=== PATIENT | female | born 1965 | race Caucasian/White ===

== ENCOUNTER 2016-05-16 21:22 | Observation (INO) | payer MEDICARE, MEDICAID ==
[~2016-05-16] VITALS: Ht 167.6 cm; Wt 93.5 kg
[~2016-05-16 21:22] MED LIST: ?ANTIBIOTIC; ABILIFY; ALPR0.25 PO; AMOX400T12 PO; ARIP15TA; ARIP15TA PO; ARIP20TA9 PO; ARMO250T3 PO; ARPZ10T; ARPZ10T PO; ATOR20TA66 PO; BREX2TAB; CEFD300C3 PO; CEFU500T PO; CEPH-507 PO; CEPH500C; CEPH500C PO; CITA40TA19 PO; CLIN300C3 PO; COUMADIN; DARI15TA4 PO; DICL75TA2 PO; DOXY-13 PO; DOXY100T61 PO; ESCI20TA2; ESCI20TA38 PO; ESCT10T; FENO54TA PO; FEXO-45 PO; FURO20TA4; FURO40TA4 PO; FURO80TA PO; GLIP-197; GLIP10TA13 PO; GLIP10TA23 PO; GLIP5TAB13 PO; GLIPIZIDE; GLPZ10TCR; GLPZ5TCR; HYDR-2890 PO; HYDR-34 PO; HYDR-3720 PO; HYDR-3812; HYDR-3812 PO; HYDR118S10 PO; HYDR1CAP2 PO; HYDR1TAB PO; HYDROCODONE BIT/ACET; IBP800T PO; INSULIN; LANTUS; LEVO40CA PO; LEXAPRO; LISI10TA PO; LISI20TA2 PO; MECL-124 PO; MECL25TA56 PO; METF-380 PO; METF500T; METFORMIN; METR500T21 PO; MPR22T TOP; MPR22T TP; MTF500T; MTF500T PO; MULT-608; MULT-963 PO; NITR-65 PO; NITR100C3 PO; PHEN-639 PO; PHEN200T27 PO; PNT40TEC PO; POTA10CA16 PO; POTA10CA43 PO; POTA20TA15 PO; RT-ALBUINH IH; SCR1T1 PO; SMXTMP10ML PO; SOLI10TA4 PO; SULF1TAB35 PO; SULF1TAB38 PO; TOPI50TA2 PO; TRAM-21 PO; TRAM-42 PO; TRAM50TA2 PO; VENL75CA93 PO; WARF10TA PO; WARF10TA4 PO; WARF10TA44 PO; WARF7.5T; WRF10T; WRF10T PO; WRF3T; XANAX; [UNRECOGNIZED DRUG - CODE] PO; [UNRECOGNIZED DRUG - OTHER] PO
--- OUTSIDE RECORDS SUMMARY | 2016-05-16 21:27 | XMS REPORT | Continuity of Care Document ---
Author Author [facility] Organization [facility] Address Unknown Phone Unavailable Care Team Providers Care Brand Advisor Name Role Phone Jorge Rocha PCP [phone] Source Comments Some departments are not documenting in the electronic medical record. If you do not see the information that you expected, contact Release of Information in the Health Information Management department at [phone] for further assistance in locating additional records.[facility] Active Allergies and Adverse Reactions Allergen Noted Date Severity Reactions Comments Bactrim 12/07/2013 HIVES Levaquin 12/07/2013 SYNCOPE Tachycardia Current Medications Prescription Sig. Disp. Refills Start End Date Status Date metformin-ER(+) Take 1,000 mg by mouth Active (FORTAMET) 1,000 mg twice daily. tablet lidocaine (LIDODERM) 5 % Apply to knee daily as 30 Patch 1 12/08/19 Active topical patch needed 14 furosemide (LASIX) 40 mg Take 40 mg by mouth twice Active tablet daily. Iloperidone (FANAPT) 12 Take 24 mg by mouth Active mg tab daily. ARIPiprazole (ABILIFY) 5 Take 5 mg by mouth daily. Active mg tablet ALPRAZolam (XANAX) 0.5 mg Take 0.5 mg by mouth Active tablet three times daily as needed. albuterol (VENTOLIN HFA, Inhale 2 Puffs by mouth Active PROAIR HFA) 90 every 6 hours as needed. mcg/actuation inhaler topiramate (TOPAMAX) 50 Take 100 mg by mouth Active mg tablet twice daily. dextroamphetamine SR Take 10 mg by mouth twice Active (DEXEDRINE SPANSULE) 10 daily mg capsule potassium chloride SR Take 20 mEq by mouth Active (K-DUR) 20 mEq tablet daily. exenatide(+) (RICCI) 10 Inject 10 mcg into Active mcg/dose(250 mcg/mL) 2.4 area(s) as directed twice mL pnij injection pen daily with meals. atorvastatin (LIPITOR) 20 Take 20 mg by mouth Active mg tablet daily. Insulin Una Use as directed. Active (Disposable) (BD INSULIN PEN NEEDLE UF MINI) 31 x 3/16 " ndle WARFARIN SODIUM (WARFARIN Take by mouth. Active PO) glipiZIDE (GLUCOTROL) 5 Take 10 mg by mouth twice Active mg tablet daily with meals. fluticasone (FLONASE) 50 Apply 2 Sprays to each Active mcg/actuation nasal spray nostril as directed daily. armodafinil(+) (NUVIGIL) Take 250 mg by mouth Active 250 mg tab tablet daily. Active Problems Problem Noted Date Knee pain 12/07/2013 DM (diabetes mellitus) (HCC) 12/07/2013 History of DVT (deep vein thrombosis) 12/07/2013 Bilateral lower extremity edema 12/07/2013 Social History Tobacco Use Types Packs/Day Years Used Date Current Some Day Smoker 0.5 20 Alcohol Use Drinks/Week oz/Week Comments No Last Filed Vital Signs Vital Sign Reading Time Taken Blood Pressure 128/89 12/07/2013 10:22 AM CDT Pulse 88 12/07/2013 10:22 AM CDT Temperature 36.8 C (98.2 F) 12/07/2013 10:22 AM CDT Respiratory Rate 20 12/07/2013 10:22 AM CDT Height 1.65 m (5' 4.96") 12/07/2013 10:22 AM CDT Weight 91.082 kg (200 lb 12.8 12/07/2013 10:22 AM CDT oz) Body Mass Index 33.46 12/07/2013 10:22 AM CDT Oxygen Saturation - - Plan of Care Health Maintenance Due Date Last Done Comments Physical (Comprehensive) 09/28/1971 Exam Pertussis Vaccine 09/28/1975 Tetanus Vaccine 1981 Cervical Cancer Screening 1985 Breast Cancer Screening 2004 Colorectal Cancer 2014 Screening Influenza Vaccine 11/10/2015 Results from Last 3 Months Not on file
[2016-05-16 22:03] LABS: BASOPHILS % (AUTO) 0 % (0-10); EOSINOPHILS # (AUTO) 0.3 10^3/uL (0.0-0.3); EOSINOPHILS % (AUTO) 2 % (0-10); LYMPHOCYTES # (AUTO) 4.6 X 10^3 (1.0-4.0); LYMPHOCYTES % (AUTO) 38 % (12-44); MEAN CORPUSCULAR HEMOGLOBIN 31 PG (25-34); MEAN CORPUSCULAR HGB CONC 35 G/DL (32-36); MEAN CORPUSCULAR VOLUME 88 FL (80-99); MEAN PLATELET VOLUME 10.5 FL (7.4-10.4); MONOCYTES % (AUTO) 8 % (0-12); NEUTROPHILS # (AUTO) 6.3 X 10^3 (1.8-7.8); NEUTROPHILS % (AUTO) 52 % (42-75); PLATELET COUNT 231 10^3/uL (130-400); RED BLOOD COUNT 4.83 10^6/uL (4.35-5.85); RED CELL DISTRIBUTION WIDTH 13.1 % (10.0-14.5); WHITE BLOOD COUNT 12.2 10^3/uL (4.3-11.0)
[2016-05-16 22:12] LABS: BILIRUBIN,URINE NEGATIVE (NEGATIVE); KETONES,URINE NEGATIVE (NEGATIVE); LEUKOCYTE ESTERASE ,URINE NEGATIVE (NEGATIVE); NITRITE,URINE NEGATIVE (NEGATIVE); PH,URINE 6 (5-9); PROTEIN,URINE NEGATIVE (NEGATIVE); UROBILINOGEN,URINE NORMAL (NORMAL)
[2016-05-16 22:19] LABS: SQUAMOUS EPITHELIAL CELL,UR 0-2 /HPF; WBC,URINE 0-2 /HPF
[2016-05-16 22:25] LABS: ALANINE AMINOTRANSFERASE 19 U/L (0-55); ALBUMIN 3.9 G/DL (3.2-4.5); ANION GAP 12 MMOL/L (5-14); ASPARTATE AMINO TRANSFERASE 15 U/L (5-34); BILIRUBIN,TOTAL 0.3 MG/DL (0.1-1.0); BLOOD UREA NITROGEN 16 MG/DL (7-18); BUN/CREATININE RATIO 21; CALCIUM 9.2 MG/DL (8.5-10.1); CARBON DIOXIDE 21 MMOL/L (21-32); CHLORIDE 105 MMOL/L (98-107); CREATININE SERUM 0.77 MG/DL (0.60-1.30); GFR ESTIMATED > 60; GLUCOSE 240 MG/DL (70-105); MAGNESIUM 1.8 MG/DL (1.8-2.4); SALICYLATE < 5.0 MG/DL (5.0-20.0); SODIUM 138 MMOL/L (135-145); TOTAL PROTEIN 6.9 G/DL (6.4-8.2)
[2016-05-16 22:26] LABS: ACETAMINOPHEN < 10 UG/ML (10-30); ALCOHOL < 10 MG/DL (<10)
--- NOTE | 2016-05-16 22:51 | ED Psychosocial ---
General Chief Complaint: Overdose Stated Complaint: SUICIDE ATTEMPT Nursing Triage Note: PT TO ED 2 PER EMS FOR C/O SUICIDE ATTEMPT ONSET 2054 AFTER TAKING 18MG OF REXULTE. PT HIGHLY AGITATED, HOSTILE TOWARDS STAFF Source: patient Exam Limitations: no limitations History of Present Illness Time seen by provider: 21:29 Initial Comments This 50-year-old woman presents to the emergency room after over dosing on Rexulti as a suicide attempt. She reports being depressed because of missing her father whose birthday is tomorrow. She took the 9 tablets of Rexulti hoping that she would fall asleep and not wake up. She has a desire to "be with him" referring to her father. She denies any drug or alcohol use. She was initially resistant to care and eloped out the trauma bay doors. She was retrieved by EMS and staff. After discussion with this provider, she agreed to admission and to cooperate with evaluation. She is established with [facility]. She also has a lead case managermanaged care manager tomorrow at 11:00. Allergies and Home Medications Allergies Coded Allergies: levofloxacin (Verified Allergy, Unknown, 06/21/14) sulfamethoxazole (Unverified Allergy, Unknown, 06/21/14) trimethoprim (Unverified Allergy, Unknown, 06/21/14) Home Medications Atorvastatin 20 Mg Tablet 20 MG PO DAILY (Reported) Brexpiprazole 2 Mg Tablet #30 (Reported) Cefdinir 300 Mg Capsule #14 300 MG PO BID Prescribed by: FRANCO MORRISSEY on 10/16/15 1640 Furosemide 20 Mg Tablet #21 (Reported) Glipizide 10 Mg Tab.sr.24h 10 MG PO DAILY (Reported) Hydrocodone/Acetaminophen 1 Each Tablet #42 1 PO Q4H PRN PRN PAIN (Reported) Metformin Hcl 1,000 Mg Tablet 1,000 MG PO BID (Reported) Venlafaxine HCl 75 Mg Cap.er.24h #30 75 MG PO DAILY (Reported) Constitutional: no symptoms reported EENTM: no symptoms reported Respiratory: no symptoms reported Cardiovascular: no symptoms reported Gastrointestinal: no symptoms reported Genitourinary: no symptoms reported : No Musculoskeletal: no symptoms reported Skin: no symptoms reported Psychiatric/Neurological: See HPI Past Grvsrkt-Pkkytw-Ldutmk Hx Patient Social History Alcohol Use: Denies Use Recreational Drug Use: No Smoking Status: Current Everyday Smoker Type Used: Cigarettes 2nd Hand Smoke Exposure: No Recent Foreign Travel: No Contact w/Someone Who Travel: No Recent Infectious Disease Expo: No Recent Hopitalizations: Yes Immunizations Up To Date Tetanus Booster (TDap): Unknown Date of Pneumonia Vaccine: Jun 26, 2007 Date of Influenza Vaccine: Dec 09, 2013 Seasonal Allergies Seasonal Allergies: No Surgeries HX Surgeries: Yes (STENT IN R URETER, BACK SURGERY, SUSANA FILTER) Surgeries: Gallbladder, Hysterectomy, Orthopedic, Tubal Ligation Respiratory Hx Respiratory Disorders: Yes Respiratory Disorders: Asthma, Sleep Apnea, COPD Cardiovascular Hx Cardiac Disorders: Yes Cardiac Disorders: Coronary Artery Disease, Deep Vein Thrombosis Neurological Hx Neurological Disorders: No Neurological Disorders: Neuropathy 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 System Hx 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 Disorders: No Sexually Transmitted Disease: No HIV/AIDS: No 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 Genitourinary Hx Genitourinary Disorders: Yes Genitourinary Disorders: Kidney Stones Gastrointestinal Hx Gastrointestinal Disorders: No Gastrointestinal Disorders: Gastroesophageal Reflux Musculoskeletal Hx Musculoskeletal Disorders: Yes Musculoskeletal Disorders: Arthritis Endocrine Hx Endocrine Disorders: Yes Endocrine Disorders: Diabetes, Non-Insulin dep HEENT HX ENT Disorders: No Loss of Vision: Denies Hearing Impairment: Denies Cancer Hx Cancer: No Psychosocial Hx Psychiatric Problems: Yes Behavioral Health Disorders: Bipolar, Depression Integumentary HX Skin/Integumentary Disorder: No Blood Transfusions Hx Blood Disorders: Yes (HX OF BLOOD CLOTS) Adverse Reaction to a Blood Tr: No Family Medical History Significant Family History: No Pertinent Family Hx Family Medial History: Diabetes mellitus 19 FATHER EMPHYSEMA 19 FATHER EPIEPSY G8 SISTER Hypertension 19 MOTHER STROKE 19 MOTHER No Family History of: Asthma Physical Exam Vital Signs Vital Sign - Last 12Hours 05/16/16 21:23 Temp 98.1 Pulse 69 Resp 16 B/P 126/88 Pulse Ox 99 O2 Delivery Room Air Capillary Refill : Less Than 3 Seconds General Appearance: WD/WN mild distress HEENT: PERRL/EOMI normal ENT inspection Neck: normal inspection Respiratory: lungs clear normal breath sounds no respiratory distress no accessory muscle use Cardiovascular: regular rate, rhythm no edema no murmur Extremities: normal inspection Neurologic/Psychiatric: high pressure operator II-XII nml as tested no motor/sensory deficits alert oriented x 3 other (depressed yet has inappropriate laughter at times) Appearance/Memory: disheveled impaired insight Behavior/Eye Contact: cooperative (after coaxing) good eye contact normal speech Thoughts/Hallucinations: other (suicidal ideation with plan to overdose) Skin: normal color warm/dry Progress/Results/Core Measures Results/Orders Lab Results Laboratory Tests Test 05/16/16 21:56 05/16/16 22:03 Range/Units Acetaminophen Level < 10 L 10-30 UG/ML Alanine Aminotransferase (ALT/SGPT) 19 0-55 U/L Albumin 3.9 3.2-4.5 G/DL Alkaline Phosphatase 76 40-136 U/L Anion Gap 12 5-14 MMOL/L Aspartate Amino Transf (AST/SGOT) 15 5-34 U/L BUN/Creatinine Ratio 21 Basophils # (Auto) 0.0 0.0-0.1 10^3/uL Basophils (%) (Auto) 0 0-10 % Blood Urea Nitrogen 16 7-18 MG/DL Calcium Level 9.2 8.5-10.1 MG/DL Carbon Dioxide Level 21 21-32 MMOL/L Chloride Level 105 98-107 MMOL/L Creatinine 0.77 0.60-1.30 MG/DL Eosinophils # (Auto) 0.3 0.0-0.3 10^3/uL Eosinophils (%) (Auto) 2 0-10 % Estimat Glomerular Filtration Rate > 60 Glucose Level 240 H 70-105 MG/DL Hematocrit 43 35-52 % Hemoglobin 14.9 11.5-16.0 G/DL Lymphocytes # (Auto) 4.6 H 1.0-4.0 X 10^3 Lymphocytes (%) (Auto) 38 12-44 % Magnesium Level 1.8 1.8-2.4 MG/DL Mean Corpuscular Hemoglobin 31 25-34 PG Mean Corpuscular Hemoglobin Concent 35 32-36 G/DL Mean Corpuscular Volume 88 80-99 FL Mean Platelet Volume 10.5 H 7.4-10.4 FL Monocytes # (Auto) 1.0 0.0-1.0 X 10^3 Monocytes (%) (Auto) 8 0-12 % Neutrophils # (Auto) 6.3 1.8-7.8 X 10^3 Neutrophils (%) (Auto) 52 42-75 % Platelet Count 231 130-400 10^3/uL Potassium Level 4.0 3.6-5.0 MMOL/L Red Blood Count 4.83 4.35-5.85 10^6/uL Red Cell Distribution Width 13.1 10.0-14.5 % Salicylates Level < 5.0 L 5.0-20.0 MG/DL Serum Alcohol < 10 <10 MG/DL Sodium Level 138 135-145 MMOL/L TSH [place] Testing 4.32 0.35-4.94 UIU/ML Total Bilirubin 0.3 0.1-1.0 MG/DL Total Protein 6.9 6.4-8.2 G/DL White Blood Count 12.2 H 4.3-11.0 10^3/uL Ur Tricyclic Antidepressants Screen NEGATIVE NEGATIVE Urine Amphetamines Screen NEGATIVE NEGATIVE Urine Bacteria NEGATIVE /HPF Urine Barbiturates Screen NEGATIVE NEGATIVE Urine Benzodiazepines Screen NEGATIVE NEGATIVE Urine Bilirubin NEGATIVE NEGATIVE Urine Cannabinoids Screen NEGATIVE NEGATIVE Urine Casts NONE /LPF Urine Clarity CLEAR Urine Cocaine Screen NEGATIVE NEGATIVE Urine Color YELLOW Urine Crystals NONE /LPF Urine Culture Indicated NO Urine Glucose (UA) 1+ H NEGATIVE Urine Ketones NEGATIVE NEGATIVE Urine Leukocyte Esterase NEGATIVE NEGATIVE Urine Methadone Screen NEGATIVE NEGATIVE Urine Methamphetamines Screen NEGATIVE NEGATIVE Urine Mucus NEGATIVE /LPF Urine Nitrite NEGATIVE NEGATIVE Urine Opiates Screen NEGATIVE NEGATIVE Urine Oxycodone Screen NEGATIVE NEGATIVE Urine Phencyclidine Screen NEGATIVE NEGATIVE Urine Propoxyphene Screen NEGATIVE NEGATIVE Urine Protein NEGATIVE NEGATIVE Urine RBC NONE /HPF Urine RBC (Auto) 2+ H NEGATIVE Urine Specific [place] 1.010 L 1.016-1.022 Urine Squamous Epithelial Cells 0-2 /HPF Urine Urobilinogen NORMAL NORMAL MG/DL Urine WBC 0-2 /HPF Urine pH 6 5-9 My Orders Orders-ROYCE KNUTSON MD Acetaminophen (05/16/16 21:29) Alcohol (05/16/16 21:29) Cbc With Automated Diff (05/16/16 21:29) Comprehensive Metabolic Panel (05/16/16 21:29) Drug Screen Stat (Urine) (05/16/16 21:29) Magnesium (05/16/16 21:29) Salicylate (05/16/16 21:29) Thyroid Analyzer (05/16/16 21:29) Ua Culture If Indicated (05/16/16 21:29) Saline Lock/Iv-Start (05/16/16 21:29) Ekg Tracing (05/16/16 21:29) Monitor-Rhythm Ecg Trace Only (05/16/16 21:29) Vital Signs/I&O Vital Sign - Last 12Hours 3/8/17 21:23 Temp 98.1 Pulse 69 Resp 16 B/P 126/88 Pulse Ox 99 O2 Delivery Room Air Blood Pressure Mean: 101 Progress Note : Progress Note Patient was hemodynamically stable and alert. Because of the rocio suicidal expression, she will be admitted and observed overnight. Nursing staff contacted poison control who advised monitoring for LUMBER PLANER suppression. ECG Initial ECG Impression Date: May 16, 2016 Initial ECG Impression Time: 22:12 Initial ECG Rate: 68 Initial ECG Rhythm: Normal Sinus Initial ECG Impression: Normal Comment normal sinus rhythm with no ST elevation or depression. Left axis deviation. No abnormal intervals. Departure Communication Time/Spoke to Admitting Phy: 22:35 Communication Case was discussed with Dr. Pino who agrees with admission to the ICU. Impression Impression: Primary Impression: Drug overdose Qualified Code: T50.902A - Poisoning by unspecified drugs, medicaments and biological substances, intentional self-harm, initial encounter Additional Impression: SUICIDAL IDEATIONS Disposition: ADMITTED INPATIENT Condition: Stable Decision to Admit Reason: Admit from ER (General) Decision to Admit/Date: May 16, 2016 Time/Decision to Admit Time: 21:45 Departure-Patient Inst. Referrals: MAXI PINO DO (PCP/Family) Primary Care Physician Patient Instructions: ALCOHOL AND SUBSTANCE ABUSE ROYCE KNUTSON MD May 16, 2016 22:51
[2016-05-17 00:20] VITALS: BP 115/79
[2016-05-17 01:00] VITALS: BP 139/92
[2016-05-17 02:00] VITALS: BP 106/59
[2016-05-17 04:00] VITALS: BP 121/85
[2016-05-17] MEDS ORDERED: ONDANSETRON 4 MG (ZOFRAN) ORAL DISSOLVE TAB PO PRN (04:00)
[2016-05-17 04:26] LABS: BASOPHILS % (AUTO) 0 % (0-10); EOSINOPHILS # (AUTO) 0.2 10^3/uL (0.0-0.3); EOSINOPHILS % (AUTO) 2 % (0-10); LYMPHOCYTES # (AUTO) 3.7 X 10^3 (1.0-4.0); LYMPHOCYTES % (AUTO) 42 % (12-44); MEAN CORPUSCULAR HEMOGLOBIN 31 PG (25-34); MEAN CORPUSCULAR HGB CONC 35 G/DL (32-36); MEAN CORPUSCULAR VOLUME 89 FL (80-99); MEAN PLATELET VOLUME 10.5 FL (7.4-10.4); MONOCYTES # (AUTO) 0.8 X 10^3 (0.0-1.0); MONOCYTES % (AUTO) 9 % (0-12); NEUTROPHILS # (AUTO) 4.1 X 10^3 (1.8-7.8); NEUTROPHILS % (AUTO) 47 % (42-75); PLATELET COUNT 225 10^3/uL (130-400); RED BLOOD COUNT 4.78 10^6/uL (4.35-5.85); RED CELL DISTRIBUTION WIDTH 13.3 % (10.0-14.5); WHITE BLOOD COUNT 8.9 10^3/uL (4.3-11.0)
[2016-05-17 04:51] LABS: ALANINE AMINOTRANSFERASE 18 U/L (0-55); ALBUMIN 3.8 G/DL (3.2-4.5); ANION GAP 11 MMOL/L (5-14); ASPARTATE AMINO TRANSFERASE 14 U/L (5-34); BILIRUBIN,TOTAL 0.3 MG/DL (0.1-1.0); BLOOD UREA NITROGEN 13 MG/DL (7-18); BUN/CREATININE RATIO 19; CALCIUM 9.1 MG/DL (8.5-10.1); CARBON DIOXIDE 21 MMOL/L (21-32); CHLORIDE 108 MMOL/L (98-107); GFR ESTIMATED > 60; GLUCOSE 226 MG/DL (70-105); MAGNESIUM 1.7 MG/DL (1.8-2.4); PHOSPHORUS 4.3 MG/DL (2.3-4.7); SODIUM 140 MMOL/L (135-145); TOTAL PROTEIN 6.8 G/DL (6.4-8.2)
[2016-05-17 06:00] VITALS: BP 128/78
[2016-05-17] MEDS ORDERED: inSUlin (REGULAR) HUMAN 1 UNIT/0.01 ML (CHARGE PER UNIT) SC SCH (06:00)
[2016-05-17] MEDS ORDERED: glipiZIDE 5 MG (GLUCOTROL) TAB PO SCH (06:30)
[2016-05-17] MEDS ORDERED: metFORMIN 500 MG (GLUCOPHAGE) TAB PO SCH (07:00)
[2016-05-17] MEDS ORDERED: FLU TRIvalent (5 YOA+) 2016-17 (AFLURIA) 0.5 ML IM ONE (07:15)
[2016-05-17] MEDS ORDERED: MAGNESIUM OXIDE (MAG-OX)400 MG TAB PO NR (07:30)
--- NOTE | 2016-05-17 07:30 | History & Physicial ---
History of Present Illness History of Present Illness Reason for visit/HPI patient made a suicide attempt after taking 18 mg of Rexulti. Patient father birthday today and she wanted to join him Patient's father is . Patient being seen by mental health. Patient states she's depressed.. To have mental health evaluate this morning Date of Admission May 16, 2016 at 10:56 pm I consulted on this patient on 05/17/16 07:26 Attending Physician Som Pino DO Admitting Physician Som Pino DO Consult Allergies and Home Medications Allergies Coded Allergies: levofloxacin (Verified Allergy, Unknown, 06/21/14) sulfamethoxazole (Unverified Allergy, Unknown, 06/21/14) trimethoprim (Unverified Allergy, Unknown, 06/21/14) Home Medications Atorvastatin 20 Mg Tablet 20 MG PO DAILY (Reported) Brexpiprazole 2 Mg Tablet #30 (Reported) Cefdinir 300 Mg Capsule #14 300 MG PO BID Prescribed by: FRANCO MORRISSEY on 10/16/15 1640 Furosemide 20 Mg Tablet #21 (Reported) Glipizide 10 Mg Tab.sr.24h 10 MG PO DAILY (Reported) Hydrocodone/Acetaminophen 1 Each Tablet #42 1 PO Q4H PRN PRN PAIN (Reported) Metformin Hcl 1,000 Mg Tablet 1,000 MG PO BID (Reported) Venlafaxine HCl 75 Mg Cap.er.24h #30 75 MG PO DAILY (Reported) Past Txjuyqo-Knntkr-Sefeit Hx Patient Social History Alcohol Use: Denies Use Recreational Drug Use: No Smoking Status: Current Everyday Smoker Type Used: Cigarettes 2nd Hand Smoke Exposure: No Physical Abuse Screen: No Sexual Abuse: No Recent Foreign Travel: No Contact w/other who traveled: No Recent Hopitalizations: Yes Recent Infectious Disease Expo: No Immunizations Up To Date Tetanus Booster (TDap): Unknown Date of Pneumonia Vaccine: Jun 26, 2007 Date of Influenza Vaccine: Dec 09, 2013 Seasonal Allergies Seasonal Allergies: No Surgeries HX Surgeries: Yes (STENT IN R URETER, BACK SURGERY, SUSANA FILTER) Surgeries: Gallbladder, Hysterectomy, Orthopedic, Tubal Ligation Respiratory Hx Respiratory Disorders: Yes Cardiovascular Hx Cardiovascular Disorders: Yes Cardiac Disorders: Coronary Artery Disease, Deep Vein Thrombosis Neurological Hx Neurological Disorders: No Neurological Disorders: Neuropathy 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 System : No Hx 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 Disorders: No Sexually Transmitted Disease: No HIV/AIDS: No 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 Genitourinary Hx Genitourinary Disorders: Yes Genitourinary Disorders: Kidney Stones Gastrointestinal Hx Gastrointestinal Disorders: No Gastrointestinal Disorders: Gastroesophageal Reflux Musculoskeletal Hx Musculoskeletal Disorders: Yes Musculoskeletal Disorders: Arthritis Endocrine Hx Endocrine Disorders: Yes Endocrine Disorders: Diabetes, Non-Insulin dep HEENT HX ENT Disorders: No Loss of Vision: Denies Hearing Impairment: Denies Cancer Hx Cancer: No Psychosocial Hx Psychiatric Problems: Yes Behavioral Health Disorders: Bipolar, Depression Integumentary HX Skin/Integumentary Disorder: No Blood Transfusions Hx Blood Disorders: Yes (HX OF BLOOD CLOTS) Adverse Reaction to a Blood Tr: No Family Medical History Significant Family History: No Pertinent Family Hx Family Hx: Diabetes mellitus 19 FATHER EMPHYSEMA 19 FATHER EPIEPSY G8 SISTER Hypertension 19 MOTHER STROKE 19 MOTHER No Family History of: Asthma Constitutional: no symptoms reported EENTM: no symptoms reported Respiratory: no symptoms reported Cardiovascular: no symptoms reported Gastrointestinal: no symptoms reported Genitourinary: no symptoms reported Physical Exam Vital Signs Vital Sign - Last 12Hours 05/16/16 21:23 Temp 98.1 Pulse 69 Resp 16 B/P 126/88 Pulse Ox 99 O2 Delivery Room Air Capillary Refill : Less Than 3 Seconds General Appearance: No Apparent Distress WD/WN Eyes: Bilateral Eye Normal Inspection HEENT: Normal ENT Inspection Neck: Full Range of Motion Normal Inspection Respiratory: Chest Non Tender Lungs Clear Normal Breath Sounds No Accessory Muscle Use No Respiratory Distress Cardiovascular: Regular Rate, Rhythm No Murmur Gastrointestinal: Non Tender Soft Assessment/Plan Assessment and Plan intentional drug overdose. Suicidal ideation. Diabetes. Patient to be evaluated by mental health. Clinical Quality Measures DVT/VTE Risk/Contraindication: Risk Factor Score Per Nursin RFS Level Per Nursing on Admit: 4+=Very High SOM PINO DO May 17, 2016 7:30 am
[2016-05-17] MEDS ORDERED: ENOXAPARIN 40 MG/0.4 ML (LOVENOX) SYR SC SCH (08:00)
--- NOTE | 2016-05-17 08:53 | Diagnostic Imaging Report ---
EXAMINATION: Portable erect AP chest obtained at 429h. INDICATION: Respiratory distress This exam is less than optimal as the patient is slightly rotated and the superior mediastinum is obscured by the patient's chin. The heart size is within normal limits and stable when compared to 02/21/15. The lungs are clear. There is no sign of failure, pneumonia or a pleural effusion to suggest an acute abnormality. The mediastinum, where visualized is unremarkable. The osseous structures are intact. IMPRESSION: 1. There is no evidence for an acute cardiopulmonary abnormality on this suboptimal exam. 2. If clinical concern regarding an underlying abnormality persists, then a followup PA and lateral chest would be recommended for further study. Dictated by: Dictated on workstation # [id number]
--- NOTE | 2016-05-31 09:56 | Physician Query-Final Dx ---
Final Diagnosis Give Final Diagnosis Please give Final Diagnosis MIGUEL LAYTON May 31, 2016 09:56
--- OUTSIDE RECORDS SUMMARY | 2016-06-19 11:59 | XMS REPORT ---
Author RAIN Samuels [facility] [employer] Address Unknown Phone Unavailable Care Team Providers Care President And Cmo Name Role Phone RAIN MAY CP Unavailable Allergies, Adverse Reactions, Alerts Substance Reaction Event Type Lisinopril Info Not Available Drug Allergy Levaquin Hypogltcemia (per patient.) Drug Allergy Cozaar Info Not Available Drug Allergy Bactrim DS Info Not Available Drug Allergy Problems Problem Type Condition Code Onset Dates Condition Status Assessment Medication monitoring encounter Z51.81 Active Assessment Diabetes E11.9 Active Assessment History of DVT (deep vein thrombosis) Z86.718 Active Problem Dysfunction of Eustachian tube 381.81 Active Problem Routine general medical examination at health care facility V70.0 Active Problem Hemoptysis, unspecified 786.30 Active Problem Schizoaffective disorder, unspecified 295.70 Active Problem Cellulitis and abscess of leg, except foot 682.6 Active Problem Attention deficit disorder of childhood without mention of hyperactivity 314.00 Active Problem Unspecified local infection of skin and subcutaneous tissue 686.9 Active Problem Bipolar disorder, unspecified 296.80 Active Problem Other atopic dermatitis and related conditions 691.8 Active Problem Urinary tract infection, site not specified 599.0 Active Problem Pediculus capitis (head louse) 132.0 Active Problem Bipolar I disorder, most recent episode (or current) mixed, severe, specified as with psychotic behavior 296.64 Active Problem History of DVT (deep vein thrombosis) Z86.718 Active Problem Medication monitoring encounter Z51.81 Active Problem Unspecified backache 724.5 Active Problem Diabetes mellitus without mention of complication, type I [juvenile type], uncontrolled 250.03 Active Problem Diabetes E11.9 Active Problem Effusion of ankle and foot joint 719.07 Active Problem Intervertebral lumbar disc disorder with myelopathy, 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 Problem Attention deficit disorder of childhood with hyperactivity 314.01 Active Problem Orthostatic hypotension 458.0 Active Problem Acute upper respiratory infections of unspecified site 465.9 Active Problem Unspecified breast screening V76.10 Active Problem Contact or exposure to other viral diseases V01.79 Active Problem Unspecified venous (peripheral) insufficiency 459.81 Active Problem Need for prophylactic vaccination and inoculation, Influenza V04.81 Active Problem Unspecified follow-up examination V67.9 Active Problem Diabetes mellitus without mention of complication, type II or unspecified type, uncontrolled 250.02 Active Problem Problems related to high-risk sexual behavior V69.2 Active Problem 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.1 Active Medications Medication Code System Code Instructions Start Date End Date Status Dosage GlipiZIDE [facility] [address]-96 10 MG May 27, 2014 1 tablet by Oral route 2 times per day Abilify [facility] [address]-62 20 MG Orally Once a day 1 tablet Lasix [facility] [address]-71 20 mg 1 TAB orally once a day Jan 07, 2014 1 tablet Lipitor [facility] [address]-31 20 mg Feb 11, 2014 1 tablet by Oral route 1 time per day metformin [facility] [address]-63 1,000 mg 2 times a day May 27, 2014 take 1 tablet by Oral route with morning and evening meals 2 times per day Effexor XR [facility] [address]-44 75 MG Orally Once a day 1 capsule with food Coumadin [facility] [address]-88 10 MG Orally Once a day 1 tablet Procedures Procedure Coding System Code Date PROTHROMBIN TIME CPT-4 67996 Mar 14, 2015 Office Visit, Est Pt., Level 3 CPT-4 53541 Mar 14, 2015 GLYCATED HEMOGLOBIN TEST CPT-4 13234 Mar 14, 2015 Vital Signs Date/Time: Mar 14, 2015 Temperature 98.0 F Weight 178.1 lbs Height 66 in BMI 28.74 Index Blood Pressure Diastolic 78 mmHg Blood Pressure Systolic 126 mmHg Cardiac Monitoring Heart Rate 80 bpm Results Name Result Date Reference Range Unit Abnormality Flag A1C (IN HOUSE) ----A1C IN HOUSE 5.7% 20150314 4.30 - 5.6 % ----Lot # [id number] ----Exp date [id number] INR (IN HOUSE) ----Lot # [id number] ----Exp date [id number] ----PREVIOUS INR 3.8 [id number] ----CURRENT COUMADIN DOSE 10 mg 1 tablet T. Omar Lopez, and Kristin. 1.5 tablets M, W , F [id number] ----INR 1.4 [id number] 1.10 - 3.30 Summary Purpose eClinicalWorks Submission
--- OUTSIDE RECORDS SUMMARY | 2016-06-19 11:59 | XMS REPORT ---
Author Author RAIN MAY [facility] eClinicalWorks Address Unknown Phone Unavailable Care Team Providers Care Flatwork Tier Name Role Phone RAIN MAY CP Unavailable Allergies No Known Allergies Problems Problem Type Condition Code Onset Dates Condition Status Problem Dysfunction of Eustachian tube 381.81 Active Problem Routine general medical examination at health care facility V70.0 Active Problem 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.1 Active Problem Hemoptysis, unspecified 786.30 Active Problem Unspecified follow-up examination V67.9 Active Problem Schizoaffective disorder, unspecified 295.70 Active Problem Diabetes mellitus without mention of complication, type II or unspecified type, uncontrolled 250.02 Active Problem Bipolar disorder, unspecified 296.80 Active Problem Attention deficit disorder of childhood without mention of hyperactivity 314.00 Active Problem Acute upper respiratory infections of unspecified site 465.9 Active Problem Intervertebral lumbar disc disorder with myelopathy, 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 Problem Other atopic dermatitis and related conditions 691.8 Active Problem Unspecified local infection of skin and subcutaneous tissue 686.9 Active Problem Orthostatic hypotension 458.0 Active Problem Cellulitis and abscess of leg, except foot 682.6 Active Problem Bipolar I disorder, most recent episode (or current) mixed, severe, specified as with psychotic behavior 296.64 Active Problem Urinary tract infection, site not specified 599.0 Active Problem Attention deficit disorder of childhood with hyperactivity 314.01 Active Problem Pediculus capitis (head louse) 132.0 Active Problem Unspecified backache 724.5 Active Problem Unspecified venous (peripheral) insufficiency 459.81 Active Problem Effusion of ankle and foot joint 719.07 Active Problem Diabetes mellitus without mention of complication, type I [juvenile type], uncontrolled 250.03 Active Problem Contact or exposure to other viral diseases V01.79 Active Problem Problems related to high-risk sexual behavior V69.2 Active Problem Need for prophylactic vaccination and inoculation, Influenza V04.81 Active Problem Unspecified breast screening V76.10 Active Medications Medication Code System Code Instructions Start Date End Date Status Dosage metformin [facility] [id number] 1,000 mg 2 times a day May 27, 2014 take 1 tablet by Oral route with morning and evening meals 2 times per day Results No Known Results Summary Purpose eClinicalWorks Submission
--- OUTSIDE RECORDS SUMMARY | 2016-06-19 11:59 | XMS REPORT | Continuity of Care Document ---
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 If you do not see the information that you expected, contact Release of Information in the Health Information Management department at [phone] for further assistance in locating additional records.[facility] Active Allergies and Adverse Reactions Allergen Noted [...] by mouth Active mg tablet daily. Insulin [place] Use as directed. Active (Disposable) (BD INSULIN [...] Health Maintenance Due Date Last Done Comments Hepatitis C Screening 1964 Physical (Comprehensive) 09/28/1971 Exam Pertussis Vaccine 09/28/1975 Tetanus Vaccine 1981 Cervical Cancer Screening 1985 Breast Cancer Screening 2004 Colorectal Cancer 2014 Screening Influenza Vaccine 11/09/2016 Results from Last 3 Months Not on file
--- OUTSIDE RECORDS SUMMARY | 2016-06-19 12:00 | XMS REPORT ---
Author Author SANDIE VICTOR e[employer] Address Unknown Phone Unavailable Care Team Providers Care [employer]man [employer] Name Role Phone SANDIE VICTOR CP Unavailable Allergies No Known Allergies Problems Problem Type Condition ICD-9 Code Onset Dates Condition Status Assessment Dental examination V72.2 Active Problem Dysfunction of Eustachian tube 381.81 [...] Problem Unspecified breast screening V76.10 Active Medications No Known Medications Procedures Procedure Coding System Code Date Billing Notes on claim CPT-4 EC109 Oct 29, 2014 BITEWINGS - FOUR FILMS CPT-4 D0274 Oct 29, 2014 Results No Known Results Summary Purpose eClinicalWorks Submission
--- OUTSIDE RECORDS SUMMARY | 2016-06-19 12:07 | XMS REPORT | Continuity of Care Document ---
Author Author [facility] Address Unknown Phone Unavailable Allergies Active Description Code Type Severity Reaction Onset Reported/Identified Relationship to Patient Clinical Status Yes Bactrim DS 800-160 mg Tablet Drug Allergy N/A N/A 07/06/2011 Yes Bactrim DS 800-160 mg Tablet Drug Allergy 07/06/2011 Yes lisinopril 10 mg tablet Drug Allergy N/A N/A 03/06/2012 Yes lisinopril 10 mg tablet Drug Allergy 03/06/2012 Yes lisinopril 5 mg tablet Drug Allergy N/A N/A 04/18/2012 Yes lisinopril 5 mg tablet Drug Allergy 04/18/2012 Yes Levaquin Drug Allergy N/A N/A 07/07/2012 Yes Levaquin Drug Allergy 07/07/2012 Yes Cozaar 25 mg tablet Drug Allergy N/A N/A 11/27/2012 Yes levofloxacin [id number] Drug Allergy Unknown N/A 06/21/2014 Yes sulfamethoxazole [id number] Drug Allergy Unknown N/A 06/21/2014 Yes trimethoprim [id number] Drug Allergy Unknown N/A 06/21/2014 Medications Problems Date Dx Coded Attending Type Code Diagnosis Diagnosed By 06/28/2009 RAIN MAY MD 250.00 DIABETES MELLITUS 06/28/2009 RAIN MAY MD 459.81 Venous Insufficiency 06/28/2009 RAIN MAY MD 250.00 DIABETES MELLITUS 06/28/2009 RAIN MAY MD 459.81 Venous Insufficiency 06/28/2009 250.00 DIABETES MELLITUS 06/28/2009 459.81 Venous Insufficiency 06/28/2009 RAIN MAY MD 250.00 DIABETES MELLITUS 06/28/2009 RAIN MAY MD 459.81 Venous Insufficiency 06/28/2009 RAIN MAY MD 250.00 DIABETES MELLITUS 06/28/2009 RAIN MAY MD 459.81 Venous Insufficiency 06/28/2009 250.00 DIABETES MELLITUS 06/28/2009 459.81 Venous Insufficiency 06/28/2009 HINTON DOCHANDRA K 250.00 DIABETES MELLITUS 06/28/2009 HINTON DOCHANDRA K 459.81 Venous Insufficiency 06/28/2009 250.00 DIABETES MELLITUS 06/28/2009 459.81 Venous Insufficiency 06/28/2009 JOSE A DDS, SEGUNDO F 250.00 DIABETES MELLITUS 06/28/2009 JOSE A DDS, SEGUNDO F 459.81 Venous Insufficiency 06/28/2009 RAIN MAY MD 250.00 DIABETES MELLITUS 06/28/2009 RAIN MAY MD 459.81 Venous Insufficiency 06/28/2009 250.00 DIABETES MELLITUS 06/28/2009 459.81 Venous Insufficiency 06/28/2009 250.00 DIABETES MELLITUS 06/28/2009 459.81 Venous Insufficiency 06/28/2009 250.00 DIABETES MELLITUS 06/28/2009 459.81 Venous Insufficiency 06/28/2009 250.00 DIABETES MELLITUS 06/28/2009 459.81 Venous Insufficiency 06/28/2009 250.00 DIABETES MELLITUS 06/28/2009 459.81 Venous Insufficiency 06/28/2009 250.00 DIABETES MELLITUS 06/28/2009 459.81 Venous Insufficiency 06/28/2009 250.00 DIABETES MELLITUS 06/28/2009 459.81 Venous Insufficiency 06/28/2009 250.00 DIABETES MELLITUS 06/28/2009 459.81 Venous Insufficiency 06/28/2009 250.00 DIABETES MELLITUS 06/28/2009 459.81 Venous Insufficiency 06/28/2009 250.00 DIABETES MELLITUS 06/28/2009 459.81 Venous Insufficiency 06/28/2009 250.00 DIABETES MELLITUS 06/28/2009 459.81 Venous Insufficiency 06/28/2009 HEAVEN SCHAEFFER APRN N 250.00 DIABETES MELLITUS 06/28/2009 HEAVEN SCHAEFFER APRN N 459.81 Venous Insufficiency 06/28/2009 HEAVEN SCHAEFFER APRN N 250.00 DIABETES MELLITUS 06/28/2009 HEAVEN SCHAEFFER APRN N 459.81 Venous Insufficiency 06/28/2009 RAIN MAY MD 250.00 DIABETES MELLITUS 06/28/2009 RAIN MAY MD 459.81 Venous Insufficiency 06/28/2009 RAIN MAY MD 250.00 DIABETES MELLITUS 06/28/2009 RAIN MAY MD 459.81 Venous Insufficiency 06/28/2009 RAIN MAY MD 250.00 DIABETES MELLITUS 06/28/2009 RAIN MAY MD 459.81 Venous Insufficiency 06/28/2009 RAIN MAY MD 250.00 DIABETES MELLITUS 06/28/2009 RAIN MAY MD 459.81 Venous Insufficiency 06/28/2009 [employer] NATIONAL BUSINESS DIRECTOR, RODNEY S 250.00 DIABETES MELLITUS 06/28/2009 MUSHTAQ CASTANEDAN, RODNEY S 459.81 Venous Insufficiency 06/28/2009 PERICO RAMIRESS, ADELINA Diaz 250.00 DIABETES MELLITUS 06/28/2009 PERIOC BARBOUR, ADELINA Diaz 459.81 Venous Insufficiency 06/28/2009 RAIN MAY MD 250.00 DIABETES MELLITUS 06/28/2009 RAIN MAY MD 459.81 Venous Insufficiency 06/28/2009 RAIN MAY MD 250.00 DIABETES MELLITUS 06/28/2009 RAIN MAY MD 459.81 Venous Insufficiency 06/28/2009 RAIN MAY MD 250.00 DIABETES MELLITUS 06/28/2009 RAIN MAY MD 459.81 Venous Insufficiency 06/28/2009 RIAN MAY MD 250.00 DIABETES MELLITUS 06/28/2009 RAIN MAY MD 459.81 Venous Insufficiency 06/28/2009 MARTIN RAMIRESS, ELDER J 250.00 DIABETES MELLITUS 06/28/2009 MARTIN RAMIRESS, ELDER J 459.81 Venous Insufficiency 06/28/2009 RAIN MAY MD 250.00 DIABETES MELLITUS 06/28/2009 RAIN MAY MD 459.81 Venous Insufficiency 06/28/2009 RAIN MAY MD 250.00 DIABETES MELLITUS 06/28/2009 RAIN MAY MD 459.81 Venous Insufficiency 06/28/2009 RAIN MAY MD 250.00 DIABETES MELLITUS 06/28/2009 RAIN MAY MD 459.81 Venous Insufficiency 06/28/2009 MARTIN DDS, ELDER J 250.00 DIABETES MELLITUS 06/28/2009 MARTIN DDS, ELDER J 459.81 Venous Insufficiency 06/28/2009 RAIN MAY MD 250.00 DIABETES MELLITUS 06/28/2009 RAIN MAY MD 459.81 Venous Insufficiency 06/28/2009 250.00 DIABETES MELLITUS 06/28/2009 459.81 Venous Insufficiency 06/28/2009 YADIRA DAN, RAIN 250.00 DIABETES MELLITUS 06/28/2009 YADIRA DAN, RAIN 459.81 Venous Insufficiency 06/28/2009 PRAKASH DDS, JAHAIRA 250.00 DIABETES MELLITUS 06/28/2009 PRAKASH DDS, JAHAIRA 459.81 Venous Insufficiency 06/28/2009 YADIRA DAN, RAIN 250.00 DIABETES MELLITUS 06/28/2009 YADIRA DAN, RAIN 459.81 Venous Insufficiency 06/28/2009 MOSES NATIONAL BUSINESS DIRECTOR, LUIS WHEELER 250.00 DIABETES MELLITUS 06/28/2009 MOSES NATIONAL BUSINESS DIRECTOR, LUIS WHEELER 459.81 Venous Insufficiency 06/28/2009 WHITE DDS, ELDER J 250.00 DIABETES MELLITUS 06/28/2009 WHITE DDS, ELDER J 459.81 Venous Insufficiency 06/28/2009 YADIRA DAN, RAIN 250.00 DIABETES MELLITUS 06/28/2009 YADIRA DAN, RAIN 459.81 Venous Insufficiency 06/28/2009 YADIRA DAN, RAIN 250.00 DIABETES MELLITUS 06/28/2009 YADIRA DAN, RANI 459.81 Venous Insufficiency 06/28/2009 YADIRA DAN, RAIN 250.00 DIABETES MELLITUS 06/28/2009 YADIRA DAN, RAIN 459.81 Venous Insufficiency 06/28/2009 YADIRA DAN, RAIN 250.00 DIABETES MELLITUS 06/28/2009 YADIRA DAN, RAIN 459.81 Venous Insufficiency 06/28/2009 YADIRA DAN, RAIN 250.00 DIABETES MELLITUS 06/28/2009 RAIN MAY MD 459.81 Venous Insufficiency 06/28/2009 DEMETRA NATIONAL BUSINESS DIRECTOR, GAURAV 250.00 DIABETES MELLITUS 06/28/2009 DEMETRA NATIONAL BUSINESS DIRECTOR, GAURAV 459.81 Venous Insufficiency 06/28/2009 RAIN MAY MD 250.00 DIABETES MELLITUS 06/28/2009 RAIN MAY MD9.81 Venous Insufficiency 06/28/2009 YADIRA DAN, RAIN 250.00 DIABETES MELLITUS 06/28/2009 YADIRA DAN, RAIN 459.81 Venous Insufficiency 06/28/2009 DEMETRA NATIONAL BUSINESS DIRECTOR, GAURAV 250.00 DIABETES MELLITUS 06/28/2009 DEMETRA NATIONAL BUSINESS DIRECTOR, GAURAV 459.81 Venous Insufficiency 06/28/2009 DEMETRA NATIONAL BUSINESS DIRECTOR, GAURAV 250.00 DIABETES MELLITUS 06/28/2009 GAURAV MCCRARY APRN 459.81 Venous Insufficiency 09/21/2009 YADIRA DAN, RAIN V58.69 MEDICATION HIGH RISK 09/21/2009 YADIRA DAN, RAIN V58.69 MEDICATION HIGH RISK 09/21/2009 V58.69 MEDICATION HIGH RISK 09/21/2009 YADIRA DAN, RAIN V58.69 MEDICATION HIGH RISK 09/21/2009 YADIRA ADN, RAIN V58.69 MEDICATION HIGH RISK 09/21/2009 V58.69 MEDICATION HIGH RISK 09/21/2009 JAMAAL OVERTON CHANDRA Barbosa V58.69 MEDICATION HIGH RISK 09/21/2009 V58.69 MEDICATION HIGH RISK 09/21/2009 JOSE A DDS, SEGUNDO Choi V58.69 MEDICATION HIGH RISK 09/21/2009 YADIRA DAN, RAIN V58.69 MEDICATION HIGH RISK 09/21/2009 V58.69 MEDICATION HIGH RISK 09/21/2009 V58.69 MEDICATION HIGH RISK 09/21/2009 V58.69 MEDICATION HIGH RISK 09/21/2009 V58.69 MEDICATION HIGH RISK 09/21/2009 V58.69 MEDICATION HIGH RISK 09/21/2009 V58.69 MEDICATION HIGH RISK 09/21/2009 V58.69 MEDICATION HIGH RISK 09/21/2009 V58.69 MEDICATION HIGH RISK 09/21/2009 V58.69 MEDICATION HIGH RISK 09/21/2009 V58.69 MEDICATION HIGH RISK 09/21/2009 V58.69 MEDICATION HIGH RISK 09/21/2009 HEAVEN SCHAEFFER APRN N V58.69 MEDICATION HIGH RISK 09/21/2009 HEAVEN SCHAEFFER APRN N V58.69 MEDICATION HIGH RISK 09/21/2009 YADIRA DAN, RAIN V58.69 MEDICATION HIGH RISK 09/21/2009 YADIRA DAN, RAIN V58.69 MEDICATION HIGH RISK 09/21/2009 YADIRA DAN, RAIN V58.69 MEDICATION HIGH RISK 09/21/2009 YADIRA DAN, RAIN V58.69 MEDICATION HIGH RISK 09/21/2009 RODNEY LANDIN APRN V58.69 MEDICATION HIGH RISK 09/21/2009 ADELINA RIVER DDS V58.69 MEDICATION HIGH RISK 09/21/2009 YADIRA DAN, RAIN V58.69 MEDICATION HIGH RISK 09/21/2009 YADIRA DAN, RAIN V58.69 MEDICATION HIGH RISK 09/21/2009 YADIRA DAN, RAIN V58.69 MEDICATION HIGH RISK 09/21/2009 YADIRA DAN, RAIN V58.69 MEDICATION HIGH RISK 09/21/2009 WHITE DDS, ELDER Sims V58.69 MEDICATION HIGH RISK 09/21/2009 YADIRA DAN, RAIN V58.69 MEDICATION HIGH RISK 09/21/2009 YADIRA DAN, RAIN V58.69 MEDICATION HIGH RISK 09/21/2009 YADIRA DAN, RAIN V58.69 MEDICATION HIGH RISK 09/21/2009 WHITE DDS, ELDER Sims V58.69 MEDICATION HIGH RISK 09/21/2009 YADIRA DAN, RAIN V58.69 MEDICATION HIGH RISK 09/21/2009 V58.69 MEDICATION HIGH RISK 09/21/2009 YADIRA DAN, RAIN V58.69 MEDICATION HIGH RISK 09/21/2009 DWAIN DDS, JAHAIRA V58.69 MEDICATION HIGH RISK 09/21/2009 YADIRA DAN, RAIN V58.69 MEDICATION HIGH RISK 09/21/2009 JOSUÉ CANELA LUIS WHEELER V58.69 MEDICATION HIGH RISK 09/21/2009 WHITE DDS, ELDER Sims V58.69 MEDICATION HIGH RISK 09/21/2009 YADIRA DAN, RAIN V58.69 MEDICATION HIGH RISK 09/21/2009 YADIRA DAN, RAIN V58.69 MEDICATION HIGH RISK 09/21/2009 YADIRA DAN, RAIN V58.69 MEDICATION HIGH RISK 09/21/2009 YADIRA DAN, RAIN V58.69 MEDICATION HIGH RISK 09/21/2009 YADIRA DAN, RAIN V58.69 MEDICATION HIGH RISK 09/21/2009 GAURAV MCCRARY APRN V58.69 MEDICATION HIGH RISK 09/21/2009 YADIRA DAN, RAIN V58.69 MEDICATION HIGH RISK 09/21/2009 YADIRA DAN, RAIN V58.69 MEDICATION HIGH RISK 09/21/2009 GAURAV MCCRARY APRN V58.69 MEDICATION HIGH RISK 09/21/2009 GAURAV MCCRARY APRN V58.69 MEDICATION HIGH RISK 11/01/2009 Ot 682.6 11/01/2009 Ot 916.1 11/01/2009 Ot E000.8 11/01/2009 Ot E885.9 11/04/2009 RAIN MAY MD 686.9 Unspecified Local Infection Of Skin And Subcutaneous Tissue 11/04/2009 RAIN MAY MD 686.9 Unspecified Local Infection Of Skin And Subcutaneous Tissue 11/04/2009 686.9 Unspecified Local Infection Of Skin And Subcutaneous Tissue 11/04/2009 RAIN MAY MD 686.9 Unspecified Local Infection Of Skin And Subcutaneous Tissue 11/04/2009 RAIN MAY MD 686.9 Unspecified Local Infection Of Skin And Subcutaneous Tissue 11/04/2009 686.9 Unspecified Local Infection Of Skin And Subcutaneous Tissue 11/04/2009 CESILIA HINTON DOA Familia 686.9 Unspecified Local Infection Of Skin And Subcutaneous Tissue 11/04/2009 686.9 Unspecified Local Infection Of Skin And Subcutaneous Tissue 11/04/2009 JOSE A DDSEGUNDO Guo 686.9 Unspecified Local Infection Of Skin And Subcutaneous Tissue 11/04/2009 RAIN MAY MD 686.9 Unspecified Local Infection Of Skin And Subcutaneous Tissue 11/04/2009 686.9 Unspecified Local Infection Of Skin And Subcutaneous Tissue 11/04/2009 686.9 Unspecified Local Infection Of Skin And Subcutaneous Tissue 11/04/2009 686.9 Unspecified Local Infection Of Skin And Subcutaneous Tissue 11/04/2009 686.9 Unspecified Local Infection Of Skin And Subcutaneous Tissue 11/04/2009 686.9 Unspecified Local Infection Of Skin And Subcutaneous Tissue 11/04/2009 686.9 Unspecified Local Infection Of Skin And Subcutaneous Tissue 11/04/2009 686.9 Unspecified Local Infection Of Skin And Subcutaneous Tissue 11/04/2009 686.9 Unspecified Local Infection Of Skin And Subcutaneous Tissue 11/04/2009 686.9 Unspecified Local Infection Of Skin And Subcutaneous Tissue 11/04/2009 686.9 Unspecified Local Infection Of Skin And Subcutaneous Tissue 11/04/2009 686.9 Unspecified Local Infection Of Skin And Subcutaneous Tissue 11/04/2009 HEAVEN SCHAEFFER APRN 686.9 Unspecified Local Infection Of Skin And Subcutaneous Tissue 11/04/2009 HEAVEN SCHAEFFER APRN N 686.9 Unspecified Local Infection Of Skin And Subcutaneous Tissue 11/04/2009 RAIN MAY MD 686.9 Unspecified Local Infection Of Skin And Subcutaneous Tissue 11/04/2009 RAIN MAY MD 686.9 Unspecified Local Infection Of Skin And Subcutaneous Tissue 11/04/2009 RAIN MAY MD 686.9 Unspecified Local Infection Of Skin And Subcutaneous Tissue 11/04/2009 RAIN MAY MD 686.9 Unspecified Local Infection Of Skin And Subcutaneous Tissue 11/04/2009 RODNEY LANDIN APRN 686.9 Unspecified Local Infection Of Skin And Subcutaneous Tissue 11/04/2009 ADELINA RIVER DDS 686.9 Unspecified Local Infection Of Skin And Subcutaneous Tissue 11/04/2009 RAIN MAY MD 686.9 Unspecified Local Infection Of Skin And Subcutaneous Tissue 11/04/2009 RAIN MAY MD6.9 Unspecified Local Infection Of Skin And Subcutaneous Tissue 11/04/2009 RAIN MAY MD 686.9 Unspecified Local Infection Of Skin And Subcutaneous Tissue 11/04/2009 RAIN MAY MD 686.9 Unspecified Local Infection Of Skin And Subcutaneous Tissue 11/04/2009 ELDER SALAZAR DDS 686.9 Unspecified Local Infection Of Skin And Subcutaneous Tissue 11/04/2009 RAIN MAY MD 686.9 Unspecified Local Infection Of Skin And Subcutaneous Tissue 11/04/2009 RAIN MAY MD 686.9 Unspecified Local Infection Of Skin And Subcutaneous Tissue 11/04/2009 RAIN MAY MD 686.9 Unspecified Local Infection Of Skin And Subcutaneous Tissue 11/04/2009 ELDER SALAZAR DDS 686.9 Unspecified Local Infection Of Skin And Subcutaneous Tissue 11/04/2009 RAIN MAY MD 686.9 Unspecified Local Infection Of Skin And Subcutaneous Tissue 11/04/2009 686.9 Unspecified Local Infection Of Skin And Subcutaneous Tissue 11/04/2009 RAIN MAY MD 686.9 Unspecified Local Infection Of Skin And Subcutaneous Tissue 11/04/2009 JAHAIRA PRAKASH DDS 686.9 Unspecified Local Infection Of Skin And Subcutaneous Tissue 11/04/2009 RAIN MAY MD 686.9 Unspecified Local Infection Of Skin And Subcutaneous Tissue 11/04/2009 LUIS MOSES APRN 686.9 Unspecified Local Infection Of Skin And Subcutaneous Tissue 11/04/2009 ELDER SALAZAR DDS 686.9 Unspecified Local Infection Of Skin And Subcutaneous Tissue 11/04/2009 RAIN MAY MD 686.9 Unspecified Local Infection Of Skin And Subcutaneous Tissue 11/04/2009 RAIN MAY MD 686.9 Unspecified Local Infection Of Skin And Subcutaneous Tissue 11/04/2009 RAIN MAY MD 686.9 Unspecified Local Infection Of Skin And Subcutaneous Tissue 11/04/2009 RAIN MAY MD 686.9 Unspecified Local Infection Of Skin And Subcutaneous Tissue 11/04/2009 RAIN MAY MD 686.9 Unspecified Local Infection Of Skin And Subcutaneous Tissue 11/04/2009 DEMETRA NATIONAL BUSINESS DIRECTOR, GAURAV 686.9 Unspecified Local Infection Of Skin And Subcutaneous Tissue 11/04/2009 RAIN MAY MD 686.9 Unspecified Local Infection Of Skin And Subcutaneous Tissue 11/04/2009 RAIN MAY MD 686.9 Unspecified Local Infection Of Skin And Subcutaneous Tissue 11/04/2009 DEMETRA NATIONAL BUSINESS DIRECTOR, GAURAV 686.9 Unspecified Local Infection Of Skin And Subcutaneous Tissue 11/04/2009 DEMETRA NATIONAL BUSINESS DIRECTOR, GAURAV 686.9 Unspecified Local Infection Of Skin And Subcutaneous Tissue 11/14/2009 Ot 682.6 11/25/2009 RAIN MAY MD 707.10 Ulcer Of Lower Limb, Unspecified 11/25/2009 RAIN MAY MD 707.10 Ulcer Of Lower Limb, Unspecified 11/25/2009 707.10 Ulcer Of Lower Limb, Unspecified 11/25/2009 RAIN MAY MD 707.10 Ulcer Of Lower Limb, Unspecified 11/25/2009 RAIN MAY MD 707.10 Ulcer Of Lower Limb, Unspecified 11/25/2009 707.10 Ulcer Of Lower Limb, Unspecified 11/25/2009 JAMAAL OVERTON, CHANDRA Barbosa 707.10 Ulcer Of Lower Limb, Unspecified 11/25/2009 707.10 Ulcer Of Lower Limb, Unspecified 11/25/2009 JOSE A DDS, SEGUNDO Choi 707.10 Ulcer Of Lower Limb, Unspecified 11/25/2009 RAIN MAY MD 707.10 Ulcer Of Lower Limb, Unspecified 11/25/2009 707.10 Ulcer Of Lower Limb, Unspecified 11/25/2009 707.10 Ulcer Of Lower Limb, Unspecified 11/25/2009 707.10 Ulcer Of Lower Limb, Unspecified 11/25/2009 707.10 Ulcer Of Lower Limb, Unspecified 11/25/2009 707.10 Ulcer Of Lower Limb, Unspecified 11/25/2009 707.10 Ulcer Of Lower Limb, Unspecified 11/25/2009 707.10 Ulcer Of Lower Limb, Unspecified 11/25/2009 707.10 Ulcer Of Lower Limb, Unspecified 11/25/2009 707.10 Ulcer Of Lower Limb, Unspecified 11/25/2009 707.10 Ulcer Of Lower Limb, Unspecified 11/25/2009 707.10 Ulcer Of Lower Limb, Unspecified 11/25/2009 KAILEE CARBONE NATIONAL BUSINESS DIRECTOR, HEAVEN N 707.10 Ulcer Of Lower Limb, Unspecified 11/25/2009 KALIEE CARBONE APRN, HEAVEN N 707.10 Ulcer Of Lower Limb, Unspecified 11/25/2009 RAIN MAY MD 707.10 Ulcer Of Lower Limb, Unspecified 11/25/2009 RAIN MAY MD 707.10 Ulcer Of Lower Limb, Unspecified 11/25/2009 RAIN MAY MD 707.10 Ulcer Of Lower Limb, Unspecified 11/25/2009 RAIN MAY MD 707.10 Ulcer Of Lower Limb, Unspecified 11/25/2009 MUSHTAQ CANELA, RODNEY Guo 707.10 Ulcer Of Lower Limb, Unspecified 11/25/2009 ADELINA RIVER DDS 707.10 Ulcer Of Lower Limb, Unspecified 11/25/2009 RAIN MAY MD 707.10 Ulcer Of Lower Limb, Unspecified 11/25/2009 RAIN MAY MD 707.10 Ulcer Of Lower Limb, Unspecified 11/25/2009 RAIN MAY MD 707.10 Ulcer Of Lower Limb, Unspecified 11/25/2009 RAIN MAY MD 707.10 Ulcer Of Lower Limb, Unspecified 11/25/2009 ELDER SALAZAR DDS 707.10 Ulcer Of Lower Limb, Unspecified 11/25/2009 RAIN MAY MD 707.10 Ulcer Of Lower Limb, Unspecified 11/25/2009 RAIN MAY MD 707.10 Ulcer Of Lower Limb, Unspecified 11/25/2009 RAIN MAY MD 707.10 Ulcer Of Lower Limb, Unspecified 11/25/2009 MARTIN BARBOUR, ELDER Sims 707.10 Ulcer Of Lower Limb, Unspecified 11/25/2009 RAIN MAY MD 707.10 Ulcer Of Lower Limb, Unspecified 11/25/2009 707.10 Ulcer Of Lower Limb, Unspecified 11/25/2009 RAIN MAY MD 707.10 Ulcer Of Lower Limb, Unspecified 11/25/2009 DWAIN BARBOUR, JAHAIRA 707.10 Ulcer Of Lower Limb, Unspecified 11/25/2009 RAIN MAY MD 707.10 Ulcer Of Lower Limb, Unspecified 11/25/2009 LUIS MOSES APRN 707.10 Ulcer Of Lower Limb, Unspecified 11/25/2009 MARTIN BARBOUR, ELDER Sims 707.10 Ulcer Of Lower Limb, Unspecified 11/25/2009 RAIN MAY MD 707.10 Ulcer Of Lower Limb, Unspecified 11/25/2009 RAIN MAY MD 707.10 Ulcer Of Lower Limb, Unspecified 11/25/2009 RAIN MAY MD 707.10 Ulcer Of Lower Limb, Unspecified 11/25/2009 RAIN MAY MD 707.10 Ulcer Of Lower Limb, Unspecified 11/25/2009 RAIN MAY MD 707.10 Ulcer Of Lower Limb, Unspecified 11/25/2009 GAURAV MCCRARY APRN 707.10 Ulcer Of Lower Limb, Unspecified 11/25/2009 RAIN MAY MD 707.10 Ulcer Of Lower Limb, Unspecified 11/25/2009 RAIN MAY MD 707.10 Ulcer Of Lower Limb, Unspecified 11/25/2009 DEMETRA NATIONAL BUSINESS DIRECTOR, GAURAV 707.10 Ulcer Of Lower Limb, Unspecified 11/25/2009 DEMETRA NATIONAL BUSINESS DIRECTOR, GAURAV 707.10 Ulcer Of Lower Limb, Unspecified 11/27/2009 Ot 454.2 11/27/2009 Ot 707.13 12/16/2009 Ot 682.6 12/16/2009 Ot 729.81 01/26/2010 RAIN MAY MD 783.1 Abnormal Weight Gain 01/26/2010 RAIN MAY MD 783.1 Abnormal Weight Gain 01/26/2010 783.1 Abnormal Weight Gain 01/26/2010 RAIN MAY MD 783.1 Abnormal Weight Gain 01/26/2010 RAIN MAY MD 783.1 Abnormal Weight Gain 01/26/2010 783.1 Abnormal Weight Gain 01/26/2010 CHANDRA HINTON DO 783.1 Abnormal Weight Gain 01/26/2010 783.1 Abnormal Weight Gain 01/26/2010 JOSE A BARBOUR, SEGUNDO Choi 783.1 Abnormal Weight Gain 01/26/2010 RAIN MAY MD 783.1 Abnormal Weight Gain 01/26/2010 783.1 Abnormal Weight Gain 01/26/2010 783.1 Abnormal Weight Gain 01/26/2010 783.1 Abnormal Weight Gain 01/26/2010 783.1 Abnormal Weight Gain 01/26/2010 783.1 Abnormal Weight Gain 01/26/2010 783.1 Abnormal Weight Gain 01/26/2010 783.1 Abnormal Weight Gain 01/26/2010 783.1 Abnormal Weight Gain 01/26/2010 783.1 Abnormal Weight Gain 01/26/2010 783.1 Abnormal Weight Gain 01/26/2010 783.1 Abnormal Weight Gain 01/26/2010 KAILEE CARBONE APRN, HEAVEN N 783.1 Abnormal Weight Gain 01/26/2010 KAILEE CARBONE APRN, HEAVEN N 783.1 Abnormal Weight Gain 01/26/2010 RAIN MAY MD 783.1 Abnormal Weight Gain 01/26/2010 RAIN MAY MD 783.1 Abnormal Weight Gain 01/26/2010 RAIN MAY MD 783.1 Abnormal Weight Gain 01/26/2010 RAIN MAY MD 783.1 Abnormal Weight Gain 01/26/2010 RODNEY LANDIN APRN S 783.1 Abnormal Weight Gain 01/26/2010 ADELINA RIVER DDS 783.1 Abnormal Weight Gain 01/26/2010 RAIN MAY MD 783.1 Abnormal Weight Gain 01/26/2010 RAIN MAY MD 783.1 Abnormal Weight Gain 01/26/2010 RAIN MAY MD 783.1 Abnormal Weight Gain 01/26/2010 RAIN MAY MD 783.1 Abnormal Weight Gain 01/26/2010 ELDER SALAZAR DDS 783.1 Abnormal Weight Gain 01/26/2010 RAIN MAY MD 783.1 Abnormal Weight Gain 01/26/2010 RAIN MAY MD 783.1 Abnormal Weight Gain 01/26/2010 RAIN MAY MD 783.1 Abnormal Weight Gain 01/26/2010 ELDER SALAAZR DDS 783.1 Abnormal Weight Gain 01/26/2010 RAIN MAY MD 783.1 Abnormal Weight Gain 01/26/2010 783.1 Abnormal Weight Gain 01/26/2010 RAIN MAY MD 783.1 Abnormal Weight Gain 01/26/2010 JAHAIRA PRAKASH DDS 783.1 Abnormal Weight Gain 01/26/2010 RAIN MAY MD 783.1 Abnormal Weight Gain 01/26/2010 LUIS MOSES APRN 783.1 Abnormal Weight Gain 01/26/2010 ELDER SALAZAR DDS 783.1 Abnormal Weight Gain 01/26/2010 RAIN MAY MD 783.1 Abnormal Weight Gain 01/26/2010 RAIN MAY MD 783.1 Abnormal Weight Gain 01/26/2010 RAIN MAY MD 783.1 Abnormal Weight Gain 01/26/2010 RAIN MAY MD 783.1 Abnormal Weight Gain 01/26/2010 RAIN MAY MD3.1 Abnormal Weight Gain 01/26/2010 GAURAV MCCRARY APRN 783.1 Abnormal Weight Gain 01/26/2010 RAIN MAY MD 783.1 Abnormal Weight Gain 01/26/2010 RAIN MAY MD 783.1 Abnormal Weight Gain 01/26/2010 GAURAV MCCRARY APRN 783.1 Abnormal Weight Gain 01/26/2010 GAURAV MCCRARY APRN 783.1 Abnormal Weight Gain 03/16/2010 Ot 599.0 URIN TRACT INFECTION NOS 03/16/2010 Ot 724.2 LUMBAGO 03/16/2010 Ot 788.0 RENAL COLIC 03/16/2010 Ot 789.09 ABDOMINAL PAIN, OTHER SPECIFIED SITE 03/16/2010 Ot V58.61 ANTICOAGULANTS,LT,CURRENT USE 03/16/2010 Ot V58.69 OTH MED,LT,CURRENT USE 04/01/2010 Ot 719.46 JOINT PAIN-L/LEG 04/29/2010 Ot 522.5 PERIAPICAL ABSCESS 04/29/2010 Ot 525.9 DENTAL DISORDER NOS 04/29/2010 Ot 528.3 CELLULITIS/ABSCESS MOUTH 06/02/2010 RAIN MAY MD 465.9 Acute Upper Respiratory Infections Of Unspecified Site 06/02/2010 RAIN MAY MD 466.0 Acute Bronchitis 06/02/2010 RAIN MAY MD 465.9 Acute Upper Respiratory Infections Of Unspecified Site 06/02/2010 RAIN MAY MD 466.0 Acute Bronchitis 06/02/2010 465.9 Acute Upper Respiratory Infections Of Unspecified Site 06/02/2010 466.0 Acute Bronchitis 06/02/2010 RAIN MAY MD 465.9 Acute Upper Respiratory Infections Of Unspecified Site 06/02/2010 RAIN MAY MD 466.0 Acute Bronchitis 06/02/2010 RAIN MAY MD 465.9 Acute Upper Respiratory Infections Of Unspecified Site 06/02/2010 RAIN MAY MD 466.0 Acute Bronchitis 06/02/2010 465.9 Acute Upper Respiratory Infections Of Unspecified Site 06/02/2010 466.0 Acute Bronchitis 06/02/2010 HINTON DO, CHANDRA K 465.9 Acute Upper Respiratory Infections Of Unspecified Site 06/02/2010 HINTON DO, CHANDRA K 466.0 Acute Bronchitis 06/02/2010 465.9 Acute Upper Respiratory Infections Of Unspecified Site 06/02/2010 466.0 Acute Bronchitis 06/02/2010 JOSE A DDS, SEGUNDO F 465.9 Acute Upper Respiratory Infections Of Unspecified Site 06/02/2010 JOSE A DDS, SEGUNDO F 466.0 Acute Bronchitis 06/02/2010 RAIN MAY MD 465.9 Acute Upper Respiratory Infections Of Unspecified Site 06/02/2010 RAIN MAY MD 466.0 Acute Bronchitis 06/02/2010 465.9 Acute Upper Respiratory Infections Of Unspecified Site 06/02/2010 466.0 Acute Bronchitis 06/02/2010 465.9 Acute Upper Respiratory Infections Of Unspecified Site 06/02/2010 466.0 Acute Bronchitis 06/02/2010 465.9 Acute Upper Respiratory Infections Of Unspecified Site 06/02/2010 466.0 Acute Bronchitis 06/02/2010 465.9 Acute Upper Respiratory Infections Of Unspecified Site 06/02/2010 466.0 Acute Bronchitis 06/02/2010 465.9 Acute Upper Respiratory Infections Of Unspecified Site 06/02/2010 466.0 Acute Bronchitis 06/02/2010 465.9 Acute Upper Respiratory Infections Of Unspecified Site 06/02/2010 466.0 Acute Bronchitis 06/02/2010 465.9 Acute Upper Respiratory Infections Of Unspecified Site 06/02/2010 466.0 Acute Bronchitis 06/02/2010 465.9 Acute Upper Respiratory Infections Of Unspecified Site 06/02/2010 466.0 Acute Bronchitis 06/02/2010 465.9 Acute Upper Respiratory Infections Of Unspecified Site 06/02/2010 466.0 Acute Bronchitis 06/02/2010 465.9 Acute Upper Respiratory Infections Of Unspecified Site 06/02/2010 466.0 Acute Bronchitis 06/02/2010 465.9 Acute Upper Respiratory Infections Of Unspecified Site 06/02/2010 466.0 Acute Bronchitis 06/02/2010 DUGAN CASHERO [employer], [employer] N 465.9 Acute Upper Respiratory Infections Of Unspecified Site 06/02/2010 DUGAN CASHERO [employer], [employer] N 466.0 Acute Bronchitis 06/02/2010 DUGAN CASHERO NATIONAL BUSINESS DIRECTOR, HEAVEN N 465.9 Acute Upper Respiratory Infections Of Unspecified Site 06/02/2010 DUGAN CASHERO NATIONAL BUSINESS DIRECTOR, HEAVEN N 466.0 Acute Bronchitis 06/02/2010 RAIN MAY MD 465.9 Acute Upper Respiratory Infections Of Unspecified Site 06/02/2010 RAIN MAY MD 466.0 Acute Bronchitis 06/02/2010 RAIN MAY MD 465.9 Acute Upper Respiratory Infections Of Unspecified Site 06/02/2010 RAIN MAY MD 466.0 Acute Bronchitis 06/02/2010 RAIN MAY MD 465.9 Acute Upper Respiratory Infections Of Unspecified Site 06/02/2010 RAIN MAY MD 466.0 Acute Bronchitis 06/02/2010 RAIN MAY MD 465.9 Acute Upper Respiratory Infections Of Unspecified Site 06/02/2010 RAIN MAY MD 466.0 Acute Bronchitis 06/02/2010 MUSHTAQ NATIONAL BUSINESS DIRECTOR, RODNEY S 465.9 Acute Upper Respiratory Infections Of Unspecified Site 06/02/2010 MUSHTAQ NATIONAL BUSINESS DIRECTOR, RODNEY S 466.0 Acute Bronchitis 06/02/2010 PERICO RAMIRESS, ADELINA Diaz 465.9 Acute Upper Respiratory Infections Of Unspecified Site 06/02/2010 PERICO RAMIRESS, ADELINA M 466.0 Acute Bronchitis 06/02/2010 RAIN MAY MD 465.9 Acute Upper Respiratory Infections Of Unspecified Site 06/02/2010 YADIRA DAN, RAIN 466.0 Acute Bronchitis 06/02/2010 RAIN MAY MD 465.9 Acute Upper Respiratory Infections Of Unspecified Site 06/02/2010 YADIRA DAN, RAIN 466.0 Acute Bronchitis 06/02/2010 YADIRA DAN, RAIN 465.9 Acute Upper Respiratory Infections Of Unspecified Site 06/02/2010 RAIN MAY MD 466.0 Acute Bronchitis 06/02/2010 RAIN MAY MD 465.9 Acute Upper Respiratory Infections Of Unspecified Site 06/02/2010 RAIN MAY MD 466.0 Acute Bronchitis 06/02/2010 WHITE DDS, ELDER J 465.9 Acute Upper Respiratory Infections Of Unspecified Site 06/02/2010 WHITE DDS, ELDER J 466.0 Acute Bronchitis 06/02/2010 RAIN MAY MD 465.9 Acute Upper Respiratory Infections Of Unspecified Site 06/02/2010 RAIN MAY MD 466.0 Acute Bronchitis 06/02/2010 RAIN MAY MD 465.9 Acute Upper Respiratory Infections Of Unspecified Site 06/02/2010 RAIN MAY MD 466.0 Acute Bronchitis 06/02/2010 RAIN MAY MD 465.9 Acute Upper Respiratory Infections Of Unspecified Site 06/02/2010 RAIN MAY MD 466.0 Acute Bronchitis 06/02/2010 WHITE DDS, ELDER J 465.9 Acute Upper Respiratory Infections Of Unspecified Site 06/02/2010 WHITE DDS, ELDER J 466.0 Acute Bronchitis 06/02/2010 RAIN MAY MD 465.9 Acute Upper Respiratory Infections Of Unspecified Site 06/02/2010 RAIN MAY MD 466.0 Acute Bronchitis 06/02/2010 465.9 Acute Upper Respiratory Infections Of Unspecified Site 06/02/2010 466.0 Acute Bronchitis 06/02/2010 RAIN MAY MD 465.9 Acute Upper Respiratory Infections Of Unspecified Site 06/02/2010 RAIN MAY MD 466.0 Acute Bronchitis 06/02/2010 DWAIN RAMIRESSJAHAIRA 465.9 Acute Upper Respiratory Infections Of Unspecified Site 06/02/2010 DWAIN RAMIRESSJAHAIRA 466.0 Acute Bronchitis 06/02/2010 RAIN MAY MD 465.9 Acute Upper Respiratory Infections Of Unspecified Site 06/02/2010 RAIN MAY MD 466.0 Acute Bronchitis 06/02/2010 MOSES NATIONAL BUSINESS DIRECTOR, LUIS WHEELER 465.9 Acute Upper Respiratory Infections Of Unspecified Site 06/02/2010 MOSES NATIONAL BUSINESS DIRECTOR, LUIS WHEELER 466.0 Acute Bronchitis 06/02/2010 WHITE DDS, ELDER J 465.9 Acute Upper Respiratory Infections Of Unspecified Site 06/02/2010 WHITE DDS, ELDER J 466.0 Acute Bronchitis 06/02/2010 RAIN MAY MD 465.9 Acute Upper Respiratory Infections Of Unspecified Site 06/02/2010 RAIN MAY MD 466.0 Acute Bronchitis 06/02/2010 RAIN MAY MD 465.9 Acute Upper Respiratory Infections Of Unspecified Site 06/02/2010 RAIN MAY MD 466.0 Acute Bronchitis 06/02/2010 RAIN MAY MD 465.9 Acute Upper Respiratory Infections Of Unspecified Site 06/02/2010 RAIN MAY MD 466.0 Acute Bronchitis 06/02/2010 RAIN MAY MD 465.9 Acute Upper Respiratory Infections Of Unspecified Site 06/02/2010 RAIN MAY MD 466.0 Acute Bronchitis 06/02/2010 RAIN MAY MD 465.9 Acute Upper Respiratory Infections Of Unspecified Site 06/02/2010 RAIN MAY MD 466.0 Acute Bronchitis 06/02/2010 DEMETRA NATIONAL BUSINESS DIRECTOR, GAURAV 465.9 Acute Upper Respiratory Infections Of Unspecified Site 06/02/2010 DEMETRA NATIONAL BUSINESS DIRECTOR, GAURAV 466.0 Acute Bronchitis 06/02/2010 RAIN MAY MD 465.9 Acute Upper Respiratory Infections Of Unspecified Site 06/02/2010 RAIN MAY MD 466.0 Acute Bronchitis 06/02/2010 RAIN MAY MD 465.9 Acute Upper Respiratory Infections Of Unspecified Site 06/02/2010 RAIN MAY MD 466.0 Acute Bronchitis 06/02/2010 DEMETRA NATIONAL BUSINESS DIRECTOR, GAURAV 465.9 Acute Upper Respiratory Infections Of Unspecified Site 06/02/2010 DEMETRA NATIONAL BUSINESS DIRECTOR, GAURAV 466.0 Acute Bronchitis 06/02/2010 DEMETRA NATIONAL BUSINESS DIRECTOR, GAURAV 465.9 Acute Upper Respiratory Infections Of Unspecified Site 06/02/2010 DEMETRA NATIONAL BUSINESS DIRECTOR, GAURAV 466.0 Acute Bronchitis 07/18/2010 RAIN MAY MD 782.3 Edema 07/18/2010 YADIRA DAN, RAIN 782.3 Edema 07/18/2010 782.3 Edema 07/18/2010 YADIRA DAN, RAIN 782.3 Edema 07/18/2010 YADIRA DAN, RAIN 782.3 Edema 07/18/2010 782.3 Edema 07/18/2010 JAMAAL OVERTONCHANDRA 782.3 Edema 07/18/2010 782.3 Edema 07/18/2010 JOSE A BARBOUR, SEGUNDO Choi 782.3 Edema 07/18/2010 YADIRA DAN, RAIN 782.3 Edema 07/18/2010 782.3 Edema 07/18/2010 782.3 Edema 07/18/2010 782.3 Edema 07/18/2010 782.3 Edema 07/18/2010 782.3 Edema 07/18/2010 782.3 Edema 07/18/2010 782.3 Edema 07/18/2010 782.3 Edema 07/18/2010 782.3 Edema 07/18/2010 782.3 Edema 07/18/2010 782.3 Edema 07/18/2010 KAILEE CARBONE APRN, HEAVEN N 782.3 Edema 07/18/2010 KAILEE CARBONE APRN, HEAVEN N 782.3 Edema 07/18/2010 YADIRA DAN, RAIN 782.3 Edema 07/18/2010 YADIRA DAN, RAIN 782.3 Edema 07/18/2010 YADIRA DAN, RAIN 782.3 Edema 07/18/2010 YADIRA DAN, RAIN 782.3 Edema 07/18/2010 RODNEY LANDIN APRN 782.3 Edema 07/18/2010 PERICO BARBOUR, ADELINA Diaz 782.3 Edema 07/18/2010 YADIRA DAN, RAIN 782.3 Edema 07/18/2010 YADIRA DAN, RAIN 782.3 Edema 07/18/2010 YADIRA DAN, RAIN 782.3 Edema 07/18/2010 YADIRA DAN, RAIN 782.3 Edema 07/18/2010 MARTIN BARBOUR, ELDER Sims 782.3 Edema 07/18/2010 YADIRA DAN, RAIN 782.3 Edema 07/18/2010 YADIRA DAN, RAIN 782.3 Edema 07/18/2010 YADIRA DAN, RAIN 782.3 Edema 07/18/2010 MARTIN RAMIRESS, LEDER J 782.3 Edema 07/18/2010 YADIRA DAN, RAIN 782.3 Edema 07/18/2010 782.3 Edema 07/18/2010 YADIRA DAN, RAIN 782.3 Edema 07/18/2010 DWAIN BARBOUR, JAHAIRA 782.3 Edema 07/18/2010 YADIRA DAN, RAIN 782.3 Edema 07/18/2010 MOSES NATIONAL BUSINESS DIRECTOR, LUIS WHEELER 782.3 Edema 07/18/2010 MARTIN RAMIRESS, ELDER J 782.3 Edema 07/18/2010 YADIRA DAN, RAIN 782.3 Edema 07/18/2010 YADIRA DAN, RAIN 782.3 Edema 07/18/2010 YADIRA DAN, RAIN 782.3 Edema 07/18/2010 YADIRA DAN, RAIN 782.3 Edema 07/18/2010 YADIRA DAN, RAIN 782.3 Edema 07/18/2010 DEMETRA NATIONAL BUSINESS DIRECTOR, GAURAV 782.3 Edema 07/18/2010 YADIRA DAN, RAIN 782.3 Edema 07/18/2010 YADIRA DAN, RAIN 782.3 Edema 07/18/2010 DEMETRA NATIONAL BUSINESS DIRECTOR, GAURAV 782.3 Edema 07/18/2010 DEMETRA NATIONAL BUSINESS DIRECTOR, GAURAV 782.3 Edema 07/27/2010 RAIN MAY MD 724.3 Sciatica 07/27/2010 RAIN MAY MD 724.3 Sciatica 07/27/2010 724.3 Sciatica 07/27/2010 RAIN MAY MD 724.3 Sciatica 07/27/2010 RAIN MAY MD 724.3 Sciatica 07/27/2010 724.3 Sciatica 07/27/2010 CHANDRA HINTON DO 724.3 Sciatica 07/27/2010 724.3 Sciatica 07/27/2010 JOSE A BARBOUR, SEGUNDO Choi 724.3 Sciatica 07/27/2010 RAIN MAY MD 724.3 Sciatica 07/27/2010 724.3 Sciatica 07/27/2010 724.3 Sciatica 07/27/2010 724.3 Sciatica 07/27/2010 724.3 Sciatica 07/27/2010 724.3 Sciatica 07/27/2010 724.3 Sciatica 07/27/2010 724.3 Sciatica 07/27/2010 724.3 Sciatica 07/27/2010 724.3 Sciatica 07/27/2010 724.3 Sciatica 07/27/2010 724.3 Sciatica 07/27/2010 KAILEE CARBONE APRN, HEAVEN N 724.3 Sciatica 07/27/2010 KAILEE CARBONE APRN, HEAVEN N 724.3 Sciatica 07/27/2010 YADIRA DAN, RAIN 724.3 Sciatica 07/27/2010 YADIRA DAN, RAIN 724.3 Sciatica 07/27/2010 YADIRA DAN, RAIN 724.3 Sciatica 07/27/2010 YADIRA DAN, RAIN 724.3 Sciatica 07/27/2010 MUSHTAQ CANELA, RODNEY Guo 724.3 Sciatica 07/27/2010 ADELINA RIVER DDS 724.3 Sciatica 07/27/2010 YADIRA DAN, RAIN 724.3 Sciatica 07/27/2010 YADIRA DAN, RAIN 724.3 Sciatica 07/27/2010 YADIRA DAN, RAIN 724.3 Sciatica 07/27/2010 YADIRA DAN, RAIN 724.3 Sciatica 07/27/2010 ELDER SALAZAR DDS 724.3 Sciatica 07/27/2010 YADIRA DAN, RAIN 724.3 Sciatica 07/27/2010 YADIRA DAN, RAIN 724.3 Sciatica 07/27/2010 YADIRA DAN, RAIN 724.3 Sciatica 07/27/2010 ELDER SALAZAR DDS 724.3 Sciatica 07/27/2010 YADIRA DAN, RAIN 724.3 Sciatica 07/27/2010 724.3 Sciatica 07/27/2010 YADIRA DAN, RAIN 724.3 Sciatica 07/27/2010 JAHAIRA PRAKASH DDS 724.3 Sciatica 07/27/2010 YADIRA DAN, RAIN 724.3 Sciatica 07/27/2010 LUIS MOSES APRN 724.3 Sciatica 07/27/2010 ELDER SALAZAR DDS 724.3 Sciatica 07/27/2010 YADIRA DAN, RAIN 724.3 Sciatica 07/27/2010 YADIRA DAN, RAIN 724.3 Sciatica 07/27/2010 YADIRA DAN, RAIN 724.3 Sciatica 07/27/2010 YADIRA DAN, RAIN 724.3 Sciatica 07/27/2010 YADIRA DAN, RAIN 724.3 Sciatica 07/27/2010 DEMETRA NATIONAL BUSINESS DIRECTOR, GAURAV 724.3 Sciatica 07/27/2010 YADIRA DAN, RAIN 724.3 Sciatica 07/27/2010 YADIRA DAN, RAIN 724.3 Sciatica 07/27/2010 DEMETRA NATIONAL BUSINESS DIRECTOR, GAURAV 724.3 Sciatica 07/27/2010 DEMETRA NATIONAL BUSINESS DIRECTOR, GAURAV 724.3 Sciatica 08/12/2010 Ot 250.00 DIAB BHUMI WO COMPL, TYPE II OR UNSPEC TY 08/12/2010 Ot 682.6 CELLULITIS OF LEG 08/12/2010 Ot 729.5 PAIN IN LIMB 08/12/2010 Ot V12.51 HX-VENOUS THROMBOSIS EMBOLISM 08/12/2010 Ot V58.61 ANTICOAGULANTS,LT,CURRENT USE 08/12/2010 Ot V58.69 OTH MED,LT,CURRENT USE 09/06/2010 Ot 250.00 DIAB BHUMI WO COMPL, TYPE II OR UNSPEC TY 09/06/2010 Ot 296.80 BIPOLAR DISORDER, UNSPECIFIED 09/06/2010 Ot 401.9 HYPERTENSION NOS 09/06/2010 Ot 729.81 SWELLING OF LIMB 09/06/2010 Ot V12.51 HX-VENOUS THROMBOSIS EMBOLISM 12/07/2010 RAIN MAY MD 599.0 Urinary Tract Infection Site Not Specified 12/07/2010 RAIN MAY MD 599.0 Urinary Tract Infection Site Not Specified 12/07/2010 599.0 Urinary Tract Infection Site Not Specified 12/07/2010 RAIN MAY MD 599.0 Urinary Tract Infection Site Not Specified 12/07/2010 RAIN MAY MD 599.0 Urinary Tract Infection Site Not Specified 12/07/2010 599.0 Urinary Tract Infection Site Not Specified 12/07/2010 CHANDRA HINTON DO 599.0 Urinary Tract Infection Site Not Specified 12/07/2010 599.0 Urinary Tract Infection Site Not Specified 12/07/2010 JOSE A DDS, SEGUNDO F 599.0 Urinary Tract Infection Site Not Specified 12/07/2010 RAIN MAY MD 599.0 Urinary Tract Infection Site Not Specified 12/07/2010 599.0 Urinary Tract Infection Site Not Specified 12/07/2010 599.0 Urinary Tract Infection Site Not Specified 12/07/2010 599.0 Urinary Tract Infection Site Not Specified 12/07/2010 599.0 Urinary Tract Infection Site Not Specified 12/07/2010 599.0 Urinary Tract Infection Site Not Specified 12/07/2010 599.0 Urinary Tract Infection Site Not Specified 12/07/2010 599.0 Urinary Tract Infection Site Not Specified 12/07/2010 599.0 Urinary Tract Infection Site Not Specified 12/07/2010 599.0 Urinary Tract Infection Site Not Specified 12/07/2010 599.0 Urinary Tract Infection Site Not Specified 12/07/2010 599.0 Urinary Tract Infection Site Not Specified 12/07/2010 KAILEE CARBONE NATIONAL BUSINESS DIRECTOR, HEAVEN N 599.0 Urinary Tract Infection Site Not Specified 12/07/2010 KAILEE CARBONE NATIONAL BUSINESS DIRECTOR, HEAVEN N 599.0 Urinary Tract Infection Site Not Specified 12/07/2010 RAIN MAY MD 599.0 Urinary Tract Infection Site Not Specified 12/07/2010 RAIN MAY MD 599.0 Urinary Tract Infection Site Not Specified 12/07/2010 RAIN MAY MD 599.0 Urinary Tract Infection Site Not Specified 12/07/2010 RAIN MAY MD 599.0 Urinary Tract Infection Site Not Specified 12/07/2010 RODNEY LANDIN APRN 599.0 Urinary Tract Infection Site Not Specified 12/07/2010 PERICO BARBOUR, ADELINA Diaz 599.0 Urinary Tract Infection Site Not Specified 12/07/2010 RAIN MAY MD 599.0 Urinary Tract Infection Site Not Specified 12/07/2010 RAIN MAY MD 599.0 Urinary Tract Infection Site Not Specified 12/07/2010 RAIN MAY MD 599.0 Urinary Tract Infection Site Not Specified 12/07/2010 RAIN MAY MD 599.0 Urinary Tract Infection Site Not Specified 12/07/2010 MARTIN BARBOUR, ELDER Sims 599.0 Urinary Tract Infection Site Not Specified 12/07/2010 RAIN MAY MD 599.0 Urinary Tract Infection Site Not Specified 12/07/2010 RAIN MAY MD 599.0 Urinary Tract Infection Site Not Specified 12/07/2010 RAIN MAY MD 599.0 Urinary Tract Infection Site Not Specified 12/07/2010 MARTIN BARBOUR, ELDER Sims 599.0 Urinary Tract Infection Site Not Specified 12/07/2010 RAIN MAY MD 599.0 Urinary Tract Infection Site Not Specified 12/07/2010 599.0 Urinary Tract Infection Site Not Specified 12/07/2010 RAIN MAY MD 599.0 Urinary Tract Infection Site Not Specified 12/07/2010 DWAIN BARBOUR, JAHAIRA 599.0 Urinary Tract Infection Site Not Specified 12/07/2010 RAIN MAY MD 599.0 Urinary Tract Infection Site Not Specified 12/07/2010 JOSUÉ CANELA LUIS WHEELER 599.0 Urinary Tract Infection Site Not Specified 12/07/2010 MARTIN BARBOUR, ELDER Sims 599.0 Urinary Tract Infection Site Not Specified 12/07/2010 RAIN MAY MD 599.0 Urinary Tract Infection Site Not Specified 12/07/2010 RAIN MAY MD 599.0 Urinary Tract Infection Site Not Specified 12/07/2010 RAIN MAY MD 599.0 Urinary Tract Infection Site Not Specified 12/07/2010 RAIN MAY MD 599.0 Urinary Tract Infection Site Not Specified 12/07/2010 RAIN MAY MD 599.0 Urinary Tract Infection Site Not Specified 12/07/2010 GAURAV MCCRARY APRN 599.0 Urinary Tract Infection Site Not Specified 12/07/2010 RAIN MAY MD 599.0 Urinary Tract Infection Site Not Specified 12/07/2010 RAIN MAY MD 599.0 Urinary Tract Infection Site Not Specified 12/07/2010 EDMETRA NATIONAL BUSINESS DIRECTORGAURAV Cruz 599.0 Urinary Tract Infection Site Not Specified 12/07/2010 GAURAV MCCRARY APRN 599.0 Urinary Tract Infection Site Not Specified 12/25/2010 RAIN MAY MD 788.30 Incontinence/enuresis Nos 12/25/2010 RAIN MAY MD 788.30 Incontinence/enuresis Nos 12/25/2010 788.30 Incontinence/enuresis Nos 12/25/2010 RAIN MAY MD 788.30 Incontinence/enuresis Nos 12/25/2010 RAIN MAY MD 788.30 Incontinence/enuresis Nos 12/25/2010 788.30 Incontinence/enuresis Nos 12/25/2010 JAMAAL OVERTON CHANDRA Barbosa 788.30 Incontinence/enuresis Nos 12/25/2010 788.30 Incontinence/enuresis Nos 12/25/2010 JOSE A BARBOUR, SEGUNDO Choi 788.30 Incontinence/enuresis Nos 12/25/2010 RAIN MAY MD 788.30 Incontinence/enuresis Nos 12/25/2010 788.30 Incontinence/enuresis Nos 12/25/2010 788.30 Incontinence/enuresis Nos 12/25/2010 788.30 Incontinence/enuresis Nos 12/25/2010 788.30 Incontinence/enuresis Nos 12/25/2010 788.30 Incontinence/enuresis Nos 12/25/2010 788.30 Incontinence/enuresis Nos 12/25/2010 788.30 Incontinence/enuresis Nos 12/25/2010 788.30 Incontinence/enuresis Nos 12/25/2010 788.30 Incontinence/enuresis Nos 12/25/2010 788.30 Incontinence/enuresis Nos 12/25/2010 788.30 Incontinence/enuresis Nos 12/25/2010 HEAVEN SCHAEFFER APRN N 788.30 Incontinence/enuresis Nos 12/25/2010 HEAVEN SCHAEFFER APRN N 788.30 Incontinence/enuresis Nos 12/25/2010 RAIN MAY MD 788.30 Incontinence/enuresis Nos 12/25/2010 RAIN MAY MD 788.30 Incontinence/enuresis Nos 12/25/2010 RAIN MAY MD 788.30 Incontinence/enuresis Nos 12/25/2010 RAIN MAY MD 788.30 Incontinence/enuresis Nos 12/25/2010 RODNEY LANDIN APRN 788.30 Incontinence/enuresis Nos 12/25/2010 PERICO BARBOUR, ADELINA Diaz 788.30 Incontinence/enuresis Nos 12/25/2010 RAIN MAY MD 788.30 Incontinence/enuresis Nos 12/25/2010 RAIN MAY MD 788.30 Incontinence/enuresis Nos 12/25/2010 RAIN MAY MD 788.30 Incontinence/enuresis Nos 12/25/2010 YADIRA DAN, RAIN 788.30 Incontinence/enuresis Nos 12/25/2010 MARTIN DDS, ELDER Sims 788.30 Incontinence/enuresis Nos 12/25/2010 YADIRA DAN, RAIN 788.30 Incontinence/enuresis Nos 12/25/2010 YADIRA DAN, RAIN 788.30 Incontinence/enuresis Nos 12/25/2010 YADIRA DAN, RAIN 788.30 Incontinence/enuresis Nos 12/25/2010 MARTIN DDS, ELDER Sims 788.30 Incontinence/enuresis Nos 12/25/2010 YADIRA DAN, RAIN 788.30 Incontinence/enuresis Nos 12/25/2010 788.30 Incontinence/enuresis Nos 12/25/2010 YADIRA DAN, RAIN 788.30 Incontinence/enuresis Nos 12/25/2010 DWAIN BARBOUR, JAHAIRA 788.30 Incontinence/enuresis Nos 12/25/2010 RAIN MAY MD 788.30 Incontinence/enuresis Nos 12/25/2010 JOSUÉ CANELA, LUIS WHEELER 788.30 Incontinence/enuresis Nos 12/25/2010 MARTIN RAMIRESS, ELDER Sims 788.30 Incontinence/enuresis Nos 12/25/2010 YADIRA DAN, RAIN 788.30 Incontinence/enuresis Nos 12/25/2010 YADIRA DAN, RAIN 788.30 Incontinence/enuresis Nos 12/25/2010 RAIN MAY MD 788.30 Incontinence/enuresis Nos 12/25/2010 RAIN MAY MD 788.30 Incontinence/enuresis Nos 12/25/2010 RAIN MAY MD 788.30 Incontinence/enuresis Nos 12/25/2010 DEMETRA CANELA, GAURAV 788.30 Incontinence/enuresis Nos 12/25/2010 RAIN MAY MD8.30 Incontinence/enuresis Nos 12/25/2010 RAIN MAY MD 788.30 Incontinence/enuresis Nos 12/25/2010 DEMETRA NATIONAL BUSINESS DIRECTOR, GAURAV 788.30 Incontinence/enuresis Nos 12/25/2010 DEMETRA CANELA, GAURAV 788.30 Incontinence/enuresis Nos 02/07/2011 Ot 729.5 PAIN IN LIMB 02/07/2011 Ot 916.0 ABRASION HIP LEG 02/07/2011 Ot E000.8 OTHER EXTERNAL CAUSE STATUS 02/07/2011 Ot E001.0 ACTIVITIES INVOLVING WALKING, MARCHING A 02/07/2011 Ot E928.8 ACCIDENT NEC 04/16/2011 RAIN MAY MD 465.9 Acute Upper Respiratory Infections Of Unspecified Site 04/16/2011 RAIN MAY MD 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 04/16/2011 RAIN MAY MD 465.9 Acute Upper Respiratory Infections Of Unspecified Site 04/16/2011 RAIN MAY MD 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 04/16/2011 465.9 Acute Upper Respiratory Infections Of Unspecified Site 04/16/2011 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 04/16/2011 RAIN MAY MD 465.9 Acute Upper Respiratory Infections Of Unspecified Site 04/16/2011 RAIN MAY MD 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 04/16/2011 RAIN MAY MD 465.9 Acute Upper Respiratory Infections Of Unspecified Site 04/16/2011 RAIN MAY MD 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 04/16/2011 465.9 Acute Upper Respiratory Infections Of Unspecified Site 04/16/2011 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 04/16/2011 CHANDRA HINTON DO 465.9 Acute Upper Respiratory Infections Of Unspecified Site 04/16/2011 CHANDRA HINTON DO 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 04/16/2011 465.9 Acute Upper Respiratory Infections Of Unspecified Site 04/16/2011 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 04/16/2011 SEGUNDO NARANJO DDS 465.9 Acute Upper Respiratory Infections Of Unspecified Site 04/16/2011 SEGUNDO NARANJO DDS 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 04/16/2011 RAIN MAY MD 465.9 Acute Upper Respiratory Infections Of Unspecified Site 04/16/2011 RAIN MAY MD 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 04/16/2011 465.9 Acute Upper Respiratory Infections Of Unspecified Site 04/16/2011 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 04/16/2011 465.9 Acute Upper Respiratory Infections Of Unspecified Site 04/16/2011 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 04/16/2011 465.9 Acute Upper Respiratory Infections Of Unspecified Site 04/16/2011 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 04/16/2011 465.9 Acute Upper Respiratory Infections Of Unspecified Site 04/16/2011 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 04/16/2011 465.9 Acute Upper Respiratory Infections Of Unspecified Site 04/16/2011 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 04/16/2011 465.9 Acute Upper Respiratory Infections Of Unspecified Site 04/16/2011 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 04/16/2011 465.9 Acute Upper Respiratory Infections Of Unspecified Site 04/16/2011 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 04/16/2011 465.9 Acute Upper Respiratory Infections Of Unspecified Site 04/16/2011 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 04/16/2011 465.9 Acute Upper Respiratory Infections Of Unspecified Site 04/16/2011 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 04/16/2011 465.9 Acute Upper Respiratory Infections Of Unspecified Site 04/16/2011 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 04/16/2011 465.9 Acute Upper Respiratory Infections Of Unspecified Site 04/16/2011 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 04/16/2011 KAILEE CARBONE APRN HEAVEN N 465.9 Acute Upper Respiratory Infections Of Unspecified Site 04/16/2011 DUGANSPENSER CARBONE NATIONAL BUSINESS DIRECTOR, HEAVEN N 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 04/16/2011 KAILEE CARBONE APRN, HEAVEN N 465.9 Acute Upper Respiratory Infections Of Unspecified Site 04/16/2011 KAILEE CARBONE APRN, HEAVEN N 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 04/16/2011 RAIN MAY MD 465.9 Acute Upper Respiratory Infections Of Unspecified Site 04/16/2011 RAIN MAY MD 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 04/16/2011 RAIN MAY MD 465.9 Acute Upper Respiratory Infections Of Unspecified Site 04/16/2011 RAIN MAY MD2.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 04/16/2011 RAIN MAY MD 465.9 Acute Upper Respiratory Infections Of Unspecified Site 04/16/2011 RAIN MAY MD2.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 04/16/2011 RAIN MAY MD 465.9 Acute Upper Respiratory Infections Of Unspecified Site 04/16/2011 RAIN MAY MD2.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 04/16/2011 MUSHTAQ NATIONAL BUSINESS DIRECTOR, RODNEY S 465.9 Acute Upper Respiratory Infections Of Unspecified Site 04/16/2011 MUSHTAQ NATIONAL BUSINESS DIRECTOR, RODNEY S 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 04/16/2011 ADELINA RIVER DDS 465.9 Acute Upper Respiratory Infections Of Unspecified Site 04/16/2011 ADELINA RIVER DDS 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 04/16/2011 RAIN MAY MD 465.9 Acute Upper Respiratory Infections Of Unspecified Site 04/16/2011 RAIN MAY MD2.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 04/16/2011 RAIN MAY MD 465.9 Acute Upper Respiratory Infections Of Unspecified Site 04/16/2011 RAIN MAY MD2.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 04/16/2011 RAIN MAY MD 465.9 Acute Upper Respiratory Infections Of Unspecified Site 04/16/2011 RAIN MAY MD2.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 04/16/2011 RAIN MAY MD 465.9 Acute Upper Respiratory Infections Of Unspecified Site 04/16/2011 RAIN MAY MD2.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 04/16/2011 ELDER SALAZAR DDS 465.9 Acute Upper Respiratory Infections Of Unspecified Site 04/16/2011 ELDER SALAZAR DDS 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 04/16/2011 RAIN MAY MD 465.9 Acute Upper Respiratory Infections Of Unspecified Site 04/16/2011 RAIN MAY MD2.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 04/16/2011 RAIN MAY MD 465.9 Acute Upper Respiratory Infections Of Unspecified Site 04/16/2011 RAIN MAY MD 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 04/16/2011 RAIN MAY MD 465.9 Acute Upper Respiratory Infections Of Unspecified Site 04/16/2011 RAIN MAY MD 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 04/16/2011 ELDER SALAZAR DDS 465.9 Acute Upper Respiratory Infections Of Unspecified Site 04/16/2011 ELDER SALAZAR DDS 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 04/16/2011 RAIN MAY MD 465.9 Acute Upper Respiratory Infections Of Unspecified Site 04/16/2011 RAIN MAY MD2.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 04/16/2011 465.9 Acute Upper Respiratory Infections Of Unspecified Site 04/16/2011 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 04/16/2011 RAIN MAY MD 465.9 Acute Upper Respiratory Infections Of Unspecified Site 04/16/2011 RAIN MAY MD2.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 04/16/2011 JAHAIRA PRAKASH DDS 465.9 Acute Upper Respiratory Infections Of Unspecified Site 04/16/2011 JAHAIRA PRAKASH DDS 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 04/16/2011 RAIN MAY MD 465.9 Acute Upper Respiratory Infections Of Unspecified Site 04/16/2011 RAIN MAY MD 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 04/16/2011 LUIS MOSES APRN 465.9 Acute Upper Respiratory Infections Of Unspecified Site 04/16/2011 LUIS MOSES APRN 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 04/16/2011 ELDER SALAZAR DDS 465.9 Acute Upper Respiratory Infections Of Unspecified Site 04/16/2011 ELDER SALAZAR DDS 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 04/16/2011 RAIN MAY MD 465.9 Acute Upper Respiratory Infections Of Unspecified Site 04/16/2011 RAIN MAY MD 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 04/16/2011 RAIN MAY MD 465.9 Acute Upper Respiratory Infections Of Unspecified Site 04/16/2011 RAIN MAY MD 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 04/16/2011 RAIN MAY MD 465.9 Acute Upper Respiratory Infections Of Unspecified Site 04/16/2011 RAIN MAY MD 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 04/16/2011 RAIN MAY MD 465.9 Acute Upper Respiratory Infections Of Unspecified Site 04/16/2011 RAIN MAY MD 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 04/16/2011 RAIN MAY MD 465.9 Acute Upper Respiratory Infections Of Unspecified Site 04/16/2011 RAIN MAY MD 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 04/16/2011 CLARISA MCCRARY APRNETTE 465.9 Acute Upper Respiratory Infections Of Unspecified Site 04/16/2011 DEMETRA CANELA GAURAV 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 04/16/2011 RAIN MAY MD 465.9 Acute Upper Respiratory Infections Of Unspecified Site 04/16/2011 RAIN MAY MD 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 04/16/2011 RAIN MAY MD 465.9 Acute Upper Respiratory Infections Of Unspecified Site 04/16/2011 RAIN MAY MD 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 04/16/2011 DEMETRA NATIONAL BUSINESS DIRECTOR, GAURAV 465.9 Acute Upper Respiratory Infections Of Unspecified Site 04/16/2011 DEMETRA CANELA GAURAV 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 04/16/2011 DEMETRA CANELA GAURAV 465.9 Acute Upper Respiratory Infections Of Unspecified Site 04/16/2011 DEMETRA NATIONAL BUSINESS DIRECTOR, GAURAV 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 05/19/2011 Ot 459.81 VENOUS INSUFFICIENCY NOS 05/19/2011 Ot 729.5 PAIN IN LIMB 06/21/2011 RAIN MAY MD 296.80 MO BIPOLAR NOS 06/21/2011 RAIN MAY MD 314.00 ADHD INATTENTIVE 06/21/2011 RAIN MAY MD 296.80 MO BIPOLAR NOS 06/21/2011 RAIN MAY MD 314.00 ADHD INATTENTIVE 06/21/2011 296.80 MO BIPOLAR NOS 06/21/2011 314.00 ADHD INATTENTIVE 06/21/2011 RAIN MAY MD 296.80 MO BIPOLAR NOS 06/21/2011 RAIN MAY MD 314.00 ADHD INATTENTIVE 06/21/2011 RAIN MAY MD 296.80 MO BIPOLAR NOS 06/21/2011 RAIN MAY MD 314.00 ADHD INATTENTIVE 06/21/2011 296.80 MO BIPOLAR NOS 06/21/2011 314.00 ADHD INATTENTIVE 06/21/2011 HINTON CHANDRA OVERTON K 296.80 MO BIPOLAR NOS 06/21/2011 HINTON DOCHANDRA K 314.00 ADHD INATTENTIVE 06/21/2011 296.80 MO BIPOLAR NOS 06/21/2011 314.00 ADHD INATTENTIVE 06/21/2011 SEGUNDO NARANJO DDS F 296.80 MO BIPOLAR NOS 06/21/2011 SEGUNDO NARANJO DDS F 314.00 ADHD INATTENTIVE 06/21/2011 RAIN MAY MD 296.80 MO BIPOLAR NOS 06/21/2011 RAIN MAY MD 314.00 ADHD INATTENTIVE 06/21/2011 296.80 MO BIPOLAR NOS 06/21/2011 314.00 ADHD INATTENTIVE 06/21/2011 296.80 MO BIPOLAR NOS 06/21/2011 314.00 ADHD INATTENTIVE 06/21/2011 296.80 MO BIPOLAR NOS 06/21/2011 314.00 ADHD INATTENTIVE 06/21/2011 296.80 MO BIPOLAR NOS 06/21/2011 314.00 ADHD INATTENTIVE 06/21/2011 296.80 MO BIPOLAR NOS 06/21/2011 314.00 ADHD INATTENTIVE 06/21/2011 296.80 MO BIPOLAR NOS 06/21/2011 314.00 ADHD INATTENTIVE 06/21/2011 296.80 MO BIPOLAR NOS 06/21/2011 314.00 ADHD INATTENTIVE 06/21/2011 296.80 MO BIPOLAR NOS 06/21/2011 314.00 ADHD INATTENTIVE 06/21/2011 296.80 MO BIPOLAR NOS 06/21/2011 314.00 ADHD INATTENTIVE 06/21/2011 296.80 MO BIPOLAR NOS 06/21/2011 314.00 ADHD INATTENTIVE 06/21/2011 296.80 MO BIPOLAR NOS 06/21/2011 314.00 ADHD INATTENTIVE 06/21/2011 HEAVEN SCHAEFFER APRN 296.80 MO BIPOLAR NOS 06/21/2011 KAILEE CARBONE APRN, HEAVEN N 314.00 ADHD INATTENTIVE 06/21/2011 KAILEE CARBONE APRN, HEAVEN N 296.80 MO BIPOLAR NOS 06/21/2011 KAILEE CARBONE APRN, HEAVEN N 314.00 ADHD INATTENTIVE 06/21/2011 YADIRA DAN, RAIN 296.80 MO BIPOLAR NOS 06/21/2011 YADIRA DAN, RAIN 314.00 ADHD INATTENTIVE 06/21/2011 YADIRA DAN, RAIN 296.80 MO BIPOLAR NOS 06/21/2011 YADIRA DAN, RAIN 314.00 ADHD INATTENTIVE 06/21/2011 YADIRA DAN, RAIN 296.80 MO BIPOLAR NOS 06/21/2011 YADIRA DAN, RAIN 314.00 ADHD INATTENTIVE 06/21/2011 YADIRA DAN, RAIN 296.80 MO BIPOLAR NOS 06/21/2011 YADIRA DAN, RAIN 314.00 ADHD INATTENTIVE 06/21/2011 RODNEY LANDIN APRN S 296.80 MO BIPOLAR NOS 06/21/2011 FÉLIX LANDIN APRNA S 314.00 ADHD INATTENTIVE 06/21/2011 ADELINA RIVER DDS 296.80 MO BIPOLAR NOS 06/21/2011 PERICO BARBOUR, ADELINA M 314.00 ADHD INATTENTIVE 06/21/2011 YADIRA DAN, RAIN 296.80 MO BIPOLAR NOS 06/21/2011 YADIRA DAN, RAIN 314.00 ADHD INATTENTIVE 06/21/2011 YADIRA DAN, RAIN 296.80 MO BIPOLAR NOS 06/21/2011 YADIRA DAN, RAIN 314.00 ADHD INATTENTIVE 06/21/2011 YADIRA DAN, RAIN 296.80 MO BIPOLAR NOS 06/21/2011 YADIRA DAN, RAIN 314.00 ADHD INATTENTIVE 06/21/2011 YADIRA DAN, RAIN 296.80 MO BIPOLAR NOS 06/21/2011 YADIRA DAN, RAIN 314.00 ADHD INATTENTIVE 06/21/2011 ELDER SALAZAR DDS J 296.80 MO BIPOLAR NOS 06/21/2011 ELDER SALAZAR DDS 314.00 ADHD INATTENTIVE 06/21/2011 YADIRA DAN, RAIN 296.80 MO BIPOLAR NOS 06/21/2011 YADIRA DAN, RAIN 314.00 ADHD INATTENTIVE 06/21/2011 YADIRA ADN, RAIN 296.80 MO BIPOLAR NOS 06/21/2011 YADIRA DAN, RAIN 314.00 ADHD INATTENTIVE 06/21/2011 YADIRA DAN, RAIN 296.80 MO BIPOLAR NOS 06/21/2011 YADIRA DAN, RAIN 314.00 ADHD INATTENTIVE 06/21/2011 WHITE DDS, ELDER J 296.80 MO BIPOLAR NOS 06/21/2011 WHITE DDS, ELDER J 314.00 ADHD INATTENTIVE 06/21/2011 YADIRA DAN, RAIN 296.80 MO BIPOLAR NOS 06/21/2011 YADIRA DAN, RAIN 314.00 ADHD INATTENTIVE 06/21/2011 296.80 MO BIPOLAR NOS 06/21/2011 314.00 ADHD INATTENTIVE 06/21/2011 YADIRA DAN, RAIN 296.80 MO BIPOLAR NOS 06/21/2011 YADIRA DAN, RAIN 314.00 ADHD INATTENTIVE 06/21/2011 PRAKASH DDS, JAHAIRA 296.80 MO BIPOLAR NOS 06/21/2011 PRAKASH DDS, JAHAIRA 314.00 ADHD INATTENTIVE 06/21/2011 YADIRA DAN, RAIN 296.80 MO BIPOLAR NOS 06/21/2011 YADIRA DAN, RAIN 314.00 ADHD INATTENTIVE 06/21/2011 JOSUÉ CANELA, LUIS TAYLORH 296.80 MO BIPOLAR NOS 06/21/2011 JOSUÉ CANELA LUIS WHEELER 314.00 ADHD INATTENTIVE 06/21/2011 MARTIN DDS, ELDER J 296.80 MO BIPOLAR NOS 06/21/2011 WHITE DDS, ELDER J 314.00 ADHD INATTENTIVE 06/21/2011 YADIRA DAN, RAIN 296.80 MO BIPOLAR NOS 06/21/2011 YADIRA DAN, RAIN 314.00 ADHD INATTENTIVE 06/21/2011 YADIRA DAN, RAIN 296.80 MO BIPOLAR NOS 06/21/2011 YADIRA DAN, RAIN 314.00 ADHD INATTENTIVE 06/21/2011 YADIRA DAN, RAIN 296.80 MO BIPOLAR NOS 06/21/2011 YADIRA DAN, RAIN 314.00 ADHD INATTENTIVE 06/21/2011 YADIRA DAN, RAIN 296.80 MO BIPOLAR NOS 06/21/2011 YADIRA DAN, RAIN 314.00 ADHD INATTENTIVE 06/21/2011 YADIRA DAN, RAIN 296.80 MO BIPOLAR NOS 06/21/2011 YADIRA DAN, RAIN 314.00 ADHD INATTENTIVE 06/21/2011 DEMETRA NATIONAL BUSINESS DIRECTOR, GAURAV 296.80 MO BIPOLAR NOS 06/21/2011 DEMETRA NATIONAL BUSINESS DIRECTOR, GAURAV 314.00 ADHD INATTENTIVE 06/21/2011 RAIN MAY MD 296.80 MO BIPOLAR NOS 06/21/2011 RAIN MAY MD 314.00 ADHD INATTENTIVE 06/21/2011 RAIN MAY MD 296.80 MO BIPOLAR NOS 06/21/2011 RAIN MAY MD 314.00 ADHD INATTENTIVE 06/21/2011 DEMETRA NATIONAL BUSINESS DIRECTOR, GAURAV 296.80 MO BIPOLAR NOS 06/21/2011 DEMETRA NATIONAL BUSINESS DIRECTOR, GAURAV 314.00 ADHD INATTENTIVE 06/21/2011 DEMETRA NATIONAL BUSINESS DIRECTOR, GAURAV 296.80 MO BIPOLAR NOS 06/21/2011 DEMETRA NATIONAL BUSINESS DIRECTOR, GAURAV 314.00 ADHD INATTENTIVE 07/03/2011 RAIN MAY MD 457.1 Other Lymphedema 07/03/2011 RAIN MAY MD 457.1 Other Lymphedema 07/03/2011 457.1 Other Lymphedema 07/03/2011 RAIN MAY MD 457.1 Other Lymphedema 07/03/2011 RAIN MAY MD 457.1 Other Lymphedema 07/03/2011 457.1 Other Lymphedema 07/03/2011 CHANDRA HINTON DO 457.1 Other Lymphedema 07/03/2011 457.1 Other Lymphedema 07/03/2011 JOSE A BARBOUR, SEGUNDO Choi 457.1 Other Lymphedema 07/03/2011 RAIN MAY MD 457.1 Other Lymphedema 07/03/2011 457.1 Other Lymphedema 07/03/2011 457.1 Other Lymphedema 07/03/2011 457.1 Other Lymphedema 07/03/2011 457.1 Other Lymphedema 07/03/2011 457.1 Other Lymphedema 07/03/2011 457.1 Other Lymphedema 07/03/2011 457.1 Other Lymphedema 07/03/2011 457.1 Other Lymphedema 07/03/2011 457.1 Other Lymphedema 07/03/2011 457.1 Other Lymphedema 07/03/2011 457.1 Other Lymphedema 07/03/2011 HEAVEN SCHAEFFER APRN 457.1 Other Lymphedema 07/03/2011 HEAVEN SCHAEFFER APRN 457.1 Other Lymphedema 07/03/2011 RAIN MAY MD 457.1 Other Lymphedema 07/03/2011 RAIN MAY MD 457.1 Other Lymphedema 07/03/2011 RAIN MAY MD 457.1 Other Lymphedema 07/03/2011 RAIN MAY MD 457.1 Other Lymphedema 07/03/2011 RODNEY LANDIN APRN 457.1 Other Lymphedema 07/03/2011 ADELINA RIVER DDS 457.1 Other Lymphedema 07/03/2011 RAIN MAY MD 457.1 Other Lymphedema 07/03/2011 RAIN MAY MD 457.1 Other Lymphedema 07/03/2011 RAIN MAY MD 457.1 Other Lymphedema 07/03/2011 RAIN MAY MD 457.1 Other Lymphedema 07/03/2011 ELDER SALAZAR DDS 457.1 Other Lymphedema 07/03/2011 RAIN MAY MD 457.1 Other Lymphedema 07/03/2011 RAIN MAY MD 457.1 Other Lymphedema 07/03/2011 RAIN MAY MD 457.1 Other Lymphedema 07/03/2011 ELDER SALAZAR DDS 457.1 Other Lymphedema 07/03/2011 RAIN MAY MD 457.1 Other Lymphedema 07/03/2011 457.1 Other Lymphedema 07/03/2011 RAIN MAY MD 457.1 Other Lymphedema 07/03/2011 JAHAIRA PRAKASH DDS 457.1 Other Lymphedema 07/03/2011 RAIN MAY MD 457.1 Other Lymphedema 07/03/2011 LUIS MOSES APRN 457.1 Other Lymphedema 07/03/2011 ELDER SALAZAR DDS 457.1 Other Lymphedema 07/03/2011 RAIN MAY MD 457.1 Other Lymphedema 07/03/2011 RAIN MAY MD 457.1 Other Lymphedema 07/03/2011 RAIN MAY MD 457.1 Other Lymphedema 07/03/2011 RAIN MAY MD 457.1 Other Lymphedema 07/03/2011 RAIN MAY MD 457.1 Other Lymphedema 07/03/2011 GAURAV MCCRARY APRN 457.1 Other Lymphedema 07/03/2011 RAIN MAY MD 457.1 Other Lymphedema 07/03/2011 RAIN MAY MD 457.1 Other Lymphedema 07/03/2011 GAURAV MCCRARY APRN 457.1 Other Lymphedema 07/03/2011 GAURAV MCCRARY APRN 457.1 Other Lymphedema 07/05/2011 RAIN MAY MD 686.9 Unspecified Local Infection Of Skin And Subcutaneous Tissue 07/05/2011 RAIN MAY MD 686.9 Unspecified Local Infection Of Skin And Subcutaneous Tissue 07/05/2011 686.9 Unspecified Local Infection Of Skin And Subcutaneous Tissue 07/05/2011 RAIN MAY MD 686.9 Unspecified Local Infection Of Skin And Subcutaneous Tissue 07/05/2011 RAIN MAY MD 686.9 Unspecified Local Infection Of Skin And Subcutaneous Tissue 07/05/2011 686.9 Unspecified Local Infection Of Skin And Subcutaneous Tissue 07/05/2011 CHANDRA HINTON DO 686.9 Unspecified Local Infection Of Skin And Subcutaneous Tissue 07/05/2011 686.9 Unspecified Local Infection Of Skin And Subcutaneous Tissue 07/05/2011 SEGUNDO NARANJO DDS 686.9 Unspecified Local Infection Of Skin And Subcutaneous Tissue 07/05/2011 RAIN MAY MD 686.9 Unspecified Local Infection Of Skin And Subcutaneous Tissue 07/05/2011 686.9 Unspecified Local Infection Of Skin And Subcutaneous Tissue 07/05/2011 686.9 Unspecified Local Infection Of Skin And Subcutaneous Tissue 07/05/2011 686.9 Unspecified Local Infection Of Skin And Subcutaneous Tissue 07/05/2011 686.9 Unspecified Local Infection Of Skin And Subcutaneous Tissue 07/05/2011 686.9 Unspecified Local Infection Of Skin And Subcutaneous Tissue 07/05/2011 686.9 Unspecified Local Infection Of Skin And Subcutaneous Tissue 07/05/2011 686.9 Unspecified Local Infection Of Skin And Subcutaneous Tissue 07/05/2011 686.9 Unspecified Local Infection Of Skin And Subcutaneous Tissue 07/05/2011 686.9 Unspecified Local Infection Of Skin And Subcutaneous Tissue 07/05/2011 686.9 Unspecified Local Infection Of Skin And Subcutaneous Tissue 07/05/2011 686.9 Unspecified Local Infection Of Skin And Subcutaneous Tissue 07/05/2011 HEAVEN SCHAEFFER APRN 686.9 Unspecified Local Infection Of Skin And Subcutaneous Tissue 07/05/2011 TOBIAS SCHAEFFER APRNCY Anthony 686.9 Unspecified Local Infection Of Skin And Subcutaneous Tissue 07/05/2011 RAIN MAY MD 686.9 Unspecified Local Infection Of Skin And Subcutaneous Tissue 07/05/2011 RAIN MAY MD 686.9 Unspecified Local Infection Of Skin And Subcutaneous Tissue 07/05/2011 RAIN MAY MD 686.9 Unspecified Local Infection Of Skin And Subcutaneous Tissue 07/05/2011 RAIN MAY MD 686.9 Unspecified Local Infection Of Skin And Subcutaneous Tissue 07/05/2011 RODNEY LANDIN APRN 686.9 Unspecified Local Infection Of Skin And Subcutaneous Tissue 07/05/2011 ADELINA RIVER DDS 686.9 Unspecified Local Infection Of Skin And Subcutaneous Tissue 07/05/2011 RAIN MAY MD 686.9 Unspecified Local Infection Of Skin And Subcutaneous Tissue 07/05/2011 RAIN MAY MD 686.9 Unspecified Local Infection Of Skin And Subcutaneous Tissue 07/05/2011 RAIN MAY MD 686.9 Unspecified Local Infection Of Skin And Subcutaneous Tissue 07/05/2011 RAIN MAY MD 686.9 Unspecified Local Infection Of Skin And Subcutaneous Tissue 07/05/2011 ELDER SALAZAR DDS 686.9 Unspecified Local Infection Of Skin And Subcutaneous Tissue 07/05/2011 RAIN MAY MD 686.9 Unspecified Local Infection Of Skin And Subcutaneous Tissue 07/05/2011 RAIN MAY MD 686.9 Unspecified Local Infection Of Skin And Subcutaneous Tissue 07/05/2011 RAIN MAY MD 686.9 Unspecified Local Infection Of Skin And Subcutaneous Tissue 07/05/2011 ELDER SALAZAR DDS 686.9 Unspecified Local Infection Of Skin And Subcutaneous Tissue 07/05/2011 RAIN MAY MD 686.9 Unspecified Local Infection Of Skin And Subcutaneous Tissue 07/05/2011 686.9 Unspecified Local Infection Of Skin And Subcutaneous Tissue 07/05/2011 RAIN MAY MD 686.9 Unspecified Local Infection Of Skin And Subcutaneous Tissue 07/05/2011 JAHAIRA PRAKASH DDS 686.9 Unspecified Local Infection Of Skin And Subcutaneous Tissue 07/05/2011 RAIN MAY MD 686.9 Unspecified Local Infection Of Skin And Subcutaneous Tissue 07/05/2011 JOSUÉ CANELA LUIS WHEELER 686.9 Unspecified Local Infection Of Skin And Subcutaneous Tissue 07/05/2011 ELDER SALAZAR DDS 686.9 Unspecified Local Infection Of Skin And Subcutaneous Tissue 07/05/2011 RAIN MAY MD 686.9 Unspecified Local Infection Of Skin And Subcutaneous Tissue 07/05/2011 RAIN MAY MD 686.9 Unspecified Local Infection Of Skin And Subcutaneous Tissue 07/05/2011 RAIN MAY MD 686.9 Unspecified Local Infection Of Skin And Subcutaneous Tissue 07/05/2011 RAIN MAY MD 686.9 Unspecified Local Infection Of Skin And Subcutaneous Tissue 07/05/2011 RAIN MAY MD 686.9 Unspecified Local Infection Of Skin And Subcutaneous Tissue 07/05/2011 GAURAV MCCRARY APRN 686.9 Unspecified Local Infection Of Skin And Subcutaneous Tissue 07/05/2011 RAIN MAY MD 686.9 Unspecified Local Infection Of Skin And Subcutaneous Tissue 07/05/2011 RAIN MAY MD 686.9 Unspecified Local Infection Of Skin And Subcutaneous Tissue 07/05/2011 GAURAV MCCRARY APRN 686.9 Unspecified Local Infection Of Skin And Subcutaneous Tissue 07/05/2011 GAURAV MCCRARY APRN 686.9 Unspecified Local Infection Of Skin And Subcutaneous Tissue 07/07/2011 Ot 459.81 VENOUS INSUFFICIENCY NOS 07/07/2011 Ot 682.6 CELLULITIS OF LEG 07/07/2011 Ot 729.5 PAIN IN LIMB 07/08/2011 Ot 459.81 VENOUS INSUFFICIENCY NOS 07/08/2011 Ot 682.6 CELLULITIS OF LEG 07/08/2011 Ot 729.81 SWELLING OF LIMB 07/08/2011 Ot 782.3 EDEMA 10/02/2011 Ot 401.9 HYPERTENSION NOS 10/02/2011 Ot 599.0 URIN TRACT INFECTION NOS 10/02/2011 Ot 682.6 CELLULITIS OF LEG 10/02/2011 Ot 729.5 PAIN IN LIMB 10/02/2011 Ot 729.81 SWELLING OF LIMB 10/02/2011 Ot 786.05 SHORTNESS OF BREATH 10/02/2011 Ot V06.1 [id number], COMBINED [ 10/02/2011 Ot V12.51 HX-VENOUS THROMBOSIS EMBOLISM 10/04/2011 RAIN MAY MD 682.6 CELLULITIS AND ABSCESS OF LEG EXCEPT FOOT 10/04/2011 RAIN MAY MD 682.6 CELLULITIS AND ABSCESS OF LEG EXCEPT FOOT 10/04/2011 682.6 CELLULITIS AND ABSCESS OF LEG EXCEPT FOOT 10/04/2011 RAIN MAY MD 682.6 CELLULITIS AND ABSCESS OF LEG EXCEPT FOOT 10/04/2011 RAIN MAY MD 682.6 CELLULITIS AND ABSCESS OF LEG EXCEPT FOOT 10/04/2011 682.6 Cellulitis And Abscess Of Leg Except Foot 10/04/2011 CHANDRA HINTON DO 682.6 Cellulitis And Abscess Of Leg Except Foot 10/04/2011 682.6 Cellulitis And Abscess Of Leg Except Foot 10/04/2011 JOSE A RAMIRESS, SEGUNDO Choi 682.6 Cellulitis And Abscess Of Leg Except Foot 10/04/2011 RAIN MAY MD 682.6 Cellulitis And Abscess Of Leg Except Foot 10/04/2011 682.6 Cellulitis And Abscess Of Leg Except Foot 10/04/2011 682.6 Cellulitis And Abscess Of Leg Except Foot 10/04/2011 682.6 Cellulitis And Abscess Of Leg Except Foot 10/04/2011 682.6 Cellulitis And Abscess Of Leg Except Foot 10/04/2011 682.6 Cellulitis And Abscess Of Leg Except Foot 10/04/2011 682.6 Cellulitis And Abscess Of Leg Except Foot 10/04/2011 682.6 Cellulitis And Abscess Of Leg Except Foot 10/04/2011 682.6 Cellulitis And Abscess Of Leg Except Foot 10/04/2011 682.6 Cellulitis And Abscess Of Leg Except Foot 10/04/2011 682.6 Cellulitis And Abscess Of Leg Except Foot 10/04/2011 682.6 Cellulitis And Abscess Of Leg Except Foot 10/04/2011 HEAVEN SCHAEFFER APRN 682.6 Cellulitis And Abscess Of Leg Except Foot 10/04/2011 HEAEVN SCHAEFFER APRN N 682.6 Cellulitis And Abscess Of Leg Except Foot 10/04/2011 RAIN MAY MD 682.6 Cellulitis And Abscess Of Leg Except Foot 10/04/2011 RAIN MAY MD 682.6 Cellulitis And Abscess Of Leg Except Foot 10/04/2011 RAIN MAY MD 682.6 Cellulitis And Abscess Of Leg Except Foot 10/04/2011 RAIN MAY MD 682.6 Cellulitis And Abscess Of Leg Except Foot 10/04/2011 RODNEY LANDIN APRN 682.6 Cellulitis And Abscess Of Leg Except Foot 10/04/2011 ADELINA RIVER DDS 682.6 Cellulitis And Abscess Of Leg Except Foot 10/04/2011 RAIN MAY MD 682.6 Cellulitis And Abscess Of Leg Except Foot 10/04/2011 RAIN MAY MD 682.6 Cellulitis And Abscess Of Leg Except Foot 10/04/2011 RAIN MAY MD 682.6 Cellulitis And Abscess Of Leg Except Foot 10/04/2011 RAIN MAY MD 682.6 Cellulitis And Abscess Of Leg Except Foot 10/04/2011 ELDER SALAZAR DDS 682.6 Cellulitis And Abscess Of Leg Except Foot 10/04/2011 RAIN MAY MD 682.6 Cellulitis And Abscess Of Leg Except Foot 10/04/2011 RAIN MAY MD 682.6 Cellulitis And Abscess Of Leg Except Foot 10/04/2011 RAIN MAY MD 682.6 Cellulitis And Abscess Of Leg Except Foot 10/04/2011 ELDER SALAZAR DDS 682.6 Cellulitis And Abscess Of Leg Except Foot 10/04/2011 RAIN MAY MD 682.6 Cellulitis And Abscess Of Leg Except Foot 10/04/2011 682.6 Cellulitis And Abscess Of Leg Except Foot 10/04/2011 RAIN MAY MD 682.6 Cellulitis And Abscess Of Leg Except Foot 10/04/2011 JAHAIRA PRAKASH DDS 682.6 Cellulitis And Abscess Of Leg Except Foot 10/04/2011 RAIN MAY MD 682.6 Cellulitis And Abscess Of Leg Except Foot 10/04/2011 LUIS MOSES APRN 682.6 Cellulitis And Abscess Of Leg Except Foot 10/04/2011 MARTIN BARBOUR, ELDER Sims 682.6 Cellulitis And Abscess Of Leg Except Foot 10/04/2011 RAIN MAY MD 682.6 Cellulitis And Abscess Of Leg Except Foot 10/04/2011 RAIN MAY MD 682.6 Cellulitis And Abscess Of Leg Except Foot 10/04/2011 RAIN MAY MD 682.6 Cellulitis And Abscess Of Leg Except Foot 10/04/2011 RAIN MAY MD 682.6 Cellulitis And Abscess Of Leg Except Foot 10/04/2011 RAIN MAY MD 682.6 Cellulitis And Abscess Of Leg Except Foot 10/04/2011 GAURAV MCCRARY APRN 682.6 Cellulitis And Abscess Of Leg Except Foot 10/04/2011 RAIN MAY MD 682.6 Cellulitis And Abscess Of Leg Except Foot 10/04/2011 RAIN MAY MD 682.6 Cellulitis And Abscess Of Leg Except Foot 10/04/2011 GAURAV MCCRARY APRN 682.6 Cellulitis And Abscess Of Leg Except Foot 10/04/2011 GAURAV MCCRARY APRN 682.6 Cellulitis And Abscess Of Leg Except Foot 12/05/2011 RAIN MAY MD 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 12/05/2011 RAIN MAY MD 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 12/05/2011 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 12/05/2011 RAIN MAY MD 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 12/05/2011 RAIN MAY MD 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 12/05/2011 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 12/05/2011 CHANDRA HINTON DO 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 12/05/2011 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 12/05/2011 JOSE A DDS, SEGUNDO Choi 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 12/05/2011 RAIN MAY MD 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 12/05/2011 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 12/05/2011 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 12/05/2011 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 12/05/2011 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 12/05/2011 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 12/05/2011 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 12/05/2011 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 12/05/2011 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 12/05/2011 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 12/05/2011 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 12/05/2011 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 12/05/2011 KAILEE CARBONE NATIONAL BUSINESS DIRECTOR, HEAVEN N 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 12/05/2011 KAILEE CARBONE APRN, HEAVEN N 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 12/05/2011 YADIRA DAN, RAIN 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 12/05/2011 YADIRA DAN, RAIN 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 12/05/2011 RAIN AMY MD 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 12/05/2011 RAIN MAY MD 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 12/05/2011 MUSHTAQ CANELA, RODNEY Guo 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 12/05/2011 PERICO DDS, ADELINA Diaz 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 12/05/2011 RAIN MAY MD 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 12/05/2011 YADIRA DAN, RAIN 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 12/05/2011 RAIN MAY MD 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 12/05/2011 YADIRA DAN, RAIN 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 12/05/2011 WHITE DDS, ELDER J 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 12/05/2011 YADIRA DAN, RAIN 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 12/05/2011 RAIN MAY MD 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 12/05/2011 RAIN MAY MD 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 12/05/2011 MARTIN RAMIRESS, ELDER J 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 12/05/2011 RAIN MAY MD 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 12/05/2011 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 12/05/2011 RAIN MAY MD 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 12/05/2011 DWAIN RAMIRESSJAHAIRA 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 12/05/2011 RAIN MAY MD 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 12/05/2011 JOSUÉ CANELA LUIS WHEELER 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 12/05/2011 MARTIN DDS, ELDER J 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 12/05/2011 RAIN MAY MD 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 12/05/2011 RAIN MAY MD 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 12/05/2011 RAIN MAY MD 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 12/05/2011 YADIRA DAN, RAIN 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 12/05/2011 RAIN MAY MD 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 12/05/2011 DEMETRA NATIONAL BUSINESS DIRECTOR, GAURAV 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 12/05/2011 RAIN MAY MD 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 12/05/2011 RAIN MAY MD 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 12/05/2011 DEMETRA NATIONAL BUSINESS DIRECTOR, GAURAV 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 12/05/2011 DEMETRA NATIONAL BUSINESS DIRECTOR, GAURAV 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 01/10/2012 RAIN MAY MD 458.0 ORTHOSTATIC HYPOTENSION 01/10/2012 RAIN MAY MD 458.0 ORTHOSTATIC HYPOTENSION 01/10/2012 458.0 ORTHOSTATIC HYPOTENSION 01/10/2012 RAIN MAY MD 458.0 ORTHOSTATIC HYPOTENSION 01/10/2012 RAIN MAY MD 458.0 ORTHOSTATIC HYPOTENSION 01/10/2012 458.0 ORTHOSTATIC HYPOTENSION 01/10/2012 CHANDRA HINTON DO 458.0 ORTHOSTATIC HYPOTENSION 01/10/2012 458.0 ORTHOSTATIC HYPOTENSION 01/10/2012 JOSE A DDS, SEGUNDO F 458.0 ORTHOSTATIC HYPOTENSION 01/10/2012 RAIN MAY MD 458.0 Orthostatic Hypotension 01/10/2012 458.0 Orthostatic Hypotension 01/10/2012 458.0 Orthostatic Hypotension 01/10/2012 458.0 Orthostatic Hypotension 01/10/2012 458.0 Orthostatic Hypotension 01/10/2012 458.0 Orthostatic Hypotension 01/10/2012 458.0 Orthostatic Hypotension 01/10/2012 458.0 Orthostatic Hypotension 01/10/2012 458.0 Orthostatic Hypotension 01/10/2012 458.0 Orthostatic Hypotension 01/10/2012 458.0 Orthostatic Hypotension 01/10/2012 458.0 Orthostatic Hypotension 01/10/2012 HEAVEN SCHAEFFER APRN N 458.0 Orthostatic Hypotension 01/10/2012 HEAVEN SCHAEFFER APRN N 458.0 Orthostatic Hypotension 01/10/2012 RAIN MAY MD 458.0 Orthostatic Hypotension 01/10/2012 RAIN MAY MD 458.0 Orthostatic Hypotension 01/10/2012 RAIN MAY MD 458.0 Orthostatic Hypotension 01/10/2012 YADIRA DAN, RAIN 458.0 Orthostatic Hypotension 01/10/2012 MUSHTAQ CANELA, RODNEY Guo 458.0 Orthostatic Hypotension 01/10/2012 PERICO BARBOUR, ADELINA Diaz 458.0 Orthostatic Hypotension 01/10/2012 YADIRA DAN, RAIN 458.0 Orthostatic Hypotension 01/10/2012 YADIRA DAN, RAIN 458.0 Orthostatic Hypotension 01/10/2012 YADIRA DAN, RAIN 458.0 Orthostatic Hypotension 01/10/2012 YADIRA DAN, RAIN 458.0 Orthostatic Hypotension 01/10/2012 MARTIN BARBOUR, ELDER J 458.0 Orthostatic Hypotension 01/10/2012 YADIRA DAN, RAIN 458.0 Orthostatic Hypotension 01/10/2012 YADIRA DAN, RAIN 458.0 Orthostatic Hypotension 01/10/2012 YADIRA DAN, RAIN 458.0 Orthostatic Hypotension 01/10/2012 MARTIN BARBOUR, ELDER J 458.0 Orthostatic Hypotension 01/10/2012 YADIRA DAN, RAIN 458.0 Orthostatic Hypotension 01/10/2012 458.0 Orthostatic Hypotension 01/10/2012 YADIRA DAN, RAIN 458.0 Orthostatic Hypotension 01/10/2012 DWAIN BARBOUR, JAHAIRA 458.0 Orthostatic Hypotension 01/10/2012 YADIRA DAN, RAIN 458.0 Orthostatic Hypotension 01/10/2012 JOSUÉ CANELA, LUIS WHELEER 458.0 Orthostatic Hypotension 01/10/2012 MARTIN BARBOUR, ELDER J 458.0 Orthostatic Hypotension 01/10/2012 YADIRA DAN, RAIN 458.0 Orthostatic Hypotension 01/10/2012 YADIRA DAN, RAIN 458.0 Orthostatic Hypotension 01/10/2012 YADIRA DAN, RAIN 458.0 Orthostatic Hypotension 01/10/2012 YADIRA DAN, RAIN 458.0 Orthostatic Hypotension 01/10/2012 YADIRA DAN, RAIN 458.0 Orthostatic Hypotension 01/10/2012 DEMETRA NATIONAL BUSINESS DIRECTOR, GAURAV 458.0 Orthostatic Hypotension 01/10/2012 YADIRA DAN, RAIN 458.0 Orthostatic Hypotension 01/10/2012 YADIRA DAN, RAIN 458.0 Orthostatic Hypotension 01/10/2012 DEMETRA NATIONAL BUSINESS DIRECTOR, GAURAV 458.0 Orthostatic Hypotension 01/10/2012 DEMETRA NATIONAL BUSINESS DIRECTOR, GAURAV 458.0 Orthostatic Hypotension 02/19/2012 Ot 250.00 DIAB BHUMI WO COMPL, TYPE II OR UNSPEC TY 02/19/2012 Ot 591 HYDRONEPHROSIS 02/19/2012 Ot 595.2 CHRONIC CYSTITIS NEC 02/19/2012 Ot 598.9 URETHRAL STRICTURE NOS 02/19/2012 Ot 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, MIDLINE 02/19/2012 Ot 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 02/19/2012 Ot V12.51 HX-VENOUS THROMBOSIS EMBOLISM 02/19/2012 Ot V58.61 ANTICOAGULANTS,LT,CURRENT USE 02/21/2012 Ot 451.19 DEEP PHLEBITIS-LEG NEC 02/22/2012 Ot 599.0 URIN TRACT INFECTION NOS 02/22/2012 Ot 789.00 ABDOMINAL PAIN, UNSPECIFIED SITE 02/22/2012 Ot V45.89 POSTSURGICAL STATES NEC 04/01/2012 RAIN MAY MD 250.03 DIABETES 1 UNCONTROLLED 04/01/2012 RAIN MAY MD 719.07 EDEMA FOOT 04/01/2012 RAIN MAY MD 724.5 BACK PAIN, GENERAL 04/01/2012 250.03 Diabetes 1 Uncontrolled 04/01/2012 719.07 EDEMA FOOT 04/01/2012 724.5 BACK PAIN, GENERAL 04/01/2012 CHANDRA HINTON DO 250.03 Diabetes 1 Uncontrolled 04/01/2012 CHANDRA HINTON DO 719.07 EDEMA FOOT 04/01/2012 CHANDRA HINTON DO 724.5 BACK PAIN, GENERAL 04/01/2012 250.03 Diabetes 1 Uncontrolled 04/01/2012 719.07 EDEMA FOOT 04/01/2012 724.5 BACK PAIN, GENERAL 04/01/2012 SEGUNDO NARANJO DDS 250.03 Diabetes 1 Uncontrolled 04/01/2012 SEGUNDO NARANJO DDS 719.07 EDEMA FOOT 04/01/2012 SEGUNDO NARANJO DDS 724.5 BACK PAIN, GENERAL 04/01/2012 RAIN MAY MD 250.03 Diabetes 1 Uncontrolled 04/01/2012 RAIN MAY MD 719.07 Edema Foot 04/01/2012 RAIN MAY MD 724.5 BACK PAIN, GENERAL 04/01/2012 250.03 Diabetes 1 Uncontrolled 04/01/2012 719.07 Edema Foot 04/01/2012 724.5 BACK PAIN, GENERAL 04/01/2012 250.03 Diabetes 1 Uncontrolled 04/01/2012 719.07 Edema Foot 04/01/2012 724.5 BACK PAIN, GENERAL 04/01/2012 250.03 Diabetes 1 Uncontrolled 04/01/2012 719.07 Edema Foot 04/01/2012 724.5 BACK PAIN, GENERAL 04/01/2012 250.03 Diabetes 1 Uncontrolled 04/01/2012 719.07 Edema Foot 04/01/2012 724.5 BACK PAIN, GENERAL 04/01/2012 250.03 Diabetes 1 Uncontrolled 04/01/2012 719.07 Edema Foot 04/01/2012 724.5 BACK PAIN, GENERAL 04/01/2012 250.03 Diabetes 1 Uncontrolled 04/01/2012 719.07 Edema Foot 04/01/2012 724.5 BACK PAIN, GENERAL 04/01/2012 250.03 Diabetes 1 Uncontrolled 04/01/2012 719.07 Edema Foot 04/01/2012 724.5 BACK PAIN, GENERAL 04/01/2012 250.03 Diabetes 1 Uncontrolled 04/01/2012 719.07 Edema Foot 04/01/2012 724.5 BACK PAIN, GENERAL 04/01/2012 250.03 Diabetes 1 Uncontrolled 04/01/2012 719.07 Edema Foot 04/01/2012 724.5 BACK PAIN, GENERAL 04/01/2012 250.03 Diabetes 1 Uncontrolled 04/01/2012 719.07 Edema Foot 04/01/2012 724.5 BACK PAIN, GENERAL 04/01/2012 250.03 Diabetes 1 Uncontrolled 04/01/2012 719.07 Edema Foot 04/01/2012 724.5 BACK PAIN, GENERAL 04/01/2012 HEAVEN SCHAEFFER APRN N 250.03 Diabetes 1 Uncontrolled 04/01/2012 HEAVEN SCHAEFFER APRN N 719.07 Edema Foot 04/01/2012 HEAVEN SCHAEFFER APRN N 724.5 BACK PAIN, GENERAL 04/01/2012 HEAVEN SCHAEFFER APRN N 250.03 Diabetes 1 Uncontrolled 04/01/2012 HEAVEN SCHAEFFER APRN N 719.07 Edema Foot 04/01/2012 HEAVEN SCHAEFFER APRN N 724.5 BACK PAIN, GENERAL 04/01/2012 YADIRA DAN, RAIN 250.03 Diabetes 1 Uncontrolled 04/01/2012 YADIRA DAN, RAIN 719.07 Edema Foot 04/01/2012 YADIRA DAN, RAIN 724.5 BACK PAIN, GENERAL 04/01/2012 YADIRA DAN, RAIN 250.03 Diabetes 1 Uncontrolled 04/01/2012 YADIRA DAN, RAIN 719.07 Edema Foot 04/01/2012 YADIRA DAN, RAIN 724.5 BACK PAIN, GENERAL 04/01/2012 YADIRA DAN, RAIN 250.03 Diabetes 1 Uncontrolled 04/01/2012 YADIRA DAN, RAIN 719.07 Edema Foot 04/01/2012 YADIRA DAN, RAIN 724.5 BACK PAIN, GENERAL 04/01/2012 YADIRA DAN, RAIN 250.03 Diabetes 1 Uncontrolled 04/01/2012 YADIRA DAN, RAIN 719.07 Edema Foot 04/01/2012 YADIRA DAN, RAIN 724.5 BACK PAIN, GENERAL 04/01/2012 RODNEY LANDIN APRN S 250.03 Diabetes 1 Uncontrolled 04/01/2012 RODNEY LANDIN APRN S 719.07 Edema Foot 04/01/2012 RODNEY LANDIN APRN S 724.5 BACK PAIN, GENERAL 04/01/2012 PERICO BARBOUR, ADELINA Diaz 250.03 Diabetes 1 Uncontrolled 04/01/2012 PERICO RAMIRESS, ADELINA Diaz 719.07 Edema Foot 04/01/2012 PERICO BARBOUR, ADELINA Diaz 724.5 BACK PAIN, GENERAL 04/01/2012 RAIN MAY MD 250.03 Diabetes 1 Uncontrolled 04/01/2012 YADIRA DAN, RAIN 719.07 Edema Foot 04/01/2012 YADIRA DAN, RAIN 724.5 BACK PAIN, GENERAL 04/01/2012 YADIRA DAN, RAIN 250.03 Diabetes 1 Uncontrolled 04/01/2012 YADIRA DAN, RAIN 719.07 Edema Foot 04/01/2012 YADIRA DAN, RAIN 724.5 BACK PAIN, GENERAL 04/01/2012 YADIRA DAN, RAIN 250.03 Diabetes 1 Uncontrolled 04/01/2012 YADIRA DAN, RAIN 719.07 Edema Foot 04/01/2012 YADIRA DAN, RAIN 724.5 BACK PAIN, GENERAL 04/01/2012 YADIRA DAN, RAIN 250.03 Diabetes 1 Uncontrolled 04/01/2012 YADIRA DAN, RAIN 719.07 Edema Foot 04/01/2012 RAIN MAY MD 724.5 BACK PAIN, GENERAL 04/01/2012 MARTIN DDS, ELDER J 250.03 Diabetes 1 Uncontrolled 04/01/2012 MARTIN DDS, ELDER J 719.07 Edema Foot 04/01/2012 MARTIN DDS, ELDER J 724.5 BACK PAIN, GENERAL 04/01/2012 RAIN MAY MD 250.03 Diabetes 1 Uncontrolled 04/01/2012 RAIN MAY MD 719.07 Edema Foot 04/01/2012 YADIRA DAN, RAIN 724.5 BACK PAIN, GENERAL 04/01/2012 RAIN MAY MD 250.03 Diabetes 1 Uncontrolled 04/01/2012 RAIN MAY MD 719.07 Edema Foot 04/01/2012 RAIN MAY MD 724.5 BACK PAIN, GENERAL 04/01/2012 RAIN MAY MD 250.03 Diabetes 1 Uncontrolled 04/01/2012 RAIN MAY MD 719.07 Edema Foot 04/01/2012 RAIN MAY MD 724.5 BACK PAIN, GENERAL 04/01/2012 MARTIN DDS, ELDER J 250.03 Diabetes 1 Uncontrolled 04/01/2012 MARTIN DDS, ELDER J 719.07 Edema Foot 04/01/2012 MARTIN RAMIRESS, ELDER J 724.5 BACK PAIN, GENERAL 04/01/2012 RIAN MAY MD 250.03 Diabetes 1 Uncontrolled 04/01/2012 RAIN MAY MD 719.07 Edema Foot 04/01/2012 RAIN MAY MD 72Max.5 BACK PAIN, GENERAL 04/01/2012 250.03 Diabetes 1 Uncontrolled 04/01/2012 719.07 Edema Foot 04/01/2012 724.5 BACK PAIN, GENERAL 04/01/2012 RAIN MAY MD 250.03 Diabetes 1 Uncontrolled 04/01/2012 RAIN MAY MD 719.07 Edema Foot 04/01/2012 RAIN MAY MD 724.5 BACK PAIN, GENERAL 04/01/2012 DWAIN RAMIRESSJAHAIRA 250.03 Diabetes 1 Uncontrolled 04/01/2012 DWAIN RAMIRESSJAHAIRA 719.07 Edema Foot 04/01/2012 LEX PRAKASH DDSW 724.5 BACK PAIN, GENERAL 04/01/2012 RAIN MAY MD 250.03 Diabetes 1 Uncontrolled 04/01/2012 YADIRA DAN, RAIN 719.07 Edema Foot 04/01/2012 YADIRA DAN, RAIN 724.5 BACK PAIN, GENERAL 04/01/2012 JOSUÉ CANELA, LUIS WHEELER 250.03 Diabetes 1 Uncontrolled 04/01/2012 MOSES NATIONAL BUSINESS DIRECTOR, LUIS WHEELER 719.07 Edema Foot 04/01/2012 JOSUÉ CASTANEDAN, LUIS WHEELER 724.5 BACK PAIN, GENERAL 04/01/2012 WHITE DDS, ELDER J 250.03 Diabetes 1 Uncontrolled 04/01/2012 WHITE DDS, ELDER J 719.07 Edema Foot 04/01/2012 WHITE DDS, ELDER J 724.5 BACK PAIN, GENERAL 04/01/2012 RAIN MAY MD 250.03 Diabetes 1 Uncontrolled 04/01/2012 RAIN MAY MD9.07 Edema Foot 04/01/2012 YADIRA DAN, RAIN 72Max.5 BACK PAIN, GENERAL 04/01/2012 RAIN MAY MD 250.03 Diabetes 1 Uncontrolled 04/01/2012 YADIRA DAN, RAIN 719.07 Edema Foot 04/01/2012 YADIRA DAN, RAIN 72Max.5 BACK PAIN, GENERAL 04/01/2012 RAIN MAY MD 250.03 Diabetes 1 Uncontrolled 04/01/2012 RAIN MAY MD 719.07 Edema Foot 04/01/2012 YADIRA DAN, RAIN 72Max.5 BACK PAIN, GENERAL 04/01/2012 RAIN MAY MD 250.03 Diabetes 1 Uncontrolled 04/01/2012 RAIN MAY MD 719.07 Edema Foot 04/01/2012 RAIN MAY MD 72Max.5 BACK PAIN, GENERAL 04/01/2012 RAIN MAY MD 250.03 Diabetes 1 Uncontrolled 04/01/2012 RAIN MAY MD 719.07 Edema Foot 04/01/2012 RAIN MAY MD 72Max.5 BACK PAIN, GENERAL 04/01/2012 DEMETRA NATIONAL BUSINESS DIRECTOR, GAURAV 250.03 Diabetes 1 Uncontrolled 04/01/2012 DEMETRA NATIONAL BUSINESS DIRECTOR, GAURAV 719.07 Edema Foot 04/01/2012 DEMETRA NATIONAL BUSINESS DIRECTOR, GAURAV 724.5 BACK PAIN, GENERAL 04/01/2012 RAIN MAY MD 250.03 Diabetes 1 Uncontrolled 04/01/2012 RAIN MAY MD 719.07 Edema Foot 04/01/2012 RAIN MAY MD 724.5 BACK PAIN, GENERAL 04/01/2012 RAIN MAY MD 250.03 Diabetes 1 Uncontrolled 04/01/2012 RAIN MAY MD 719.07 Edema Foot 04/01/2012 RAIN MAY MD 724.5 BACK PAIN, GENERAL 04/01/2012 DEMETRA NATIONAL BUSINESS DIRECTOR, GAURAV 250.03 Diabetes 1 Uncontrolled 04/01/2012 DEMETRA NATIONAL BUSINESS DIRECTOR, GAURAV 719.07 Edema Foot 04/01/2012 DEMETRA NATIONAL BUSINESS DIRECTOR, GAURAV 724.5 BACK PAIN, GENERAL 04/01/2012 DEMETRA NATIONAL BUSINESS DIRECTOR, GAURAV 250.03 Diabetes 1 Uncontrolled 04/01/2012 DEMETRA NATIONAL BUSINESS DIRECTOR, GAURAV 719.07 Edema Foot 04/01/2012 DEMETRA NATIONAL BUSINESS DIRECTOR, GAURAV 724.5 BACK PAIN, GENERAL 04/18/2012 CHANDRA HINTON DO 132.0 PEDICULUS CAPITIS (HEAD LOUSE) 04/18/2012 132.0 PEDICULUS CAPITIS (HEAD LOUSE) 04/18/2012 JOSE A DDS, SEGUNDO Choi 132.0 PEDICULUS CAPITIS (HEAD LOUSE) 04/18/2012 RAIN MAY MD 132.0 Pediculus Capitis (head Louse) 04/18/2012 132.0 Pediculus Capitis (head Louse) 04/18/2012 132.0 Pediculus Capitis (head Louse) 04/18/2012 132.0 Pediculus Capitis (head Louse) 04/18/2012 132.0 Pediculus Capitis (head Louse) 04/18/2012 132.0 Pediculus Capitis (head Louse) 04/18/2012 132.0 Pediculus Capitis (head Louse) 04/18/2012 132.0 Pediculus Capitis (head Louse) 04/18/2012 132.0 Pediculus Capitis (head Louse) 04/18/2012 132.0 Pediculus Capitis (head Louse) 04/18/2012 132.0 Pediculus Capitis (head Louse) 04/18/2012 132.0 Pediculus Capitis (head Louse) 04/18/2012 HEAVEN SCHAEFFER APRN N 132.0 Pediculus Capitis (head Louse) 04/18/2012 HEAVEN SCHAEFFER APRN N 132.0 Pediculus Capitis (head Louse) 04/18/2012 RAIN MAY MD 132.0 Pediculus Capitis (head Louse) 04/18/2012 YADIRA DAN, RAIN 132.0 Pediculus Capitis (head Louse) 04/18/2012 YADIRA DAN, RAIN 132.0 Pediculus Capitis (head Louse) 04/18/2012 RAIN MAY MD 132.0 Pediculus Capitis (head Louse) 04/18/2012 RODNEY LANDIN APRN 132.0 Pediculus Capitis (head Louse) 04/18/2012 PERICO BARBOUR, ADELINA Diaz 132.0 Pediculus Capitis (head Louse) 04/18/2012 RAIN MAY MD 132.0 Pediculus Capitis (head Louse) 04/18/2012 RANI MAY MD 132.0 Pediculus Capitis (head Louse) 04/18/2012 RAIN MAY MD 132.0 Pediculus Capitis (head Louse) 04/18/2012 RAIN MAY MD 132.0 Pediculus Capitis (head Louse) 04/18/2012 ELDER SALAZAR DDS 132.0 Pediculus Capitis (head Louse) 04/18/2012 RAIN MAY MD 132.0 Pediculus Capitis (head Louse) 04/18/2012 RAIN MAY MD 132.0 Pediculus Capitis (head Louse) 04/18/2012 RAIN MAY MD 132.0 Pediculus Capitis (head Louse) 04/18/2012 ELDER SALAZAR DDS 132.0 Pediculus Capitis (head Louse) 04/18/2012 RAIN MAY MD 132.0 Pediculus Capitis (head Louse) 04/18/2012 132.0 Pediculus Capitis (head Louse) 04/18/2012 RAIN MAY MD 132.0 Pediculus Capitis (head Louse) 04/18/2012 JAHAIRA PRAKASH DDS 132.0 Pediculus Capitis (head Louse) 04/18/2012 RAIN MAY MD 132.0 Pediculus Capitis (head Louse) 04/18/2012 LUIS MOSES APRN 132.0 Pediculus Capitis (head Louse) 04/18/2012 ELDER SALAZAR DDS 132.0 Pediculus Capitis (head Louse) 04/18/2012 RAIN MAY MD 132.0 Pediculus Capitis (head Louse) 04/18/2012 RAIN MAY MD 132.0 Pediculus Capitis (head Louse) 04/18/2012 RAIN MAY MD 132.0 Pediculus Capitis (head Louse) 04/18/2012 RAIN MAY MD 132.0 Pediculus Capitis (head Louse) 04/18/2012 RAIN MAY MD 132.0 Pediculus Capitis (head Louse) 04/18/2012 GAURAV MCCRARY APRN 132.0 Pediculus Capitis (head Louse) 04/18/2012 RAIN MAY MD 132.0 Pediculus Capitis (head Louse) 04/18/2012 RAIN MAY MD 132.0 Pediculus Capitis (head Louse) 04/18/2012 GAURAV MCCRARY APRN 132.0 Pediculus Capitis (head Louse) 04/18/2012 GAURAV MCCRARY APRN 132.0 Pediculus Capitis (head Louse) 05/26/2012 RAIN MAY MD 457.1 OTHER LYMPHEDEMA 05/26/2012 457.1 OTHER LYMPHEDEMA 05/26/2012 457.1 OTHER LYMPHEDEMA 05/26/2012 457.1 OTHER LYMPHEDEMA 05/26/2012 457.1 OTHER LYMPHEDEMA 05/26/2012 457.1 OTHER LYMPHEDEMA 05/26/2012 457.1 OTHER LYMPHEDEMA 05/26/2012 457.1 OTHER LYMPHEDEMA 05/26/2012 457.1 OTHER LYMPHEDEMA 05/26/2012 457.1 OTHER LYMPHEDEMA 05/26/2012 457.1 OTHER LYMPHEDEMA 05/26/2012 457.1 OTHER LYMPHEDEMA 05/26/2012 HEAVEN SCHAEFFER APRN 457.1 OTHER LYMPHEDEMA 05/26/2012 HEAVEN SCHAEFFER APRN 457.1 OTHER LYMPHEDEMA 05/26/2012 RAIN MAY MD 457.1 OTHER LYMPHEDEMA 05/26/2012 RAIN MAY MD 457.1 OTHER LYMPHEDEMA 05/26/2012 RAIN MAY MD 457.1 OTHER LYMPHEDEMA 05/26/2012 RANI MAY MD 457.1 OTHER LYMPHEDEMA 05/26/2012 RODNEY LANDIN APRN 457.1 OTHER LYMPHEDEMA 05/26/2012 PERICO BARBOUR, ADELINA Diaz 457.1 OTHER LYMPHEDEMA 05/26/2012 RAIN MAY MD 457.1 OTHER LYMPHEDEMA 05/26/2012 RAIN MAY MD 457.1 OTHER LYMPHEDEMA 05/26/2012 RAIN MAY MD 457.1 OTHER LYMPHEDEMA 05/26/2012 RAIN MAY MD 457.1 OTHER LYMPHEDEMA 05/26/2012 ELDER SALAZAR DDS 457.1 OTHER LYMPHEDEMA 05/26/2012 RAIN MAY MD 457.1 OTHER LYMPHEDEMA 05/26/2012 RAIN MAY MD 457.1 OTHER LYMPHEDEMA 05/26/2012 RAIN MAY MD 457.1 OTHER LYMPHEDEMA 05/26/2012 ELDER SALAZAR DDS 457.1 OTHER LYMPHEDEMA 05/26/2012 RAIN MAY MD 457.1 OTHER LYMPHEDEMA 05/26/2012 457.1 OTHER LYMPHEDEMA 05/26/2012 RAIN MAY MD 457.1 OTHER LYMPHEDEMA 05/26/2012 DWAIN BARBOUR, JAHAIRA 457.1 OTHER LYMPHEDEMA 05/26/2012 RAIN MAY MD 457.1 OTHER LYMPHEDEMA 05/26/2012 LUIS MOSES APRN 457.1 OTHER LYMPHEDEMA 05/26/2012 ELDER SALAZAR DDS 457.1 OTHER LYMPHEDEMA 05/26/2012 RAIN MAY MD 457.1 OTHER LYMPHEDEMA 05/26/2012 RAIN MAY MD 457.1 OTHER LYMPHEDEMA 05/26/2012 RAIN MAY MD 457.1 OTHER LYMPHEDEMA 05/26/2012 RAIN MAY MD 457.1 OTHER LYMPHEDEMA 05/26/2012 RAIN MAY MD 457.1 OTHER LYMPHEDEMA 05/26/2012 GAURAV MCCRARY APRN 457.1 OTHER LYMPHEDEMA 05/26/2012 RAIN MAY MD 457.1 OTHER LYMPHEDEMA 05/26/2012 RAIN MAY MD 457.1 OTHER LYMPHEDEMA 05/26/2012 GAURAV MCCRARY APRN 457.1 OTHER LYMPHEDEMA 05/26/2012 GAURAV MCCRARY APRN 457.1 OTHER LYMPHEDEMA 06/18/2012 Ot 457.1 OTHER LYMPHEDEMA 06/18/2012 Ot V12.51 HX-VENOUS THROMBOSIS EMBOLISM 06/18/2012 Ot V57.21 ENCOUNTER FOR OCCUPATIONAL THERAPY 07/07/2012 V70.0 ROUTINE GENERAL MEDICAL EXAMINATION AT A HEALTH CARE FACILITY 07/07/2012 V70.0 ROUTINE GENERAL MEDICAL EXAMINATION AT A HEALTH CARE FACILITY 07/07/2012 V70.0 ROUTINE GENERAL MEDICAL EXAMINATION AT A HEALTH CARE FACILITY 07/07/2012 V70.0 ROUTINE GENERAL MEDICAL EXAMINATION AT A HEALTH CARE FACILITY 07/07/2012 V70.0 ROUTINE GENERAL MEDICAL EXAMINATION AT A HEALTH CARE FACILITY 07/07/2012 V70.0 ROUTINE GENERAL MEDICAL EXAMINATION AT A HEALTH CARE FACILITY 07/07/2012 V70.0 ROUTINE GENERAL MEDICAL EXAMINATION AT A HEALTH CARE FACILITY 07/07/2012 V70.0 ROUTINE GENERAL MEDICAL EXAMINATION AT A HEALTH CARE FACILITY 07/07/2012 V70.0 ROUTINE GENERAL MEDICAL EXAMINATION AT A HEALTH CARE FACILITY 07/07/2012 V70.0 ROUTINE GENERAL MEDICAL EXAMINATION AT A HEALTH CARE FACILITY 07/07/2012 V70.0 ROUTINE GENERAL MEDICAL EXAMINATION AT A HEALTH CARE FACILITY 07/07/2012 HEAVEN SCHAEFFER APRN V70.0 ROUTINE GENERAL MEDICAL EXAMINATION AT A HEALTH CARE FACILITY 07/07/2012 HEAVEN SCHAEFFER APRN V70.0 ROUTINE GENERAL MEDICAL EXAMINATION AT A HEALTH CARE FACILITY 07/07/2012 RAIN MAY MD V70.0 ROUTINE GENERAL MEDICAL EXAMINATION AT A HEALTH CARE FACILITY 07/07/2012 RAIN MAY MD V70.0 ROUTINE GENERAL MEDICAL EXAMINATION AT A HEALTH CARE FACILITY 07/07/2012 RAIN MAY MD V70.0 ROUTINE GENERAL MEDICAL EXAMINATION AT A HEALTH CARE FACILITY 07/07/2012 RAIN MAY MD V70.0 ROUTINE GENERAL MEDICAL EXAMINATION AT A HEALTH CARE FACILITY 07/07/2012 RODNEY LANDIN APRN V70.0 ROUTINE GENERAL MEDICAL EXAMINATION AT A HEALTH CARE FACILITY 07/07/2012 ADELINA RIVER DDS V70.0 ROUTINE GENERAL MEDICAL EXAMINATION AT A HEALTH CARE FACILITY 07/07/2012 RAIN MAY MD V70.0 ROUTINE GENERAL MEDICAL EXAMINATION AT A HEALTH CARE FACILITY 07/07/2012 RAIN MAY MD V70.0 ROUTINE GENERAL MEDICAL EXAMINATION AT A HEALTH CARE FACILITY 07/07/2012 RAIN MAY MD V70.0 ROUTINE GENERAL MEDICAL EXAMINATION AT A HEALTH CARE FACILITY 07/07/2012 RAIN MAY MD V70.0 ROUTINE GENERAL MEDICAL EXAMINATION AT A HEALTH CARE FACILITY 07/07/2012 ELDER SALAZAR DDS V70.0 ROUTINE GENERAL MEDICAL EXAMINATION AT A HEALTH CARE FACILITY 07/07/2012 RAIN MAY MD V70.0 ROUTINE GENERAL MEDICAL EXAMINATION AT A HEALTH CARE FACILITY 07/07/2012 RAIN MAY MD V70.0 ROUTINE GENERAL MEDICAL EXAMINATION AT A HEALTH CARE FACILITY 07/07/2012 RAIN MAY MD V70.0 ROUTINE GENERAL MEDICAL EXAMINATION AT A HEALTH CARE FACILITY 07/07/2012 ELDER SALAZAR DDS V70.0 ROUTINE GENERAL MEDICAL EXAMINATION AT A HEALTH CARE FACILITY 07/07/2012 RAIN MAY MD V70.0 ROUTINE GENERAL MEDICAL EXAMINATION AT A HEALTH CARE FACILITY 07/07/2012 V70.0 ROUTINE GENERAL MEDICAL EXAMINATION AT A HEALTH CARE FACILITY 07/07/2012 RAIN MAY MD V70.0 ROUTINE GENERAL MEDICAL EXAMINATION AT A HEALTH CARE FACILITY 07/07/2012 JAHAIRA PRAKASH DDS V70.0 ROUTINE GENERAL MEDICAL EXAMINATION AT A HEALTH CARE FACILITY 07/07/2012 RAIN MAY MD V70.0 ROUTINE GENERAL MEDICAL EXAMINATION AT A HEALTH CARE FACILITY 07/07/2012 LUIS MOSES APRN V70.0 ROUTINE GENERAL MEDICAL EXAMINATION AT A HEALTH CARE FACILITY 07/07/2012 ELDER SALAZAR DDS V70.0 ROUTINE GENERAL MEDICAL EXAMINATION AT A HEALTH CARE FACILITY 07/07/2012 RAIN MAY MD V70.0 ROUTINE GENERAL MEDICAL EXAMINATION AT A HEALTH CARE FACILITY 07/07/2012 RAIN MAY MD V70.0 ROUTINE GENERAL MEDICAL EXAMINATION AT A HEALTH CARE FACILITY 07/07/2012 RAIN MAY MD V70.0 ROUTINE GENERAL MEDICAL EXAMINATION AT A HEALTH CARE FACILITY 07/07/2012 RAIN MAY MD V70.0 ROUTINE GENERAL MEDICAL EXAMINATION AT A HEALTH CARE FACILITY 07/07/2012 RAIN MAY MD V70.0 ROUTINE GENERAL MEDICAL EXAMINATION AT A HEALTH CARE FACILITY 07/07/2012 GAURAV MCCRARY APRN V70.0 ROUTINE GENERAL MEDICAL EXAMINATION AT A HEALTH CARE FACILITY 07/07/2012 YADIRA DAN, RAIN V70.0 ROUTINE GENERAL MEDICAL EXAMINATION AT A HEALTH CARE FACILITY 07/07/2012 YADIRA DAN, RAIN V70.0 ROUTINE GENERAL MEDICAL EXAMINATION AT A HEALTH CARE FACILITY 07/07/2012 GAURAV MCCRARY APRN V70.0 ROUTINE GENERAL MEDICAL EXAMINATION AT A HEALTH CARE FACILITY 07/07/2012 GAURAV MCCRARY APRN V70.0 ROUTINE GENERAL MEDICAL EXAMINATION AT A HEALTH CARE FACILITY 07/13/2012 GIO ROTHMAN DO K Ot 595.9 CYSTITIS NOS 07/13/2012 KELLEE ROTHMAN DOA K Ot 599.70 HEMATURIA, UNSPECIFIED 07/13/2012 GIO ROTHMAN DO Ot V58.61 ANTICOAGULANTS,LT,CURRENT USE 07/13/2012 GIO ROTHMAN DO Ot V58.69 OTH MED,LT,CURRENT USE 07/14/2012 314.01 ADHD COMBINED 07/14/2012 314.01 ADHD COMBINED 07/14/2012 314.01 ADHD COMBINED 07/14/2012 314.01 ADHD COMBINED 07/14/2012 314.01 ADHD COMBINED 07/14/2012 314.01 ADHD COMBINED 07/14/2012 314.01 ADHD COMBINED 07/14/2012 314.01 ADHD COMBINED 07/14/2012 314.01 ADHD COMBINED 07/14/2012 314.01 ADHD COMBINED 07/14/2012 HEAVEN SCHAEFFER APRN N 314.01 ADHD COMBINED 07/14/2012 HEAVEN SCHAEFFER APRN N 314.01 ADHD COMBINED 07/14/2012 YADIRA DAN, RAIN 314.01 ADHD COMBINED 07/14/2012 YADIRA DAN, RAIN 314.01 ADHD COMBINED 07/14/2012 YADIRA DAN, RAIN 314.01 ADHD COMBINED 07/14/2012 YADIRA DAN, RAIN 314.01 ADHD COMBINED 07/14/2012 RODNEY LANDIN APRN 314.01 ADHD COMBINED 07/14/2012 ADELINA RIVER DDS 314.01 ADHD COMBINED 07/14/2012 YADIRA DAN, RAIN 314.01 ADHD COMBINED 07/14/2012 YADIRA DAN, RAIN 314.01 ADHD COMBINED 07/14/2012 YADIRA DAN, RAIN 314.01 ADHD COMBINED 07/14/2012 YADIRA DAN, RAIN 314.01 ADHD COMBINED 07/14/2012 WHITE DDS, ELDER J 314.01 ADHD COMBINED 07/14/2012 YADIRA DAN, RAIN 314.01 ADHD COMBINED 07/14/2012 YADIRA DAN, RAIN 314.01 ADHD COMBINED 07/14/2012 YADIRA DAN, RAIN 314.01 ADHD COMBINED 07/14/2012 WHITE DDS, ELDER J 314.01 ADHD COMBINED 07/14/2012 YADIRA DAN, RAIN 314.01 ADHD COMBINED 07/14/2012 314.01 ADHD COMBINED 07/14/2012 YADIRA DAN, RAIN 314.01 ADHD COMBINED 07/14/2012 DWAIN DDS, JAHAIRA 314.01 ADHD COMBINED 07/14/2012 YADIRA DAN, RAIN 314.01 ADHD COMBINED 07/14/2012 JOSUÉ CANELA, LUIS LIAM 314.01 ADHD COMBINED 07/14/2012 WHITE DDS, ELDER J 314.01 ADHD COMBINED 07/14/2012 YADIRA DAN, RAIN 314.01 ADHD COMBINED 07/14/2012 YADIRA DAN, RAIN 314.01 ADHD COMBINED 07/14/2012 YADIRA DAN, RAIN 314.01 ADHD COMBINED 07/14/2012 YADIRA DAN, RAIN 314.01 ADHD COMBINED 07/14/2012 YADIRA DAN, RAIN 314.01 ADHD COMBINED 07/14/2012 DEMETRA CASTANEDAN, GAURAV 314.01 ADHD COMBINED 07/14/2012 YADIRA DAN, RAIN 314.01 ADHD COMBINED 07/14/2012 YADIRA DAN, RAIN 314.01 ADHD COMBINED 07/14/2012 DEMETRA NATIONAL BUSINESS DIRECTOR, GAURAV 314.01 ADHD COMBINED 07/14/2012 DEMETRA CASTANEDAN, GAURAV 314.01 ADHD COMBINED 08/26/2012 250.02 DIABETES MELLITUS WITHOUT MENTION OF COMPLICATION TYPE II OR UNSPECIFIED TYPE UNCONTROLLED 08/26/2012 V67.9 UNSPECIFIED FOLLOW-UP EXAMINATION 08/26/2012 250.02 DIABETES MELLITUS WITHOUT MENTION OF COMPLICATION TYPE II OR UNSPECIFIED TYPE UNCONTROLLED 08/26/2012 V67.9 UNSPECIFIED FOLLOW-UP EXAMINATION 08/26/2012 250.02 DIABETES MELLITUS WITHOUT MENTION OF COMPLICATION TYPE II OR UNSPECIFIED TYPE UNCONTROLLED 08/26/2012 V67.9 UNSPECIFIED FOLLOW-UP EXAMINATION 08/26/2012 250.02 DIABETES MELLITUS WITHOUT MENTION OF COMPLICATION TYPE II OR UNSPECIFIED TYPE UNCONTROLLED 08/26/2012 V67.9 UNSPECIFIED FOLLOW-UP EXAMINATION 08/26/2012 250.02 DIABETES MELLITUS WITHOUT MENTION OF COMPLICATION TYPE II OR UNSPECIFIED TYPE UNCONTROLLED 08/26/2012 V67.9 UNSPECIFIED FOLLOW-UP EXAMINATION 08/26/2012 250.02 DIABETES MELLITUS WITHOUT MENTION OF COMPLICATION TYPE II OR UNSPECIFIED TYPE UNCONTROLLED 08/26/2012 V67.9 UNSPECIFIED FOLLOW-UP EXAMINATION 08/26/2012 KAILEE MOSELEYERO NATIONAL BUSINESS DIRECTOR, HEAVEN N 250.02 DIABETES MELLITUS WITHOUT MENTION OF COMPLICATION TYPE II OR UNSPECIFIED TYPE UNCONTROLLED 08/26/2012 KAILEE MOSELEYERO NATIONAL BUSINESS DIRECTOR, HEAVEN N V67.9 UNSPECIFIED FOLLOW-UP EXAMINATION 08/26/2012 KAILEE MOSELEYERO NATIONAL BUSINESS DIRECTOR, HEAVEN N 250.02 DIABETES MELLITUS WITHOUT MENTION OF COMPLICATION TYPE II OR UNSPECIFIED TYPE UNCONTROLLED 08/26/2012 KAILEE MOSELEYARTURO NATIONAL BUSINESS DIRECTOR, HEAVEN N V67.9 UNSPECIFIED FOLLOW-UP EXAMINATION 08/26/2012 RAIN MAY MD 250.02 DIABETES MELLITUS WITHOUT MENTION OF COMPLICATION TYPE II OR UNSPECIFIED TYPE UNCONTROLLED 08/26/2012 RAIN MAY MD V67.9 UNSPECIFIED FOLLOW-UP EXAMINATION 08/26/2012 RAIN MAY MD 250.02 DIABETES MELLITUS WITHOUT MENTION OF COMPLICATION TYPE II OR UNSPECIFIED TYPE UNCONTROLLED 08/26/2012 RAIN MAY MD V67.9 UNSPECIFIED FOLLOW-UP EXAMINATION 08/26/2012 RAIN MAY MD 250.02 DIABETES MELLITUS WITHOUT MENTION OF COMPLICATION TYPE II OR UNSPECIFIED TYPE UNCONTROLLED 08/26/2012 RAIN MAY MD V67.9 UNSPECIFIED FOLLOW-UP EXAMINATION 08/26/2012 RAIN MAY MD 250.02 DIABETES MELLITUS WITHOUT MENTION OF COMPLICATION TYPE II OR UNSPECIFIED TYPE UNCONTROLLED 08/26/2012 RAIN MAY MD V67.9 UNSPECIFIED FOLLOW-UP EXAMINATION 08/26/2012 RODNEY LANDIN APRN S 250.02 DIABETES MELLITUS WITHOUT MENTION OF COMPLICATION TYPE II OR UNSPECIFIED TYPE UNCONTROLLED 08/26/2012 FÉLIX LANDIN APRNA S V67.9 UNSPECIFIED FOLLOW-UP EXAMINATION 08/26/2012 A[place] DDS 250.02 DIABETES MELLITUS WITHOUT MENTION OF COMPLICATION TYPE II OR UNSPECIFIED TYPE UNCONTROLLED 08/26/2012 [place] DDS V67.9 UNSPECIFIED FOLLOW-UP EXAMINATION 08/26/2012 RAIN MAY MD 250.02 DIABETES MELLITUS WITHOUT MENTION OF COMPLICATION TYPE II OR UNSPECIFIED TYPE UNCONTROLLED 08/26/2012 RAIN MAY MD V67.9 UNSPECIFIED FOLLOW-UP EXAMINATION 08/26/2012 RAIN MAY MD 250.02 DIABETES MELLITUS WITHOUT MENTION OF COMPLICATION TYPE II OR UNSPECIFIED TYPE UNCONTROLLED 08/26/2012 RAIN MAY MD V67.9 UNSPECIFIED FOLLOW-UP EXAMINATION 08/26/2012 RAIN MAY MD 250.02 DIABETES MELLITUS WITHOUT MENTION OF COMPLICATION TYPE II OR UNSPECIFIED TYPE UNCONTROLLED 08/26/2012 RAIN MAY MD V67.9 UNSPECIFIED FOLLOW-UP EXAMINATION 08/26/2012 RAIN MAY MD 250.02 DIABETES MELLITUS WITHOUT MENTION OF COMPLICATION TYPE II OR UNSPECIFIED TYPE UNCONTROLLED 08/26/2012 RAIN MAY MD V67.9 UNSPECIFIED FOLLOW-UP EXAMINATION 08/26/2012 LUCIO SALAZAR DDSON J 250.02 DIABETES MELLITUS WITHOUT MENTION OF COMPLICATION TYPE II OR UNSPECIFIED TYPE UNCONTROLLED 08/26/2012 ELDER SALAZAR DDS J V67.9 UNSPECIFIED FOLLOW-UP EXAMINATION 08/26/2012 RAIN MAY MD 250.02 DIABETES MELLITUS WITHOUT MENTION OF COMPLICATION TYPE II OR UNSPECIFIED TYPE UNCONTROLLED 08/26/2012 RAIN MAY MD V67.9 UNSPECIFIED FOLLOW-UP EXAMINATION 08/26/2012 RAIN MAY MD 250.02 DIABETES MELLITUS WITHOUT MENTION OF COMPLICATION TYPE II OR UNSPECIFIED TYPE UNCONTROLLED 08/26/2012 RAIN MAY MD V67.9 UNSPECIFIED FOLLOW-UP EXAMINATION 08/26/2012 RAIN MAY MD 250.02 DIABETES MELLITUS WITHOUT MENTION OF COMPLICATION TYPE II OR UNSPECIFIED TYPE UNCONTROLLED 08/26/2012 RAIN MAY MD V67.9 UNSPECIFIED FOLLOW-UP EXAMINATION 08/26/2012 LUCIO SALAZAR DDSON J 250.02 DIABETES MELLITUS WITHOUT MENTION OF COMPLICATION TYPE II OR UNSPECIFIED TYPE UNCONTROLLED 08/26/2012 ELDER SALAZAR DDS J V67.9 UNSPECIFIED FOLLOW-UP EXAMINATION 08/26/2012 RAIN MAY MD 250.02 DIABETES MELLITUS WITHOUT MENTION OF COMPLICATION TYPE II OR UNSPECIFIED TYPE UNCONTROLLED 08/26/2012 RAIN MAY MD V67.9 UNSPECIFIED FOLLOW-UP EXAMINATION 08/26/2012 250.02 DIABETES MELLITUS WITHOUT MENTION OF COMPLICATION TYPE II OR UNSPECIFIED TYPE UNCONTROLLED 08/26/2012 V67.9 UNSPECIFIED FOLLOW-UP EXAMINATION 08/26/2012 RAIN MAY MD 250.02 DIABETES MELLITUS WITHOUT MENTION OF COMPLICATION TYPE II OR UNSPECIFIED TYPE UNCONTROLLED 08/26/2012 RAIN MAY MD V67.9 UNSPECIFIED FOLLOW-UP EXAMINATION 08/26/2012 DWAIN BARBOUR, JAHAIRA 250.02 DIABETES MELLITUS WITHOUT MENTION OF COMPLICATION TYPE II OR UNSPECIFIED TYPE UNCONTROLLED 08/26/2012 DWAIN RAMIRESS, JAHAIRA V67.9 UNSPECIFIED FOLLOW-UP EXAMINATION 08/26/2012 RAIN MAY MD 250.02 DIABETES MELLITUS WITHOUT MENTION OF COMPLICATION TYPE II OR UNSPECIFIED TYPE UNCONTROLLED 08/26/2012 RAIN MAY MD V67.9 UNSPECIFIED FOLLOW-UP EXAMINATION 08/26/2012 JOSUÉ CANELA, LUIS WHEELER 250.02 DIABETES MELLITUS WITHOUT MENTION OF COMPLICATION TYPE II OR UNSPECIFIED TYPE UNCONTROLLED 08/26/2012 JOSUÉ CANELA, LUIS WHEELER V67.9 UNSPECIFIED FOLLOW-UP EXAMINATION 08/26/2012 ELDER SALAZAR DDS 250.02 DIABETES MELLITUS WITHOUT MENTION OF COMPLICATION TYPE II OR UNSPECIFIED TYPE UNCONTROLLED 08/26/2012 MARTIN BARBOUR, ELDER Sims V67.9 UNSPECIFIED FOLLOW-UP EXAMINATION 08/26/2012 RAIN MAY MD 250.02 DIABETES MELLITUS WITHOUT MENTION OF COMPLICATION TYPE II OR UNSPECIFIED TYPE UNCONTROLLED 08/26/2012 RAIN MAY MD V67.9 UNSPECIFIED FOLLOW-UP EXAMINATION 08/26/2012 RAIN MAY MD 250.02 DIABETES MELLITUS WITHOUT MENTION OF COMPLICATION TYPE II OR UNSPECIFIED TYPE UNCONTROLLED 08/26/2012 RAIN MAY MD V67.9 UNSPECIFIED FOLLOW-UP EXAMINATION 08/26/2012 RAIN MAY MD 250.02 DIABETES MELLITUS WITHOUT MENTION OF COMPLICATION TYPE II OR UNSPECIFIED TYPE UNCONTROLLED 08/26/2012 RAIN MAY MD V67.9 UNSPECIFIED FOLLOW-UP EXAMINATION 08/26/2012 RAIN MAY MD 250.02 DIABETES MELLITUS WITHOUT MENTION OF COMPLICATION TYPE II OR UNSPECIFIED TYPE UNCONTROLLED 08/26/2012 RAIN MAY MD V67.9 UNSPECIFIED FOLLOW-UP EXAMINATION 08/26/2012 RAIN MAY MD 250.02 DIABETES MELLITUS WITHOUT MENTION OF COMPLICATION TYPE II OR UNSPECIFIED TYPE UNCONTROLLED 08/26/2012 RAIN MAY MD V67.9 UNSPECIFIED FOLLOW-UP EXAMINATION 08/26/2012 DEMETRA CANELA, GAURAV 250.02 DIABETES MELLITUS WITHOUT MENTION OF COMPLICATION TYPE II OR UNSPECIFIED TYPE UNCONTROLLED 08/26/2012 DEMETRA CANELA, GAURAV V67.9 UNSPECIFIED FOLLOW-UP EXAMINATION 08/26/2012 YADIRA DAN, RAIN 250.02 DIABETES MELLITUS WITHOUT MENTION OF COMPLICATION TYPE II OR UNSPECIFIED TYPE UNCONTROLLED 08/26/2012 YADIRA DAN, RAIN V67.9 UNSPECIFIED FOLLOW-UP EXAMINATION 08/26/2012 YADIRA DAN, RAIN 250.02 DIABETES MELLITUS WITHOUT MENTION OF COMPLICATION TYPE II OR UNSPECIFIED TYPE UNCONTROLLED 08/26/2012 YADIRA DAN, RAIN V67.9 UNSPECIFIED FOLLOW-UP EXAMINATION 08/26/2012 DEMETRA CANELA, GAURAV 250.02 DIABETES MELLITUS WITHOUT MENTION OF COMPLICATION TYPE II OR UNSPECIFIED TYPE UNCONTROLLED 08/26/2012 DEMETRA CANELA, GAURAV V67.9 UNSPECIFIED FOLLOW-UP EXAMINATION 08/26/2012 DEMETRA CANELA, GAURAV 250.02 DIABETES MELLITUS WITHOUT MENTION OF COMPLICATION TYPE II OR UNSPECIFIED TYPE UNCONTROLLED 08/26/2012 DEMETRA CANELA, GAURAV V67.9 UNSPECIFIED FOLLOW-UP EXAMINATION 09/05/2012 786.30 HEMOPTYSIS UNSPECIFIED 09/05/2012 786.30 HEMOPTYSIS UNSPECIFIED 09/05/2012 786.30 HEMOPTYSIS UNSPECIFIED 09/05/2012 786.30 HEMOPTYSIS UNSPECIFIED 09/05/2012 HEAVEN SCHAEFFER APRN N 786.30 HEMOPTYSIS UNSPECIFIED 09/05/2012 HEAVEN SCHAEFFER APRN N 786.30 HEMOPTYSIS UNSPECIFIED 09/05/2012 RAIN MAY MD 786.30 HEMOPTYSIS UNSPECIFIED 09/05/2012 RAIN MAY MD 786.30 HEMOPTYSIS UNSPECIFIED 09/05/2012 RAIN MAY MD 786.30 HEMOPTYSIS UNSPECIFIED 09/05/2012 RAIN MAY MD 786.30 HEMOPTYSIS UNSPECIFIED 09/05/2012 RODNEY LANDIN APRN 786.30 HEMOPTYSIS UNSPECIFIED 09/05/2012 PERICO BARBOUR, ADELINA Diaz 786.30 HEMOPTYSIS UNSPECIFIED 09/05/2012 RAIN MAY MD 786.30 HEMOPTYSIS UNSPECIFIED 09/05/2012 RAIN MAY MD 786.30 HEMOPTYSIS UNSPECIFIED 09/05/2012 YADIRA DAN, RAIN 786.30 HEMOPTYSIS UNSPECIFIED 09/05/2012 YADIRA DAN, RAIN 786.30 HEMOPTYSIS UNSPECIFIED 09/05/2012 MARTIN BARBOUR, ELDER Sims 786.30 HEMOPTYSIS UNSPECIFIED 09/05/2012 YADIRA DAN, ARIN 786.30 HEMOPTYSIS UNSPECIFIED 09/05/2012 YADIRA DAN, RAIN 786.30 HEMOPTYSIS UNSPECIFIED 09/05/2012 YADIRA DAN, RAIN 786.30 HEMOPTYSIS UNSPECIFIED 09/05/2012 MARTIN BARBOUR, ELDER Smis 786.30 HEMOPTYSIS UNSPECIFIED 09/05/2012 YADIRA DAN, RAIN 786.30 HEMOPTYSIS UNSPECIFIED 09/05/2012 786.30 HEMOPTYSIS UNSPECIFIED 09/05/2012 YADIRA DAN, RAIN 786.30 HEMOPTYSIS UNSPECIFIED 09/05/2012 DWAIN BARBOUR, JAHAIRA 786.30 HEMOPTYSIS UNSPECIFIED 09/05/2012 YADIRA DAN, RAIN 786.30 HEMOPTYSIS UNSPECIFIED 09/05/2012 JOSUÉ CANELA, LUIS WHEELER 786.30 HEMOPTYSIS UNSPECIFIED 09/05/2012 MATRIN BARBOUR, ELDER Sims 786.30 HEMOPTYSIS UNSPECIFIED 09/05/2012 YADIRA DAN, RAIN 786.30 HEMOPTYSIS UNSPECIFIED 09/05/2012 YADIRA DAN, RAIN 786.30 HEMOPTYSIS UNSPECIFIED 09/05/2012 YADIRA DAN, RAIN 786.30 HEMOPTYSIS UNSPECIFIED 09/05/2012 RAIN MAY MD 786.30 HEMOPTYSIS UNSPECIFIED 09/05/2012 RAIN MAY MD 786.30 HEMOPTYSIS UNSPECIFIED 09/05/2012 DEMETRA NATIONAL BUSINESS DIRECTOR, GAURAV 786.30 HEMOPTYSIS UNSPECIFIED 09/05/2012 RAIN MAY MD 786.30 HEMOPTYSIS UNSPECIFIED 09/05/2012 RAIN MAY MD 786.30 HEMOPTYSIS UNSPECIFIED 09/05/2012 DEMETRA NATIONAL BUSINESS DIRECTOR, GAURAV 786.30 HEMOPTYSIS UNSPECIFIED 09/05/2012 DEMETRA CANELA, GAURAV 786.30 HEMOPTYSIS UNSPECIFIED 11/17/2012 HEAVEN SCHAEFFER APRN N 296.64 MO BIPOLAR I MIXED W PSYCHOTIC BEHAVIOR 11/17/2012 HEAVEN SCHAEFFER APRN N 296.64 MO BIPOLAR I MIXED W PSYCHOTIC BEHAVIOR 11/17/2012 RAIN MAY MD 296.64 MO BIPOLAR I MIXED W PSYCHOTIC BEHAVIOR 11/17/2012 RAIN MAY MD 296.64 MO BIPOLAR I MIXED W PSYCHOTIC BEHAVIOR 11/17/2012 RAIN MAY MD 296.64 MO BIPOLAR I MIXED W PSYCHOTIC BEHAVIOR 11/17/2012 RAIN MAY MD 296.64 MO BIPOLAR I MIXED W PSYCHOTIC BEHAVIOR 11/17/2012 RODNEY LANDIN APRN S 296.64 MO BIPOLAR I MIXED W PSYCHOTIC BEHAVIOR 11/17/2012 ADELINA RIVER DDS 296.64 MO BIPOLAR I MIXED W PSYCHOTIC BEHAVIOR 11/17/2012 RAIN MAY MD 296.64 MO BIPOLAR I MIXED W PSYCHOTIC BEHAVIOR 11/17/2012 RAIN MAY MD 296.64 MO BIPOLAR I MIXED W PSYCHOTIC BEHAVIOR 11/17/2012 RAIN MAY MD 296.64 MO BIPOLAR I MIXED W PSYCHOTIC BEHAVIOR 11/17/2012 RAIN MAY MD 296.64 MO BIPOLAR I MIXED W PSYCHOTIC BEHAVIOR 11/17/2012 ELDER SALAZAR DDS 296.64 MO BIPOLAR I MIXED W PSYCHOTIC BEHAVIOR 11/17/2012 RAIN MAY MD 296.64 MO BIPOLAR I MIXED W PSYCHOTIC BEHAVIOR 11/17/2012 RAIN MAY MD 296.64 MO BIPOLAR I MIXED W PSYCHOTIC BEHAVIOR 11/17/2012 RAIN MAY MD 296.64 MO BIPOLAR I MIXED W PSYCHOTIC BEHAVIOR 11/17/2012 MARTIN RAMIRESSELDER J 296.64 MO BIPOLAR I MIXED W PSYCHOTIC BEHAVIOR 11/17/2012 RAIN MAY MD 296.64 MO BIPOLAR I MIXED W PSYCHOTIC BEHAVIOR 11/17/2012 296.64 MO BIPOLAR I MIXED W PSYCHOTIC BEHAVIOR 11/17/2012 RAIN MAY MD 296.64 MO BIPOLAR I MIXED W PSYCHOTIC BEHAVIOR 11/17/2012 JAHAIRA PRAKASH DDS 296.64 MO BIPOLAR I MIXED W PSYCHOTIC BEHAVIOR 11/17/2012 RAIN MAY MD 296.64 MO BIPOLAR I MIXED W PSYCHOTIC BEHAVIOR 11/17/2012 JOSUÉ CANELA LUIS WHEELER 296.64 MO BIPOLAR I MIXED W PSYCHOTIC BEHAVIOR 11/17/2012 MARTIN RAMIRESSELDER J 296.64 MO BIPOLAR I MIXED W PSYCHOTIC BEHAVIOR 11/17/2012 RAIN MAY MD 296.64 MO BIPOLAR I MIXED W PSYCHOTIC BEHAVIOR 11/17/2012 RAIN MAY MD 296.64 MO BIPOLAR I MIXED W PSYCHOTIC BEHAVIOR 11/17/2012 RAIN MAY MD 296.64 MO BIPOLAR I MIXED W PSYCHOTIC BEHAVIOR 11/17/2012 RAIN MAY MD 296.64 MO BIPOLAR I MIXED W PSYCHOTIC BEHAVIOR 11/17/2012 RAIN MAY MD 296.64 MO BIPOLAR I MIXED W PSYCHOTIC BEHAVIOR 11/17/2012 DEMETRA NATIONAL BUSINESS DIRECTOR, GAURAV 296.64 MO BIPOLAR I MIXED W PSYCHOTIC BEHAVIOR 11/17/2012 RAIN MAY MD 296.64 MO BIPOLAR I MIXED W PSYCHOTIC BEHAVIOR 11/17/2012 RAIN MAY MD 296.64 MO BIPOLAR I MIXED W PSYCHOTIC BEHAVIOR 11/17/2012 DEMETRA NATIONAL BUSINESS DIRECTOR, GAURAV 296.64 MO BIPOLAR I MIXED W PSYCHOTIC BEHAVIOR 11/17/2012 DEMETRA NATIONAL BUSINESS DIRECTOR, GAURAV 296.64 MO BIPOLAR I MIXED W PSYCHOTIC BEHAVIOR 11/27/2012 KAILEE CARBONE APRN, HEAVEN N 296.64 MO BIPOLAR I MIXED W PSYCHOTIC BEHAVIOR 11/27/2012 KAILEE CARBONE APRN HEAVEN N V01.79 CONTACT WITH OR EXPOSURE TO OTHER VIRAL DISEASES 11/27/2012 KAILEE CARBONE APRN, HEAVEN N V69.2 HIGH-RISK SEXUAL BEHAVIOR 11/27/2012 TOBIAS SCHAEFFER APRNCY N 296.64 MO BIPOLAR I MIXED W PSYCHOTIC BEHAVIOR 11/27/2012 KAILEE CARBONE APRN HEAVEN N V01.79 CONTACT WITH OR EXPOSURE TO OTHER VIRAL DISEASES 11/27/2012 TOBIAS SCHAEFFER APRNCY N V69.2 HIGH-RISK SEXUAL BEHAVIOR 11/27/2012 RAIN MAY MD 296.64 MO BIPOLAR I MIXED W PSYCHOTIC BEHAVIOR 11/27/2012 RAIN MAY MD V01.79 CONTACT WITH OR EXPOSURE TO OTHER VIRAL DISEASES 11/27/2012 RAIN MAY MD V69.2 HIGH-RISK SEXUAL BEHAVIOR 11/27/2012 RAIN MAY MD 296.64 MO BIPOLAR I MIXED W PSYCHOTIC BEHAVIOR 11/27/2012 RAIN MAY MD V01.79 CONTACT WITH OR EXPOSURE TO OTHER VIRAL DISEASES 11/27/2012 RAIN MAY MD V69.2 HIGH-RISK SEXUAL BEHAVIOR 11/27/2012 RAIN MAY MD 296.64 MO BIPOLAR I MIXED W PSYCHOTIC BEHAVIOR 11/27/2012 RAIN MAY MD V01.79 CONTACT WITH OR EXPOSURE TO OTHER VIRAL DISEASES 11/27/2012 RAIN MAY MD V69.2 HIGH-RISK SEXUAL BEHAVIOR 11/27/2012 RAIN MAY MD 296.64 MO BIPOLAR I MIXED W PSYCHOTIC BEHAVIOR 11/27/2012 RAIN MAY MD V01.79 CONTACT WITH OR EXPOSURE TO OTHER VIRAL DISEASES 11/27/2012 RAIN MAY MD V69.2 HIGH-RISK SEXUAL BEHAVIOR 11/27/2012 RODNEY LANDIN APRN S 296.64 MO BIPOLAR I MIXED W PSYCHOTIC BEHAVIOR 11/27/2012 [employer] NATIONAL BUSINESS DIRECTOR, RODNEY S V01.79 CONTACT WITH OR EXPOSURE TO OTHER VIRAL DISEASES 11/27/2012 MUSHT[employer] CANELA, RODNEY S V69.2 HIGH-RISK SEXUAL BEHAVIOR 11/27/2012 PERICO BARBOUR, ADELINA Diaz 296.64 MO BIPOLAR I MIXED W PSYCHOTIC BEHAVIOR 11/27/2012 ADELINA RIVER DDS V01.79 CONTACT WITH OR EXPOSURE TO OTHER VIRAL DISEASES 11/27/2012 ADELINA RIVER DDS V69.2 HIGH-RISK SEXUAL BEHAVIOR 11/27/2012 RAIN MAY MD 296.64 MO BIPOLAR I MIXED W PSYCHOTIC BEHAVIOR 11/27/2012 RAIN MAY MD V01.79 CONTACT WITH OR EXPOSURE TO OTHER VIRAL DISEASES 11/27/2012 RAIN MAY MD V69.2 HIGH-RISK SEXUAL BEHAVIOR 11/27/2012 RAIN MAY MD 296.64 MO BIPOLAR I MIXED W PSYCHOTIC BEHAVIOR 11/27/2012 RAIN MAY MD V01.79 CONTACT WITH OR EXPOSURE TO OTHER VIRAL DISEASES 11/27/2012 RAIN MAY MD V69.2 HIGH-RISK SEXUAL BEHAVIOR 11/27/2012 RAIN MAY MD 296.64 MO BIPOLAR I MIXED W PSYCHOTIC BEHAVIOR 11/27/2012 RAIN MAY MD V01.79 CONTACT WITH OR EXPOSURE TO OTHER VIRAL DISEASES 11/27/2012 RAIN MAY MD V69.2 HIGH-RISK SEXUAL BEHAVIOR 11/27/2012 RAIN MAY MD 296.64 MO BIPOLAR I MIXED W PSYCHOTIC BEHAVIOR 11/27/2012 RAIN MAY MD V01.79 CONTACT WITH OR EXPOSURE TO OTHER VIRAL DISEASES 11/27/2012 RAIN MAY MD V69.2 HIGH-RISK SEXUAL BEHAVIOR 11/27/2012 MARTIN DDS, ELDER J 296.64 MO BIPOLAR I MIXED W PSYCHOTIC BEHAVIOR 11/27/2012 WHITE DDS, ELDER J V01.79 CONTACT WITH OR EXPOSURE TO OTHER VIRAL DISEASES 11/27/2012 WHITE DDS, ELDER J V69.2 HIGH-RISK SEXUAL BEHAVIOR 11/27/2012 RAIN MAY MD 296.64 MO BIPOLAR I MIXED W PSYCHOTIC BEHAVIOR 11/27/2012 RAIN MAY MD V01.79 CONTACT WITH OR EXPOSURE TO OTHER VIRAL DISEASES 11/27/2012 RAIN MAY MD V69.2 HIGH-RISK SEXUAL BEHAVIOR 11/27/2012 RAIN MAY MD 296.64 MO BIPOLAR I MIXED W PSYCHOTIC BEHAVIOR 11/27/2012 RAIN MAY MD V01.79 CONTACT WITH OR EXPOSURE TO OTHER VIRAL DISEASES 11/27/2012 RAIN MAY MD V69.2 HIGH-RISK SEXUAL BEHAVIOR 11/27/2012 RAIN MAY MD 296.64 MO BIPOLAR I MIXED W PSYCHOTIC BEHAVIOR 11/27/2012 RAIN MAY MD V01.79 CONTACT WITH OR EXPOSURE TO OTHER VIRAL DISEASES 11/27/2012 RAIN MAY MD V69.2 HIGH-RISK SEXUAL BEHAVIOR 11/27/2012 MARTIN DDSELDER 296.64 MO BIPOLAR I MIXED W PSYCHOTIC BEHAVIOR 11/27/2012 MARTIN DDSELDER V01.79 CONTACT WITH OR EXPOSURE TO OTHER VIRAL DISEASES 11/27/2012 MARTIN RAMIRESSELDER V69.2 HIGH-RISK SEXUAL BEHAVIOR 11/27/2012 RAIN MAY MD 296.64 MO BIPOLAR I MIXED W PSYCHOTIC BEHAVIOR 11/27/2012 RAIN MAY MD V01.79 CONTACT WITH OR EXPOSURE TO OTHER VIRAL DISEASES 11/27/2012 RAIN MAY MD V69.2 HIGH-RISK SEXUAL BEHAVIOR 11/27/2012 296.64 MO BIPOLAR I MIXED W PSYCHOTIC BEHAVIOR 11/27/2012 V01.79 CONTACT WITH OR EXPOSURE TO OTHER VIRAL DISEASES 11/27/2012 V69.2 HIGH-RISK SEXUAL BEHAVIOR 11/27/2012 RAIN MAY MD 296.64 MO BIPOLAR I MIXED W PSYCHOTIC BEHAVIOR 11/27/2012 RAIN MAY MD V01.79 CONTACT WITH OR EXPOSURE TO OTHER VIRAL DISEASES 11/27/2012 RAIN MAY MD V69.2 HIGH-RISK SEXUAL BEHAVIOR 11/27/2012 DWAIN DDS, JAHAIRA 296.64 MO BIPOLAR I MIXED W PSYCHOTIC BEHAVIOR 11/27/2012 DWAIN RAMIRESSJAHAIRA V01.79 CONTACT WITH OR EXPOSURE TO OTHER VIRAL DISEASES 11/27/2012 DWAIN RAMIRESS, JAHAIRA V69.2 HIGH-RISK SEXUAL BEHAVIOR 11/27/2012 RAIN MAY MD 296.64 MO BIPOLAR I MIXED W PSYCHOTIC BEHAVIOR 11/27/2012 RAIN MAY MD V01.79 CONTACT WITH OR EXPOSURE TO OTHER VIRAL DISEASES 11/27/2012 RAIN MAY MD V69.2 HIGH-RISK SEXUAL BEHAVIOR 11/27/2012 JOSUÉ CANELA LUIS LIAM 296.64 MO BIPOLAR I MIXED W PSYCHOTIC BEHAVIOR 11/27/2012 JOSUÉ CANELA LUIS LIAM V01.79 CONTACT WITH OR EXPOSURE TO OTHER VIRAL DISEASES 11/27/2012 JOSUÉ CANELA LUIS LIAM V69.2 HIGH-RISK SEXUAL BEHAVIOR 11/27/2012 MARTIN RAMIRESSELDER 296.64 MO BIPOLAR I MIXED W PSYCHOTIC BEHAVIOR 11/27/2012 WHITE DDSELDER V01.79 CONTACT WITH OR EXPOSURE TO OTHER VIRAL DISEASES 11/27/2012 WHITE DDS, ELDER Bethany V69.2 HIGH-RISK SEXUAL BEHAVIOR 11/27/2012 RAIN MAY MD 296.64 MO BIPOLAR I MIXED W PSYCHOTIC BEHAVIOR 11/27/2012 RAIN MAY MD V01.79 CONTACT WITH OR EXPOSURE TO OTHER VIRAL DISEASES 11/27/2012 RAIN MAY MD V69.2 HIGH-RISK SEXUAL BEHAVIOR 11/27/2012 RAIN MAY MD 296.64 MO BIPOLAR I MIXED W PSYCHOTIC BEHAVIOR 11/27/2012 RAIN MAY MD V01.79 CONTACT WITH OR EXPOSURE TO OTHER VIRAL DISEASES 11/27/2012 RAIN MAY MD V69.2 HIGH-RISK SEXUAL BEHAVIOR 11/27/2012 RAIN MAY MD 296.64 MO BIPOLAR I MIXED W PSYCHOTIC BEHAVIOR 11/27/2012 RAIN MAY MD V01.79 CONTACT WITH OR EXPOSURE TO OTHER VIRAL DISEASES 11/27/2012 RAIN MAY MD V69.2 HIGH-RISK SEXUAL BEHAVIOR 11/27/2012 RAIN MAY MD 296.64 MO BIPOLAR I MIXED W PSYCHOTIC BEHAVIOR 11/27/2012 RAIN MAY MD V01.79 CONTACT WITH OR EXPOSURE TO OTHER VIRAL DISEASES 11/27/2012 RAIN MAY MD V69.2 HIGH-RISK SEXUAL BEHAVIOR 11/27/2012 RAIN MAY MD 296.64 MO BIPOLAR I MIXED W PSYCHOTIC BEHAVIOR 11/27/2012 RAIN MAY MD V01.79 CONTACT WITH OR EXPOSURE TO OTHER VIRAL DISEASES 11/27/2012 RAIN MAY MD V69.2 HIGH-RISK SEXUAL BEHAVIOR 11/27/2012 DEMETRA NATIONAL BUSINESS DIRECTOR, GAURAV 296.64 MO BIPOLAR I MIXED W PSYCHOTIC BEHAVIOR 11/27/2012 DEMETRA NATIONAL BUSINESS DIRECTOR, GAURAV V01.79 CONTACT WITH OR EXPOSURE TO OTHER VIRAL DISEASES 11/27/2012 DEMETRA CANELA GAURAV V69.2 HIGH-RISK SEXUAL BEHAVIOR 11/27/2012 RAIN MAY MD 296.64 MO BIPOLAR I MIXED W PSYCHOTIC BEHAVIOR 11/27/2012 RAIN MAY MD V01.79 CONTACT WITH OR EXPOSURE TO OTHER VIRAL DISEASES 11/27/2012 RAIN MAY MD V69.2 HIGH-RISK SEXUAL BEHAVIOR 11/27/2012 RAIN MAY MD 296.64 MO BIPOLAR I MIXED W PSYCHOTIC BEHAVIOR 11/27/2012 RAIN MAY MD V01.79 CONTACT WITH OR EXPOSURE TO OTHER VIRAL DISEASES 11/27/2012 RAIN MAY MD V69.2 HIGH-RISK SEXUAL BEHAVIOR 11/27/2012 DEMETRA NATIONAL BUSINESS DIRECTOR, GAURAV 296.64 MO BIPOLAR I MIXED W PSYCHOTIC BEHAVIOR 11/27/2012 DEMETRA NATIONAL BUSINESS DIRECTOR, GAURAV V01.79 CONTACT WITH OR EXPOSURE TO OTHER VIRAL DISEASES 11/27/2012 DEMETRA CANELA GAURAV V69.2 HIGH-RISK SEXUAL BEHAVIOR 11/27/2012 DEMETRA NATIONAL BUSINESS DIRECTOR, GAURAV 296.64 MO BIPOLAR I MIXED W PSYCHOTIC BEHAVIOR 11/27/2012 DEMETRA NATIONAL BUSINESS DIRECTOR, GAURAV V01.79 CONTACT WITH OR EXPOSURE TO OTHER VIRAL DISEASES 11/27/2012 DEMETRA NATIONAL BUSINESS DIRECTOR, GAURAV V69.2 HIGH-RISK SEXUAL BEHAVIOR 03/09/2013 RODNEY LANDIN APRN 381.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 03/09/2013 ADELINA RIVER DDS 381.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 03/09/2013 RAIN MAY MD 381.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 03/09/2013 RAIN MAY MD 381.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 03/09/2013 RAIN MAY MD 381.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 03/09/2013 RAIN MAY MD 381.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 03/09/2013 ELDER SALAZAR DDS 381.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 03/09/2013 RAIN MAY MD 381.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 03/09/2013 RAIN MAY MD 381.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 03/09/2013 RAIN MAY MD 381.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 03/09/2013 MARTIN BARBOUR, ELDER J 381.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 03/09/2013 RAIN MAY MD 381.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 03/09/2013 381.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 03/09/2013 RAIN MAY MD 381.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 03/09/2013 JAHAIRA PRAKASH DDS 381.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 03/09/2013 RAIN MAY MD 381.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 03/09/2013 JOSUÉ CANELA LUIS WHEELER 381.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 03/09/2013 ELDER SALAZAR DDS 381.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 03/09/2013 RAIN MAY MD 381.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 03/09/2013 RAIN MAY MD 381.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 03/09/2013 RAIN MAY MD 381.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 03/09/2013 RAIN MAY MD 381.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 03/09/2013 RAIN MAY MD 381.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 03/09/2013 GAURAV MCCRARY APRN 381.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 03/09/2013 RAIN MAY MD 381.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 03/09/2013 RAIN MAY MD 381.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 03/09/2013 DEMETRA CANELA GAURAV 381.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 03/09/2013 DEMETRA CANELA GAURAV 381.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 03/28/2013 YUNI DAN, FRANCO Barbosa Ot 250.02 DIAB BHUMI WO COMPL, TYPE II OR UNSPEC TY 03/28/2013 YUNI DAN, FRANCO Barbosa Ot 780.4 DIZZINESS AND GIDDINESS 03/28/2013 LANDON DAN, OLGA Escoto Ot 250.02 DIAB BHUMI WO COMPL, TYPE II OR UNSPEC TY 03/28/2013 LANDON DAN, OLGA Escoto Ot 780.4 DIZZINESS AND GIDDINESS 03/30/2013 RAIN MAY MD 250.02 DIABETES MELLITUS WITHOUT MENTION OF COMPLICATION TYPE II OR UNSPECIFIED TYPE UNCONTROLLED 03/30/2013 RAIN MAY MD V04.81 FLU SHOT 03/30/2013 RAIN MAY MD V76.10 BREAST CANCER SCREENING 03/30/2013 RAIN MAY MD 250.02 DIABETES MELLITUS WITHOUT MENTION OF COMPLICATION TYPE II OR UNSPECIFIED TYPE UNCONTROLLED 03/30/2013 RAIN MAY MD V04.81 FLU SHOT 03/30/2013 RAIN MAY MD V76.10 BREAST CANCER SCREENING 03/30/2013 RAIN MAY MD 250.02 DIABETES MELLITUS WITHOUT MENTION OF COMPLICATION TYPE II OR UNSPECIFIED TYPE UNCONTROLLED 03/30/2013 RAIN MAY MD V04.81 FLU SHOT 03/30/2013 RAIN MAY MD V76.10 BREAST CANCER SCREENING 03/30/2013 RAIN MAY MD 250.02 DIABETES MELLITUS WITHOUT MENTION OF COMPLICATION TYPE II OR UNSPECIFIED TYPE UNCONTROLLED 03/30/2013 RAIN MAY MD V04.81 FLU SHOT 03/30/2013 RAIN MAY MD V76.10 BREAST CANCER SCREENING 03/30/2013 ELDER SALAZAR DDS 250.02 DIABETES MELLITUS WITHOUT MENTION OF COMPLICATION TYPE II OR UNSPECIFIED TYPE UNCONTROLLED 03/30/2013 ELDER SALAZAR DDS V04.81 FLU SHOT 03/30/2013 ELDER SALAZAR DDS V76.10 BREAST CANCER SCREENING 03/30/2013 RAIN MAY MD 250.02 DIABETES MELLITUS WITHOUT MENTION OF COMPLICATION TYPE II OR UNSPECIFIED TYPE UNCONTROLLED 03/30/2013 RAIN MAY MD V04.81 FLU SHOT 03/30/2013 RAIN MAY MD V76.10 BREAST CANCER SCREENING 03/30/2013 RAIN MAY MD 250.02 DIABETES MELLITUS WITHOUT MENTION OF COMPLICATION TYPE II OR UNSPECIFIED TYPE UNCONTROLLED 03/30/2013 RAIN MAY MD V04.81 FLU SHOT 03/30/2013 RAIN MAY MD V76.10 BREAST CANCER SCREENING 03/30/2013 RAIN MAY MD 250.02 DIABETES MELLITUS WITHOUT MENTION OF COMPLICATION TYPE II OR UNSPECIFIED TYPE UNCONTROLLED 03/30/2013 RAIN MAY MD V04.81 FLU SHOT 03/30/2013 RAIN MAY MD V76.10 BREAST CANCER SCREENING 03/30/2013 WHITE DDS, ELDER J 250.02 DIABETES MELLITUS WITHOUT MENTION OF COMPLICATION TYPE II OR UNSPECIFIED TYPE UNCONTROLLED 03/30/2013 WHITE DDS, ELDER J V04.81 FLU SHOT 03/30/2013 WHITE DDS, ELDER Sims V76.10 BREAST CANCER SCREENING 03/30/2013 RAIN MAY MD 250.02 DIABETES MELLITUS WITHOUT MENTION OF COMPLICATION TYPE II OR UNSPECIFIED TYPE UNCONTROLLED 03/30/2013 RAIN MAY MD V04.81 FLU SHOT 03/30/2013 RAIN MAY MD V76.10 BREAST CANCER SCREENING 03/30/2013 250.02 DIABETES MELLITUS WITHOUT MENTION OF COMPLICATION TYPE II OR UNSPECIFIED TYPE UNCONTROLLED 03/30/2013 V04.81 FLU SHOT 03/30/2013 V76.10 BREAST CANCER SCREENING 03/30/2013 RAIN MAY MD 250.02 DIABETES MELLITUS WITHOUT MENTION OF COMPLICATION TYPE II OR UNSPECIFIED TYPE UNCONTROLLED 03/30/2013 RAIN MAY MD V04.81 FLU SHOT 03/30/2013 RAIN MAY MD V76.10 BREAST CANCER SCREENING 03/30/2013 JAHAIRA PRAKASH DDS 250.02 DIABETES MELLITUS WITHOUT MENTION OF COMPLICATION TYPE II OR UNSPECIFIED TYPE UNCONTROLLED 03/30/2013 JAHAIRA PRAKASH DDS V04.81 FLU SHOT 03/30/2013 JAHAIRA PRAKASH DDS V76.10 BREAST CANCER SCREENING 03/30/2013 RAIN MAY MD 250.02 DIABETES MELLITUS WITHOUT MENTION OF COMPLICATION TYPE II OR UNSPECIFIED TYPE UNCONTROLLED 03/30/2013 RAIN MAY MD V04.81 FLU SHOT 03/30/2013 RAIN MAY MD V76.10 BREAST CANCER SCREENING 03/30/2013 LUIS MOSES APRN 250.02 DIABETES MELLITUS WITHOUT MENTION OF COMPLICATION TYPE II OR UNSPECIFIED TYPE UNCONTROLLED 03/30/2013 LUIS MOSES APRN V04.81 FLU SHOT 03/30/2013 JOSUÉ CASTANEDAN, LUIS WHEELER V76.10 BREAST CANCER SCREENING 03/30/2013 WHITE DDS, ELDER Sims 250.02 DIABETES MELLITUS WITHOUT MENTION OF COMPLICATION TYPE II OR UNSPECIFIED TYPE UNCONTROLLED 03/30/2013 WHITE DDS, ELDER J V04.81 FLU SHOT 03/30/2013 WHITE DDSELDER V76.10 BREAST CANCER SCREENING 03/30/2013 YADIRA DAN, RAIN 250.02 DIABETES MELLITUS WITHOUT MENTION OF COMPLICATION TYPE II OR UNSPECIFIED TYPE UNCONTROLLED 03/30/2013 YADIRA DAN, RAIN V04.81 FLU SHOT 03/30/2013 YADIRA DAN, RAIN V76.10 BREAST CANCER SCREENING 03/30/2013 RAIN MAY MD 250.02 DIABETES MELLITUS WITHOUT MENTION OF COMPLICATION TYPE II OR UNSPECIFIED TYPE UNCONTROLLED 03/30/2013 YADIRA DAN, RAIN V04.81 FLU SHOT 03/30/2013 YADIRA DAN, RAIN V76.10 BREAST CANCER SCREENING 03/30/2013 RAIN MAY MD 250.02 DIABETES MELLITUS WITHOUT MENTION OF COMPLICATION TYPE II OR UNSPECIFIED TYPE UNCONTROLLED 03/30/2013 YADIRA DAN, RAIN V04.81 FLU SHOT 03/30/2013 RAIN MAY MD V76.10 BREAST CANCER SCREENING 03/30/2013 RAIN MAY MD 250.02 DIABETES MELLITUS WITHOUT MENTION OF COMPLICATION TYPE II OR UNSPECIFIED TYPE UNCONTROLLED 03/30/2013 YADIRA DAN, RAIN V04.81 FLU SHOT 03/30/2013 YADIRA DAN, RAIN V76.10 BREAST CANCER SCREENING 03/30/2013 RAIN MAY MD 250.02 DIABETES MELLITUS WITHOUT MENTION OF COMPLICATION TYPE II OR UNSPECIFIED TYPE UNCONTROLLED 03/30/2013 RAIN MAY MD V04.81 FLU SHOT 03/30/2013 YADIRA DAN, RAIN V76.10 BREAST CANCER SCREENING 03/30/2013 GAURAV MCCRARY APRN 250.02 DIABETES MELLITUS WITHOUT MENTION OF COMPLICATION TYPE II OR UNSPECIFIED TYPE UNCONTROLLED 03/30/2013 DEMETRA NATIONAL BUSINESS DIRECTORGAURAV Cruz V04.81 FLU SHOT 03/30/2013 DEMETRA NATIONAL BUSINESS DIRECTORGAURAV Cruz V76.10 BREAST CANCER SCREENING 03/30/2013 RAIN MAY MD 250.02 DIABETES MELLITUS WITHOUT MENTION OF COMPLICATION TYPE II OR UNSPECIFIED TYPE UNCONTROLLED 03/30/2013 RAIN MAY MD V04.81 FLU SHOT 03/30/2013 RAIN MAY MD V76.10 BREAST CANCER SCREENING 03/30/2013 RAIN MAY MD 250.02 DIABETES MELLITUS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 blood basophils/100 leukocytes 0 % 0-10 Blood neutrophils automated count (number/volume) 6.1 10*3 1.8-7.8 Blood lymphocytes automated count (number/volume) 3.4 10*3 1.0-4.0 Blood monocytes automated count (number/volume) 0.9 10*3 0.0-1.0 Automated eosinophil count 0.3 10*3/uL 0.0-0.3 Automated blood basophil count (count/volume) 0.0 10*3/uL 0.0-0.1 Complete urinalysis with reflex to culture - 01/25/16 11:00 Urine color determination YELLOW NRG Urine clarity determination SLIGHTLY CLOUDY NRG Urine pH measurement by test strip 5 5- 9 Specific gravity of urine by test strip 1.010 1.016-1.022 Urine protein assay by test strip, semi-quantitative NEGATIVE NEGATIVE Urine glucose detection by automated test strip NEGATIVE NEGATIVE Erythrocytes detection in urine sediment by light microscopy 2+ NEGATIVE Urine ketones detection by automated test strip NEGATIVE NEGATIVE Urine nitrite detection by test strip NEGATIVE NEGATIVE Urine total bilirubin detection by test strip NEGATIVE NEGATIVE Urine urobilinogen measurement by automated test strip (mass/volume) NORMAL NORMAL Urine leukocyte esterase detection by dipstick 1+ NEGATIVE Automated urine sediment erythrocyte count by microscopy (number/high power field) NONE NRG Automated urine sediment leukocyte count by microscopy (number/high power field ) [HPF] NRG Bacteria detection in urine sediment by light microscopy TRACE NRG Squamous epithelial cells detection in urine sediment by light microscopy 5-10 NRG Crystals detection in urine sediment by light microscopy NONE NRG Casts detection in urine sediment by light microscopy NONE NRG Mucus detection in urine sediment by light microscopy NEGATIVE NRG Complete urinalysis with reflex to culture NO NRG Complete blood count (CBC) with automated white blood cell (WBC) differential - 05/16/16 21:56 Blood leukocytes automated count (number/volume) 12.2 10*3/ uL 4.3-11.0 Blood erythrocytes automated count (number/volume) 4.83 10*6 /uL 4.35-5.85 Venous blood hemoglobin measurement (mass/volume) 14.9 g/dL 11.5-16.0 Blood hematocrit (volume fraction) 43 % 35-52 Automated erythrocyte mean corpuscular volume 88 [foz_us] 80-99 Automated erythrocyte mean corpuscular hemoglobin (mass per erythrocyte) 31 pg 25-34 Automated erythrocyte mean corpuscular hemoglobin concentration measurement ( mass/volume) 35 g/dL 32-36 Automated erythrocyte distribution width ratio 13.1 % 10.0-14.5 Automated blood platelet count (count/volume) 231 10*3/uL 130-400 Automated blood platelet mean volume measurement 10.5 [foz_ us] 7.4-10.4 Automated blood neutrophils/100 leukocytes 52 % 42-75 Automated blood lymphocytes/100 leukocytes 38 % 12-44 Blood monocytes/100 leukocytes 8 % 0-12 Automated blood eosinophils/100 leukocytes 2 % 0-10 Automated blood basophils/100 leukocytes 0 % 0-10 Blood neutrophils automated count (number/volume) 6.3 10*3 1.8-7.8 Blood lymphocytes automated count (number/volume) 4.6 10*3 1.0-4.0 Blood monocytes automated count (number/volume) 1.0 10*3 0.0-1.0 Automated eosinophil count 0.3 10*3/uL 0.0-0.3 Automated blood basophil count (count/volume) 0.0 10*3/uL 0.0-0.1 Comprehensive metabolic panel - 05/16/16 21:56 Serum or plasma sodium measurement (moles/volume) 138 mmol/ L 135-145 Serum or plasma potassium measurement (moles/volume) 4.0 mmol/L 3.6-5.0 Serum or plasma chloride measurement (moles/volume) 105 mmol /L 98-107 Carbon dioxide 21 mmol/L 21-32 Serum or plasma anion gap determination (moles/volume) 12 mmol/L 5-14 Serum or plasma urea nitrogen measurement (mass/volume) 16 mg/dL 7-18 Serum or plasma creatinine measurement (mass/volume) 0.77 mg /dL 0.60-1.30 Serum or plasma urea nitrogen/creatinine mass ratio 21 NRG Serum or plasma creatinine measurement with calculation of estimated glomerular filtration rate > NRG Serum or plasma glucose measurement (mass/volume) 240 mg/dL 70-105 Serum or plasma calcium measurement (mass/volume) 9.2 mg/dL 8.5-10.1 Serum or plasma total bilirubin measurement (mass/volume) 0.3 mg/dL 0.1-1.0 Serum or plasma alkaline phosphatase measurement (enzymatic activity/volume) 76 U/L 40-136 Serum or plasma aspartate aminotransferase measurement (enzymatic activity/ volume) 15 U/L 5-34 Serum or plasma alanine aminotransferase measurement (enzymatic activity/volume ) 19 U/L 0-55 Serum or plasma protein measurement (mass/volume) 6.9 g/dL 6.4-8.2 Serum or plasma albumin measurement (mass/volume) 3.9 g/dL 3.2-4.5 Magnesium - 05/16/16 21:56 Magnesium 1.8 mg/dL 1.8-2.4 Serum or plasma thyrotropin measurement by detection limit <=0.05 miu/l (units/ volume) - 05/16/16 21:56 Serum or plasma thyrotropin measurement by detection limit <=0.05 miu/l (units/ volume) 4.32 u[iU]/mL 0.35-4.94 Serum or plasma salicylates measurement (mass/volume) - 05/16/16 21:56 Serum or plasma salicylates measurement (mass/volume) < mg/ dL 5.0-20.0 Serum or plasma acetaminophen measurement (mass/volume) - 05/16/16 21:56 Serum or plasma acetaminophen measurement (mass/volume) < ug /mL 10-30 Serum or plasma ethanol measurement (mass/volume) - 05/16/16 21:56 Serum or plasma ethanol measurement (mass/volume) < mg/dL <10 Complete urinalysis with reflex to culture - 05/16/16 22:03 Urine color determination YELLOW NRG Urine clarity determination CLEAR NRG Urine pH measurement by test strip 6 5- 9 Specific gravity of urine by test strip 1.010 1.016-1.022 Urine protein assay by test strip, semi-quantitative NEGATIVE NEGATIVE Urine glucose detection by automated test strip 1+ NEGATIVE Erythrocytes detection in urine sediment by light microscopy 2+ NEGATIVE Urine ketones detection by automated test strip NEGATIVE NEGATIVE Urine nitrite detection by test strip NEGATIVE NEGATIVE Urine total bilirubin detection by test strip NEGATIVE NEGATIVE Urine urobilinogen measurement by automated test strip (mass/volume) NORMAL NORMAL Urine leukocyte esterase detection by dipstick NEGATIVE NEGATIVE Automated urine sediment erythrocyte count by microscopy (number/high power field) NONE NRG Automated urine sediment leukocyte count by microscopy (number/high power field ) [HPF] NRG Bacteria detection in urine sediment by light microscopy NEGATIVE NRG Squamous epithelial cells detection in urine sediment by light microscopy 0-2 NRG Crystals detection in urine sediment by light microscopy NONE NRG Casts detection in urine sediment by light microscopy NONE NRG Mucus detection in urine sediment by light microscopy NEGATIVE NRG Complete urinalysis with reflex to culture NO NRG Urine drug screening test - 05/16/16 22:03 Urine phencyclidine detection by screening method NEGATIVE NEGATIVE Urine benzodiazepines detection by screening method NEGATIVE NEGATIVE Urine cocaine detection NEGATIVE NEGATIVE Urine amphetamines detection by screening method NEGATIVE NEGATIVE Urine methamphetamine detection by screening method NEGATIVE NEGATIVE Urine cannabinoids detection by screening method NEGATIVE NEGATIVE Urine opiates detection by screening method NEGATIVE NEGATIVE Urine barbiturates detection NEGATIVE NEGATIVE Screening urine tricyclic antidepressants detection NEGATIVE NEGATIVE Urine methadone detection by screening method NEGATIVE NEGATIVE Urine oxycodone detection NEGATIVE NEGATIVE Urine propoxyphene detection NEGATIVE NEGATIVE Complete blood count (CBC) with automated white blood cell (WBC) differential - 05/17/16 04:16 Blood leukocytes automated count (number/volume) 8.9 10*3/ uL 4.3-11.0 Blood erythrocytes automated count (number/volume) 4.78 10*6 /uL 4.35-5.85 Venous blood hemoglobin measurement (mass/volume) 14.6 g/dL 11.5-16.0 Blood hematocrit (volume fraction) 42 % 35-52 Automated erythrocyte mean corpuscular volume 89 [foz_us] 80-99 Automated erythrocyte mean corpuscular hemoglobin (mass per erythrocyte) 31 pg 25-34 Automated erythrocyte mean corpuscular hemoglobin concentration measurement ( mass/volume) 35 g/dL 32-36 Automated erythrocyte distribution width ratio 13.3 % 10.0-14.5 Automated blood platelet count (count/volume) 225 10*3/uL 130-400 Automated blood platelet mean volume measurement 10.5 [foz_ us] 7.4-10.4 Automated blood neutrophils/100 leukocytes 47 % 42-75 Automated blood lymphocytes/100 leukocytes 42 % 12-44 Blood monocytes/100 leukocytes 9 % 0-12 Automated blood eosinophils/100 leukocytes 2 % 0-10 Automated blood basophils/100 leukocytes 0 % 0-10 Blood neutrophils automated count (number/volume) 4.1 10*3 1.8-7.8 Blood lymphocytes automated count (number/volume) 3.7 10*3 1.0-4.0 Blood monocytes automated count (number/volume) 0.8 10*3 0.0-1.0 Automated eosinophil count 0.2 10*3/uL 0.0-0.3 Automated blood basophil count (count/volume) 0.0 10*3/uL 0.0-0.1 Comprehensive metabolic panel - 05/17/16 04:16 Serum or plasma sodium measurement (moles/volume) 140 mmol/ L 135-145 Serum or plasma potassium measurement (moles/volume) 4.0 mmol/L 3.6-5.0 Serum or plasma chloride measurement (moles/volume) 108 mmol /L 98-107 Carbon dioxide 21 mmol/L 21-32 Serum or plasma anion gap determination (moles/volume) 11 mmol/L 5-14 Serum or plasma urea nitrogen measurement (mass/volume) 13 mg/dL 7-18 Serum or plasma creatinine measurement (mass/volume) 0.70 mg /dL 0.60-1.30 Serum or plasma urea nitrogen/creatinine mass ratio 19 NRG Serum or plasma creatinine measurement with calculation of estimated glomerular filtration rate > NRG Serum or plasma glucose measurement (mass/volume) 226 mg/dL 70-105 Serum or plasma calcium measurement (mass/volume) 9.1 mg/dL 8.5-10.1 Serum or plasma total bilirubin measurement (mass/volume) 0.3 mg/dL 0.1-1.0 Serum or plasma alkaline phosphatase measurement (enzymatic activity/volume) 71 U/L 40-136 Serum or plasma aspartate aminotransferase measurement (enzymatic activity/ volume) 14 U/L 5-34 Serum or plasma alanine aminotransferase measurement (enzymatic activity/volume ) 18 U/L 0-55 Serum or plasma protein measurement (mass/volume) 6.8 g/dL 6.4-8.2 Serum or plasma albumin measurement (mass/volume) 3.8 g/dL 3.2-4.5 Serum or plasma phosphate measurement (mass/volume) - 05/17/16 04:16 Serum or plasma phosphate measurement (mass/volume) 4.3 mg/ dL 2.3-4.7 Magnesium - 05/17/16 04:16 Magnesium 1.7 mg/dL 1.8-2.4 Encounters ACCT No. Visit Date/Time Discharge Status Pt. Type Provider Facility Loc./Unit Complaint [id number] 06/18/2014 13:36:00 06/18/2014 23: 59:59 CLS Outpatient GAURAV MCCRARY APRN [id number] 06/18/2014 13:36:00 06/18/2014 23: 59:59 CLS Outpatient GAURAV MCCRARY APRN [id number] 05/18/2014 14:13:00 05/18/2014 23: 59:59 CLS Outpatient RAIN MAY MD [id number] 03/08/2014 10:30:00 03/08/2014 23: 59:59 CLS Outpatient RAIN MAY MD [id number] 02/23/2014 13:20:00 02/23/2014 23: 59:59 CLS Outpatient GAURAV MCCRARY APRN [id number] 02/19/2014 10:11:00 02/19/2014 23: 59:59 CLS Outpatient RAIN MAY MD [id number] 01/25/2014 10:57:00 01/25/2014 23: 59:59 CLS Outpatient RAIN MAY MD [id number] 01/25/2014 10:57:00 01/25/2014 23: 59:59 CLS Outpatient RAIN MAY MD [id number] 01/11/2014 11:32:00 01/11/2014 23: 59:59 CLS Outpatient RAIN MAY MD [id number] 12/28/2013 09:38:00 12/28/2013 23: 59:59 CLS Outpatient RAIN MAY MD [id number] 12/08/2013 09:19:00 12/08/2013 23: 59:59 CLS Outpatient ELDER SALAZAR DDS [id number] 11/05/2013 13:03:00 11/05/2013 23: 59:59 CLS Outpatient J[employer] DIRECT[employer]IS Cruz [id number] 10/26/2013 09:53:00 10/26/2013 23: 59:59 CLS Outpatient DWAIN BARBOURJAHAIRA [id number] 10/22/2013 09:13:00 10/22/2013 23: 59:59 CLS Outpatient RAIN MAY MD [id number] 10/22/2013 09:13:00 10/22/2013 23: 59:59 CLS Outpatient RAIN MAY MD [id number] 09/22/2013 11:39:00 09/22/2013 23: 59:59 CLS Outpatient [id number] 08/31/2013 09:47:00 08/31/2013 23: 59:59 CLS Outpatient RAIN MAY MD [id number] 07/29/2013 11:27:00 07/29/2013 23: 59:59 CLS Outpatient ELDER SALAZAR DDS [id number] 07/08/2013 08:35:00 07/08/2013 23: 59:59 CLS Outpatient RAIN MAY MD [id number] 07/07/2013 10:19:00 07/07/2013 23: 59:59 CLS Outpatient RAIN MAY MD [id number] 07/07/2013 10:19:00 07/07/2013 23: 59:59 CLS Outpatient RAIN MAY MD [id number] 06/30/2013 13:42:00 06/30/2013 23: 59:59 CLS Outpatient MARTIN BARBOURELDER Bethany [id number] 06/11/2013 09:08:00 06/11/2013 23: 59:59 CLS Outpatient RAIN MAY MD [id number] 05/12/2013 10:42:00 05/12/2013 23: 59:59 CLS Outpatient RAIN MAY MD [id number] 05/12/2013 10:42:00 05/12/2013 23: 59:59 CLS Outpatient RAIN MAY MD [id number] 03/30/2013 13:53:00 03/30/2013 23: 59:59 CLS Outpatient RAIN MAY MD [id number] 03/17/2013 09:54:00 03/17/2013 23: 59:59 CLS Outpatient ADELINA RIVER DDS [id number] 03/09/2013 12:04:00 03/09/2013 23: 59:59 CLS Outpatient RODNEY LANDIN APRN [id number] 01/29/2013 10:58:00 01/29/2013 23: 59:59 CLS Outpatient RAIN MAY MD [id number] 01/29/2013 10:58:00 01/29/2013 23: 59:59 CLS Outpatient RAIN MAY MD [id number] 01/05/2013 13:57:00 01/05/2013 23: 59:59 CLS Outpatient RAIN MAY MD [id number] 01/05/2013 13:57:00 01/05/2013 23: 59:59 CLS Outpatient RAIN MAY MD [id number] 11/27/2012 09:03:00 11/27/2012 23: 59:59 CLS Outpatient HEAVEN SCHAEFFER APRN [id number] 11/27/2012 09:03:00 11/27/2012 23: 59:59 CLS Outpatient HEAVEN SCHAEFFER APRN [id number] 05/26/2012 14:39:00 05/26/2012 23: 59:59 CLS Outpatient RAIN MAY MD [id number] 05/09/2012 08:05:00 05/09/2012 23: 59:59 CLS Outpatient SEGUNDO NARANJO DDS [id number] 04/18/2012 10:07:00 04/18/2012 23: 59:59 CLS Outpatient CHANDRA HINTON DO [id number] 04/15/2012 13:26:00 04/15/2012 23: 59:59 CLS Outpatient [id number] 04/15/2012 13:26:00 04/15/2012 23: 59:59 CLS Outpatient [id number] 04/01/2012 08:41:00 04/01/2012 23: 59:59 CLS Outpatient RAIN MAY MD [id number] 03/06/2012 13:40:00 03/06/2012 23: 59:59 CLS Outpatient RAIN MAY MD [id number] 03/03/2012 10:53:00 03/03/2012 23: 59:59 CLS Outpatient [id number] 01/10/2012 10:19:00 01/10/2012 23: 59:59 CLS Outpatient RAIN MAY MD [id number] 01/10/2012 10:19:00 01/10/2012 23: 59:59 CLS Outpatient RAIN MAY MD [id number] 11/17/2012 11:30:00 Document Registration [id number] 09/09/2012 16:19:00 Document Registration [id number] 09/05/2012 11:44:00 Document Registration [id number] 09/05/2012 11:44:00 Document Registration [id number] 09/03/2012 09:31:00 Document Registration [id number] 08/26/2012 10:08:00 Document Registration [id number] 08/21/2012 10:15:00 Document Registration [id number] 08/05/2012 11:16:00 Document Registration [id number] 07/14/2012 15:02:00 Document Registration [id number] 07/14/2012 15:02:00 Document Registration [id number] 07/07/2012 09:52:00 Document Registration
--- OUTSIDE RECORDS SUMMARY | 2016-06-19 12:08 | XMS REPORT ---
Author Author RAIN MAY Organization [employer] Address Unknown Phone Unavailable Care Team Providers Care Hasher Operator Name Role Phone RAIN MAY CP Unavailable [...] screening V76.10 Active Medications No Known Medications Results No Known Results Summary Purpose [employer] Submission
--- OUTSIDE RECORDS SUMMARY | 2016-06-19 12:09 | XMS REPORT ---
Author Author RAIN MAY Organization [employer] Address Unknown Phone Unavailable Care Team Providers Care Radio Journalist Name Role Phone RAIN MAY CP Unavailable [...]
== END 2016-05-17 07:43 | disposition left against medical advice (07) ==
LOC: EDUNIT# 21:22 → ER 21:23 → ICU 21:24 → UNDOADMOB 22:56 → ICU 23:22 → UNDOADMOB 05-17 00:15 → UNDODISOB 05-17 07:43
PROVIDERS: ADMIT Family Medicine; ATTEND Family Medicine
DX: T43.202A Poisoning by unspecified antidepressants, intentional self-harm, initial encounter (principal); F32.9 Major depressive disorder, single episode, unspecified; E11.9 Type 2 diabetes mellitus without complications; J44.9 Chronic obstructive pulmonary disease, unspecified; I25.10 Atherosclerotic heart disease of native coronary artery without angina pectoris; Z79.84 Long term (current) use of oral hypoglycemic drugs; Z79.899 Other long term (current) drug therapy; Z86.718 Personal history of other venous thrombosis and embolism; Y92.009 Unspecified place in unspecified non-institutional (private) residence as the place of occurrence of the external cause
CPT/HCPCS: 36415; 71010; 80053; 80306; 80320; 80329; 81000; 83735; 84100; 84443; 85025; 93005; G0378

== ENCOUNTER 2016-06-21 00:31 | Emergency (ER) | payer MEDICARE, MEDICAID ==
[~2016-06-21] VITALS: Ht 167.6 cm; Wt 102.1 kg
[2016-06-21 00:58] LABS: BASOPHILS % (AUTO) 0 % (0-10); EOSINOPHILS # (AUTO) 0.1 10^3/uL (0.0-0.3); EOSINOPHILS % (AUTO) 2 % (0-10); LYMPHOCYTES # (AUTO) 1.9 X 10^3 (1.0-4.0); LYMPHOCYTES % (AUTO) 27 % (12-44); MEAN CORPUSCULAR HEMOGLOBIN 30 PG (25-34); MEAN CORPUSCULAR HGB CONC 34 G/DL (32-36); MEAN CORPUSCULAR VOLUME 87 FL (80-99); MEAN PLATELET VOLUME 10.5 FL (7.4-10.4); MONOCYTES # (AUTO) 1.1 X 10^3 (0.0-1.0); MONOCYTES % (AUTO) 15 % (0-12); NEUTROPHILS # (AUTO) 3.9 X 10^3 (1.8-7.8); NEUTROPHILS % (AUTO) 56 % (42-75); PLATELET COUNT 218 10^3/uL (130-400); RED BLOOD COUNT 5.07 10^6/uL (4.35-5.85); RED CELL DISTRIBUTION WIDTH 12.7 % (10.0-14.5)
[2016-06-21 01:07] LABS: INR 1.5 (0.8-1.4); PROTHROMBIN TIME PATIENT 17.5 SEC (12.2-14.7)
[2016-06-21 01:17] LABS: ALANINE AMINOTRANSFERASE 27 U/L (0-55); ANION GAP 12 MMOL/L (5-14); ASPARTATE AMINO TRANSFERASE 22 U/L (5-34); BILIRUBIN,TOTAL 0.4 MG/DL (0.1-1.0); BLOOD UREA NITROGEN 12 MG/DL (7-18); BUN/CREATININE RATIO 16; CALCIUM 8.8 MG/DL (8.5-10.1); CARBON DIOXIDE 20 MMOL/L (21-32); CHLORIDE 105 MMOL/L (98-107); CREATININE SERUM 0.77 MG/DL (0.60-1.30); GFR ESTIMATED > 60; GLUCOSE 218 MG/DL (70-105); POTASSIUM 3.9 MMOL/L (3.6-5.0); SODIUM 137 MMOL/L (135-145); TOTAL PROTEIN 7.1 G/DL (6.4-8.2)
[2016-06-21] MEDS ORDERED: AMOXICILLIN 500 MG (POLYMOX) CAP PO ONE (02:00)
[2016-06-21] MEDS ORDERED: TRAM-42 PO (02:02)
[2016-06-21] MEDS ORDERED: AMOX500C2 PO (02:02)
--- NOTE | 2016-06-21 02:03 | ED General ---
General Chief Complaint: Cough/Cold/Flu Symptoms Stated Complaint: SOB,POSS SINUS INFECTION Nursing Triage Note: PT TO ED 9 W/ S.O. FOR C/O COUGH, CONGESTION, "LUNG PAIN", GENERALIZED BODY ACHES ONSET "A FEW DAYS". Nursing Sepsis Screen: No Definite Risk Source of Information: Patient Exam Limitations: No Limitations History of Present Illness Time Seen by Provider: 00:37 Initial Comments This 50-year-old woman presents to the emergency room with illness for about one week. Symptoms include chest congestion, discomfort with inspiration, sinus drainage, myalgia, stuffy aching ears, fever, chills, and dizziness. She is anticoagulated for DVT prophylaxis. She is a smoker. Allergies and Home Medications Allergies Coded Allergies: levofloxacin (Verified Allergy, Unknown, 06/21/14) sulfamethoxazole (Unverified Allergy, Unknown, 06/21/14) trimethoprim (Unverified Allergy, Unknown, 06/21/14) Home Medications Amoxicillin 500 Mg Capsule, 1,000 MG PO BID, #40 Prescribed by: ROYCE ARGUELLO on 06/21/16 0202 Atorvastatin 20 Mg Tablet, 20 MG PO DAILY, (Reported) Brexpiprazole 2 Mg Tablet, #30 (Reported) Cefdinir 300 Mg Capsule, 300 MG PO BID, #14 Prescribed by: FRANCO MORRISSEY on 10/16/15 1640 Furosemide 20 Mg Tablet, #21 (Reported) Glipizide 10 Mg Tab.sr.24h, 10 MG PO DAILY, (Reported) Hydrocodone/Acetaminophen 1 Each Tablet, 1 PO Q4H PRN for PAIN, #42 (Reported) Metformin Hcl 1,000 Mg Tablet, 1,000 MG PO BID, (Reported) Tramadol HCl 50 Mg Tablet, 50 MG PO Q6H PRN for PAIN, #10 Prescribed by: ROYCE ARGUELLO on 06/21/16 0202 Venlafaxine HCl 75 Mg Cap.er.24h, 75 MG PO DAILY, #30 (Reported) Constitutional: see HPI EENTM: see HPI Respiratory: see HPI Cardiovascular: no symptoms reported Gastrointestinal: no symptoms reported Genitourinary: no symptoms reported Musculoskeletal: no symptoms reported Skin: no symptoms reported Psychiatric/Neurological: See HPI Hematologic/Lymphatic: No Symptoms Reported Immunological/Allergic: no symptoms reported Past Jgeouhd-Evfkwp-Tkcjtn Hx Patient Social History Alcohol Use: Denies Use Recreational Drug Use: No Smoking Status: Current Everyday Smoker Type Used: Cigarettes 2nd Hand Smoke Exposure: No Recent Foreign Travel: No Contact w/Someone Who Travel: No Recent Infectious Disease Expo: No Recent Hopitalizations: Yes Immunizations Up To Date Tetanus Booster (TDap): Unknown Date of Pneumonia Vaccine: Jun 26, 2007 Date of Influenza Vaccine: Dec 09, 2013 Seasonal Allergies Seasonal Allergies: No Surgeries HX Surgeries: Yes (STENT IN R URETER, BACK SURGERY, SUSANA FILTER) Surgeries: Gallbladder, Hysterectomy, Orthopedic, Tubal Ligation Respiratory Hx Respiratory Disorders: Yes Respiratory Disorders: Asthma, Sleep Apnea, COPD Cardiovascular Hx Cardiac Disorders: Yes Cardiac Disorders: Coronary Artery Disease, Deep Vein Thrombosis Neurological Hx Neurological Disorders: No Neurological Disorders: Neuropathy 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 System Hx 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 Disorders: No Sexually Transmitted Disease: No HIV/AIDS: No 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 Genitourinary Hx Genitourinary Disorders: Yes Genitourinary Disorders: Kidney Stones Gastrointestinal Hx Gastrointestinal Disorders: No Gastrointestinal Disorders: Gastroesophageal Reflux Musculoskeletal Hx Musculoskeletal Disorders: Yes Musculoskeletal Disorders: Arthritis Endocrine Hx Endocrine Disorders: Yes Endocrine Disorders: Diabetes, Non-Insulin dep HEENT HX ENT Disorders: No Loss of Vision: Denies Hearing Impairment: Denies Cancer Hx Cancer: No Psychosocial Hx Psychiatric Problems: Yes Behavioral Health Disorders: Bipolar, Depression Integumentary HX Skin/Integumentary Disorder: No Blood Transfusions Hx Blood Disorders: Yes (HX OF BLOOD CLOTS) Adverse Reaction to a Blood Tr: No Family Medical History Significant Family History: No Pertinent Family Hx Family Medial History: Diabetes mellitus 19 FATHER EMPHYSEMA 19 FATHER EPIEPSY G8 SISTER Hypertension 19 MOTHER STROKE 19 MOTHER No Family History of: Asthma Physical Exam Vital Signs Vital Sign - Last 12Hours 06/21/16 00:35 Temp 97.3 Pulse 91 Resp 20 B/P (MAP) 126/67 Pulse Ox 96 O2 Delivery Room Air Capillary Refill : Less Than 3 Seconds General Appearance: No Apparent Distress, WD/WN HEENT: PERRL/EOMI, Normal ENT Inspection, TM Abnormal (R) (purulent effusion), Other (small nodular mass at the base of the uvula) Neck: Normal Inspection Respiratory: Chest Non Tender, Lungs Clear, Normal Breath Sounds, No Accessory Muscle Use, No Respiratory Distress Cardiovascular: Regular Rate, Rhythm, No Edema, No Murmur Gastrointestinal: Normal Bowel Sounds, Non Tender, Soft Extremity: Normal Inspection, No Pedal Edema Neurologic/Psychiatric: Alert, Oriented x3, No Motor/Sensory Deficits, Normal 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/Affect, 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 Norm as Tested Skin: Normal Color, Warm/Dry Progress/Results/Core Measures Results/Orders Lab Results Laboratory Tests Test 06/21/16 00:50 Range/Units White Blood Count 7.0 4.3-11.0 10^3/uL Red Blood Count 5.07 4.35-5.85 10^6/uL Hemoglobin 15.0 11.5-16.0 G/DL Hematocrit 44 35-52 % Mean Corpuscular Volume 87 80-99 FL Mean Corpuscular Hemoglobin 30 25-34 PG Mean Corpuscular Hemoglobin Concent 34 32-36 G/DL Red Cell Distribution Width 12.7 10.0-14.5 % Platelet Count 218 130-400 10^3/uL Mean Platelet Volume 10.5 H 7.4-10.4 FL Neutrophils (%) (Auto) 56 42-75 % Lymphocytes (%) (Auto) 27 12-44 % Monocytes (%) (Auto) 15 H 0-12 % Eosinophils (%) (Auto) 2 0-10 % Basophils (%) (Auto) 0 0-10 % Neutrophils # (Auto) 3.9 1.8-7.8 X 10^3 Lymphocytes # (Auto) 1.9 1.0-4.0 X 10^3 Monocytes # (Auto) 1.1 H 0.0-1.0 X 10^3 Eosinophils # (Auto) 0.1 0.0-0.3 10^3/uL Basophils # (Auto) 0.0 0.0-0.1 10^3/uL Prothrombin Time 17.5 H 12.2-14.7 SEC INR Comment 1.5 H 0.8-1.4 Activated Partial Thromboplast Time 32 24-35 SEC Sodium Level 137 135-145 MMOL/L Potassium Level 3.9 3.6-5.0 MMOL/L Chloride Level 105 98-107 MMOL/L Carbon Dioxide Level 20 L 21-32 MMOL/L Anion Gap 12 5-14 MMOL/L Blood Urea Nitrogen 12 7-18 MG/DL Creatinine 0.77 0.60-1.30 MG/DL Estimat Glomerular Filtration Rate > 60 BUN/Creatinine Ratio 16 Glucose Level 218 H 70-105 MG/DL Calcium Level 8.8 8.5-10.1 MG/DL Total Bilirubin 0.4 0.1-1.0 MG/DL Aspartate Amino Transf (AST/SGOT) 22 5-34 U/L Alanine Aminotransferase (ALT/SGPT) 27 0-55 U/L Alkaline Phosphatase 70 40-136 U/L Total Protein 7.1 6.4-8.2 G/DL Albumin 4.0 3.2-4.5 G/DL Micro Results Microbiology 06/21/16 Influenza Types A,B Antigen (EM) - Final, Complete My Orders Orders - ROYCE KNUTSON MD Cbc With Automated Diff (06/21/16 00:48) Comprehensive Metabolic Panel (06/21/16 00:48) Protime With Inr (06/21/16 00:48) Partial Thromboplastin Time (06/21/16 00:48) Influenza A And B Antigens (06/21/16 00:48) Chest Pa/Lat (2 View) (06/21/16 00:48) Tramadol Tablet (Ultram Tablet) (06/21/16 02:00) Amoxicillin Capsule (Polymox Capsule) (06/21/16 02:00) Rx-Albuterol Inhaler (Rx-Ventolin Hfa) (06/21/16 01:55) Rx-Albuterol Inhaler (Rx-Proair) (06/21/16 02:08) Medications Given in ED Current Medications Medications Dose Ordered Sig/Phuc Route Start Time Stop Time Status Last Admin Dose Admin Albuterol Sulfate 8 gm STK-MED ONCE IH 06/21/16 02:08 06/21/16 02:11 DC 06/21/16 02:13 8 GM Amoxicillin 1,000 mg ONCE ONCE PO 06/21/16 02:00 06/21/16 02:01 DC 06/21/16 02:13 1,000 MG Tramadol HCl 50 mg ONCE ONCE PO 06/21/16 02:00 06/21/16 02:01 DC 06/21/16 02:13 50 MG Vital Signs/I&O Vital Sign - Last 12Hours 06/21/16 06/21/16 00:35 02:14 Temp 97.3 Pulse 91 0 Resp 20 0 B/P (MAP) 126/67 Pulse Ox 96 0 O2 Delivery Room Air Blood Pressure Mean: 86 Progress Note : Progress Note Workup was unremarkable. Patient was treated with tramadol. Amoxicillin was given for otitis media. A take-home inhaler was also dispensed. Diagnostic Imaging Diagonstic Imaging: Xray Plain Films/CT/US/NM/MRI: chest Comments Two-view chest x-ray viewed by me. Report not yet available. No acute abnormalities appreciated. Departure Impression Impression: Primary Impression: Right otitis media Qualified Codes: H66.001 - Acute suppurative otitis media without spontaneous rupture of ear drum, right ear Additional Impressions: Bronchitis Oropharyngeal mass Disposition: HOME, SELF-CARE Condition: Improved Departure-Patient Inst. Decision time for Depature: 01:59 Referrals: MAXI PINO DO (PCP/Family) Primary Care Physician Patient Instructions: Acute Bronchitis, Adult (DC), Ear Infections (Otitis Media) Add. Discharge Instructions: You may use your inhaler up to 4 puffs every 4 hours as needed for shortness of breath or wheezing. Complete your antibiotics as prescribed. You may take Tylenol and tramadol for body aches. Follow-up with your primary care provider regarding the mass by your uvula. I recommend he seek referral to a specialist such as Dr. Sanchez for further evaluation. Stop smoking as soon as possible and reduce smoking as much as you can while trying to quit. All discharge instructions reviewed with patient and/or family. Voiced understanding. Scripts Amoxicillin (Amoxicillin) 500 Mg Capsule 1000 MG PO BID, #40 CAP Prov: ROYCE KNUTSON MD 06/21/16 Tramadol HCl (Ultram) 50 Mg Tablet 50 MG PO Q6H Y for PAIN, #10 TAB Prov: ROYCE KNUTSON MD 06/21/16 Copy Copies To 1: MAXI PINO JOSHUA T MD Jun 21, 2016 02:03
[2016-06-21] MEDS ORDERED: RX-ALBUTEROL INHALER (PROAIR) 8 GM IH ONE (02:08)
[2016-06-21 02:14] VITALS: BP 0/0
[2016-06-21] MEDS: RX-ALBUTEROL INHALER (VENTOLIN HFA) 18 GM IH STA ×2 (02:15→03:47)
--- NOTE | 2016-06-21 07:38 | Diagnostic Imaging Report ---
EXAM: CHEST PA/LAT (2 VIEW) INDICATION: Chest pain. Cough. Shortness of breath. COMPARISON: Chest radiograph 05/17/2016. FINDINGS: Normal heart size and pulmonary vascularity. No focal pulmonary opacity, pleural effusion or pneumothorax. Calcified aorta. No acute osseous findings. IMPRESSION: No acute cardiopulmonary findings. Dictated by: Dictated on workstation # [id number]
== END 2016-06-21 02:14 | disposition home or self-care (01) ==
LOC: EDUNIT# 00:31 → ER 00:33
DX: J40 Bronchitis, not specified as acute or chronic (principal); H66.91 Otitis media, unspecified, right ear; J39.2 Other diseases of pharynx; I25.10 Atherosclerotic heart disease of native coronary artery without angina pectoris; E11.9 Type 2 diabetes mellitus without complications; J44.9 Chronic obstructive pulmonary disease, unspecified; F17.210 Nicotine dependence, cigarettes, uncomplicated; Z79.84 Long term (current) use of oral hypoglycemic drugs; Z79.899 Other long term (current) drug therapy
CPT/HCPCS: 36415; 71020; 80053; 85025; 85610; 85730; 87804

== ENCOUNTER 2016-06-22 21:03 | Emergency (ER) | payer MEDICARE, MEDICAID ==
[~2016-06-22 21:03] MED LIST changes: +AMOX500C2 PO
--- NOTE | 2016-06-22 21:12 | ED General ---
General Chief Complaint: Cough/Cold/Flu Symptoms Stated Complaint: BRONCHITIS Source of Information: Patient Exam Limitations: No Limitations History of Present Illness Time Seen by Provider: 21:09 Initial Comments To ER with complaints of rhonchi this. She was seen here yesterday for the same. Patient is currently homeless. She has been sitting in the waiting room for about an hour prior to checking in. She states that she needs rechecked because she feels as though she is getting worse with chills, diarrhea, nausea. She was given antibiotics be amoxicillin yesterday and she picked him up today and started taking them but denies improvement. I advised the patient we would check some labs and evaluate her and if everything was normal we would discharge her. She states "can't you just admit me, I've got the flu?!". I advised the patient we would check labs and admit based on the necessity. She states "well I ain't wasting my fuckin' time then!" And Leaves stating "if I pass out a half a block from here I'm suing!". Physical exam not able to be performed. Allergies and Home Medications Allergies Coded Allergies: levofloxacin (Verified Allergy, Unknown, 06/21/14) sulfamethoxazole (Unverified Allergy, Unknown, 06/21/14) trimethoprim (Unverified Allergy, Unknown, 06/21/14) Home Medications Amoxicillin 500 Mg Capsule, 1,000 MG PO BID, #40 Prescribed by: ROYCE ARGUELLO on 06/21/162 Atorvastatin 20 Mg Tablet, 20 MG PO DAILY, (Reported) Brexpiprazole 2 Mg Tablet, #30 (Reported) Cefdinir 300 Mg Capsule, 300 MG PO BID, #14 Prescribed by: FRANCO MORRISSEY on 10/16/15 1640 Furosemide 20 Mg Tablet, #21 (Reported) Glipizide 10 Mg Tab.sr.24h, 10 MG PO DAILY, (Reported) Hydrocodone/Acetaminophen 1 Each Tablet, 1 PO Q4H PRN for PAIN, #42 (Reported) Metformin Hcl 1,000 Mg Tablet, 1,000 MG PO BID, (Reported) Tramadol HCl 50 Mg Tablet, 50 MG PO Q6H PRN for PAIN, #10 Prescribed by: ROYCE ARGUELLO on 06/21/16 0202 Venlafaxine HCl 75 Mg Cap.er.24h, 75 MG PO DAILY, #30 (Reported) Past Opacyjk-Svhapj-Eymrov Hx Patient Social History Type Used: Cigarettes 2nd Hand Smoke Exposure: No Recent Hopitalizations: Yes Immunizations Up To Date Tetanus Booster (TDap): Unknown Date of Pneumonia Vaccine: Jun 26, 2007 Date of Influenza Vaccine: Dec 09, 2013 Seasonal Allergies Seasonal Allergies: No Surgeries HX Surgeries: Yes (STENT IN R URETER, BACK SURGERY, SUSANA FILTER) Surgeries: Gallbladder, Hysterectomy, Orthopedic, Tubal Ligation Respiratory Hx Respiratory Disorders: Yes Respiratory Disorders: Asthma, Sleep Apnea, COPD Cardiovascular Hx Cardiac Disorders: Yes Cardiac Disorders: Coronary Artery Disease, Deep Vein Thrombosis Neurological Hx Neurological Disorders: No Neurological Disorders: Neuropathy 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 System Hx 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 Disorders: No Sexually Transmitted Disease: No HIV/AIDS: 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 Genitourinary Hx Genitourinary Disorders: Yes Genitourinary Disorders: Kidney Stones Gastrointestinal Hx Gastrointestinal Disorders: No Gastrointestinal Disorders: Gastroesophageal Reflux Musculoskeletal Hx Musculoskeletal Disorders: Yes Musculoskeletal Disorders: Arthritis Endocrine Hx Endocrine Disorders: Yes Endocrine Disorders: Diabetes, Non-Insulin dep HEENT HX ENT Disorders: No Loss of Vision: Denies Hearing Impairment: Denies Cancer Hx Cancer: No Psychosocial Hx Psychiatric Problems: Yes Behavioral Health Disorders: Bipolar, Depression Integumentary HX Skin/Integumentary Disorder: No Blood Transfusions Hx Blood Disorders: Yes (HX OF BLOOD CLOTS) Adverse Reaction to a Blood Tr: No Family Medical History Significant Family History: No Pertinent Family Hx Family Medial History: Diabetes mellitus 19 FATHER EMPHYSEMA 19 FATHER EPIEPSY G8 SISTER Hypertension 19 MOTHER STROKE 19 MOTHER No Family History of: Asthma Physical Exam Vital Signs Capillary Refill : Departure Impression Impression: Primary Impression: Left against medical advice Disposition: 07 AGAINST MEDICAL ADVICE Condition: Against Medical Advice Departure-Patient Inst. Referrals: MAXI PINO DO (PCP/Family) Primary Care Physician ROLAND GONZALEZ APRN Jun 22, 2016 21:12
== END 2016-06-22 21:13 | disposition left against medical advice (07) ==
LOC: EDUNIT# 21:03 → ER 21:05
DX: J40 Bronchitis, not specified as acute or chronic (principal); J44.9 Chronic obstructive pulmonary disease, unspecified; E11.9 Type 2 diabetes mellitus without complications; Z79.84 Long term (current) use of oral hypoglycemic drugs; Z59.0 Homelessness; Z86.718 Personal history of other venous thrombosis and embolism; Z53.29 Procedure and treatment not carried out because of patient's decision for other reasons

== ENCOUNTER 2016-08-02 15:33 | Emergency (ER) | payer MEDICARE, MEDICAID ==
[~2016-08-02] VITALS: Ht 167.6 cm; Wt 102.1 kg
--- NOTE | 2016-08-02 16:09 | ED Psychosocial ---
General Chief Complaint: Psych/Social Disorder Stated Complaint: PSYCH EVAL Source: patient Exam Limitations: no limitations History of Present Illness Time seen by provider: 16:08 Initial Comments To ER requesting evaluation and placement inpatient psych. She requests this because she states "I'm crazy". She refuses to elaborate and provide any further details. She denies any suicidality or homicidality. She states "if I don't get admitted though, something bad is going to happen someday". She is homeless. She was seen here a few weeks ago for bronchitis and despite normal labs and chest x-ray she insisted on being admitted. She became very upset when she did not get admitted Timing/Duration: yesterday Severity: moderate Associated Symptoms: anxiety Allergies and Home Medications Allergies Coded Allergies: levofloxacin (Verified Allergy, Unknown, 06/21/14) sulfamethoxazole (Unverified Allergy, Unknown, 06/21/14) trimethoprim (Unverified Allergy, Unknown, 06/21/14) Home Medications Amoxicillin 500 Mg Capsule, 1,000 MG PO BID, #40 Prescribed by: ROYCE ARGUELLO on 06/21/16 0202 Atorvastatin 20 Mg Tablet, 20 MG PO DAILY, (Reported) Brexpiprazole 2 Mg Tablet, #30 (Reported) Cefdinir 300 Mg Capsule, 300 MG PO BID, #14 Prescribed by: FRANCO MORRISSEY on 10/16/15 1640 Furosemide 20 Mg Tablet, #21 (Reported) Glipizide 10 Mg Tab.sr.24h, 10 MG PO DAILY, (Reported) Hydrocodone/Acetaminophen 1 Each Tablet, 1 PO Q4H PRN for PAIN, #42 (Reported) Metformin Hcl 1,000 Mg Tablet, 1,000 MG PO BID, (Reported) Tramadol HCl 50 Mg Tablet, 50 MG PO Q6H PRN for PAIN, #10 Prescribed by: ROYCE ARGUELLO on 06/21/16 0202 Venlafaxine HCl 75 Mg Cap.er.24h, 75 MG PO DAILY, #30 (Reported) Constitutional: see HPI EENTM: see HPI Respiratory: no symptoms reported Cardiovascular: see HPI, other (lightheadedness) Musculoskeletal: no symptoms reported, see HPI Skin: no symptoms reported Psychiatric/Neurological: See HPI, Anxiety Past Rormpbr-Fxqilk-Aajqjx Hx Patient Social History Type Used: Cigarettes 2nd Hand Smoke Exposure: No Recent Foreign Travel: No Contact w/Someone Who Travel: No Recent Hopitalizations: Yes Immunizations Up To Date Tetanus Booster (TDap): Unknown Date of Pneumonia Vaccine: Jun 26, 2007 Date of Influenza Vaccine: Dec 09, 2013 Seasonal Allergies Seasonal Allergies: No Surgeries HX Surgeries: Yes (STENT IN R URETER, BACK SURGERY, SUSANA FILTER) Surgeries: Gallbladder, Hysterectomy, Orthopedic, Tubal Ligation Respiratory Hx Respiratory Disorders: Yes Respiratory Disorders: Asthma, Sleep Apnea, COPD Cardiovascular Hx Cardiac Disorders: Yes Cardiac Disorders: Coronary Artery Disease, Deep Vein Thrombosis Neurological Hx Neurological Disorders: No Neurological Disorders: Neuropathy 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 System Hx 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 Disorders: No Sexually Transmitted Disease: No 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/AIDS: 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 Genitourinary Hx Genitourinary Disorders: Yes Genitourinary Disorders: Kidney Stones Gastrointestinal Hx Gastrointestinal Disorders: No Gastrointestinal Disorders: Gastroesophageal Reflux Musculoskeletal Hx Musculoskeletal Disorders: Yes Musculoskeletal Disorders: Arthritis Endocrine Hx Endocrine Disorders: Yes Endocrine Disorders: Diabetes, Non-Insulin dep HEENT HX ENT Disorders: No Loss of Vision: Denies Hearing Impairment: Denies Cancer Hx Cancer: No Psychosocial Hx Psychiatric Problems: Yes Behavioral Health Disorders: Bipolar, Depression Integumentary HX Skin/Integumentary Disorder: No Blood Transfusions Hx Blood Disorders: Yes (HX OF BLOOD CLOTS) Adverse Reaction to a Blood Tr: No Family Medical History Significant Family History: No Pertinent Family Hx Family Medial History: Diabetes mellitus 19 FATHER EMPHYSEMA 19 FATHER EPIEPSY G8 SISTER Hypertension 19 MOTHER STROKE 19 MOTHER No Family History of: Asthma Physical Exam Vital Signs Vital Sign - Last 12Hours 08/02/16 16:04 Temp 97.0 Pulse 78 Resp 18 B/P (MAP) 150/100 Pulse Ox 98 O2 Delivery Room Air Capillary Refill : General Appearance: WD/WN, no apparent distress HEENT: PERRL/EOMI, normal ENT inspection Neck: non-tender, full range of motion Respiratory: normal breath sounds, no respiratory distress, no accessory muscle use Cardiovascular: regular rate, rhythm, no murmur Gastrointestinal: normal bowel sounds, non tender, soft Extremities: normal range of motion, non-tender Neurologic/Psychiatric: alert, normal mood/affect, oriented x 3 Appearance/Memory: appropriate appearance, appropriate insight, neat Behavior/Eye Contact: cooperative, good eye contact Thoughts/Hallucinations: normal thought pattern, no apparent hallucination, other (hostile, angry) Skin: normal color, warm/dry Progress/Results/Core Measures Results/Orders Lab Results Laboratory Tests Test 08/02/16 16:19 08/02/16 17:46 Range/Units White Blood Count 10.6 4.3-11.0 10^3/uL Red Blood Count 5.02 4.35-5.85 10^6/uL Hemoglobin 15.1 11.5-16.0 G/DL Hematocrit 44 35-52 % Mean Corpuscular Volume 87 80-99 FL Mean Corpuscular Hemoglobin 30 25-34 PG Mean Corpuscular Hemoglobin Concent 35 32-36 G/DL Red Cell Distribution Width 13.4 10.0-14.5 % Platelet Count 260 130-400 10^3/uL Mean Platelet Volume 11.0 H 7.4-10.4 FL Neutrophils (%) (Auto) 57 42-75 % Lymphocytes (%) (Auto) 35 12-44 % Monocytes (%) (Auto) 7 0-12 % Eosinophils (%) (Auto) 2 0-10 % Basophils (%) (Auto) 0 0-10 % Neutrophils # (Auto) 6.0 1.8-7.8 X 10^3 Lymphocytes # (Auto) 3.7 1.0-4.0 X 10^3 Monocytes # (Auto) 0.7 0.0-1.0 X 10^3 Eosinophils # (Auto) 0.2 0.0-0.3 10^3/uL Basophils # (Auto) 0.0 0.0-0.1 10^3/uL Sodium Level 134 L 135-145 MMOL/L Potassium Level 4.2 3.6-5.0 MMOL/L Chloride Level 99 98-107 MMOL/L Carbon Dioxide Level 24 21-32 MMOL/L Anion Gap 11 5-14 MMOL/L Blood Urea Nitrogen 14 7-18 MG/DL Creatinine 0.94 0.60-1.30 MG/DL Estimat Glomerular Filtration Rate > 60 BUN/Creatinine Ratio 15 Glucose Level 483 *H 70-105 MG/DL Calcium Level 9.3 8.5-10.1 MG/DL Total Bilirubin 0.4 0.1-1.0 MG/DL Aspartate Amino Transf (AST/SGOT) 24 5-34 U/L Alanine Aminotransferase (ALT/SGPT) 28 0-55 U/L Alkaline Phosphatase 77 40-136 U/L Total Protein 7.6 6.4-8.2 G/DL Albumin 4.1 3.2-4.5 G/DL Salicylates Level < 5.0 L 5.0-20.0 MG/DL Acetaminophen Level < 10 L 10-30 UG/ML Serum Alcohol < 10 <10 MG/DL Urine Color YELLOW Urine Clarity CLEAR Urine pH 6 5-9 Urine Specific Morning Sun 1.010 L 1.016-1.022 Urine Protein NEGATIVE NEGATIVE Urine Glucose (UA) 4+ H NEGATIVE Urine Ketones NEGATIVE NEGATIVE Urine Nitrite NEGATIVE NEGATIVE Urine Bilirubin NEGATIVE NEGATIVE Urine Urobilinogen NORMAL NORMAL MG/DL Urine Leukocyte Esterase 1+ H NEGATIVE Urine RBC (Auto) 1+ H NEGATIVE Urine RBC 0-2 /HPF Urine WBC 0-2 /HPF Urine Squamous Epithelial Cells 2-5 /HPF Urine Crystals NONE /LPF Urine Bacteria FEW H /HPF Urine Casts NONE /LPF Urine Mucus NEGATIVE /LPF Urine Culture Indicated NO Urine Opiates Screen NEGATIVE NEGATIVE Urine Oxycodone Screen NEGATIVE NEGATIVE Urine Methadone Screen NEGATIVE NEGATIVE Urine Propoxyphene Screen NEGATIVE NEGATIVE Urine Barbiturates Screen NEGATIVE NEGATIVE Ur Tricyclic Antidepressants Screen NEGATIVE NEGATIVE Urine Phencyclidine Screen NEGATIVE NEGATIVE Urine Amphetamines Screen NEGATIVE NEGATIVE Urine Methamphetamines Screen NEGATIVE NEGATIVE Urine Benzodiazepines Screen NEGATIVE NEGATIVE Urine Cocaine Screen NEGATIVE NEGATIVE Urine Cannabinoids Screen NEGATIVE NEGATIVE My Orders Orders - ROLAND GONZALEZ APRN Ua Culture If Indicated (08/02/16 16:07) Drug Screen Stat (Urine) (08/02/16 16:07) Cbc With Automated Diff (08/02/16 16:07) Salicylate (08/02/16 16:07) Acetaminophen (08/02/16 16:07) Comprehensive Metabolic Panel (08/02/16 16:07) Alcohol (08/02/16 16:07) Ekg Tracing (08/02/16 16:07) Albuterol/Ipratropium Inhaler (Combivent (08/02/16 19:00) Rt Request For Service (08/02/16 16:21) Chest 1 View, Ap/Pa Only (08/02/16 16:27) Albuterol Common Canister (Ventolin Hfa (08/02/16 18:00) Rx-Albuterol Inhaler (Rx-Proair) (08/02/16 16:47) General/Regular (08/03/16 Dinner) General/Regular (08/02/16 Dinner) Insulin (Regular) Human (Humulin R (Per (08/02/16 17:15) Accucheck Stat ONCE (08/02/16 18:06) Insulin (Regular) Human (Humulin R (Per (08/02/16 18:15) Insulin (Regular) Human (Humulin R (Per (08/02/16 18:15) Medications Given in ED Current Medications Medications Dose Ordered Sig/Phuc Route Start Time Stop Time Status Last Admin Dose Admin Albuterol Sulfate 8 gm STK-MED ONCE IH 08/02/16 16:47 08/02/16 16:51 DC 08/02/16 16:55 8 GM Insulin Human Regular 10 unit ONCE ONCE SC 08/02/16 17:15 08/02/16 17:16 DC 08/02/16 17:12 10 UNIT Vital Signs/I&O Vital Sign - Last 12Hours 08/02/16 08/02/16 16:04 16:57 Temp 97.0 Pulse 78 Resp 18 B/P (MAP) 150/100 Pulse Ox 98 98 O2 Delivery Room Air Departure Communication Progress Notes Patient has no inpatient criteria for psychiatric treatment and she is not homicidal or suicidal. Advised her of this and she states "why not, I'm crazy" Impression Impression: Primary Impression: Homelessness Additional Impression: Bipolar disorder Disposition: 01 HOME, SELF-CARE Condition: Stable Departure-Patient Inst. Decision time for Depature: 17:20 Referrals: MAXI PINO DO (PCP/Family) Primary Care Physician Patient Instructions: NO INSTRUCTIONS GIVEN Add. Discharge Instructions: 1. Follow up with your regular doctor this week 2. Call [phone] ([facility]) any time day or night for any mental health needs. All discharge instructions reviewed with patient and/or family. Voiced understanding. ROLAND GONZALEZ APRN August 02, 2016 16:09
[2016-08-02 16:28] LABS: BASOPHILS % (AUTO) 0 % (0-10); EOSINOPHILS # (AUTO) 0.2 10^3/uL (0.0-0.3); EOSINOPHILS % (AUTO) 2 % (0-10); LYMPHOCYTES # (AUTO) 3.7 X 10^3 (1.0-4.0); LYMPHOCYTES % (AUTO) 35 % (12-44); MEAN CORPUSCULAR HEMOGLOBIN 30 PG (25-34); MEAN CORPUSCULAR HGB CONC 35 G/DL (32-36); MEAN CORPUSCULAR VOLUME 87 FL (80-99); MONOCYTES # (AUTO) 0.7 X 10^3 (0.0-1.0); MONOCYTES % (AUTO) 7 % (0-12); NEUTROPHILS % (AUTO) 57 % (42-75); PLATELET COUNT 260 10^3/uL (130-400); RED BLOOD COUNT 5.02 10^6/uL (4.35-5.85); RED CELL DISTRIBUTION WIDTH 13.4 % (10.0-14.5); WHITE BLOOD COUNT 10.6 10^3/uL (4.3-11.0)
[2016-08-02] MEDS ORDERED: RX-ALBUTEROL INHALER (PROAIR) 8 GM IH ONE (16:47)
[2016-08-02 17:00] LABS: ALANINE AMINOTRANSFERASE 28 U/L (0-55); ALBUMIN 4.1 G/DL (3.2-4.5); ANION GAP 11 MMOL/L (5-14); ASPARTATE AMINO TRANSFERASE 24 U/L (5-34); BILIRUBIN,TOTAL 0.4 MG/DL (0.1-1.0); BLOOD UREA NITROGEN 14 MG/DL (7-18); BUN/CREATININE RATIO 15; CALCIUM 9.3 MG/DL (8.5-10.1); CARBON DIOXIDE 24 MMOL/L (21-32); CHLORIDE 99 MMOL/L (98-107); CREATININE SERUM 0.94 MG/DL (0.60-1.30); GFR ESTIMATED > 60; POTASSIUM 4.2 MMOL/L (3.6-5.0); SALICYLATE < 5.0 MG/DL (5.0-20.0); SODIUM 134 MMOL/L (135-145); TOTAL PROTEIN 7.6 G/DL (6.4-8.2)
--- NOTE | 2016-08-02 17:03 | Diagnostic Imaging Report ---
INDICATION: Dyspnea, psychiatric screening. DISCUSSION: Single portable upright view of the chest was obtained, comparison 06/21/2016. No focal consolidation, pleural fluid, or pneumothorax. Stable normal heart size. No acute osseous abnormality. IMPRESSION: 1. Negative portable chest. Dictated by: Dictated on workstation # [id number]
[2016-08-02 17:04] LABS: ACETAMINOPHEN < 10 UG/ML (10-30); ALCOHOL < 10 MG/DL (<10); GLUCOSE 483 MG/DL (70-105)
[2016-08-02] MEDS ORDERED: inSUlin (REGULAR) HUMAN 1 UNIT/0.01 ML (CHARGE PER UNIT) SC ONE ×3 (17:15→18:15)
[2016-08-02 17:56] LABS: BILIRUBIN,URINE NEGATIVE (NEGATIVE); KETONES,URINE NEGATIVE (NEGATIVE); LEUKOCYTE ESTERASE ,URINE 1+ (NEGATIVE); NITRITE,URINE NEGATIVE (NEGATIVE); PH,URINE 6 (5-9); PROTEIN,URINE NEGATIVE (NEGATIVE); UROBILINOGEN,URINE NORMAL (NORMAL)
[2016-08-02] MEDS ORDERED: RT-ALBUTEROL HFA (VENTOLIN) PER PUFF IH SCH (18:00)
[2016-08-02 18:06] LABS: WBC,URINE 0-2 /HPF
[2016-08-02 18:22] VITALS: BP 150/100
[2016-08-02] MEDS ORDERED: ALBUTEROL/IPRATROP (COMBIVENT RESPIMAT) 4 GM INHALER INH SCH (19:00)
== END 2016-08-02 18:22 | disposition home or self-care (01) ==
LOC: EDUNIT# 15:33 → ER 15:36
DX: F31.9 Bipolar disorder, unspecified (principal); E11.9 Type 2 diabetes mellitus without complications; J44.9 Chronic obstructive pulmonary disease, unspecified; I25.10 Atherosclerotic heart disease of native coronary artery without angina pectoris; Z79.84 Long term (current) use of oral hypoglycemic drugs; Z59.0 Homelessness
CPT/HCPCS: 36415; 71010; 80053; 80306; 80320; 80329; 81000; 82962; 85025; 93005; 94640; 94664

== ENCOUNTER 2016-08-18 12:00 | Emergency (ER) | payer MEDICARE, MEDICAID ==
[~2016-08-18] VITALS: Ht 165.1 cm; Wt 90.7 kg
[~2016-08-18 12:00] MED LIST changes: -GLIP-173 PO; -METF1000 PO
[2016-08-18 12:18] VITALS: BP 111/84
--- NOTE | 2016-08-18 12:20 | ED General ---
ED General Template History Present Illness patient presented via EMS for vaginal bleeding. She reports lower pelvic pain. Upon further questioning the patient she became uncooperative and stated "I'm just here to get my medications refilled" Patient refuses to answer further questions about current health problems. She became hateful to staff and yelled about her needs "I just need some food and my prescriptions." Tried to communicate with patient the importance of obtaining her current health problems so that she could be adequately treated. Initial Time/Exam Patient 1200 Allergy/Medications Allergies: Coded Allergies: levofloxacin (Verified Allergy, Unknown, 06/21/14) sulfamethoxazole (Unverified Allergy, Unknown, 06/21/14) trimethoprim (Unverified Allergy, Unknown, 06/21/14) Amoxicillin (Amoxicillin) 500 Mg Capsule, 1,000 MG PO BID, #40 Prescribed by: ROYCE ARGUELLO on 06/21/16 0202 Atorvastatin (Lipitor Tablet) 20 Mg Tablet, 20 MG PO DAILY, (Reported) Brexpiprazole (Rexulti) 2 Mg Tablet, #30 (Reported) Cefdinir (Cefdinir) 300 Mg Capsule, 300 MG PO BID, #14 Prescribed by: FRANCO MORRISSEY on 10/16/15 1640 Furosemide (Furosemide) 20 Mg Tablet, #21 (Reported) Glipizide (Glipizide Xl) 10 Mg Tab.sr.24h, 10 MG PO DAILY, (Reported) Hydrocodone/Acetaminophen (Hydrocodon -Acetaminophen 5-325) 1 Each Tablet, 1 PO Q4H PRN for PAIN, #42 (Reported) Metformin Hcl (Metformin 1000 Mg) 1,000 Mg Tablet, 1,000 MG PO BID, (Reported) Tramadol HCl (Ultram) 50 Mg Tablet, 50 MG PO Q6H PRN for PAIN, #10 Prescribed by: ROYCE ARGUELLO on 06/21/16 0202 Venlafaxine HCl (Venlafaxine HCl ER) 75 Mg Cap.er.24h, 75 MG PO DAILY, #30 ( Reported) Review Of Systems patient refused to provide this information PMH Past Medical Hx patient refuses to answer any questions. Stating "it's all on the computer" Progress/Results/Core Measures Results/Orders My Orders Orders - MIKAYLA SCHULTZ Alcohol (08/18/16 12:08) Cbc With Automated Diff (08/18/16 12:08) Comprehensive Metabolic Panel (08/18/16 12:08) Drug Screen Stat (Urine) (08/18/16 12:08) Ua Culture If Indicated (08/18/16 12:08) Vital Signs/I&O Vital Sign - Last 12Hours 08/18/16 08/18/16 12:02 12:18 Temp 98.2 98.2 Pulse 78 78 Resp 18 18 B/P (MAP) 111/84 Pulse Ox 96 96 Blood Pressure Mean: 93 Progress Note : Time: 12:18 Progress Note Jane Vaughan RN went in to obtain labs on patient and give her crackers, she became hostile and got out of bed. Stated she "won't eat that crap, get me food and prescriptions." She then ambulated out of the ED door to the waiting room. She stayed in the waiting room approximately 5 min, then left the hospital. Departure Impression Impression: Primary Impression: Left against medical advice Disposition: Condition: Against Medical Advice Departure-Patient Inst. Decision time for Depature: 12:18 Referrals: SUNI CABEZAS MD (PCP/Family) Primary Care Physician Copy Copies To 1: SUNI CABEZAS MD Physical Exam Vital Signs VS - Last 72 Hours, by Label 08/18/16 08/18/16 12:02 12:18 Temp 98.2 98.2 Pulse 78 78 Resp 18 18 B/P (MAP) 111/84 Pulse Ox 96 96 Capillary Refill : Less Than 3 Seconds General Appearance: WD/WN, no apparent distress HEENT: PERRL/EOMI, normal ENT inspection, TMs normal, pharynx normal Neck: non-tender, full range of motion, supple, normal inspection Respiratory: chest non-tender, lungs clear, normal breath sounds Cardiovascular: normal peripheral pulses, regular rate, rhythm Gastrointestinal: normal bowel sounds, non tender, soft, no organomegaly, no pulsatile mass Extremities: normal range of motion, non-tender, normal inspection, no calf tenderness, normal capillary refill, other (1+ edema bilateral lower extremities. Superficial abrasion to right knee, no warmth or erythema noted.) Neurologic/Psychiatric: no motor/sensory deficits, alert, other (patient uncooperative, refusing to make eye contact, answer questions or follow simple.) Skin: normal color, warm/dry ANTOINE,MIKAYLA NIB ADJUSTER Aug 18, 2016 12:19
[2016-08-19] MEDS ORDERED: METF1000 PO (01:23)
[2016-08-19] MEDS ORDERED: GLIP-173 PO (01:23)
== END 2016-08-18 12:18 | disposition left against medical advice (07) ==
LOC: EDUNIT# 12:00 → ER 12:01
DX: Z53.21 Procedure and treatment not carried out due to patient leaving prior to being seen by health care provider (principal)
CPT/HCPCS: 99283

== ENCOUNTER → 2016-08-18 | Emergency (ER) | payer MEDICARE, MEDICAID ==
[~2016-08-18] MED LIST changes: +GLIP-173 PO; +METF1000 PO
== END | disposition home or self-care (01) ==
LOC: EDUNIT# 18:57 → ER 18:58
DX: E11.65 Type 2 diabetes mellitus with hyperglycemia (principal); J44.9 Chronic obstructive pulmonary disease, unspecified; J45.909 Unspecified asthma, uncomplicated; I25.10 Atherosclerotic heart disease of native coronary artery without angina pectoris; F31.9 Bipolar disorder, unspecified; F17.210 Nicotine dependence, cigarettes, uncomplicated; Z79.84 Long term (current) use of oral hypoglycemic drugs; Z87.442 Personal history of urinary calculi; Z86.718 Personal history of other venous thrombosis and embolism; Z83.3 Family history of diabetes mellitus

== ENCOUNTER 2016-08-19 00:26 | Emergency (ER) | payer MEDICARE, MEDICAID ==
[~2016-08-19] VITALS: Ht 170.2 cm; Wt 95.3 kg
[2016-08-19] MEDS ORDERED: NS IV 1000 ML 1,000 ML IV ONE (00:34)
[2016-08-19] MEDS ORDERED: inSUlin (REGULAR) HUMAN 1 UNIT/0.01 ML (CHARGE PER UNIT) IV STA (00:34)
[2016-08-19] MEDS ORDERED: metFORMIN 500 MG (GLUCOPHAGE) TAB PO SCH (01:00)
[2016-08-19] MEDS ORDERED: glipiZIDE XL 10 MG (GLUCOTROL XL) TAB PO ONE (01:00)
--- NOTE | 2016-08-19 01:09 | ED General ---
General Chief Complaint: Glucose Problems Stated Complaint: INCREASED BLOOD SUGAR Nursing Triage Note: pt arrived by ems. pt states she is having "all kinds of problems". pt glucose was 365 per ems. Nursing Sepsis Screen: No Definite Risk Source of Information: Patient, EMS Exam Limitations: No Limitations History of Present Illness Time Seen by Provider: 00:30 Initial Comments Here by EMS with report of high blood sugar. This is her third visit to the ER in the last 44 hours. Apparently she was knocking on the windows of a local [facility] who then called the police. Police summoned EMS. EMS arrived and patient states that she is out of her meds and her blood sugar is high and she is hungry and she wants to go to the hospital. She stated that she would stay this time. On arrival, the patient reports high blood sugar and states that she just doesn't feel well and she would like to eat and she would like to be admitted. She reports that she is out of her home currently due to family problems and she would like assistance with housing. Timing/Duration: 24 Hours Severity: Mild Associated Systoms: No Chest Pain, No Cough, No Fever/Chills, No Nausea/ Vomiting, No Shortness of Air, No Weakness Allergies and Home Medications Allergies Coded Allergies: levofloxacin (Verified Allergy, Unknown, 06/21/14) sulfamethoxazole (Unverified Allergy, Unknown, 06/21/14) trimethoprim (Unverified Allergy, Unknown, 06/21/14) Home Medications Amoxicillin 500 Mg Capsule, 1,000 MG PO BID, #40 Prescribed by: ROYCE ARGUELLO on 06/21/16 0202 Atorvastatin 20 Mg Tablet, 20 MG PO DAILY, (Reported) Brexpiprazole 2 Mg Tablet, #30 (Reported) Cefdinir 300 Mg Capsule, 300 MG PO BID, #14 Prescribed by: FRANCO MORRISSEY on 10/16/15 1640 Furosemide 20 Mg Tablet, #21 (Reported) Glipizide 10 Mg Tab.sr.24h, 10 MG PO DAILY, (Reported) Hydrocodone/Acetaminophen 1 Each Tablet, 1 PO Q4H PRN for PAIN, #42 (Reported) Metformin Hcl 1,000 Mg Tablet, 1,000 MG PO BID, (Reported) Tramadol HCl 50 Mg Tablet, 50 MG PO Q6H PRN for PAIN, #10 Prescribed by: ROYCE ARGUELLO on 06/21/16 0202 Venlafaxine HCl 75 Mg Cap.er.24h, 75 MG PO DAILY, #30 (Reported) Constitutional: see HPI EENTM: no symptoms reported Respiratory: no symptoms reported Cardiovascular: no symptoms reported Gastrointestinal: no symptoms reported Genitourinary: no symptoms reported Musculoskeletal: muscle pain Skin: no symptoms reported Psychiatric/Neurological: See HPI, Emotional Problems All Other Systems Reviewed Negative Unless Noted: Yes Past Bzaibmm-Ypjdee-Vevonw Hx Patient Social History Alcohol Use: Denies Use Recreational Drug Use: No Smoking Status: Current Everyday Smoker Type Used: Cigarettes 2nd Hand Smoke Exposure: No Recent Foreign Travel: No Contact w/Someone Who Travel: No Recent Infectious Disease Expo: No Recent Hopitalizations: No Immunizations Up To Date Tetanus Booster (TDap): Unknown Date of Pneumonia Vaccine: Jun 26, 2007 Date of Influenza Vaccine: Dec 09, 2013 Seasonal Allergies Seasonal Allergies: No Surgeries HX Surgeries: Yes (STENT IN R URETER, BACK SURGERY, SUSANA FILTER) Surgeries: Gallbladder, Hysterectomy, Orthopedic, Tubal Ligation Respiratory Hx Respiratory Disorders: Yes Respiratory Disorders: Asthma, Sleep Apnea, COPD Cardiovascular Hx Cardiac Disorders: Yes Cardiac Disorders: Coronary Artery Disease, Deep Vein Thrombosis Neurological Hx Neurological Disorders: No Neurological Disorders: Neuropathy 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 System Hx 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 Disorders: No Sexually Transmitted Disease: No HIV/AIDS: No [employer]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 Genitourinary Hx Genitourinary Disorders: Yes Genitourinary Disorders: Kidney Stones Gastrointestinal Hx Gastrointestinal Disorders: No Gastrointestinal Disorders: Gastroesophageal Reflux Musculoskeletal Hx Musculoskeletal Disorders: Yes Musculoskeletal Disorders: Arthritis Endocrine Hx Endocrine Disorders: Yes Endocrine Disorders: Diabetes, Non-Insulin dep HEENT HX ENT Disorders: No Loss of Vision: Denies Hearing Impairment: Denies Cancer Hx Cancer: No Psychosocial Hx Psychiatric Problems: Yes Behavioral Health Disorders: Bipolar, Depression Integumentary HX Skin/Integumentary Disorder: No Blood Transfusions Hx Blood Disorders: Yes (HX OF BLOOD CLOTS) Adverse Reaction to a Blood Tr: No Reviewed Nursing Assessment Reviewed/Agree w Nursing PMH: Yes Family Medical History Family Medial History: Diabetes mellitus 19 FATHER EMPHYSEMA 19 FATHER EPIEPSY G8 SISTER Hypertension 19 MOTHER STROKE 19 MOTHER Physical Exam Vital Signs Vital Sign - Last 12Hours 08/19/16 00:30 Temp 96.7 Pulse 80 Resp 20 B/P (MAP) 121/78 Pulse Ox 99 O2 Delivery Room Air Capillary Refill : Less Than 3 Seconds General Appearance: No Apparent Distress, WD/WN HEENT: PERRL/EOMI, Pharynx Normal Neck: Non Tender, Supple Respiratory: Lungs Clear, Normal Breath Sounds Cardiovascular: Regular Rate, Rhythm, No Murmur Gastrointestinal: Non Tender, Soft Back: Normal Inspection, No CVA Tenderness, No Vertebral Tenderness Extremity: Normal Range of Motion, Non Tender, Other (gait steady) Neurologic/Psychiatric: Alert, Oriented x3 Skin: Normal Color, Warm/Dry Progress/Results/Core Measures Results/Orders My Orders Orders - KYREE PLUNKETT MD Cbc With Automated Diff (08/19/16 00:34) Comprehensive Metabolic Panel (08/19/16 00:34) Drug Screen Stat (Urine) (08/19/16 00:34) Ua Culture If Indicated (08/19/16 00:34) Saline Lock/Iv-Start (08/19/16 00:34) Ns Iv 1000 Ml (Sodium Chloride 0.9%) (08/19/16 00:34) Insulin (Regular) Human (Humulin R (Per (08/19/16 00:34) Metformin Tablet (Glucophage Tablet) (08/19/16 01:00) Glipizide Xl Tablet (Glucotrol Xl Tablet (08/19/16 01:00) Vital Signs/I&O Vital Sign - Last 12Hours 08/19/16 00:30 Temp 96.7 Pulse 80 Resp 20 B/P (MAP) 121/78 Pulse Ox 99 O2 Delivery Room Air Blood Pressure Mean: 92 Point of Care Testing Finger Stick Blood Glucose: 374 Blood Glucose Action Taken: notified Progress Note : Progress Note Seen and evaluated. IV, labs, UA, UDS, normal saline 1 L bolus, insulin 10 units IV ordered. Patient refused all further evaluation. She did allow for a fingerstick blood sugar which noted elevated glucose. She will except oral medication. This was ordered. Due to patient's desire for no further evaluation she will be discharged home with return precautions. I will write one-month prescription for glipizide and metformin. She will follow-up with her doctor for other prescriptions. Discharged home with return precautions. Patient verbalize understanding instructions and agreement with plan. Departure Impression Impression: Primary Impression: Hyperglycemia Disposition: HOME, SELF-CARE Condition: Stable Departure-Patient Inst. Decision time for Depature: 01:21 Referrals: SUNI CABEZAS MD (PCP/Family) Primary Care Physician Patient Instructions: Diabetes Type 2 (DC) Add. Discharge Instructions: All discharge instructions reviewed with patient and/or family. Voiced understanding. Take medications as directed. Follow-up with your doctor on Saturday for recheck and further evaluation and for further prescription refills. Return for worse pain, fever, vomiting, weakness, breathing problems or other concerns as needed. Scripts Glipizide (Glipizide Xl) 10 Mg Tab.er.24 10 MG PO DAILY, #30 TAB Prov: KYREE PLUNKETT MD 08/19/16 Metformin HCl (Metformin HCl) 1,000 Mg Tablet 1000 MG PO BID, #60 TAB Prov: KYREE PLUNKETT MD 08/19/16 KYREE PLUNKETT MD Aug 19, 2016 01:09
[2016-08-19] MEDS ORDERED: glipiZIDE XL 5 MG (GLUCOTROL XL) TAB PO ONE ×2 (01:14→01:45)
[2016-08-19] MEDS ORDERED: METF1000 PO (01:23)
[2016-08-19] MEDS ORDERED: GLIP-173 PO (01:23)
[2016-08-19 01:47] VITALS: BP 121/78
== END 2016-08-19 01:47 | disposition home or self-care (01) ==
LOC: EDUNIT# 00:26 → ER 00:27
DX: E11.65 Type 2 diabetes mellitus with hyperglycemia (principal); J44.9 Chronic obstructive pulmonary disease, unspecified; J45.909 Unspecified asthma, uncomplicated; I25.10 Atherosclerotic heart disease of native coronary artery without angina pectoris; F17.210 Nicotine dependence, cigarettes, uncomplicated; Z86.718 Personal history of other venous thrombosis and embolism; Z79.84 Long term (current) use of oral hypoglycemic drugs
CPT/HCPCS: 82962; 99283

== ENCOUNTER 2016-08-27 21:50 | Emergency (ER) | payer MEDICARE, MEDICAID ==
[~2016-08-27] VITALS: Ht 167.6 cm; Wt 90.7 kg
[~2016-08-27 21:50] MED LIST changes: +GLIP-173 PO; +METF1000 PO
[2016-08-27 23:47] LABS: BASOPHILS % (AUTO) 0 % (0-10); EOSINOPHILS # (AUTO) 0.2 10^3/uL (0.0-0.3); EOSINOPHILS % (AUTO) 3 % (0-10); LYMPHOCYTES % (AUTO) 43 % (12-44); MEAN CORPUSCULAR HEMOGLOBIN 30 PG (25-34); MEAN CORPUSCULAR HGB CONC 34 G/DL (32-36); MEAN CORPUSCULAR VOLUME 87 FL (80-99); MEAN PLATELET VOLUME 11.1 FL (7.4-10.4); MONOCYTES # (AUTO) 0.8 X 10^3 (0.0-1.0); MONOCYTES % (AUTO) 8 % (0-12); NEUTROPHILS # (AUTO) 4.2 X 10^3 (1.8-7.8); NEUTROPHILS % (AUTO) 46 % (42-75); PLATELET COUNT 212 10^3/uL (130-400); RED BLOOD COUNT 4.87 10^6/uL (4.35-5.85); RED CELL DISTRIBUTION WIDTH 13.4 % (10.0-14.5); WHITE BLOOD COUNT 9.2 10^3/uL (4.3-11.0)
[2016-08-28 00:05] LABS: ALANINE AMINOTRANSFERASE 20 U/L (0-55); ALBUMIN 3.7 GM/DL (3.2-4.5); AMYLASE 20 U/L (25-125); ANION GAP 12 MMOL/L (5-14); ASPARTATE AMINO TRANSFERASE 18 U/L (5-34); BILIRUBIN,TOTAL 0.7 MG/DL (0.1-1.0); BLOOD UREA NITROGEN 15 MG/DL (7-18); BUN/CREATININE RATIO 17 (0-20); CALCIUM 9.6 MG/DL (8.5-10.1); CARBON DIOXIDE 25 MMOL/L (21-32); CHLORIDE 103 MMOL/L (98-107); CREATININE SERUM 0.87 MG/DL (0.60-1.30); GFR ESTIMATED > 60; GLUCOSE 283 MG/DL (70-105); HEMOLYSIS 13 (-100-29); ICTERUS 0.4 (-100-1.9); LIPEMIA 6 (-100-49); POTASSIUM 3.1 MMOL/L (3.6-5.0); SALICYLATE < 5.0 MG/DL (5.0-20.0); SODIUM 140 MMOL/L (135-145); TOTAL PROTEIN 6.9 GM/DL (6.4-8.2)
[2016-08-28 00:08] LABS: ACETAMINOPHEN < 10 UG/ML (10-30); ALCOHOL < 10 MG/DL (<10)
[2016-08-28 00:54] LABS: BILIRUBIN,URINE NEGATIVE (NEGATIVE); KETONES,URINE NEGATIVE (NEGATIVE); LEUKOCYTE ESTERASE ,URINE 1+ (NEGATIVE); NITRITE,URINE NEGATIVE (NEGATIVE); PH,URINE 5 (5-9); PROTEIN,URINE 1+ (NEGATIVE); UROBILINOGEN,URINE NORMAL (NORMAL)
[2016-08-28 01:01] LABS: HYALINE CASTS, URINE RARE /LPF
--- NOTE | 2016-08-28 01:32 | ED General ---
General Chief Complaint: Psych/Social Disorder Stated Complaint: SUICIDAL/L LEG REDNESS/SWELLING Nursing Triage Note: PT TO ED REPORTING SUICIDAL IDEATION/HEARING VOICES, PT WANTS LEGS LOOKED AT AND ALSO REQUESTING A BED AND SHOWER Nursing Sepsis Screen: No Definite Risk Allergies and Home Medications Allergies Coded Allergies: levofloxacin (Verified Allergy, Unknown, 06/21/14) sulfamethoxazole (Unverified Allergy, Unknown, 06/21/14) trimethoprim (Unverified Allergy, Unknown, 06/21/14) Home Medications Amoxicillin 500 Mg Capsule, 1,000 MG PO BID, #40 Prescribed by: ROYCE ARGUELLO on 06/21/16 0202 Atorvastatin 20 Mg Tablet, 20 MG PO DAILY, (Reported) Brexpiprazole 2 Mg Tablet, #30 (Reported) Cefdinir 300 Mg Capsule, 300 MG PO BID, #14 Prescribed by: FRANCO MORRISSEY on 10/16/15 1640 Furosemide 20 Mg Tablet, #21 (Reported) Glipizide 10 Mg Tab.sr.24h, 10 MG PO DAILY, (Reported) Glipizide 10 Mg Tab.er.24, 10 MG PO DAILY, #30 Prescribed by: KYREE PLUNKETT on 08/19/16 0123 Hydrocodone/Acetaminophen 1 Each Tablet, 1 PO Q4H PRN for PAIN, #42 (Reported) Metformin HCl 1,000 Mg Tablet, 1,000 MG PO BID, #60 Prescribed by: KYREE PLUNKETT on 08/19/16 0123 Metformin Hcl 1,000 Mg Tablet, 1,000 MG PO BID, (Reported) Tramadol HCl 50 Mg Tablet, 50 MG PO Q6H PRN for PAIN, #10 Prescribed by: ROYCE ARGULELO on 06/21/16 0202 Venlafaxine HCl 75 Mg Cap.er.24h, 75 MG PO DAILY, #30 (Reported) Past Kbutqhw-Mwfvaa-Vhkzxa Hx Patient Social History Alcohol Use: Denies Use Recreational Drug Use: No Smoking Status: Current Everyday Smoker Type Used: Cigarettes 2nd Hand Smoke Exposure: No Recent Foreign Travel: No Contact w/Someone Who Travel: No Recent Infectious Disease Expo: No Recent Hopitalizations: No Immunizations Up To Date Tetanus Booster (TDap): Unknown Date of Pneumonia Vaccine: Jun 26, 2007 Date of Influenza Vaccine: Dec 09, 2013 Seasonal Allergies Seasonal Allergies: No Surgeries HX Surgeries: Yes (STENT IN R URETER, BACK SURGERY, SUSANA FILTER) Surgeries: Gallbladder, Hysterectomy, Orthopedic, Tubal Ligation Respiratory Hx Respiratory Disorders: Yes Respiratory Disorders: Asthma, Sleep Apnea, COPD Cardiovascular Hx Cardiac Disorders: Yes Cardiac Disorders: Coronary Artery Disease, Deep Vein Thrombosis Neurological Hx Neurological Disorders: No Neurological Disorders: Neuropathy 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 System Hx 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 Disorders: No Sexually Transmitted Disease: No HIV/AIDS: No 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 Genitourinary Hx Genitourinary Disorders: Yes Genitourinary Disorders: Kidney Stones Gastrointestinal Hx Gastrointestinal Disorders: No Gastrointestinal Disorders: Gastroesophageal Reflux Musculoskeletal Hx Musculoskeletal Disorders: Yes Musculoskeletal Disorders: Arthritis Endocrine Hx Endocrine Disorders: Yes Endocrine Disorders: Diabetes, Non-Insulin dep HEENT HX ENT Disorders: No Loss of Vision: Denies Hearing Impairment: Denies Cancer Hx Cancer: No Psychosocial Hx Psychiatric Problems: Yes Behavioral Health Disorders: Bipolar, Depression Integumentary HX Skin/Integumentary Disorder: No Blood Transfusions Hx Blood Disorders: Yes (HX OF BLOOD CLOTS) Adverse Reaction to a Blood Tr: No Family Medical History Family Medial History: Diabetes mellitus 19 FATHER EMPHYSEMA 19 FATHER EPIEPSY G8 SISTER Hypertension 19 MOTHER STROKE 19 MOTHER No Family History of: Asthma Physical Exam Vital Signs Vital Sign - Last 12Hours 08/27/16 22:54 Temp 97.5 Pulse 88 Resp 20 B/P (MAP) 145/75 Pulse Ox 95 O2 Delivery Room Air Capillary Refill : Less Than 3 Seconds Progress/Results/Core Measures Results/Orders Lab Results Laboratory Tests Test 08/27/16 23:37 08/28/16 00:45 Range/Units White Blood Count 9.2 4.3-11.0 10^3/uL Red Blood Count 4.87 4.35-5.85 10^6/uL Hemoglobin 14.5 11.5-16.0 G/DL Hematocrit 42 35-52 % Mean Corpuscular Volume 87 80-99 FL Mean Corpuscular Hemoglobin 30 25-34 PG Mean Corpuscular Hemoglobin Concent 34 32-36 G/DL Red Cell Distribution Width 13.4 10.0-14.5 % Platelet Count 212 130-400 10^3/uL Mean Platelet Volume 11.1 H 7.4-10.4 FL Neutrophils (%) (Auto) 46 42-75 % Lymphocytes (%) (Auto) 43 12-44 % Monocytes (%) (Auto) 8 0-12 % Eosinophils (%) (Auto) 3 0-10 % Basophils (%) (Auto) 0 0-10 % Neutrophils # (Auto) 4.2 1.8-7.8 X 10^3 Lymphocytes # (Auto) 4.0 1.0-4.0 X 10^3 Monocytes # (Auto) 0.8 0.0-1.0 X 10^3 Eosinophils # (Auto) 0.2 0.0-0.3 10^3/uL Basophils # (Auto) 0.0 0.0-0.1 10^3/uL Sodium Level 140 135-145 MMOL/L Potassium Level 3.1 L 3.6-5.0 MMOL/L Chloride Level 103 98-107 MMOL/L Carbon Dioxide Level 25 21-32 MMOL/L Anion Gap 12 5-14 MMOL/L Blood Urea Nitrogen 15 7-18 MG/DL Creatinine 0.87 0.60-1.30 MG/DL Estimat Glomerular Filtration Rate > 60 BUN/Creatinine Ratio 17 0-20 Glucose Level 283 H 70-105 MG/DL Calcium Level 9.6 8.5-10.1 MG/DL Total Bilirubin 0.7 0.1-1.0 MG/DL Aspartate Amino Transf (AST/SGOT) 18 5-34 U/L Alanine Aminotransferase (ALT/SGPT) 20 0-55 U/L Alkaline Phosphatase 72 40-136 U/L Total Protein 6.9 6.4-8.2 GM/DL Albumin 3.7 3.2-4.5 GM/DL Amylase Level 20 L 25-125 U/L TSH Cataño Testing 1.02 0.35-4.94 UIU/ML Salicylates Level < 5.0 L 5.0-20.0 MG/DL Acetaminophen Level < 10 L 10-30 UG/ML Serum Alcohol < 10 <10 MG/DL Urine Color YELLOW Urine Clarity CLEAR Urine pH 5 5-9 Urine Specific [place] 1.020 1.016-1.022 Urine Protein 1+ H NEGATIVE Urine Glucose (UA) 3+ H NEGATIVE Urine Ketones NEGATIVE NEGATIVE Urine Nitrite NEGATIVE NEGATIVE Urine Bilirubin NEGATIVE NEGATIVE Urine Urobilinogen NORMAL NORMAL MG/DL Urine Leukocyte Esterase 1+ H NEGATIVE Urine RBC (Auto) 1+ H NEGATIVE Urine RBC NONE /HPF Urine WBC NONE /HPF Urine Squamous Epithelial Cells 5-10 /HPF Urine Crystals NONE /LPF Urine Bacteria TRACE /HPF Urine Casts PRESENT /LPF Urine Hyaline Casts RARE /LPF Urine Mucus SMALL H /LPF Urine Culture Indicated NO Urine Opiates Screen NEGATIVE NEGATIVE Urine Oxycodone Screen NEGATIVE NEGATIVE Urine Methadone Screen NEGATIVE NEGATIVE Urine Propoxyphene Screen NEGATIVE NEGATIVE Urine Barbiturates Screen NEGATIVE NEGATIVE Ur Tricyclic Antidepressants Screen NEGATIVE NEGATIVE Urine Phencyclidine Screen NEGATIVE NEGATIVE Urine Amphetamines Screen NEGATIVE NEGATIVE Urine Methamphetamines Screen NEGATIVE NEGATIVE Urine Benzodiazepines Screen NEGATIVE NEGATIVE Urine Cocaine Screen NEGATIVE NEGATIVE Urine Cannabinoids Screen NEGATIVE NEGATIVE My Orders Orders - GIO ROTHMAN DO Ua Culture If Indicated (08/27/16 23:04) Thyroid Analyzer (08/27/16 23:04) Drug Screen Stat (Urine) (08/27/16 23:04) Cbc With Automated Diff (08/27/16 23:04) Comprehensive Metabolic Panel (08/27/16 23:04) Amylase (08/27/16 23:04) Alcohol (08/27/16 23:04) Acetaminophen (08/27/16 23:04) Salicylate (08/27/16 23:04) Ekg Tracing (08/27/16 23:04) Vital Signs/I&O Vital Sign - Last 12Hours 08/27/16 22:54 Temp 97.5 Pulse 88 Resp 20 B/P (MAP) 145/75 Pulse Ox 95 O2 Delivery Room Air Blood Pressure Mean: 98 Departure Impression Impression: Primary Impression: Homelessness Disposition: 01 HOME, SELF-CARE Condition: Stable Departure-Patient Inst. Referrals: SUNI CABEZAS MD (PCP/Family) Primary Care Physician Patient Instructions: NO INSTRUCTIONS GIVEN Add. Discharge Instructions: FOLLOW UP WITH [facility] TOMORROW FOR FURTHER CARE All discharge instructions reviewed with patient and/or family. Voiced understanding. GIO ROTHMAN DO Aug 28, 2016 01:32
[2016-08-28 02:00] VITALS: BP 145/75
--- OUTSIDE RECORDS SUMMARY | 2016-08-30 13:32 | XMS REPORT | Continuity of Care Document ---
Author Author [facility] Organization [facility] Address Unknown Phone Unavailable Care Team Providers Care Disability Specialist Name Role Phone Jorge Rocha PCP [phone] Source Comments Some departments are not documenting in the electronic medical record. If you do not see the information that you expected, contact Release of Information in the Health Information Management department at [phone] for further assistance in locating additional records.[facility] Active Allergies and Adverse Reactions Allergen [...] Active (K-DUR) 20 mEq tablet daily. exenatide(+) (BYMELVA) 10 Inject 10 mcg into Active mcg/dose(250 mcg/mL) 2.4 area(s) as directed twice mL pnij injection pen daily with meals. atorvastatin (LIPITOR) 20 Take 20 mg by mouth Active mg tablet daily. Insulin Parlier Use as directed. Active (Disposable) (BD INSULIN [...]
--- OUTSIDE RECORDS SUMMARY | 2016-08-30 13:43 | XMS REPORT | Continuity of Care Document ---
Author Author [facility] Address Unknown Phone Unavailable Allergies [...] Drug Allergy N/A N/A 11/27/2012 Yes levofloxacin [id number] Drug Allergy Unknown N/A 06/21/2014 Yes sulfamethoxazole [id number] Drug Allergy Unknown N/A 06/21/2014 Yes trimethoprim [id number] Drug Allergy Unknown N/A 06/21/2014 Medications Problems [...] MAY MD 459.81 Venous Insufficiency 06/28/2009 MUSHTAQ DIVISION ORDER TECHNICIAN, RODNEY S 250.00 DIABETES MELLITUS 06/28/2009 MUSHTAQ CASTANEDAN, RODNEY S 459.81 Venous Insufficiency 06/28/2009 PERICO RAMIRESS, ADELINA Diaz 250.00 DIABETES MELLITUS 06/28/2009 PERICO BARBOUR, ADELINA Diaz 459.81 Venous Insufficiency 06/28/2009 [...] DAN, RAIN 459.81 Venous Insufficiency 06/28/2009 MOSES DIVISION ORDER TECHNICIAN, LUIS WHEELER 250.00 DIABETES MELLITUS 06/28/2009 MOSES DIVISION ORDER TECHNICIAN, LUIS WHEELER 459.81 Venous Insufficiency 06/28/2009 WHITE [...] MAY MD 459.81 Venous Insufficiency 06/28/2009 DEMETRA DIVISION ORDER TECHNICIAN, GAURAV 250.00 DIABETES MELLITUS 06/28/2009 DEMETRA DIVISION ORDER TECHNICIAN, GAURAV 459.81 Venous Insufficiency 06/28/2009 RAIN MAY MD 250.00 DIABETES MELLITUS 06/28/2009 RAIN MAY MD9.81 Venous Insufficiency 06/28/2009 YADIRA DAN, RAIN 250.00 DIABETES MELLITUS 06/28/2009 YADIRA DAN, RAIN 459.81 Venous Insufficiency 06/28/2009 DEMETRA DIVISION ORDER TECHNICIAN, GAURAV 250.00 DIABETES MELLITUS 06/28/2009 DEMETRA DIVISION ORDER TECHNICIAN, GAURAV 459.81 Venous Insufficiency 06/28/2009 DEMETRA DIVISION ORDER TECHNICIAN, GAURAV 250.00 DIABETES MELLITUS 06/28/2009 GAURAV MCCRARY [...] V58.69 MEDICATION HIGH RISK 09/21/2009 YADIRA DAN, ARIN V58.69 MEDICATION HIGH RISK 09/21/2009 RODNEY LANDIN [...] RAIN V58.69 MEDICATION HIGH RISK 09/21/2009 YADIRA DNA, RAIN V58.69 MEDICATION HIGH RISK 09/21/2009 GAURAV [...] Of Skin And Subcutaneous Tissue 11/04/2009 DEMETRA DIVISION ORDER TECHNICIAN, GAURAV 686.9 Unspecified Local Infection Of Skin And Subcutaneous Tissue 11/04/2009 RAIN MAY MD 686.9 Unspecified Local Infection Of Skin And Subcutaneous Tissue 11/04/2009 RAIN MAY MD 686.9 Unspecified Local Infection Of Skin And Subcutaneous Tissue 11/04/2009 DEMETRA DIVISION ORDER TECHNICIAN, GAURAV 686.9 Unspecified Local Infection Of Skin And Subcutaneous Tissue 11/04/2009 DEMETRA DIVISION ORDER TECHNICIAN, GAURAV 686.9 Unspecified Local Infection Of Skin [...] Of Lower Limb, Unspecified 11/25/2009 KAILEE CARBONE DIVISION ORDER TECHNICIAN, HEAVEN N 707.10 Ulcer Of Lower Limb, Unspecified 11/25/2009 KAILEE CARBONE APRN, HEAVEN N 707.10 Ulcer Of [...] Ulcer Of Lower Limb, Unspecified 11/25/2009 DEMETRA DIVISION ORDER TECHNICIAN, GAURAV 707.10 Ulcer Of Lower Limb, Unspecified 11/25/2009 DEMETRA DIVISION ORDER TECHNICIAN, GAURAV 707.10 Ulcer Of Lower Limb, Unspecified [...] MD 783.1 Abnormal Weight Gain 01/26/2010 JAHAIRA RPAKASH DDS 783.1 Abnormal Weight Gain 01/26/2010 RAIN [...] APRN 783.1 Abnormal Weight Gain 01/26/2010 RAIN MYA MD 783.1 Abnormal Weight Gain 01/26/2010 RAIN [...] 06/02/2010 466.0 Acute Bronchitis 06/02/2010 DUGAN CASHERO DIVISION ORDER TECHNICIAN, HEAVEN N 465.9 Acute Upper Respiratory Infections Of Unspecified Site 06/02/2010 DUGAN CASHERO DIVISION ORDER TECHNICIAN, HEAVEN N 466.0 Acute Bronchitis 06/02/2010 DUGAN CASHERO DIVISION ORDER TECHNICIAN, HEAVEN N 465.9 Acute Upper Respiratory Infections Of Unspecified Site 06/02/2010 DUGAN CASHERO DIVISION ORDER TECHNICIAN, HEAVEN N 466.0 Acute Bronchitis 06/02/2010 RAIN [...] MAY MD 466.0 Acute Bronchitis 06/02/2010 MUSHTAQ DIVISION ORDER TECHNICIAN, RODNEY S 465.9 Acute Upper Respiratory Infections Of Unspecified Site 06/02/2010 MUSHTAQ DIVISION ORDER TECHNICIAN, RODNEY S 466.0 Acute Bronchitis 06/02/2010 PERICO [...] MAY MD 466.0 Acute Bronchitis 06/02/2010 MOSES DIVISION ORDER TECHNICIAN, LUIS WHEELER 465.9 Acute Upper Respiratory Infections Of Unspecified Site 06/02/2010 MOSES DIVISION ORDER TECHNICIAN, LUIS WHEELER 466.0 Acute Bronchitis 06/02/2010 WHITE [...] RAIN MAY MD 466.0 Acute Bronchitis 06/02/2010 ARIN MAY MD 465.9 Acute Upper Respiratory Infections Of Unspecified Site 06/02/2010 RAIN MAY MD 466.0 Acute Bronchitis 06/02/2010 RAIN MAY MD 465.9 Acute Upper Respiratory Infections Of Unspecified Site 06/02/2010 RAIN MAY MD 466.0 Acute Bronchitis 06/02/2010 DEMETRA DIVISION ORDER TECHNICIAN, GAURAV 465.9 Acute Upper Respiratory Infections Of Unspecified Site 06/02/2010 DEMETRA DIVISION ORDER TECHNICIAN, GAURAV 466.0 Acute Bronchitis 06/02/2010 RAIN MAY MD 465.9 Acute Upper Respiratory Infections Of Unspecified Site 06/02/2010 RAIN MAY MD 466.0 Acute Bronchitis 06/02/2010 RAIN MAY MD 465.9 Acute Upper Respiratory Infections Of Unspecified Site 06/02/2010 RAIN MAY MD 466.0 Acute Bronchitis 06/02/2010 DEMETRA DIVISION ORDER TECHNICIAN, GAURAV 465.9 Acute Upper Respiratory Infections Of Unspecified Site 06/02/2010 DEMETRA DIVISION ORDER TECHNICIAN, GAURAV 466.0 Acute Bronchitis 06/02/2010 DEMETRA DIVISION ORDER TECHNICIAN, GAURAV 465.9 Acute Upper Respiratory Infections Of Unspecified Site 06/02/2010 DEMETRA DIVISION ORDER TECHNICIAN, GAURAV 466.0 Acute Bronchitis 07/18/2010 RAIN MAY [...] DAN, RAIN 782.3 Edema 07/18/2010 MARTIN RAMIRESS, ELDER J 782.3 Edema 07/18/2010 YADIRA DAN, RAIN 782.3 Edema 07/18/2010 782.3 Edema 07/18/2010 YADIRA DAN, RAIN 782.3 Edema 07/18/2010 DWAIN BARBOUR, JAHAIRA 782.3 Edema 07/18/2010 YADIRA DAN, RIAN 782.3 Edema 07/18/2010 MOSES DIVISION ORDER TECHNICIAN, LUIS WHEELER 782.3 Edema 07/18/2010 MARTIN RAMIRESS, ELDER J 782.3 Edema 07/18/2010 YADIRA DAN, RAIN 782.3 Edema 07/18/2010 YADIRA DAN, RAIN 782.3 Edema 07/18/2010 YADIRA DAN, RAIN 782.3 Edema 07/18/2010 YADIRA DAN, RAIN 782.3 Edema 07/18/2010 YADIRA DAN, RAIN 782.3 Edema 07/18/2010 DEMETRA DIVISION ORDER TECHNICIAN, GAURAV 782.3 Edema 07/18/2010 YADIRA DAN, RAIN 782.3 Edema 07/18/2010 YADIRA DAN, RAIN 782.3 Edema 07/18/2010 DEMETRA DIVISION ORDER TECHNICIAN, GAURAV 782.3 Edema 07/18/2010 DEMETRA DIVISION ORDER TECHNICIAN, GAURAV 782.3 Edema 07/27/2010 RAIN MAY MD [...] 07/27/2010 YADIRA DAN, RAIN 724.3 Sciatica 07/27/2010 DEEMTRA DIVISION ORDER TECHNICIAN, GAURAV 724.3 Sciatica 07/27/2010 YADIRA DAN, RAIN 724.3 Sciatica 07/27/2010 YADIRA DAN, RAIN 724.3 Sciatica 07/27/2010 DEMETRA DIVISION ORDER TECHNICIAN, GAURAV 724.3 Sciatica 07/27/2010 DEMETRA DIVISION ORDER TECHNICIAN, GAURAV 724.3 Sciatica 08/12/2010 Ot 250.00 DIAB [...] Infection Site Not Specified 12/07/2010 KAILEE CARBONE DIVISION ORDER TECHNICIAN, HEAVEN N 599.0 Urinary Tract Infection Site Not Specified 12/07/2010 KAILEE CARBONE DIVISION ORDER TECHNICIAN, HEAVEN N 599.0 Urinary Tract Infection Site [...] Urinary Tract Infection Site Not Specified 12/07/2010 DEMETRA DIVISION ORDER TECHNICIANGAURAV Cruz 599.0 Urinary Tract Infection Site Not [...] MAY MD 788.30 Incontinence/enuresis Nos 12/25/2010 DEMETRA DIVISION ORDER TECHNICIAN, GAURAV 788.30 Incontinence/enuresis Nos 12/25/2010 DEMETRA CANELA, [...] Infections Of Unspecified Site 04/16/2011 DUGANSPENSER CARBONE DIVISION ORDER TECHNICIAN, HEAVEN N 722.73 INTERVERTEBRAL DISC DISORDER WITH [...] DISORDER WITH MYELOPATHY LUMBAR REGION 04/16/2011 MUSHTAQ DIVISION ORDER TECHNICIAN, RODNEY S 465.9 Acute Upper Respiratory Infections Of Unspecified Site 04/16/2011 MUSHT[employer] DIVISION ORDER TECHNICIAN, RODNEY S 722.73 INTERVERTEBRAL DISC DISORDER WITH [...] Upper Respiratory Infections Of Unspecified Site 04/16/2011 RIAN MAY MD 722.73 INTERVERTEBRAL DISC DISORDER WITH [...] DISORDER WITH MYELOPATHY LUMBAR REGION 04/16/2011 DEMETRA DIVISION ORDER TECHNICIAN, GAURAV 465.9 Acute Upper Respiratory Infections Of Unspecified Site 04/16/2011 DEMETRA CANELA GAURAV 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 04/16/2011 DEMETRA CANELA GAURAV 465.9 Acute Upper Respiratory Infections Of Unspecified Site 04/16/2011 DEMETRA DIVISION ORDER TECHNICIAN, GAURAV 722.73 INTERVERTEBRAL DISC DISORDER WITH MYELOPATHY [...] DAN, RAIN 296.80 MO BIPOLAR NOS 06/21/2011 YDAIRA DAN, RAIN 314.00 ADHD INATTENTIVE 06/21/2011 PRAKASH [...] DAN, RAIN 314.00 ADHD INATTENTIVE 06/21/2011 DEMETRA DIVISION ORDER TECHNICIAN, GAURAV 296.80 MO BIPOLAR NOS 06/21/2011 DEMETRA DIVISION ORDER TECHNICIAN, GAURAV 314.00 ADHD INATTENTIVE 06/21/2011 RAIN MAY MD 296.80 MO BIPOLAR NOS 06/21/2011 RAIN MAY MD 314.00 ADHD INATTENTIVE 06/21/2011 RAIN MAY MD 296.80 MO BIPOLAR NOS 06/21/2011 RAIN MAY MD 314.00 ADHD INATTENTIVE 06/21/2011 DEMETRA DIVISION ORDER TECHNICIAN, GAURAV 296.80 MO BIPOLAR NOS 06/21/2011 DEMETRA DIVISION ORDER TECHNICIAN, GAURAV 314.00 ADHD INATTENTIVE 06/21/2011 DEMETRA DIVISION ORDER TECHNICIAN, GAURAV 296.80 MO BIPOLAR NOS 06/21/2011 DEMETRA DIVISION ORDER TECHNICIAN, GAURAV 314.00 ADHD INATTENTIVE 07/03/2011 RAIN MAY [...] 786.05 SHORTNESS OF BREATH 10/02/2011 Ot V06.1 [id number], COMBINED [ 10/02/2011 Ot V12.51 HX-VENOUS THROMBOSIS [...] Leg Except Foot 10/04/2011 JOSE A RAMIRESS, SEGNUDO Choi 682.6 Cellulitis And Abscess Of Leg [...] Leg Except Foot 10/04/2011 HEAVEN SCHAEFFER APRN N 682.6 Cellulitis And Abscess [...] 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 12/05/2011 KAILEE CARBONE DIVISION ORDER TECHNICIAN, HEAVEN N 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 12/05/2011 [...] MD 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 12/05/2011 DEMETRA DIVISION ORDER TECHNICIAN, GAURAV 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 12/05/2011 RAIN MAY MD 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 12/05/2011 RAIN MAY MD 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 12/05/2011 DEMETRA DIVISION ORDER TECHNICIAN, GAURAV 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 12/05/2011 DEMETRA DIVISION ORDER TECHNICIAN, GAURAV 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 01/10/2012 RAIN [...] ELDER J 458.0 Orthostatic Hypotension 01/10/2012 YADIRA DNA, RAIN 458.0 Orthostatic Hypotension 01/10/2012 YADIRA DAN, RAIN 458.0 Orthostatic Hypotension 01/10/2012 YADIRA DAN, RAIN 458.0 Orthostatic Hypotension 01/10/2012 MARTIN BARBOUR, ELDER J 458.0 Orthostatic Hypotension 01/10/2012 YADIRA DAN, RAIN 458.0 Orthostatic Hypotension 01/10/2012 458.0 Orthostatic Hypotension 01/10/2012 YADIRA DAN, RAIN 458.0 Orthostatic Hypotension 01/10/2012 DWAIN BARBOUR, JAHAIRA 458.0 Orthostatic Hypotension 01/10/2012 YADIRA DAN, RAIN 458.0 Orthostatic Hypotension 01/10/2012 JOSUÉ CANELA, LUIS WHEELER 458.0 Orthostatic Hypotension 01/10/2012 MARTIN BARBOUR, ELDER J 458.0 Orthostatic Hypotension 01/10/2012 YADIRA DAN, RAIN 458.0 Orthostatic Hypotension 01/10/2012 YADIRA DAN, RAIN 458.0 Orthostatic Hypotension 01/10/2012 YADIRA DAN, RAIN 458.0 Orthostatic Hypotension 01/10/2012 YADIRA DAN, RAIN 458.0 Orthostatic Hypotension 01/10/2012 YADIRA DAN, RAIN 458.0 Orthostatic Hypotension 01/10/2012 DEMETRA DIVISION ORDER TECHNICIAN, GAURAV 458.0 Orthostatic Hypotension 01/10/2012 YADIRA DAN, RAIN 458.0 Orthostatic Hypotension 01/10/2012 YADIRA DAN, RAIN 458.0 Orthostatic Hypotension 01/10/2012 DEMETRA DIVISION ORDER TECHNICIAN, GAURAV 458.0 Orthostatic Hypotension 01/10/2012 DEMETRA DIVISION ORDER TECHNICIAN, GAURAV 458.0 Orthostatic Hypotension 02/19/2012 Ot 250.00 [...] WHEELER 250.03 Diabetes 1 Uncontrolled 04/01/2012 MOSES DIVISION ORDER TECHNICIAN, LUIS WHEELER 719.07 Edema Foot 04/01/2012 JOSUÉ [...] MD 72Max.5 BACK PAIN, GENERAL 04/01/2012 DEMETRA DIVISION ORDER TECHNICIAN, GAURAV 250.03 Diabetes 1 Uncontrolled 04/01/2012 DEMETRA DIVISION ORDER TECHNICIAN, GAURAV 719.07 Edema Foot 04/01/2012 DEMETRA DIVISION ORDER TECHNICIAN, GAURAV 724.5 BACK PAIN, GENERAL 04/01/2012 RAIN MAY MD 250.03 Diabetes 1 Uncontrolled 04/01/2012 RAIN MAY MD 719.07 Edema Foot 04/01/2012 RAIN MAY MD 724.5 BACK PAIN, GENERAL 04/01/2012 RAIN MAY MD 250.03 Diabetes 1 Uncontrolled 04/01/2012 RAIN MAY MD 719.07 Edema Foot 04/01/2012 RAIN MAY MD 724.5 BACK PAIN, GENERAL 04/01/2012 DEMETRA DIVISION ORDER TECHNICIAN, GAURAV 250.03 Diabetes 1 Uncontrolled 04/01/2012 DEMETRA DIVISION ORDER TECHNICIAN, GAURAV 719.07 Edema Foot 04/01/2012 DEMTERA DIVISION ORDER TECHNICIAN, GAURAV 724.5 BACK PAIN, GENERAL 04/01/2012 DEMETRA DIVISION ORDER TECHNICIAN, GAURAV 250.03 Diabetes 1 Uncontrolled 04/01/2012 DEMETRA DIVISION ORDER TECHNICIAN, GAURAV 719.07 Edema Foot 04/01/2012 DEMETRA DIVISION ORDER TECHNICIAN, GAURAV 724.5 BACK PAIN, GENERAL 04/18/2012 CHANDRA [...] MD 132.0 Pediculus Capitis (head Louse) 04/18/2012 JAHARIA PRAKASH DDS 132.0 Pediculus Capitis (head Louse) [...] RAIN MAY MD 457.1 OTHER LYMPHEDEMA 05/26/2012 RODNEY [...] DAN, RAIN 314.01 ADHD COMBINED 07/14/2012 DEMETRA DIVISION ORDER TECHNICIAN, GAURAV 314.01 ADHD COMBINED 07/14/2012 DEMETRA CASTANEDAN, [...] V67.9 UNSPECIFIED FOLLOW-UP EXAMINATION 08/26/2012 KAILEE MOSELEYERO DIVISION ORDER TECHNICIAN, HEAVEN N 250.02 DIABETES MELLITUS WITHOUT MENTION OF COMPLICATION TYPE II OR UNSPECIFIED TYPE UNCONTROLLED 08/26/2012 KAILEE MOSELEYERO DIVISION ORDER TECHNICIAN, HEAVEN N V67.9 UNSPECIFIED FOLLOW-UP EXAMINATION 08/26/2012 KAILEE MOSELEYERO DIVISION ORDER TECHNICIAN, HEAVEN N 250.02 DIABETES MELLITUS WITHOUT MENTION OF COMPLICATION TYPE II OR UNSPECIFIED TYPE UNCONTROLLED 08/26/2012 KAILEE MOSELEYARTURO DIVISION ORDER TECHNICIAN, HEAVEN N V67.9 UNSPECIFIED FOLLOW-UP EXAMINATION 08/26/2012 [...] SCHAEFFER APRN N 786.30 HEMOPTYSIS UNSPECIFIED 09/05/2012 ARIN MAY MD 786.30 HEMOPTYSIS UNSPECIFIED 09/05/2012 RAIN [...] CANELA, LUIS WHEELER 786.30 HEMOPTYSIS UNSPECIFIED 09/05/2012 MARTIN BARBOUR, ELDER Sims 786.30 HEMOPTYSIS UNSPECIFIED 09/05/2012 YADIRA DAN, RAIN 786.30 HEMOPTYSIS UNSPECIFIED 09/05/2012 YADIRA DAN, RAIN 786.30 HEMOPTYSIS UNSPECIFIED 09/05/2012 YADIRA DAN, RAIN 786.30 HEMOPTYSIS UNSPECIFIED 09/05/2012 RAIN MAY MD 786.30 HEMOPTYSIS UNSPECIFIED 09/05/2012 RAIN MAY MD 786.30 HEMOPTYSIS UNSPECIFIED 09/05/2012 DEMETRA DIVISION ORDER TECHNICIAN, GAURAV 786.30 HEMOPTYSIS UNSPECIFIED 09/05/2012 RAIN MAY MD 786.30 HEMOPTYSIS UNSPECIFIED 09/05/2012 RAIN MAY MD 786.30 HEMOPTYSIS UNSPECIFIED 09/05/2012 DEMETRA DIVISION ORDER TECHNICIAN, GAURAV 786.30 HEMOPTYSIS UNSPECIFIED 09/05/2012 DEMETRA CANELA, [...] I MIXED W PSYCHOTIC BEHAVIOR 11/17/2012 DEMETRA DIVISION ORDER TECHNICIAN, GAURAV 296.64 MO BIPOLAR I MIXED W PSYCHOTIC BEHAVIOR 11/17/2012 RAIN MAY MD 296.64 MO BIPOLAR I MIXED W PSYCHOTIC BEHAVIOR 11/17/2012 RAIN MAY MD 296.64 MO BIPOLAR I MIXED W PSYCHOTIC BEHAVIOR 11/17/2012 DEMETRA DIVISION ORDER TECHNICIAN, GAURAV 296.64 MO BIPOLAR I MIXED W PSYCHOTIC BEHAVIOR 11/17/2012 DEMETRA DIVISION ORDER TECHNICIAN, GAURAV 296.64 MO BIPOLAR I MIXED W [...] EXPOSURE TO OTHER VIRAL DISEASES 11/27/2012 TOBIAS SCHAEFEFR APRNCY N V69.2 HIGH-RISK SEXUAL BEHAVIOR 11/27/2012 [...] I MIXED W PSYCHOTIC BEHAVIOR 11/27/2012 MUSHTAQ DIVISION ORDER TECHNICIAN, RODNEY S V01.79 CONTACT WITH OR EXPOSURE [...] MD V69.2 HIGH-RISK SEXUAL BEHAVIOR 11/27/2012 DEMETRA DIVISION ORDER TECHNICIAN, GAURAV 296.64 MO BIPOLAR I MIXED W PSYCHOTIC BEHAVIOR 11/27/2012 DEMETRA DIVISION ORDER TECHNICIAN, GAURAV V01.79 CONTACT WITH OR EXPOSURE TO [...] MD V69.2 HIGH-RISK SEXUAL BEHAVIOR 11/27/2012 DEMETRA DIVISION ORDER TECHNICIAN, GAURAV 296.64 MO BIPOLAR I MIXED W PSYCHOTIC BEHAVIOR 11/27/2012 DEMETRA DIVISION ORDER TECHNICIAN, GAURAV V01.79 CONTACT WITH OR EXPOSURE TO OTHER VIRAL DISEASES 11/27/2012 DEMETRA CANELA GAURAV V69.2 HIGH-RISK SEXUAL BEHAVIOR 11/27/2012 DEMETRA DIVISION ORDER TECHNICIAN, GAURAV 296.64 MO BIPOLAR I MIXED W PSYCHOTIC BEHAVIOR 11/27/2012 DEMETRA DIVISION ORDER TECHNICIAN, GAURAV V01.79 CONTACT WITH OR EXPOSURE TO OTHER VIRAL DISEASES 11/27/2012 DEMETRA DIVISION ORDER TECHNICIAN, GAURAV V69.2 HIGH-RISK SEXUAL BEHAVIOR 03/09/2013 RODNEY [...] II OR UNSPECIFIED TYPE UNCONTROLLED 03/30/2013 DEMETRA DIVISION ORDER TECHNICIANGAURAV Cruz V04.81 FLU SHOT 03/30/2013 DEMETRA DIVISION ORDER TECHNICIANGAURAV Cruz V76.10 BREAST CANCER SCREENING 03/30/2013 RAIN [...] MD V76.10 BREAST CANCER SCREENING 03/30/2013 DEMETRA DIVISION ORDER TECHNICIAN, GAURAV 250.02 DIABETES MELLITUS WITHOUT MENTION OF COMPLICATION TYPE II OR UNSPECIFIED TYPE UNCONTROLLED 03/30/2013 DEMETRA DIVISION ORDER TECHNICIAN, GAURAV V04.81 FLU SHOT 03/30/2013 DEMETRA DIVISION ORDER TECHNICIAN, GAURAV V76.10 BREAST CANCER SCREENING 03/30/2013 DEMETRA CANELA, GAURAV 250.02 DIABETES MELLITUS WITHOUT MENTION OF COMPLICATION TYPE II OR UNSPECIFIED TYPE UNCONTROLLED 03/30/2013 DEMETRA DIVISION ORDER TECHNICIAN, GAURAV V04.81 FLU SHOT 03/30/2013 DEMETRA DIVISION ORDER TECHNICIAN, GAURAV V76.10 BREAST CANCER SCREENING 04/24/2013 GIO [...] INFECTION SITE NOT SPECIFIED 06/06/2014 ROLAND GONZALEZ DIVISION ORDER TECHNICIAN Ot 250.00 DIAB BHUMI WO COMPL, TYPE [...] 01/09/2015 STEPHAN OVERTON GIO Barbosa Ot Z79.01 ELECTROMECHANICAL TECHNICIAN (CURRENT) USE OF ANTICOAGULANT 01/09/2015 GIO ROTHMAN DO Ot Z86.718 PERSONAL HISTORY OF OTHER VENOUS THROMBO 01/31/2015 TONO FRENCH DO, Ot E11.9 TYPE 2 DIABETES MELLITUS WITHOUT COMPLIC 01/31/2015 TONO FRENCH DO, Ot E16.2 HYPOGLYCEMIA, UNSPECIFIED 01/31/2015 TONO FRENCH DO, Ot Z53.21 PROC/TRTMT NOT CRD OUT D/T PT LV BEF SEE 01/31/2015 TONO FRENCH DO, Ot Z79.899 OTHER ELECTROMECHANICAL TECHNICIAN (CURRENT) DRUG THERAPY 02/21/2015 TONO FRENCH DO, Ot E11.9 TYPE 2 DIABETES MELLITUS WITHOUT COMPLIC 02/21/2015 TONO FRENCH DO, Ot M79.662 PAIN IN LEFT LOWER LEG 02/21/2015 TONO FRENCH DO Ot R07.89 OTHER CHEST PAIN 02/21/2015 TONO FRENCH DO, Ot Z79.01 ALF (CURRENT) USE OF ANTICOAGULANT 02/21/2015 TONO FRENCH DO, Ot Z79.899 OTHER ELECTROMECHANICAL TECHNICIAN (CURRENT) DRUG THERAPY 02/21/2015 TONO FRENCH DO, Ot Z86.718 PERSONAL HISTORY OF OTHER VENOUS THROMBO 06/04/2015 EAMON DAN, ROYCE Payton Ot E11.9 TYPE 2 DIABETES MELLITUS WITHOUT COMPLIC 06/04/2015 EAMON DAN, ROYCE Paytno Ot F17.210 NICOTINE DEPENDENCE, CIGARETTES, UNCOMPL 06/04/2015 [...] Ot R60.0 LOCALIZED EDEMA 07/27/2015 ROLAND GONZALEZ DIVISION ORDER TECHNICIAN Ot F17.210 NICOTINE DEPENDENCE, CIGARETTES, UNCOMPL 07/27/2015 [...] F17.210 NICOTINE DEPENDENCE, CIGARETTES, UNCOMPL 07/28/2015 ROLAND OGNZALEZ APRN Ot M47.816 SPONDYLOSIS W/O MYELOPATHY OR [...] Payton Ot Z59.0 HOMELESSNESS 07/29/2015 ROLAND GONZALEZ DIVISION ORDER TECHNICIAN Ot F17.210 NICOTINE DEPENDENCE, CIGARETTES, UNCOMPL 07/29/2015 ROLAND GONZALEZ DIVISION ORDER TECHNICIAN Ot M47.816 SPONDYLOSIS W/O MYELOPATHY OR RADICULOPA 07/29/2015 ROLAND GONZALEZ DIVISION ORDER TECHNICIAN Ot N12 TUBULO-INTERSTITIAL NEPHRITIS, NOT SPCF 08/03/2015 [...] TYPE 2 DIABETES MELLITUS WITHOUT COMPLIC 10/04/2015 APOLA SWANSON MD, Ot J44.9 CHRONIC OBSTRUCTIVE PULMONARY [...] QUADRANT PAIN 01/25/2016 BRENNAN CHATMAN Ot Z79.84 ALF (CURRENT) USE OF ORAL HYPOGLYC 01/25/2016 BRENNAN CHATMAN Ot Z79.899 OTHER ELECTROMECHANICAL TECHNICIAN (CURRENT) DRUG THERAPY 01/25/2016 Ot 722.10 LUMBAR [...] QUADRANT PAIN 01/26/2016 BRENNAN CHATMAN Ot 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 01/26/2016 BRENNAN CHATMAN Ot Z79.899 OTHER ELECTROMECHANICAL TECHNICIAN (CURRENT) DRUG THERAPY 01/31/2016 BRENNAN CHATMAN Ot E11.9 TYPE 2 DIABETES MELLITUS WITHOUT COMPLIC 01/31/2016 BRENNAN CHATMAN Ot F17.210 NICOTINE DEPENDENCE, CIGARETTES, UNCOMPL 01/31/2016 BRENNAN CHATMAN Ot J06.9 ACUTE UPPER RESPIRATORY INFECTION, UNSPE 01/31/2016 BRENNAN CHATMAN Ot J44.9 CHRONIC OBSTRUCTIVE PULMONARY DISEASE, U 01/31/2016 BRENNAN CHATMAN Ot R10.32 LEFT LOWER QUADRANT PAIN 01/31/2016 BRENNAN CHATMAN Ot 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 01/31/2016 BRENNAN CHATMAN Ot Z79.899 OTHER ELECTROMECHANICAL TECHNICIAN (CURRENT) DRUG THERAPY 05/16/2016 Ot 611.71 MASTODYNIA [...] DO Ot I25.10 ATHSCL HEART DISEASE OF [place] CORONARY 05/17/2016 MAXI PINO DO Ot J44.9 CHRONIC OBSTRUCTIVE PULMONARY DISEASE , U 05/17/2016 MAXI PINO DO Ot T43.202A POISONING BY [facility] ANTIDEPRESSANTS, SELF- 05/17/2016 MAXI PINO DO Ot Y92.[address] [facility] [address] IN [facility] NON-INSTITUT ( PRIVATE 05/17/2016 MAXI PINO DO Ot 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 05/17/2016 MAXI PINO DO Ot Z79.899 OTHER ALF (CURRENT) DRUG THERAPY 05/17/2016 MAXI PINO DO Ot Z86.718 PERSONAL HISTORY OF OTHER VENOUS THROMBO 06/09/2016 OLGA NAVARRETE MD Ot 250.02 DIAB BHUMI WO COMPL, TYPE II OR UNSPEC TY 06/09/2016 OLGA NAVARRETE MD A Ot 780.4 DIZZINESS AND GIDDINESS 06/21/2016 ROYCE KNUTSON MD Ot E11.9 TYPE 2 DIABETES MELLITUS WITHOUT COMPLIC 06/21/2016 ROYCE KNUTSON MD Ot F17.210 NICOTINE DEPENDENCE, CIGARETTES, UNCOMPL 06/21/2016 ROYCE KNUTSON MD Ot H66.91 OTITIS MEDIA, UNSPECIFIED, RIGHT EAR 06/21/2016 ROYCE KNUTSON MD Ot I25.10 ATHSCL HEART DISEASE OF [place] CORONARY 06/21/2016 ROYCE KNUTSON MD Ot J39.2 OTHER DISEASES OF [place] 06/21/2016 ROYCE KNUTSON MD, Ot J40 BRONCHITIS, NOT SPECIFIED ACUTE OR CH 06/21/2016 ROYCE KNUTSON MD, Ot J44.9 CHRONIC OBSTRUCTIVE PULMONARY DISEASE , U 06/21/2016 ROYCE KNUTSON MD Ot R05 COUGH 06/21/2016 ROYCE KNUTSON MD Ot Z79.84 ALF (CURRENT) USE OF ORAL HYPOGLYC 06/21/2016 ROYCE KNUTSON MD Ot Z79.899 OTHER ALF (CURRENT) DRUG THERAPY 06/22/2016 ROLAND GONZALEZ APRN Ot E11.9 TYPE 2 DIABETES MELLITUS WITHOUT COMPLIC 06/22/2016 ROLAND GONZALEZ APRN Ot J40 BRONCHITIS, NOT SPECIFIED ACUTE OR CH 06/22/2016 ROLAND GONZALEZ APRN Ot J44.9 CHRONIC OBSTRUCTIVE PULMONARY DISEASE, U 06/22/2016 ROLAND GONZALEZ APRN Ot Z53.29 PROC/TRTMT NOT CRD OUT BEC PT DECISION F 06/22/2016 ROLAND GONZALEZ APRN Ot Z59.0 HOMELESSNESS 06/22/2016 ROLAND GONZALEZ APRN Ot 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718 PERSONAL HISTORY OF OTHER VENOUS THROMBO 08/02/2016 Ot 611.71 MASTODYNIA 08/02/2016 Ot 592.0 CALCULUS OF KIDNEY 08/02/2016 Ot 788.30 UNSPECIFIED URINARY INCONTINENCE 08/02/2016 Ot V72.83 EXAM PRE-OPERATIVE NEC 08/02/2016 Ot V74.8 SCREEN-BACTERIAL DIS NEC 08/02/2016 Ot V72.84 EXAM PRE-OPERATIVE NOS 08/02/2016 Ot 455.0 INT HEMORRHOID W/O COMPL 08/02/2016 Ot 530.11 REFLUX ESOPHAGITIS 08/02/2016 Ot 535.50 UNSP GASTRITIS GASTRODUODENITIS W/O ME 08/02/2016 Ot V16.0 FAMILY HX-GI MALIGNANCY 08/02/2016 Ot V76.51 SCREEN MAL NEOP-COLON 08/02/2016 Ot V72.84 EXAM PRE-OPERATIVE NOS 08/02/2016 RAIN MAY MD Ot V76.12 OTH SCREEN MAMMO-MALIGN NEOPLASM OF [place] 08/02/2016 Ot Z12.31 ENCNTR SCREEN MAMMOGRAM FOR MALIGNANT NE 08/02/2016 MAXI PINO DO Ot I73.9 PERIPHERAL VASCULAR DISEASE, UNSPECIFIED 08/02/2016 MAXI PINO DO Ot R60.0 LOCALIZED EDEMA 08/02/2016 PAOLA SWANSON MD Ot N13.5 CROSSING VESSEL AND STRICTURE OF URETER 08/02/2016 PAOLA SWANSON MD Ot N31.9 NEUROMUSCULAR DYSFUNCTION OF [place], UN 08/02/2016 MAXI PINO DO Ot 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] 08/02/2016 MAXI PINO DO Ot M79.89 OTHER SPECIFIED SOFT TISSUE DISORDERS 08/02/2016 ROLAND GONZALEZ APRN Ot E11.9 TYPE 2 DIABETES MELLITUS WITHOUT COMPLIC 08/02/2016 ROLAND GONZALEZ APRN Ot F31.9 BIPOLAR DISORDER, UNSPECIFIED 08/02/2016 ROLAND GONZALEZ APRN Ot I25.10 ATHSCL HEART DISEASE OF [place] CORONARY 08/02/2016 ROLAND GONZALEZ DIVISION ORDER TECHNICIAN Ot J44.9 CHRONIC OBSTRUCTIVE PULMONARY DISEASE, U 08/02/2016 ROLAND GONZALEZ APRN Ot Z59.0 HOMELESSNESS 08/02/2016 ROLAND GONZALEZ APRN Ot 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 08/03/2016 ROLAND GONZALEZ DIVISION ORDER TECHNICIAN Ot E11.9 TYPE 2 DIABETES MELLITUS WITHOUT COMPLIC 08/03/2016 ROLAND GONZALEZ APRN Ot F31.9 BIPOLAR DISORDER, UNSPECIFIED 08/03/2016 ROLAND GONZALEZ APRN Ot I25.10 ATHSCL HEART DISEASE OF [place] CORONARY 08/03/2016 ROLAND GONZALEZ APRN Ot J44.9 CHRONIC OBSTRUCTIVE PULMONARY DISEASE, U 08/03/2016 ROLAND GONZALEZ APRN Ot Z59.0 HOMELESSNESS 08/03/2016 ROLAND GONZALEZ APRN Ot Z79.84 ALF (CURRENT) USE OF ORAL HYPOGLYC 08/19/2016 KYREE PLUNKETT MD Ot E11.65 TYPE 2 DIABETES MELLITUS WITH HYPERGLYCE 08/19/2016 KYREE PLUNKETT MD Ot E11.9 TYPE 2 DIABETES MELLITUS WITHOUT COMPLIC 08/19/2016 KYREE PLUNKETT MD Ot F17.210 NICOTINE DEPENDENCE, CIGARETTES, UNCOMPL 08/19/2016 KYREE PLUNKETT MD Ot I25.10 ATHSCL HEART DISEASE OF [place] CORONARY 08/19/2016 KYREE PLUNKETT MD Ot I82.90 ACUTE EMBOLISM AND THROMBOSIS OF [place] 08/19/2016 KYREE PLUNKETT MD Ot J44.9 CHRONIC OBSTRUCTIVE PULMONARY DISEASE, U 08/19/2016 KYREE PLUNKETT MD Ot J45.909 UNSPECIFIED ASTHMA, UNCOMPLICATED 08/19/2016 KYREE PLUNKETT MD Ot R73.9 HYPERGLYCEMIA, UNSPECIFIED 08/19/2016 KYREE PLUNKETT MD Ot 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 08/19/2016 KYREE PLUNKETT MD Ot Z86.2 PRSNL HISTORY OF DIS OF THE BLD/BLD- FORM 08/19/2016 KYREE PLUNKETT MD, Ot Z86.718 PERSONAL HISTORY OF OTHER VENOUS THROMBO 08/19/2016 KYREE PLUNKETT MD Ot Z95.5 PRESENCE OF CORONARY ANGIOPLASTY IMPLANT 08/20/2016 KYREE PLUNKETT MD, Ot E11.65 TYPE 2 DIABETES MELLITUS WITH HYPERGLYCE 08/20/2016 KYREE PLUNKETT MD Ot F17.210 NICOTINE DEPENDENCE, CIGARETTES, UNCOMPL 08/20/2016 KYREE PLUNKETT MD Ot F31.9 BIPOLAR DISORDER, UNSPECIFIED 08/20/2016 KYREE PLUNKETT MD, Ot I25.10 ATHSCL HEART DISEASE OF [place] CORONARY 08/20/2016 KYREE PLUNKETT MD, Ot J44.9 CHRONIC OBSTRUCTIVE PULMONARY DISEASE, U 08/20/2016 KYREE PLUNKETT MD, Ot J45.909 UNSPECIFIED ASTHMA, UNCOMPLICATED 08/20/2016 KYREE PLUNKETT MD, Ot R73.9 HYPERGLYCEMIA, UNSPECIFIED 08/20/2016 KYREE PLUNKETT MD Ot 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 08/20/2016 KYREE PLUNKETT MD, Ot Z83.3 FAMILY HISTORY OF DIABETES MELLITUS 08/20/2016 KYREE PLUNKETT MD, Ot Z86.718 PERSONAL HISTORY OF OTHER VENOUS THROMBO 08/20/2016 KYREE PLUNKETT MD, Ot Z87.442 PERSONAL HISTORY OF URINARY CALCULI 08/20/2016 MIKAYLA SCHULTZ Ot N93.9 ABNORMAL UTERINE AND VAGINAL BLEEDING, U 08/20/2016 MIKAYLA SCHULTZ Ot Z53.21 PROC/TRTMT NOT CRD OUT D/T PT LV BEF SEE 08/20/2016 MIKAYLA SCHULTZ Ot N93.9 ABNORMAL UTERINE AND VAGINAL BLEEDING, U 08/20/2016 MIKAYLA SCHULTZ Ot Z53.21 PROC/TRTMT NOT CRD OUT D/T PT LV BEF SEE 08/20/2016 KYREE PLUNKETT MD, Ot E11.65 TYPE 2 DIABETES MELLITUS WITH HYPERGLYCE 08/20/2016 KYREE PLUNKETT MD Ot F17.210 NICOTINE DEPENDENCE, CIGARETTES, UNCOMPL 08/20/2016 KYREE PLUNKETT MD Ot F31.9 BIPOLAR DISORDER, UNSPECIFIED 08/20/2016 KYREE PLUNKETT MD Ot I25.10 ATHSCL HEART DISEASE OF [place] CORONARY 08/20/2016 KYREE PLUNKETT MD Ot J44.9 CHRONIC OBSTRUCTIVE PULMONARY DISEASE, U 08/20/2016 KYREE PLUNKETT MD Ot J45.909 UNSPECIFIED ASTHMA, UNCOMPLICATED 08/20/2016 KYREE PLUNKETT MD Ot R73.9 HYPERGLYCEMIA, UNSPECIFIED 08/20/2016 KYREE PLUNKETT MD Ot Z79.84 ALF (CURRENT) USE OF ORAL HYPOGLYC 08/20/2016 KYREE PLUNKETT MD Ot Z83.3 FAMILY HISTORY OF DIABETES MELLITUS 08/20/2016 KYREE PLUNKETT MD Ot Z86.718 PERSONAL HISTORY OF OTHER VENOUS THROMBO 08/20/2016 KYREE PLUNKETT MD Ot Z87.442 PERSONAL HISTORY OF URINARY CALCULI 08/21/2016 KYREE PLUNKETT MD Ot E11.65 TYPE 2 DIABETES MELLITUS WITH HYPERGLYCE 08/21/2016 KYREE PLUNKETT MD Ot F17.210 NICOTINE DEPENDENCE, CIGARETTES, UNCOMPL 08/21/2016 KYREE PLUNKETT MD Ot I25.10 ATHSCL HEART DISEASE OF [place] CORONARY 08/21/2016 KYREE PLUNKETT MD Ot J44.9 CHRONIC OBSTRUCTIVE PULMONARY DISEASE, U 08/21/2016 KYREE PLUNKETT MD Ot J45.909 UNSPECIFIED ASTHMA, UNCOMPLICATED 08/21/2016 KYREE PLUNKETT MD Ot R73.9 HYPERGLYCEMIA, UNSPECIFIED 08/21/2016 KYREE PLUNKETT MD Ot Z79.84 ALF (CURRENT) USE OF ORAL HYPOGLYC 08/21/2016 KYREE PLUNKETT MD Ot Z86.718 PERSONAL HISTORY OF OTHER VENOUS THROMBO 08/22/2016 KYREE PLUNKETT MD Ot E11.65 TYPE 2 DIABETES MELLITUS WITH HYPERGLYCE 08/22/2016 KYREE PLUNKETT MD Ot F17.210 NICOTINE DEPENDENCE, CIGARETTES, UNCOMPL 08/22/2016 KYREE PLUNKETT MD Ot I25.10 ATHSCL HEART DISEASE OF [place] CORONARY 08/22/2016 KYREE PLUNKETT MD, Ot J44.9 CHRONIC OBSTRUCTIVE PULMONARY DISEASE, U 08/22/2016 KYREE PLUNKETT MD Ot J45.909 UNSPECIFIED ASTHMA, UNCOMPLICATED 08/22/2016 KYREE PLUNKETT MD, Ot R73.9 HYPERGLYCEMIA, UNSPECIFIED 08/22/2016 KYREE PLUNKETT MD Ot 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 08/22/2016 KYREE PLUNKETT MD Ot Z86.718 PERSONAL HISTORY OF OTHER VENOUS THROMBO 08/22/2016 KYREE PLUNKETT MD, Ot E11.65 TYPE 2 DIABETES MELLITUS WITH HYPERGLYCE 08/22/2016 KYREE PLUNKETT MD Ot F17.210 NICOTINE DEPENDENCE, CIGARETTES, UNCOMPL 08/22/2016 KYREE PLUNKETT MD, Ot F31.9 BIPOLAR DISORDER, UNSPECIFIED 08/22/2016 KYREE PLUNKETT MD, Ot I25.10 ATHSCL HEART DISEASE OF [place] CORONARY 08/22/2016 KYREE PLUNKETT MD, Ot J44.9 CHRONIC OBSTRUCTIVE PULMONARY DISEASE, U 08/22/2016 KYREE PLUNKETT MD, Ot J45.909 UNSPECIFIED ASTHMA, UNCOMPLICATED 08/22/2016 KYREE PLUNKETT MD Ot R73.9 HYPERGLYCEMIA, UNSPECIFIED 08/22/2016 KYREE PLUNKETT MD Ot 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 08/22/2016 KYREE PLUNKETT MD Ot Z83.3 FAMILY HISTORY OF DIABETES MELLITUS 08/22/2016 KYREE PLUNKETT MD, Ot Z86.718 PERSONAL HISTORY OF OTHER VENOUS THROMBO 08/22/2016 KYREE PLUNKETT MD, Ot Z87.442 PERSONAL HISTORY OF URINARY CALCULI 08/24/2016 MIKAYLA SCHULTZ Ot N93.9 ABNORMAL UTERINE AND VAGINAL BLEEDING, U 08/24/2016 MIKAYLA SCHULTZ Ot Z53.21 PROC/TRTMT NOT CRD OUT D/T PT LV BEF SEE 08/24/2016 KYREE PLUNKETT MD, Ot E11.65 TYPE 2 DIABETES MELLITUS WITH HYPERGLYCE 08/24/2016 KYREE PLUNKETT MD Ot F17.210 NICOTINE DEPENDENCE, CIGARETTES, UNCOMPL 08/24/2016 KYREE PLUNKETT MD, Ot F31.9 BIPOLAR DISORDER, UNSPECIFIED 08/24/2016 KYREE PLUNKETT MD Ot I25.10 ATHSCL HEART DISEASE OF [place] CORONARY 08/24/2016 KYREE PLUNKETT MD Ot J44.9 CHRONIC OBSTRUCTIVE PULMONARY DISEASE, U 08/24/2016 KYREE PLUNKETT MD, Ot J45.909 UNSPECIFIED ASTHMA, UNCOMPLICATED 08/24/2016 KYREE PLUNKETT MD Ot R73.9 HYPERGLYCEMIA, UNSPECIFIED 08/24/2016 KYREE PLUNKETT MD Ot 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 08/24/2016 KYREE PLUNKETT MD Ot Z83.3 FAMILY HISTORY OF DIABETES MELLITUS 08/24/2016 KYREE PLUNKETT MD, Ot Z86.718 PERSONAL HISTORY OF OTHER VENOUS THROMBO 08/24/2016 KYREE PLUNKETT MD Ot Z87.442 PERSONAL HISTORY OF URINARY CALCULI 08/28/2016 KYREE PLUNKETT MD Ot E11.65 TYPE 2 DIABETES MELLITUS WITH HYPERGLYCE 08/28/2016 KYREE PLUNKETT MD Ot F17.210 NICOTINE DEPENDENCE, CIGARETTES, UNCOMPL 08/28/2016 KYREE PLUNKETT MD Ot F31.9 BIPOLAR DISORDER, UNSPECIFIED 08/28/2016 KYREE PLUNKETT MD Ot I25.10 ATHSCL HEART DISEASE OF [place] CORONARY 08/28/2016 KYREE PLUNKETT MD Ot J44.9 CHRONIC OBSTRUCTIVE PULMONARY DISEASE, U 08/28/2016 KYREE PLUNKETT MD Ot J45.909 UNSPECIFIED ASTHMA, UNCOMPLICATED 08/28/2016 KYREE PLUNKETT MD Ot R73.9 HYPERGLYCEMIA, UNSPECIFIED 08/28/2016 KYREE PLUNKETT MD Ot 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 08/28/2016 KYREE PLUNKETT MD Ot Z83.3 FAMILY HISTORY OF DIABETES MELLITUS 08/28/2016 KYREE PLUNKETT MD Ot Z86.718 PERSONAL HISTORY OF OTHER VENOUS THROMBO 08/28/2016 KYREE PLUNKETT MD Ot Z87.442 PERSONAL HISTORY OF URINARY CALCULI Procedures Code Description [place] [address] ROUTINE VENIPUNCTURE 01/10/2012 75362 INR (IN HOUSE) 16635 URINE DRUG SCREEN (IN-HOUSE) 01/10/2012 84996 A1C (IN-HOUSE) 71822 CBC 01/10/2012 83331 CMP 01/10/2012 [id number] GFR CALC (RESULT ONLY) 01/10/2012 82745 PSYCH IND W/MED CK 20 04/03/2012 43502 MICRO ALBUMIN-IN HOUSE 04/15/2012 59767 A1C (IN-HOUSE) 29746 MICROALBUMIN 07/2012 30203 INR (IN HOUSE) Physical Physical Therapy, [facility] 05/27/2012 09996 UA LONG DIP 07/14 31941 INR (IN HOUSE) 95225 A1C (IN-HOUSE) 94515 INR (IN HOUSE) 15621 ROUTINE VENIPUNCTURE 08/21/2012 46108 CBC 08/21/2012 14745 INR (IN HOUSE) 97580 A1C (IN-HOUSE) 24117 INR (IN HOUSE) 32040 ROUTINE VENIPUNCTURE 11/27/2012 37121 HIV ANTIBODIES (RML) 11/28/2012 76372 PSYCH DIAGNOSTIC EVALUATION 11/28/2012 44894 INR (IN HOUSE) 93384 INR (IN HOUSE) 47117 INR (IN HOUSE) 09272 A1C (IN-HOUSE) G0008 FLU ADMINISTRATION (MEDICARE ONLY) 03/30/2013 68532 MAMMOGRAM, SCREENING 04/02/2013 02732 INR (IN HOUSE) 72220 INR (IN HOUSE) 43015 A1C (IN-HOUSE) 99068 ROUTINE VENIPUNCTURE 07/08/2013 23297 CMP 07/08/2013 11191 LIPID PANEL 07/08 [id number] GFR CALC (RESULT ONLY) 07/08/2013 83009 INR (IN HOUSE) 34873 GLUCOSE FINGER STICK 12/28/2013 73704 INR (IN HOUSE) 19778 INR (IN HOUSE) 62887 A1C (IN-HOUSE) 72229 INR (IN HOUSE) 50718 INR (IN HOUSE) 03376 [employer] 2013 93096 INR (IN HOUSE) Results Test Result Range [...] culture - 10/16/15 16:20 Bacterial urine culture [id number] NRG COLONY COUNT 10,000/ML - 100,000/ML NRG [...] - 05/17/16 04:16 Magnesium 1.7 mg/dL 1.8-2.4 Influenza virus A and B antigen detection - 06/21/16 00:42 FLU RESULT NEGATIVE FOR INFLUENZA A AND B ANTIGENS BY [facility] Complete blood count (CBC) with automated white blood cell (WBC) differential - 06/21/16 00:50 Blood leukocytes automated count (number/volume) 7.0 10*3/ uL 4.3-11.0 Blood erythrocytes automated count (number/volume) 5.07 10*6 /uL 4.35-5.85 Venous blood hemoglobin measurement (mass/volume) 15.0 g/dL 11.5-16.0 Blood hematocrit (volume fraction) 44 % 35-52 Automated erythrocyte mean corpuscular volume 87 [foz_us] 80-99 Automated erythrocyte mean corpuscular hemoglobin (mass per erythrocyte) 30 pg 25-34 Automated erythrocyte mean corpuscular hemoglobin concentration measurement ( mass/volume) 34 g/dL 32-36 Automated erythrocyte distribution width ratio 12.7 % 10.0-14.5 Automated blood platelet count (count/volume) 218 10*3/uL 130-400 Automated blood platelet mean volume measurement 10.5 [foz_ us] 7.4-10.4 Automated blood neutrophils/100 leukocytes 56 % 42-75 Automated blood lymphocytes/100 leukocytes 27 % 12-44 Blood monocytes/100 leukocytes 15 % 0-12 Automated blood eosinophils/100 leukocytes 2 % 0-10 Automated blood basophils/100 leukocytes 0 % 0-10 Blood neutrophils automated count (number/volume) 3.9 10*3 1.8-7.8 Blood lymphocytes automated count (number/volume) 1.9 10*3 1.0-4.0 Blood monocytes automated count (number/volume) 1.1 10*3 0.0-1.0 Automated eosinophil count 0.1 10*3/uL 0.0-0.3 Automated blood basophil count (count/volume) 0.0 10*3/uL 0.0-0.1 PT panel in platelet poor plasma by coagulation assay - 06/21/16 00:50 Prothrombin time (PT) in platelet poor plasma by coagulation assay 17.5 s 12.2-14.7 INR in platelet poor plasma or blood by coagulation assay 1.5 0.8-1.4 Activated partial thromboplastin time (aPTT) in platelet poor plasma bycoagulation assay - 06/21/16 00:50 Activated partial thromboplastin time (aPTT) in platelet poor plasma bycoagulation assay 32 s 24-35 Comprehensive metabolic panel - 06/21/16 00:50 Serum or plasma sodium measurement (moles/volume) 137 mmol/ L 135-145 Serum or plasma potassium measurement (moles/volume) 3.9 mmol/L 3.6-5.0 Serum or plasma chloride measurement (moles/volume) 105 mmol /L 98-107 Carbon dioxide 20 mmol/L 21-32 Serum or plasma anion gap determination (moles/volume) 12 mmol/L 5-14 Serum or plasma urea nitrogen measurement (mass/volume) 12 mg/dL 7-18 Serum or plasma creatinine measurement (mass/volume) 0.77 mg /dL 0.60-1.30 Serum or plasma urea nitrogen/creatinine mass ratio 16 NRG Serum or plasma creatinine measurement with calculation of estimated glomerular filtration rate > NRG Serum or plasma glucose measurement (mass/volume) 218 mg/dL 70-105 Serum or plasma calcium measurement (mass/volume) 8.8 mg/dL 8.5-10.1 Serum or plasma total bilirubin measurement (mass/volume) 0.4 mg/dL 0.1-1.0 Serum or plasma alkaline phosphatase measurement (enzymatic activity/volume) 70 U/L 40-136 Serum or plasma aspartate aminotransferase measurement (enzymatic activity/ volume) 22 U/L 5-34 Serum or plasma alanine aminotransferase measurement (enzymatic activity/volume ) 27 U/L 0-55 Serum or plasma protein measurement (mass/volume) 7.1 g/dL 6.4-8.2 Serum or plasma albumin measurement (mass/volume) 4.0 g/dL 3.2-4.5 Complete blood count (CBC) with automated white blood cell (WBC) differential - 08/02/16 16:19 Blood leukocytes automated count (number/volume) 10.6 10*3/ uL 4.3-11.0 Blood erythrocytes automated count (number/volume) 5.02 10*6 /uL 4.35-5.85 Venous blood hemoglobin measurement (mass/volume) 15.1 g/dL 11.5-16.0 Blood hematocrit (volume fraction) 44 % 35-52 Automated erythrocyte mean corpuscular volume 87 [foz_us] 80-99 Automated erythrocyte mean corpuscular hemoglobin (mass per erythrocyte) 30 pg 25-34 Automated erythrocyte mean corpuscular hemoglobin concentration measurement ( mass/volume) 35 g/dL 32-36 Automated erythrocyte distribution width ratio 13.4 % 10.0-14.5 Automated blood platelet count (count/volume) 260 10*3/uL 130-400 Automated blood platelet mean volume measurement 11.0 [foz_ us] 7.4-10.4 Automated blood neutrophils/100 leukocytes 57 % 42-75 Automated blood lymphocytes/100 leukocytes 35 % 12-44 Blood monocytes/100 leukocytes 7 % 0-12 Automated blood eosinophils/100 leukocytes 2 % 0-10 Automated blood basophils/100 leukocytes 0 % 0-10 Blood neutrophils automated count (number/volume) 6.0 10*3 1.8-7.8 Blood lymphocytes automated count (number/volume) 3.7 10*3 1.0-4.0 Blood monocytes automated count (number/volume) 0.7 10*3 0.0-1.0 Automated eosinophil count 0.2 10*3/uL 0.0-0.3 Automated blood basophil count (count/volume) 0.0 10*3/uL 0.0-0.1 Comprehensive metabolic panel - 08/02/16 16:19 Serum or plasma sodium measurement (moles/volume) 134 mmol/ L 135-145 Serum or plasma potassium measurement (moles/volume) 4.2 mmol/L 3.6-5.0 Serum or plasma chloride measurement (moles/volume) 99 mmol/ L 98-107 Carbon dioxide 24 mmol/L 21-32 Serum or plasma anion gap determination (moles/volume) 11 mmol/L 5-14 Serum or plasma urea nitrogen measurement (mass/volume) 14 mg/dL 7-18 Serum or plasma creatinine measurement (mass/volume) 0.94 mg /dL 0.60-1.30 Serum or plasma urea nitrogen/creatinine mass ratio 15 NRG Serum or plasma creatinine measurement with calculation of estimated glomerular filtration rate > NRG Serum or plasma glucose measurement (mass/volume) 483 mg/dL 70-105 Serum or plasma calcium measurement (mass/volume) 9.3 mg/dL 8.5-10.1 Serum or plasma total bilirubin measurement (mass/volume) 0.4 mg/dL 0.1-1.0 Serum or plasma alkaline phosphatase measurement (enzymatic activity/volume) 77 U/L 40-136 Serum or plasma aspartate aminotransferase measurement (enzymatic activity/ volume) 24 U/L 5-34 Serum or plasma alanine aminotransferase measurement (enzymatic activity/volume ) 28 U/L 0-55 Serum or plasma protein measurement (mass/volume) 7.6 g/dL 6.4-8.2 Serum or plasma albumin measurement (mass/volume) 4.1 g/dL 3.2-4.5 Serum or plasma salicylates measurement (mass/volume) - 08/02/16 16:19 Serum or plasma salicylates measurement (mass/volume) < mg/ dL 5.0-20.0 Serum or plasma acetaminophen measurement (mass/volume) - 08/02/16 16:19 Serum or plasma acetaminophen measurement (mass/volume) < ug /mL 10-30 Serum or plasma ethanol measurement (mass/volume) - 08/02/16 16:19 Serum or plasma ethanol measurement (mass/volume) < mg/dL <10 Urine drug screening test - 08/02/16 17:46 Urine phencyclidine detection by screening method NEGATIVE [...] NEGATIVE Urine propoxyphene detection NEGATIVE NEGATIVE Complete urinalysis with reflex to culture - 08/02/16 17:46 Urine color determination YELLOW NRG Urine clarity determination CLEAR NRG Urine pH measurement by test strip 6 5- 9 Specific gravity of urine by test strip 1.010 1.016-1.022 Urine protein assay by test strip, semi-quantitative NEGATIVE NEGATIVE Urine glucose detection by automated test strip 4+ NEGATIVE Erythrocytes detection in urine sediment by light microscopy 1+ NEGATIVE Urine ketones detection by automated test [...] detection in urine sediment by light microscopy FEW NRG Squamous epithelial cells detection in urine sediment by light microscopy 2-5 NRG Crystals detection in urine sediment by light microscopy NONE NRG Casts detection in urine sediment by light microscopy NONE NRG Mucus detection in urine sediment by light microscopy NEGATIVE NRG Complete urinalysis with reflex to culture NO NRG Capillary blood glucose measurement by glucometer (mass/volume) - 08/02/16 18: 12 Capillary blood glucose measurement by glucometer (mass/volume) 446 mg/dL 70-110 Capillary blood glucose measurement by glucometer (mass/volume) - 08/19/16 00: 50 Capillary blood glucose measurement by glucometer (mass/volume) 374 mg/dL 70-110 Complete blood count (CBC) with automated white blood cell (WBC) differential - 08/27/16 23:37 Blood leukocytes automated count (number/volume) 9.2 10*3/ uL 4.3-11.0 Blood erythrocytes automated count (number/volume) 4.87 10*6 /uL 4.35-5.85 Venous blood hemoglobin measurement (mass/volume) 14.5 g/dL 11.5-16.0 Blood hematocrit (volume fraction) 42 % 35-52 Automated erythrocyte mean corpuscular volume 87 [foz_us] 80-99 Automated erythrocyte mean corpuscular hemoglobin (mass per erythrocyte) 30 pg 25-34 Automated erythrocyte mean corpuscular hemoglobin concentration measurement ( mass/volume) 34 g/dL 32-36 Automated erythrocyte distribution width ratio 13.4 % 10.0-14.5 Automated blood platelet count (count/volume) 212 10*3/uL 130-400 Automated blood platelet mean volume measurement 11.1 [foz_ us] 7.4-10.4 Automated blood neutrophils/100 leukocytes 46 % 42-75 Automated blood lymphocytes/100 leukocytes 43 % 12-44 Blood monocytes/100 leukocytes 8 % 0-12 Automated blood eosinophils/100 leukocytes 3 % 0-10 Automated blood basophils/100 leukocytes 0 % 0-10 Blood neutrophils automated count (number/volume) 4.2 10*3 1.8-7.8 Blood lymphocytes automated count (number/volume) 4.0 10*3 1.0-4.0 Blood monocytes automated count (number/volume) 0.8 10*3 0.0-1.0 Automated eosinophil count 0.2 10*3/uL 0.0-0.3 Automated blood basophil count (count/volume) 0.0 10*3/uL 0.0-0.1 Comprehensive metabolic panel - 08/27/16 23:37 Serum or plasma sodium measurement (moles/volume) 140 mmol/ L 135-145 Serum or plasma potassium measurement (moles/volume) 3.1 mmol/L 3.6-5.0 Serum or plasma chloride measurement (moles/volume) 103 mmol /L 98-107 Carbon dioxide 25 mmol/L 21-32 Serum or plasma anion gap determination (moles/volume) 12 mmol/L 5-14 Serum or plasma urea nitrogen measurement (mass/volume) 15 mg/dL 7-18 Serum or plasma creatinine measurement (mass/volume) 0.87 mg /dL 0.60-1.30 Serum or plasma urea nitrogen/creatinine mass ratio 17 0-20 Serum or plasma creatinine measurement with calculation of estimated glomerular filtration rate > NRG Serum or plasma glucose measurement (mass/volume) 283 mg/dL 70-105 Serum or plasma calcium measurement (mass/volume) 9.6 mg/dL 8.5-10.1 Serum or plasma total bilirubin measurement (mass/volume) 0.7 mg/dL 0.1-1.0 Serum or plasma alkaline phosphatase measurement (enzymatic activity/volume) 72 U/L 40-136 Serum or plasma aspartate aminotransferase measurement (enzymatic activity/ volume) 18 U/L 5-34 Serum or plasma alanine aminotransferase measurement (enzymatic activity/volume ) 20 U/L 0-55 Serum or plasma protein measurement (mass/volume) 6.9 g/dL 6.4-8.2 Serum or plasma albumin measurement (mass/volume) 3.7 g/dL 3.2-4.5 Serum or plasma amylase measurement (enzymatic activity/volume) - 08/27/16 23: 37 Serum or plasma amylase measurement (enzymatic activity/volume) 20 U/L 25-125 Serum or plasma thyrotropin measurement by detection limit <=0.05 miu/l (units/ volume) - 08/27/16 23:37 Serum or plasma thyrotropin measurement by detection limit <=0.05 miu/l (units/ volume) 1.02 u[iU]/mL 0.35-4.94 Serum or plasma salicylates measurement (mass/volume) - 08/27/16 23:37 Serum or plasma salicylates measurement (mass/volume) < mg/ dL 5.0-20.0 Serum or plasma acetaminophen measurement (mass/volume) - 08/27/16 23:37 Serum or plasma acetaminophen measurement (mass/volume) < ug /mL 10-30 Serum or plasma ethanol measurement (mass/volume) - 08/27/16 23:37 Serum or plasma ethanol measurement (mass/volume) < mg/dL <10 Complete urinalysis with reflex to culture - 08/28/16 00:45 Urine color determination YELLOW NRG Urine clarity determination CLEAR NRG Urine pH measurement by test strip 5 5- 9 Specific gravity of urine by test strip 1.020 1.016-1.022 Urine protein assay by test strip, semi-quantitative 1+ NEGATIVE Urine glucose detection by automated test strip 3+ NEGATIVE Erythrocytes detection in urine sediment by light microscopy 1+ NEGATIVE Urine ketones detection by automated test [...] count by microscopy (number/high power field ) NONE NRG Bacteria detection in urine sediment by light microscopy TRACE NRG Squamous epithelial cells detection in urine sediment by light microscopy 5-10 NRG Crystals detection in urine sediment by light microscopy NONE NRG Casts detection in urine sediment by light microscopy PRESENT NRG Mucus detection in urine sediment by light microscopy SMALL NRG Complete urinalysis with reflex to culture NO NRG Hyaline casts detection in urine sediment by light microscopy RARE NRG Urine drug screening test - 08/28/16 00:45 Urine phencyclidine detection by screening method NEGATIVE [...] NEGATIVE NEGATIVE Urine propoxyphene detection NEGATIVE NEGATIVE Encounters ACCT No. Visit Date/Time Discharge Status Pt. Type Provider Facility Loc./Unit Complaint [id number] 06/18/2014 13:36:00 06/18/2014 23: 59:59 CLS Outpatient GAURAV MCCRARY APRN [id number] 06/18/2014 13:36:00 06/18/2014 23: 59:59 CLS Outpatient GAURAV MCCRARY APRN [id number] 05/18/2014 14:13:00 05/18/2014 23: 59:59 CLS Outpatient RAIN MAY MD [id number] 03/08/2014 10:30:00 03/08/2014 23: 59:59 CLS Outpatient RAIN MAY MD [id number] 02/23/2014 13:20:00 02/23/2014 23: 59:59 CLS Outpatient GAURAV MCCRARY APRN [id number] 02/19/2014 10:11:00 02/19/2014 23: 59:59 CLS Outpatient RAIN MAY MD [id number] 01/25/2014 10:57:00 01/25/2014 23: 59:59 CLS Outpatient RAIN MAY MD [id number] 01/25/2014 10:57:00 01/25/2014 23: 59:59 CLS Outpatient RAIN MAY MD [id number] 01/11/2014 11:32:00 01/11/2014 23: 59:59 CLS Outpatient RAIN MAY MD [id number] 12/28/2013 09:38:00 12/28/2013 23: 59:59 CLS Outpatient RAIN MAY MD [id number] 12/08/2013 09:19:00 12/08/2013 23: 59:59 CLS Outpatient ELDER SALAZAR DDS [id number] 11/05/2013 13:03:00 11/05/2013 23: 59:59 CLS Outpatient JOSUÉ [employer] TECHNICIANLUIS [id number] 10/26/2013 09:53:00 10/26/2013 23: 59:59 CLS Outpatient PRAKASHELICEO BARBOUR, JAHAIRA [id number] 10/22/2013 09:13:00 10/22/2013 23: 59:59 CLS Outpatient RAIN MAY MD [id number] 10/22/2013 09:13:00 10/22/2013 23: 59:59 CLS Outpatient RAIN MAY MD [id number] 09/22/2013 11:39:00 09/22/2013 23: 59:59 CLS Outpatient [id number] 08/31/2013 09:47:00 08/31/2013 23: 59:59 CLS Outpatient RAIN MAY MD [id number] 07/29/2013 11:27:00 07/29/2013 23: 59:59 CLS Outpatient ELDER SALAZAR DDS [id number] 07/08/2013 08:35:00 07/08/2013 23: 59:59 CLS Outpatient RAIN MAY MD [id number] 07/07/2013 10:19:00 07/07/2013 23: 59:59 CLS Outpatient RAIN MAY MD [id number] 07/07/2013 10:19:00 07/07/2013 23: 59:59 CLS Outpatient RAIN MAY MD [id number] 06/30/2013 13:42:00 06/30/2013 23: 59:59 CLS Outpatient ELDER SALAZAR DDS [id number] 06/11/2013 09:08:00 06/11/2013 23: 59:59 CLS Outpatient RAIN MAY MD [id number] 05/12/2013 10:42:00 05/12/2013 23: 59:59 CLS Outpatient RAIN MAY MD [id number] 05/12/2013 10:42:00 05/12/2013 23: 59:59 CLS Outpatient RAIN MAY MD [id number] 03/30/2013 13:53:00 03/30/2013 23: 59:59 CLS Outpatient RAIN MAY MD [id number] 03/17/2013 09:54:00 03/17/2013 23: 59:59 CLS Outpatient ADELINA RIVER DDS [id number] 03/09/2013 12:04:00 03/09/2013 23: 59:59 CLS Outpatient RODNEY LANDIN APRN [id number] 01/29/2013 10:58:00 01/29/2013 23: 59:59 CLS Outpatient RAIN MAY MD [id number] 01/29/2013 10:58:00 01/29/2013 23: 59:59 CLS Outpatient RAIN MAY MD [id number] 01/05/2013 13:57:00 01/05/2013 23: 59:59 CLS Outpatient RAIN MAY MD [id number] 01/05/2013 13:57:00 01/05/2013 23: 59:59 CLS Outpatient RAIN MAY MD [id number] 11/27/2012 09:03:00 11/27/2012 23: 59:59 CLS Outpatient HEAVEN SCHAEFFER APRN [id number] 11/27/2012 09:03:00 11/27/2012 23: 59:59 CLS Outpatient HEAVEN SCHAEFFER APRN N [id number] 05/26/2012 14:39:00 05/26/2012 23: 59:59 CLS Outpatient RAIN MAY MD [id number] 05/09/2012 08:05:00 05/09/2012 23: 59:59 CLS Outpatient SEGUNDO NARANJO DDS [id number] 04/18/2012 10:07:00 04/18/2012 23: 59:59 CLS Outpatient CHANDRA HINTON DO [id number] 04/15/2012 13:26:00 04/15/2012 23: 59:59 CLS Outpatient [id number] 04/15/2012 13:26:00 04/15/2012 23: 59:59 CLS Outpatient [id number] 04/01/2012 08:41:00 04/01/2012 23: 59:59 CLS Outpatient RAIN MAY MD [id number] 03/06/2012 13:40:00 03/06/2012 23: 59:59 CLS Outpatient RAIN MAY MD [id number] 03/03/2012 10:53:00 03/03/2012 23: 59:59 CLS Outpatient [id number] 01/10/2012 10:19:00 01/10/2012 23: 59:59 CLS Outpatient RAIN MAY MD [id number] 01/10/2012 10:19:00 01/10/2012 23: 59:59 CLS Outpatient RAIN MAY MD [id number] 11/17/2012 11:30:00 Document Registration [id number] 09/09/2012 16:19:00 Document Registration [id number] 09/05/2012 11:44:00 Document Registration [id number] 09/05/2012 11:44:00 Document Registration [id number] 09/03/2012 09:31:00 Document Registration [id number] 08/26/2012 10:08:00 Document Registration [id number] 08/21/2012 10:15:00 Document Registration [id number] 08/05/2012 11:16:00 Document Registration [id number] 07/14/2012 15:02:00 Document Registration [id number] 07/14/2012 15:02:00 Document Registration [id number] 07/07/2012 09:52:00 Document Registration
== END 2016-08-28 02:00 | disposition home or self-care (01) ==
LOC: EDUNIT# 21:50 → ER 21:51
DX: R45.851 Suicidal ideations (principal)
CPT/HCPCS: 36415; 51701; 80053; 80306; 80320; 80329; 81000; 82150; 84443; 85025; 93005

== ENCOUNTER 2016-09-09 14:28 | Emergency (ER) | payer MEDICARE, MEDICAID ==
[~2016-09-09] VITALS: Ht 167.6 cm; Wt 85.8 kg
--- NOTE | 2016-09-09 15:01 | ED Lower Extremity ---
General Chief Complaint: Lower Extremity Stated Complaint: L LEG PAIN Nursing Triage Note: pt reports l leg pain/swelling. reports swelling is worse when she is walking. Nursing Sepsis Screen: No Definite Risk Source: patient Exam Limitations: no limitations History of Present Illness Time seen by provider: 14:59 Initial Comments To ER per EMS with left leg pain and swelling when she walks. Swelling goes down when she elevates it. 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 She denies shortness of breath. She is also homeless and would like to be admitted. When asked where she lives she states "[place]". Onset: just prior to arrival Severity: moderate Pain/Injury Location: left leg Method of Injury: unknown Modifying Factors: Worse With Movement Allergies and Home Medications Allergies Coded Allergies: levofloxacin (Verified Allergy, Unknown, 06/21/14) sulfamethoxazole (Unverified Allergy, Unknown, 06/21/14) trimethoprim (Unverified Allergy, Unknown, 06/21/14) Home Medications Amoxicillin 500 Mg Capsule, 1,000 MG PO BID, #40 Prescribed by: ROYCE ARGUELLO on 06/21/16 020 Atorvastatin 20 Mg Tablet, 20 MG PO DAILY, (Reported) Brexpiprazole 2 Mg Tablet, #30 (Reported) Cefdinir 300 Mg Capsule, 300 MG PO BID, #14 Prescribed by: FRANCO MORRISSEY on 10/16/15 1640 Furosemide 20 Mg Tablet, #21 (Reported) Glipizide 10 Mg Tab.sr.24h, 10 MG PO DAILY, (Reported) Glipizide 10 Mg Tab.er.24, 10 MG PO DAILY, #30 Prescribed by: KYREE PLUNKETT on 08/19/16 012 Hydrocodone/Acetaminophen 1 Each Tablet, 1 PO Q4H PRN for PAIN, #42 (Reported) Metformin HCl 1,000 Mg Tablet, 1,000 MG PO BID, #60 Prescribed by: KYREE PLUNKETT on 08/19/16122 Metformin Hcl 1,000 Mg Tablet, 1,000 MG PO BID, (Reported) Tramadol HCl 50 Mg Tablet, 50 MG PO Q6H PRN for PAIN, #10 Prescribed by: ROYCE ARGUELLO on 06/21/16 0202 Venlafaxine HCl 75 Mg Cap.er.24h, 75 MG PO DAILY, #30 (Reported) Constitutional: see HPI EENTM: see HPI Respiratory: no symptoms reported Cardiovascular: no symptoms reported Genitourinary: no symptoms reported Musculoskeletal: see HPI Skin: no symptoms reported Past Wxczgrs-Nrssoo-Ubkzyj Hx Patient Social History Alcohol Use: Rarely Uses Recreational Drug Use: No Smoking Status: Current Everyday Smoker Type Used: Cigarettes 2nd Hand Smoke Exposure: No Recent Foreign Travel: No Contact w/Someone Who Travel: No Recent Infectious Disease Expo: No Recent Hopitalizations: No Immunizations Up To Date Tetanus Booster (TDap): Unknown Date of Pneumonia Vaccine: Jun 26, 2007 Date of Influenza Vaccine: Dec 09, 2013 Seasonal Allergies Seasonal Allergies: No Surgeries HX Surgeries: Yes Surgeries: Gallbladder, Hysterectomy, Orthopedic, Renal, Tubal Ligation Respiratory Hx Respiratory Disorders: Yes (NO CPAP) Respiratory Disorders: Asthma, Sleep Apnea, COPD Cardiovascular Hx Cardiac Disorders: Yes (DVT LEFT LEG; CHRONIC VENOUS INSUFFICIENCY) Cardiac Disorders: Coronary Artery Disease, Deep Vein Thrombosis Neurological Hx Neurological Disorders: Yes Neurological Disorders: Neuropathy 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 System Hx 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 Disorders: No Sexually Transmitted Disease: No HIV/AIDS: 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 Genitourinary Hx Genitourinary Disorders: Yes Genitourinary Disorders: Kidney Stones Gastrointestinal Hx Gastrointestinal Disorders: Yes Gastrointestinal Disorders: Gastroesophageal Reflux Musculoskeletal Hx Musculoskeletal Disorders: Yes (CHRONIC LEG PAIN--L>R) Musculoskeletal Disorders: Arthritis, Chronic Back Pain Endocrine Hx Endocrine Disorders: Yes Endocrine Disorders: Diabetes, Non-Insulin dep HEENT HX ENT Disorders: No Loss of Vision: Denies Hearing Impairment: Denies Cancer Hx Cancer: No Psychosocial Hx Psychiatric Problems: Yes Behavioral Health Disorders: Anxiety, Suicide Attempts, Bipolar, Depression Integumentary HX Skin/Integumentary Disorder: Yes (VENOUS STASIS CHANGES TO LEGS-LEFT > RIGHT ) Blood Transfusions Hx Blood Disorders: Yes (HX OF BLOOD CLOTS) Adverse Reaction to a Blood Tr: No Family Medical History Family Medial History: Diabetes mellitus 19 FATHER EMPHYSEMA 19 FATHER EPIEPSY G8 SISTER Hypertension 19 MOTHER STROKE 19 MOTHER No Family History of: Asthma Physical Exam Vital Signs Vital Sign - Last 12Hours 09/09/16 14:34 Temp 97.5 Pulse 76 Resp 18 B/P (MAP) 121/94 Pulse Ox 95 Capillary Refill : Less Than 3 Seconds General Appearance: WD/WN, no apparent distress HEENT: PERRL/EOMI, normal ENT inspection Neck: non-tender, full range of motion Respiratory: no respiratory distress, no accessory muscle use Gastrointestinal: normal bowel sounds, non tender, soft Hips: bilateral hip non-tender, bilateral hip normal inspection, bilateral hip normal range of motion Legs: left leg pain, left leg soft tissue tenderness, bilateral leg other ( there is brownish discoloration with thickened skin circumferentially around the left lower leg consistent with a venous stasis dermatitis. Both legs are swollen.) Knees: bilateral knee non-tender, bilateral knee normal inspection, bilateral knee normal range of motion Ankles: bilateral ankle non-tender, bilateral ankle normal inspection, bilateral ankle normal range of motion Feet: bilateral foot non-tender, bilateral foot normal inspection, bilateral foot normal range of motion Neurologic/Psychiatric: alert, normal mood/affect, oriented x 3 Skin: normal color, warm/dry Progress/Results/Core Measures Results/Orders Vital Signs/I&O Vital Sign - Last 12Hours 09/09/16 14:34 Temp 97.5 Pulse 76 Resp 18 B/P (MAP) 121/94 Pulse Ox 95 Blood Pressure Mean: 103 Departure Communication Progress Notes Since the patient has a vena cava filter without symptoms of dyspnea there would be no value in ultrasound her legs. Impression Impression: Primary Impression: Post-thrombotic syndrome of left lower extremity Additional Impression: Homelessness Disposition: 01 HOME, SELF-CARE Condition: Stable Departure-Patient Inst. Decision time for Depature: 15:00 Referrals: MAXI PINO DO (PCP) Primary Care Physician Patient Instructions: NO INSTRUCTIONS GIVEN Add. Discharge Instructions: 1. Follow-up with her regular doctor All discharge instructions reviewed with patient and/or family. Voiced understanding. ROLAND GONZALEZ APRN Sep 09, 2016 15:01
[2016-09-09 15:08] VITALS: BP 120/92
--- OUTSIDE RECORDS SUMMARY | 2016-09-12 13:30 | XMS REPORT | Continuity of Care Document ---
Author Author [facility] Organization [facility] Address Unknown Phone Unavailable Care Team Providers Care Risk Consulting Treasury Director Name Role Phone Jorge Rocha PCP [phone] Source Comments Some departments are not documenting in the electronic medical record. If you do not see the information that you expected, contact Release of Information in the Health Information Management department at [phone] for further assistance in locating additional records.[facility] Active Allergies and Adverse Reactions Allergen Noted [...] by mouth Active mg tablet daily. Insulin [place] Use as directed. Active (Disposable) (BD INSULIN [...]
== END 2016-09-09 15:08 | disposition home or self-care (01) ==
LOC: EDUNIT# 14:28 → ER 14:29
DX: M79.605 Pain in left leg (principal); J44.9 Chronic obstructive pulmonary disease, unspecified; I25.10 Atherosclerotic heart disease of native coronary artery without angina pectoris; K21.9 Gastro-esophageal reflux disease without esophagitis; M19.90 Unspecified osteoarthritis, unspecified site; M54.9 Dorsalgia, unspecified; G89.29 Other chronic pain; E11.40 Type 2 diabetes mellitus with diabetic neuropathy, unspecified; F41.9 Anxiety disorder, unspecified; F31.9 Bipolar disorder, unspecified; F17.210 Nicotine dependence, cigarettes, uncomplicated; Z86.718 Personal history of other venous thrombosis and embolism; Z79.84 Long term (current) use of oral hypoglycemic drugs; Z95.828 Presence of other vascular implants and grafts
CPT/HCPCS: 82962; 99283

== ENCOUNTER 2016-09-25 11:54 | Emergency (ER) | payer MEDICARE, MEDICAID | END 2016-09-25 11:57 | disposition left against medical advice (07) | LOC: EDUNIT# 11:54 → ER 11:55 | DX: M79.89 Other specified soft tissue disorders (principal) ==

== ENCOUNTER 2016-10-07 20:09 | Emergency (ER) | payer MEDICARE, MEDICAID ==
[~2016-10-07] VITALS: Ht 167.6 cm; Wt 85.8 kg
[2016-10-07] MEDS ORDERED: HALO5TAB (20:18)
[2016-10-07 20:45] LABS: BASOPHILS % (AUTO) 0 % (0-10); EOSINOPHILS # (AUTO) 0.3 10^3/uL (0.0-0.3); EOSINOPHILS % (AUTO) 3 % (0-10); LYMPHOCYTES # (AUTO) 3.8 X 10^3 (1.0-4.0); LYMPHOCYTES % (AUTO) 42 % (12-44); MEAN CORPUSCULAR HEMOGLOBIN 30 PG (25-34); MEAN CORPUSCULAR HGB CONC 34 G/DL (32-36); MEAN CORPUSCULAR VOLUME 89 FL (80-99); MEAN PLATELET VOLUME 11.5 FL (7.4-10.4); MONOCYTES # (AUTO) 0.8 X 10^3 (0.0-1.0); MONOCYTES % (AUTO) 9 % (0-12); NEUTROPHILS # (AUTO) 4.3 X 10^3 (1.8-7.8); NEUTROPHILS % (AUTO) 47 % (42-75); PLATELET COUNT 210 10^3/uL (130-400); RED BLOOD COUNT 4.45 10^6/uL (4.35-5.85); RED CELL DISTRIBUTION WIDTH 12.8 % (10.0-14.5); WHITE BLOOD COUNT 9.2 10^3/uL (4.3-11.0)
[2016-10-07 21:07] LABS: ALANINE AMINOTRANSFERASE 21 U/L (0-55); ALBUMIN 3.6 GM/DL (3.2-4.5); ALCOHOL < 10 MG/DL (<10); ANION GAP 12 MMOL/L (5-14); ASPARTATE AMINO TRANSFERASE 16 U/L (5-34); BILIRUBIN,TOTAL 0.3 MG/DL (0.1-1.0); BLOOD UREA NITROGEN 11 MG/DL (7-18); BUN/CREATININE RATIO 16; CALCIUM 8.8 MG/DL (8.5-10.1); CARBON DIOXIDE 21 MMOL/L (21-32); CHLORIDE 106 MMOL/L (98-107); CREATININE SERUM 0.68 MG/DL (0.60-1.30); GFR ESTIMATED > 60; GLUCOSE 210 MG/DL (70-105); POTASSIUM 3.6 MMOL/L (3.6-5.0); SODIUM 139 MMOL/L (135-145); TOTAL PROTEIN 6.4 GM/DL (6.4-8.2); hs C REACTIVE PROTEIN 0.27 MG/DL (0.00-0.50)
[2016-10-07 21:08] LABS: MAGNESIUM 1.7 MG/DL (1.8-2.4)
--- NOTE | 2016-10-07 22:25 | ED General ---
General Chief Complaint: Lower Extremity Stated Complaint: LEG SWELLING Nursing Triage Note: c/o L foot swelling Nursing Sepsis Screen: No Definite Risk Source of Information: Patient, EMS, Old Records Exam Limitations: No Limitations History of Present Illness Time Seen by Provider: 20:11 Initial Comments This 51-year-old woman presents to the emergency room via EMS with complaints of pain in her left leg and syncope. She called from a local [place] where she was picked up. She states she believes her left foot is infected because it is swollen and painful. She also reports having syncopal episodes when her lower extremity swells. She was dismissed last week [facility] in [place]. She has recently restarted her medications. EMS reports fingerstick blood sugar was 226. Her edema is worse on the left where she has had prior injury and surgery. Allergies and Home Medications Allergies Coded Allergies: levofloxacin (Verified Allergy, Unknown, 06/21/14) sulfamethoxazole (Unverified Allergy, Unknown, 06/21/14) trimethoprim (Unverified Allergy, Unknown, 06/21/14) Home Medications Atorvastatin 20 Mg Tablet, 20 MG PO DAILY, (Reported) Brexpiprazole 2 Mg Tablet, #30 (Reported) Glipizide 10 Mg Tab.sr.24h, 10 MG PO DAILY, (Reported) Haloperidol 5 Mg Tablet, #30 (Reported) Metformin Hcl 1,000 Mg Tablet, 1,000 MG PO BID, (Reported) Tramadol HCl 50 Mg Tablet, 50 MG PO Q6H PRN for PAIN, #10 Prescribed by: ROYCE ARGUELLO on 06/21/16 0202 Venlafaxine HCl 75 Mg Cap.er.24h, 75 MG PO DAILY, #30 (Reported) Constitutional: no symptoms reported EENTM: no symptoms reported Respiratory: no symptoms reported Cardiovascular: see HPI Gastrointestinal: no symptoms reported Genitourinary: no symptoms reported Musculoskeletal: no symptoms reported Skin: see HPI Psychiatric/Neurological: No Symptoms Reported Hematologic/Lymphatic: No Symptoms Reported Immunological/Allergic: no symptoms reported Past Kydyaix-Zsybge-Haeilq Hx Patient Social History Alcohol Use: Denies Use Recreational Drug Use: No Smoking Status: Current Everyday Smoker Type Used: Cigarettes 2nd Hand Smoke Exposure: No Recent Foreign Travel: No Contact w/Someone Who Travel: No Recent Infectious Disease Expo: No Recent Hopitalizations: No Immunizations Up To Date Tetanus Booster (TDap): Unknown Date of Pneumonia Vaccine: Jun 26, 2007 Date of Influenza Vaccine: Dec 09, 2013 Seasonal Allergies Seasonal Allergies: No Surgeries HX Surgeries: Yes Surgeries: Gallbladder, Hysterectomy, Orthopedic, Renal, Tubal Ligation Respiratory Hx Respiratory Disorders: Yes (NO CPAP) Respiratory Disorders: Asthma, Sleep Apnea, COPD Cardiovascular Hx Cardiac Disorders: Yes (DVT LEFT LEG; CHRONIC VENOUS INSUFFICIENCY) Cardiac Disorders: Chronic Edema/Swelling, Coronary Artery Disease, Deep Vein Thrombosis Neurological Hx Neurological Disorders: Yes Neurological Disorders: Neuropathy 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 System Hx 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 Disorders: No Sexually Transmitted Disease: No 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/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 Genitourinary Hx Genitourinary Disorders: Yes Genitourinary Disorders: Kidney Stones Gastrointestinal Hx Gastrointestinal Disorders: Yes Gastrointestinal Disorders: Gastroesophageal Reflux Musculoskeletal Hx Musculoskeletal Disorders: Yes (CHRONIC LEG PAIN--L>R) Musculoskeletal Disorders: Arthritis, Chronic Back Pain Endocrine Hx Endocrine Disorders: Yes Endocrine Disorders: Diabetes, Non-Insulin dep HEENT HX ENT Disorders: No Loss of Vision: Denies Hearing Impairment: Denies Cancer Hx Cancer: No Psychosocial Hx Psychiatric Problems: Yes Behavioral Health Disorders: Anxiety, Suicide Attempts, Bipolar, Depression Integumentary HX Skin/Integumentary Disorder: Yes (VENOUS STASIS CHANGES TO LEGS-LEFT > RIGHT ) Blood Transfusions Hx Blood Disorders: Yes (HX OF BLOOD CLOTS) Adverse Reaction to a Blood Tr: No Family Medical History Family Medial History: Diabetes mellitus 19 FATHER EMPHYSEMA 19 FATHER EPIEPSY G8 SISTER Hypertension 19 MOTHER STROKE 19 MOTHER No Family History of: Asthma Physical Exam Vital Signs Vital Sign - Last 12Hours 10/07/16 20:12 Temp 98.2 Pulse 76 Resp 18 B/P (MAP) 112/75 Pulse Ox 96 Capillary Refill : Less Than 3 Seconds General Appearance: No Apparent Distress, WD/WN HEENT: PERRL/EOMI, Normal ENT Inspection Neck: Normal Inspection Respiratory: Lungs Clear, Normal Breath Sounds, No Accessory Muscle Use, No Respiratory Distress Cardiovascular: Regular Rate, Rhythm, No Murmur, Other (bilateral lower extremity edema, slightly worse on the left) Gastrointestinal: Non Tender, Soft Extremity: Pedal Edema, Swelling, Other (bilateral lower extremity edema, slightly worse on the left. Mild erythema of the feet and toes, equal bilaterally. 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 There is no evidence of infection or DVT in her labs. This seems to be an exacerbation of a chronic problem. I suggested the patient visit with her primary care provider about obtaining a prescription for compression stockings. During discussion, patient reveals that she does not have a place to stay tonight and asks to sleep in the emergency room. ER staff has had problems with this patient loitering in the past. Patient is also very inconsistent in her reports of syncope. At sometimes she states the syncope started today. Other times she states it's been going on for weeks. Sometimes she states she "passed out". At other times she states "I nod off". EKG was normal and there were no adverse events on telemetry. ECG Initial ECG Impression Date: Oct 07, 2016 Initial ECG Impression Time: 20:36 Initial ECG Rate: 63 Initial ECG Rhythm: Normal Sinus Comment Normal sinus rhythm with no ST elevation or depression. No abnormal intervals or axis deviation. Departure Impression Impression: Primary Impression: Lower extremity edema Additional Impression: History of syncope Disposition: 01 HOME, SELF-CARE Condition: Improved Departure-Patient Inst. Decision time for Depature: 22:22 Referrals: MAXI PINO DO (PCP/Family) Primary Care Physician Patient Instructions: Dependent Edema (DC), Syncope (Fainting) Add. Discharge Instructions: Follow-up with your primary care provider soon as possible. Elevate your feet as much as possible. Discussed obtaining compression stockings with your primary care provider. Return to care if symptoms worsen. All discharge instructions reviewed with patient and/or family. Voiced understanding. ROYCE KNUTSON MD Oct 07, 2016 22:25
[2016-10-07 22:28] VITALS: BP 112/75
== END 2016-10-07 22:37 | disposition home or self-care (01) ==
LOC: EDUNIT# 20:09 → ER 20:11
DX: R60.0 Localized edema (principal); R55 Syncope and collapse; F41.9 Anxiety disorder, unspecified; F31.9 Bipolar disorder, unspecified; E11.40 Type 2 diabetes mellitus with diabetic neuropathy, unspecified; M19.90 Unspecified osteoarthritis, unspecified site; K21.9 Gastro-esophageal reflux disease without esophagitis; I25.10 Atherosclerotic heart disease of native coronary artery without angina pectoris; J44.9 Chronic obstructive pulmonary disease, unspecified; F17.210 Nicotine dependence, cigarettes, uncomplicated; Z79.84 Long term (current) use of oral hypoglycemic drugs; Z98.51 Tubal ligation status; Z90.49 Acquired absence of other specified parts of digestive tract; Z86.718 Personal history of other venous thrombosis and embolism; Z90.710 Acquired absence of both cervix and uterus; Z87.442 Personal history of urinary calculi; Z91.5 Personal history of self-harm; Z86.2 Personal history of diseases of the blood and blood-forming organs and certain disorders involving the immune mechanism
CPT/HCPCS: 36415; 80053; 80306; 80320; 83735; 85025; 85379; 86141; 93005

== ENCOUNTER 2016-11-11 15:12 | Emergency (ER) | payer MEDICARE, MEDICAID ==
[~2016-11-11] VITALS: Ht 167.6 cm; Wt 85.8 kg
[~2016-11-11 15:12] MED LIST changes: +HALO5TAB
--- NOTE | 2016-11-11 15:29 | ED Psychosocial ---
General Stated Complaint: AMS/OFF MEDS Source: patient Exam Limitations: no limitations History of Present Illness Time seen by provider: 15:27 Initial Comments Ambulatory to ER with reports of anxiety, depression, nausea, diarrhea, constipation, fever, dysuria. Patient states that she ran out of her Effexor, metformin and glipizide last week. She states that she was living in an apartment in [facility] but she got off of her medications and left the apartment. She is now homeless. She reports smoking methamphetamine recently. Timing/Duration: week Severity: moderate Associated Symptoms: anxiety, impaired concentration Allergies and Home Medications Allergies Coded Allergies: levofloxacin (Verified Allergy, Unknown, 06/21/14) sulfamethoxazole (Unverified Allergy, Unknown, 06/21/14) trimethoprim (Unverified Allergy, Unknown, 06/21/14) Home Medications Atorvastatin 20 Mg Tablet, 20 MG PO DAILY, (Reported) Brexpiprazole 2 Mg Tablet, #30 (Reported) Glipizide 10 Mg Tab.sr.24h, 10 MG PO DAILY, (Reported) Haloperidol 5 Mg Tablet, #30 (Reported) Metformin HCl 500 Mg Tablet, 1,000 MG PO BID, #14 Prescribed by: ROLAND GONZALEZ on 11/11/16 1553 Metformin Hcl 1,000 Mg Tablet, 1,000 MG PO BID, (Reported) Tramadol HCl 50 Mg Tablet, 50 MG PO Q6H PRN for PAIN, #10 Prescribed by: ROYCE ARGUELLO on 06/21/16 0202 Venlafaxine HCl 75 Mg Cap.er.24h, 75 MG PO DAILY, #30 (Reported) Venlafaxine HCl 150 Mg Cap.er.24h, 150 MG PO DAILY, #14 Prescribed by: ROLAND GONZALEZ on 11/11/16 1553 Constitutional: see HPI EENTM: see HPI Respiratory: no symptoms reported Cardiovascular: no symptoms reported Genitourinary: no symptoms reported Musculoskeletal: see HPI Skin: no symptoms reported Psychiatric/Neurological: See HPI, Anxiety, Depressed Past Wuopuyq-Fmgdib-Dqzswd Hx Patient Social History Alcohol Beverage of Choice: Beer Type Used: Cigarettes 2nd Hand Smoke Exposure: No Recent Foreign Travel: No Contact w/Someone Who Travel: No Recent Hopitalizations: No Immunizations Up To Date Tetanus Booster (TDap): Unknown Date of Pneumonia Vaccine: Jun 26, 2007 Date of Influenza Vaccine: Dec 09, 2013 Seasonal Allergies Seasonal Allergies: No Surgeries History of Surgeries: Yes (STENT IN R URETER, BACK SURGERY, SUSANA FILTER) Surgeries: Gallbladder, Hysterectomy, Orthopedic, Renal, Tubal Ligation Respiratory History of Respiratory Disorde: Yes (NO CPAP) Respiratory Disorders: Asthma, Sleep Apnea, COPD Currently Using CPAP: No Currently Using BIPAP: No Cardiovascular History of Cardiac Disorders: Yes (DVT LEFT LEG; CHRONIC VENOUS INSUFFICIENCY) Cardiac Disorders: Chronic Edema/Swelling, Coronary Artery Disease, Deep Vein Thrombosis Neurological History of Neurological Disord: Yes Neurological Disorders: Neuropathy 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 System Hx 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 Disorders: No Sexually Transmitted Disease: No HIV/AIDS: 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 Genitourinary History of Genitourinary Disor: Yes Genitourinary Disorders: Kidney Stones Gastrointestinal History of Gastrointestinal Di: Yes Gastrointestinal Disorders: Gastroesophageal Reflux Musculoskeletal History of Musculoskeletal Dis: Yes (CHRONIC LEG PAIN--L>R) Musculoskeletal Disorders: Arthritis, Chronic Back Pain Endocrine History of Endocrine Disorders: Yes Endocrine Disorders: Diabetes, Non-Insulin dep HEENT History of HEENT Disorders: No Loss of Vision: Denies Hearing Impairment: Denies Cancer History of Cancer: No Psychosocial History of Psychiatric Problem: Yes Behavioral Health Disorders: Anxiety, Suicide Attempts, Bipolar, Depression Integumentary History of Skin or Integumenta: Yes (VENOUS STASIS CHANGES TO LEGS-LEFT > RIGHT ) Blood Transfusions History of Blood Disorders: Yes (HX OF BLOOD CLOTS) Adverse Reaction to a Blood Tr: No Family Medical History Family Medial History: Diabetes mellitus 19 FATHER EMPHYSEMA 19 FATHER EPIEPSY G8 SISTER Hypertension 19 MOTHER STROKE 19 MOTHER No Family History of: Asthma Physical Exam Vital Signs Vital Sign - Last 12Hours 11/11/16 15:25 Temp 98.0 Pulse 89 Resp 17 B/P (MAP) 142/78 Pulse Ox 98 O2 Delivery Room Air Capillary Refill : General Appearance: WD/WN, no apparent distress HEENT: PERRL/EOMI, normal ENT inspection Neck: non-tender, full range of motion Respiratory: no respiratory distress, no accessory muscle use Cardiovascular: regular rate, rhythm, no murmur Gastrointestinal: normal bowel sounds, non tender, soft Extremities: normal range of motion, non-tender Neurologic/Psychiatric: alert, normal mood/affect Appearance/Memory: disheveled, impaired insight Behavior/Eye Contact: cooperative, avoids eye contact, other (cheerful) Thoughts/Hallucinations: no apparent hallucination Skin: normal color, warm/dry Progress/Results/Core Measures Results/Orders Lab Results Laboratory Tests Test 11/11/16 15:29 11/11/16 15:48 Range/Units Urine Color YELLOW Urine Clarity CLEAR Urine pH 5 5-9 Urine Specific [place] 1.020 1.016-1.022 Urine Protein 2+ H NEGATIVE Urine Glucose (UA) 4+ H NEGATIVE Urine Ketones NEGATIVE NEGATIVE Urine Nitrite NEGATIVE NEGATIVE Urine Bilirubin NEGATIVE NEGATIVE Urine Urobilinogen NORMAL NORMAL MG/DL Urine Leukocyte Esterase 1+ H NEGATIVE Urine RBC (Auto) 2+ H NEGATIVE Urine RBC 0-2 /HPF Urine WBC 0-2 /HPF Urine Squamous Epithelial Cells 5-10 /HPF Urine Crystals NONE /LPF Urine Bacteria FEW H /HPF Urine Casts NONE /LPF Urine Mucus NEGATIVE /LPF Urine Culture Indicated NO Urine Opiates Screen NEGATIVE NEGATIVE Urine Oxycodone Screen NEGATIVE NEGATIVE Urine Methadone Screen NEGATIVE NEGATIVE Urine Propoxyphene Screen NEGATIVE NEGATIVE Urine Barbiturates Screen NEGATIVE NEGATIVE Ur Tricyclic Antidepressants Screen NEGATIVE NEGATIVE Urine Phencyclidine Screen NEGATIVE NEGATIVE Urine Amphetamines Screen POSITIVE H NEGATIVE Urine Methamphetamines Screen POSITIVE H NEGATIVE Urine Benzodiazepines Screen NEGATIVE NEGATIVE Urine Cocaine Screen NEGATIVE NEGATIVE Urine Cannabinoids Screen NEGATIVE NEGATIVE White Blood Count 9.3 4.3-11.0 10^3/uL Red Blood Count 4.93 4.35-5.85 10^6/uL Hemoglobin 14.8 11.5-16.0 G/DL Hematocrit 43 35-52 % Mean Corpuscular Volume 87 80-99 FL Mean Corpuscular Hemoglobin 30 25-34 PG Mean Corpuscular Hemoglobin Concent 35 32-36 G/DL Red Cell Distribution Width 12.7 10.0-14.5 % Platelet Count 256 130-400 10^3/uL Mean Platelet Volume 10.9 H 7.4-10.4 FL Neutrophils (%) (Auto) 58 42-75 % Lymphocytes (%) (Auto) 32 12-44 % Monocytes (%) (Auto) 8 0-12 % Eosinophils (%) (Auto) 2 0-10 % Basophils (%) (Auto) 0 0-10 % Neutrophils # (Auto) 5.4 1.8-7.8 X 10^3 Lymphocytes # (Auto) 3.0 1.0-4.0 X 10^3 Monocytes # (Auto) 0.8 0.0-1.0 X 10^3 Eosinophils # (Auto) 0.2 0.0-0.3 10^3/uL Basophils # (Auto) 0.0 0.0-0.1 10^3/uL Prothrombin Time 12.4 12.2-14.7 SEC INR Comment 0.9 0.8-1.4 Sodium Level 139 135-145 MMOL/L Potassium Level 3.6 3.6-5.0 MMOL/L Chloride Level 103 98-107 MMOL/L Carbon Dioxide Level 23 21-32 MMOL/L Anion Gap 13 5-14 MMOL/L Blood Urea Nitrogen 13 7-18 MG/DL Creatinine 0.88 0.60-1.30 MG/DL Estimat Glomerular Filtration Rate > 60 BUN/Creatinine Ratio 15 Glucose Level 364 H 70-105 MG/DL Calcium Level 10.2 H 8.5-10.1 MG/DL Total Bilirubin 0.8 0.1-1.0 MG/DL Aspartate Amino Transf (AST/SGOT) 21 5-34 U/L Alanine Aminotransferase (ALT/SGPT) 25 0-55 U/L Alkaline Phosphatase 88 40-136 U/L Total Protein 8.2 6.4-8.2 GM/DL Albumin 4.4 3.2-4.5 GM/DL Serum Alcohol < 10 <10 MG/DL My Orders Orders - ROLAND GONZALEZ APRN Cbc With Automated Diff (11/11/16 15:15) Comprehensive Metabolic Panel (11/11/16 15:15) Ua Culture If Indicated (11/11/16 15:15) Drug Screen Stat (Urine) (11/11/16 15:15) Alcohol (11/11/16 15:15) Protime With Inr (11/11/16 15:15) Olanzapine Orally Dissolve Tab (Zyprexa (11/11/16 15:30) Insulin (Regular) Human (Humulin R (Per (11/11/16 16:30) Medications Given in ED Current Medications Medications Dose Ordered Sig/Phuc Route Start Time Stop Time Status Last Admin Dose Admin Insulin Human Regular 6 unit ONCE ONCE SC 11/11/16 16:30 11/11/16 16:31 11/11/16 16:27 6 UNIT Vital Signs/I&O Vital Sign - Last 12Hours 11/11/16 11/11/16 15:25 16:27 Temp 98.0 98.0 Pulse 89 Resp 17 B/P (MAP) 142/78 Pulse Ox 98 O2 Delivery Room Air Departure Communication (Admissions) Progress Notes I spoke with Maureen from [facility]. She states that they did set her up with with an apartment in [place] and to her knowledge Janet has not lost the apartment Impression Impression: Primary Impression: Methamphetamine use Additional Impression: Agitation Disposition: HOME, SELF-CARE Condition: Stable Departure-Patient Inst. Decision time for Depature: 15:50 Referrals: NO,LOCAL PHYSICIAN (PCP/Family) Primary Care Physician Patient Instructions: ALCOHOL AND SUBSTANCE ABUSE Add. Discharge Instructions: 1. If you wish to speak with the [employer] line there phone number is [phone] 2. If you wish to talk to the police their phone number is [phone] Scripts Glipizide (Glipizide ER) 10 Mg Tab.er.24 10 MG PO DAILY, #10 TAB Prov: ROLAND GONZALEZ APRN 11/11/16 Venlafaxine HCl (Effexor Xr) 150 Mg Cap.er.24h 150 MG PO DAILY, #14 CAP Prov: ROLAND GONZALEZ APRN 11/11/16 Metformin HCl (Metformin HCl) 500 Mg Tablet 1000 MG PO BID, #14 TAB Prov: ROLAND GONZALEZ APRN 11/11/16 ROLAND GONZALEZ APRN Nov 11, 2016 15:29
[2016-11-11] MEDS ORDERED: OLANZapine 5 MG ODT (ZyPREXA ZYDIS) PO ONE (15:30)
[2016-11-11 15:35] LABS: BILIRUBIN,URINE NEGATIVE (NEGATIVE); KETONES,URINE NEGATIVE (NEGATIVE); LEUKOCYTE ESTERASE ,URINE 1+ (NEGATIVE); NITRITE,URINE NEGATIVE (NEGATIVE); PH,URINE 5 (5-9); PROTEIN,URINE 2+ (NEGATIVE); UROBILINOGEN,URINE NORMAL (NORMAL)
[2016-11-11 15:42] LABS: WBC,URINE 0-2 /HPF
[2016-11-11] MEDS ORDERED: VENL150C PO (15:53)
[2016-11-11] MEDS ORDERED: METF500T4 PO (15:53)
[2016-11-11 15:57] LABS: BASOPHILS % (AUTO) 0 % (0-10); EOSINOPHILS # (AUTO) 0.2 10^3/uL (0.0-0.3); EOSINOPHILS % (AUTO) 2 % (0-10); LYMPHOCYTES % (AUTO) 32 % (12-44); MEAN CORPUSCULAR HEMOGLOBIN 30 PG (25-34); MEAN CORPUSCULAR HGB CONC 35 G/DL (32-36); MEAN CORPUSCULAR VOLUME 87 FL (80-99); MEAN PLATELET VOLUME 10.9 FL (7.4-10.4); MONOCYTES # (AUTO) 0.8 X 10^3 (0.0-1.0); MONOCYTES % (AUTO) 8 % (0-12); NEUTROPHILS # (AUTO) 5.4 X 10^3 (1.8-7.8); NEUTROPHILS % (AUTO) 58 % (42-75); PLATELET COUNT 256 10^3/uL (130-400); RED BLOOD COUNT 4.93 10^6/uL (4.35-5.85); RED CELL DISTRIBUTION WIDTH 12.7 % (10.0-14.5); WHITE BLOOD COUNT 9.3 10^3/uL (4.3-11.0)
[2016-11-11 16:05] LABS: INR 0.9 (0.8-1.4); PROTHROMBIN TIME PATIENT 12.4 SEC (12.2-14.7)
[2016-11-11 16:14] LABS: ALANINE AMINOTRANSFERASE 25 U/L (0-55); ALBUMIN 4.4 GM/DL (3.2-4.5); ALCOHOL < 10 MG/DL (<10); ANION GAP 13 MMOL/L (5-14); ASPARTATE AMINO TRANSFERASE 21 U/L (5-34); BILIRUBIN,TOTAL 0.8 MG/DL (0.1-1.0); BLOOD UREA NITROGEN 13 MG/DL (7-18); BUN/CREATININE RATIO 15; CALCIUM 10.2 MG/DL (8.5-10.1); CARBON DIOXIDE 23 MMOL/L (21-32); CHLORIDE 103 MMOL/L (98-107); CREATININE SERUM 0.88 MG/DL (0.60-1.30); GFR ESTIMATED > 60; GLUCOSE 364 MG/DL (70-105); POTASSIUM 3.6 MMOL/L (3.6-5.0); SODIUM 139 MMOL/L (135-145); TOTAL PROTEIN 8.2 GM/DL (6.4-8.2)
[2016-11-11] MEDS ORDERED: inSUlin (REGULAR) HUMAN 1 UNIT/0.01 ML (CHARGE PER UNIT) SC ONE (16:30)
[2016-11-11] MEDS ORDERED: GLIP-197 PO (16:31)
[2016-11-11 16:42] VITALS: BP 142/78
== END 2016-11-11 16:42 | disposition home or self-care (01) ==
LOC: EDUNIT# 15:12 → ER 15:13
DX: R45.1 Restlessness and agitation (principal); F15.90 Other stimulant use, unspecified, uncomplicated; F31.9 Bipolar disorder, unspecified; F41.9 Anxiety disorder, unspecified; J44.9 Chronic obstructive pulmonary disease, unspecified; I25.10 Atherosclerotic heart disease of native coronary artery without angina pectoris; K21.9 Gastro-esophageal reflux disease without esophagitis; E11.40 Type 2 diabetes mellitus with diabetic neuropathy, unspecified; Z86.718 Personal history of other venous thrombosis and embolism; Z98.51 Tubal ligation status; Z90.710 Acquired absence of both cervix and uterus; Z87.442 Personal history of urinary calculi; Z91.5 Personal history of self-harm; Z79.84 Long term (current) use of oral hypoglycemic drugs
CPT/HCPCS: 36415; 80053; 80306; 80320; 81000; 85025; 85610; 96372; 99284

== ENCOUNTER 2016-11-15 16:09 | Emergency (ER) | payer MEDICARE, MEDICAID ==
[~2016-11-15] VITALS: Ht 167.6 cm; Wt 85.8 kg
[~2016-11-15 16:09] MED LIST changes: +GLIP-197 PO; +METF500T4 PO; +VENL150C PO
--- NOTE | 2016-11-15 16:36 | ED GI ---
General Chief Complaint: General Problems/Pain Stated Complaint: NOT FEELING WELL Source of Information: Patient Exam Limitations: No Limitations History of Present Illness Time Seen By Provider: 16:29 Initial Comments Patient has ER by private conveyance with a chief complaint of diarrhea for one to 2 days and diffuse mild abdominal pain and general body aches and a headache. She says she's had some chills but no objective fever. She has not been on any antibiotics for at least a couple months for an ear infection. She has been on antibiotics and had a colitis secondary to that over a year ago. She said she saw her personal doctor Dr. Burgos within the past week or 2 and he had offered her a stay in [facility] for help inpatient rehabilitation and physical therapy but she had declined at that time. She is having mild nausea but no vomiting.. Allergies and Home Medications Allergies Coded Allergies: levofloxacin (Verified Allergy, Unknown, 06/21/14) sulfamethoxazole (Unverified Allergy, Unknown, 06/21/14) trimethoprim (Unverified Allergy, Unknown, 06/21/14) Home Medications Atorvastatin 20 Mg Tablet, 20 MG PO DAILY, (Reported) Brexpiprazole 2 Mg Tablet, #30 (Reported) Glipizide 10 Mg Tab.sr.24h, 10 MG PO DAILY, (Reported) Glipizide 10 Mg Tab.er.24, 10 MG PO DAILY, #10 Prescribed by: ROLAND GONZALEZ on 11/11/16 1631 Haloperidol 5 Mg Tablet, #30 (Reported) Metformin HCl 500 Mg Tablet, 1,000 MG PO BID, #14 Prescribed by: ROLAND GONZALEZ on 11/11/16 1553 Metformin Hcl 1,000 Mg Tablet, 1,000 MG PO BID, (Reported) Tramadol HCl 50 Mg Tablet, 50 MG PO Q6H PRN for PAIN, #10 Prescribed by: ROYCE ARGUELLO on 06/21/16 0202 Venlafaxine HCl 75 Mg Cap.er.24h, 75 MG PO DAILY, #30 (Reported) Venlafaxine HCl 150 Mg Cap.er.24h, 150 MG PO DAILY, #14 Prescribed by: ROLAND GONZALEZ on 11/11/16 1553 Review of Systems Constitutional: No chills, No diaphoresis, No fever, malaise EENTM: No Eye Pain, No Ear Pain Respiratory: Denies Cough, Denies Shortness of Air Cardiovascular: Denies Chest Pain, Denies Edema Gastrointestinal: Abdominal Pain, Denies Constipated, Diarrhea, Nausea, Denies Vomiting Genitourinary: Denies Burning, Denies Discharge, Denies Frequency Musculoskeletal: No back pain, No joint pain Skin: No pruritus, No rash Psychiatric/Neurological: Headache, Denies Numbness, Denies Paresthesia Past Bdwjxmd-Jbtryf-Mfvmlj Hx Patient Social History Alcohol Beverage of Choice: Beer Type Used: Cigarettes 2nd Hand Smoke Exposure: No Recent Foreign Travel: No Contact w/Someone Who Travel: No Recent Hopitalizations: No Immunizations Up To Date Tetanus Booster (TDap): Unknown Date of Pneumonia Vaccine: Jun 26, 2007 Date of Influenza Vaccine: Dec 09, 2013 Seasonal Allergies Seasonal Allergies: No Surgeries History of Surgeries: Yes (STENT IN R URETER, BACK SURGERY, SUSANA FILTER) Surgeries: Gallbladder, Hysterectomy, Orthopedic, Renal, Tubal Ligation Respiratory History of Respiratory Disorde: Yes (NO CPAP) Respiratory Disorders: Asthma, Sleep Apnea, COPD Currently Using CPAP: No Currently Using BIPAP: No Cardiovascular History of Cardiac Disorders: Yes (DVT LEFT LEG; CHRONIC VENOUS INSUFFICIENCY) Cardiac Disorders: Chronic Edema/Swelling, Coronary Artery Disease, Deep Vein Thrombosis Neurological History of Neurological Disord: Yes Neurological Disorders: Neuropathy 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 System Hx 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 Disorders: No Sexually Transmitted Disease: No HIV/AIDS: No 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 Genitourinary History of Genitourinary Disor: Yes Genitourinary Disorders: Kidney Stones Gastrointestinal History of Gastrointestinal Di: Yes Gastrointestinal Disorders: Gastroesophageal Reflux Musculoskeletal History of Musculoskeletal Dis: Yes (CHRONIC LEG PAIN--L>R) Musculoskeletal Disorders: Arthritis, Chronic Back Pain Endocrine History of Endocrine Disorders: Yes Endocrine Disorders: Diabetes, Non-Insulin dep HEENT History of HEENT Disorders: No Loss of Vision: Denies Hearing Impairment: Denies Cancer History of Cancer: No Psychosocial History of Psychiatric Problem: Yes Behavioral Health Disorders: Anxiety, Suicide Attempts, Bipolar, Depression Integumentary History of Skin or Integumenta: Yes (VENOUS STASIS CHANGES TO LEGS-LEFT > RIGHT ) Blood Transfusions History of Blood Disorders: Yes (HX OF BLOOD CLOTS) Adverse Reaction to a Blood Tr: No Family Medical History Family Medial History: Diabetes mellitus 19 FATHER EMPHYSEMA 19 FATHER EPIEPSY G8 SISTER Hypertension 19 MOTHER STROKE 19 MOTHER No Family History of: Asthma Physical Exam Vital Signs VS - Last 72 Hours, by Label 11/15/16 16:10 Temp 98.3 Pulse 85 Resp 16 B/P (MAP) 135/76 Pulse Ox 97 O2 Delivery Room Air Capillary Refill : General Appearance: WD/WN, no apparent distress (somnolent) HEENT: PERRL/EOMI, TMs normal, pharynx normal Neck: non-tender, supple, normal inspection Respiratory: chest non-tender, lungs clear, normal breath sounds Cardiovascular: normal peripheral pulses, regular rate, rhythm, other ( bilateral lower extremity edema) Peripheral Pulses: 2+ Radial Pulses (R), 2+ Radial Pulses (L) Gastrointestinal: normal bowel sounds, non tender, soft Extremities: normal range of motion, non-tender, normal inspection, normal capillary refill Back: normal inspection, no vertebral tenderness Pelvic: normal external exam, no masses Neurologic/Psychiatric: alert, oriented x 3 Skin: normal color, warm/dry Progress/Results/Core Measures Results/Orders Lab Results Laboratory Tests Test 11/15/16 16:45 11/15/16 18:00 Range/Units White Blood Count 9.0 4.3-11.0 10^3/uL Red Blood Count 4.44 4.35-5.85 10^6/uL Hemoglobin 13.2 11.5-16.0 G/DL Hematocrit 39 35-52 % Mean Corpuscular Volume 87 80-99 FL Mean Corpuscular Hemoglobin 30 25-34 PG Mean Corpuscular Hemoglobin Concent 34 32-36 G/DL Red Cell Distribution Width 12.8 10.0-14.5 % Platelet Count 223 130-400 10^3/uL Mean Platelet Volume 10.8 H 7.4-10.4 FL Neutrophils (%) (Auto) 60 42-75 % Lymphocytes (%) (Auto) 30 12-44 % Monocytes (%) (Auto) 8 0-12 % Eosinophils (%) (Auto) 2 0-10 % Basophils (%) (Auto) 0 0-10 % Neutrophils # (Auto) 5.4 1.8-7.8 X 10^3 Lymphocytes # (Auto) 2.7 1.0-4.0 X 10^3 Monocytes # (Auto) 0.7 0.0-1.0 X 10^3 Eosinophils # (Auto) 0.2 0.0-0.3 10^3/uL Basophils # (Auto) 0.0 0.0-0.1 10^3/uL Sodium Level 142 135-145 MMOL/L Potassium Level 3.4 L 3.6-5.0 MMOL/L Chloride Level 109 H 98-107 MMOL/L Carbon Dioxide Level 25 21-32 MMOL/L Anion Gap 8 5-14 MMOL/L Blood Urea Nitrogen 9 7-18 MG/DL Creatinine 0.70 0.60-1.30 MG/DL Estimat Glomerular Filtration Rate > 60 BUN/Creatinine Ratio 13 Glucose Level 300 H 70-105 MG/DL Calcium Level 8.8 8.5-10.1 MG/DL Total Bilirubin 0.5 0.1-1.0 MG/DL Aspartate Amino Transf (AST/SGOT) 18 5-34 U/L Alanine Aminotransferase (ALT/SGPT) 21 0-55 U/L Alkaline Phosphatase 70 40-136 U/L Total Protein 6.3 L 6.4-8.2 GM/DL Albumin 3.5 3.2-4.5 GM/DL Urine Color YELLOW Urine Clarity CLEAR Urine pH 5 5-9 Urine Specific [place] 1.020 1.016-1.022 Urine Protein 1+ H NEGATIVE Urine Glucose (UA) 4+ H NEGATIVE Urine Ketones NEGATIVE NEGATIVE Urine Nitrite NEGATIVE NEGATIVE Urine Bilirubin NEGATIVE NEGATIVE Urine Urobilinogen NORMAL NORMAL MG/DL Urine Leukocyte Esterase NEGATIVE NEGATIVE Urine RBC (Auto) 1+ H NEGATIVE Urine RBC 0-2 /HPF Urine WBC NONE /HPF Urine Squamous Epithelial Cells 0-2 /HPF Urine Crystals NONE /LPF Urine Bacteria NONE /HPF Urine Casts NONE /LPF Urine Mucus SMALL H /LPF Urine Culture Indicated NO Urine Opiates Screen NEGATIVE NEGATIVE Urine Oxycodone Screen NEGATIVE NEGATIVE Urine Methadone Screen NEGATIVE NEGATIVE Urine Propoxyphene Screen NEGATIVE NEGATIVE Urine Barbiturates Screen NEGATIVE NEGATIVE Ur Tricyclic Antidepressants Screen NEGATIVE NEGATIVE Urine Phencyclidine Screen NEGATIVE NEGATIVE Urine Amphetamines Screen NEGATIVE NEGATIVE Urine Methamphetamines Screen POSITIVE H NEGATIVE Urine Benzodiazepines Screen NEGATIVE NEGATIVE Urine Cocaine Screen NEGATIVE NEGATIVE Urine Cannabinoids Screen NEGATIVE NEGATIVE My Orders Orders - JUAN RAMON DOLAN Cbc With Automated Diff (11/15/16 16:33) Comprehensive Metabolic Panel (11/15/16 16:33) Ua Culture If Indicated (11/15/16 16:33) Ondansetron Injection (Zofran Injectio (11/15/16 16:45) Drug Screen Stat (Urine) (11/15/16 16:36) Medications Given in ED Current Medications Medications Dose Ordered Sig/Phuc Route Start Time Stop Time Status Last Admin Dose Admin Ondansetron HCl 4 mg ONCE ONCE IVP 11/15/16 16:45 11/15/16 16:46 DC 11/15/16 16:47 4 MG Vital Signs/I&O Vital Sign - Last 12Hours 11/15/16 16:10 Temp 98.3 Pulse 85 Resp 16 B/P (MAP) 135/76 Pulse Ox 97 O2 Delivery Room Air Departure Impression Impression: Primary Impression: Viral gastroenteritis Disposition: HOME, SELF-CARE Condition: Stable Departure-Patient Inst. Decision time for Depature: 19:24 Referrals: NO,LOCAL PHYSICIAN (PCP/Family) Primary Care Physician Add. Discharge Instructions: Drink plenty of fluids and avoid having nausea take Zofran 1 tablet every 6 hours as needed to control your nausea. This should pass in 3-5 days if not follow up with her primary care physician. All discharge instructions reviewed with patient and/or family. Voiced understanding. JUAN RAMON DOLAN Nov 15, 2016 16:36
[2016-11-15] MEDS ORDERED: ONDANSETRON 4 MG/2 ML (SDV) Z0FRAN IVP ONE (16:45)
[2016-11-15 16:58] LABS: BASOPHILS % (AUTO) 0 % (0-10); EOSINOPHILS # (AUTO) 0.2 10^3/uL (0.0-0.3); EOSINOPHILS % (AUTO) 2 % (0-10); LYMPHOCYTES # (AUTO) 2.7 X 10^3 (1.0-4.0); LYMPHOCYTES % (AUTO) 30 % (12-44); MEAN CORPUSCULAR HEMOGLOBIN 30 PG (25-34); MEAN CORPUSCULAR HGB CONC 34 G/DL (32-36); MEAN CORPUSCULAR VOLUME 87 FL (80-99); MEAN PLATELET VOLUME 10.8 FL (7.4-10.4); MONOCYTES # (AUTO) 0.7 X 10^3 (0.0-1.0); MONOCYTES % (AUTO) 8 % (0-12); NEUTROPHILS # (AUTO) 5.4 X 10^3 (1.8-7.8); NEUTROPHILS % (AUTO) 60 % (42-75); PLATELET COUNT 223 10^3/uL (130-400); RED BLOOD COUNT 4.44 10^6/uL (4.35-5.85); RED CELL DISTRIBUTION WIDTH 12.8 % (10.0-14.5)
[2016-11-15 17:15] LABS: ALANINE AMINOTRANSFERASE 21 U/L (0-55); ALBUMIN 3.5 GM/DL (3.2-4.5); ANION GAP 8 MMOL/L (5-14); ASPARTATE AMINO TRANSFERASE 18 U/L (5-34); BILIRUBIN,TOTAL 0.5 MG/DL (0.1-1.0); BLOOD UREA NITROGEN 9 MG/DL (7-18); BUN/CREATININE RATIO 13; CALCIUM 8.8 MG/DL (8.5-10.1); CARBON DIOXIDE 25 MMOL/L (21-32); CHLORIDE 109 MMOL/L (98-107); GFR ESTIMATED > 60; GLUCOSE 300 MG/DL (70-105); POTASSIUM 3.4 MMOL/L (3.6-5.0); SODIUM 142 MMOL/L (135-145); TOTAL PROTEIN 6.3 GM/DL (6.4-8.2)
[2016-11-15 18:13] LABS: BILIRUBIN,URINE NEGATIVE (NEGATIVE); KETONES,URINE NEGATIVE (NEGATIVE); LEUKOCYTE ESTERASE ,URINE NEGATIVE (NEGATIVE); NITRITE,URINE NEGATIVE (NEGATIVE); PH,URINE 5 (5-9); PROTEIN,URINE 1+ (NEGATIVE); UROBILINOGEN,URINE NORMAL (NORMAL)
[2016-11-15 18:42] LABS: SQUAMOUS EPITHELIAL CELL,UR 0-2 /HPF
[2016-11-15] MEDS ORDERED: RX-ONDANSETRON 4 MG ODT (ZOFRAN) PPK #4 PO STA (19:25)
[2016-11-15 19:34] VITALS: BP 135/76
== END 2016-11-15 19:34 | disposition home or self-care (01) ==
LOC: EDUNIT# 16:09 → ER 16:10
DX: A08.4 Viral intestinal infection, unspecified (principal); F32.9 Major depressive disorder, single episode, unspecified; F41.9 Anxiety disorder, unspecified; E11.40 Type 2 diabetes mellitus with diabetic neuropathy, unspecified; K21.9 Gastro-esophageal reflux disease without esophagitis; I25.10 Atherosclerotic heart disease of native coronary artery without angina pectoris; R60.9 Edema, unspecified; J44.9 Chronic obstructive pulmonary disease, unspecified; Z91.5 Personal history of self-harm; Z86.718 Personal history of other venous thrombosis and embolism; Z87.442 Personal history of urinary calculi; Z90.710 Acquired absence of both cervix and uterus; Z98.51 Tubal ligation status; Z96.0 Presence of urogenital implants; Z79.84 Long term (current) use of oral hypoglycemic drugs
CPT/HCPCS: 36415; 80053; 80306; 81000; 85025; 96374

== ENCOUNTER 2016-12-19 17:37 | Emergency (ER) | payer MEDICARE, MEDICAID ==
[~2016-12-19] VITALS: Ht 167.6 cm; Wt 81.6 kg
--- NOTE | 2016-12-19 17:55 | ED Lower Extremity ---
General Chief Complaint: Lower Extremity Stated Complaint: L FOOT SWELLING Source: patient Exam Limitations: no limitations History of Present Illness Time seen by provider: 17:53 Initial Comments To ER with left lower extremity swelling. When asked how long she screams "I don't know!". She has soiled herself in route to the hospital in the ambulance. . Patient has recently been prescribed antibiotics at the [facility] on Saturday the 60s she states. However, she forgets to take them and hasn't taken them. Onset: other Severity: moderate Pain/Injury Location: left leg Allergies and Home Medications Allergies Coded Allergies: levofloxacin (Verified Allergy, Unknown, 06/21/14) sulfamethoxazole (Unverified Allergy, Unknown, 06/21/14) trimethoprim (Unverified Allergy, Unknown, 06/21/14) Home Medications Atorvastatin 20 Mg Tablet, 20 MG PO DAILY, (Reported) Brexpiprazole 2 Mg Tablet, #30 (Reported) Glipizide 10 Mg Tab.sr.24h, 10 MG PO DAILY, (Reported) Glipizide 10 Mg Tab.er.24, 10 MG PO DAILY, #10 Prescribed by: ROLAND GONZALEZ on 11/11/16 1631 Haloperidol 5 Mg Tablet, #30 (Reported) Metformin HCl 500 Mg Tablet, 1,000 MG PO BID, #14 Prescribed by: ROLAND GONZALEZ on 11/11/16 1553 Metformin Hcl 1,000 Mg Tablet, 1,000 MG PO BID, (Reported) Tramadol HCl 50 Mg Tablet, 50 MG PO Q6H PRN for PAIN, #10 Prescribed by: RYOCE ARGUELLO on 06/21/16 0202 Venlafaxine HCl 75 Mg Cap.er.24h, 75 MG PO DAILY, #30 (Reported) Venlafaxine HCl 150 Mg Cap.er.24h, 150 MG PO DAILY, #14 Prescribed by: ROLAND GONZALEZ on 11/11/16 1553 Constitutional: see HPI EENTM: see HPI Respiratory: no symptoms reported Cardiovascular: no symptoms reported Genitourinary: no symptoms reported Musculoskeletal: see HPI Skin: no symptoms reported Psychiatric/Neurological: No Symptoms Reported Past Fdpawjq-Qnupeu-Dqwxln Hx Patient Social History Alcohol Beverage of Choice: Beer Type Used: Cigarettes 2nd Hand Smoke Exposure: No Recent Hopitalizations: No Immunizations Up To Date Tetanus Booster (TDap): Unknown Date of Pneumonia Vaccine: Jun 26, 2007 Date of Influenza Vaccine: Dec 09, 2013 Seasonal Allergies Seasonal Allergies: No Surgeries History of Surgeries: Yes (STENT IN R URETER, BACK SURGERY, SUSANA FILTER) Surgeries: Gallbladder, Hysterectomy, Orthopedic, Renal, Tubal Ligation Respiratory History of Respiratory Disorde: Yes (NO CPAP) Respiratory Disorders: Asthma, Sleep Apnea, COPD Currently Using CPAP: No Currently Using BIPAP: No Cardiovascular History of Cardiac Disorders: Yes (DVT LEFT LEG; CHRONIC VENOUS INSUFFICIENCY) Cardiac Disorders: Chronic Edema/Swelling, Coronary Artery Disease, Deep Vein Thrombosis Neurological History of Neurological Disord: Yes Neurological Disorders: Neuropathy 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 System Hx 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 Disorders: No Sexually Transmitted Disease: No 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 Genitourinary History of Genitourinary Disor: Yes Genitourinary Disorders: Kidney Stones Gastrointestinal History of Gastrointestinal Di: Yes Gastrointestinal Disorders: Gastroesophageal Reflux Musculoskeletal History of Musculoskeletal Dis: Yes (CHRONIC LEG PAIN--L>R) Musculoskeletal Disorders: Arthritis, Chronic Back Pain Endocrine History of Endocrine Disorders: Yes Endocrine Disorders: Diabetes, Non-Insulin dep HEENT History of HEENT Disorders: No Loss of Vision: Denies Hearing Impairment: Denies Cancer History of Cancer: No Psychosocial History of Psychiatric Problem: Yes Behavioral Health Disorders: Anxiety, Suicide Attempts, Bipolar, Depression Integumentary History of Skin or Integumenta: Yes (VENOUS STASIS CHANGES TO LEGS-LEFT > RIGHT ) Blood Transfusions History of Blood Disorders: Yes (HX OF BLOOD CLOTS) Adverse Reaction to a Blood Tr: No Family Medical History Family Medial History: Diabetes mellitus 19 FATHER EMPHYSEMA 19 FATHER EPIEPSY G8 SISTER Hypertension 19 MOTHER STROKE 19 MOTHER No Family History of: Asthma Physical Exam Vital Signs Capillary Refill : General Appearance: WD/WN, no apparent distress HEENT: PERRL/EOMI, normal ENT inspection Neck: non-tender, full range of motion Respiratory: no respiratory distress, no accessory muscle use Gastrointestinal: non tender, soft Hips: bilateral hip non-tender, bilateral hip normal inspection, bilateral hip normal range of motion Legs: bilateral leg non-tender, bilateral leg normal inspection, bilateral leg normal range of motion, bilateral leg other (chronic swelling bilateral lower extremities. No wounds.) Knees: bilateral knee non-tender, bilateral knee normal inspection, bilateral knee normal range of motion Ankles: bilateral ankle non-tender, bilateral ankle normal inspection, bilateral ankle normal range of motion Neurologic/Psychiatric: alert, normal mood/affect, oriented x 3 Skin: normal color, warm/dry Progress/Results/Core Measures Results/Orders My Orders Orders - ROLAND GONZALEZ APRN Cbc With Automated Diff (12/19/16 17:51) Basic Metabolic Panel (12/19/16 17:51) Us Venous Lower Ext Lt (12/19/16 17:51) Departure Impression Impression: Primary Impression: Venous stasis dermatitis of both lower extremities Disposition: 01 HOME, SELF-CARE Condition: Stable Departure-Patient Inst. Referrals: NO,LOCAL PHYSICIAN (PCP/Family) Primary Care Physician ROLAND GONZALEZ APRN Dec 19, 2016 17:55
[2016-12-19 17:56] LABS: BASOPHILS % (AUTO) 0 % (0-10); EOSINOPHILS # (AUTO) 0.3 10^3/uL (0.0-0.3); EOSINOPHILS % (AUTO) 3 % (0-10); LYMPHOCYTES # (AUTO) 3.6 X 10^3 (1.0-4.0); LYMPHOCYTES % (AUTO) 35 % (12-44); MEAN CORPUSCULAR HEMOGLOBIN 30 PG (25-34); MEAN CORPUSCULAR HGB CONC 34 G/DL (32-36); MEAN CORPUSCULAR VOLUME 89 FL (80-99); MEAN PLATELET VOLUME 10.7 FL (7.4-10.4); MONOCYTES # (AUTO) 0.8 X 10^3 (0.0-1.0); MONOCYTES % (AUTO) 8 % (0-12); NEUTROPHILS # (AUTO) 5.5 X 10^3 (1.8-7.8); NEUTROPHILS % (AUTO) 54 % (42-75); PLATELET COUNT 240 10^3/uL (130-400); RED BLOOD COUNT 4.49 10^6/uL (4.35-5.85); RED CELL DISTRIBUTION WIDTH 13.2 % (10.0-14.5); WHITE BLOOD COUNT 10.3 10^3/uL (4.3-11.0)
[2016-12-19 18:11] LABS: ANION GAP 8 MMOL/L (5-14); BLOOD UREA NITROGEN 10 MG/DL (7-18); BUN/CREATININE RATIO 14; CALCIUM 9.3 MG/DL (8.5-10.1); CARBON DIOXIDE 25 MMOL/L (21-32); CHLORIDE 106 MMOL/L (98-107); CREATININE SERUM 0.72 MG/DL (0.60-1.30); GFR ESTIMATED > 60; GLUCOSE 266 MG/DL (70-105); POTASSIUM 3.7 MMOL/L (3.6-5.0); SODIUM 139 MMOL/L (135-145)
--- NOTE | 2016-12-19 18:52 | Diagnostic Imaging Report ---
INDICATION: Left lower extremity pain. COMPARISON STUDY: Left lower extremity Doppler from 09/21/15. FINDINGS: Left lower extremity Doppler demonstrates no evidence of a DVT. Previous popliteal cyst is no longer identified. IMPRESSION: Negative left lower extremity venous Doppler. Dictated by: Dictated on workstation # [id number]
[2016-12-19 18:57] VITALS: BP 131/78
== END 2016-12-19 18:57 | disposition home or self-care (01) ==
LOC: EDUNIT# 17:37 → ER 17:38
DX: I87.8 Other specified disorders of veins (principal); E11.40 Type 2 diabetes mellitus with diabetic neuropathy, unspecified; F41.9 Anxiety disorder, unspecified; F31.9 Bipolar disorder, unspecified; K21.9 Gastro-esophageal reflux disease without esophagitis; I25.10 Atherosclerotic heart disease of native coronary artery without angina pectoris; J44.9 Chronic obstructive pulmonary disease, unspecified; Z87.442 Personal history of urinary calculi; Z90.710 Acquired absence of both cervix and uterus; Z91.5 Personal history of self-harm; Z86.718 Personal history of other venous thrombosis and embolism; Z98.51 Tubal ligation status; Z79.84 Long term (current) use of oral hypoglycemic drugs
CPT/HCPCS: 36415; 80048; 85025; 99283

== ENCOUNTER 2017-01-08 07:53 | Emergency (ER) | payer MEDICARE, MEDICAID ==
[~2017-01-08] VITALS: Ht 157.5 cm; Wt 81.6 kg
--- NOTE | 2017-01-08 08:48 | ED General ---
General Chief Complaint: General Problems/Pain Stated Complaint: LEGS SWELLING Nursing Triage Note: Pt claims she has been homeless for quite some time and been off her medications. Reports a recent psychitric admit in [place]. 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 Nursing Sepsis Screen: No Definite Risk Source of Information: Patient Exam Limitations: No Limitations History of Present Illness Time Seen by Provider: 08:06 Initial Comments This 51-year-old woman well known to the emergency room presents with complaints that she is homeless and has been off of her medications for up to 2 weeks. She reports that she had a psychiatric hospitalization in [place] about 2 weeks ago I did not get her medications filled after that. She is seeking assistance with these problems. She states that she has an appointment to discuss housing later today. She also has been assigned a payee recently to help her make arrangements. She complains of some minor neck pain and also complains of leg swelling which is known to this provider to be a chronic problem. She does not seem to have any emergent medical issues but needs assistance with arranging her primary care. Allergies and Home Medications Allergies Coded Allergies: levofloxacin (Verified Allergy, Unknown, 06/21/14) sulfamethoxazole (Unverified Allergy, Unknown, 06/21/14) trimethoprim (Unverified Allergy, Unknown, 06/21/14) Home Medications Atorvastatin 20 Mg Tablet, 20 MG PO DAILY, (Reported) Brexpiprazole 2 Mg Tablet, #30 (Reported) Glipizide 10 Mg Tab.sr.24h, 10 MG PO DAILY, (Reported) Glipizide 10 Mg Tab.er.24, 10 MG PO DAILY, #10 Prescribed by: ROLAND GONZALEZ on 11/11/16 1631 Haloperidol 5 Mg Tablet, #30 (Reported) Metformin HCl 500 Mg Tablet, 1,000 MG PO BID, #14 Prescribed by: ROLAND GONZALEZ on 11/11/16 1553 Metformin Hcl 1,000 Mg Tablet, 1,000 MG PO BID, (Reported) Tramadol HCl 50 Mg Tablet, 50 MG PO Q6H PRN for PAIN, #10 Prescribed by: ROYCE ARGUELLO on 06/21/16 0202 Venlafaxine HCl 75 Mg Cap.er.24h, 75 MG PO DAILY, #30 (Reported) Venlafaxine HCl 150 Mg Cap.er.24h, 150 MG PO DAILY, #14 Prescribed by: ROLAND GONZALEZ on 11/11/16 1553 Constitutional: no symptoms reported EENTM: no symptoms reported Respiratory: no symptoms reported Cardiovascular: no symptoms reported Gastrointestinal: no symptoms reported Genitourinary: no symptoms reported Musculoskeletal: see HPI Skin: no symptoms reported Psychiatric/Neurological: See HPI Hematologic/Lymphatic: No Symptoms Reported Immunological/Allergic: no symptoms reported Past Isnvigd-Indloz-Mwusvy Hx Patient Social History Alcohol Use: Occasionally Uses Number of Drinks Today: AA Alcohol Beverage of Choice: Beer Recreational Drug Use: No Smoking Status: Current Everyday Smoker Type Used: Cigarettes 2nd Hand Smoke Exposure: No Recent Foreign Travel: No Contact w/Someone Who Travel: No Recent Infectious Disease Expo: No Recent Hopitalizations: No Immunizations Up To Date Tetanus Booster (TDap): Unknown Date of Pneumonia Vaccine: Jun 26, 2007 Date of Influenza Vaccine: Dec 09, 2013 Seasonal Allergies Seasonal Allergies: No Surgeries History of Surgeries: Yes (STENT IN R URETER, BACK SURGERY, SUSANA FILTER) Surgeries: Gallbladder, Hysterectomy, Orthopedic, Renal, Tubal Ligation Respiratory History of Respiratory Disorde: Yes (NO CPAP) Respiratory Disorders: Asthma, Sleep Apnea, COPD Currently Using CPAP: No Currently Using BIPAP: No Cardiovascular History of Cardiac Disorders: Yes (DVT LEFT LEG; CHRONIC VENOUS INSUFFICIENCY) Cardiac Disorders: Chronic Edema/Swelling, Coronary Artery Disease, Deep Vein Thrombosis Neurological History of Neurological Disord: Yes Neurological Disorders: Neuropathy 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 System Hx 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 Disorders: No Sexually Transmitted Disease: No 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 Genitourinary History of Genitourinary Disor: Yes Genitourinary Disorders: Kidney Stones Gastrointestinal History of Gastrointestinal Di: Yes Gastrointestinal Disorders: Gastroesophageal Reflux Musculoskeletal History of Musculoskeletal Dis: Yes (CHRONIC LEG PAIN--L>R) Musculoskeletal Disorders: Arthritis, Chronic Back Pain Endocrine History of Endocrine Disorders: Yes Endocrine Disorders: Diabetes, Non-Insulin dep HEENT History of HEENT Disorders: No Loss of Vision: Denies Hearing Impairment: Denies Cancer History of Cancer: No Psychosocial History of Psychiatric Problem: Yes Behavioral Health Disorders: Anxiety, Suicide Attempts, Bipolar, Depression Integumentary History of Skin or Integumenta: Yes (VENOUS STASIS CHANGES TO LEGS-LEFT > RIGHT ) Blood Transfusions History of Blood Disorders: Yes (HX OF BLOOD CLOTS) Adverse Reaction to a Blood Tr: No Family Medical History Family Medial History: Diabetes mellitus 19 FATHER EMPHYSEMA 19 FATHER EPIEPSY G8 SISTER Hypertension 19 MOTHER STROKE 19 MOTHER No Family History of: Asthma Physical Exam Vital Signs Vital Sign - Last 12Hours 01/08/17 08:20 Temp 97.2 Resp 18 B/P (MAP) 112/68 Pulse Ox 98 O2 Delivery Room Air Capillary Refill : Less Than 3 Seconds General Appearance: No Apparent Distress, WD/WN HEENT: PERRL/EOMI, Normal ENT Inspection Neck: Normal Inspection Respiratory: Lungs Clear, Normal Breath Sounds, No Accessory Muscle Use, No Respiratory Distress Cardiovascular: Regular Rate, Rhythm, No Edema, No Murmur Extremity: Swelling (chronic and stable) Neurologic/Psychiatric: Alert, Oriented x3, No Motor/Sensory Deficits, 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 Intermittently agitated) Skin: Normal Color, Warm/Dry Progress/Results/Core Measures Results/Orders Vital Signs/I&O Vital Sign - Last 12Hours 01/08/17 08:20 Temp 97.2 Resp 18 B/P (MAP) 112/68 Pulse Ox 98 O2 Delivery Room Air Blood Pressure Mean: 83 Progress Note : Progress Note Patient did not have any significant physical complaints that needed addressed. She describes some minor neck pain and persistent chronic lower extremity edema. I made multiple phone calls in attempt to help her get back on her prescribed medication regimen. I contacted her case planner, Sofia Meehan at [facility], who was already aware of her circumstances. She did confirm patient has an appointment with the [facility] this afternoon to work on housing. She confirmed the patient had seen [facility] and Dr. Pino in the past, and review of patient's medication filling record seemed to confirm this. I contacted [facility] and confirmed that she had an establish care appointment with Dr. Cabezas in January. They stated she could be seen sooner to work on her medications if she was willing to see Dr. Mckeon. I also contacted Dr. Pino's office who offered to see her this morning to help her with medications. I discussed the options with the patient, but none of these options were satisfactory to her. She became belligerent at discharge and refused to sign her discharge papers. I also offered to check her blood sugar since she had been off her medications. Patient declined. Departure Impression Impression: Primary Impression: Noncompliance with medication regimen Additional Impressions: Homeless Neck pain Chronic edema Disposition: 01 HOME, SELF-CARE Condition: Stable Departure-Patient Inst. Decision time for Depature: 08:16 Referrals: NO,LOCAL PHYSICIAN (PCP/Family) Primary Care Physician Patient Instructions: NO INSTRUCTIONS GIVEN Add. Discharge Instructions: Follow-up with a primary care provider either at the [facility] or with Dr. Pino as soon as possible. Dr. Pino can see this morning if needed. You have an appointment with Dr. Cabezas in January to establish care. You may possibly be able to see Dr. Mckeon sooner if you desire. Keep your appointment with the [facility] to discuss housing this afternoon at 1:00 p.m. You may contact Sofia Meehan if you need assistance with further arrangements at [phone]. You may take ibuprofen up to 600 mg every 6 hours as needed for neck pain and/or Tylenol (acetaminophen) up to 1000 mg every 6 hours as needed. Elevate your legs when at rest to help with swelling. Return to the ER if you have worsening health issues. All discharge instructions reviewed with patient and/or family. Voiced understanding. Copy Copies To 1: MAXI PINO DO Copies To 2: SUNI CABEZAS MD, JOSHUA T MD Jan 08, 2017 08:48
[2017-01-08 08:50] VITALS: BP 112/68
== END 2017-01-08 08:50 | disposition home or self-care (01) ==
LOC: EDUNIT# 07:53 → ER 07:56
DX: M54.2 Cervicalgia (principal); R60.0 Localized edema; F41.9 Anxiety disorder, unspecified; F31.9 Bipolar disorder, unspecified; E11.40 Type 2 diabetes mellitus with diabetic neuropathy, unspecified; J44.9 Chronic obstructive pulmonary disease, unspecified; G47.30 Sleep apnea, unspecified; K21.9 Gastro-esophageal reflux disease without esophagitis; F17.210 Nicotine dependence, cigarettes, uncomplicated; Z87.442 Personal history of urinary calculi; Z91.14 Patient's other noncompliance with medication regimen; Z59.0 Homelessness; Z91.5 Personal history of self-harm; Z98.51 Tubal ligation status; Z90.710 Acquired absence of both cervix and uterus; Z79.84 Long term (current) use of oral hypoglycemic drugs
CPT/HCPCS: 99281

== ENCOUNTER 2017-12-16 12:04 | Emergency (ER) | payer MEDICARE, MEDICAID ==
[~2017-12-16] VITALS: Ht 170.2 cm; Wt 86.2 kg
[~2017-12-16 12:04] MED LIST changes: +ACHD5005; +ACHD5005 PO; -HYDR-3812; -HYDR-3812 PO; +METF-397 PO; +METF-399 PO; -METF1000 PO; -METF500T4 PO
[2017-12-16] MEDS ORDERED: NS IV 1000 ML 1,000 ML IV SCH (12:13)
--- NOTE | 2017-12-16 12:21 | ED Syncope ---
General Chief Complaint: General Problems/Pain Stated Complaint: WEAK/CONFUSED/SWEATY Source of Information: Patient, EMS Exam Limitations: Other (patient does not like to answer a lot of questions at baseline secondary to personality) History of Present Illness Date Seen by Provider: Dec 16, 2017 Time Seen by Provider: 12:09 Initial Comments The patient reports the ER by EMS that she was found wandering around behind [place] acting oddly by a passerby so they called EMS. EMS states that her initial blood sugar was 240. She complained of feeling very dizzy like she was given a pass out so she sat down. She's been walking around all morning and has an appointment with a doctor somewhere but she does not do or where it is or what it is for. She's not having a cough, wheezing, shortness of breath, however she does have some painful urination and pain that is new this morning and pointing to her suprapubic region. She denies any nausea vomiting diarrhea. She says she's had some chills yesterday but no documented fever. She denies any trauma. The patient emphatically states she has been taking her medications when asked. Allergies and Home Medications Allergies Coded Allergies: levofloxacin (Verified Allergy, Unknown, 06/21/14) sulfamethoxazole (Unverified Allergy, Unknown, 06/21/14) trimethoprim (Unverified Allergy, Unknown, 06/21/14) Home Medications Atorvastatin 20 Mg Tablet, 20 MG PO DAILY, (Reported) Glipizide 10 Mg Tab.sr.24h, 10 MG PO DAILY, (Reported) Glipizide 10 Mg Tab.er.24, 10 MG PO DAILY Prescribed by: ROLAND GONZALEZ on 11/11/16 1631 Metformin HCl 500 Mg Tablet, 1,000 MG PO BID Prescribed by: ROLAND GONZALEZ on 11/11/16 155 Metformin Hcl 1,000 Mg Tablet, 1,000 MG PO BID, (Reported) Tramadol HCl 50 Mg Tablet, 50 MG PO Q6H PRN for PAIN Prescribed by: ROYCE ARGUELLO on 06/21/16 0202 Venlafaxine HCl 75 Mg Cap.er.24h, 75 MG PO DAILY, (Reported) Venlafaxine HCl 150 Mg Cap.er.24h, 150 MG PO DAILY Prescribed by: ROLAND GONZALEZ on 11/11/16 155 Patient Home Medication List Home Medication List Reviewed: Yes Review of Systems Constitutional: chills; No diaphoresis; dizziness (Near Syncope); No fever; malaise EENTM: No ear discharge, No hearing loss, No ear pain Respiratory: No cough, No short of breath Cardiovascular: No chest pain, No edema Gastrointestinal: abdominal pain (suprapubic); No constipation, No diarrhea, No nausea, No vomiting Genitourinary: No discharge; dysuria Musculoskeletal: No back pain, No joint pain Skin: No pruritus, No rash Past Kzcqevf-Gxuioq-Ndyivr Hx Patient Social History Alcohol Use: Occasionally Uses Alcohol Beverage of Choice: Beer Recreational Drug Use: No Smoking Status: Current Everyday Smoker Type Used: Cigarettes 2nd Hand Smoke Exposure: No Recent Hopitalizations: No Immunizations Up To Date Tetanus Booster (TDap): Unknown Date of Pneumonia Vaccine: Jun 26, 2007 Date of Influenza Vaccine: Dec 09, 2013 Seasonal Allergies Seasonal Allergies: No Past Medical History Surgeries: Yes (STENT IN R URETER, BACK SURGERY, SUSANA FILTER) Gallbladder, Hysterectomy, Orthopedic, Renal, Tubal Ligation Respiratory: Yes (NO CPAP) Asthma, Sleep Apnea, COPD Currently Using CPAP: No Currently Using BIPAP: No Cardiac: Yes (DVT LEFT LEG; CHRONIC VENOUS INSUFFICIENCY) Chronic Edema/Swelling, Coronary Artery Disease, Deep Vein Thrombosis Neurological: Yes Neuropathy 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 Sexually Transmitted Disease: No HIV/AIDS: No Genitourinary: Yes Kidney Stones Gastrointestinal: Yes Gastroesophageal Reflux Musculoskeletal: Yes (CHRONIC LEG PAIN--L>R) Arthritis, Chronic Back Pain Endocrine: Yes Diabetes, Non-Insulin dep HEENT: No Loss of Vision: Denies Hearing Impairment: Denies Cancer: No Psychosocial: Yes Anxiety, Suicide Attempts, Bipolar, Depression Integumentary: Yes (VENOUS STASIS CHANGES TO LEGS-LEFT > RIGHT) Blood Disorders: Yes (HX OF BLOOD CLOTS) Adverse Reaction/Blood Tranf: No Family Medical History Diabetes mellitus 19 FATHER EMPHYSEMA 19 FATHER EPIEPSY G8 SISTER Hypertension 19 MOTHER STROKE 19 MOTHER No Family History of: Asthma Physical Exam Vital Signs Vital Signs - First Documented 12/16/17 12:05 Temp 98.1 Pulse 67 Resp 20 B/P (MAP) 116/87 (97) Pulse Ox 95 O2 Delivery Room Air Capillary Refill : Height, Weight, BMI Height: 5'2.00" Weight: 180lbs. 3.2oz. 81.483017fu; 33.1 BMI Method:Estimated General Appearance: No Apparent Distress, WD/WN HEENT: PERRL/EOMI, TMs Normal, Pharynx Normal; No Moist Mucous Membranes ( appears dry) Neck: Full Range of Motion, Normal Inspection, Non Tender, Supple Cardiovascular: Regular Rate, Rhythm, No Edema, Normal Peripheral Pulses Respiratory: Chest Non Tender, Lungs Clear, Normal Breath Sounds, No Accessory Muscle Use, No Respiratory Distress Gastrointestinal: Normal Bowel Sounds, No Organomegaly, No Pulsatile Mass, Non Tender, Soft Extremities: Normal Capillary Refill, Non Tender, No Calf Tenderness, Pedal Edema (chronic bilateral mild) Neurologic/Psychiatric: Alert, Oriented x3, Depressed Affect, Other (refuses to make eye contact. Answers with sparing answers only which is baseline for her.) Cranial Nerves: Normal Hearing, Normal Speech, PERRL Motor/Sensory: No Motor Deficit, No Sensory Deficit Skin: Normal Color, Warm/Dry Progress/Results/Core Measures Results/Orders Lab Results Laboratory Tests Test 12/16/17 12:13 Range/Units White Blood Count 8.5 4.3-11.0 10^3/uL Red Blood Count 4.80 4.35-5.85 10^6/uL Hemoglobin 14.7 11.5-16.0 G/DL Hematocrit 41 35-52 % Mean Corpuscular Volume 85 80-99 FL Mean Corpuscular Hemoglobin 31 25-34 PG Mean Corpuscular Hemoglobin Concent 36 32-36 G/DL Red Cell Distribution Width 12.7 10.0-14.5 % Platelet Count 237 130-400 10^3/uL Mean Platelet Volume 10.7 H 7.4-10.4 FL Neutrophils (%) (Auto) 54 42-75 % Lymphocytes (%) (Auto) 37 12-44 % Monocytes (%) (Auto) 8 0-12 % Eosinophils (%) (Auto) 2 0-10 % Basophils (%) (Auto) 0 0-10 % Neutrophils # (Auto) 4.6 1.8-7.8 X 10^3 Lymphocytes # (Auto) 3.1 1.0-4.0 X 10^3 Monocytes # (Auto) 0.6 0.0-1.0 X 10^3 Eosinophils # (Auto) 0.2 0.0-0.3 10^3/uL Basophils # (Auto) 0.0 0.0-0.1 10^3/uL Sodium Level 139 135-145 MMOL/L Potassium Level 3.7 3.6-5.0 MMOL/L Chloride Level 106 98-107 MMOL/L Carbon Dioxide Level 21 21-32 MMOL/L Anion Gap 12 5-14 MMOL/L Blood Urea Nitrogen 11 7-18 MG/DL Creatinine 0.72 0.60-1.30 MG/DL Estimat Glomerular Filtration Rate > 60 BUN/Creatinine Ratio 15 Glucose Level 219 H 70-105 MG/DL Calcium Level 9.3 8.5-10.1 MG/DL Corrected Calcium 9.2 8.5-10.1 MG/DL Total Bilirubin 0.5 0.1-1.0 MG/DL Aspartate Amino Transf (AST/SGOT) 19 5-34 U/L Alanine Aminotransferase (ALT/SGPT) 24 0-55 U/L Alkaline Phosphatase 71 40-136 U/L Total Protein 7.3 6.4-8.2 GM/DL Albumin 4.1 3.2-4.5 GM/DL Serum Alcohol < 10 <10 MG/DL My Orders Orders - JUAN RAMON DOLAN Alcohol (12/16/17 12:13) Cbc With Automated Diff (12/16/17 12:13) Comprehensive Metabolic Panel (12/16/17 12:13) Drug Screen Stat (Urine) (12/16/17 12:13) Ua Culture If Indicated (12/16/17 12:13) Saline Lock/Iv-Start (12/16/17 12:13) Ns Iv 1000 Ml (Sodium Chloride 0.9%) (12/16/17 12:13) Orthostatic Vital Signs (Adult (12/16/17 12:13) Ekg Tracing (12/16/17 12:21) Continuous Ekg Monitoring (12/16/17 12:21) Vital Signs/I&O 12/16/17 12:05 Temp 98.1 Pulse 67 Resp 20 B/P (MAP) 116/87 (97) Pulse Ox 95 O2 Delivery Room Air Progress Progress Note #1: Time: 12:20 Progress Note We'll do a syncopal workup including EKG, orthostatics, labs and chest x-ray. We 'll also give her a liter fluids and encourage her to drink so we'll get a urine specimen since she's having suprapubic abdominal pain. No diarrhea to suggest colitis. UTIs high on the list of likelihood. The patient has refused her chest x-ray. Progress Note #2: Time: 13:11 Progress Note The patient received her IV fluids decided she felt better and wanted to go AMA. She has been explained that we did not find anything significant and the blood work so far and she has not produced a urine sample. Nor has she consented to do a chest x-ray or orthostatic vital signs. We have encouraged her to follow up with primary care. She walked out under her own willpower with no staggering or confusion documented. Initial ECG Impression Date: Dec 16, 2017 Initial ECG Impression Time: 12:33 Initial ECG Rate: 63 Initial ECG Rhythm: Normal Sinus Initial ECG Intervals: Normal Initial ECG Impression: Normal Initial ECG Comparisson: Unchanged Comment No ST elevation or depression. Departure Impression Primary Impression: Dehydration Additional Impression: Dizziness Disposition: 07 AGAINST MEDICAL ADVICE Condition: Against Medical Advice Departure-Patient Inst. Decision time for Depature: 13:12 Referrals: [facility] ([place]P/Family) Primary Care Physician Patient Instructions: Dizziness, Nonvertigo, (DC) Add. Discharge Instructions: Please follow-up with your primary care doctor. Drink lots of fluids. All discharge instructions reviewed with patient and/or family. Voiced understanding. JUAN RAMON DOLAN Dec 16, 2017 12:21
[2017-12-16 12:22] LABS: BASOPHILS % (AUTO) 0 % (0-10); EOSINOPHILS # (AUTO) 0.2 10^3/uL (0.0-0.3); EOSINOPHILS % (AUTO) 2 % (0-10); HEMATOCRIT 41 % (35-52); HEMOGLOBIN 14.7 G/DL (11.5-16.0); LYMPHOCYTES # (AUTO) 3.1 X 10^3 (1.0-4.0); LYMPHOCYTES % (AUTO) 37 % (12-44); MEAN CORPUSCULAR HEMOGLOBIN 31 PG (25-34); MEAN CORPUSCULAR HGB CONC 36 G/DL (32-36); MEAN CORPUSCULAR VOLUME 85 FL (80-99); MEAN PLATELET VOLUME 10.7 FL (7.4-10.4); MONOCYTES # (AUTO) 0.6 X 10^3 (0.0-1.0); MONOCYTES % (AUTO) 8 % (0-12); NEUTROPHILS # (AUTO) 4.6 X 10^3 (1.8-7.8); NEUTROPHILS % (AUTO) 54 % (42-75); PLATELET COUNT 237 10^3/uL (130-400); RED CELL DISTRIBUTION WIDTH 12.7 % (10.0-14.5); WHITE BLOOD COUNT 8.5 10^3/uL (4.3-11.0)
[2017-12-16 12:46] LABS: ALANINE AMINOTRANSFERASE 24 U/L (0-55); ALBUMIN 4.1 GM/DL (3.2-4.5); ALKALINE PHOSPHATASE 71 U/L (40-136); BILIRUBIN,TOTAL 0.5 MG/DL (0.1-1.0); BUN/CREATININE RATIO 15; CALCIUM 9.3 MG/DL (8.5-10.1); CARBON DIOXIDE 21 MMOL/L (21-32); CHLORIDE 106 MMOL/L (98-107); CREATININE SERUM 0.72 MG/DL (0.60-1.30); GFR ESTIMATED > 60; GLUCOSE 219 MG/DL (70-105); POTASSIUM 3.7 MMOL/L (3.6-5.0); SODIUM 139 MMOL/L (135-145); TOTAL PROTEIN 7.3 GM/DL (6.4-8.2)
[2017-12-16 13:12] VITALS: BP 116/87
== END 2017-12-16 13:12 | disposition left against medical advice (07) ==
LOC: EDUNIT# 12:04 → ER 12:05
DX: E86.0 Dehydration (principal); R42 Dizziness and giddiness; J44.9 Chronic obstructive pulmonary disease, unspecified; I25.10 Atherosclerotic heart disease of native coronary artery without angina pectoris; G47.30 Sleep apnea, unspecified; K21.9 Gastro-esophageal reflux disease without esophagitis; E11.42 Type 2 diabetes mellitus with diabetic polyneuropathy; F41.9 Anxiety disorder, unspecified; F31.9 Bipolar disorder, unspecified; F17.210 Nicotine dependence, cigarettes, uncomplicated; Z88.2 Allergy status to sulfonamides; Z91.5 Personal history of self-harm; Z86.718 Personal history of other venous thrombosis and embolism; Z87.442 Personal history of urinary calculi; Z90.710 Acquired absence of both cervix and uterus; Z98.51 Tubal ligation status; Z96.0 Presence of urogenital implants; Z88.8 Allergy status to other drugs, medicaments and biological substances; Z79.84 Long term (current) use of oral hypoglycemic drugs
CPT/HCPCS: 36415; 80053; 80320; 85025; 93005

== ENCOUNTER 2018-08-03 10:28 | Emergency (ER) | payer MEDICARE, MEDICAID ==
[~2018-08-03] VITALS: Ht 170.2 cm; Wt 86.2 kg
[~2018-08-03 10:28] MED LIST changes: -GLIP-197; -GLIP-197 PO; +GLIP10TA24; +GLIP10TA24 PO; +METR-145 PO; -METR500T21 PO
[2018-08-03] MEDS ORDERED: NS IV 1000 ML 1,000 ML IV ONE (10:31)
[2018-08-03 11:01] LABS: BILIRUBIN,URINE NEGATIVE (NEGATIVE); CLARITY,URINE CLEAR; COLOR,URINE YELLOW; GLUCOSE, URINE (UA) 4+ (NEGATIVE); KETONES,URINE NEGATIVE (NEGATIVE); LEUKOCYTE ESTERASE ,URINE NEGATIVE (NEGATIVE); NITRITE,URINE NEGATIVE (NEGATIVE); PH,URINE 6.5 (5-9); PROTEIN,URINE 1+ (NEGATIVE); UROBILINOGEN,URINE NORMAL (NORMAL)
[2018-08-03 11:02] LABS: BASOPHILS % (AUTO) 0 % (0-10); EOSINOPHILS # (AUTO) 0.2 10^3/uL (0.0-0.3); EOSINOPHILS % (AUTO) 2 % (0-10); HEMATOCRIT 43 % (35-52); HEMOGLOBIN 15.1 G/DL (11.5-16.0); LYMPHOCYTES # (AUTO) 2.7 X 10^3 (1.0-4.0); LYMPHOCYTES % (AUTO) 32 % (12-44); MEAN CORPUSCULAR HEMOGLOBIN 30 PG (25-34); MEAN CORPUSCULAR HGB CONC 35 G/DL (32-36); MEAN CORPUSCULAR VOLUME 84 FL (80-99); MEAN PLATELET VOLUME 10.2 FL (7.4-10.4); MONOCYTES # (AUTO) 0.6 X 10^3 (0.0-1.0); MONOCYTES % (AUTO) 7 % (0-12); NEUTROPHILS % (AUTO) 59 % (42-75); PLATELET COUNT 274 10^3/uL (130-400); RED CELL DISTRIBUTION WIDTH 13.1 % (10.0-14.5); WHITE BLOOD COUNT 8.4 10^3/uL (4.3-11.0)
[2018-08-03 11:10] LABS: RBC,URINE 50-100 /HPF
[2018-08-03 11:11] LABS: BACTERIA,URINE TRACE /HPF
[2018-08-03 11:17] LABS: AMPHETAMINE SCREEN, URINE POSITIVE (NEGATIVE); BARBITURATE SCREEN URINE NEGATIVE (NEGATIVE); BENZODIAZEPINES SCREEN URINE NEGATIVE (NEGATIVE); CANNABINOID SCREEN, URINE NEGATIVE (NEGATIVE); COCAINE SCREEN URINE NEGATIVE (NEGATIVE); METHADONE STAT NEGATIVE (NEGATIVE); METHAMPHETAMINE SCREEN URINE S POSITIVE (NEGATIVE); OPIATE SCREEN URINE NEGATIVE (NEGATIVE); OXYCODONE STAT NEGATIVE (NEGATIVE); PROPOXYPHENE STAT NEGATIVE (NEGATIVE); TRICYCLIC ANTIDEPRESSANTS SCRE NEGATIVE (NEGATIVE)
[2018-08-03 11:23] LABS: ALANINE AMINOTRANSFERASE 19 U/L (0-55); ALKALINE PHOSPHATASE 90 U/L (40-136); BILIRUBIN,TOTAL 0.3 MG/DL (0.1-1.0); BUN/CREATININE RATIO 22; CALCIUM 9.6 MG/DL (8.5-10.1); CARBON DIOXIDE 23 MMOL/L (21-32); CHLORIDE 102 MMOL/L (98-107); CREATININE SERUM 0.89 MG/DL (0.60-1.30); GFR ESTIMATED > 60; GLUCOSE 380 MG/DL (70-105); POTASSIUM 4.6 MMOL/L (3.6-5.0); SODIUM 135 MMOL/L (135-145); TOTAL PROTEIN 7.4 GM/DL (6.4-8.2)
--- NOTE | 2018-08-03 11:32 | ED GU-Female ---
General Chief Complaint: TRANSFERRER Stated Complaint: VAG BLEEDING Nursing Triage Note: Pt to ED with multiple complaints. Pt c/o abdominal cramping, vaginal bleeding, and painful urination. Pt "wants to be checked for tumor." Pt denies any new sexual partners or activity. Nursing Sepsis Screen: No Definite Risk Source: patient Exam Limitations: no limitations History of Present Illness Date Seen by Provider: August 03, 2018 Time Seen by Provider: 11:00 Initial Comments 52-year-old female who presents to the emergency room with complaints of left upper and lower quadrant abdominal pain and cramping, painful urination, and a small amount of blood on the toilet paper after urinating this morning. She is concerned she has an abdominal tumor. She denies any recent sexual activity or partners. Denies any vaginal discharge. Timing/Duration: this morning Severity/Quality: aching, cramping Location: LLQ Radiation: left flank Sexual Christiana History: not active, greater than 2 months ago Associated Symptoms: abdominal pain, dysuria, nausea/vomiting Allergies and Home Medications Allergies Coded Allergies: levofloxacin (Verified Allergy, Unknown, 06/21/14) sulfamethoxazole (Unverified Allergy, Unknown, 06/21/14) trimethoprim (Unverified Allergy, Unknown, 06/21/14) Home Medications Atorvastatin 20 Mg Tablet, 20 MG PO DAILY, (Reported) Glipizide 10 Mg Tab.sr.24h, 10 MG PO DAILY, (Reported) Glipizide 10 Mg Tab.er.24, 10 MG PO DAILY Prescribed by: ROLAND GONZALEZ on 11/11/16 1631 Metformin HCl 500 Mg Tablet, 1,000 MG PO BID Prescribed by: ROLAND GONZALEZ on 11/11/16 1553 Metformin Hcl 1,000 Mg Tablet, 1,000 MG PO BID, (Reported) Tramadol HCl 50 Mg Tablet, 50 MG PO Q6H PRN for PAIN Prescribed by: ROYCE ARGUELLO on 06/21/16 0202 Venlafaxine HCl 75 Mg Cap.er.24h, 75 MG PO DAILY, (Reported) Venlafaxine HCl 150 Mg Cap.er.24h, 150 MG PO DAILY Prescribed by: ROLAND GONZALEZ on 11/11/16 1553 Patient Home Medication List Home Medication List Reviewed: Yes Review of Systems Review of Systems Constitutional: see HPI; No chills, No fever Gastrointestinal: LUQ, LLQ, see HPI, abdominal pain Genitourinary: see HPI, burning All Other Systemes Reviewed Negative Unless Noted: Yes Past Btvcaka-Apeejw-Fnkokg Hx Past Med/Social Hx: Reviewed Nursing Past Med/Soc Hx Patient Social History Alcohol Use: Denies Use Number of Drinks Today: AA Alcohol Beverage of Choice: Beer Recreational Drug Use: Yes (meth) Smoking Status: Current Everyday Smoker Type Used: Cigarettes 2nd Hand Smoke Exposure: No Recent Foreign Travel: No Contact w/Someone Who Travel: No Recent Infectious Disease Expo: No Recent Hopitalizations: No Immunizations Up To Date Tetanus Booster (TDap): Unknown Date of Pneumonia Vaccine: Jun 26, 2007 Date of Influenza Vaccine: Dec 09, 2013 Seasonal Allergies Seasonal Allergies: No Past Medical History Surgeries: Yes (STENT IN R URETER, BACK SURGERY, SUSANA FILTER) Gallbladder, Hysterectomy, Orthopedic, Renal, Tubal Ligation Respiratory: Yes (NO CPAP) Asthma, Sleep Apnea, COPD Currently Using CPAP: No Currently Using BIPAP: No Cardiac: Yes (DVT LEFT LEG; CHRONIC VENOUS INSUFFICIENCY) Chronic Edema/Swelling, Coronary Artery Disease, Deep Vein Thrombosis Neurological: Yes Neuropathy 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 Disorders: No [employer] History: Hysterectomy Sexually Transmitted Disease: No HIV/AIDS: No Genitourinary: Yes Kidney Stones Gastrointestinal: Yes Gastroesophageal Reflux Musculoskeletal: Yes (CHRONIC LEG PAIN--L>R) Arthritis, Chronic Back Pain Endocrine: Yes Diabetes, Non-Insulin dep HEENT: No Loss of Vision: Denies Hearing Impairment: Denies Cancer: No Psychosocial: Yes Anxiety, Suicide Attempts, Bipolar, Depression Integumentary: Yes (VENOUS STASIS CHANGES TO LEGS-LEFT > RIGHT) Blood Disorders: Yes (HX OF BLOOD CLOTS) Adverse Reaction/Blood Tranf: No Family Medical History Reviewed Nursing Family Hx Diabetes mellitus 19 FATHER EMPHYSEMA 19 FATHER EPIEPSY G8 SISTER Hypertension 19 MOTHER STROKE 19 MOTHER No Family History of: Asthma Physical Exam Vital Signs Vital Signs - First Documented 08/03/18 11:05 Temp 96.9 Pulse 74 Resp 16 B/P (MAP) 129/84 (99) Pulse Ox 95 O2 Delivery Room Air Capillary Refill : Less Than 3 Seconds Height, Weight, BMI Height: 5'7.00" Weight: 190lbs. 3.2oz. [id number]; 33.1 BMI Method:Stated General Appearance: WD/WN, no apparent distress Cardiovascular: normal peripheral pulses, regular rate, rhythm, no edema, no gallop, no JVD, no murmur Respiratory: chest non-tender, lungs clear, normal breath sounds, no respiratory distress, no accessory muscle use, respiratory distress Gastrointestinal: normal bowel sounds, soft, no organomegaly, no pulsatile mass, tenderness (left lower quadrant tenderness) Extremities: normal range of motion, normal capillary refill Neurologic/Psychiatric: alert, normal mood/affect, oriented x 3 Skin: normal color, warm/dry Progress/Results/Core Measures Suspected Sepsis Recent Fever Within 48 Hours: No Infection Criteria Present: None New/Unexplained Altered Menta: No Sepsis Screen: No Definite Risk SIRS Temperature:96.9 Pulse: 74 Respiratory Rate: 16 Laboratory Tests 08/03/18 10:56: White Blood Count 8.4 Blood Pressure 129 /84 Mean: 99 Laboratory Tests 08/03/18 10:56: Creatinine 0.89, Platelet Count 274, Total Bilirubin 0.3 Results/Orders Lab Results Laboratory Tests Test 08/03/18 10:54 08/03/18 10:56 Range/Units Urine Color YELLOW Urine Clarity CLEAR Urine pH 6.5 5-9 Urine Specific [place] 1.015 L 1.016-1.022 Urine Protein 1+ H NEGATIVE Urine Glucose (UA) 4+ H NEGATIVE Urine Ketones NEGATIVE NEGATIVE Urine Nitrite NEGATIVE NEGATIVE Urine Bilirubin NEGATIVE NEGATIVE Urine Urobilinogen NORMAL NORMAL MG/DL Urine Leukocyte Esterase NEGATIVE NEGATIVE Urine RBC (Auto) 5+ H NEGATIVE Urine RBC 50-100 H /HPF Urine WBC NONE /HPF Urine Squamous Epithelial Cells 2-5 /HPF Urine Crystals NONE /LPF Urine Bacteria TRACE /HPF Urine Casts NONE /LPF Urine Mucus NEGATIVE /LPF Urine Culture Indicated NO Urine Opiates Screen NEGATIVE NEGATIVE Urine Oxycodone Screen NEGATIVE NEGATIVE Urine Methadone Screen NEGATIVE NEGATIVE Urine Propoxyphene Screen NEGATIVE NEGATIVE Urine Barbiturates Screen NEGATIVE NEGATIVE Ur Tricyclic Antidepressants Screen NEGATIVE NEGATIVE Urine Phencyclidine Screen NEGATIVE NEGATIVE Urine Amphetamines Screen POSITIVE H NEGATIVE Urine Methamphetamines Screen POSITIVE H NEGATIVE Urine Benzodiazepines Screen NEGATIVE NEGATIVE Urine Cocaine Screen NEGATIVE NEGATIVE Urine Cannabinoids Screen NEGATIVE NEGATIVE White Blood Count 8.4 4.3-11.0 10^3/uL Red Blood Count 5.08 4.35-5.85 10^6/uL Hemoglobin 15.1 11.5-16.0 G/DL Hematocrit 43 35-52 % Mean Corpuscular Volume 84 80-99 FL Mean Corpuscular Hemoglobin 30 25-34 PG Mean Corpuscular Hemoglobin Concent 35 32-36 G/DL Red Cell Distribution Width 13.1 10.0-14.5 % Platelet Count 274 130-400 10^3/uL Mean Platelet Volume 10.2 7.4-10.4 FL Neutrophils (%) (Auto) 59 42-75 % Lymphocytes (%) (Auto) 32 12-44 % Monocytes (%) (Auto) 7 0-12 % Eosinophils (%) (Auto) 2 0-10 % Basophils (%) (Auto) 0 0-10 % Neutrophils # (Auto) 5.0 1.8-7.8 X 10^3 Lymphocytes # (Auto) 2.7 1.0-4.0 X 10^3 Monocytes # (Auto) 0.6 0.0-1.0 X 10^3 Eosinophils # (Auto) 0.2 0.0-0.3 10^3/uL Basophils # (Auto) 0.0 0.0-0.1 10^3/uL Sodium Level 135 135-145 MMOL/L Potassium Level 4.6 3.6-5.0 MMOL/L Chloride Level 102 98-107 MMOL/L Carbon Dioxide Level 23 21-32 MMOL/L Anion Gap 10 5-14 MMOL/L Blood Urea Nitrogen 20 H 7-18 MG/DL Creatinine 0.89 0.60-1.30 MG/DL Estimat Glomerular Filtration Rate > 60 BUN/Creatinine Ratio 22 Glucose Level 380 H 70-105 MG/DL Calcium Level 9.6 8.5-10.1 MG/DL Corrected Calcium 9.6 8.5-10.1 MG/DL Total Bilirubin 0.3 0.1-1.0 MG/DL Aspartate Amino Transf (AST/SGOT) 16 5-34 U/L Alanine Aminotransferase (ALT/SGPT) 19 0-55 U/L Alkaline Phosphatase 90 40-136 U/L C-Reactive Protein High Sensitivity 0.68 H 0.00-0.50 MG/DL Total Protein 7.4 6.4-8.2 GM/DL Albumin 4.0 3.2-4.5 GM/DL My Orders Orders - RIDGE THORPE Ct Abdomen/Pelvis Wo (08/03/18 11:13) Medications Given in ED Current Medications Medications Dose Ordered Sig/Phuc Route Start Time Stop Time Status Last Admin Dose Admin Sodium Chloride 1,000 ml @ 0 mls/hr Q0M ONCE IV 08/03/18 10:31 08/03/18 10:32 DC 08/03/18 10:58 1,000 MLS/HR Vital Signs/I&O 08/03/18 11:05 Temp 96.9 Pulse 74 Resp 16 B/P (MAP) 129/84 (99) Pulse Ox 95 O2 Delivery Room Air Capillary Refill : Less Than 3 Seconds Blood Pressure Mean: 99 Progress Note : Time: 12:07 Progress Note I have seen and evaluated the patient. I've informed her of her laboratory studies and imaging findings. She has an appointment with Dr. Cabezas next week and she was instructed to keep this appointment for further follow-up and evaluation. She agrees with plan of care, plans for discharge, return precautions were given. Diagnostic Imaging Diagonstic Imaging: CT Plain Films/CT/US/NM/MRI: abdomen, pelvis Comments NAME: KATARZYNA WEAVER [facility] REC#: [id number] PT STATUS: REG ER : 1965 PHYSICIAN: RIDGE THORPE ADMIT DATE: 08/03/18/ER Signed Date of Exam: 08/03/18 CT ABDOMEN/PELVIS WO PROCEDURE: CT abdomen and pelvis without contrast. TECHNIQUE: Multiple contiguous axial images were obtained through the abdomen and pelvis without the use of intravenous contrast. Auto Exposure Controls were utilized during the CT exam to meet ALARA standards for radiation dose reduction. INDICATION: Vaginal bleeding COMPARISON: 07/27/2015 FINDINGS: The visualized lung bases are clear. Tiny hiatal hernia. Cholecystectomy. The unenhanced liver is unremarkable. The spleen is unremarkable. The adrenal glands are unremarkable. The pancreas is unremarkable. The kidneys and bilateral ureters are unremarkable. Inferior vena cava filter is present. Mild scattered vascular calcifications within the abdominal aorta and its branch vessels without aneurysmal dilatation of the abdominal aorta. The urinary bladder is unremarkable. The uterus is not visualized, likely surgically absent. No abnormal adnexal mass lesion. Minimal colonic diverticulosis without CT evidence of diverticulitis. The appendix is unremarkable. No significant adenopathy, free air, or free fluid within the abdomen or pelvis. Scattered osseous degenerative changes without acute osseous abnormality. Central canal and neuroforaminal stenosis is present, particularly at L3/L4 and L4/L5. Additional central canal stenosis at T8/T9 secondary to peripherally calcified disc bulge. IMPRESSION: Hysterectomy without abnormal mass lesion within the lower pelvis. Cholecystectomy. Scattered degenerative changes with multilevel central canal and neuroforaminal stenosis. Additional findings as described above. Dictated by: Dictated on workstation # [id number] Dict: 08/03/18 1142 Trans: 08/03/18 1155 Interpreted by: OLYA HERNÁNDEZ MD Electronically signed by: OLYA HERNÁNDEZ MD 08/03/18 1155 Reviewed: Reviewed by Me Departure Impression Primary Impression: Left sided abdominal pain Additional Impression: Hematuria Disposition: 01 HOME, SELF-CARE Condition: Stable/Unchanged Departure-Patient Inst. Decision time for Depature: 12:06 Referrals: [facility] [place] Primary Care Physician SUNI CABEZAS MD Patient Instructions: Acute Abdomen (Belly Pain) Add. Discharge Instructions: Keep your appointment as scheduled with Dr. Cabezas. Return back to the emergency room for worsening symptoms or concerns as needed. You may use ibuprofen and Tylenol as directed by the bottle for pain relief. All discharge instructions reviewed with patient and/or family. Voiced understanding. RIDGE THORPE August 03, 2018 11:32
--- NOTE | 2018-08-03 11:54 | Diagnostic Imaging Report ---
PROCEDURE: CT abdomen and pelvis without contrast. TECHNIQUE: Multiple contiguous axial images were obtained through the abdomen and pelvis without the use of intravenous contrast. Auto Exposure Controls were utilized during the CT exam to meet ALARA standards for radiation dose reduction. INDICATION: Vaginal bleeding COMPARISON: 07/27/2015 FINDINGS: The visualized lung bases are clear. Tiny hiatal hernia. Cholecystectomy. The unenhanced liver is unremarkable. The spleen is unremarkable. The adrenal glands are unremarkable. The pancreas is unremarkable. The kidneys and bilateral ureters are unremarkable. Inferior vena cava filter is present. Mild scattered vascular calcifications within the abdominal aorta and its branch vessels without aneurysmal dilatation of the abdominal aorta. The urinary bladder is unremarkable. The uterus is not visualized, likely surgically absent. No abnormal adnexal mass lesion. Minimal colonic diverticulosis without CT evidence of diverticulitis. The appendix is unremarkable. No significant adenopathy, free air, or free fluid within the abdomen or pelvis. Scattered osseous degenerative changes without acute osseous abnormality. Central canal and neuroforaminal stenosis is present, particularly at L3/L4 and L4/L5. Additional central canal stenosis at T8/T9 secondary to peripherally calcified disc bulge. IMPRESSION: Hysterectomy without abnormal mass lesion within the lower pelvis. Cholecystectomy. Scattered degenerative changes with multilevel central canal and neuroforaminal stenosis. Additional findings as described above. Dictated by: Dictated on workstation # [id number]
[2018-08-03 12:20] VITALS: BP 130/86
== END 2018-08-03 12:20 | disposition home or self-care (01) ==
LOC: EDUNIT# 10:28 → ER 10:30
DX: R10.32 Left lower quadrant pain (principal); R31.9 Hematuria, unspecified; J44.9 Chronic obstructive pulmonary disease, unspecified; G47.30 Sleep apnea, unspecified; F15.10 Other stimulant abuse, uncomplicated; K21.9 Gastro-esophageal reflux disease without esophagitis; F41.9 Anxiety disorder, unspecified; F31.9 Bipolar disorder, unspecified; I25.10 Atherosclerotic heart disease of native coronary artery without angina pectoris; E11.40 Type 2 diabetes mellitus with diabetic neuropathy, unspecified; F17.210 Nicotine dependence, cigarettes, uncomplicated; Z88.2 Allergy status to sulfonamides; Z91.5 Personal history of self-harm; Z82.49 Family history of ischemic heart disease and other diseases of the circulatory system; Z88.8 Allergy status to other drugs, medicaments and biological substances; Z87.442 Personal history of urinary calculi; Z86.718 Personal history of other venous thrombosis and embolism; Z79.4 Long term (current) use of insulin; Z96.0 Presence of urogenital implants; Z98.890 Other specified postprocedural states; Z90.710 Acquired absence of both cervix and uterus; Z98.51 Tubal ligation status
CPT/HCPCS: 36415; 74176; 80053; 80306; 81000; 85025; 86141; 96360

== ENCOUNTER 2021-11-01 18:49 | Observation (INO) | payer MEDICARE, MEDICAID ==
[~2021-11-01] VITALS: Ht 170 cm; Wt 65.4 kg
[~2021-11-01 18:49] MED LIST changes: +ARIP20TA20 PO; -ARIP20TA9 PO; -TRAM50TA2 PO; +TRM50T PO; -VENL150C PO; +VENL150C3 PO; -WARF10TA44 PO
--- NOTE | 2021-11-01 19:00 | ED Fall/Injury ---
General Stated Complaint: FALL,NECK HIP PAIN Source: patient, EMS (HOLLY MAE SENIOR CLINICAL RESEARCH SCIENTIST) History of Present Illness Date Seen by Provider: Nov 01, 2021 Time Seen by Provider: 18:56 Initial Comments This is a 56-year-old female who presented to the ER via [facility] after same level fall just prior to arrival. Patient states that she was walking around [facility] and tripped over her sandals and fell on concrete ground. She attempted to get up but was unable to bear any weight on her left lower extremity. She is complaining of pain in her left hip, head, and neck . She denies LOC. She is homeless, has history of diabetes, but denies any medical management. States she was previously treated by [facility] but has not seen primary care provider in over 4 years. Refuses to answer social questions about drug or alcohol abuse stating "its none of your business". (HOLLY MAE SENIOR CLINICAL RESEARCH SCIENTIST) Allergies and Home Medications Allergies Coded Allergies: levofloxacin (Verified Allergy, Unknown, 06/21/14) sulfamethoxazole (Unverified Allergy, Unknown, 06/21/14) trimethoprim (Unverified Allergy, Unknown, 06/21/14) Patient Home Medication List Home Medication List Reviewed: Yes (HOLLY MAE SENIOR CLINICAL RESEARCH SCIENTIST) Atorvastatin (Lipitor Tablet) 20 Mg Tablet, 20 MG PO DAILY, (Reported) Entered as Reported by: ANGEL SHERIDAN on 06/21/14 1246 Brexpiprazole (Rexulti) 2 Mg Tablet, (Reported) Entered as Reported by: KITTY VARMA on 01/25/16 1123 Glipizide (Glipizide Xl) 10 Mg Tab.sr.24h, 10 MG PO DAILY, (Reported) Entered as Reported by: RAJAN WRIGHT on 06/22/14 1049 Glipizide (Glipizide ER) 10 Mg Tab.er.24, 10 MG PO DAILY Prescribed by: ROLAND GONZALEZ on 11/11/16 1631 Haloperidol (Haloperidol) 5 Mg Tablet, (Reported) Entered as Reported by: ALEJO GLEASON on 10/07/16 2018 Metformin HCl (Metformin HCl) 500 Mg Tablet, 1,000 MG PO BID Prescribed by: ROLAND GONZALEZ on 11/11/16 1553 Metformin Hcl (Metformin 1000 Mg) 1,000 Mg Tablet, 1,000 MG PO BID, (Reported) Entered as Reported by: DORA KC on 05/19/11 1224 Tramadol HCl (Ultram) 50 Mg Tablet, 50 MG PO Q6H PRN for PAIN Prescribed by: ROYCE ARGUELLO on 06/21/16 0202 Venlafaxine HCl (Venlafaxine HCl ER) 75 Mg Cap.er.24h, 75 MG PO DAILY, (Reported) Entered as Reported by: MIKAYLA OCHOA on 06/04/15 1654 Venlafaxine HCl (Effexor Xr) 150 Mg Cap.er.24h, 150 MG PO DAILY Prescribed by: ROLAND GONZALEZ on 11/11/16 1553 Review of Systems Review of Systems Constitutional: no symptoms reported Eyes: No Symptoms Reported Ears, Nose, Mouth, Throat: no symptoms reported Respiratory: no symptoms reported Cardiovascular: no symptoms reported Gastrointestinal: no symptoms reported Genitourinary: no symptoms reported Musculoskeletal: neck pain, other Skin: no symptoms reported Psychiatric/Neurological: Anxiety (HOLLY MAE APRN) Past Pfqlazx-Rqaepm-Adjhzs Hx Immunizations Up To Date Tetanus Booster (TDap): Unknown (HOLLY MAE APRN) Seasonal Allergies Seasonal Allergies: No (HOLLY MAE APRN) Past Medical History Surgeries: Yes (STENT IN R URETER, BACK SURGERY, SUSANA FILTER) Gallbladder, Hysterectomy, Orthopedic, Renal, Tubal Ligation Respiratory: Yes (NO CPAP) Asthma, Sleep Apnea, COPD Currently Using CPAP: No Currently Using BIPAP: No Cardiac: Yes (DVT LEFT LEG; CHRONIC VENOUS INSUFFICIENCY) Chronic Edema/Swelling, Coronary Artery Disease, Deep Vein Thrombosis Neurological: Yes Neuropathy 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 Disorders: No 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 Sexually Transmitted Disease: No HIV/AIDS: No Genitourinary: Yes Kidney Stones Gastrointestinal: Yes Gastroesophageal Reflux Musculoskeletal: Yes (CHRONIC LEG PAIN--L>R) Arthritis, Chronic Back Pain Endocrine: Yes Diabetes, Non-Insulin dep HEENT: No Loss of Vision: Denies Hearing Impairment: Denies Cancer: No Psychosocial: Yes Anxiety, Suicide Attempts, Bipolar, Depression Integumentary: Yes (VENOUS STASIS CHANGES TO LEGS-LEFT > RIGHT) Blood Disorders: Yes (HX OF BLOOD CLOTS) Adverse Reaction/Blood Tranf: No (HOLLY MAE APRN) Family Medical History Diabetes mellitus 19 FATHER EMPHYSEMA 19 FATHER EPIEPSY G8 SISTER Hypertension 19 MOTHER STROKE 19 MOTHER No Family History of: Asthma Physical Exam Vital Signs Vital Signs - First Documented 11/01/21 18:55 Temp 36.5 Pulse 95 Resp 18 B/P (MAP) 107/89 (95) Pulse Ox 96 O2 Delivery Room Air (GIO ROTHMAN DO) Vital Signs Capillary Refill : (HOLLY MAE APRN) Height, Weight, BMI Height: 5'7.00" Weight: 190lbs. 3.2oz. 86.294639yh; 33.1 BMI Method:Stated General Appearance: WD/WN, no apparent distress, other HEENT: PERRL/EOMI, normal ENT inspection, TMs normal, pharynx normal Neck: supple, normal inspection, other Cardiovascular: normal peripheral pulses, regular rate, rhythm, no murmur Respiratory: lungs clear, normal breath sounds, no respiratory distress, no accessory muscle use Gastrointestinal: normal bowel sounds, non tender, soft Back: no vertebral tenderness Extremities: pelvis stable, calf tenderness, other Neurologic/Psychiatric: no motor/sensory deficits, alert, normal mood/affect, oriented x 3 Skin: normal color, warm/dry (HOLLY MAE APRN) Progress/Results/Core Measures Results/Orders Lab Results Laboratory Tests Test 11/01/21 19:35 11/01/21 21:01 Range/Units White Blood Count 8.5 4.3-11.0 10^3/uL Red Blood Count 5.02 3.80-5.11 10^6/uL Hemoglobin 14.3 11.5-16.0 g/dL Hematocrit 42 35-52 % Mean Corpuscular Volume 83 80-99 fL Mean Corpuscular Hemoglobin 29 25-34 pg Mean Corpuscular Hemoglobin Concent 34 32-36 g/dL Red Cell Distribution Width 12.6 10.0-14.5 % Platelet Count 240 130-400 10^3/uL Mean Platelet Volume 10.3 9.0-12.2 fL Immature Granulocyte % (Auto) 1 % Neutrophils (%) (Auto) 60 42-75 % Lymphocytes (%) (Auto) 29 12-44 % Monocytes (%) (Auto) 8 0-12 % Eosinophils (%) (Auto) 1 0-10 % Basophils (%) (Auto) 0 0-10 % Neutrophils # (Auto) 5.1 1.8-7.8 10^3/uL Lymphocytes # (Auto) 2.5 1.0-4.0 10^3/uL Monocytes # (Auto) 0.7 0.0-1.0 10^3/uL Eosinophils # (Auto) 0.1 0.0-0.3 10^3/uL Basophils # (Auto) 0.0 0.0-0.1 10^3/uL Immature Granulocyte # (Auto) 0.0 0.0-0.1 10^3/uL Urine Color YELLOW Urine Clarity CLEAR Urine pH 5.5 5-9 Urine Specific [place] 1.010 L 1.016-1.022 Urine Protein NEGATIVE NEGATIVE Urine Glucose (UA) 3+ H NEGATIVE Urine Ketones NEGATIVE NEGATIVE Urine Nitrite NEGATIVE NEGATIVE Urine Bilirubin NEGATIVE NEGATIVE Urine Urobilinogen 0.2 < = 1.0 MG/DL Urine Leukocyte Esterase NEGATIVE NEGATIVE Urine RBC (Auto) NEGATIVE NEGATIVE Urine RBC NONE /HPF Urine WBC RARE /HPF Urine Squamous Epithelial Cells 2-5 /HPF Urine Crystals NONE /LPF Urine Bacteria TRACE /HPF Urine Casts NONE /LPF Urine Mucus NEGATIVE /LPF Urine Culture Indicated NO Sodium Level 134 L 135-145 MMOL/L Potassium Level 4.3 3.6-5.0 MMOL/L Chloride Level 97 L 98-107 MMOL/L Carbon Dioxide Level 20 L 21-32 MMOL/L Anion Gap 17 H 5-14 MMOL/L Blood Urea Nitrogen 30 H 7-18 MG/DL Creatinine 1.51 H 0.60-1.30 MG/DL Estimat Glomerular Filtration Rate 40 BUN/Creatinine Ratio 20 Glucose Level 734 *H 70-105 MG/DL Calcium Level 9.9 8.5-10.1 MG/DL Corrected Calcium 10.1 8.5-10.1 MG/DL Total Bilirubin 0.5 0.1-1.0 MG/DL Aspartate Amino Transf (AST/SGOT) 12 5-34 U/L Alanine Aminotransferase (ALT/SGPT) 13 0-55 U/L Alkaline Phosphatase 103 40-136 U/L Total Protein 7.2 6.4-8.2 GM/DL Albumin 3.8 3.2-4.5 GM/DL Beta-Hydroxybutyrate (Chem panel) 0.10 0.00-0.27 MMOL/L Serum Alcohol < 10 <10 MG/DL Glucometer 540 *H 70-110 MG/DL (GIO ROTHMAN DO) Medications Given in ED Current Medications Medications Dose Ordered Sig/Phuc Route Start Time Stop Time Status Last Admin Dose Admin Fentanyl Citrate 50 mcg ONCE ONCE IVP 11/01/21 20:45 11/01/21 20:46 DC 11/01/21 20:50 50 MCG Insulin Human Regular 5 unit ONCE ONCE IV 11/01/21 20:30 11/01/21 21:32 DC 11/01/21 20:41 5 UNIT Sodium Chloride 1,000 ml @ 999 mls/hr Q1H ONCE IV 11/01/21 20:30 11/01/21 21:32 DC 11/01/21 20:41 999 MLS/HR (STEPHAN,GIO K DO) Vital Signs/I&O 11/01/21 11/01/21 11/01/21 11/01/21 18:55 19:30 20:00 20:30 Temp 36.5 Pulse 95 92 88 Resp 18 18 18 18 B/P (MAP) 107/89 (95) 141/74 131/77 135/88 Pulse Ox 96 98 99 99 O2 Delivery Room Air Room Air Room Air Room Air 11/01/21 21:00 Resp 18 B/P (MAP) 138/79 Pulse Ox 98 O2 Delivery Room Air (STEPHAN,GIO K DO) Progress Progress Note : Progress Note Upon arrival she is awake, alert. Arguing with staff over social history questions and IV placement. Finally consented to IV placement. Orders placed for basic labs, UA, images of left hip/pelvis, and CT head/cervical spine w/o. Labs reviewed, glucose >700, orders placed for NS 1 liter with Regular insulin 5 units, images of left hip show lightly comminuted, relatively nondisplaced fracture involving the greater trochanter proximal left femur. Images reviewed with orthopedic surgeon Dr. Molina, conservative management with WBAT with walker, follow up in 2-[address] head/c-spine negative for acute pathology. Discussed case with Dr. Power, will admit inpatient for hyperglycemia, dehydration, and fracture of left greater trochanter patient is currently h omeless, non complaint, with positive meth drug screen. Concerns for outpatient orthopedic management discussed. (HOLLY MAE APRN) Initial ECG Impression Date: Nov 01, 2021 Initial ECG Impression Time: 19:38 Initial ECG Rate: 88 Initial ECG Rhythm: Normal Sinus Initial ECG Intervals: Normal Initial ECG Impression: Normal (HOLLY MAE APRN) Diagnostic Imaging Diagonstic Imaging: Xray Comments [facility] [place] [place] NAME: KATARZYNA WEAVER [facility] REC#: [id number] PT STATUS: REG ER : 1965 PHYSICIAN: HOLLY MAE APRN ADMIT DATE: 11/01/21/ER Signed Date of Exam:11/01/21 PELVIS WITH LEFT HIP 2-3 VIEWS INDICATION: Hip pain post fall TECHNIQUE: AP pelvis along with 2 views left hip, 8:18 PM CORRELATION STUDY: None FINDINGS: Comminuted fracture at the superior aspect of the left greater trochanter. Definitive extension through the intertrochanteric aspect does not appear to be suggested. The femoral head acetabular relationship is maintained. The remainder of the pelvis as well as a right hip are maintained. SI joints and pubic sepsis are preserved. There is a transitional anatomy at the lumbosacral junction with partial lumbarization at S1. IMPRESSION: Slightly comminuted, relatively nondisplaced fracture involving the greater trochanter proximal left femur. . Dictated by: Dictated on workstation # [id number] Dict: 11/01/212021 Trans: 11/01/212129 [facility] [id number] Interpreted by: MONTRELL BHAKTA DO Electronically signed by: MONTRELL BHAKTA DO 11/01/212129 Reviewed: Reviewed by Az Diagonstic Imaging: CT Plain Films/CT/US/NM/MRI: head, other Comments [facility] [place], [place] NAME: KATARZYNA WEAVER [facility] REC#: [id number] PT STATUS: REG ER : 1965 PHYSICIAN: HOLLY MAE APRN ADMIT DATE: 11/01/21/ER Signed Date of Exam:11/01/21 CT HEAD/CERVICAL SPINE WO PROCEDURE: CT head and CT cervical spine without contrast. TECHNIQUE: Multiple contiguous axial images were obtained through the brain and cervical spine without the use of intravenous contrast. Sagittal and coronal reformations through the cervical spine were then performed. Auto Exposure Controls were utilized during the CT exam to meet ALARA standards for radiation dose reduction. INDICATION: 56-year-old female, post fall with hip and neck pain. CORRELATION STUDY: CT head 03/28/2013 FINDINGS: CT HEAD: Ventricles and sulci are age-appropriate. Generally normal montejo-white differentiation. No regional areas of decreased attenuation suggest edema. No intracranial hemorrhage. No hyperdense intracranial vascular sign. Hyperostosis frontalis. Bony calvarium intact. Absence of maxillary teeth. Paranasal sinuses mastoid air cells are generally clear. CT CERVICAL SPINE: Cervical spine alignment is anatomic. Vertebral body heights maintained. Disc spaces have very minimal areas of narrowing. Mild asymmetric areas of hypertrophic facet arthropathy. No high degree osseous encroachment or narrowing in the canal and/or foramina. Odontoid intact. Paraspinal soft tissues unremarkable. Lung apices unremarkable. Mild vascular calcification of carotid bulbs. IMPRESSION: CT HEAD: 1. Negative for acute intracranial abnormality. CT CERVICAL SPINE: 1. Negative for acute fracture or traumatic subluxation. Mild multilevel cervical spondylosis. Dictated by: Dictated on workstation # [id number] Dict: 11/01/212015 Trans: 11/01/212129 [facility] [id number] Interpreted by: MONTRELL BHAKTA DO Electronically signed by: MONTRELL BHAKTA DO 11/01/212129 Reviewed: Reviewed by Me (HOLLY MAE APRN) Departure Communication (Admissions) Time/Spoke to Admitting Phy: 20:56 Dr. Power Time/Spoke to Consulting Phy: 20:51 Dr. Molina (HOLLY MAE APRN) Impression Primary Impression: Hyperglycemia Additional Impressions: Non-compliant behavior Fracture of greater trochanter of left femur Fall on same level Disposition: ADMITTED INPATIENT Condition: Stable Admissions Decision to Admit Reason: Admit from ER (General) Decision to Admit/Date: Nov 01, 2021 Time/Decision to Admit Time: 20:40 (HOLLY MAE APRN) Departure-Patient Inst. Referrals: [facility] (PCP/Family) Primary Care Physician ATTENDING PHYSICIAN NOTE: I WAS PHYSICALLY PRESENT ER PHYSICIAN, BUT I WAS NOT INVOLVED IN ANY DECISION MAKING OR ANY CARE OF THIS PATIENT, AND I AM NOT COLLABORATING PHYSICIAN. (STEPHAN,GIO K DO) Copy Copies To 1: [facility]/HOLLY STRICKLAND APRN Nov 01, 2021 19:00 GIO ROTHMAN DO Nov 02, 2021 05:36
[2021-11-01 19:40] LABS: BASOPHILS % (AUTO) 0 % (0-10); EOSINOPHILS # (AUTO) 0.1 10^3/uL (0.0-0.3); EOSINOPHILS % (AUTO) 1 % (0-10); HEMATOCRIT 42 % (35-52); HEMOGLOBIN 14.3 g/dL (11.5-16.0); LYMPHOCYTES # (AUTO) 2.5 10^3/uL (1.0-4.0); LYMPHOCYTES % (AUTO) 29 % (12-44); MEAN CORPUSCULAR HEMOGLOBIN 29 pg (25-34); MEAN CORPUSCULAR HGB CONC 34 g/dL (32-36); MEAN CORPUSCULAR VOLUME 83 fL (80-99); MEAN PLATELET VOLUME 10.3 fL (9.0-12.2); MONOCYTES # (AUTO) 0.7 10^3/uL (0.0-1.0); MONOCYTES % (AUTO) 8 % (0-12); NEUTROPHILS # (AUTO) 5.1 10^3/uL (1.8-7.8); NEUTROPHILS % (AUTO) 60 % (42-75); PLATELET COUNT 240 10^3/uL (130-400); WHITE BLOOD COUNT 8.5 10^3/uL (4.3-11.0)
[2021-11-01 19:53] LABS: ALBUMIN 3.8 GM/DL (3.2-4.5); CHLORIDE 97 MMOL/L (98-107); POTASSIUM 4.3 MMOL/L (3.6-5.0); SODIUM 134 MMOL/L (135-145)
[2021-11-01 19:54] LABS: CALCIUM 9.9 MG/DL (8.5-10.1)
[2021-11-01 19:55] LABS: TOTAL PROTEIN 7.2 GM/DL (6.4-8.2)
[2021-11-01 19:56] LABS: CARBON DIOXIDE 20 MMOL/L (21-32)
[2021-11-01 19:57] LABS: BILIRUBIN,TOTAL 0.5 MG/DL (0.1-1.0)
[2021-11-01 19:59] LABS: ALKALINE PHOSPHATASE 103 U/L (40-136); CREATININE SERUM 1.51 MG/DL (0.60-1.30); GFR ESTIMATED 40
[2021-11-01 20:00] LABS: BUN/CREATININE RATIO 20
[2021-11-01 20:02] LABS: ALANINE AMINOTRANSFERASE 13 U/L (0-55)
[2021-11-01 20:03] LABS: GLUCOSE 734 MG/DL (70-105)
--- NOTE | 2021-11-01 20:23 | Diagnostic Imaging Report ---
PROCEDURE: CT head and CT cervical spine without contrast. TECHNIQUE: Multiple contiguous axial images were obtained through the brain and cervical spine without the use of intravenous contrast. Sagittal and coronal reformations through the cervical spine were then performed. Auto Exposure Controls were utilized during the CT exam to meet ALARA standards for radiation dose reduction. INDICATION: 56-year-old female, post fall with hip and neck pain. CORRELATION STUDY: CT head 03/28/2013 FINDINGS: CT HEAD: Ventricles and sulci are age-appropriate. Generally normal montejo-white differentiation. No regional areas of decreased attenuation suggest edema. No intracranial hemorrhage. No hyperdense intracranial vascular sign. Hyperostosis frontalis. Bony calvarium intact. Absence of maxillary teeth. Paranasal sinuses mastoid air cells are generally clear. CT CERVICAL SPINE: Cervical spine alignment is anatomic. Vertebral body heights maintained. Disc spaces have very minimal areas of narrowing. Mild asymmetric areas of hypertrophic facet arthropathy. No high degree osseous encroachment or narrowing in the canal and/or foramina. Odontoid intact. Paraspinal soft tissues unremarkable. Lung apices unremarkable. Mild vascular calcification of carotid bulbs. IMPRESSION: CT HEAD: 1. Negative for acute intracranial abnormality. CT CERVICAL SPINE: 1. Negative for acute fracture or traumatic subluxation. Mild multilevel cervical spondylosis. Dictated by: Dictated on workstation # [id number]
--- NOTE | 2021-11-01 20:25 | Diagnostic Imaging Report ---
INDICATION: Hip pain post fall TECHNIQUE: AP pelvis along with 2 views left hip, 8:18 PM CORRELATION STUDY: None FINDINGS: Comminuted fracture at the superior aspect of the left greater trochanter. Definitive extension through the intertrochanteric aspect does not appear to be suggested. The femoral head acetabular relationship is maintained. The remainder of the pelvis as well as a right hip are maintained. SI joints and pubic sepsis are preserved. There is a transitional anatomy at the lumbosacral junction with partial lumbarization at S1. IMPRESSION: Slightly comminuted, relatively nondisplaced fracture involving the greater trochanter proximal left femur. . Dictated by: Dictated on workstation # [id number]
[2021-11-01] MEDS ORDERED: NS IV 1000 ML 1,000 ML IV ONE (20:30)
[2021-11-01] MEDS ORDERED: inSUlin (REGULAR) HUMAN 1 UNIT/0.01 ML (CHARGE PER UNIT) IV ONE (20:30)
[2021-11-01] MEDS ORDERED: inSUlin ASPART (NovoLOG) 1 UNIT/0.01 ML (CHARGE PER UNIT) ONE (20:36)
[2021-11-01] MEDS ORDERED: NS IV 1000 ML 1,000 ML ONE (20:36)
[2021-11-01] MEDS ORDERED: inSUlin (REGULAR) HUMAN 1 UNIT/0.01 ML (CHARGE PER UNIT) ONE (20:40)
[2021-11-01] MEDS ORDERED: fentaNYL INJ 100 MCG/2 ML AMP IVP ONE (20:45)
[2021-11-01 21:25] LABS: AMPHETAMINE SCREEN, URINE POSITIVE (NEGATIVE); BARBITURATE SCREEN URINE NEGATIVE (NEGATIVE); BENZODIAZEPINES SCREEN URINE NEGATIVE (NEGATIVE); CANNABINOID SCREEN, URINE NEGATIVE (NEGATIVE); COCAINE SCREEN URINE NEGATIVE (NEGATIVE); METHADONE STAT NEGATIVE (NEGATIVE); OPIATE SCREEN URINE NEGATIVE (NEGATIVE); OXYCODONE STAT NEGATIVE (NEGATIVE); PROPOXYPHENE STAT NEGATIVE (NEGATIVE); TRICYCLIC ANTIDEPRESSANTS SCRE NEGATIVE (NEGATIVE)
[2021-11-01] MEDS ORDERED: HYDROmorphone 2 MG/ML VIAL (DILAUDID) IV PRN (22:30)
[2021-11-01] MEDS ORDERED: MILK OF MAGNESIA 400 MG/5 ML 30 ML UDC PO PRN (22:30)
[2021-11-01] MEDS ORDERED: BISACODYL 10 MG SUPP (DULCOLAX) PR PRN (22:30)
[2021-11-01] MEDS ORDERED: NS IV 500 ML 500 ML IV PRN (22:30)
[2021-11-01] MEDS ORDERED: ENOXAPARIN 40 MG/0.4 ML (LOVENOX) SYR SC SCH (22:30)
[2021-11-01] MEDS: NS IV 1000 ML 1,000 ML IV SCH (22:30)
[2021-11-01] MEDS ORDERED: ZIPRASIDONE 20 MG INJ (GEODON) VIAL IM PRN (22:30)
[2021-11-01] MEDS ORDERED: CALCIUM CARBONATE 500 MG (TUMS) TAB.CHEW PO PRN (22:30)
[2021-11-01] MEDS ORDERED: ANTACID SUSP 30 ML UDC (MYLANTA) PO PRN (22:30)
[2021-11-01] MEDS ORDERED: ACETAMINOPHEN 325 MG TABLET PO PRN (22:30)
[2021-11-01] MEDS ORDERED: morphine IMMEDIATE RELEASE 15 MG TABLET PO PRN (22:30)
[2021-11-01] MEDS ORDERED: NS IV 1000 ML 1,000 ML IV SCH (22:30)
[2021-11-01] MEDS ORDERED: diphenhydrAMINE 50 MG/ML INJ (BENADRYL) IVP PRN (22:30)
[2021-11-01] MEDS ORDERED: polyethylene glycoL POWDER 17 GM (MIRALAX) PACK PO PRN (22:30)
[2021-11-01] MEDS ORDERED: LACTULOSE SYRUP 10GM/15ML (ENULOSE) 30ML UDC PO PRN (22:30)
[2021-11-01] MEDS ORDERED: ONDANSETRON 4 MG/2 ML (SDV) Z0FRAN IV PRN (22:30)
[2021-11-01] MEDS ORDERED: ONDANSETRON 4 MG (ZOFRAN) ORAL DISSOLVE TAB PO PRN (22:30)
[2021-11-01] MEDS ORDERED: POTASSIUM CL 10MEQ/50ML IVPB 50 ML IV SCH (22:30)
[2021-11-01] MEDS ORDERED: LORazepam 0.5 MG (ATIVAN) TABLET PO PRN (22:30)
[2021-11-01] MEDS ORDERED: MELATONIN 3 MG TABLET PO PRN (22:30)
[2021-11-01] MEDS ORDERED: WATER (STERILE) FOR INJ 10 ML BTL INJ SCH (22:30)
[2021-11-01] MEDS ORDERED: diphenhydrAMINE 25 MG TAB (BENADRYL) PO PRN (22:30)
[2021-11-01 22:36] LABS: BILIRUBIN,URINE NEGATIVE (NEGATIVE); CLARITY,URINE CLEAR; COLOR,URINE YELLOW; GLUCOSE, URINE (UA) 3+ (NEGATIVE); KETONES,URINE NEGATIVE (NEGATIVE); LEUKOCYTE ESTERASE ,URINE NEGATIVE (NEGATIVE); NITRITE,URINE NEGATIVE (NEGATIVE); PH,URINE 5.5 (5-9); PROTEIN,URINE NEGATIVE (NEGATIVE)
[2021-11-01 22:45] LABS: BACTERIA,URINE TRACE /HPF; WBC,URINE RARE /HPF
[2021-11-01 23:24] VITALS: BP 107/89
[2021-11-01] MEDS ORDERED: RT-ALBUTEROL SULF 2.5 MG/3 ML PRE-MIX VIAL INH PRN (23:45)
--- NOTE | 2021-11-02 00:08 | Tele-ICU Progress Note ---
Progress Note 56F admitted after trip and fall, unable to bear weight. Found to have left intratrochanteric fracture, but declined surgery. She is homeless and concerned about social issues. Primary team plans to readdress in AM. Incidentally found to have glucose of 700 and anion gap 15. DKA protocol intiated. - DKA: glucose already in half prior to initiation of gtt. BMP not yet repeated. Will likely wean off soon. Protocol in place. - hip fracture: pain control, bed rest. Will need further discussion with patient. While her concerns are valid, her situation would certainly be worse without surgical intervention. - substance abuse: supportive care, monitor for signs of withdrwal. Focused Exam Height, Weight, BMI Height: 5'7.00" Weight: 190lbs. 3.2oz. 86.843705cm; 21.17 BMI Method:Stated CAROLINA TOBIAS MD Nov 02, 2021 00:08
[2021-11-02] MEDS: 1/2 NS IV SOLUTION 1,000 ML IV SCH ×3 (01:10→06:30)
[2021-11-02] MEDS: POTASSIUM CL 10MEQ/50ML IVPB 50 ML IV SCH ×4 (01:10→07:43)
[2021-11-02] MEDS: D5 1/2 NS 1000 ML IV SOLUTION 1,000 ML IV SCH ×2 (04:15→07:43)
[2021-11-02 04:58] LABS: BASOPHILS % (AUTO) 0 % (0-10); EOSINOPHILS # (AUTO) 0.2 10^3/uL (0.0-0.3); EOSINOPHILS % (AUTO) 2 % (0-10); HEMATOCRIT 38 % (35-52); HEMOGLOBIN 12.9 g/dL (11.5-16.0); LYMPHOCYTES # (AUTO) 3.9 10^3/uL (1.0-4.0); LYMPHOCYTES % (AUTO) 41 % (12-44); MEAN CORPUSCULAR HEMOGLOBIN 28 pg (25-34); MEAN CORPUSCULAR HGB CONC 34 g/dL (32-36); MEAN CORPUSCULAR VOLUME 83 fL (80-99); MEAN PLATELET VOLUME 10.4 fL (9.0-12.2); MONOCYTES # (AUTO) 0.8 10^3/uL (0.0-1.0); MONOCYTES % (AUTO) 8 % (0-12); NEUTROPHILS # (AUTO) 4.6 10^3/uL (1.8-7.8); NEUTROPHILS % (AUTO) 48 % (42-75); PLATELET COUNT 206 10^3/uL (130-400); WHITE BLOOD COUNT 9.6 10^3/uL (4.3-11.0)
[2021-11-02 05:49] LABS: ALBUMIN 3.1 GM/DL (3.2-4.5); POTASSIUM 3.8 MMOL/L (3.6-5.0)
[2021-11-02 05:50] LABS: CALCIUM 8.5 MG/DL (8.5-10.1)
[2021-11-02 05:53] LABS: BILIRUBIN,TOTAL 0.6 MG/DL (0.1-1.0)
[2021-11-02 05:55] LABS: CREATININE SERUM 0.7 MG/DL (0.60-1.30); PHOSPHORUS 3.2 MG/DL (2.3-4.7)
[2021-11-02 05:58] LABS: MAGNESIUM 1.6 MG/DL (1.6-2.4)
[2021-11-02] MEDS ORDERED: KCL 20 MEQ TAB (K-DUR) PO SCH (06:00)
[2021-11-02] MEDS ORDERED: MAGNESIUM 1 GM/100 ML IVPB 100 ML IV SCH (06:00)
[2021-11-02] MEDS ORDERED: POTASSIUM CL 10MEQ/50ML IVPB 50 ML IV SCH (06:00)
[2021-11-02] MEDS: NS IV 1000 ML 1,000 ML IV SCH (06:30)
[2021-11-02] MEDS: MAGNESIUM 1 GM/100 ML IVPB 100 ML IV SCH ×2 (06:35→07:40)
[2021-11-02] MEDS ORDERED: DOCUSATE SODIUM 100 MG (COLACE) CAP PO SCH (09:00)
[2021-11-02] MEDS ORDERED: SENNOSIDES 8.6 MG (SENOKOT) TAB PO SCH (09:00)
--- NOTE | 2021-11-02 10:04 | Physical Therapy Evaluation ---
PT Evaluation-General Medical Diagnosis Admission Date Nov 01, 2021 at 21:05 Medical Diagnosis: left greater trochanter fracture Onset Date: Nov 01, 2021 Therapy Diagnosis Therapy Diagnosis: debility/weakness Height/Weight Height (Feet): 5 Height (Inches): 7.00 Weight (Pounds): 190 Weight (Ounces): 3.2 Precautions Precautions/Isolations: Fall Prevention, Standard Precautions Referral Physician: Jannet Reason for Referral: Evaluation/Treatment Medical History Pertinent Medical History: Alcoholism, CAD, COPD, DM, Neuropathy, Smoking Current History EMS secondary to patient tripped and fell landing on left hip resulting in greater trochanter fracture Reviewed History: Yes Social History Current Living Status: Homeless Prior Prior Level of Function SCALE: Activities may be completed with or without assistive devices. 9-Sgrdngtwey-xeqldoa completes the activity by him/herself with no assistance from a helper. 5-Set-up or Clean-up Assistance-helper sets up or cleans up; patient completes activity. Ben Bolt assists only prior to or following the activity. 4-Supervision or Touching Assistance-helper provides verbal cues and/or touching/steadying and/or contact guard assistance as patient completes activity. Assistance may be provided throughout the activity or intermittently. 3-Partial/Moderate Assistance-helper does LESS THAN HALF the effort. Ben Bolt lifts, holds or supports trunk or limbs, but provides less than half the effort. 2-Substantial/Maximal Assistance-helper does MORE THAN HALF the effort. Ben Bolt lifts or holds trunk or limbs and provides more than half the effort. 3-Qljaknnpt-fdrnpq does ALL the effort. Patient does none of the effort to complete the activity. Or, the assistance of 2 or more helpers is required for the patient to complete the activity. If activity was not attempted, code reason: 7-Patient Refused. 9-Not Applicable-not attempted and the patient did not perform the activity before the current illness, exacerbation or injury. 10-Not Attempted due to Environmental Limitations-(lack of equipment, weather restraints, etc.). 88-Not Attempted due to Medical Conditions or Safety Concerns. Bed Mobility: 6 Transfers (B,C,W/C): 6 Gait: 6 Stairs: 6 Indoor Mobility (Ambulation): Independent Stairs: Independent Prior Devices Use: None PT Evaluation-Current Subjective Patient agrees to PT. Objective Patient Orientation: Person, Time Attachments: Richardson Catheter, IV ROM/Strength ROM Lower Extremities bilateral LE WFL (patient guard left LE due to pain) Strength Lower Extremities left LE 3/5 grossly/right LE 4/5 grossly Integumentary/Posture Integumentary refer to nursing notes Bladder Incontinence: Richardson Cath Posture WFL Neuromuscular (Tone, Coordination, Reflexes) grossly intact Sensory Vision: Functional Hearing: Functional Transfers Lying to Sitting/Side of Bed(Q: 3 Sit to Stand (QC): 4 Chair/Cdf-co-Omzqz Xfer(QC): 4 Gait Does the Patient Walk?: Yes Mode of Locomotion: Walk Anticipated Mode of Locomotion: Walk Walk 10 feet (QC): 4 Distance: 10' Gait Assistive Device: FWW Comments/Gait Description slow, steady gait sequence Balance Sitting Static: Normal Sitting Dynamic: Normal Standing Static: Fair Standing Dynamic: Fair Assessment/Needs 56 y.o. female, will benefit from skilled PT to address functional strength and mobility to improve current LOF. Per report, patient is homeless. Rehab Potential: Fair PT Buyers' Agent Goals Intermediate Goals PT Intermediate Goals Time Frame: Nov 11, 2021 Roll Left & Right (QC): 6 Sit to Lying (QC): 6 Lying-Sitting on Side/Bed(QC): 6 Sit to Stand (QC): 6 Chair/Whg-td-Hbafu Xfer(QC): 6 Toilet Transfer (QC): 6 Walk 10 feet (QC): 6 Walk 50ft with 2 Turns (QC): 6 Walk 150 ft (QC): 6 PT Plan Problem List Problem List: Activity Tolerance, Functional Strength, Safety, Balance, Gait, Transfer, Bed Mobility Treatment/Plan Treatment Plan: Continue Plan of Care Treatment Plan: Bed Mobility, Education, Functional Activity Maggy, Functional Strength, Gait, Safety, Therapeutic Exercise, Transfers Treatment Duration: Nov 11, 2021 Frequency: 11 times per week Estimated Hrs Per Day: .5 hour per day Patient and/or Family Agrees t: Yes Time/GCodes Time In: 745 Time Out: 800 Total Billed Treatment Time: 15 Total Billed Treatment 1 visit EVModC 15 min KATARZYNA MCDONALD PT Nov 02, 2021 10:04
--- NOTE | 2021-11-02 10:27 | Tele-ICU Progress Note ---
Subjective Date Seen by a Provider: Nov 02, 2021 Time Seen by a Provider: 08:33 Subjective/Events-last exam (Tele-ICU Physician , Progress Note ) Available chart/ vitals / labs / Images reviewed Video assessment done using teleICU camera, rest of exam as per RN Discussed with RN Events overnight : Afebrile hemodynamically stable Respiratory - I/O = Drips: Pressors- no Consultants: Hospital course: (11/01) Admitted a 56y/o s/p fall with a left femur fracture and hyperglycemia. Utox positive for methamphetamines and amphetamines. (11/02) Insulin gtt A/P left intratrochanteric fracture, post fall - pain control - as per sx DKA - insulin gtt to stop, cont ISS substance abuse ( Utox positive for methamphetamines and amphetamines. ) - supportive care, monitor for signs of withdrwal. s/p fall - -CT head/cerv - negative Lines : , (Central Line Necessity Reviewed) Richardson: OG: Nutrition: Analgesia: Anxiety/ delirium VTE Prophylaxis: Stress Ulcer Prophylaxis: Plans in collaboration with bedside consultants and IM MDs. Discussed with RN to reach out if any questions or concerns A total of 15 minutes of critical care time was devoted to this patient today, required to treat and/or prevent further deterioration of critical care condition ( as above ) . Sepsis Event Evaluation Height, Weight, BMI Height: 5'7.00" Weight: 190lbs. 3.2oz. 86.161536pb; 21.17 BMI Method:Stated Exam Exam Patient acknowledged, consented, and participated in this virtual visit which was conducted using real time audio/video Vital Signs Date Time Temp Pulse Resp B/P (MAP) Pulse Ox O2 Delivery O2 Flow Rate FiO2 11/02/21 09:00 72 15 105/64 100 Room Air 11/02/21 08:18 98 Room Air 11/02/21 08:00 82 62 103/76 89 Room Air 11/02/21 07:46 36.3 11/02/21 07:00 76 11/02/21 07:00 74 15 137/71 92 Room Air 11/02/21 06:00 71 15 138/77 97 Room Air 11/02/21 05:00 71 13 152/83 100 Room Air 11/02/21 04:00 74 11 159/80 97 Room Air 11/02/21 04:00 97 Room Air 11/02/21 03:00 81 14 147/101 97 Room Air 11/02/21 02:00 87 11 163/90 98 Room Air 11/02/21 01:00 90 10 158/87 98 Room Air 11/02/21 01:00 89 11/02/21 00:00 86 48 166/82 96 Room Air 11/01/21 23:59 98 Room Air 11/01/21 23:24 36.5 95 96 21 11/01/21 23:00 85 20 135/71 92 Room Air 11/01/21 22:25 95 Room Air 11/01/21 22:15 78 22 139/77 92 Room Air 11/01/21 22:00 36.9 80 20 111/68 95 Room Air 11/01/21 21:30 125/85 11/01/21 21:00 18 138/79 98 Room Air 11/01/21 20:30 18 135/88 99 Room Air 11/01/21 20:00 88 18 131/77 99 Room Air 11/01/21 19:30 92 18 141/74 98 Room Air 11/01/21 18:55 36.5 95 18 107/89 (95) 96 Room Air I & O 11/02/21 06:59 Intake Total 3450 ml Output Total 1900 ml Balance 1550 ml Height & Weight Height: 5'7.00" Weight: 190lbs. 3.2oz. 86.754196fq; 21.17 BMI Method:Stated General Appearance: No Apparent Distress Capillary Refill: Less Than 3 Seconds Gastrointestinal: normal bowel sounds, non tender, soft Results Lab Laboratory Tests 11/01/21 19:35 11/02/21 04:35 11/02/21 04:50 Assessment/Plan Assessment/Plan 1 LETITIA CAPONE MD Nov 02, 2021 10:27
--- NOTE | 2021-11-02 13:16 | Short Stay Summary-Hospitalist ---
ALBA BURCIAGA 11/02/21 1316: History of Present Illness HPI/Chief Complaint CC: Hip Fracture, DKA HPI: 56yo Female patient presented to the ED on 11/01 after experiencing a same level fall onto the concrete. After which she was unable to bear weight on her lower extremity and complained of pain in the left hip, her head, and neck. She had a CT head and neck done which showed no acute pathology. She also had a X- ray of the pelvis which showed that she had a fracture of the proximal left femur. Upon further workup she was found to have a blood glucose of 734 and suspected DKA. She was also positive for methamphetamines in her urine tox screen. She was admitted to the ICU for management of DKA. The patient left AMA the morning of 11/02/2021 before being able to be seen by a provider. She walked out under her own power after refusing to leave in a wheelchair. Source: RN notes reviewed, EMS notes reviewed Exam Limitations: other (Pt. left AMA) Date Seen 11/02/21 Time Seen by a Provider: 09:45 Attending Physician [facility] PCP Admitting Physician: Billie Power DO Attending Physician: Billie Power DO Referring Physician Date of Admission Nov 01, 2021 at 21:05 Home Medications & Allergies Home Medications Reviewed patient Home Medication Reconciliation performed by pharmacy medication reconciliations tower technician and/or nursing. Patients Allergies have been reviewed. Allergies Allergies Coded Allergies levofloxacin (Verified Allergy, Unknown, 06/21/14) sulfamethoxazole (Unverified Allergy, Unknown, 06/21/14) trimethoprim (Unverified Allergy, Unknown, 06/21/14) Past Medical/Social/Family Hx Patient Social History Tobacco Use?: Yes Tobacco type used: Cigarettes Smoking Status: Current Someday Smoker Use of E-Cig and/or Vaping dev: No Substance use?: Yes Substance type: Methamphetamine Substance frequency: Once in a while Alcohol Use?: No Pt stated abuse/neglect: No Immunizations Up To Date Influenza Vaccine Up-to-Date: No; Not Current Tetanus Booster (TDap): Unknown Hepatitis A: No Hepatitis B: No TB Skin Test: None Date of Pneumonia Vaccine: Jun 26, 2007 Current Status status: No status: No Advance Directives: No Communicates: Verbally Primary Language: Zambian Preferred Spoken Language: Zambian Is interpretation needed?: No Implanted or Applied Medical D: Stents Past Medical History Past medical history 1. Diabetes mellitus type II 2. Schizoaffective disorder 3. ADHD 4. Tobaccoism 5. Chronic venous insufficiency 6. History of recurring deep venous thrombosis Past surgical history 1. Cholecystectomy 2. Tubal ligation 3. Hysterectomy Review of Systems ROS-Unable to Obtain: Patient left AMA Physical Exam Physical Exam Vital Signs Vital Signs - First Documented 11/01/21 11/01/21 18:55 23:24 Temp 36.5 Pulse 95 Resp 18 B/P (MAP) 107/89 (95) Pulse Ox 96 O2 Delivery Room Air FiO2 21 Capillary Refill : Less Than 3 Seconds Height, Weight, BMI Height: 5'7.00" Weight: 190lbs. 3.2oz. 86.986617zr; 21.17 BMI Method:Stated Comments Unable to do physical exam-Patient left AMA Results Results/Procedures Labs Laboratory Tests 11/01/21 19:35 11/02/21 04:35 11/02/21 04:50 Patient resulted labs reviewed. Short Stay Diagnosis Conclusion Plan Assessment: DKA Hip Fracture Plan:: Patient left AMA BILLIE POWER DO 11/03/21 0540: Review of Systems Constitutional: see HPI Physical Exam Physical Exam General Appearance: Chronically ill Short Stay Diagnosis Discharge Diagnosis-Short Stay Admission Diagnosis Left AMA Final Discharge Diagnosis Left AMA Conclusion Plan Left AMA Supervisory-Addendum Brief Verification & Attestation Participated in pt care: history, MDM, physical Personally performed: exam, history, MDM, supervision of care Care discussed with: Medical Student Procedures: n/a Results interpretation: Verified all documentation Verification and Attestation of Medical Student E/M Service A medical student performed and documented this service in my presence. I reviewed and verified all information documented by the medical student and made modifications to such information, when appropriate. I personally performed the physical exam and medical decision making. Billie Power Nov 03, 2021,05:39 ALBA BURCIAGA Nov 02, 2021 13:16 BILLIE POWER DO Nov 03, 2021 05:40
== END 2021-11-02 09:42 | disposition left against medical advice (07) ==
LOC: EDUNIT# 18:49 → ER 18:52 → UNDOADMIN 21:05 → ICU 21:05 → UNDODISIN 11-02 09:42
PROVIDERS: ADMIT Internal Medicine; ATTEND Internal Medicine
DX: E11.65 Type 2 diabetes mellitus with hyperglycemia (principal); E11.10 Type 2 diabetes mellitus with ketoacidosis without coma; S72.002A Fracture of unspecified part of neck of left femur, initial encounter for closed fracture; Z53.29 Procedure and treatment not carried out because of patient's decision for other reasons
CPT/HCPCS: 51702; 70450; 72125; 73502; 80053 ×2; 80306; 81000; 82010 ×2; 82805; 82947 ×2; 83036; 83735; 84100; 85025 ×2; 87081; 87636; 93005; 96361 ×2; 96366; 96372; 96374; 96375 ×2; 96376; 97162; 99285; G0378; G0480; 36415; 80320

== ENCOUNTER 2022-04-25 15:25 | Observation (INO) | payer MEDICARE, MEDICAID ==
[~2022-04-25] VITALS: Ht 175 cm; Wt 64.0 kg
[2022-04-25] MEDS ORDERED: NS IV 1000 ML 1,000 ML IV STA ×2 (15:37→17:44)
[2022-04-25] MEDS ORDERED: ACETAMINOPHEN 650 MG SUPP (TYLENOL) PR ONE (15:45)
--- NOTE | 2022-04-25 15:55 | Diagnostic Imaging Report ---
EXAMINATION: Chest, one view. HISTORY: Fever, AMS. COMPARISON: 08/02/2016. FINDINGS: Heart size and pulmonary vasculature are normal. There are mild interstitial opacities within both lungs. No pleural effusion or pneumothorax. Degenerative changes of the thoracic spine. Osseous structures are otherwise intact. IMPRESSION: 1. Mild interstitial opacities within the lungs, which could be seen with pulmonary edema, atypical infection, or atelectasis. Dictated by: Dictated on workstation # [id number]
[2022-04-25 15:58] LABS: BASOPHILS % (AUTO) 0 % (0-10); EOSINOPHILS % (AUTO) 0 % (0-10); HEMATOCRIT 36 % (35-52); HEMOGLOBIN 12.3 g/dL (11.5-16.0); LYMPHOCYTES # (AUTO) 1.8 X 10^3 (1.0-4.0); LYMPHOCYTES % (AUTO) 11 % (12-44); MEAN CORPUSCULAR HEMOGLOBIN 28 pg (25-34); MEAN CORPUSCULAR HGB CONC 34 g/dL (32-36); MEAN CORPUSCULAR VOLUME 82 fL (80-99); MEAN PLATELET VOLUME 11.2 fL (9.0-12.2); MONOCYTES # (AUTO) 0.9 X 10^3 (0.0-1.0); MONOCYTES % (AUTO) 5 % (0-12); NEUTROPHILS # (AUTO) 13.9 X 10^3 (1.8-7.8); NEUTROPHILS % (AUTO) 83 % (42-75); PLATELET COUNT 357 10^3/uL (130-400); WHITE BLOOD COUNT 16.8 10^3/uL (4.3-11.0)
[2022-04-25 16:02] LABS: BILIRUBIN,URINE NEGATIVE (NEGATIVE); CLARITY,URINE CLEAR; COLOR,URINE YELLOW; GLUCOSE, URINE (UA) 3+ (NEGATIVE); KETONES,URINE NEGATIVE (NEGATIVE); LEUKOCYTE ESTERASE ,URINE NEGATIVE (NEGATIVE); NITRITE,URINE NEGATIVE (NEGATIVE); PROTEIN,URINE 2+ (NEGATIVE)
[2022-04-25 16:05] LABS: CALCIUM 8.6 MG/DL (8.5-10.1)
[2022-04-25 16:07] LABS: TOTAL PROTEIN 7.7 GM/DL (6.4-8.2)
[2022-04-25 16:09] LABS: BILIRUBIN,TOTAL 0.6 MG/DL (0.1-1.0)
[2022-04-25 16:10] LABS: CREATININE SERUM 0.82 MG/DL (0.60-1.30)
[2022-04-25 16:19] LABS: INR 1.2 (0.8-1.4); PROTHROMBIN TIME PATIENT 15.6 SEC (12.2-14.7)
[2022-04-25 16:20] LABS: BACTERIA,URINE MODERATE /HPF; SQUAMOUS EPITHELIAL CELL,UR RARE /HPF; WBC,URINE 0-2 /HPF
[2022-04-25 16:21] LABS: AMORPHOUS SEDIMENT,UR FEW AMOR URATES /LPF
[2022-04-25 16:22] LABS: GRANULAR CASTS,URINE 0-2 /LPF
[2022-04-25 16:41] LABS: BAND NEUTROPHILS 11 %; LYMPHOCYTES % (MANUAL) 16 %; MONOCYTES % (MANUAL) 4 %; NEUTROPHILS % (MANUAL) 69 %
[2022-04-25 16:42] LABS: PLATELET ESTIMATE NORMAL; RBC MORPH NORMAL
--- NOTE | 2022-04-25 16:46 | ED General ---
General Chief Complaint: Fever-Adult/Adol Stated Complaint: AMS Nursing Triage Note: PT ARRIVED PER EMS, PT HAS ALTERED MENTAL STATUS AND FEVER. PT WAS LAYING ON FLOOR WHEN EMS ARRIVED. PT HAS OPEN WOUNDS NOTED ON L FOOT, OPEN SORES ON FACE. PT HAS VERY SWOLLEN REDDEND L LOWER EXT. PT HAS SL IN L AC BY EMS. Source of Information: EMS Exam Limitations: Physical Impairments History of Present Illness Date Seen by Provider: Apr 25, 2022 Time Seen by Provider: 15:25 Initial Comments 56-year-old female brought to the emergency department by EMS after family member found her poorly responsive, laying on the floor in her home. Patient has a history per review of the medical record of medical noncompliance, methamphetamine abuse. Patient is responsive to sternal rub. Slightly tachycardic with heart rate of 105. Blood pressure systolic 110. Satting 96% on room air no evidence of respiratory distress or difficulty. EMS reported temp of 101, ours. axillary is 100. She has evidence of cellulitis with a reddened swollen left lower extremity. No obvious outward signs of trauma although she does have a couple of abrasions on her face. Timing/Duration: Other (unknown) Severity: Severe Allergies and Home Medications Allergies Coded Allergies: levofloxacin (Verified Allergy, Unknown, 06/21/14) sulfamethoxazole (Unverified Allergy, Unknown, 06/21/14) trimethoprim (Unverified Allergy, Unknown, 06/21/14) Patient Home Medication List Home Medication List Reviewed: Yes Atorvastatin (Lipitor Tablet) 20 Mg Tablet, 20 MG PO DAILY, (Reported) Entered as Reported by: ANGEL SHERIDAN on 06/21/14 1246 Brexpiprazole (Rexulti) 2 Mg Tablet, (Reported) Entered as Reported by: KITTY VARMA on 01/25/16 1123 Glipizide (Glipizide Xl) 10 Mg Tab.sr.24h, 10 MG PO DAILY, (Reported) Entered as Reported by: RAJAN WRIGHT on 06/22/14 1049 Glipizide (Glipizide ER) 10 Mg Tab.er.24, 10 MG PO DAILY Prescribed by: ROLAND GONZALEZ on 11/11/16 1631 Haloperidol (Haloperidol) 5 Mg Tablet, (Reported) Entered as Reported by: ALEJO GLEASON on 10/07/162017 Metformin HCl (Metformin HCl) 500 Mg Tablet, 1,000 MG PO BID Prescribed by: ROLAND GONZALEZ on 11/11/16 1553 Metformin Hcl (Metformin 1000 Mg) 1,000 Mg Tablet, 1,000 MG PO BID, (Reported) Entered as Reported by: DORA KC on 05/19/11 1224 Tramadol HCl (Ultram) 50 Mg Tablet, 50 MG PO Q6H PRN for PAIN Prescribed by: ROYCE ARGUELLO on 06/21/16 0202 Venlafaxine HCl (Venlafaxine HCl ER) 75 Mg Cap.er.24h, 75 MG PO DAILY, (Reported) Entered as Reported by: MIKAYLA OCHOA on 06/04/15 1654 Venlafaxine HCl (Effexor Xr) 150 Mg Cap.er.24h, 150 MG PO DAILY Prescribed by: ROLAND GONZALEZ on 11/11/16 155 Review of Systems Review of Systems Constitutional: see HPI unable to obtain due to patient mental status Past Lingfsl-Xodjcl-Xaqrfz Hx Patient Social History Smoking Status: Unknown if Ever Smoked Substance use?: Unable to obtain Alcohol Use?: Unable to obtain Pt feels they are or have been: No Immunizations Up To Date Tetanus Booster (TDap): Unknown Seasonal Allergies Seasonal Allergies: No Past Medical History Surgery/Hospitalization HX: Partial Hysterectomy/Spine Surgery/Cholecystectomy Surgeries: Yes (STENT IN R URETER, BACK SURGERY, SUSANA FILTER) Gallbladder, Hysterectomy, Orthopedic, Renal, Tubal Ligation Respiratory: Yes (NO CPAP) Asthma, Sleep Apnea, COPD Currently Using CPAP: No Currently Using BIPAP: No Cardiac: Yes (DVT LEFT LEG; CHRONIC VENOUS INSUFFICIENCY) Chronic Edema/Swelling, Coronary Artery Disease, Deep Vein Thrombosis Neurological: Yes Neuropathy 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 Disorders: 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 Sexually Transmitted Disease: No HIV/AIDS: No Genitourinary: Yes Kidney Stones Gastrointestinal: Yes Gastroesophageal Reflux Musculoskeletal: Yes (CHRONIC LEG PAIN--L>R) Arthritis, Chronic Back Pain Endocrine: Yes Diabetes, Non-Insulin dep HEENT: No Loss of Vision: Denies Hearing Impairment: Denies Cancer: No Psychosocial: Yes Anxiety, Suicide Attempts, Bipolar, Depression Integumentary: Yes (VENOUS STASIS CHANGES TO LEGS-LEFT > RIGHT) Blood Disorders: Yes (HX OF BLOOD CLOTS) Adverse Reaction/Blood Tranf: No Family Medical History Diabetes mellitus 19 FATHER EMPHYSEMA 19 FATHER EPIEPSY G8 SISTER Hypertension 19 MOTHER STROKE 19 MOTHER No Family History of: Asthma Physical Exam Vital Signs Vital Signs - First Documented 04/25/22 15:25 Temp 37.8 Pulse 103 Resp 22 B/P (MAP) 104/69 (81) Pulse Ox 98 Capillary Refill : Less Than 3 Seconds Height, Weight, BMI Height: 5'7.00" Weight: 190lbs. 3.2oz. 86.758909nu; 22.00 BMI Method:Stated General Appearance: Chronically ill Eyes: Bilateral Eye Normal Inspection, Bilateral Eye PERRL, Bilateral Eye EOMI HEENT: Other (pupils 1-2mm equal bilaterally; very dry oral mucosa) Neck: Normal Inspection Respiratory: Lungs Clear, Normal Breath Sounds, No Accessory Muscle Use, No Respiratory Distress, Other (resp even and unlabored) Cardiovascular: Regular Rate, Rhythm, Tachycardia (103) Gastrointestinal: Soft, Other (non distended. She does grimace a little with deep palpation of mid lower abdomen however BS are present) Extremity: Normal Capillary Refill (cap refill 2-3 seconds), Other (LLE cellulitic anterior lower leg. no open wounds; left leg slightly more edematous than right) Neurologic/Psychiatric: Other (responds to sternal rub, says "ow"; unable otherwise to assess neuro status) Skin: Warm/Dry, Other (cellulitis LLE limited to anterior lower leg; ulcer plantar surface of left foot, base of 5th toe; superficial abrasions to face) Focused Exam Sepsis Stage: Sepsis Possible Source: Skin/Soft Tissue Lactate Level 04/25/22 15:30: Lactic Acid Level 1.08 Time of Focused Exam: 17:10 Respiratory: Lungs Clear, Normal Breath Sounds, No Accessory Muscle Use, No Respiratory Distress Cardiovascular: Regular Rate, Rhythm, Tachycardia (103) Capillary Refill: Less Than 3 Seconds Peripheral Pulses: 2+ Radial Pulses (R), 2+ Radial Pulses (L) Skin: normal color, warm/dry, rash (LLE) Lactic Acid Level Laboratory Tests Test 04/25/22 15:30 Lactic Acid Level 1.08 MMOL/L (0.50-2.00) Within 3hrs of presentation: Admin fluids, Admin ABX, Blood cultures prior to ABX's, D/C Instructions given to patient, Lactate level Progress/Results/Core Measures Suspected Sepsis SIRS Temperature: Pulse: 103 Respiratory Rate: 22 Laboratory Tests 04/25/22 15:30: White Blood Count 16.8H Blood Pressure 104 /69 Mean: 81 04/25/22 15:30: Lactic Acid Level 1.08 Laboratory Tests 04/25/22 15:30: Creatinine 0.82, INR Comment 1.2, Platelet Count 357, Total Bilirubin 0.6 Results/Orders Lab Results Laboratory Tests Test 04/25/22 15:30 04/25/22 15:50 Range/Units White Blood Count 16.8 H 4.3-11.0 10^3/uL Red Blood Count 4.37 3.80-5.11 10^6/uL Hemoglobin 12.3 11.5-16.0 g/dL Hematocrit 36 35-52 % Mean Corpuscular Volume 82 80-99 fL Mean Corpuscular Hemoglobin 28 25-34 pg Mean Corpuscular Hemoglobin Concent 34 32-36 g/dL Red Cell Distribution Width 15.7 H 10.0-14.5 % Platelet Count 357 130-400 10^3/uL Mean Platelet Volume 11.2 9.0-12.2 fL Immature Granulocyte % (Auto) 1 % Neutrophils (%) (Auto) 83 H 42-75 % Lymphocytes (%) (Auto) 11 L 12-44 % Monocytes (%) (Auto) 5 0-12 % Eosinophils (%) (Auto) 0 0-10 % Basophils (%) (Auto) 0 0-10 % Neutrophils # (Auto) 13.9 H 1.8-7.8 X 10^3 Lymphocytes # (Auto) 1.8 1.0-4.0 X 10^3 Monocytes # (Auto) 0.9 0.0-1.0 X 10^3 Eosinophils # (Auto) 0.0 0.0-0.3 10^3/uL Basophils # (Auto) 0.0 0.0-0.1 10^3/uL Immature Granulocyte # (Auto) 0.1 0.0-0.1 10^3/uL Neutrophils % (Manual) 69 % Lymphocytes % (Manual) 16 % Monocytes % (Manual) 4 % Band Neutrophils 11 % Platelet Estimate NORMAL Blood Morphology Comment NORMAL Prothrombin Time 15.6 H 12.2-14.7 SEC INR Comment 1.2 0.8-1.4 Activated Partial Thromboplast Time 36 H 24-35 SEC Sodium Level 131 L 135-145 MMOL/L Potassium Level 4.0 3.6-5.0 MMOL/L Chloride Level 98 98-107 MMOL/L Carbon Dioxide Level 23 21-32 MMOL/L Anion Gap 10 5-14 MMOL/L Blood Urea Nitrogen 16 7-18 MG/DL Creatinine 0.82 0.60-1.30 MG/DL Estimat Glomerular Filtration Rate 83 BUN/Creatinine Ratio 20 Glucose Level 282 H 70-105 MG/DL Lactic Acid Level 1.08 0.50-2.00 MMOL/L Calcium Level 8.6 8.5-10.1 MG/DL Corrected Calcium 9.4 8.5-10.1 MG/DL Total Bilirubin 0.6 0.1-1.0 MG/DL Aspartate Amino Transf (AST/SGOT) 15 5-34 U/L Alanine Aminotransferase (ALT/SGPT) 13 0-55 U/L Alkaline Phosphatase 99 40-136 U/L Total Protein 7.7 6.4-8.2 GM/DL Albumin 3.0 L 3.2-4.5 GM/DL Influenza Type A (RT-PCR) Not Detected Not Detecte Influenza Type B (RT-PCR) Not Detected Not Detecte SARS-CoV-2 RNA (RT-PCR) Not Detected Not Detecte Urine Color YELLOW Urine Clarity CLEAR Urine pH 6.0 5-9 Urine Specific [place] 1.025 H 1.016-1.022 Urine Protein 2+ H NEGATIVE Urine Glucose (UA) 3+ H NEGATIVE Urine Ketones NEGATIVE NEGATIVE Urine Nitrite NEGATIVE NEGATIVE Urine Bilirubin NEGATIVE NEGATIVE Urine Urobilinogen 0.2 < = 1.0 MG/DL Urine Leukocyte Esterase NEGATIVE NEGATIVE Urine RBC (Auto) TRACE-I H NEGATIVE Urine RBC 2-5 H /HPF Urine WBC 0-2 /HPF Urine Squamous Epithelial Cells RARE /HPF Urine Crystals PRESENT H /LPF Urine Amorphous Sediment FEW JENNIFER URATES H /LPF Urine Bacteria MODERATE H /HPF Urine Casts PRESENT /LPF Urine Hyaline Casts 2-5 H /LPF Urine Granular Casts 0-2 H /LPF Urine Mucus SMALL H /LPF Urine Culture Indicated CULTURE PENDING Urine Opiates Screen NEGATIVE NEGATIVE Urine Oxycodone Screen NEGATIVE NEGATIVE Urine Methadone Screen NEGATIVE NEGATIVE Urine Propoxyphene Screen NEGATIVE NEGATIVE Urine Barbiturates Screen NEGATIVE NEGATIVE Ur Tricyclic Antidepressants Screen NEGATIVE NEGATIVE Urine Phencyclidine Screen NEGATIVE NEGATIVE Urine Amphetamines Screen POSITIVE H NEGATIVE Urine Methamphetamines Screen POSITIVE H NEGATIVE Urine Benzodiazepines Screen NEGATIVE NEGATIVE Urine Cocaine Screen NEGATIVE NEGATIVE Urine Cannabinoids Screen NEGATIVE NEGATIVE My Orders Orders - REYES CRISOSTOMO MD Cbc With Automated Diff (04/25/22 15:37) Comprehensive Metabolic Panel (04/25/22 15:37) Blood Culture (04/25/22 15:37) Sputum Culture (04/25/22 15:37) Urinalysis (04/25/22 15:37) Urine Culture (04/25/22 15:37) Protime With Inr (04/25/22 15:37) Partial Thromboplastin Time (04/25/22 15:37) Chest 1 View, Ap/Pa Only (04/25/22 15:37) Ed Iv/Invasive Line Start (04/25/22 15:37) Ed Iv/Invasive Line Start (04/25/22 15:37) Vital Signs Adult Sepsis Patie Q15M (04/25/22 15:37) O2 (04/25/22 15:37) Remove Rings In Anticipation O (04/25/22 15:37) Lactic Acid Analyzer (04/25/22 15:37) Ns Iv 1000 Ml (Sodium Chloride 0.9%) (04/25/22 15:37) Catheter(Urinary) Insert & Ass 03,15 (04/25/22 15:37) Acetaminophen Suppository (Tylenol Suppo (04/25/22 15:45) Covid 19 Inhouse Test (04/25/22 15:41) Influenza A And B By Pcr (04/25/22 15:41) Isolation Central Supply Req (04/25/22 15:41) Manual Differential (04/25/22 15:30) Drug Screen Stat (Urine) (04/25/22 16:42) Piperacillin Sodium/Tazobactam (Zosyn Vi (04/25/22 17:00) Medications Given in ED Current Medications Medications Dose Ordered Sig/Phuc Route Start Time Stop Time Status Last Admin Dose Admin Acetaminophen 650 mg ONCE ONCE SC 04/25/22 15:45 04/25/22 15:46 DC 04/25/22 16:04 650 MG Piperacillin Sod/ Tazobactam Sod 4.5 gm/Sodium Chloride 100 ml @ 200 mls/hr ONCE ONCE IV 04/25/22 17:00 2/15/23 17:29 04/25/22 17:09 200 MLS/HR Vital Signs/I&O 04/25/22 04/25/22 15:25 16:04 Temp 37.8 37.8 Pulse 103 Resp 22 B/P (MAP) 104/69 (81) Pulse Ox 98 Capillary Refill : Less Than 3 Seconds Blood Pressure Mean: 81 Progress Note : Time: 17:31 Progress Note Patient seen and evaluated by me, 56-year-old altered mental status, fever. Evaluation today includes physical exam, CBC, Chem-12, lactic acid, coags, urinalysis chest x-ray, CT head without contrast. Differential based on history and physical exam, cellulitis/sepsis, stroke, intoxication. CBC shows a leukocytosis at 16,000, chemistry shows hyperglycemia consistent with known history of diabetes. Lactic acid less than 2. Coags are little high. Home meds reviewed it does not appear that she is on any blood thinning agents. Urinalysis shows microscopic hematuria with moderate bacteriuria. Chest x-ray mild interstitial opacities consistent with atypical pneumonitis versus atelectasis. Technically patient meets criteria for sepsis with leukocytosis, source of infection, tachycardia and fever. She was given 2 L of IV fluids. Started on Zosyn. I discussed need for hospitalization with her son who is at the bedside. He states she has a known history of "doing bad things". He suggested that a urine drug screen might not be a bad idea. This had been done, patient is positive for methamphetamine. I did not communicate this to the son. Discussed the case with Dr. Navarro. She did recommend a CT head without contrast which the patient will be sent over for now. She was moving all 4 extremities, is quite somnolent but responds to a sternal rub. Seems to be protecting her airway well. No vomiting, no coughing. Room air sats acceptable at 95 to 97%. We will put her on medical with telemetry. Diagnostic Imaging Diagonstic Imaging: Xray Plain Films/CT/US/NM/MRI: chest Comments [facility] [place], [place] NAME: KATARZYNA WEAVER [facility] REC#: [id number] PT STATUS: REG ER : 1965 PHYSICIAN: REYES CRISOSTOMO MD ADMIT DATE: 04/25/22/ER Signed Date of Exam:04/25/22 CHEST 1 VIEW, AP/PA ONLY EXAMINATION: Chest, one view. HISTORY: Fever, AMS. COMPARISON: 08/02/2016. FINDINGS: Heart size and pulmonary vasculature are normal. There are mild interstitial opacities within both lungs. No pleural effusion or pneumothorax. Degenerative changes of the thoracic spine. Osseous structures are otherwise intact. IMPRESSION: 1. Mild interstitial opacities within the lungs, which could be seen with pulmonary edema, atypical infection, or atelectasis. Dictated by: Dictated on workstation # [id number] Dict: 04/25/22 1551 Trans: 04/25/22 1558 [id number] Interpreted by: CHARLEY ESTRADA DO Electronically signed by: CHARLEY ESTRADA DO 04/25/22 1558 Departure Communication (Admissions) Time/Spoke to Admitting Phy: 17:[address] Navarro (FP for [facility]) Impression Primary Impression: Cellulitis Qualified Codes: L03.116 - Cellulitis of left lower limb Additional Impressions: Methamphetamine abuse Diabetes Qualified Codes: E11.628 - Type 2 diabetes mellitus with other skin complications Altered mental status Qualified Codes: R41.82 - Altered mental status, unspecified Sepsis Qualified Codes: A41.9 - Sepsis, unspecified organism Disposition: ADMITTED INPATIENT Condition: Stable Admissions Decision to Admit Reason: Admit from ER (General) Decision to Admit/Date: Apr 25, 2022 Time/Decision to Admit Time: 17:20 Departure-Patient Inst. Referrals: [facility] (PCP/Family) Primary Care Physician REYES CRISOSTOMO MD Apr 25, 2022 16:46
[2022-04-25 17:00] LABS: AMPHETAMINE SCREEN, URINE POSITIVE (NEGATIVE); BARBITURATE SCREEN URINE NEGATIVE (NEGATIVE); BENZODIAZEPINES SCREEN URINE NEGATIVE (NEGATIVE); CANNABINOID SCREEN, URINE NEGATIVE (NEGATIVE); COCAINE SCREEN URINE NEGATIVE (NEGATIVE); METHADONE STAT NEGATIVE (NEGATIVE); OPIATE SCREEN URINE NEGATIVE (NEGATIVE); OXYCODONE STAT NEGATIVE (NEGATIVE); PROPOXYPHENE STAT NEGATIVE (NEGATIVE); TRICYCLIC ANTIDEPRESSANTS SCRE NEGATIVE (NEGATIVE)
[2022-04-25] MEDS ORDERED: PIPERACILLIN SODIUM/TAZOBACTAM 4.5 GM in NS (IVPB) 100 ML IV ONE (17:00)
--- NOTE | 2022-04-25 18:18 | Diagnostic Imaging Report ---
PROCEDURE: CT head without contrast. TECHNIQUE: Multiple contiguous axial images were obtained through the brain without the use of intravenous contrast. Auto Exposure Controls were utilized during the CT exam to meet ALARA standards for radiation dose reduction. INDICATION: 56-year-old female, altered mental status, fever. CORRELATION: 11/01/2021. FINDINGS: There is no midline shift or mass effect. The ventricles and sulci are unremarkable. No evidence for acute intracranial hemorrhage, abnormal extra-axial fluid collection or cerebral edema is present. The basilar cisterns are unremarkable. The bony calvarium is with hyperostosis frontalis. Marked mucosal thickening of the right maxillary sinus and extensive opacification of the right ethmoid, and to a lesser degree left ethmoid, air cells. Mild mucosal thickening of left maxillary sinus. Mild mucosal thickening of the right and to a greater extent left sphenoid sinus. IMPRESSION: 1. Negative for acute intracranial abnormality. 2. Extensive sinusitis. Dictated by: Dictated on workstation # [id number]
[2022-04-25] MEDS ORDERED: ACETAMINOPHEN 650 MG SUPP (TYLENOL) PR PRN (19:00)
[2022-04-25] MEDS ORDERED: ACETAMINOPHEN 325 MG TABLET PO PRN (19:00)
[2022-04-25] MEDS ORDERED: VANCOMYCIN 1250 MG/NS 250 ML IVPB IV NR ×2 (19:00)
[2022-04-25 19:26] VITALS: BP 104/69
[2022-04-25 19:45] VITALS: BP 90/59
[2022-04-25] MEDS ORDERED: RT-ALBUTEROL SULF 2.5 MG/3 ML PRE-MIX VIAL INH PRN (19:45)
[2022-04-25] MEDS: NS IV 1000 ML 1,000 ML IV SCH (19:51)
[2022-04-25] MEDS: inSUlin ASPART (NovoLOG) 1 UNIT/0.01 ML (CHARGE PER UNIT) SC SCH (21:07)
[2022-04-25] MEDS: RT-ALBUTEROL SULF 2.5 MG/3 ML PRE-MIX VIAL INH SCH (21:24)
[2022-04-26] VITALS: BP 98/83
[2022-04-26] MEDS: PIPERACILLIN SODIUM/TAZOBACTAM 4.5 GM in NS (IVPB) 100 ML IV SCH ×3 (00:04→14:00)
[2022-04-26 04:00] VITALS: BP 120/73
[2022-04-26 06:26] LABS: BASOPHILS % (AUTO) 0 % (0-10); EOSINOPHILS # (AUTO) 0.1 10^3/uL (0.0-0.3); EOSINOPHILS % (AUTO) 0 % (0-10); HEMATOCRIT 32 % (35-52); HEMOGLOBIN 10.5 g/dL (11.5-16.0); LYMPHOCYTES # (AUTO) 1.8 10^3/uL (1.0-4.0); LYMPHOCYTES % (AUTO) 14 % (12-44); MEAN CORPUSCULAR HEMOGLOBIN 27 pg (25-34); MEAN CORPUSCULAR HGB CONC 33 g/dL (32-36); MEAN CORPUSCULAR VOLUME 84 fL (80-99); MEAN PLATELET VOLUME 9.7 fL (9.0-12.2); MONOCYTES # (AUTO) 0.8 10^3/uL (0.0-1.0); MONOCYTES % (AUTO) 6 % (0-12); NEUTROPHILS # (AUTO) 9.9 10^3/uL (1.8-7.8); NEUTROPHILS % (AUTO) 79 % (42-75); PLATELET COUNT 333 10^3/uL (130-400); WHITE BLOOD COUNT 12.6 10^3/uL (4.3-11.0)
[2022-04-26] MEDS: inSUlin ASPART (NovoLOG) 1 UNIT/0.01 ML (CHARGE PER UNIT) SC SCH ×3 (06:28→16:17)
[2022-04-26 06:48] LABS: CREATININE SERUM 0.7 MG/DL (0.60-1.30); POTASSIUM 3.8 MMOL/L (3.6-5.0)
[2022-04-26] MEDS ORDERED: VANCOMYCIN 1 GM/NS 250 ML IVPB IV SCH ×2 (07:00)
[2022-04-26] MEDS: RT-ALBUTEROL SULF 2.5 MG/3 ML PRE-MIX VIAL INH SCH (07:21)
[2022-04-26] MEDS: NS IV 1000 ML 1,000 ML IV SCH ×3 (07:26→13:59)
[2022-04-26 07:56] VITALS: BP 116/69
--- NOTE | 2022-04-26 11:17 | History & Physical ---
History of Present Illness History of Present Illness Reason for visit/HPI Patient is a 56yo F with PMH of Hx DVT of the left leg, COPD, KRISTEN not using CPAP, type 2 DM, and methamphetamine use. Yesterday she was found in her home by her nephew laying on the floor and unresponsive. She was brought via EMS to the ER where she was tachycardic, had a fever, and was responsive to pain. Patient was diagnosed with a UTI, had elevated WBC, and was positive for methamphetam ine. The ER physician also noticed erythema and swelling of the left lower extremity. Patient was admitted for sepsis from cellulitis of LLE. Patient was sitting up in bed eating pudding at the start of the interview. Patient was irritable throughout the interview and kept asking when her breakfast was coming. When asked what the patient remembered about yesterday she replied that she couldn't remember anything. Patient was asked if she remembered waking up in the hospital and she said she didn't remember. When asked if she was taking her home medications she said she had not been because she doesn't like taking them. Patient reports that both of her legs hurt and she feels congested. Patient is unsure how long her legs have been hurting, when asked to clarify if they have been hurting for months, weeks, or years she said she did not know. She also is not aware of when they began to swell. Patient denies headaches, chest pain, shortness of breath, nausea, vomiting, diarrhea, abdominal pain, and dysuria. Date of Admission Apr 25, 2022 at 18:20 Date Seen by a Provider: Apr 26, 2022 Time Seen by a Provider: 10:30 I consulted on this patient on 04/26/22 11:11 Attending Physician [place] Admitting Physician Admitting Physician: Eugenia Navarro MD Attending Physician: Eugenia Navarro MD Consult Allergies and Home Medications Allergies Coded Allergies: levofloxacin (Verified Allergy, Unknown, 06/21/14) sulfamethoxazole (Unverified Allergy, Unknown, 06/21/14) trimethoprim (Unverified Allergy, Unknown, 06/21/14) Patient Home Medication List Home Medication List Reviewed: Yes Atorvastatin (Lipitor Tablet) 20 Mg Tablet, 20 MG PO DAILY, (Reported) Entered as Reported by: ANGEL SHERIDAN on 06/21/14 1246 Brexpiprazole (Rexulti) 2 Mg Tablet, (Reported) Entered as Reported by: KITTY VARMA on 01/25/16 1123 Glipizide (Glipizide Xl) 10 Mg Tab.sr.24h, 10 MG PO DAILY, (Reported) Entered as Reported by: RAJAN WRIGHT on 06/22/14 1049 Glipizide (Glipizide ER) 10 Mg Tab.er.24, 10 MG PO DAILY Prescribed by: ROLAND GONZALEZ on 11/11/16 1631 Haloperidol (Haloperidol) 5 Mg Tablet, (Reported) Entered as Reported by: ALEJO GLEASON on 10/07/16 2018 Metformin HCl (Metformin HCl) 500 Mg Tablet, 1,000 MG PO BID Prescribed by: ROLAND GONZALEZ on 11/11/16 1553 Metformin Hcl (Metformin 1000 Mg) 1,000 Mg Tablet, 1,000 MG PO BID, (Reported) Entered as Reported by: DORA KC on 05/19/11 1224 Tramadol HCl (Ultram) 50 Mg Tablet, 50 MG PO Q6H PRN for PAIN Prescribed by: ROYCE ARGUELLO on 06/21/16 0202 Venlafaxine HCl (Venlafaxine HCl ER) 75 Mg Cap.er.24h, 75 MG PO DAILY, (Reported) Entered as Reported by: MIKAYLA OCHOA on 06/04/15 1654 Venlafaxine HCl (Effexor Xr) 150 Mg Cap.er.24h, 150 MG PO DAILY Prescribed by: ROLAND GONZALEZ on 11/11/16 1553 Past Tlmpstg-Xxdfur-Zrtiju Hx Patient Social History Marrital Status: single Living Status: Lives in own home Employed/Student: unemployed Tobacco Use?: Yes Tobacco type used: Cigarettes Smoking Status: Current Everyday Smoker Use of E-Cig and/or Vaping dev: No Substance use?: Yes Substance type: Amphetamines, Methamphetamine Additional substance use comme: PT DENIES SUBSTANCE USE Alcohol Use?: No Immunizations Up To Date Date of Influenza Vaccine: Dec 09, 2013 Tetanus Booster (TDap): Unknown Hepatitis A: No Hepatitis B: No Date of Pneumonia Vaccine: Jun 26, 2007 Seasonal Allergies Seasonal Allergies: No Current Status Advance Directives: No Communicates: Verbally Primary Language: Barbadian Preferred Spoken Language: Barbadian Is interpretation needed?: No Implanted or Applied Medical D: None Past Medical History Surgeries: Gallbladder, Hysterectomy, Orthopedic, Renal, Tubal Ligation Asthma, Sleep Apnea, COPD Currently Using CPAP: No Currently Using BIPAP: No Chronic Edema/Swelling, Coronary Artery Disease, Deep Vein Thrombosis Neuropathy 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 Diabetes mellitus type II 2. Schizoaffective disorder 3. ADHD 4. Tobaccoism 5. Chronic venous insufficiency 6. History of recurring deep venous thrombosis Past surgical history 1. Cholecystectomy 2. Tubal ligation 3. Hysterectomy Family Medical History Diabetes mellitus 19 FATHER EMPHYSEMA 19 FATHER EPIEPSY G8 SISTER Hypertension 19 MOTHER STROKE 19 MOTHER No Family History of: Asthma Review of Systems Constitutional: No fever; weakness EENTM: nose congestion; No vision loss, No throat pain Respiratory: No cough, No short of breath Cardiovascular: No chest pain; edema (bilateral lower extremities) Gastrointestinal: No abdominal pain, No constipation, No diarrhea, No loss of appetite, No nausea, No vomiting Genitourinary: No decreased output, No dysuria Musculoskeletal: other (bilateral leg pain from the knee down) Skin: other (her left leg is red and swollen) Psychiatric/Neurological: Denies Headache; Weakness Physical Exam Vital Signs Vital Signs - First Documented 04/25/22 04/25/22 04/25/22 15:25 18:21 19:26 Temp 37.8 Pulse 103 Resp 22 B/P (MAP) 104/69 (81) Pulse Ox 98 O2 Delivery Room Air FiO2 21 Capillary Refill : Less Than 3 Seconds Height, Weight, BMI Height: 5'7.00" Weight: 190lbs. 3.2oz. [id number]; 20.89 BMI Method:Stated General Appearance: No Apparent Distress Eyes: Bilateral Eye Normal Inspection HEENT: Moist Mucous Membranes Neck: Full Range of Motion Respiratory: Chest Non Tender, Lungs Clear, Normal Breath Sounds, No Accessory Muscle Use, No Respiratory Distress Cardiovascular: Regular Rate, Rhythm, No Murmur Gastrointestinal: Non Tender, Soft Extremity: Swelling (2+ pitting edema in left leg below the knee with erythema and dry skin, skin is warm to touch, 1+ pitting edema in right leg with dry skin and without erythema) Neurologic/Psychiatric: Alert, Oriented x3 Skin: Warm/Dry Assessment/Plan Assessment and Plan Lower extremity edema - cellulitis vs DVT vs chronic PVD - most likely PVD that has not been cared for at home and has led to cellulitis - due to the patient having a history of DVT in the left leg, venous US w/ doppler has been ordered - zosyn and vancomycin have been started AMS - head CT did not show any acute changes besides sinusitis - most likely caused by a combination of cellulitis with sepsis and current methamphetamine use Non-insulin dependent diabetes mellitus type 2 - not well controlled and has not been taking metformin - sliding scale aspart ordered - AccuCheck ordered - patient placed on diabetic diet Elevated PT and APTT - patient had denies being on blood thinners - patient has had elevated coags several times previously since 2012 UTI - patient is on zosyn and vancomycin - urine culture pending COPD - albuterol sulfate 2.5mg Q4hrs ordered Methamphetamine use Admission Diagnosis Admission Status: Inpatient Order (span 2 midnights) Reason for Inpatient Admission: IV Abx for cellulitis SAIGE AVILA Apr 26, 2022 11:17
[2022-04-26 11:31] VITALS: BP 111/66
[2022-04-26] MEDS ORDERED: HYDROcodone/APAP 5 MG/325 MG (LORTAB) TAB PO PRN (12:30)
[2022-04-26] MEDS ORDERED: PALI234D IM (12:32)
[2022-04-26 15:59] VITALS: BP 111/76
== END 2022-04-26 18:18 | disposition left against medical advice (07) ==
LOC: EDUNIT# 15:25 → ER 15:26 → UNDOADMOB 18:20 → 4TH 18:20 → UNDOADMOB 18:25 → 4TH 18:25 → UNDODISOB 04-26 18:18
PROVIDERS: ADMIT Family Medicine; ATTEND Family Medicine
DX: R41.82 Altered mental status, unspecified (principal); L03.032 Cellulitis of left toe; E11.628 Type 2 diabetes mellitus with other skin complications; J44.9 Chronic obstructive pulmonary disease, unspecified; A41.9 Sepsis, unspecified organism; F17.210 Nicotine dependence, cigarettes, uncomplicated; R60.0 Localized edema; N39.0 Urinary tract infection, site not specified; R79.1 Abnormal coagulation profile; F15.90 Other stimulant use, unspecified, uncomplicated; Z79.84 Long term (current) use of oral hypoglycemic drugs; Z79.899 Other long term (current) drug therapy; Z28.310 Unvaccinated for COVID-19
CPT/HCPCS: 36415; 51702; 70450; 71045; 80048; 80053; 80306; 80320; 81000; 82947; 83605; 85007; 85025; 85027; 85610; 85730; 87040; 87088; 87636; 94640; 94760; 96375; 96376; G0378

== ENCOUNTER 2022-05-10 15:30 | Inpatient (IN) | payer MEDICARE, MEDICAID ==
[~2022-05-10] VITALS: Ht 167 cm; Wt 68.3 kg
[2022-05-10] VITALS (10 sets, daily range): BP systolic 101–127; BP diastolic 64–77
[~2022-05-10 15:30] MED LIST changes: +PALI234D IM
[2022-05-10 16:00] LABS: BASOPHILS # (AUTO) 0.1 10^3/uL (0.0-0.1); BASOPHILS % (AUTO) 1 % (0-10); EOSINOPHILS # (AUTO) 0.1 10^3/uL (0.0-0.3); EOSINOPHILS % (AUTO) 1 % (0-10); HEMATOCRIT 39 % (35-52); HEMOGLOBIN 12.8 g/dL (11.5-16.0); LYMPHOCYTES # (AUTO) 2.4 10^3/uL (1.0-4.0); LYMPHOCYTES % (AUTO) 21 % (12-44); MEAN CORPUSCULAR HEMOGLOBIN 27 pg (25-34); MEAN CORPUSCULAR HGB CONC 33 g/dL (32-36); MEAN CORPUSCULAR VOLUME 82 fL (80-99); MEAN PLATELET VOLUME 9.8 fL (9.0-12.2); MONOCYTES # (AUTO) 0.6 10^3/uL (0.0-1.0); MONOCYTES % (AUTO) 5 % (0-12); NEUTROPHILS # (AUTO) 8.5 10^3/uL (1.8-7.8); NEUTROPHILS % (AUTO) 73 % (42-75); PLATELET COUNT 392 10^3/uL (130-400); WHITE BLOOD COUNT 11.7 10^3/uL (4.3-11.0)
[2022-05-10 16:07] LABS: ALBUMIN 3.4 GM/DL (3.2-4.5)
[2022-05-10 16:08] LABS: POTASSIUM 4.6 MMOL/L (3.6-5.0)
[2022-05-10 16:09] LABS: CALCIUM 9.5 MG/DL (8.5-10.1)
--- NOTE | 2022-05-10 16:11 | Diagnostic Imaging Report ---
HISTORY: Left foot ulcer. COMPARISON: None. TECHNIQUE: 2 views of the left foot. FINDINGS: There is an old posttraumatic deformity of the proximal 5th metatarsal shaft. No acute fracture is seen in the left foot. There is a type 1 accessory navicular. There are mild degenerative changes in the midfoot. There are small plantar and posterior calcaneal enthesophytes. There does appear to be a small amount of soft tissue gas plantar to the metatarsal heads. There is subtle osteopenia with questionable cortical indistinction at the medial aspect of the 4th metatarsal head. There is moderate soft tissue swelling about the left foot. IMPRESSION: 1. Soft tissue ulceration at the plantar left foot. Findings questionable for osteomyelitis of the 4th metatarsal head. MRI could be considered to further evaluate. 2. Old healed/healing fracture of the left 5th metatarsal. 3. Soft tissue swelling in the left foot. Dictated by: Dictated on workstation # [id number]
[2022-05-10 16:12] LABS: BILIRUBIN,TOTAL 0.2 MG/DL (0.1-1.0)
[2022-05-10 16:14] LABS: CREATININE SERUM 1.02 MG/DL (0.60-1.30)
[2022-05-10] MEDS ORDERED: NS IV 1000 ML 1,000 ML IV SCH ×2 (16:15→19:00)
[2022-05-10 16:23] LABS: BILIRUBIN,URINE NEGATIVE (NEGATIVE); CLARITY,URINE CLEAR; COLOR,URINE YELLOW; GLUCOSE, URINE (UA) 3+ (NEGATIVE); KETONES,URINE NEGATIVE (NEGATIVE); LEUKOCYTE ESTERASE ,URINE NEGATIVE (NEGATIVE); NITRITE,URINE NEGATIVE (NEGATIVE); PH,URINE 6.5 (5-9); PROTEIN,URINE NEGATIVE (NEGATIVE)
[2022-05-10 16:35] LABS: BACTERIA,URINE TRACE /HPF; RBC,URINE RARE /HPF; SQUAMOUS EPITHELIAL CELL,UR 0-2 /HPF
--- NOTE | 2022-05-10 16:40 | ED General ---
General Chief Complaint: Lower Extremity Stated Complaint: WOUND Nursing Triage Note: PT ARRIVED PER EMS, PT CO OF L LOWER LEG PAIN AND SWELLING. PT HAS OPEN AREA ON BOTTOM OF L FOOT. PT STATES FELL THRU BATHROOM FLOOR. PT IS VERY CANTACAROUS TO STAFF. PT IS VERY UNKEMPT. PT HAS SORE ON FACE. Source of Information: Patient, EMS, Old Records Exam Limitations: No Limitations History of Present Illness Date Seen by Provider: May 10, 2022 Time Seen by Provider: 15:40 Initial Comments This 56-year-old woman presents to the emergency room via EMS with complaints of left lower extremity swelling, pain, erythema, and plantar ulcer. She has diabetes and has a caregiver at home who activated EMS because of these symptoms. Patient denies fever but does report pain. She seems rather somnolent with decreased alertness. She is agitated when asked questions. She is very unkept with soiled feet and clothing and matted hair. She was recently admitted to the hospital for cellulitis, altered mental status, and lower extremity edema but left AGAINST MEDICAL ADVICE. She tested positive for methamphetamine during that admission. Fingerstick blood sugars 593. She has an insulin treated diabetic. Allergies and Home Medications Allergies Coded Allergies: levofloxacin (Verified Allergy, Unknown, 06/21/14) sulfamethoxazole (Unverified Allergy, Unknown, 06/21/14) trimethoprim (Unverified Allergy, Unknown, 06/21/14) Patient Home Medication List Home Medication List Reviewed: Yes Paliperidone Palmitate (Invega Sustenna) 234 Mg/1.5 Ml Syringe, 234 MG IM MONTHLY, (Reported) Entered as Reported by: HEATHER GOTTI on 04/26/22 1232 Review of Systems Review of Systems Constitutional: see HPI, weakness EENTM: no symptoms reported Respiratory: no symptoms reported Cardiovascular: no symptoms reported Gastrointestinal: no symptoms reported Genitourinary: no symptoms reported : No Musculoskeletal: see HPI Skin: see HPI Psychiatric/Neurological: See HPI Hematologic/Lymphatic: No Symptoms Reported Immunological/Allergic: no symptoms reported Past Chgmrpe-Kybjzf-Ihjkti Hx Patient Social History Tobacco Use?: No Substance use?: No Alcohol Use?: Yes Pt feels they are or have been: No Immunizations Up To Date Tetanus Booster (TDap): Unknown Seasonal Allergies Seasonal Allergies: No Past Medical History Surgery/Hospitalization HX: Partial Hysterectomy/Spine Surgery/Cholecystectomy Surgeries: Yes (STENT IN R URETER, BACK SURGERY, SUSANA FILTER) Gallbladder, Hysterectomy, Orthopedic, Renal, Tubal Ligation Respiratory: Yes (NO CPAP) Asthma, Sleep Apnea, COPD Currently Using CPAP: No Currently Using BIPAP: No Cardiac: Yes (DVT LEFT LEG; CHRONIC VENOUS INSUFFICIENCY) Chronic Edema/Swelling, Coronary Artery Disease, Deep Vein Thrombosis Neurological: Yes Neuropathy 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 Disorders: No 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 Sexually Transmitted Disease: No HIV/AIDS: No Genitourinary: Yes Kidney Stones Gastrointestinal: Yes Gastroesophageal Reflux Musculoskeletal: Yes (CHRONIC LEG PAIN--L>R) Arthritis, Chronic Back Pain Endocrine: Yes Diabetes, Insulin dep HEENT: No Loss of Vision: Denies Hearing Impairment: Denies Cancer: No Psychosocial: Yes Anxiety, Suicide Attempts, Bipolar, Depression Integumentary: Yes (VENOUS STASIS CHANGES TO LEGS-LEFT > RIGHT) Blood Disorders: Yes (HX OF BLOOD CLOTS) Adverse Reaction/Blood Tranf: No Family Medical History Diabetes mellitus 19 FATHER EMPHYSEMA 19 FATHER EPIEPSY G8 SISTER Hypertension 19 MOTHER STROKE 19 MOTHER No Family History of: Asthma Physical Exam Vital Signs Vital Signs - First Documented 05/10/22 05/10/22 08:30 15:30 Temp 36.4 Pulse 85 Resp 15 B/P (MAP) 105/64 (78) Pulse Ox 99 O2 Delivery Room Air Capillary Refill : Height, Weight, BMI Height: 5'7.00" Weight: 190lbs. 3.2oz. 86.047826ng; 22.00 BMI Method:Stated General Appearance: No Apparent Distress, WD/WN, Thin, Other (Disheveled and unkept with soiled skin and clothing) HEENT: PERRL/EOMI, Normal ENT Inspection Neck: Normal Inspection; No JVD Respiratory: Lungs Clear, Normal Breath Sounds, No Accessory Muscle Use Cardiovascular: Regular Rate, Rhythm, No Murmur, Other (Edema of left lower extremity) Gastrointestinal: Non Tender, Soft; No Distended Extremity: Other (Left lower extremity is markedly edematous from the foot up to the knee with warm erythema. Patient was wearing sweatpants under jeans with the elastic embedded deeply into the edema at mid calf. Distal pulses and capillary refill are normal. There is a dime sized ulceration) Neurologic/Psychiatric: Alert, No Motor/Sensory Deficits Skin: Normal Color, Warm/Dry, Erythema (Left lower leg, plantar foot ulcer) Focused Exam Lactate Level 05/10/22 15:40: Lactic Acid Level 3.29*H 05/10/22 17:35: Lactic Acid Level 1.39 Lactic Acid Level Laboratory Tests Test 05/10/22 15:40 05/10/22 17:35 Lactic Acid Level 3.29 MMOL/L (0.50-2.00) *H 1.39 MMOL/L (0.50-2.00) Progress/Results/Core Measures Suspected Sepsis SIRS Temperature: Pulse: 96 Respiratory Rate: 18 Laboratory Tests 05/10/22 15:40: White Blood Count 11.7H Blood Pressure 112 /77 Mean: 89 05/10/22 15:40: Lactic Acid Level 3.29*H 05/10/22 17:35: Lactic Acid Level 1.39 Laboratory Tests 05/10/22 15:40: Creatinine 1.02, INR Comment 1.0, Platelet Count 392, Total Bilirubin 0.2 Results/Orders Lab Results Laboratory Tests Test 05/10/22 15:40 05/10/22 16:06 05/10/22 16:12 05/10/22 17:35 Range/Units White Blood Count 11.7 H 4.3-11.0 10^3/uL Red Blood Count 4.74 3.80-5.11 10^6/uL Hemoglobin 12.8 11.5-16.0 g/dL Hematocrit 39 35-52 % Mean Corpuscular Volume 82 80-99 fL Mean Corpuscular Hemoglobin 27 25-34 pg Mean Corpuscular Hemoglobin Concent 33 32-36 g/dL Red Cell Distribution Width 14.8 H 10.0-14.5 % Platelet Count 392 130-400 10^3/uL Mean Platelet Volume 9.8 9.0-12.2 fL Immature Granulocyte % (Auto) 1 % Neutrophils (%) (Auto) 73 42-75 % Lymphocytes (%) (Auto) 21 12-44 % Monocytes (%) (Auto) 5 0-12 % Eosinophils (%) (Auto) 1 0-10 % Basophils (%) (Auto) 1 0-10 % Neutrophils # (Auto) 8.5 H 1.8-7.8 10^3/uL Lymphocytes # (Auto) 2.4 1.0-4.0 10^3/uL Monocytes # (Auto) 0.6 0.0-1.0 10^3/uL Eosinophils # (Auto) 0.1 0.0-0.3 10^3/uL Basophils # (Auto) 0.1 0.0-0.1 10^3/uL Immature Granulocyte # (Auto) 0.1 0.0-0.1 10^3/uL Prothrombin Time 13.4 12.2-14.7 SEC INR Comment 1.0 0.8-1.4 Activated Partial Thromboplast Time 32 24-35 SEC D-Dimer 1.39 H 0.00-0.49 UG/ML Sodium Level 126 L 135-145 MMOL/L Potassium Level 4.6 3.6-5.0 MMOL/L Chloride Level 90 L 98-107 MMOL/L Carbon Dioxide Level 25 21-32 MMOL/L Anion Gap 11 5-14 MMOL/L Blood Urea Nitrogen 19 H 7-18 MG/DL Creatinine 1.02 0.60-1.30 MG/DL Estimat Glomerular Filtration Rate 64 BUN/Creatinine Ratio 19 Glucose Level 750 *H 70-105 MG/DL Lactic Acid Level 3.29 *H 1.39 0.50-2.00 MMOL/L Calcium Level 9.5 8.5-10.1 MG/DL Corrected Calcium 10.0 8.5-10.1 MG/DL Total Bilirubin 0.2 0.1-1.0 MG/DL Aspartate Amino Transf (AST/SGOT) 9 5-34 U/L Alanine Aminotransferase (ALT/SGPT) 15 0-55 U/L Alkaline Phosphatase 127 40-136 U/L C-Reactive Protein High Sensitivity 3.99 H 0.00-0.50 MG/DL Total Protein 9.0 H 6.4-8.2 GM/DL Albumin 3.4 3.2-4.5 GM/DL Serum Alcohol < 10 <10 MG/DL Glucometer 593 *H 70-110 MG/DL Urine Color YELLOW Urine Clarity CLEAR Urine pH 6.5 5-9 Urine Specific [place] <=1.005 1.016-1.022 Urine Protein NEGATIVE NEGATIVE Urine Glucose (UA) 3+ H NEGATIVE Urine Ketones NEGATIVE NEGATIVE Urine Nitrite NEGATIVE NEGATIVE Urine Bilirubin NEGATIVE NEGATIVE Urine Urobilinogen 0.2 < = 1.0 MG/DL Urine Leukocyte Esterase NEGATIVE NEGATIVE Urine RBC (Auto) NEGATIVE NEGATIVE Urine RBC RARE /HPF Urine WBC NONE /HPF Urine Squamous Epithelial Cells 0-2 /HPF Urine Crystals NONE /LPF Urine Bacteria TRACE /HPF Urine Casts NONE /LPF Urine Mucus NEGATIVE /LPF Urine Culture Indicated NO Urine Opiates Screen NEGATIVE NEGATIVE Urine Oxycodone Screen NEGATIVE NEGATIVE Urine Methadone Screen NEGATIVE NEGATIVE Urine Propoxyphene Screen NEGATIVE NEGATIVE Urine Barbiturates Screen NEGATIVE NEGATIVE Ur Tricyclic Antidepressants Screen NEGATIVE NEGATIVE Urine Phencyclidine Screen NEGATIVE NEGATIVE Urine Amphetamines Screen POSITIVE H NEGATIVE Urine Methamphetamines Screen POSITIVE H NEGATIVE Urine Benzodiazepines Screen NEGATIVE NEGATIVE Urine Cocaine Screen NEGATIVE NEGATIVE Urine Cannabinoids Screen NEGATIVE NEGATIVE Test 05/10/22 17:49 Range/Units Glucometer 469 *H 70-110 MG/DL My Orders Orders - ROYCE KNUTSON MD Cbc With Automated Diff (05/10/22 15:51) Comprehensive Metabolic Panel (05/10/22 15:51) Hs C Reactive Protein (05/10/22 15:51) Ua Culture If Indicated (05/10/22 15:51) Foot, Left, 2 View (05/10/22 15:51) Fibrin Degradation Products (05/10/22 15:51) Accucheck Stat ONCE (05/10/22 15:51) Ed Iv/Invasive Line Start (05/10/22 15:51) Ns Iv 1000 Ml (Sodium Chloride 0.9%) (05/10/22 16:15) Accucheck Stat ONCE (05/10/22 16:30) Alcohol (05/10/22 16:32) Drug Screen Stat (Urine) (05/10/22 16:32) Us Venous Lower Ext Lt (05/10/22 16:40) Insulin (Regular) Human (Novolin R (Per (05/10/22 16:41) Blood Culture (05/10/22 16:50) Protime With Inr (05/10/22 16:50) Partial Thromboplastin Time (05/10/22 16:50) Chest 1 View, Ap/Pa Only (05/10/22 16:50) Vital Signs Adult Sepsis Patie Q15M (05/10/22 16:50) O2 (05/10/22 16:50) Remove Rings In Anticipation O (05/10/22 16:50) Lactic Acid Analyzer (05/10/22 16:50) Piperacillin Sodium/Tazobactam (Zosyn Vi (05/10/22 17:00) Vancomycin Injection (Vancomycin Injecti (05/10/22 19:00) Ed Admission (Communication) (05/10/22 18:05) Medications Given in ED Current Medications Medications Dose Ordered Sig/Phuc Route Start Time Stop Time Status Last Admin Dose Admin Piperacillin Sod/ Tazobactam Sod 4.5 gm/Sodium Chloride 100 ml @ 200 mls/hr ONCE ONCE IV 05/10/22 17:00 05/10/22 17:29 DC 05/10/22 17:42 200 MLS/HR Vital Signs/I&O 05/10/22 05/10/22 08:30 15:30 Temp 36.4 Pulse 85 96 Resp 15 18 B/P (MAP) 105/64 (78) 112/77 (89) Pulse Ox 99 98 O2 Delivery Room Air Capillary Refill : Blood Pressure Mean: 89 Point of Care Testing Finger Stick Blood Glucose: 593 Blood Glucose Action Taken: REPORTED TO DR KNUTSON Progress Note : Progress Note Patient was interviewed and examined shortly after arrival. Report have been received from EMS and nursing staff. Chart from prior visit was reviewed. B asic labs were obtained and she was found to be severely hyperglycemic with a blood sugar of 750. A liter of IV normal saline was infused and regular insulin 5 units subcutaneously was administered. This resulted in satisfactory trend of blood sugar downward. Ultrasound of the left lower extremity revealed no DVT. Symptoms are presumed to be related to cellulitis and possibly osteomyelitis. X-ray of the left foot was reviewed by me and osteomyelitis of the fourth metatarsal was suspected. Radiologist's report also suggested osteomyelitis and MRI was recommended. This was discussed with Dr. Shirley who agreed. Blood cultures and lactic acid were obtained, and antibiotic therapy was started with Zosyn and vancomycin. Patient was admitted for treatment of cellulitis, hyperglycemia, and possible osteomyelitis. All labs were reviewed in their entirety. Positive methamphetamine drug screen was noted. Case was discussed with Dr. Power, admitting hospitalist. She plans to admit the patient to ICU on a non-DKA insulin drip to manage blood sugars through the night. Diagnostic Imaging Diagonstic Imaging: Xray Plain Films/CT/US/NM/MRI: other (Left foot) Comments Left foot x-ray viewed by me. There was a lucency over the distal head of the fourth metatarsal suspicious for osteomyelitis associated with plantar ulcer near the same location. No fractures were appreciated. Radiologist's report was also reviewed as below: NAME: KATARZYNA WEAVER [facility] REC#: [id number] PT STATUS: REG ER : 1965 PHYSICIAN: ROYCE KNUTSON MD ADMIT DATE: 05/10/22/ER Signed Date of Exam:05/10/22 FOOT, LEFT, 2 VIEW HISTORY: Left foot ulcer. COMPARISON: None. TECHNIQUE: 2 views of the left foot. FINDINGS: There is an old posttraumatic deformity of the proximal 5th metatarsal shaft. No acute fracture is seen in the left foot. There is a type 1 accessory navicular. There are mild degenerative changes in the midfoot. There are small plantar and posterior calcaneal enthesophytes. There does appear to be a small amount of soft tissue gas plantar to the metatarsal heads. There is subtle osteopenia with questionable cortical indistinction at the medial aspect of the 4th metatarsal head. There is moderate soft tissue swelling about the left foot. IMPRESSION: 1. Soft tissue ulceration at the plantar left foot. Findings questionable for osteomyelitis of the 4th metatarsal head. MRI could be considered to further evaluate. 2. Old healed/healing fracture of the left 5th metatarsal. 3. Soft tissue swelling in the left foot. Dictated by: Dictated on workstation # [id number] Dict: 05/10/22 1606 Trans: 05/10/22 1642 [facility] [id number] Interpreted by: ADELINA DAVISON MD Electronically signed by: ADELINA DAVISON MD 05/10/22 1642 Diagonstic Imaging: Ultrasound Plain Films/CT/US/NM/MRI: leg Comments Venous Doppler of the left lower extremity was discussed with the sterile technician. No DVT was reported. Diagonstic Imaging: Xray Plain Films/CT/US/NM/MRI: chest Comments NAME: KATARZYNA WEAVER [facility] REC#: [id number] PT STATUS: REG ER : 1965 PHYSICIAN: ROYCE KNUTSON MD ADMIT DATE: 05/10/22/ER Draft Date of Exam:05/10/22 CHEST 1 VIEW, AP/PA ONLY EXAM: Chest 1 view, AP/PA only INDICATION: Sepsis. COMPARISON: 04/25/2022. FINDINGS: Normal heart size and central pulmonary vascularity. Prominence of the interstitium has modestly improved compared to the prior. No new focal pulmonary opacity. No pleural effusion or pneumothorax. No acute osseous finding. IMPRESSION: Prominence of the interstitium has modestly improved compared to 04/25/2022. No new focal pulmonary opacity. Dictated on workstation # [id number] Dict: 05/10/22 1733 Trans: 05/10/22 1738 E [id number] Interpreted by: MAYRA MARTINO MD Departure Communication (Admissions) Time/Spoke to Admitting Phy: 17:55 Dr. Power Time/Spoke to Consulting Phy: 05:[address] Shirley who will see the patient tomorrow in consultation. He agrees with pursuing MRI as recommended by radiologist. Impression Primary Impression: Cellulitis of left lower extremity Additional Impressions: Osteomyelitis of left foot Qualified Codes: M86.9 - Osteomyelitis, unspecified Hyperglycemia Altered mental status Qualified Codes: R41.82 - Altered mental status, unspecified Methamphetamine abuse Diabetic foot ulcer Qualified Codes: E13.621 - Other specified diabetes mellitus with foot ulcer; L97.522 - Non-pressure chronic ulcer of other part of left foot with fat layer exposed Disposition: ADMITTED INPATIENT Condition: Improved Admissions Decision to Admit Reason: Admit from ER (General) Decision to Admit/Date: May 10, 2022 Time/Decision to Admit Time: 17:55 Departure-Patient Inst. Referrals: [facility] (PCP/Family) Primary Care Physician ROYCE KNUTSON MD May 10, 2022 16:40
[2022-05-10] MEDS ORDERED: inSUlin (REGULAR) HUMAN 1 UNIT/0.01 ML (CHARGE PER UNIT) SC STA (16:41)
[2022-05-10 16:53] LABS: AMPHETAMINE SCREEN, URINE POSITIVE (NEGATIVE); BARBITURATE SCREEN URINE NEGATIVE (NEGATIVE); BENZODIAZEPINES SCREEN URINE NEGATIVE (NEGATIVE); CANNABINOID SCREEN, URINE NEGATIVE (NEGATIVE); COCAINE SCREEN URINE NEGATIVE (NEGATIVE); METHADONE STAT NEGATIVE (NEGATIVE); OPIATE SCREEN URINE NEGATIVE (NEGATIVE); OXYCODONE STAT NEGATIVE (NEGATIVE); PROPOXYPHENE STAT NEGATIVE (NEGATIVE); TRICYCLIC ANTIDEPRESSANTS SCRE NEGATIVE (NEGATIVE)
[2022-05-10] MEDS ORDERED: PIPERACILLIN SODIUM/TAZOBACTAM 4.5 GM in NS (IVPB) 100 ML IV ONE (17:00)
[2022-05-10 17:06] LABS: PROTHROMBIN TIME PATIENT 13.4 SEC (12.2-14.7)
--- NOTE | 2022-05-10 17:38 | Diagnostic Imaging Report ---
EXAM: Chest 1 view, AP/PA only INDICATION: Sepsis. COMPARISON: 04/25/2022. FINDINGS: Normal heart size and central pulmonary vascularity. Prominence of the interstitium has modestly improved compared to the prior. No new focal pulmonary opacity. No pleural effusion or pneumothorax. No acute osseous finding. IMPRESSION: Prominence of the interstitium has modestly improved compared to 04/25/2022. No new focal pulmonary opacity. Dictated by: Dictated on workstation # [id number]
--- NOTE | 2022-05-10 17:41 | Diagnostic Imaging Report ---
EXAM: US venous lower ext lt INDICATION: Edema and erythema in the left lower extremity. COMPARISON: None. TECHNIQUE: Duplex, grayscale and color-flow imaging of the left lower extremity venous system was performed. FINDINGS: The left common femoral vein, superficial femoral vein, profunda femoris and popliteal veins are normal. These vessels show normal compressibility, color flow and Doppler augmentation. The deep calf veins demonstrate no distinct intraluminal thrombus, where seen. IMPRESSION: No evidence of deep venous thrombosis in the left lower extremity. Dictated by: Dictated on workstation # [id number]
[2022-05-10] MEDS ORDERED: VANCOMYCIN INJECTION 750 MG in NS (IVPB) 100 ML IV ONE (18:00)
[2022-05-10] MEDS ORDERED: NS IV 500 ML 500 ML IV PRN ×2 (18:45→19:00)
[2022-05-10] MEDS ORDERED: ZIPRASIDONE 20 MG INJ (GEODON) VIAL IM PRN (19:00)
[2022-05-10] MEDS ORDERED: MILK OF MAGNESIA 400 MG/5 ML 30 ML UDC PO PRN (19:00)
[2022-05-10] MEDS ORDERED: ANTACID SUSP 30 ML UDC (MYLANTA) PO PRN (19:00)
[2022-05-10] MEDS ORDERED: 1/2 NS IV SOLUTION 1,000 ML IV SCH (19:00)
[2022-05-10] MEDS ORDERED: diphenhydrAMINE 50 MG/ML INJ (BENADRYL) IVP PRN (19:00)
[2022-05-10] MEDS ORDERED: ONDANSETRON 4 MG (ZOFRAN) ORAL DISSOLVE TAB PO PRN (19:00)
[2022-05-10] MEDS ORDERED: VANCOMYCIN INJECTION 0.1 MG in NS (IVPB) 250 ML IV SCH (19:00)
[2022-05-10] MEDS ORDERED: VANCOMYCIN INJECTION 500 MG in NS (IVPB) 100 ML IV ONE (19:00)
[2022-05-10] MEDS ORDERED: POTASSIUM CL 10MEQ/50ML IVPB 50 ML IV SCH (19:00)
[2022-05-10] MEDS ORDERED: polyethylene glycoL POWDER 17 GM (MIRALAX) PACK PO PRN (19:00)
[2022-05-10] MEDS ORDERED: HYDROmorphone 2 MG/ML VIAL (DILAUDID) IV PRN (19:00)
[2022-05-10] MEDS ORDERED: WATER (STERILE) FOR INJ 10 ML BTL INJ SCH (19:00)
[2022-05-10] MEDS ORDERED: BISACODYL 10 MG SUPP (DULCOLAX) PR PRN (19:00)
[2022-05-10] MEDS ORDERED: ONDANSETRON 4 MG/2 ML (SDV) Z0FRAN IV PRN (19:00)
[2022-05-10] MEDS ORDERED: LACTULOSE SYRUP 10GM/15ML (ENULOSE) 30ML UDC PO PRN (19:00)
[2022-05-10] MEDS ORDERED: ACETAMINOPHEN 325 MG TABLET PO PRN (19:00)
[2022-05-10] MEDS ORDERED: diphenhydrAMINE 25 MG TAB (BENADRYL) PO PRN (19:00)
[2022-05-10] MEDS ORDERED: CALCIUM CARBONATE 500 MG (TUMS) TAB.CHEW PO PRN (19:00)
[2022-05-10] MEDS ORDERED: MELATONIN 3 MG TABLET PO PRN (19:00)
[2022-05-10] MEDS ORDERED: D5 1/2 NS 1000 ML IV SOLUTION 1,000 ML IV SCH (19:00)
[2022-05-10] MEDS ORDERED: VANCOMYCIN 1250 MG/NS 250 ML PREMIX IV NR (19:15)
[2022-05-10] MEDS ORDERED: RT-ALBUTEROL SULF 2.5 MG/3 ML PRE-MIX VIAL INH PRN (19:45)
[2022-05-10] MEDS: POTASSIUM CL 10MEQ/50ML IVPB 50 ML IV SCH ×2 (20:16→21:43)
[2022-05-10] MEDS: ENOXAPARIN 40 MG/0.4 ML (LOVENOX) SYR SC SCH (20:22)
[2022-05-10 21:07] LABS: CALCIUM 7.5 MG/DL (8.5-10.1); CREATININE SERUM 0.65 MG/DL (0.60-1.30); POTASSIUM 3.2 MMOL/L (3.6-5.0)
[2022-05-10] MEDS: DOCUSATE SODIUM 100 MG (COLACE) CAP PO SCH (21:35)
[2022-05-10] MEDS: SENNOSIDES 8.6 MG (SENOKOT) TAB PO SCH (21:37)
[2022-05-10] MEDS: RT-ALBUTEROL SULF 2.5 MG/3 ML PRE-MIX VIAL INH SCH (21:50)
[2022-05-10] MEDS: D5 LR IV SOLUTION 1,000 ML IV SCH (23:03)
[2022-05-10 23:15] LABS: CALCIUM 8.2 MG/DL (8.5-10.1); CREATININE SERUM 0.6 MG/DL (0.60-1.30); POTASSIUM 3.6 MMOL/L (3.6-5.0)
[2022-05-10] MEDS: PIPERACILLIN SODIUM/TAZOBACTAM 4.5 GM in NS (IVPB) 100 ML IV SCH (23:25)
[2022-05-11] MEDS: POTASSIUM CL 10MEQ/50ML IVPB 50 ML IV SCH (00:02)
[2022-05-11 05:22] LABS: BASOPHILS # (AUTO) 0.1 10^3/uL (0.0-0.1); BASOPHILS % (AUTO) 1 % (0-10); EOSINOPHILS # (AUTO) 0.1 10^3/uL (0.0-0.3); EOSINOPHILS % (AUTO) 1 % (0-10); HEMATOCRIT 33 % (35-52); HEMOGLOBIN 11.2 g/dL (11.5-16.0); LYMPHOCYTES # (AUTO) 2.2 10^3/uL (1.0-4.0); LYMPHOCYTES % (AUTO) 23 % (12-44); MEAN CORPUSCULAR HEMOGLOBIN 28 pg (25-34); MEAN CORPUSCULAR HGB CONC 34 g/dL (32-36); MEAN CORPUSCULAR VOLUME 81 fL (80-99); MEAN PLATELET VOLUME 9.4 fL (9.0-12.2); MONOCYTES # (AUTO) 0.5 10^3/uL (0.0-1.0); MONOCYTES % (AUTO) 5 % (0-12); NEUTROPHILS # (AUTO) 6.6 10^3/uL (1.8-7.8); NEUTROPHILS % (AUTO) 70 % (42-75); PLATELET COUNT 319 10^3/uL (130-400); WHITE BLOOD COUNT 9.5 10^3/uL (4.3-11.0)
[2022-05-11 05:35] LABS: ALBUMIN 2.5 GM/DL (3.2-4.5); POTASSIUM 4.5 MMOL/L (3.6-5.0)
[2022-05-11 05:36] LABS: CALCIUM 7.9 MG/DL (8.5-10.1)
[2022-05-11 05:37] LABS: TOTAL PROTEIN 6.7 GM/DL (6.4-8.2)
[2022-05-11 05:39] LABS: BILIRUBIN,TOTAL 0.3 MG/DL (0.1-1.0)
[2022-05-11 05:41] LABS: CREATININE SERUM 0.6 MG/DL (0.60-1.30)
[2022-05-11 05:45] LABS: MAGNESIUM 1.6 MG/DL (1.6-2.4)
[2022-05-11] MEDS ORDERED: KCL 20 MEQ TAB (K-DUR) PO SCH ×2 (06:00)
[2022-05-11] MEDS ORDERED: MAGNESIUM 1 GM/100 ML IVPB 100 ML IV SCH (06:00)
[2022-05-11] MEDS ORDERED: POTASSIUM CL 10MEQ/50ML IVPB 50 ML IV SCH ×2 (06:00)
[2022-05-11] MEDS ORDERED: POTASSIUM BICARB 20 MEQ (EFFER-K) TABLET PO SCH (06:00)
[2022-05-11] MEDS: MAGNESIUM 1 GM/100 ML IVPB 100 ML IV SCH ×3 (06:13→08:13)
--- NOTE | 2022-05-11 06:15 | Diagnostic Imaging Report ---
INDICATION: Diabetic ketoacidosis. Comparison is made with prior examination of 05/10/2022. FINDINGS: The heart size, mediastinal configuration, and pulmonary vascularity are within normal limits. There is no pleural effusion, pneumothorax, or pneumonia. The osseous structures are unremarkable. IMPRESSION: No acute cardiopulmonary abnormality. Dictated by: Dictated on workstation # [id number]
[2022-05-11] MEDS: VANCOMYCIN 750 MG/NS 250 ML IVPB IV SCH ×4 (06:35→19:07)
[2022-05-11] MEDS: D5 LR IV SOLUTION 1,000 ML IV SCH (06:37)
[2022-05-11] MEDS: inSUlin ASPART (NovoLOG) 1 UNIT/0.01 ML (CHARGE PER UNIT) SC SCH ×4 (06:38→19:07)
[2022-05-11] MEDS: RT-ALBUTEROL SULF 2.5 MG/3 ML PRE-MIX VIAL INH SCH (07:37)
[2022-05-11] MEDS: PIPERACILLIN SODIUM/TAZOBACTAM 4.5 GM in NS (IVPB) 100 ML IV SCH ×3 (08:10→23:19)
[2022-05-11] MEDS: DOCUSATE SODIUM 100 MG (COLACE) CAP PO SCH ×2 (08:15→20:56)
[2022-05-11] MEDS: SENNOSIDES 8.6 MG (SENOKOT) TAB PO SCH ×2 (08:15→20:56)
--- NOTE | 2022-05-11 09:48 | Diagnostic Imaging Report ---
INDICATION: Lump right medial side. Ultrasound of the soft tissues of the right upper medial thigh does not demonstrate any pathologic mass or fluid collection. IMPRESSION: Unremarkable ultrasound of the right upper medial thigh. Dictated by: Dictated on workstation # [id number]
[2022-05-11] MEDS ORDERED: LORazepam 1 MG (ATIVAN) TAB PO PRN (10:00)
--- NOTE | 2022-05-11 10:02 | Tele-ICU Consult ---
History of Present Illness History of Present Illness Date Seen by Provider: May 11, 2022 Time Seen by Provider: 10:01 Date of Admission (Tele-ICU Physician , consultation as per request of PCP Service provided via interactive audio and video telecommunications E-CARE system to a patient admitted to ICU bed in [facility]. Available chart/ vitals / labs / Images reviewed H&P is from ER notes Patient's information available about PMH, Shx, Fhx allergy reviewed inEMR. ROS as per chart and RN report Now in ICU, hemodynamically stable Video assessment done using teleICU camera, rest of exam as per RN Discussed with RN. Hospital course: (05/10) 56y F with Osteomyelitis L foot, Cellulitis LLE, Hyperglycemia, AMS, ++ for amphetamines and meth. A/P Cellulitis - abx initiated - sx consulted - follow recom Hyperglycemia, DM - insulin gtt off, started on long acting AMS change - dure to all above - back to normal Polysubst abuse - ++ for amphetamines and meth. - benzo prn for withdrawal Hx of recurring DVT of the left leg - not on AC COPD - prn br dilators h/o KRISTEN not using CPAP Schizoaffective disorder Lines : , (Central Line Necessity Reviewed) Richardson: OG: Nutrition: Analgesia: Anxiety/ delirium VTE Prophylaxis: ant Stress Ulcer Prophylaxis: Plans in collaboration with bedside consultants and IM MDs. Discussed with RN to reach out if any questions or concerns A total of 31 minutes of critical care time was devoted to this patient today, required to treat and/or prevent further deterioration of critical care condition ( as above ) . I am remotely monitoring this patient from another state. I am unable to do the bedside exam, and history/physical and pertinent information is taken from other notes in the computer and bedside staff. . Allergies and Home Medications Allergies Coded Allergies: levofloxacin (Verified Allergy, Unknown, 06/21/14) sulfamethoxazole (Unverified Allergy, Unknown, 06/21/14) trimethoprim (Unverified Allergy, Unknown, 06/21/14) Home Medications Paliperidone Palmitate 234 Mg/1.5 Ml Syringe, 234 MG IM MONTHLY, (Reported) Past Medical/Social/Family Hx Patient Social History Tobacco Use?: No Substance use?: No Alcohol Use?: Yes Pt stated abuse/neglect: No Immunizations Up To Date Influenza Vaccine Up-to-Date: Yes; Up-to-Date Tetanus Booster (TDap): Unknown Hepatitis A: No Hepatitis B: No TB Skin Test: None Date of Pneumonia Vaccine: Jun 26, 2007 Current Status Advance Directives: Unable to obtain Communicates: Verbally Primary Language: Finnish Preferred Spoken Language: Finnish Is interpretation needed?: No Past Medical History Past medical history 1. Diabetes mellitus type II 2. Schizoaffective disorder 3. ADHD 4. Tobaccoism 5. Chronic venous insufficiency 6. History of recurring deep venous thrombosis Past surgical history 1. Cholecystectomy 2. Tubal ligation 3. Hysterectomy Review of Systems Constitutional: see HPI Focused Exam Lactate Level 05/10/22 15:40: Lactic Acid Level 3.29*H 05/10/22 17:35: Lactic Acid Level 1.39 Height, Weight, BMI Height: 5'7.00" Weight: 190lbs. 3.2oz. 86.384852zo; 21.87 BMI Method:Stated Exam Exam Patient acknowledged, consented, and participated in this virtual visit which was conducted using real time audio/video Vital Signs Date Time Temp Pulse Resp B/P (MAP) Pulse Ox O2 Delivery O2 Flow Rate FiO2 05/11/22 09:00 92 15 90/78 (85) 95 Room Air 05/11/22 08:00 36.4 05/11/22 08:00 101 130/77 (92) 96 Room Air 05/11/22 07:40 Room Air 05/11/22 07:00 95 14 118/67 (88) 100 Room Air 05/11/22 07:00 101 05/11/22 06:00 100 18 104/57 (73) 97 Room Air 05/11/22 05:00 95 20 106/76 (84) 97 05/11/22 04:13 Room Air 05/11/22 04:00 93 16 118/71 (87) 99 05/11/22 03:37 36.1 05/11/22 03:00 101 20 94/66 (79) 94 05/11/22 02:00 93 18 90/60 (69) 98 05/11/22 01:00 100 05/11/22 01:00 92 20 101/65 (75) 99 05/11/22 00:30 93 20 101/60 (73) 94 Room Air 05/11/22 00:10 Room Air 05/11/22 00:00 92 18 104/68 (79) 99 05/10/22 23:59 35.7 05/10/22 23:30 90 20 88/63 (73) 97 Room Air 05/10/22 23:00 90 16 94/68 (86) 97 Room Air 05/10/22 22:30 90 16 117/75 (95) 96 05/10/22 22:00 81 18 107/64 (85) 100 Room Air 05/10/22 22:00 81 14 107/64 (78) 99 Room Air 05/10/22 21:50 98 Room Air 05/10/22 21:30 93 15 101/66 (84) 94 05/10/22 21:05 84 19 96 05/10/22 21:00 84 18 127/67 (87) 96 Room Air 05/10/22 21:00 84 18 127/67 (87) 96 Room Air 05/10/22 20:30 79 15 114/66 (90) 98 05/10/22 20:15 80 15 97 05/10/22 20:00 78 15 105/65 (78) 97 Room Air 05/10/22 20:00 Room Air 05/10/22 20:00 36.0 76 13 105/65 (79) 97 Room Air 05/10/22 20:00 78 15 114/66 (82) 97 Room Air 05/10/22 19:45 79 16 95 05/10/22 19:30 80 14 111/73 (88) 97 05/10/22 19:15 76 16 96 05/10/22 19:11 36.4 96 98 21 05/10/22 19:00 80 05/10/22 19:00 80 15 112/66 (81) 97 Room Air 05/10/22 19:00 78 14 112/66 (84) 97 05/10/22 19:00 80 15 112/66 (81) 97 Room Air 05/10/22 18:34 90 05/10/22 18:15 90 16 123/69 99 Room Air 05/10/22 15:30 36.4 96 18 112/77 (89) 98 I & O 05/11/22 07:00 Intake Total 4413 ml Output Total 2450 ml Balance 1963 ml Height & Weight Height: 5'7.00" Weight: 190lbs. 3.2oz. 86.440086ze; 21.87 BMI Method:Stated General Appearance: No Apparent Distress, WD/WN, Thin, Other (Disheveled and unkept with soiled skin and clothing) HEENT: PERRL/EOMI, Normal ENT Inspection Neck: Normal Inspection; No JVD Respiratory: Lungs Clear, Normal Breath Sounds, No Accessory Muscle Use Cardiovascular: Regular Rate, Rhythm, No Murmur, Other (Edema of left lower extremity) Extremity: Other (Left lower extremity is markedly edematous from the foot up to the knee with warm erythema. Patient was wearing sweatpants under jeans with the elastic embedded deeply into the edema at mid calf. Distal pulses and capillary refill are normal. There is a dime sized ulceration) Neurologic/Psychiatric: Alert, No Motor/Sensory Deficits Skin: Normal Color, Warm/Dry, Erythema (Left lower leg, plantar foot ulcer) Results Lab Laboratory Tests 05/10/22 15:40 05/10/22 20:37 05/10/22 22:52 05/11/22 05:03 Assessment/Plan Assessment/Plan 1 LETITIA CAPONE MD May 11, 2022 10:02
--- NOTE | 2022-05-11 12:45 | Consultation - Surgery ---
History of Present Illness History of Present Illness Patient Consulted On(daniel/time) 05/11/22 12:40 Time Seen by Provider: 08:44 History of Present Illness Surgery consulted regarding Left foot abscess HPI Per ED: This 56-year-old woman presents to the emergency room via EMS with complaints of left lower extremity swelling, pain, erythema, and plantar ulcer. She has diabetes and has a caregiver at home who activated EMS because of these symptoms. Patient denies fever but does report pain. She seems rather somnolent with decreased alertness. She is agitated when asked questions. She is very unkept with soiled feet and clothing and matted hair. She was recently admitted to the hospital for cellulitis, altered mental status, and lower extremity edema but left AGAINST MEDICAL ADVICE. She tested positive for methamphetamine during that admission. Fingerstick blood sugars 593. She has an insulin treated diabetic. When I saw pt in the ICU she was sleeping and when I touched her shoulder to wake her she screamed "ow!!" and then refused to answer any questions. Allergies and Home Medications Allergies Coded Allergies: levofloxacin (Verified Allergy, Unknown, 06/21/14) sulfamethoxazole (Unverified Allergy, Unknown, 06/21/14) trimethoprim (Unverified Allergy, Unknown, 06/21/14) Patient Home Medication List Home Medication List Reviewed: Yes Paliperidone Palmitate (Invega Sustenna) 234 Mg/1.5 Ml Syringe, 234 MG IM MONTHLY, (Reported) Entered as Reported by: HEATHER GOTTI on 04/26/22 1232 Past Jsxwnhd-Vkzecf-Wjsssf Hx Patient Social History Type Used: Cigarettes 2nd Hand Smoke Exposure: No Recent Hopitalizations: No Alcohol Use?: Yes Have you traveled recently?: Unable to obtain Immunizations Up To Date Tetanus Booster (TDap): Unknown Date of Pneumonia Vaccine: Jun 26, 2007 Date of Influenza Vaccine: Dec 09, 2013 Seasonal Allergies Seasonal Allergies: No Surgeries History of Surgeries: Yes (STENT IN R URETER, BACK SURGERY, SUSANA FILTER) Surgeries: Gallbladder, Hysterectomy, Orthopedic, Renal, Tubal Ligation Respiratory History of Respiratory Disorde: Yes (NO CPAP) Respiratory Disorders: Asthma, Sleep Apnea, COPD Cardiovascular History of Cardiac Disorders: Yes (DVT LEFT LEG; CHRONIC VENOUS INSUFFICIENCY) Cardiac Disorders: Chronic Edema/Swelling, Coronary Artery Disease, Deep Vein Thrombosis Neurological History of Neurological Disord: Yes Neurological Disorders: Neuropathy 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 System Hx 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 Disorders: No Sexually Transmitted Disease: No HIV/AIDS: No 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 History: Hysterectomy Genitourinary History of Genitourinary Disor: Yes Genitourinary Disorders: Kidney Stones Gastrointestinal History of Gastrointestinal Di: Yes Gastrointestinal Disorders: Gastroesophageal Reflux Musculoskeletal History of Musculoskeletal Dis: Yes (CHRONIC LEG PAIN--L>R) Musculoskeletal Disorders: Arthritis, Chronic Back Pain Endocrine History of Endocrine Disorders: Yes Endocrine Disorders: Diabetes, Insulin dep HEENT History of HEENT Disorders: No Loss of Vision: Denies Hearing Impairment: Denies Cancer History of Cancer: No Psychosocial History of Psychiatric Problem: Yes Behavioral Health Disorders: Anxiety, Suicide Attempts, Bipolar, Depression Integumentary History of Skin or Integumenta: Yes (VENOUS STASIS CHANGES TO LEGS-LEFT > RIGHT) Blood Transfusions History of Blood Disorders: Yes (HX OF BLOOD CLOTS) Adverse Reaction to a Blood Tr: No Family Medical History Significant Family History: Diabetes, Hypertension Family Medial History: Diabetes mellitus 19 FATHER EMPHYSEMA 19 FATHER EPIEPSY G8 SISTER Hypertension 19 MOTHER STROKE 19 MOTHER No Family History of: Asthma Review of Systems-General ROS-Unable to Obtain: pt refusing to answer questions Physical Exam-General Problems Physical Exam Vital Signs Vital Signs - First Documented 05/10/22 05/10/22 05/10/22 08:30 15:30 19:11 Temp 36.4 Pulse 85 Resp 15 B/P (MAP) 105/64 (78) Pulse Ox 99 O2 Delivery Room Air FiO2 21 Capillary Refill : General Appearance: no apparent distress, thin, other (thinning hair) Eyes: Bilateral Eye PERRL, Bilateral Eye EOMI HEENT: No scleral icterus (R), No scleral icterus (L); other (edentulous) Respiratory: lungs clear, normal breath sounds, no respiratory distress, no accessory muscle use Cardiovascular: regular rate, rhythm, no murmur Gastrointestinal: non tender, soft, no organomegaly Extremities: no pedal edema, no calf tenderness, other (right upper inner th igh, there is erythema and fullness with questionable developing head. Left foot on ball of feet under 4th digit there is an ucler but no surrounding erythema) Lymphatic: no adenopathy (neck, axilla or groin) Data Review Labs Laboratory Tests 05/10/22 15:40: White Blood Count 11.7H, Red Blood Count 4.74, Hemoglobin 12.8, Hematocrit 39, Mean Corpuscular Volume 82, Mean Corpuscular Hemoglobin 27, Mean Corpuscular Hemoglobin Concent 33, Red Cell Distribution Width 14.8H, Platelet Count 392, Mean Platelet Volume 9.8, Immature Granulocyte % (Auto) 1, Neutrophils (%) (Auto) 73, Lymphocytes (%) (Auto) 21, Monocytes (%) (Auto) 5, Eosinophils (%) (Auto) 1, Basophils (%) (Auto) 1, Neutrophils # (Auto) 8.5H, Lymphocytes # (Auto) 2.4, Monocytes # (Auto) 0.6, Eosinophils # (Auto) 0.1, Basophils # (Auto) 0.1, Immature Granulocyte # (Auto) 0.1, Prothrombin Time 13.4, INR Comment 1.0, Activated Partial Thromboplast Time 32, D-Dimer 1.39H, Sodium Level 126L, Potassium Level 4.6, Chloride Level 90L, Carbon Dioxide Level 25, Anion Gap 11, Blood Urea Nitrogen 19H, Creatinine 1.02, Estimat Glomerular Filtration Rate 64, BUN/Creatinine Ratio 19, Glucose Level 750*H, Lactic Acid Level 3.29*H, Calcium Level 9.5, Corrected Calcium 10.0, Total Bilirubin 0.2, Aspartate Amino Transf (AST/SGOT) 9, Alanine Aminotransferase (ALT/SGPT) 15, Alkaline Phosphatase 127, C-Reactive Protein High Sensitivity 3.99H, Total Protein 9.0H, Albumin 3.4, Serum Alcohol < 10 05/10/22 16:06: Glucometer 593*H 05/10/22 16:12: Urine Color YELLOW, Urine Clarity CLEAR, Urine pH 6.5, Urine Specific [place] <=1.005, Urine Protein NEGATIVE, Urine Glucose (UA) 3+H, Urine Ketones NEGATIVE, Urine Nitrite NEGATIVE, Urine Bilirubin NEGATIVE, Urine Urobilinogen 0.2, Urine Leukocyte Esterase NEGATIVE, Urine RBC (Auto) NEGATIVE, Urine RBC RARE, Urine WBC NONE, Urine Squamous Epithelial Cells 0-2, Urine Crystals NONE, Urine Bacteria TRACE, Urine Casts NONE, Urine Mucus NEGATIVE, Urine Culture Indicated NO, Urine Opiates Screen NEGATIVE, Urine Oxycodone Screen NEGATIVE, Urine Methadone Screen NEGATIVE, Urine Propoxyphene Screen NEGATIVE, Urine Ba rbiturates Screen NEGATIVE, Ur Tricyclic Antidepressants Screen NEGATIVE, Urine Phencyclidine Screen NEGATIVE, Urine Amphetamines Screen POSITIVEH, Urine Methamphetamines Screen POSITIVEH, Urine Benzodiazepines Screen NEGATIVE, Urine Cocaine Screen NEGATIVE, Urine Cannabinoids Screen NEGATIVE 05/10/22 17:35: Lactic Acid Level 1.39 05/10/22 17:49: Glucometer 469*H 05/10/22 18:58: Glucometer 407*H 05/10/22 20:05: Glucometer 364H 05/10/22 20:37: Sodium Level 135, Potassium Level 3.2L, Chloride Level 106, Carbon Dioxide Level 23, Anion Gap 6, Blood Urea Nitrogen 14, Creatinine 0.65, Estimat Glomerular Filtration Rate 103, BUN/Creatinine Ratio 22, Glucose Level 355H, Calcium Level 7.5L, Beta-Hydroxybutyrate (Chem panel) 0.03 05/10/22 21:00: Glucometer 311H 05/10/22 21:59: Glucometer 239H 05/10/22 22:52: Sodium Level 136, Potassium Level 3.6, Chloride Level 105, Carbon Dioxide Level 22, Anion Gap 9, Blood Urea Nitrogen 13, Creatinine 0.60, Estimat Glomerular Filtration Rate 105, BUN/Creatinine Ratio 22, Glucose Level 155H, Calcium Level 8.2L 05/10/22 23:00: Glucometer 156H 05/10/22 23:57: Glucometer 126H 05/11/22 05:03: White Blood Count 9.5, Red Blood Count 4.06, Hemoglobin 11.2L, Hematocrit 33L, Mean Corpuscular Volume 81, Mean Corpuscular Hemoglobin 28, Mean Corpuscular Hemoglobin Concent 34, Red Cell Distribution Width 15.0H, Platelet Count 319, Mean Platelet Volume 9.4, Immature Granulocyte % (Auto) 1, Neutrophils (%) (Auto) 70, Lymphocytes (%) (Auto) 23, Monocytes (%) (Auto) 5, Eosinophils (%) (Auto) 1, Basophils (%) (Auto) 1, Neutrophils # (Auto) 6.6, Lymphocytes # (Auto) 2.2, Monocytes # (Auto) 0.5, Eosinophils # (Auto) 0.1, Basophils # (Auto) 0.1, Immature Granulocyte # (Auto) 0.1, Sodium Level 134L, Potassium Level 4.5, Chloride Level 104, Carbon Dioxide Level 21, Anion Gap 9, Blood Urea Nitrogen 12, Creatinine 0.60, Estimat Glomerular Filtration Rate 105, BUN/Creatinine Ratio 20, Glucose Level 165H, Calcium Level 7.9L, Corrected Calcium 9.1, Phosph orus Level 3.0, Magnesium Level 1.6, Total Bilirubin 0.3, Aspartate Amino Transf (AST/SGOT) 13, Alanine Aminotransferase (ALT/SGPT) 8, Alkaline Phosphatase 93, Total Protein 6.7, Albumin 2.5L 05/11/22 06:37: Glucometer 269H 05/11/22 10:11: Glucometer 293H Microbiology Radiology Date of Exam:05/11/22 US RIGHT LOW EXT NONVASC [id number] INDICATION: Lump right medial side. Ultrasound of the soft tissues of the right upper medial thigh does not demonstrate any pathologic mass or fluid collection. IMPRESSION: Unremarkable ultrasound of the right upper medial thigh. Dictated by: Dictated on workstation # [id number] Dict: 05/11/22 0941 Trans: 05/11/22 1128 CVB [id number] Interpreted by: KYREE ESTRADA MD Electronically signed by: KYREE ESTRADA MD 05/11/22 1128 Date of Exam:05/10/22 FOOT, LEFT, 2 VIEW HISTORY: Left foot ulcer. COMPARISON: None. TECHNIQUE: 2 views of the left foot. FINDINGS: There is an old posttraumatic deformity of the proximal 5th metatarsal shaft. No acute fracture is seen in the left foot. There is a type 1 accessory navicular. There are mild degenerative changes in the midfoot. There are small plantar and posterior calcaneal enthesophytes. There does appear to be a small amount of soft tissue gas plantar to the metatarsal heads. There is subtle osteopenia with questionable cortical indistinction at the medial aspect of the 4th metatarsal head. There is moderate soft tissue swelling about the left foot. IMPRESSION: 1. Soft tissue ulceration at the plantar left foot. Findings questionable for osteomyelitis of the 4th metatarsal head. MRI could be considered to further evaluate. 2. Old healed/healing fracture of the left 5th metatarsal. 3. Soft tissue swelling in the left foot. Dictated by: Dictated on workstation # [id number] Dict: 05/10/22 1606 Trans: 05/10/22 1642 PJE [id number] Interpreted by: ADELINA DAVISON MD Electronically signed by: ADELINA DAVISON MD 05/10/22 2897 Assessment/Plan Assessment/Plan Assessment/Plan Left Foot 4th Digit - Probable Osteomyelitis Right upper thigh - cellulitis, no abscess Methamphetamine abuse Pt needs MRI and will probably end up with a Left BKA, unfortunately she is very non-compliant and may not allow us to do this or even talk about it. IV ABX, pain control in the meantime. Clinical Quality Measures DVT/VTE Risk/Contraindication: Contraindications-Mechi: Other *list below* Other: cellulitis MACK HERNÁNDEZ DO May 11, 2022 12:45
--- NOTE | 2022-05-11 13:51 | Progress Note - Hospitalist ---
ANTHONY ANGUIANO 05/11/22 1351: Subjective HPI/CC On Admission Date Seen by Provider: May 11, 2022 Time Seen by Provider: 09:30 Janet is very somnolent this AM and asks to be left alone on exam. She has a hx of T2DM and methamphetamine use. She was seen 2 weeks prior for her foot wound but left AMA. She denies n/v and pain. Review of Systems General: Malaise Gastrointestinal: No: Nausea, Vomiting Focused Exam Lactate Level 05/10/22 15:40: Lactic Acid Level 3.29*H 05/10/22 17:35: Lactic Acid Level 1.39 Objective Exam Vital Signs Vital Signs Date Time Temp Pulse Resp B/P (MAP) Pulse Ox O2 Delivery O2 Flow Rate FiO2 05/11/22 13:41 36.5 82 18 91/53 (66) 95 Room Air 05/10/22 19:11 21 Capillary Refill : General Appearance: No Apparent Distress HEENT: Moist Mucous Membranes Neck: Normal Inspection, Supple; No JVD Respiratory: Lungs Clear, Normal Breath Sounds, No Accessory Muscle Use, No Respiratory Distress Cardiovascular: No JVD, No Murmur, Normal Peripheral Pulses Gastrointestinal: Non Tender, Soft; No Distended Extremity: Calf Tenderness, Pedal Edema, Other (LLE swelling. Plantar foot wound on left w/ purulent drainage and surrounding erythema. Plantar foot wound on right, closed, without erythema.) Neurologic/Psychiatric: No Motor/Sensory Deficits (Somnolent. A&ox2.) Skin: Normal Color, Warm/Dry; No Cyanosis Results/Procedures Lab Laboratory Tests 05/10/22 15:40 05/10/22 20:37 05/10/22 22:52 05/11/22 05:03 Patient resulted labs reviewed. Assessment/Plan Assessment and Plan Assess & Plan/Chief Complaint Left Plantar Foot wound LLE swelling Poss. Osteomyelitis 4th metatarsal head R upper thigh cellulitis -wound culture of purulent drainage from foot sent -Left leg U/s negative for dvt -surgery to consider MRI for osteo w/u -on Vanc, zosyn for now pending wound cx results T2DM -sugars in 500s on admit, now 269 -off insulin drip -high SSI to support wound healing Methamphetamine abuse -will discuss cessation when patient more awake. Dispo: transfer to floor. Wound results pending. Clinical Quality Measures DVT/VTE Risk/Contraindication: Contraindications-Mechi: Other *list below* Other: cellulitis BILLIE NEWSOME DO 05/12/22 0540: Supervisory-Addendum Brief Verification & Attestation Participated in pt care: history, MDM, physical Personally performed: exam, history, MDM, supervision of care Care discussed with: Medical Student Procedures: n/a Results interpretation: Verified all documentation Verification and Attestation of Medical Student E/M Service A medical student performed and documented this service in my presence. I reviewed and verified all information documented by the medical student and made modifications to such information, when appropriate. I personally performed the physical exam and medical decision making. Billie Newsome May 12, 2022,05:40 ANTHONY ANGUIANO May 11, 2022 13:51 BILLIE NEWSOME DO May 12, 2022 05:40
--- NOTE | 2022-05-11 15:10 | Physical Therapy Evaluation ---
PT Evaluation-General Medical Diagnosis Admission Date May 10, 2022 at 18:15 Medical Diagnosis: CELLULITS AND OPEN WOUND ON BOTTOM L FOOT Onset Date: May 10, 2022 Therapy Diagnosis Therapy Diagnosis: Gait deficit, strength deficit Height/Weight Height (Feet): 5 Height (Inches): 7.00 Weight (Pounds): 190 Weight (Ounces): 3.2 Precautions Precautions/Isolations: Fall Prevention, Standard Precautions Weight Bear Status Right Lower Extremity: Right Full Weight Bearing Left Lower Extremity: Left Full Weight Bearing No weight bearing restrictions per Dr. Sequeira orders. Referral Physician: Dr. Power Reason for Referral: Evaluation/Treatment Medical History Pertinent Medical History: Alcoholism, CAD, COPD, DM, Neuropathy, Smoking Reviewed History: Yes Social History Home: Single Level Current Living Status: Alone Entry Into Home: Stairs Without Railing PT Steps Into Home: 1 Prior Prior Level of Function SCALE: Activities may be completed with or without assistive devices. 4-Ukfivmpawj-mevnmic completes the activity by him/herself with no assistance from a helper. 5-Set-up or Clean-up Assistance-helper sets up or cleans up; patient completes activity. [place] assists only prior to or following the activity. 4-Supervision or Touching Assistance-helper provides verbal cues and/or touching/steadying and/or contact guard assistance as patient completes activity. Assistance may be provided throughout the activity or intermittently. 3-Partial/Moderate Assistance-helper does LESS THAN HALF the effort. [place] lifts, holds or supports trunk or limbs, but provides less than half the effort. 2-Substantial/Maximal Assistance-helper does MORE THAN HALF the effort. [place] lifts or holds trunk or limbs and provides more than half the effort. 7-Nmesmlscg-vqxoab does ALL the effort. Patient does none of the effort to complete the activity. Or, the assistance of 2 or more helpers is required for the patient to complete the activity. If activity was not attempted, code reason: 7-Patient Refused. 9-Not Applicable-not attempted and the patient did not perform the activity before the current illness, exacerbation or injury. 10-Not Attempted due to Environmental Limitations-(lack of equipment, weather restraints, etc.). 88-Not Attempted due to Medical Conditions or Safety Concerns. Bed Mobility: 6 Transfers (B,C,W/C): 6 Gait: 6 Stairs: 6 Indoor Mobility (Ambulation): Independent Stairs: Independent Prior Devices Use: Walker Initially patient reports she was independent with all ADLs, however when questioned further admitted that she has a caregiver that is present 24 hours a day. PT Evaluation-Current Subjective Patient lying supine in bed upon PT arrival, agreeable to PT treatment however requests warm blanket due to being cold. Objective Patient Orientation: Person, Place ROM/Strength ROM Lower Extremities WFLs bilaterally all planes via visual observation as patient becomes frustrated with instructions to perform ROM and MMT testing. Strength Lower Extremities 3+/5 bilaterally all planes via visual observation as patient becomes frustrated with instructions to perform ROM and MMT testing. Sensory Vision: Functional Hearing: Functional Transfers Roll Left to Right (QC): 3 Sit to Lying (QC): 3 Lying to Sitting/Side of Bed(Q: 3 Sit to Stand (QC): 3 Chair/Gmq-lu-Cwrjf Xfer(QC): 3 Gait Does the Patient Walk?: Yes Mode of Locomotion: Walk Anticipated Mode of Locomotion: Walk Walk 10 feet (QC): 88 Distance: 5 feet Gait Assistive Device: Cane Single Point Balance Sitting Static: Fair Sitting Dynamic: Fair Standing Static: Poor Standing Dynamic: Poor Assessment/Needs Patient tolerates treatment poorly. Requires mod/max coaxing to participate. Requires mod A for all observed bed mobility and transfers. Patient ambulates 5 feet with cane, with mod A and verbal cues for safety, progression, posture and proper use of cane. Patient ambulates with antalgic gait pattern with decreased stance time on left LE, poor balance and decreased SVETLANA. Patient in chair post treatment with all needs met, nursing notified, call light in hand. Rehab Potential: Poor Equipment Needs Patient may benefit from FWW PT Butter Production Supervisor Goals Halfway Goals PT Butter Production Supervisor Goals Time Frame: May 26, 2022 Roll Left & Right (QC): 5 Sit to Lying (QC): 5 Lying-Sitting on Side/Bed(QC): 5 Sit to Stand (QC): 5 Chair/Vwb-hj-Nxzsg Xfer(QC): 5 Toilet Transfer (QC): 5 Does the Patient Walk: Yes Walk 10 feet (QC): 5 Walk 50ft with 2 Turns (QC): 5 Walk 150 ft (QC): 4 1 Step (curb) (QC): 4 PT Plan Problem List Problem List: Activity Tolerance, Functional Strength, Safety, Balance, Gait, Transfer, Bed Mobility, ROM Treatment/Plan Treatment Plan: Continue Plan of Care Treatment Plan: Bed Mobility, Education, Functional Activity Maggy, Functional Strength, Group Therapy, Gait, Safety, Therapeutic Exercise, Transfers Treatment Duration: Jun 08, 2022 Frequency: 6 times per week Estimated Hrs Per Day: .25 hour per day Patient and/or Family Agrees t: Yes Safety Risks/Education Patient Education: Gait Training, Transfer Techniques Teaching Recipient: Patient Teaching Methods: Demonstration, Discussion Response to Teaching: Reinforcement Needed Time Time In: 1424 Time Out: 1436 DATE: May 11, 2022 Total Billed Treatment Time: 12 Total Billed Treatment Visit, IVORY VALDEZ PT May 11, 2022 15:09
[2022-05-11 16:30] VITALS: BP 116/59
--- NOTE | 2022-05-11 16:49 | Occupational Therapy Eval ---
OT Evaluation-General/PLF Medical Diagnosis Admission Date May 10, 2022 at 18:15 Medical Diagnosis: CELLULITS AND OPEN WOUND ON BOTTOM L FOOT Onset Date: May 10, 2022 Therapy Diagnosis Therapy Diagnosis: weakness Height/Weight Height (Feet): 5 Height (Inches): 7.00 Weight (Pounds): 190 Weight (Ounces): 3.2 Precautions Precautions/Isolations: Fall Prevention, Standard Precautions Weight Bear Status Weight Bearing Restriction: Non Weight Bearing Referral Physician: Dr. Power Referral Reason: Evaluation/Treatment Medical History Pertinent Medical History: Alcoholism, CAD, COPD, DM, Neuropathy, Smoking Reviewed History: Yes Social History Home: Single Level Current Living Status: Alone Entry Into Home: Stairs Without Railing Steps Into Home: 1 ADL-Prior Level of Function SCALE: Activities may be completed with or without assistive devices. 6-Hyyifvdfnx-jgkuder completes the activity by him/herself with no assistance from a helper. 5-Set-up or Clean-up Assistance-helper sets up or cleans up; patient completes activity. [place] assists only prior to or following the activity. 4-Supervision or Touching Assistance-helper provides verbal cues and/or touching/steadying and/or contact guard assistance as patient completes activity. Assistance may be provided throughout the activity or intermittently. 3-Partial/Moderate Assistance-helper does LESS THAN HALF the effort. [place] lifts, holds or supports trunk or limbs, but provides less than half the effort. 2-Substantial/Maximal Assistance-helper does MORE THAN HALF the effort. [place] lifts or holds trunk or limbs and provides more than half the effort. 8-Iisbgccwy-pbnxmf does ALL the effort. Patient does none of the effort to complete the activity. Or, the assistance of 2 or more helpers is required for the patient to complete the activity. If activity was not attempted, code reason: 7-Patient Refused. 9-Not Applicable-not attempted and the patient did not perform the activity before the current illness, exacerbation or injury. 10-Not Attempted due to Environmental Limitations-(lack of equipment, weather restraints, etc.). 88-Not Attempted due to Medical Conditions or Safety Concerns. Self Care: Needed Some Help Functional Cognition: Needed Some Help DME/Equipment Comments cane Drive Self: No OT Current Status Subjective REquest warm blanket, low motivation to participate Mental Status/Objective Patient Orientation: Person, Confused Attachments: Richardson Catheter Current Upper Extremity ROM WFL Upper Extremity Strength +3/5 ADL-Treatment Eating (QC): 6 Oral Hygiene (QC): 4 Shower/Bathe Self (QC): 7 Upper Body Dressing (QC): 4 Lower Body Dressing (QC): 3 On/Off Footwear (QC): 1 Toileting Hygiene (QC): 7 Education OT Patient Education: Correct positioning, Modified ADL techniques, Progress toward Goal/Update tx plan, Purpose of tx/functional activities, Reviewed precautions, Rehab process, Safety issues, Transfer techniques, Use of adapted equipment Teaching Recipient: Patient Teaching Methods: Demonstration, Discussion Response to Teaching: Reinforcement Needed OT Head Loft Worker Goals Longterm Goals Oral Hygiene (QC): 5 Toileting Hygiene (QC): 4 Shower/Bathe Self (QC): 4 Upper Body Dressing (QC): 4 Lower Body Dressing (QC): 4 On/Off Footwear (QC): 4 1=Demonstrate adherence to instructed precautions during ADL tasks. 2=Patient will verbalize/demonstrate understanding of assistive devices/modifications for ADL. 3=Patient will improve strength/tolerance for activity to enable patient to perform ADL's. OT Education/Plan Problem List/Assessment Assessment: Decreased Activ Tolerance, Decreased Safety Aware, Impaired Coord ination, Impaired Funct Balance, Impaired Self-Care Skills Discharge Recommendations Plan/Recommendations: Continue POC Treatment Plan/Plan of Care Treatment,Training & Education: Yes Patient would benefit from OT for education, treatment and training to promote independence in ADL's, mobility, safety and/or upper extremity function for ADL's. Plan of Care: ADL Retraining, Functional Mobility, UE Funct Exercise/Act Treatment Duration: May 19, 2022 Frequency: 3 times per week (3-5 times per week) Estimated Hrs Per Day: .25 hour per day Rehab Potential: Guarded Time Start Time: 14:25 Stop Time: 14:37 DATE: May 11, 2022 Total Time Billed (hr/min): 12 Billed Treatment Time 1 EVM 12min CARINE FRAZIER OT May 11, 2022 16:49
[2022-05-11] MEDS ORDERED: TROUGH ORDER-PHARMACY XX ONE (18:00)
[2022-05-11] MEDS: ENOXAPARIN 40 MG/0.4 ML (LOVENOX) SYR SC SCH (18:06)
[2022-05-11 19:56] VITALS: BP 101/59
[2022-05-12] VITALS (7 sets, daily range): BP systolic 97–112; BP diastolic 51–64
[2022-05-12 06:26] LABS: ALBUMIN 2.5 GM/DL (3.2-4.5); BILIRUBIN,TOTAL 0.2 MG/DL (0.1-1.0); CALCIUM 8.5 MG/DL (8.5-10.1); CREATININE SERUM 0.72 MG/DL (0.60-1.30); MAGNESIUM 1.9 MG/DL (1.6-2.4); POTASSIUM 4.3 MMOL/L (3.6-5.0); TOTAL PROTEIN 7.1 GM/DL (6.4-8.2)
[2022-05-12] MEDS: inSUlin ASPART (NovoLOG) 1 UNIT/0.01 ML (CHARGE PER UNIT) SC SCH ×3 (06:55→17:43)
[2022-05-12] MEDS: VANCOMYCIN 750 MG/NS 250 ML IVPB IV SCH ×4 (06:55→18:59)
--- NOTE | 2022-05-12 07:32 | Progress Note - Hospitalist ---
Subjective HPI/CC On Admission Date Seen by Provider: May 12, 2022 Time Seen by Provider: 11:00 Janet is very somnolent this AM and asks to be left alone on exam. She has a hx of T2DM and methamphetamine use. She was seen 2 weeks prior for her foot wound but left AMA. She denies n/v and pain. Subjective/Events-last exam Improved overall High sugars Insulin will be increased No pain reported IV abx maintained Review of Systems General: Fatigue, Malaise Focused Exam Lactate Level 05/10/22 15:40: Lactic Acid Level 3.29*H 05/10/22 17:35: Lactic Acid Level 1.39 Objective Exam Vital Signs Vital Signs Date Time Temp Pulse Resp B/P (MAP) Pulse Ox O2 Delivery O2 Flow Rate FiO2 05/12/22 19:21 36.7 102 18 99/52 (68) 95 Room Air 05/11/22 18:22 21 Capillary Refill : General Appearance: No Apparent Distress, WD/WN, Chronically ill Respiratory: No Accessory Muscle Use, No Respiratory Distress, Decreased Breath Sounds Cardiovascular: Regular Rate, Rhythm Neurologic/Psychiatric: Alert Results/Procedures Lab Laboratory Tests 05/12/22 05:20 Patient resulted labs reviewed. Assessment/Plan Assessment and Plan Assess & Plan/Chief Complaint Assessment: Left Plantar Foot wound LLE swelling Poss. Osteomyelitis 4th metatarsal head R upper thigh cellulitis -wound culture of purulent drainage from foot sent -Left leg U/s negative for dvt -surgery to consider MRI for osteo w/u -on Vanc, zosyn for now pending wound cx results T2DM -sugars in 500s on admit, now 269 -off insulin drip -high SSI to support wound healing Methamphetamine abuse -will discuss cessation when patient more awake. Clinical Quality Measures DVT/VTE Risk/Contraindication: Contraindications-Mechi: Other *list below* Other: cellulitis KAPIL NEWSOME DO May 12, 2022 07:32
[2022-05-12] MEDS: DOCUSATE SODIUM 100 MG (COLACE) CAP PO SCH ×2 (08:50→21:00)
[2022-05-12] MEDS: SENNOSIDES 8.6 MG (SENOKOT) TAB PO SCH ×2 (08:50→21:00)
[2022-05-12] MEDS: PIPERACILLIN SODIUM/TAZOBACTAM 4.5 GM in NS (IVPB) 100 ML IV SCH ×3 (08:58→23:46)
--- NOTE | 2022-05-12 10:36 | Progress Note - Surgery ---
JUAN MIGUELLANDON 05/12/22 1036: Subjective Date Seen by a Provider: May 12, 2022 Time Seen by a Provider: 07:25 Subjective/Events-last exam Pt is resting in chair sleeping comfortably. Pt c/o pain that starts in back and extends into legs. Pt states this is chronic. Pt denies any pain in the L foot today. Pt has been tolerating diet well and per nurse, pt has been requested to eat multiple times overnight. Pt had a BM yesterday. Foot XRAY on 05/10 of the L foot was remarkable for soft tissue ulceration at the plantar of L foot with findings questionable for osteomyelitis of the 4th metatarsal head. Old healing fracture of left 5th metatarsal also visualized. Preliminary result from wound culture from L foot ulcer on 05/11 showed group B strep, B hemolytic group C strep, and gram negative rods. Pt expresses desire to proceed with medical management of foot wound and would not like surgery at this time. Pt denies chills, nausea, vomiting, and abd pain. Review of Systems General: No Chills, No Appetite HEENT: No Eye Pain, No Dysphasia Pulmonary: No Cough, No Pleuritic Chest Pain Cardiovascular: No: Chest Pain, Palpitations Gastrointestinal: No: Nausea, Vomiting, Abdominal Pain Genitourinary: No Dysuria, No Hematuria Musculoskeletal: back pain (chronic), leg pain (b/l radiation from back; chronic ) Neurological: No: Weakness, Numbness Focused Exam Lactate Level 05/10/22 15:40: Lactic Acid Level 3.29*H 05/10/22 17:35: Lactic Acid Level 1.39 Objective Exam Vital Signs Date Time Temp Pulse Resp B/P (MAP) Pulse Ox O2 Delivery O2 Flow Rate FiO2 05/12/22 08:00 97 Room Air 05/12/22 07:28 36.6 87 18 102/64 (77) 94 Room Air 05/12/22 07:00 85 05/12/22 03:55 36.5 93 18 112/63 (79) 98 Room Air 05/12/22 03:41 36.5 05/12/22 01:00 88 05/12/22 00:14 36.5 87 18 100/52 (68) 94 Room Air 05/11/22 20:00 Room Air 05/11/22 19:56 93 Room Air 05/11/22 19:56 37.0 83 18 101/59 (73) 94 Room Air 05/11/22 19:00 86 05/11/22 18:22 88 98 21 05/11/22 17:06 88 05/11/22 16:30 36.5 87 18 116/59 (78) 98 Room Air 05/11/22 13:41 36.5 82 18 91/53 (66) 95 Room Air 05/11/22 12:00 98 Room Air 05/11/22 12:00 86 16 102/76 (92) 96 Room Air 05/11/22 11:59 36.3 05/11/22 11:00 85 16 127/78 (97) 98 Room Air I & O 05/12/22 07:00 Intake Total 2822 ml Output Total 4800 ml Balance -1978 ml Capillary Refill : General Appearance: No Apparent Distress, Thin HEENT: PERRL/EOMI, Moist Mucous Membranes Neck: Non Tender, Supple; No JVD Respiratory: Lungs Clear, Normal Breath Sounds, No Accessory Muscle Use, No Respiratory Distress Cardiovascular: Regular Rate, Rhythm (L calf along cellulitis ), No Murmur Gastrointestinal: non tender, soft, no organomegaly Extremity: Calf Tenderness, Pedal Edema, Other (Plantar foot wound on left, no drainage or surrounding erythema noted) Neurologic/Psychiatric: Alert, Oriented x3 Skin: Normal Color, Warm/Dry, Other (cellulitis of L anterior long extending from just above the ankle to a few inches below the knee, erythematous and warm to touch; L plantar aspect of foot inferior to 4th digit, small ulcer present. No drainage or erythema noted;R upper medial thigh, small patch of cellulitis with some induration and scant fluctuance noted in center) Lymphatic: No Adenopathy Results Lab Laboratory Tests 05/11/22 18:22: Glucometer 259H 05/11/22 18:30: Vancomycin Level Trough 9.2L 05/11/22 21:22: Glucometer 123H 05/12/22 05:20: Sodium Level 130L, Potassium Level 4.3, Chloride Level 99, Carbon Dioxide Level 24, Anion Gap 7, Blood Urea Nitrogen 11, Creatinine 0.72, Estimat Glomerular Filtration Rate 97, BUN/Creatinine Ratio 15, Glucose Level 302H, Calcium Level 8.5, Corrected Calcium 9.7, Magnesium Level 1.9, Total Bilirubin 0.2, Aspartate Amino Transf (AST/SGOT) 14, Alanine Aminotransferase (ALT/SGPT) 10, Alkaline Phosphatase 89, Total Protein 7.1, Albumin 2.5L Microbiology 05/11/22 Gram Stain, Resulted Pending 05/11/22 Wound Culture - Preliminary, Resulted Group B Streptococci Strep, Beta Hemolytic Group C Gram Negative [place] 05/10/22 MRSA Screen - Final, Complete MRSA not isolated 05/10/22 Blood Culture - Preliminary, Resulted No growth Assessment/Plan Assessment/Plan Assessment/Plan Left Foot 4th Digit - Probable Osteomyelitis L foot ulcer Right upper thigh - cellulitis, no abscess Methamphetamine abuse Pt does not wish to proceed with any surgical interventions at this time, will proceed medical management with IV abx and pain control and reassess as needed. continue IV abx pain control prn continue glycemic control Continue to monitor R upper thigh cellulitis for abscess formation Clinical Quality Measures DVT/VTE Risk/Contraindication: Contraindications-Mechi: Other *list below* Other: cellulitis ANNAMARIA ENGLISH DO 05/13/22 1222: Subjective Subjective/Events-last exam Patient not with any pain in the left foot. Has area on right thigh. Slightly uncomfortable. Staying about the same. Wants to try and avoid surgery. No new complaints. Denies n/v fever sweats chills shortness of breath or chest pain. Objective Exam General Appearance: No Apparent Distress, WD/WN, Thin HEENT: PERRL/EOMI, Normal ENT Inspection Neck: Non Tender, Supple Respiratory: Chest Non Tender, No Accessory Muscle Use, No Respiratory Distress Cardiovascular: Regular Rate, Rhythm (L calf along cellulitis ), No JVD Gastrointestinal: non tender, soft Extremity: Calf Tenderness (left erythema), Pedal Edema, Other (Plantar foot wound on left, no drainage or surrounding erythema noted, right medial thigh with indurated erythematous area no fluctuance) Neurologic/Psychiatric: Alert, Oriented x3 Skin: Normal Color, Warm/Dry, Other (cellulitis of L anterior long extending from just above the ankle to a few inches below the knee, erythematous and warm to touch; L plantar aspect of foot inferior to 4th digit, small ulcer present. No drainage or erythema noted;R upper medial thigh, small patch of cellulitis with some induration and no fluctuance) Lymphatic: No Adenopathy Assessment/Plan Assessment/Plan Assessment/Plan Left Foot 4th Digit - Probable Osteomyelitis L foot ulcer Right upper thigh - cellulitis, no abscess Methamphetamine abuse Pt does not wish to proceed with any surgical interventions at this time, will proceed medical management with IV abx and pain control and reassess as needed. continue IV abx pain control prn continue glycemic control Continue to monitor R upper thigh cellulitis for abscess formation Supervisory-Addendum Brief Verification & Attestation Participated in pt care: history, MDM, physical Personally performed: exam, history, MDM, supervision of care Care discussed with: Medical Student Procedures: n/a Results interpretation: Verified all documentation Verification and Attestation of Medical Student E/M Service A medical student performed and documented this service in my presence. I reviewed and verified all information documented by the medical student and made modifications to such information, when appropriate. I personally performed the physical exam and medical decision making. Annamaria English May 12, 2022,15:22 LANDON BULLARD May 12, 2022 10:36 ANNAMARIA ENGLISH DO May 13, 2022 12:22
--- NOTE | 2022-05-12 11:19 | Physical Therapy Daily Note ---
PT Daily Note-Current Subjective Pt is agreeable to treatment. No issues voiced on arrival. Pain Section J - Health Conditions 1. Rarely or not at all 2. Occasionally 3. Frequently 4. Almost constantly 8. Unable to answer Pain Effect on Sleep: 2 Pain Interference with Therapy: 2 Pain Interference w/Day-to-Day: 2 Mental Status Patient Orientation: Person, Place, Time, Situation Attachments: Oxygen, Richardson Catheter, IV Transfers SCALE: Activities may be completed with or without assistive devices. 9-Brgjgpvaal-jnlhldx completes the activity by him/herself with no assistance from a helper. 5-Set-up or Clean-up Assistance-helper sets up or cleans up; patient completes activity. [place] assists only prior to or following the activity. 4-Supervision or Touching Assistance-helper provides verbal cues and/or touching/steadying and/or contact guard assistance as patient completes activity. Assistance may be provided throughout the activity or intermittently. 3-Partial/Moderate Assistance-helper does LESS THAN HALF the effort. [place] lifts, holds or supports trunk or limbs, but provides less than half the effort. 2-Substantial/Maximal Assistance-helper does MORE THAN HALF the effort. [place] lifts or holds trunk or limbs and provides more than half the effort. 4-Hhhnvyvfg-ilpauw does ALL the effort. Patient does none of the effort to complete the activity. Or, the assistance of 2 or more helpers is required for the patient to complete the activity. If activity was not attempted, code reason: 7-Patient Refused. 9-Not Applicable-not attempted and the patient did not perform the activity before the current illness, exacerbation or injury. 10-Not Attempted due to Environmental Limitations-(lack of equipment, weather restraints, etc.). 88-Not Attempted due to Medical Conditions or Safety Concerns. Roll Left & Right (QC): 4 Sit to Lying (QC): 4 Lying to Sitting/Side of Bed(Q: 4 Sit to Stand (QC): 4 Chair/Cde-nb-Qfykx Xfer(QC): 4 Weight Bearing Right Lower Extremity: Right Full Weight Bearing Left Lower Extremity: Left Full Weight Bearing No weight bearing restrictions per Dr. Sequeira orders. Gait Training Does the Patient Walk?: Yes Distance: 210ft Walk 10 feet (QC): 5 Walk 50 ft with 2 Turns(QC): 5 Walk 150 ft (QC): 5 Gait Persons Needed: 1 Gait Assistive Device: FWW Wheelchair Training Does the Pt Use a Wheelchair?: No Exercises Supine Ex: LE Protocol Supine Reps: 15 Assessment Current Status: Good Progress Pt was eager to walk more today than she did yesterday. Good stability with g ait, no issues observed. No assist needed with supine leg exercises. PT Residential Goals Water Sponger Goals PT Residential Goals Time Frame: May 26, 2022 Roll Left & Right (QC): 5 Sit to Lying (QC): 5 Lying-Sitting on Side/Bed(QC): 5 Sit to Stand (QC): 5 Chair/Zkx-gl-Boaoo Xfer(QC): 5 Toilet Transfer (QC): 5 Does the Patient Walk: Yes Walk 10 feet (QC): 5 Walk 50ft with 2 Turns (QC): 5 Walk 150 ft (QC): 4 1 Step (curb) (QC): 4 PT Plan Treatment/Plan Treatment Plan: Continue Plan of Care Treatment Plan: Bed Mobility, Education, Functional Activity Maggy, Functional Strength, Group Therapy, Gait, Safety, Therapeutic Exercise, Transfers Treatment Duration: Jun 08, 2022 Frequency: 6 times per week Estimated Hrs Per Day: .25 hour per day Patient and/or Family Agrees t: Yes Time Time In: 1000 Time Out: 1015 DATE: May 12, 2022 Total Billed Treatment Time: 15 Total Billed Treatment 1, gt 15 TERRY MCKEON PT May 12, 2022 11:19
[2022-05-12] MEDS: ENOXAPARIN 40 MG/0.4 ML (LOVENOX) SYR SC SCH (17:43)
[2022-05-13] MEDS: VANCOMYCIN 750 MG/NS 250 ML IVPB IV SCH ×2 (06:07)
[2022-05-13] MEDS: inSUlin ASPART (NovoLOG) 1 UNIT/0.01 ML (CHARGE PER UNIT) SC SCH ×3 (06:07→17:07)
[2022-05-13 06:15] LABS: ALBUMIN 2.9 GM/DL (3.2-4.5); POTASSIUM 4.2 MMOL/L (3.6-5.0)
[2022-05-13 06:17] LABS: CALCIUM 8.7 MG/DL (8.5-10.1)
[2022-05-13 06:18] LABS: TOTAL PROTEIN 7.9 GM/DL (6.4-8.2)
[2022-05-13 06:19] LABS: BILIRUBIN,TOTAL 0.2 MG/DL (0.1-1.0)
[2022-05-13 06:21] LABS: CREATININE SERUM 0.8 MG/DL (0.60-1.30)
[2022-05-13 06:24] LABS: MAGNESIUM 1.8 MG/DL (1.6-2.4)
--- NOTE | 2022-05-13 07:06 | Progress Note - Hospitalist ---
Subjective HPI/CC On Admission Date Seen by Provider: May 13, 2022 Time Seen by Provider: 11:00 Janet is very somnolent this AM and asks to be left alone on exam. She has a hx of T2DM and methamphetamine use. She was seen 2 weeks prior for her foot wound but left AMA. She denies n/v and pain. Subjective/Events-last exam Improved overall Doesn't like to be "bothered" No pain reported currently Eating well Brittle DM noted Review of Systems Musculoskeletal: leg pain Focused Exam Lactate Level 05/10/22 15:40: Lactic Acid Level 3.29*H 05/10/22 17:35: Lactic Acid Level 1.39 Objective Exam Vital Signs Vital Signs Date Time Temp Pulse Resp B/P (MAP) Pulse Ox O2 Delivery O2 Flow Rate FiO2 05/13/22 09:11 93 Room Air 0.00 05/13/22 07:25 36.8 90 18 101/67 (78) 05/11/22 18:22 21 Capillary Refill : General Appearance: No Apparent Distress, WD/WN, Chronically ill Respiratory: Lungs Clear Cardiovascular: Regular Rate, Rhythm Extremity: Other (left foot without erythema) Neurologic/Psychiatric: Alert Results/Procedures Lab Laboratory Tests 05/13/22 05:48 Patient resulted labs reviewed. Assessment/Plan Assessment and Plan Assess & Plan/Chief Complaint Assessment: Left Plantar Foot wound LLE swelling Poss. Osteomyelitis 4th metatarsal head R upper thigh cellulitis -wound culture of purulent drainage from foot sent -Left leg U/s negative for dvt -surgery to consider MRI for osteo w/u -on Vanc, zosyn for now pending wound cx results T2DM -sugars in 500s on admit, now 269 -off insulin drip -high SSI to support wound healing Methamphetamine abuse -will discuss cessation when patient more awake. Clinical Quality Measures DVT/VTE Risk/Contraindication: Contraindications-Mechi: Other *list below* Other: cellulitis KAPIL NEWSOME DO May 13, 2022 07:06
[2022-05-13 07:25] VITALS: BP 101/67
[2022-05-13] MEDS: DOCUSATE SODIUM 100 MG (COLACE) CAP PO SCH ×2 (08:22→22:07)
[2022-05-13] MEDS: SENNOSIDES 8.6 MG (SENOKOT) TAB PO SCH ×2 (08:22→22:07)
[2022-05-13] MEDS: PIPERACILLIN SODIUM/TAZOBACTAM 4.5 GM in NS (IVPB) 100 ML IV SCH ×3 (08:22→23:48)
--- NOTE | 2022-05-13 08:54 | Progress Note - Surgery ---
ELIUJEANNALANDON Escoto 05/13/22 0854: Subjective Date Seen by a Provider: May 13, 2022 Time Seen by a Provider: 08:15 Subjective/Events-last exam Pt is sleeping sitting up in bed. Pt states that she feels tired today but not weak. States that she is sleeping okay but continues to be tired. Pt has been t olerating diet well and has had no decrease in appetite. Pt continues to void without issue and last BM was yesterday. Pt has been ambulating to the chair from the bed and back without issue. Pt notes some "tingling" in her L leg but notes that she has experienced this since before admit. Urine output appropriate at 2.2 cc/ml/hr. Pt denies leg pain, abd pain, chills, nausea, vomiting, SOB, or CP. Review of Systems General: No Chills, No Night Sweats, No Appetite HEENT: No Ear Pain, No Dysphasia Pulmonary: No Dyspnea; Cough (intermittent, chronic ) Cardiovascular: No: Chest Pain, Palpitations Gastrointestinal: No: Nausea, Vomiting, Abdominal Pain Genitourinary: No Dysuria, No Hematuria Musculoskeletal: No: leg pain, foot pain Neurological: Numbness ("tingling" L leg, unchanged since admit); No: Weakness Focused Exam Lactate Level 05/10/22 15:40: Lactic Acid Level 3.29*H 05/10/22 17:35: Lactic Acid Level 1.39 Objective Exam Vital Signs Date Time Temp Pulse Resp B/P (MAP) Pulse Ox O2 Delivery O2 Flow Rate FiO2 05/13/22 07:25 36.8 90 18 101/67 (78) 96 Room Air 05/13/22 05:03 36.6 05/12/22 23:55 36.6 90 18 97/51 (66) 92 Room Air 05/12/22 20:00 Room Air 05/12/22 19:21 36.7 102 18 99/52 (68) 95 Room Air 05/12/22 15:45 36.6 90 16 97/55 (69) 94 Room Air 05/12/22 11:16 36.2 75 18 111/61 (78) 97 Room Air 05/12/22 09:58 Room Air I & O 05/13/22 07:00 Intake Total 2315 ml Output Total 2400 ml Balance -85 ml Capillary Refill : General Appearance: No Apparent Distress, WD/WN, Chronically ill, Thin, Other (somnulent ) HEENT: PERRL/EOMI, Moist Mucous Membranes Neck: Non Tender, Supple Respiratory: Lungs Clear, Normal Breath Sounds, No Accessory Muscle Use, No Respiratory Distress Cardiovascular: No Gallop, No Murmur, Tachycardia Gastrointestinal: non tender, soft, no organomegaly Extremity: Calf Tenderness (overlying cellulitis of L long and calf), Other (Plantar foot wound on left, scant serous and dried blood appreciated on bandage) Neurologic/Psychiatric: Alert, Oriented x3 Skin: Normal Color, Warm/Dry, Other (cellulitis of L anterior long extending from just above the ankle to a few inches below the knee, erythematous and warm to touch; L plantar aspect of foot inferior to 4th digit, small ulcer present. scant serous and dried blood noted on bandage, slough located in ulcer, no erythema or purulent drainage noted;R upper medial thigh, small patch of celluli tis with some induration and scant fluctuance noted in center, tenderness to palpation) Lymphatic: No Adenopathy Results Lab Laboratory Tests 05/12/22 11:07: Glucometer 350H 05/12/22 15:42: Glucometer 89 05/12/22 17:46: Glucometer 254H 05/12/22 20:45: Glucometer 186H 05/13/22 05:46: Glucometer 313H 05/13/22 05:48: Sodium Level 129L, Potassium Level 4.2, Chloride Level 97L, Carbon Dioxide Level 23, Anion Gap 9, Blood Urea Nitrogen 12, Creatinine 0.80, Estimat Glomerular Filtration Rate 86, BUN/Creatinine Ratio 15, Glucose Level 321H, Calcium Level 8.7, Corrected Calcium 9.6, Magnesium Level 1.8, Total Bilirubin 0.2, Aspartate Amino Transf (AST/SGOT) 11, Alanine Aminotransferase (ALT/SGPT) 9, Alkaline Phosphatase 92, Total Protein 7.9, Albumin 2.9L Microbiology 05/11/22 Gram Stain - Final, Resulted 05/11/22 Wound Culture - Preliminary, Resulted Mixed Bacterial Bridgett Group B Streptococci Strep, Beta Hemolytic Group C Gram Negative Preston 05/10/22 MRSA Screen - Final, Complete MRSA not isolated 05/10/22 Blood Culture - Preliminary, Resulted No growth Assessment/Plan Assessment/Plan Assessment/Plan Left Foot 4th Digit - Probable Osteomyelitis L foot ulcer Right upper thigh - cellulitis, no abscess Methamphetamine abuse Pt does not wish to proceed with any surgical interventions at this time, will proceed medical management with IV abx and pain control and reassess as needed. continue IV abx pain control prn continue glycemic control Continue to monitor R upper thigh cellulitis for abscess formation, consider imaging if worsens Clinical Quality Measures DVT/VTE Risk/Contraindication: Contraindications-Mechi: Other *list below* Other: cellulitis ANNAMARIA ESTRADA DO 05/13/22 1225: Subjective Subjective/Events-last exam Laying in bed. Wanting to go home soon. Right thigh about the same. Left lower extremity about the same. No Drainage. Denies new complaints. Denies n/v fever sweats chills shortness of breath or chest pain. Objective Exam General Appearance: No Apparent Distress, Chronically ill, Thin HEENT: PERRL/EOMI, Moist Mucous Membranes Neck: Non Tender, Supple Respiratory: Chest Non Tender, No Accessory Muscle Use, No Respiratory Distress Cardiovascular: No JVD, Tachycardia Gastrointestinal: non tender, soft Extremity: Calf Tenderness (overlying cellulitis of L long and calf), Other (Plantar foot wound on left, scant serous and dried blood appreciated on bandag e) Neurologic/Psychiatric: Alert, Oriented x3 Skin: Normal Color, Warm/Dry, Other (cellulitis of L anterior long extending from just above the ankle to a few inches below the knee, erythematous and warm to touch; L plantar aspect of foot inferior to 4th digit, small ulcer present. scant serous and dried blood noted on bandage, slough located in ulcer, no erythema or purulent drainage noted;R upper medial thigh, small patch of cellulitis with some induration and no fluctuance, tenderness to palpation) Lymphatic: No Adenopathy Assessment/Plan Assessment/Plan Assessment/Plan Left Foot 4th Digit - Probable Osteomyelitis L foot ulcer Right upper thigh - cellulitis, no abscess Methamphetamine abuse Pt does not wish to proceed with any surgical interventions at this time, will proceed medical management with IV abx and pain control and reassess as needed. continue IV abx pain control prn continue glycemic control Continue to monitor R upper thigh cellulitis for abscess formation, consider imaging if worsens warm compresses to the area Supervisory-Addendum Brief Verification & Attestation Participated in pt care: history, MDM, physical Personally performed: exam, history, MDM, supervision of care Care discussed with: Medical Student Procedures: n/a Results interpretation: Verified all documentation Verification and Attestation of Medical Student E/M Service A medical student performed and documented this service in my presence. I reviewed and verified all information documented by the medical student and made modifications to such information, when appropriate. I personally performed the physical exam and medical decision making. Annamaria Estrada May 13, 2022,12:25 LANDON BULLARD May 13, 2022 08:54 ANNAMARIA ESTRADA DO May 13, 2022 12:25
[2022-05-13 15:04] VITALS: BP 107/57
[2022-05-13] MEDS: ENOXAPARIN 40 MG/0.4 ML (LOVENOX) SYR SC SCH (18:51)
[2022-05-13 23:32] VITALS: BP 91/52
[2022-05-14 06:07] LABS: ALBUMIN 2.7 GM/DL (3.2-4.5); BILIRUBIN,TOTAL 0.2 MG/DL (0.1-1.0); CREATININE SERUM 0.83 MG/DL (0.60-1.30); MAGNESIUM 1.8 MG/DL (1.6-2.4); POTASSIUM 4.2 MMOL/L (3.6-5.0); TOTAL PROTEIN 7.6 GM/DL (6.4-8.2)
[2022-05-14] MEDS: inSUlin ASPART (NovoLOG) 1 UNIT/0.01 ML (CHARGE PER UNIT) SC SCH (06:15)
--- NOTE | 2022-05-14 07:20 | Progress Note - Surgery ---
CHRISTINE PERALTA 05/14/22 0720: Subjective Date Seen by a Provider: May 14, 2022 Time Seen by a Provider: 06:30 Subjective/Events-last exam 56F on day 4 of admission for BL LE cellulitis is resting comfortably in bed during examination w/ wounds covered with dressings. Pt denies any pain today, but says her BL LE feel "tingly, like pins and needles." States she is tolerating her diet w/o complaints. Pt is voiding and passing BMs w/o complaint. Denies any fever, chills, n/v, SOB, or chest pain. Review of Systems General: No Chills, No Night Sweats HEENT: No Head Aches, No Dysphasia Pulmonary: No Dyspnea, No Cough Cardiovascular: No: Chest Pain, Palpitations Gastrointestinal: No: Nausea, Vomiting, Abdominal Pain Genitourinary: No Dysuria, No Frequency Musculoskeletal: No: back pain, leg pain, foot pain Neurological: Other (BL LE neuropathy ); No: Weakness Objective Exam Vital Signs Date Time Temp Pulse Resp B/P (MAP) Pulse Ox O2 Delivery O2 Flow Rate FiO2 05/14/22 03:25 36.9 05/13/22 23:32 36.9 93 20 91/52 (65) 95 Room Air 05/13/22 20:00 Room Air 05/13/22 18:57 97 Room Air 05/13/22 15:04 36.5 86 18 107/57 (74) 97 Room Air 05/13/22 09:11 93 Room Air 0.00 05/13/22 08:00 96 Room Air 05/13/22 07:25 36.8 90 18 101/67 (78) 96 Room Air I & O 05/14/22 07:00 Intake Total 2280 ml Output Total 900 ml Balance 1380 ml Capillary Refill : General Appearance: No Apparent Distress, WD/WN, Chronically ill HEENT: PERRL/EOMI, Moist Mucous Membranes Neck: Non Tender, Supple Respiratory: Chest Non Tender, Lungs Clear, Normal Breath Sounds, No Accessory Muscle Use, No Respiratory Distress Cardiovascular: Regular Rate, Rhythm, No Murmur Peripheral Pulses: 2+ Dorsalis Pedis (R), 2+ Left Dors-Pedis (L); 3+ Radial Pulses (R), 3+ Radial Pulses (L) Gastrointestinal: non tender, soft, no organomegaly, no pulsatile mass Extremity: Non Tender, Inflammation (Lt LE), Other (Rt LE covered with dressing, no surrounding errythema or drainage) Neurologic/Psychiatric: Alert, Oriented x3 Skin: Normal Color, Warm/Dry, Other (cellulitis of L anterior long extending from just above the ankle to a few inches below the knee, erythematous and warm to touch; L plantar aspect of foot inferior to 4th digit, small ulcer present. scant serous and dried blood noted on bandage, slough located in ulcer, no erythema or purulent drainage noted;R upper medial thigh, small patch of cellulitis with some induration and no fluctuance, tenderness to palpation) Lymphatic: No Adenopathy Results Lab Laboratory Tests 05/13/22 11:11: Glucometer 129H 05/13/22 15:07: Glucometer 102 05/13/22 20:44: Glucometer 271H 05/14/22 05:13: Glucometer 377H 05/14/22 05:25: Sodium Level 130L, Potassium Level 4.2, Chloride Level 98, Carbon Dioxide Level 24, Anion Gap 8, Blood Urea Nitrogen 16, Creatinine 0.83, Estimat Glomerular Filtration Rate 82, BUN/Creatinine Ratio 19, Glucose Level 388H, Calcium Level 9.0, Corrected Calcium 10.0, Magnesium Level 1.8, Total Bilirubin 0.2, Aspartate Amino Transf (AST/SGOT) 13, Alanine Aminotransferase (ALT/SGPT) 10, Alkaline Phosphatase 87, Total Protein 7.6, Albumin 2.7L Microbiology 05/11/22 Gram Stain - Final, Resulted 05/11/22 Wound Culture - Preliminary, Resulted Mixed Bacterial Bridgett Group B Streptococci Streptococcus dysgalactiae Gram Negative Preston 05/10/22 MRSA Screen - Final, Complete MRSA not isolated 05/10/22 Blood Culture - Preliminary, Resulted No growth Assessment/Plan Assessment/Plan Assessment/Plan Left Foot 4th Digit - Probable Osteomyelitis L foot ulcer Right upper thigh - cellulitis uncontrolled DMII Methamphetamine abuse Pt does not wish to proceed with any surgical interventions at this time, will proceed medical management with IV abx and pain control and reassess as needed. continue IV abx continue pain control prn increase insulin to gain better glucose control Continue to monitor R upper thigh cellulitis, area covered with warm compress, possible MRI today to access for abscess if cellulitis shows signs of worsening Clinical Quality Measures DVT/VTE Risk/Contraindication: Contraindications-Mechi: Other *list below* Other: cellulitis MACK HERNÁNDEZ DO 05/14/22 1130: Supervisory-Addendum Brief Verification & Attestation Participated in pt care: other (Pt left AMA before I saw her) Personally performed: other (Pt left AMA before I saw her) Care discussed with: Medical Student Procedures: n/a Pt left AMA before I saw her CHRISTINE PERALTA May 14, 2022 07:20 MACK HERNÁNDEZ DO May 14, 2022 11:30
[2022-05-14 07:35] VITALS: BP 109/59
[2022-05-14 07:39] LABS: BASOPHILS # (AUTO) 0.1 10^3/uL (0.0-0.1); BASOPHILS % (AUTO) 1 % (0-10); EOSINOPHILS # (AUTO) 0.1 10^3/uL (0.0-0.3); EOSINOPHILS % (AUTO) 1 % (0-10); HEMATOCRIT 37 % (35-52); HEMOGLOBIN 11.9 g/dL (11.5-16.0); LYMPHOCYTES # (AUTO) 2.9 10^3/uL (1.0-4.0); LYMPHOCYTES % (AUTO) 37 % (12-44); MEAN CORPUSCULAR HEMOGLOBIN 27 pg (25-34); MEAN CORPUSCULAR HGB CONC 32 g/dL (32-36); MEAN CORPUSCULAR VOLUME 83 fL (80-99); MEAN PLATELET VOLUME 9.4 fL (9.0-12.2); MONOCYTES # (AUTO) 0.8 10^3/uL (0.0-1.0); MONOCYTES % (AUTO) 10 % (0-12); NEUTROPHILS % (AUTO) 50 % (42-75); PLATELET COUNT 313 10^3/uL (130-400); WHITE BLOOD COUNT 7.9 10^3/uL (4.3-11.0)
[2022-05-14] MEDS: PIPERACILLIN SODIUM/TAZOBACTAM 4.5 GM in NS (IVPB) 100 ML IV SCH (07:42)
[2022-05-14] MEDS: DOCUSATE SODIUM 100 MG (COLACE) CAP PO SCH ×2 (08:11→08:14)
[2022-05-14] MEDS: SENNOSIDES 8.6 MG (SENOKOT) TAB PO SCH ×2 (08:11→08:14)
--- NOTE | 2022-05-14 09:03 | Discharge Summary ---
Discharge Summary Hospital Course Was the Problem List Reviewed?: Yes Problems/Dx: (1) Osteomyelitis of left foot Status: Acute Qualifiers: Qualified Codes: M86.9 - Osteomyelitis, unspecified (2) Hyperglycemia (3) Left against medical advice Status: Acute Hospital Course Date of Admission: May 10, 2022 at 18:15 Admission Diagnosis : [facility] [place] Date of Discharge: 05/14/22 Discharge Diagnosis: [ ] Hospital Course: Hospital Course: Janet Trinh is a 56 yo F w/ a hx of T2DM, methamphetamine use, and a hx of leaving AMA during multiple stays. Janet presented on 05/11/22 with a purulent plantar foot wound and LLE cellulitis and was admitted to the icu for managment. She was placed on broad spectrum abx and her wound was cultured. She was switched to zosyn only and she received insulin for sugar control during her stay. Work up of her LLE was negative for DVT, and xray revealed possible osteomyelitis but recommended f/u MRI to r/o. Janet was transferred out of the [facility] on saturday05/11/22. Per the nurse, this AM she woke Janet up and Janet yelled at her and said, "Can't you see I'm trying to fkin' sleep?" and then asked for AMA paperwork so she could leave, despite knowing the risks in doing so. ANTHONY ANGUIANO Labs and Pending Lab Test: Laboratory Tests 05/13/22 11:11: Glucometer 129H 05/13/22 15:07: Glucometer 102 05/13/22 20:44: Glucometer 271H 05/14/22 05:13: Glucometer 377H 05/14/22 05:25: White Blood Count 7.9, Red Blood Count 4.44, Hemoglobin 11.9, Hematocrit 37, Mean Corpuscular Volume 83, Mean Corpuscular Hemoglobin 27, Mean Corpuscular Hemoglobin Concent 32, Red Cell Distribution Width 15.8H, Platelet Count 313, Mean Platelet Volume 9.4, Immature Granulocyte % (Auto) 1, Neutrophils (%) (Auto) 50, Lymphocytes (%) (Auto) 37, Monocytes (%) (Auto) 10, Eosinophils (%) (Auto) 1, Basophils (%) (Auto) 1, Neutrophils # (Auto) 4.0, Lymphocytes # (Auto) 2.9, Monocytes # (Auto) 0.8, Eosinophils # (Auto) 0.1, Basophils # (Auto) 0.1, Immature Granulocyte # (Auto) 0.1, Sodium Level 130L, Potassium Level 4.2, Chloride Level 98, Carbon Dioxide Level 24, Anion Gap 8, Blood Urea Nitrogen 16, Creatinine 0.83, Estimat Glomerular Filtration Rate 82, BUN/Creatinine Ratio 19, Glucose Level 388H, Calcium Level 9.0, Corrected Calcium 10.0, Magnesium Level 1.8, Total Bilirubin 0.2, Aspartate Amino Transf (AST/SGOT) 13, Alanine Aminotransferase (ALT/SGPT) 10, Alkaline Phosphatase 87, Total Protein 7.6, Albumin 2.7L Microbiology 05/11/22 Gram Stain - Final, Resulted 05/11/22 Wound Culture - Preliminary, Resulted Mixed Bacterial Bridgett Group B Streptococci Streptococcus dysgalactiae Gram Negative Preston 05/10/22 MRSA Screen - Final, Complete MRSA not isolated 05/10/22 Blood Culture - Preliminary, Resulted No growth Home Meds Active Reported Invega Sustenna (Paliperidone Palmitate) 234 Mg/1.5 Ml Syringe 234 Mg IM MONTHLY Assessment/Pt Instructions left ama Discharge Planning: <30 minutes discharge planning Discharge Physical Examination Vital Signs Vital Signs Date Time Temp Pulse Resp B/P (MAP) Pulse Ox O2 Delivery O2 Flow Rate FiO2 05/14/22 08:00 100 Room Air 0.00 05/14/22 07:35 36.2 96 18 109/59 (76) 05/11/22 18:22 21 Allergies: Coded Allergies: levofloxacin (Verified Allergy, Unknown, 06/21/14) sulfamethoxazole (Unverified Allergy, Unknown, 06/21/14) trimethoprim (Unverified Allergy, Unknown, 06/21/14) Discharge Summary Date of Admission May 10, 2022 at 18:15 Date of Discharge Discharge Diagnosis Assessment: Left Plantar Foot wound LLE swelling Poss. Osteomyelitis 4th metatarsal head R upper thigh cellulitis -wound culture of purulent drainage from foot sent -Left leg U/s negative for dvt -surgery to consider MRI for osteo w/u -on Vanc, zosyn for now pending wound cx results T2DM -sugars in 500s on admit, now 269 -off insulin drip -high SSI to support wound healing Methamphetamine abuse -will discuss cessation when patient more awake. Clinical Quality Measures DVT/VTE Risk/Contraindication: Contraindications-Mechi: Other *list below* Other: cellulitis KAPIL NEWSOME DO May 14, 2022 09:03
--- NOTE | 2022-05-14 12:37 | Progress Note ---
ANTHONY ANGUIANO 05/14/22 1236: Progress Note Hospital Course: Janet Trinh is a 56 yo F w/ a hx of T2DM, methamphetamine use, and a hx of leaving AMA during multiple stays. Janet presented on 05/11/22 with a purulent plantar foot wound and LLE cellulitis and was admitted to the icu for managment. She was placed on broad spectrum abx and her wound was cultured. She was switched to zosyn only and she received insulin for sugar control during her stay. Work up of her LLE was negative for DVT, and xray revealed possible osteomyelitis but recommended f/u MRI to r/o. Janet was transferred out of the [facility] on saturday05/11/22. Per the nurse, this AM she woke Janet up and Janet yelled at her and said, "Can't you see I'm trying to fkin' sleep?" and then asked for AMA paperwork so she could leave, despite knowing the risks in doing so. BILLIE NEWSOME DO 05/15/22 0445: Supervisory-Addendum Brief Verification & Attestation Participated in pt care: history, MDM, physical Personally performed: exam, history, MDM, supervision of care Care discussed with: Medical Student Procedures: n/a Results interpretation: Verified all documentation Verification and Attestation of Medical Student E/M Service A medical student performed and documented this service in my presence. I reviewed and verified all information documented by the medical student and made modifications to such information, when appropriate. I personally performed the physical exam and medical decision making. Billie Newsome May 15, 2022,04:45 ANTHONY ANGUIANO May 14, 2022 12:36 BILLIE NEWSOME DO May 15, 2022 04:45
== END 2022-05-14 08:25 | disposition left against medical advice (07) | DRG 638 ==
LOC: EDUNIT# 15:30 → ER 15:31 → ICU 18:15 → 4TH 05-11 13:00
PROVIDERS: ADMIT Internal Medicine; ATTEND Internal Medicine
DX: E11.69 Type 2 diabetes mellitus with other specified complication (principal); L03.115 Cellulitis of right lower limb; M86.172 Other acute osteomyelitis, left ankle and foot; E11.65 Type 2 diabetes mellitus with hyperglycemia; F15.10 Other stimulant abuse, uncomplicated; G47.33 Obstructive sleep apnea (adult) (pediatric); F25.9 Schizoaffective disorder, unspecified; F90.9 Attention-deficit hyperactivity disorder, unspecified type; Z87.891 Personal history of nicotine dependence; I87.2 Venous insufficiency (chronic) (peripheral); Z86.718 Personal history of other venous thrombosis and embolism; I25.10 Atherosclerotic heart disease of native coronary artery without angina pectoris; E11.40 Type 2 diabetes mellitus with diabetic neuropathy, unspecified; K21.9 Gastro-esophageal reflux disease without esophagitis; M19.90 Unspecified osteoarthritis, unspecified site; G89.29 Other chronic pain; M54.9 Dorsalgia, unspecified; F41.9 Anxiety disorder, unspecified; F31.9 Bipolar disorder, unspecified; E11.621 Type 2 diabetes mellitus with foot ulcer; L97.522 Non-pressure chronic ulcer of other part of left foot with fat layer exposed
CPT/HCPCS: 36415; 71045; 73620; 76881; 80048; 80053; 80202; 80306; 80320; 81000; 82010; 82947; 83605; 83735; 84100; 85025; 85379; 85610; 85730; 86141; 87040; 87070; 87077; 87081; 87205; 94640; 94760

== ENCOUNTER 2022-07-27 15:28 | Emergency (ER) | payer MEDICARE, MEDICAID | END 2022-07-27 15:34 | disposition left against medical advice (07) | LOC: EDUNIT# 15:28 → ER 15:31 | DX: R73.9 Hyperglycemia, unspecified (principal) | CPT/HCPCS: 99281 ==

== ENCOUNTER 2022-08-07 08:23 | Emergency (ER) | payer MEDICARE, MEDICAID ==
[~2022-08-07] VITALS: Ht 160 cm; Wt 58.9 kg
[2022-08-07 08:26] VITALS: BP 130/85
--- NOTE | 2022-08-07 08:41 | ED Lower Extremity ---
General Chief Complaint: Lower Extremity Stated Complaint: SWOLLEN LT LEG Source: patient, EMS Exam Limitations: no limitations History of Present Illness Date Seen by Provider: August 07, 2022 Time Seen by Provider: 08:24 Initial Comments 46-year-old female presents via EMS for left lower extremity swelling. She does not know how long its been there. She was able to walk with a cane states she has significant pain. She has severe diabetes and various other medical comorbidities and states she is not taking any of her medications. She has not done so for months per her report. She cannot tell me exactly for how long. She denies any fevers or chills. Approximately 10 minutes into her stay she screams that "I am fucking hungry." She then becomes angry, aggressive towards myself and the staff. I went in and spoke with her and advised her that her medical safety was her priority at this time and as soon as we get everything settled we can get her some food. She states "I am not going to fucking repeat myself." I advised her that we would not tolerate progression or vulgarity towards the staff. She states "then I will just fucking leave." I advised that she was welcome to leave if she wanted to we were happy to take care of her as long as she was not verbally or physically abusive to the staff. He states understanding and wishes to leave. She has been medically screened and has no obvious emergent condition at this time. She declines any further testing. I did advise her that she was welcome to come back for further evaluation should she change her mind. She states understanding. I did warn her that leaving AGAINST MEDICAL ADVICE risks include significant worsening of her leg swelling, ischemia or . I did do a Doppler prior to her leaving and she has good DP and PT pulses. All other systems reviewed and negative except documented per HPI. Voice recognition software was used to help create this chart Allergies and Home Medications Allergies Coded Allergies: levofloxacin (Verified Allergy, Unknown, 06/21/14) sulfamethoxazole (Unverified Allergy, Unknown, 06/21/14) trimethoprim (Unverified Allergy, Unknown, 06/21/14) Patient Home Medication List Home Medication List Reviewed: Yes Paliperidone Palmitate (Invega Sustenna) 234 Mg/1.5 Ml Syringe, 234 MG IM MONTHLY, (Reported) Entered as Reported by: HEATHER GOTTI on 04/26/22 1232 Review of Systems Constitutional: see HPI Past Zwvvjrm-Dcbeaq-Ozvwnc Hx Patient Social History Tobacco Use?: Yes Tobacco type used: Cigarettes Smoking Status: Current Everyday Smoker Substance use?: Yes Substance type: Methamphetamine Alcohol Use?: No Pt feels they are or have been: No Immunizations Up To Date Tetanus Booster (TDap): Unknown Seasonal Allergies Seasonal Allergies: No Past Medical History Surgery/Hospitalization HX: Partial Hysterectomy/Spine Surgery/Cholecystectomy Surgeries: Yes (STENT IN R URETER, BACK SURGERY, SUSANA FILTER) Gallbladder, Hysterectomy, Orthopedic, Renal, Tubal Ligation Respiratory: Yes (NO CPAP) Asthma, Sleep Apnea, COPD Currently Using CPAP: No Currently Using BIPAP: No Cardiac: Yes (DVT LEFT LEG; CHRONIC VENOUS INSUFFICIENCY) Chronic Edema/Swelling, Coronary Artery Disease, Deep Vein Thrombosis Neurological: Yes Neuropathy 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 Disorders: No 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 Sexually Transmitted Disease: No HIV/AIDS: No Genitourinary: Yes Kidney Stones Gastrointestinal: Yes Gastroesophageal Reflux Musculoskeletal: Yes (CHRONIC LEG PAIN--L>R) Arthritis, Chronic Back Pain Endocrine: Yes Diabetes, Insulin dep HEENT: No Loss of Vision: Denies Hearing Impairment: Denies Cancer: No Psychosocial: Yes Anxiety, Suicide Attempts, Bipolar, Depression Integumentary: Yes (VENOUS STASIS CHANGES TO LEGS-LEFT > RIGHT) Blood Disorders: Yes (HX OF BLOOD CLOTS) Adverse Reaction/Blood Tranf: No Family Medical History Reviewed Nursing Family Hx Diabetes mellitus 19 FATHER EMPHYSEMA 19 FATHER EPIEPSY G8 SISTER Hypertension 19 MOTHER STROKE 19 MOTHER No Family History of: Asthma No Pertinent Family Hx, Diabetes, Hypertension Physical Exam Vital Signs Capillary Refill : Height, Weight, BMI Height: 5'7.00" Weight: 190lbs. 3.2oz. [id number]; 24.48 BMI Method:Stated General Appearance: WD/WN, no apparent distress HEENT: normal ENT inspection, pharynx normal Neck: non-tender, full range of motion, supple, normal inspection Cardiovascular: regular rate, rhythm, no murmur Respiratory: chest non-tender, lungs clear, normal breath sounds, no respiratory distress, no accessory muscle use Gastrointestinal: normal bowel sounds, non tender, soft, no organomegaly Back: normal inspection, no CVA tenderness, no vertebral tenderness Hips: bilateral hip non-tender, bilateral hip normal inspection, bilateral hip normal range of motion Legs: left leg pain (Significant swelling to the left lower extremity from the mid thigh distally. There is significant venous stasis type discoloration. She has a wound to the plantar surface beneath her little toe that appears chronic. No evidence for acute infection palpable pulses PT and DP are intact), left leg swelling Knees: bilateral knee non-tender, bilateral knee normal inspection, bilateral knee normal range of motion Feet: right foot non-tender, right foot normal inspection, right foot normal range of motion; left foot swelling Neurologic/Psychiatric: alert, oriented x 3 Skin: other (Venous stasis changes left lower extremity.) Departure Communication (Admissions) Patient was verbally aggressive with the staff. I went and advised her we are happy to take care of her about we would not tolerate verbal aggression. She then gets mad and decides to leave as per the HPI. Advised risks include up to , disability, vascular compromise of her leg. She states understanding again requests to leave. She stormed out AGAINST MEDICAL ADVICE. I did advise prior to leaving that she could come back for further evaluation. She states understanding. She is alert, oriented and has a capacity make all medical decisions. Impression Primary Impression: Left leg swelling Disposition: AGAINST MEDICAL ADVICE Condition: Against Medical Advice Departure-Patient Inst. Referrals: [facility] (PCP/Family) Primary Care Physician ARIELLE MONROY DO August 07, 2022 08:41
== END 2022-08-07 08:39 | disposition left against medical advice (07) ==
LOC: EDUNIT# 08:23 → ER 08:24
DX: R22.42 Localized swelling, mass and lump, left lower limb (principal); F17.210 Nicotine dependence, cigarettes, uncomplicated; E11.40 Type 2 diabetes mellitus with diabetic neuropathy, unspecified; Z79.4 Long term (current) use of insulin; Z86.718 Personal history of other venous thrombosis and embolism
CPT/HCPCS: 99281

== ENCOUNTER 2022-08-12 10:39 | Inpatient (IN) | payer MEDICARE, MEDICAID ==
[~2022-08-12] VITALS: Ht 167 cm; Wt 67.5 kg
--- NOTE | 2022-08-12 10:58 | ED General ---
General Chief Complaint: Lower Extremity Stated Complaint: LOWER EXTREMITY ISSUES Nursing Triage Note: PT ARRIVED PER EMS, PT IS VERY UNKEMPT, PT STATES STAYING IN PLACE THAT IS NOT VERY GOOD. PT HAS VERY SWOLLEN L FOOT W LARGE OPEN WOUNDS ON BOTTOM OF FOOT, AND BLISTER BETWEEN 4 AND 5 TOE. PEDAL PULSES INTACT. PT IS DIABETIC BUT HAS HAD NO TX. PT USES METH UNSURE OF LAST USE. PT IS VERY POOR HISTORIAN. PT IS UNABLE TO RECALL ANY RECENT EVENTS, BATHING OR EATING. Source of Information: Patient, EMS, Old Records Exam Limitations: Other (Poor historian, substance abuse) History of Present Illness Date Seen by Provider: Aug 12, 2022 Time Seen by Provider: 10:40 Initial Comments This 56-year-old woman presents to the emergency room via EMS after she was seen walking along the road and appeared unstable. She almost fell multiple times. She has a longstanding wound on her left foot. She is an uncontrolled diabetic. She presently is not being seen for her diabetes and does not take any medications. She has a deep wound on the distal plantar left foot as well as ed rod and erythema throughout the foot and extending up to the knee. Pedal pulses are palpable bilaterally and toes are pink. Patient admits to methamphetamine use but does not recall when the last use was. She is heavily soiled and odorous. She does have a place to live but states, "it is a horrible place to live." Patient has history of noncompliance and leaving AMA on prior encounters and hospital visits. Allergies and Home Medications Allergies Coded Allergies: levofloxacin (Verified Allergy, Unknown, 06/21/14) sulfamethoxazole (Unverified Allergy, Unknown, 06/21/14) trimethoprim (Unverified Allergy, Unknown, 06/21/14) Patient Home Medication List Home Medication List Reviewed: Yes No Active Prescriptions or Reported Meds Review of Systems Review of Systems Constitutional: see HPI EENTM: no symptoms reported Respiratory: no symptoms reported Cardiovascular: no symptoms reported Gastrointestinal: no symptoms reported Past Gharaee-Fncbzn-Jxpdlx Hx Patient Social History Substance use?: Yes Substance type: Methamphetamine Immunizations Up To Date Tetanus Booster (TDap): Unknown Seasonal Allergies Seasonal Allergies: No Past Medical History Surgery/Hospitalization HX: Partial Hysterectomy/Spine Surgery/Cholecystectomy Surgeries: Yes (STENT IN R URETER, BACK SURGERY, SUSANA FILTER) Gallbladder, Hysterectomy, Orthopedic, Renal, Tubal Ligation Respiratory: Yes (NO CPAP) Asthma, Sleep Apnea, COPD Currently Using CPAP: No Currently Using BIPAP: No Cardiac: Yes (DVT LEFT LEG; CHRONIC VENOUS INSUFFICIENCY) Chronic Edema/Swelling, Coronary Artery Disease, Deep Vein Thrombosis Neurological: Yes Neuropathy 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 Sexually Transmitted Disease: No HIV/AIDS: No Genitourinary: Yes Kidney Stones Gastrointestinal: Yes Gastroesophageal Reflux Musculoskeletal: Yes (CHRONIC LEG PAIN--L>R, osteomyelitis left foot) Arthritis, Chronic Back Pain Endocrine: Yes Diabetes, Insulin dep (noncompliant) HEENT: No Loss of Vision: Denies Hearing Impairment: Denies Cancer: No Psychosocial: Yes Anxiety, Suicide Attempts, Bipolar, Depression Integumentary: Yes (VENOUS STASIS CHANGES TO LEGS-LEFT > RIGHT) Blood Disorders: Yes (HX OF BLOOD CLOTS) Adverse Reaction/Blood Tranf: No Family Medical History Diabetes mellitus 19 FATHER EMPHYSEMA 19 FATHER EPIEPSY G8 SISTER Hypertension 19 MOTHER STROKE 19 MOTHER No Family History of: Asthma No Pertinent Family Hx, Diabetes, Hypertension Physical Exam-Suspected Sepsis Physical Exam Vital Signs Vital Signs - First Documented 08/12/22 08/14/22 10:40 06:37 Temp 37.0 Pulse 107 Resp 18 B/P (MAP) 118/66 (83) Pulse Ox 94 O2 Delivery Room Air O2 Flow Rate 0.00 Capillary Refill : Less Than 3 Seconds Blood Pressure Mean: 83 Height, Weight, BMI Height: 5'7.00" Weight: 190lbs. 3.2oz. 86.674968ii; 24.00 BMI Method:Stated General Appearance: No Apparent Distress, WD/WN, Other (heavily soiled skin and clothing) HEENT: PERRL/EOMI, Normal ENT Inspection Neck: Normal Inspection Respiratory: Lungs Clear, Normal Breath Sounds, No Accessory Muscle Use Cardiovascular: Regular Rate, Rhythm, No Murmur Gastrointestinal: Non Tender, Soft Extremity: Other (Marked edema and erythema throughout the left lower leg and foot. Deep ulcer on the distal left foot. Positive pedal pulses bilaterally. Toes remain pink.) Neurologic/Psychiatric: Alert, No Motor/Sensory Deficits, Other (irritable moo d) Skin: other (as above) Focused Exam Lactate Level 08/12/22 11:07: Lactic Acid Level 2.83*H 08/12/22 12:56: Lactic Acid Level 2.99*H Lactic Acid Level Progress/Results/Core Measures Suspected Sepsis SIRS Temperature: Pulse: 107 Respiratory Rate: 18 Laboratory Tests 08/12/22 10:50: White Blood Count 11.1H 08/13/22 13:55: White Blood Count 12.2H 08/14/22 05:03: White Blood Count 11.3H Blood Pressure 118 /66 Mean: 83 08/12/22 11:07: Lactic Acid Level 2.83*H 08/12/22 12:56: Lactic Acid Level 2.99*H Laboratory Tests 08/12/22 10:50: Creatinine 1.04, INR Comment 1.0, Platelet Count 198, Total Bilirubin 0.7 08/13/22 13:55: Creatinine 0.67, Platelet Count 260, Total Bilirubin 0.3 08/14/22 05:03: Creatinine 0.61, Platelet Count 262, Total Bilirubin 0.3 Results/Orders Lab Results Laboratory Tests Test 08/12/22 12:56 08/12/22 15:18 08/12/22 20:06 08/13/22 05:13 Range/Units Lactic Acid Level 2.99 *H 0.50-2.00 MMOL/L Glucometer 380 H 256 H 99 70-110 MG/DL Test 08/13/22 10:53 08/13/22 13:55 08/13/22 15:19 08/13/22 21:17 Range/Units Glucometer 124 H 211 H 194 H 70-110 MG/DL White Blood Count 12.2 H 4.3-11.0 10^3/uL Red Blood Count 4.18 3.80-5.11 10^6/uL Hemoglobin 11.3 #L 11.5-16.0 g/dL Hematocrit 34 L 35-52 % Mean Corpuscular Volume 81 80-99 fL Mean Corpuscular Hemoglobin 27 25-34 pg Mean Corpuscular Hemoglobin Concent 33 32-36 g/dL Red Cell Distribution Width 14.6 H 10.0-14.5 % Platelet Count 260 130-400 10^3/uL Mean Platelet Volume 9.5 9.0-12.2 fL Immature Granulocyte % (Auto) 1 % Neutrophils (%) (Auto) 77 H 42-75 % Lymphocytes (%) (Auto) 15 12-44 % Monocytes (%) (Auto) 7 0-12 % Eosinophils (%) (Auto) 1 0-10 % Basophils (%) (Auto) 0 0-10 % Neutrophils # (Auto) 9.4 H 1.8-7.8 10^3/uL Lymphocytes # (Auto) 1.9 1.0-4.0 10^3/uL Monocytes # (Auto) 0.8 0.0-1.0 10^3/uL Eosinophils # (Auto) 0.1 0.0-0.3 10^3/uL Basophils # (Auto) 0.0 0.0-0.1 10^3/uL Immature Granulocyte # (Auto) 0.1 0.0-0.1 10^3/uL Sodium Level 136 135-145 MMOL/L Potassium Level 3.2 L 3.6-5.0 MMOL/L Chloride Level 106 98-107 MMOL/L Carbon Dioxide Level 22 21-32 MMOL/L Anion Gap 8 5-14 MMOL/L Blood Urea Nitrogen 11 7-18 MG/DL Creatinine 0.67 0.60-1.30 MG/DL Estimat Glomerular Filtration Rate 102 BUN/Creatinine Ratio 16 Glucose Level 216 H 70-105 MG/DL Mean Blood Glucose 441 H <=126 mg/dL Hemoglobin A1c 17.0 H 4.0-5.6 % Calcium Level 8.1 L 8.5-10.1 MG/DL Corrected Calcium 9.4 8.5-10.1 MG/DL Total Bilirubin 0.3 0.1-1.0 MG/DL Aspartate Amino Transf (AST/SGOT) 17 5-34 U/L Alanine Aminotransferase (ALT/SGPT) 9 0-55 U/L Alkaline Phosphatase 83 40-136 U/L Total Protein 6.4 6.4-8.2 GM/DL Albumin 2.4 L 3.2-4.5 GM/DL Test 08/14/22 05:03 08/14/22 11:19 08/14/22 12:23 Range/Units White Blood Count 11.3 H 4.3-11.0 10^3/uL Red Blood Count 4.10 3.80-5.11 10^6/uL Hemoglobin 11.1 L 11.5-16.0 g/dL Hematocrit 33 L 35-52 % Mean Corpuscular Volume 82 80-99 fL Mean Corpuscular Hemoglobin 27 25-34 pg Mean Corpuscular Hemoglobin Concent 33 32-36 g/dL Red Cell Distribution Width 14.8 H 10.0-14.5 % Platelet Count 262 130-400 10^3/uL Mean Platelet Volume 9.8 9.0-12.2 fL Immature Granulocyte % (Auto) 0 % Neutrophils (%) (Auto) 67 42-75 % Lymphocytes (%) (Auto) 25 12-44 % Monocytes (%) (Auto) 7 0-12 % Eosinophils (%) (Auto) 1 0-10 % Basophils (%) (Auto) 0 0-10 % Neutrophils # (Auto) 7.5 1.8-7.8 10^3/uL Lymphocytes # (Auto) 2.8 1.0-4.0 10^3/uL Monocytes # (Auto) 0.8 0.0-1.0 10^3/uL Eosinophils # (Auto) 0.1 0.0-0.3 10^3/uL Basophils # (Auto) 0.0 0.0-0.1 10^3/uL Immature Granulocyte # (Auto) 0.1 0.0-0.1 10^3/uL Sodium Level 137 135-145 MMOL/L Potassium Level 3.0 L 3.6-5.0 MMOL/L Chloride Level 107 98-107 MMOL/L Carbon Dioxide Level 23 21-32 MMOL/L Anion Gap 7 5-14 MMOL/L Blood Urea Nitrogen 10 7-18 MG/DL Creatinine 0.61 0.60-1.30 MG/DL Estimat Glomerular Filtration Rate 104 BUN/Creatinine Ratio 16 Glucose Level 88 70-105 MG/DL Glucometer 98 136 H 70-110 MG/DL Calcium Level 8.2 L 8.5-10.1 MG/DL Corrected Calcium 9.6 8.5-10.1 MG/DL Total Bilirubin 0.3 0.1-1.0 MG/DL Aspartate Amino Transf (AST/SGOT) 16 5-34 U/L Alanine Aminotransferase (ALT/SGPT) 9 0-55 U/L Alkaline Phosphatase 79 40-136 U/L Total Protein 6.3 L 6.4-8.2 GM/DL Albumin 2.3 L 3.2-4.5 GM/DL My Orders Medications Given in ED Vital Signs/I&O 6/6/23 6/6/23 6/6/23 6/6/23 01:00 03:19 06:37 07:36 Temp 37.4 Pulse 101 96 85 Resp 16 B/P (MAP) 114/60 (78) Pulse Ox 94 94 O2 Delivery Room Air Room Air O2 Flow Rate 0.00 08/14/22 08/14/22 08/14/22 07:37 08:00 12:00 Temp 36.5 36.6 Pulse 89 73 Resp 16 16 B/P (MAP) 109/53 (71) 127/75 (92) Pulse Ox 93 100 O2 Delivery Room Air Room Air Room Air Capillary Refill : Less Than 3 Seconds Blood Pressure Mean: 83 Progress Note : Time: 12:12 Progress Note Patient was interviewed and examined upon arrival. Report was received from EMS. I reviewed some records from prior visits. Labs were obtained, reviewed, and interpreted by me. WBC was slightly elevated. CBC was otherwise relatively unremarkable. Fingerstick blood sugar was 496. Patient is being hydrated with 2 L of IV fluid and 5 units of insulin subcu has been administered. Chemistry was reviewed. She has pseudohyponatremia from hyperglycemia. CO2 was low at 18. Lactic acid was 2.83. Renal function was unremarkable. CRP was markedly elevated at approximately 27. X-rays were obtained of the foot and tib-fib. There is evidence of soft tissue gas suggestive of gangrene in the distal foot and osteomyelitis in the distal bones on the lateral side per my interpretation. Radiologist reports are pending. Dr. De La Cruz has been consulted as general surgeon on-call and presented to the ER to evaluate her wounds. He is agreeable to Zosyn and vancomycin. Surgery for debridement or partial amputation will eventually be necessary after blood sugars controlled and she has received some antibiotic therapy. Case was discussed with Dr. Power, hospitalist on-call for [facility]. She is agreeable to admission. D-dimer was notably elevated. A dose of Lovenox is being administered for presumptive treatment of DVT until ultrasound can be available. Patient was somewhat disagreeable and suggesting she would leave AMA. She wanted food. Diet was ordered. Xanax was given to help her remain calm. Richardson catheter was placed as she is not reasonably mobile at this time. Diagnostic Imaging Diagonstic Imaging: Xray Plain Films/CT/US/NM/MRI: chest Comments NAME: KATARZYNA WEAVER [facility] REC#: [id number] PT STATUS: ADM IN : 1965 PHYSICIAN: ROYCE KNUTSON MD ADMIT DATE: 08/12/22 Signed Date of Exam:08/12/22 CHEST 1 VIEW, AP/PA ONLY INDICATION: Dyspnea with sepsis. COMPARISON: 05/11/2022. DISCUSSION: Single portable upright view of the chest was obtained. Changes of chronic lung disease are stable. No new consolidation. No pleural fluid or pneumothorax. No osseous abnormality. Normal heart size. IMPRESSION: No acute cardiopulmonary process. Dictated by: Dictated on workstation # [id number] Dict: 08/12/22 1208 Trans: 08/12/22 1455 HELEN [id number] Interpreted by: RAIN RIZZO MD Electronically signed by: RAIN RIZZO MD 08/12/221450 Diagonstic Imaging: Xray Plain Films/CT/US/NM/MRI: other (left foot) Comments NAME: KATARZYNA WEAVER [facility] REC#: [id number] PT STATUS: ADM IN : 1965 PHYSICIAN: ROYCE KNUTSON MD ADMIT DATE: 08/12/22 Signed Date of Exam:08/12/22 FOOT, LEFT, 2 VIEW INDICATION: Left foot injury with pain and swelling. COMPARISON: 05/10/2022. DISCUSSION: Two views of the left foot were obtained. Soft tissue gas noted between and posterior to the head of the 4th and 5th metatarsals, new from the prior exam. This may represent changes from penetrating trauma or infection. Recommend clinical correlation. No bone destruction identified. There is a questionable fracture involving the base of the left 4th proximal phalanx. No dislocation. No radiopaque foreign body. Calcaneal enthesophytes are noted. IMPRESSION: 1. Likely subtle nondisplaced intraarticular fracture involving the base of the left 4th proximal phalanx. 2. Soft tissue gas and swelling between the 4th and 5th toes which is of uncertain etiology, likely post traumatic or infectious. Dictated by: Dictated on workstation # [id number] Dict: 08/12/22 1215 Trans: 08/12/22 1455 HELEN [id number] Interpreted by: RAIN RIZZO MD Electronically signed by: RAIN RIZZO MD 08/12/22 1457 Diagonstic Imaging: Xray Plain Films/CT/US/NM/MRI: leg Comments NAME: KATARZYNA WEAVER [facility] REC#: [id number] PT STATUS: ADM IN : 1965 PHYSICIAN: ROYCE KNUTSON MD ADMIT DATE: 08/12/22 Signed Date of Exam:08/12/22 TIBIA/FIBULA, LEFT, 2 VIEWS INDICATION: Left lower leg pain. COMPARISON: None. DISCUSSION: Four views of the left tibia and fibula were obtained. Moderately advanced degenerative disease noted within the left knee. Diffuse soft tissue calcifications are noted. Diffuse soft tissue swelling. No soft tissue gas. No foreign body. No fracture or dislocation. IMPRESSION: Diffuse soft tissue swelling of the left lower leg. No osseous abnormality. Dictated by: Dictated on workstation # [id number] Dict: 08/12/22 1214 Trans: 08/12/22 1451 [id number] Interpreted by: RAIN RIZZO MD Electronically signed by: RAIN RIZZO MD 08/12/22 1451 Departure Communication (Admissions) Time/Spoke to Admitting Phy: 12:10 Dr. Power Time/Spoke to Consulting Phy: 10:56 Dr. De La Cruz Impression Primary Impression: Osteomyelitis of left foot Qualified Codes: M86.9 - Osteomyelitis, unspecified Additional Impressions: Cellulitis of left leg Uncontrolled diabetes mellitus Qualified Codes: E11.65 - Type 2 diabetes mellitus with hyperglycemia Non-compliant behavior Hyperglycemia Disposition: ADMITTED INPATIENT Condition: Improved Admissions Decision to Admit Reason: Admit from ER (General) Decision to Admit/Date: Aug 12, 2022 Time/Decision to Admit Time: 10:56 Departure-Patient Inst. Referrals: [facility] (PCP/Family) Primary Care Physician Scripts No Active Prescriptions or Reported Meds Copy Copies To 1: [facility]/ROYCE ORNELAS MD Aug 12, 2022 10:58
[2022-08-12] MEDS ORDERED: NS IV 1000 ML 1,000 ML IV SCH (11:00)
[2022-08-12 11:03] LABS: BASOPHILS % (AUTO) 0 % (0-10)
[2022-08-12 11:05] LABS: EOSINOPHILS # (AUTO) 0.1 10^3/uL (0.0-0.3); EOSINOPHILS % (AUTO) 1 % (0-10); HEMATOCRIT 46 % (35-52); LYMPHOCYTES % (AUTO) 9 % (12-44); MEAN CORPUSCULAR HEMOGLOBIN 27 pg (25-34); MEAN CORPUSCULAR HGB CONC 33 g/dL (32-36); MEAN CORPUSCULAR VOLUME 82 fL (80-99); MEAN PLATELET VOLUME 10.1 fL (9.0-12.2); MONOCYTES # (AUTO) 0.6 10^3/uL (0.0-1.0); MONOCYTES % (AUTO) 5 % (0-12); NEUTROPHILS # (AUTO) 9.3 10^3/uL (1.8-7.8); NEUTROPHILS % (AUTO) 84 % (42-75); PLATELET COUNT 198 10^3/uL (130-400); WHITE BLOOD COUNT 11.1 10^3/uL (4.3-11.0)
[2022-08-12 11:07] LABS: SMEAR SCAN COMMENT YES
[2022-08-12 11:11] LABS: ALBUMIN 3.5 GM/DL (3.2-4.5); CHLORIDE 92 MMOL/L (98-107); POTASSIUM 4.1 MMOL/L (3.6-5.0); PROTHROMBIN TIME PATIENT 13.8 SEC (12.2-14.7)
[2022-08-12 11:12] LABS: SODIUM 126 MMOL/L (135-145)
[2022-08-12 11:13] LABS: CALCIUM 9.9 MG/DL (8.5-10.1)
[2022-08-12 11:14] LABS: TOTAL PROTEIN 9.2 GM/DL (6.4-8.2)
[2022-08-12 11:15] LABS: CARBON DIOXIDE 18 MMOL/L (21-32)
[2022-08-12 11:16] LABS: BILIRUBIN,TOTAL 0.7 MG/DL (0.1-1.0)
[2022-08-12 11:17] LABS: ALKALINE PHOSPHATASE 130 U/L (40-136)
[2022-08-12 11:18] LABS: CREATININE SERUM 1.04 MG/DL (0.60-1.30); GFR ESTIMATED 63; GLUCOSE 470 MG/DL (70-105)
[2022-08-12 11:19] LABS: BUN/CREATININE RATIO 14
[2022-08-12 11:21] LABS: ALANINE AMINOTRANSFERASE 13 U/L (0-55)
[2022-08-12 11:22] LABS: FIBRIN DEGRADATION PRODUCTS 3.4 UG/ML (0.00-0.49)
[2022-08-12] MEDS ORDERED: PIPERACILLIN SODIUM/TAZOBACTAM 4.5 GM in NS (IVPB) 100 ML IV ONE (11:30)
[2022-08-12] MEDS ORDERED: inSUlin (REGULAR) HUMAN 1 UNIT/0.01 ML (CHARGE PER UNIT) SC ONE (11:30)
[2022-08-12] MEDS ORDERED: VANCOMYCIN INJECTION 750 MG in NS (IVPB) 100 ML IV ONE (11:30)
[2022-08-12 12:03] LABS: BILIRUBIN,URINE NEGATIVE (NEGATIVE); CLARITY,URINE CLOUDY; COLOR,URINE YELLOW; GLUCOSE, URINE (UA) 3+ (NEGATIVE); KETONES,URINE 1+ (NEGATIVE); LEUKOCYTE ESTERASE ,URINE 1+ (NEGATIVE); NITRITE,URINE NEGATIVE (NEGATIVE); PROTEIN,URINE 1+ (NEGATIVE)
--- NOTE | 2022-08-12 12:11 | Diagnostic Imaging Report ---
INDICATION: Dyspnea with sepsis. COMPARISON: 05/11/2022. DISCUSSION: Single portable upright view of the chest was obtained. Changes of chronic lung disease are stable. No new consolidation. No pleural fluid or pneumothorax. No osseous abnormality. Normal heart size. IMPRESSION: No acute cardiopulmonary process. Dictated by: Dictated on workstation # [id number]
[2022-08-12 12:15] LABS: BACTERIA,URINE LARGE /HPF; YEAST,URINE LARGE /HPF
[2022-08-12] MEDS ORDERED: ALPRAZolam 0.25 MG (XANAX) TAB PO ONE (12:15)
[2022-08-12] MEDS ORDERED: ENOXAPARIN 80 MG/0.8 ML (LOVENOX) SYR SC ONE (12:15)
[2022-08-12 12:17] LABS: AMPHETAMINE SCREEN, URINE POSITIVE (NEGATIVE); BENZODIAZEPINES SCREEN URINE NEGATIVE (NEGATIVE); COCAINE SCREEN URINE NEGATIVE (NEGATIVE)
[2022-08-12 12:18] LABS: BARBITURATE SCREEN URINE NEGATIVE (NEGATIVE); CANNABINOID SCREEN, URINE NEGATIVE (NEGATIVE); METHADONE STAT NEGATIVE (NEGATIVE); OPIATE SCREEN URINE NEGATIVE (NEGATIVE); OXYCODONE STAT NEGATIVE (NEGATIVE); PROPOXYPHENE STAT NEGATIVE (NEGATIVE); TRICYCLIC ANTIDEPRESSANTS SCRE NEGATIVE (NEGATIVE)
--- NOTE | 2022-08-12 12:18 | Diagnostic Imaging Report ---
INDICATION: Left lower leg pain. COMPARISON: None. DISCUSSION: Four views of the left tibia and fibula were obtained. Moderately advanced degenerative disease noted within the left knee. Diffuse soft tissue calcifications are noted. Diffuse soft tissue swelling. No soft tissue gas. No foreign body. No fracture or dislocation. IMPRESSION: Diffuse soft tissue swelling of the left lower leg. No osseous abnormality. Dictated by: Dictated on workstation # [id number]
--- NOTE | 2022-08-12 12:20 | Diagnostic Imaging Report ---
INDICATION: Left foot injury with pain and swelling. COMPARISON: 05/10/2022. DISCUSSION: Two views of the left foot were obtained. Soft tissue gas noted between and posterior to the head of the 4th and 5th metatarsals, new from the prior exam. This may represent changes from penetrating trauma or infection. Recommend clinical correlation. No bone destruction identified. There is a questionable fracture involving the base of the left 4th proximal phalanx. No dislocation. No radiopaque foreign body. Calcaneal enthesophytes are noted. IMPRESSION: 1. Likely subtle nondisplaced intraarticular fracture involving the base of the left 4th proximal phalanx. 2. Soft tissue gas and swelling between the 4th and 5th toes which is of uncertain etiology, likely post traumatic or infectious. Dictated by: Dictated on workstation # [id number]
[2022-08-12] MEDS ORDERED: VANCOMYCIN INJECTION 500 MG in NS (IVPB) 100 ML IV ONE (12:30)
[2022-08-12] MEDS ORDERED: VANCOMYCIN 1250 MG/NS 250 ML PREMIX IV ONE (12:30)
--- NOTE | 2022-08-12 13:08 | CONSULTATION REPORT ---
DATE OF SERVICE: 08/12/2022 ATTENDING DIRECTOR OCCUPATIONAL: [facility]. ADMITTING PHYSICIAN: Dr. Billie Power. HISTORY OF PRESENT ILLNESS: The patient is a 56-year-old female who is brought in by EMS due to a swollen left foot and left foot pain. The patient is a very poor historian. The majority of information was accrued from previous electronic medical records as well as the emergency room physician. The patient appears to be homeless or lives in a very poor condition. She has a number of medical problems including a history of chronic venous insufficiency, history of DVT, insulin-dependent diabetes, COPD, coronary artery disease and is an active user of methamphetamine. We were consulted for evaluation of the left foot and there is chronic venous insufficiency of bilateral lower extremities; however, much more significant on the left side with redness and erythema extending into the ankle. There is also significant pedal and ankle edema. There is an open wound on the plantar surface with redness and erythema, starting at the region of the forefoot and extending to the dorsal aspect. She states that this is tender to palpation. She does have good arterial pulses; however, does likely have microvascular disease due to her history of diabetes and methamphetamine use. This area will need to be debrided once medically stable, PAST MEDICAL HISTORY: Chronic venous insufficiency, bilateral lower extremity edema, history of deep vein thrombosis, COPD, hypertension, insulin-dependent diabetes, gastroesophageal reflux disease, history of nephrolithiasis. PAST SURGICAL HISTORY: Partial hysterectomy, spinal surgery, laparoscopic cholecystectomy, IVC filter placement, right ureteral stent placement. ALLERGIES: LEVOFLOXACIN, BACTRIM. MEDICATIONS: Haloperidol, paliperidone palmitate 234 mg IM monthly. SOCIAL HISTORY: Positive for methamphetamine use as well as cigarette smoking. FAMILY HISTORY: Noncontributory. VITAL SIGNS: Temperature 37.0, blood pressure 118/66, pulse 107, respirations 18, pulse ox 94% on room air. REVIEW OF SYSTEMS: This is a very disheveled-appearing female who does answer some questions appropriately; however, is a very poor historian and there is also some level of confusion. She does not report any shortness of breath and difficulty breathing. No cough or sputum production. No chest pain, palpitations or diaphoresis. No nausea or vomiting. No known diarrhea or constipation. She does not report any fever, no chills as well as no recent inadvertent weight loss. She is complaining mostly swelling and pain of the left foot. All other review of symptoms negative. PHYSICAL EXAMINATION: CHEST: Few scattered wheezes, no rhonchi bilaterally. HEART: Regular. No murmurs. EXTREMITIES: +2/3 left lower extremity edema, +1/3 right lower extremity edema. Negative Homans sign bilaterally. Left pedal edema with forfoot redness, erythema and open wound. HEENT: No scleral icterus. No cervical lymphadenopathy. ABDOMEN: Soft, nontender, nondistended. SKIN: There is left pedal edema with overlying redness and erythema of the lateral aspect of the left foot with an open wound of the plantar aspect of the forefoot between the fourth and fifth metatarsal with surrounding erythema which extends to the dorsal aspect of the foot. Palpable posterior tibial and dorsalis pedis pulses bilaterally. LABORATORY DATA: WBC 11.1, hemoglobin 15.0, hematocrit 46, platelets 198, BUN 15, creatinine 1.04, blood sugar 496. ASSESSMENT AND PLAN: A 56-year-old female with soft tissue necrosis of the left foot due to extensive untreated medical conditions including hypertension, diabetes and active chronic methamphetamine use with likely microvascular disease with an open wound along the plantar surface of the left lateral foot with surrounding redness and erythema extending toward the dorsal aspect of the foot. She will be admitted and medically treated to get her blood sugars under control as well as for IV antibiotics and IV fluids. Once medically stable, she will need further diagnostic imaging to rule out osteomyelitis, which would likely encompass a left foot MRI. Once this is established, we will then plan our strategy for either debridement or formal resection if indicated. Job ID: [id number] DocumentID: [id number] Dictated Date: 08/12/2022 12:25:10 Pin Inserter Date: 08/12/2022 13:05:00 Dictated By: MICKY KUMAR MD [facility] CENTERMarlo
[2022-08-12] MEDS ORDERED: ANTACID SUSP 30 ML UDC (MYLANTA) PO PRN (13:45)
[2022-08-12] MEDS ORDERED: BISACODYL 10 MG SUPP (DULCOLAX) PR PRN (13:45)
[2022-08-12] MEDS ORDERED: ACETAMINOPHEN 325 MG TABLET PO PRN (13:45)
[2022-08-12] MEDS ORDERED: HYDROmorphone 2 MG/ML VIAL (DILAUDID) IV PRN (13:45)
[2022-08-12] MEDS ORDERED: ONDANSETRON 4 MG (ZOFRAN) ORAL DISSOLVE TAB PO PRN (13:45)
[2022-08-12] MEDS ORDERED: MELATONIN 3 MG TABLET PO PRN (13:45)
[2022-08-12] MEDS ORDERED: CALCIUM CARBONATE 500 MG (TUMS) TAB.CHEW PO PRN (13:45)
[2022-08-12] MEDS ORDERED: diphenhydrAMINE 50 MG/ML INJ (BENADRYL) IVP PRN (13:45)
[2022-08-12] MEDS ORDERED: diphenhydrAMINE 25 MG TAB (BENADRYL) PO PRN (13:45)
[2022-08-12] MEDS ORDERED: polyethylene glycoL POWDER 17 GM (MIRALAX) PACK PO PRN (13:45)
[2022-08-12] MEDS ORDERED: LACTULOSE SYRUP 10GM/15ML (ENULOSE) 30ML UDC PO PRN (13:45)
[2022-08-12] MEDS ORDERED: VANCOMYCIN INJECTION 0.1 MG in NS (IVPB) 250 ML IV SCH (13:45)
[2022-08-12] MEDS ORDERED: MILK OF MAGNESIA 400 MG/5 ML 30 ML UDC PO PRN (13:45)
[2022-08-12] MEDS ORDERED: ONDANSETRON 4 MG/2 ML (SDV) Z0FRAN IV PRN (13:45)
[2022-08-12 14:04] VITALS: BP 118/66
[2022-08-12] MEDS ORDERED: RT-ALBUTEROL SULF 2.5 MG/3 ML PRE-MIX VIAL INH PRN (14:15)
[2022-08-12 14:16] VITALS: BP 129/63
[2022-08-12] MEDS: NS IV 1000 ML 1,000 ML IV SCH ×2 (14:24→17:53)
[2022-08-12 15:20] VITALS: BP 108/55
[2022-08-12 15:22] VITALS: BP 108/55
[2022-08-12] MEDS: inSUlin ASPART (NovoLOG) 1 UNIT/0.01 ML (CHARGE PER UNIT) SC SCH ×2 (16:56→20:51)
[2022-08-12] MEDS: PIPERACILLIN SODIUM/TAZOBACTAM 4.5 GM in NS (IVPB) 100 ML IV SCH (17:54)
[2022-08-12 20:01] VITALS: BP 106/60
[2022-08-12] MEDS: SENNOSIDES 8.6 MG (SENOKOT) TAB PO SCH (20:51)
[2022-08-12] MEDS: LORazepam 0.5 MG (ATIVAN) TABLET PO PRN (20:51)
[2022-08-12] MEDS: DOCUSATE SODIUM 100 MG (COLACE) CAP PO SCH (20:51)
[2022-08-12 23:53] VITALS: BP 102/64
[2022-08-13] VITALS (7 sets, daily range): BP systolic 96–112; BP diastolic 50–70
[2022-08-13] MEDS: ENOXAPARIN 80 MG/0.8 ML (LOVENOX) SYR SC SCH ×2 (00:11→12:26)
[2022-08-13] MEDS: PIPERACILLIN SODIUM/TAZOBACTAM 4.5 GM in NS (IVPB) 100 ML IV SCH ×3 (02:13→19:53)
[2022-08-13] MEDS: inSUlin ASPART (NovoLOG) 1 UNIT/0.01 ML (CHARGE PER UNIT) SC SCH ×4 (05:18→21:37)
[2022-08-13] MEDS: NS IV 1000 ML 1,000 ML IV SCH ×2 (06:18→21:37)
[2022-08-13] MEDS: SENNOSIDES 8.6 MG (SENOKOT) TAB PO SCH ×2 (08:59→21:02)
[2022-08-13] MEDS: DOCUSATE SODIUM 100 MG (COLACE) CAP PO SCH ×2 (08:59→21:02)
--- NOTE | 2022-08-13 09:51 | Diagnostic Imaging Report ---
PROCEDURE: US Venous Lower Ext Parth. TECHNIQUE: Multiple real-time grayscale images were obtained over the lower extremities in various projections, bilaterally. Additional duplex Doppler and color Doppler images were also obtained. INDICATION: DVT and osteomyelitis of the left foot. FINDINGS: There is no evidence of right or left lower extremity DVT. Both lower extremity deep venous systems demonstrate normal compressibility with normal response to augmentation and Valsalva. No fluid collection or mass is detected. IMPRESSION: No evidence of right or left lower extremity DVT. Dictated by: Dictated on workstation # [id number]
[2022-08-13] MEDS ORDERED: VANCOMYCIN 1 GM/NS 250 ML IVPB IV SCH ×2 (12:30)
--- NOTE | 2022-08-13 13:15 | History & Physical ---
HPI History of Present Illness: 56 yo F with h/o poorly controlled DM that presents to ER with left foot wound. Patient is a poor historian and keeps closing her eyes and not wanting to answer questions. States that she has had the wound for a while. States that she is not taking any medications and has not seen a provider for a while. Moderate tend erness when examining her foot. She did not answer if she has had a wound on this foot previously. Source: patient Exam Limitations: other (Not wanting to answer questions.) Date seen by provider: Aug 13, 2022 Time Seen by Provider: 10:05 Attending Physician [facility] PCP Admitting Physician: Billie Power DO Attending Physician: Suni Navarro MD Consult Date of Admission Aug 12, 2022 at 13:07 Home Medications Home Medications Reviewed patient Home Medication Reconciliation performed by pharmacy medication reconciliations lead pharmacy technician and/or nursing. Patients Allergies have been reviewed. Allergies Coded Allergies: levofloxacin (Verified Allergy, Unknown, 06/21/14) sulfamethoxazole (Unverified Allergy, Unknown, 06/21/14) trimethoprim (Unverified Allergy, Unknown, 06/21/14) OET-Oxkdwq-Cgooim Hx Patient Social History 2nd Hand Smoke Exposure: No Recent Hopitalizations: No Alcohol Use?: Unable to obtain Substance type: Methamphetamine Immunizations Up To Date Tetanus Booster (TDap): Unknown Past Medical History Past medical history 1. Diabetes mellitus type II 2. Schizoaffective disorder 3. ADHD 4. Tobaccoism 5. Chronic venous insufficiency 6. History of recurring deep venous thrombosis Past surgical history 1. Cholecystectomy 2. Tubal ligation 3. Hysterectomy Family Medical History Significant Family History: No Pertinent Family Hx, Diabetes, Hypertension Family History: Diabetes mellitus 19 FATHER EMPHYSEMA 19 FATHER EPIEPSY G8 SISTER Hypertension 19 MOTHER STROKE 19 MOTHER No Family History of: Asthma Review of Systems (CHC) Constitutional: no symptoms reported; No chills, No fever EENTM: no symptoms reported; No mouth pain, No nose pain, No throat pain Respiratory: no symptoms reported; No cough, No dyspnea on exertion, No short of breath Cardiovascular: No chest pain; edema; No palpitations Gastrointestinal: no symptoms reported; No abdominal pain, No nausea, No vomiting Genitourinary: no symptoms reported; No dysuria, No frequency Musculoskeletal: joint swelling, muscle pain Skin: change in color, other (purulent drainage from left foot) Psychiatric/Neurological: Numbness, Paresthesia Reviewed Test Results Reviewed Test Results Lab Laboratory Tests Test 08/12/22 15:18 08/12/22 20:06 08/13/22 05:13 08/13/22 10:53 Range/Units Glucometer 380 H 256 H 99 124 H 70-110 MG/DL Physical Exam-(CHC) Physical Exam Vital Signs VS - Last 72 Hours, by Label 08/12/22 08/12/22 08/12/22 08/12/22 10:40 14:04 14:16 14:46 Temp 37.0 37.0 36.4 Pulse 107 107 104 103 Resp 18 18 B/P (MAP) 118/66 (83) 129/63 (85) Pulse Ox 94 94 96 O2 Delivery Room Air Room Air 08/12/22 08/12/22 08/12/22 08/12/22 15:06 15:20 15:22 19:00 Temp 36.5 36.5 Pulse 103 103 111 Resp 17 17 B/P (MAP) 108/55 (72) 108/55 (72) Pulse Ox 98 98 O2 Delivery Room Air Room Air Room Air 08/12/22 08/12/22 08/12/22 08/13/22 20:00 20:01 23:53 01:00 Temp 37.1 37.4 Pulse 110 103 99 Resp 16 18 B/P (MAP) 106/60 (75) 102/64 (77) Pulse Ox 95 94 O2 Delivery Room Air Room Air Room Air 08/13/22 08/13/22 08/13/22 08/13/22 03:10 03:35 07:00 07:27 Temp 36.9 36.9 Pulse 94 96 94 Resp 16 16 B/P (MAP) 96/60 (72) 100/56 (71) 96/52 (67) Pulse Ox 94 93 O2 Delivery Room Air Room Air 08/13/22 08/13/22 08/13/22 08:50 11:46 12:38 Temp 36.1 Pulse 88 90 Resp 16 B/P (MAP) 100/55 (70) Pulse Ox 96 O2 Delivery Room Air Room Air Capillary Refill : Less Than 3 Seconds General Appearance: WD/WN, no apparent distress Respiratory: chest non-tender, lungs clear, normal breath sounds, no respir atory distress, no accessory muscle use Cardiovascular: normal peripheral pulses, no murmur Gastrointestinal: normal bowel sounds, non tender, soft Extremities: normal range of motion, other (Left draining foot wound between 4- 5th toe, purulent drainage, + erythema and moderate ttp) Neurologic/Psychiatric: alert, oriented x 3 Lymphatic: no adenopathy Assessment/Plan Assessment/Plan Admission Status: Inpatient Order (span 2 midnights) Reason for Inpatient Admission: High risk of decompensation, needs IV antibiotics and close montioring (1) Sepsis Status: Acute Assessment & Plan: - IV antibiotics and continue IVFs Qualifiers: Qualified Codes: A41.9 - Sepsis, unspecified organism (2) Cellulitis of left leg Status: Acute Assessment & Plan: - Will need MRI to evaluate for Osteomyelitis, wound consult placed (3) Uncontrolled diabetes mellitus Status: Acute Assessment & Plan: - Started on Insulin, accuchecks ACHS, A1c pending Qualifiers: Qualified Codes: E11.65 - Type 2 diabetes mellitus with hyperglycemia (4) Insulin dependent diabetes mellitus with complications Status: Chronic (5) 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
[2022-08-13 14:11] LABS: BASOPHILS % (AUTO) 0 % (0-10); EOSINOPHILS # (AUTO) 0.1 10^3/uL (0.0-0.3); EOSINOPHILS % (AUTO) 1 % (0-10); HEMATOCRIT 34 % (35-52); HEMOGLOBIN 11.3 g/dL (11.5-16.0); LYMPHOCYTES # (AUTO) 1.9 10^3/uL (1.0-4.0); LYMPHOCYTES % (AUTO) 15 % (12-44); MEAN CORPUSCULAR HEMOGLOBIN 27 pg (25-34); MEAN CORPUSCULAR HGB CONC 33 g/dL (32-36); MEAN CORPUSCULAR VOLUME 81 fL (80-99); MEAN PLATELET VOLUME 9.5 fL (9.0-12.2); MONOCYTES # (AUTO) 0.8 10^3/uL (0.0-1.0); MONOCYTES % (AUTO) 7 % (0-12); NEUTROPHILS # (AUTO) 9.4 10^3/uL (1.8-7.8); NEUTROPHILS % (AUTO) 77 % (42-75); PLATELET COUNT 260 10^3/uL (130-400); WHITE BLOOD COUNT 12.2 10^3/uL (4.3-11.0)
[2022-08-13 14:31] LABS: ALBUMIN 2.4 GM/DL (3.2-4.5); BILIRUBIN,TOTAL 0.3 MG/DL (0.1-1.0); CALCIUM 8.1 MG/DL (8.5-10.1); CREATININE SERUM 0.67 MG/DL (0.60-1.30); POTASSIUM 3.2 MMOL/L (3.6-5.0); TOTAL PROTEIN 6.4 GM/DL (6.4-8.2)
[2022-08-14] MEDS: ENOXAPARIN 80 MG/0.8 ML (LOVENOX) SYR SC SCH ×2 (00:44→12:53)
[2022-08-14] MEDS: PIPERACILLIN SODIUM/TAZOBACTAM 4.5 GM in NS (IVPB) 100 ML IV SCH ×3 (03:04→18:14)
[2022-08-14 03:19] VITALS: BP 114/60
[2022-08-14] MEDS: inSUlin ASPART (NovoLOG) 1 UNIT/0.01 ML (CHARGE PER UNIT) SC SCH ×4 (05:06→20:45)
[2022-08-14 05:38] LABS: BASOPHILS % (AUTO) 0 % (0-10); EOSINOPHILS # (AUTO) 0.1 10^3/uL (0.0-0.3); EOSINOPHILS % (AUTO) 1 % (0-10); HEMATOCRIT 33 % (35-52); HEMOGLOBIN 11.1 g/dL (11.5-16.0); LYMPHOCYTES # (AUTO) 2.8 10^3/uL (1.0-4.0); LYMPHOCYTES % (AUTO) 25 % (12-44); MEAN CORPUSCULAR HEMOGLOBIN 27 pg (25-34); MEAN CORPUSCULAR HGB CONC 33 g/dL (32-36); MEAN CORPUSCULAR VOLUME 82 fL (80-99); MEAN PLATELET VOLUME 9.8 fL (9.0-12.2); MONOCYTES # (AUTO) 0.8 10^3/uL (0.0-1.0); MONOCYTES % (AUTO) 7 % (0-12); NEUTROPHILS # (AUTO) 7.5 10^3/uL (1.8-7.8); NEUTROPHILS % (AUTO) 67 % (42-75); PLATELET COUNT 262 10^3/uL (130-400); WHITE BLOOD COUNT 11.3 10^3/uL (4.3-11.0)
[2022-08-14 05:48] LABS: ALBUMIN 2.3 GM/DL (3.2-4.5); BILIRUBIN,TOTAL 0.3 MG/DL (0.1-1.0); CALCIUM 8.2 MG/DL (8.5-10.1); CREATININE SERUM 0.61 MG/DL (0.60-1.30); TOTAL PROTEIN 6.3 GM/DL (6.4-8.2)
[2022-08-14 07:37] VITALS: BP 109/53
[2022-08-14] MEDS: SENNOSIDES 8.6 MG (SENOKOT) TAB PO SCH ×2 (08:45→20:47)
[2022-08-14] MEDS: DOCUSATE SODIUM 100 MG (COLACE) CAP PO SCH ×2 (08:45→20:47)
[2022-08-14] MEDS ORDERED: KCL 20 MEQ TAB (K-DUR) PO ONE (09:00)
[2022-08-14] MEDS: NS IV 1000 ML 1,000 ML IV SCH (09:50)
--- NOTE | 2022-08-14 10:52 | Progress Note ---
Subjective Subjective/Events-last exam Patient refusing to answer any questions this AM. Shakes her head yes when asked if she is in pain. Tolerating PO diet Review of Systems Will no answer questions Focused Exam Lactate Level 08/12/22 11:07: Lactic Acid Level 2.83*H 08/12/22 12:56: Lactic Acid Level 2.99*H Objective Exam Last Set of Vital Signs Vital Signs Date Time Temp Pulse Resp B/P (MAP) Pulse Ox O2 Delivery O2 Flow Rate FiO2 08/14/22 08:00 Room Air 08/14/22 07:37 36.5 89 16 109/53 (71) 93 08/14/22 06:37 0.00 Capillary Refill : Less Than 3 Seconds I&O Intake and Output 08/14/22 00:00 Intake Total 2480 ml Output Total 2000 ml Balance 480 ml Intake Oral 1380 ml IV Total 1100 ml Output Urine Total 2000 ml General: Alert, No Acute Distress Lungs: Clear to Auscultation, Normal Air Movement Heart: Regular Rate, No Murmurs Abdomen: Soft, No Tenderness Extremities: Other (Left foot swelling and erythema with purulent drainage and foul odor, 2+ pitting edema in foot) Results/Procedures Lab Laboratory Tests 08/13/22 10:53: Glucometer 124H 08/13/22 13:55: White Blood Count 12.2H, Red Blood Count 4.18, Hemoglobin 11.3#L, Hematocrit 34L , Mean Corpuscular Volume 81, Mean Corpuscular Hemoglobin 27, Mean Corpuscular Hemoglobin Concent 33, Red Cell Distribution Width 14.6H, Platelet Count 260, Mean Platelet Volume 9.5, Immature Granulocyte % (Auto) 1, Neutrophils (%) (Auto) 77H, Lymphocytes (%) (Auto) 15, Monocytes (%) (Auto) 7, Eosinophils (%) (Auto) 1, Basophils (%) (Auto) 0, Neutrophils # (Auto) 9.4H, Lymphocytes # (Auto) 1.9, Monocytes # (Auto) 0.8, Eosinophils # (Auto) 0.1, Basophils # (Auto) 0.0, Immature Granulocyte # (Auto) 0.1, Sodium Level 136, Potassium Level 3.2L, Chloride Level 106, Carbon Dioxide Level 22, Anion Gap 8, Blood Urea Nitrogen 11, Creatinine 0.67, Estimat Glomerular Filtration Rate 102, BUN/Creatinine Ratio 16, Glucose Level 216H, Mean Blood Glucose 441H, Hemoglobin A1c 17.0H, Calcium Level 8.1L, Corrected Calcium 9.4, Total Bilirubin 0.3, Aspartate Amino Transf (AST/SGOT) 17, Alanine Aminotransferase (ALT/SGPT) 9, Alkaline Phosphatase 83, Total Protein 6.4, Albumin 2.4L 08/13/22 15:19: Glucometer 211H 08/13/22 21:17: Glucometer 194H 08/14/22 05:03: White Blood Count 11.3H, Red Blood Count 4.10, Hemoglobin 11.1L, Hematocrit 33L, Mean Corpuscular Volume 82, Mean Corpuscular Hemoglobin 27, Mean Corpuscular Hemoglobin Concent 33, Red Cell Distribution Width 14.8H, Platelet Count 262, Mean Platelet Volume 9.8, Immature Granulocyte % (Auto) 0, Neutrophils (%) (Auto) 67, Lymphocytes (%) (Auto) 25, Monocytes (%) (Auto) 7, Eosinophils (%) (Auto) 1, Basophils (%) (Auto) 0, Neutrophils # (Auto) 7.5, Lymphocytes # (Auto) 2.8, Monocytes # (Auto) 0.8, Eosinophils # (Auto) 0.1, Basophils # (Auto) 0.0, Immature Granulocyte # (Auto) 0.1, Sodium Level 137, Potassium Level 3.0L, Chloride Level 107, Carbon Dioxide Level 23, Anion Gap 7, Blood Urea Nitrogen 10, Creatinine 0.61, Estimat Glomerular Filtration Rate 104, BUN/Creatinine Ratio 16, Glucose Level 88, Glucometer 98, Calcium Level 8.2L, Corrected Calcium 9.6, Total Bilirubin 0.3, Aspartate Amino Transf (AST/SGOT) 16, Alanine Aminotransferase (ALT/SGPT) 9, Alkaline Phosphatase 79, Total Protein 6.3L, Albumin 2.3L Microbiology 08/12/22 Blood Culture - Preliminary, Resulted No growth Assessment/Plan Assessment/Plan (1) Sepsis Status: Acute Assessment & Plan: - IV antibiotics and continue IVFs 08/14: Blood pressure improved today, continue IV AB Qualifiers: Qualified Codes: A41.9 - Sepsis, unspecified organism (2) Cellulitis of left leg Status: Acute Assessment & Plan: - Will need MRI to evaluate for Osteomyelitis, wound consult placed 08/14: Needs MRI completed, will attempt with premedication (3) Uncontrolled diabetes mellitus Status: Acute Assessment & Plan: - Started on Insulin, accuchecks ACHS, A1c pending 08/14: A1c 17.0, blood sugars better controlled with insulin Qualifiers: Qualified Codes: E11.65 - Type 2 diabetes mellitus with hyperglycemia (4) Insulin dependent diabetes mellitus with complications Status: Chronic (5) 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 Status: Chronic (6) HTN (hypertension) Status: Chronic Assessment & Plan: - Continue IVFs, normo/hypo tensive at this time Qualifiers: Qualified Codes: I10 - Essential (primary) hypertension (7) Substance abuse Status: Chronic Assessment & Plan: - Discussed the need for cessation (8) DVT prophylaxis Assessment & Plan: -Lovenox, h/o DVT (9) Discharge planning issues Assessment & Plan: 08/14: Plan for patient to go to SNF, waiting on General surgery on whether or not she is going to get surgery during this admission Clinical Quality Measures DVT/VTE Risk/Contraindication: Contraindications-Mechi: Other *list below* Other: possible dvt SUNI CABEZAS MD Aug 14, 2022 10:52
[2022-08-14] MEDS ORDERED: TROUGH ORDER-PHARMACY XX NR (11:30)
--- NOTE | 2022-08-14 11:55 | Diagnostic Imaging Report ---
PROCEDURE: MR imaging left lower extremity without contrast. TECHNIQUE: Multiplanar, multisequence non contrast enhanced MR imaging of the left lower extremity was accomplished. INDICATION: Osteomyelitis of the left foot COMPARISON: Radiographs from 08/12/2022 FINDINGS: There is bone marrow edema throughout the 4th metatarsal shaft and head as well as the 4th toe proximal phalanx. There is T1-weighted marrow replacement of the 4th metatarsal head and neck as well as the 4th toe proximal phalangeal base and shaft. Findings are consistent with osteomyelitis. There is bone marrow edema at the lateral side of the 3rd metatarsal head as well as mild bone marrow edema in the 5th metatarsal and 5th toe proximal phalanx. There may be mild T1-weighted marrow replacement in the 5th toe proximal phalanx. There is an old fracture of the 5th metatarsal shaft. No acute fracture is seen. There is no significant joint effusion. There is a soft tissue ulceration plantar to the 4th metatarsal head. There does appear to be an air/fluid collection extending from the skin plantar to the 4th metatarsal, to the dorsal skin, measuring approximately 4.4 cm craniocaudal, 2.7 cm transverse, and 5.2 cm AP. Evaluation is suboptimal in the absence of contrast. There is generalized muscular atrophy and edema, which is likely neurogenic. There is mild subcutaneous edema and skin thickening about the left foot. The 4th toe flexor and extensor tendons are not well seen but other tendons appear to be intact. The Lisfranc ligament is intact. IMPRESSION: 1. Osteomyelitis of the left 4th metatarsal and proximal phalanx. Possible early osteomyelitis of the 5th proximal phalanx. 2. Likely abscess extending from the plantar foot to the dorsal forefoot and extending between the 4th and 5th metatarsophalangeal joints. 3. Osteitis of the 3rd metatarsal head and 5th metatarsal, without osteomyelitis seen at this time.. Dictated by: Dictated on workstation # [id number]
[2022-08-14 12:00] VITALS: BP 127/75
--- NOTE | 2022-08-14 13:14 | Progress Note ---
Subjective Date Seen by a Provider: Aug 13, 2022 Time Seen by a Provider: 18:00 Subjective/Events-last exam initially non-compliant and combative however will now agree to MRI. no systemic systems of fever/chills. Focused Exam Lactate Level 08/12/22 11:07: Lactic Acid Level 2.83*H 08/12/22 12:56: Lactic Acid Level 2.99*H Objective Exam Vital Signs Date Time Temp Pulse Resp B/P (MAP) Pulse Ox O2 Delivery O2 Flow Rate FiO2 08/14/22 12:00 36.6 73 16 127/75 (92) 100 Room Air 08/14/22 08:00 Room Air 08/14/22 07:37 36.5 89 16 109/53 (71) 93 Room Air 08/14/22 07:36 85 08/14/22 06:37 94 Room Air 0.00 08/14/22 03:19 37.4 96 16 114/60 (78) 94 Room Air 08/14/22 01:00 101 08/13/22 23:19 36.9 88 17 112/63 (79) 95 Room Air 08/13/22 19:51 36.2 88 17 96/50 (65) 94 Room Air 08/13/22 19:50 Room Air 08/13/22 19:18 Room Air 08/13/22 19:00 91 08/13/22 15:15 37.2 83 18 112/70 (84) 97 Room Air I & O 08/14/22 07:00 Intake Total 1980 ml Output Total 2925 ml Balance -945 ml Capillary Refill : Less Than 3 Seconds General Appearance: No Apparent Distress HEENT: PERRL/EOMI Neck: Full Range of Motion Respiratory: Decreased Breath Sounds, Wheezing Cardiovascular: Regular Rate, Rhythm Gastrointestinal: normal bowel sounds, soft Extremity: Inflammation, Pedal Edema Neurologic/Psychiatric: Alert Skin: Normal Color, Other (left foot soft tissie necrosis overlying 4th and 5th metatarsal) Lymphatic: No Adenopathy Results Lab Laboratory Tests 08/13/22 13:55: White Blood Count 12.2H, Red Blood Count 4.18, Hemoglobin 11.3#L, Hematocrit 34L , Mean Corpuscular Volume 81, Mean Corpuscular Hemoglobin 27, Mean Corpuscular Hemoglobin Concent 33, Red Cell Distribution Width 14.6H, Platelet Count 260, Mean Platelet Volume 9.5, Immature Granulocyte % (Auto) 1, Neutrophils (%) (Auto) 77H, Lymphocytes (%) (Auto) 15, Monocytes (%) (Auto) 7, Eosinophils (%) (Auto) 1, Basophils (%) (Auto) 0, Neutrophils # (Auto) 9.4H, Lymphocytes # (Auto) 1.9, Monocytes # (Auto) 0.8, Eosinophils # (Auto) 0.1, Basophils # (Auto) 0.0, Immature Granulocyte # (Auto) 0.1, Sodium Level 136, Potassium Level 3.2L, Chloride Level 106, Carbon Dioxide Level 22, Anion Gap 8, Blood Urea Nitrogen 11, Creatinine 0.67, Estimat Glomerular Filtration Rate 102, BUN/Creatinine Ratio 16, Glucose Level 216H, Mean Blood Glucose 441H, Hemoglobin A1c 17.0H, Calcium Level 8.1L, Corrected Calcium 9.4, Total Bilirubin 0.3, Aspartate Amino Transf (AST/SGOT) 17, Alanine Aminotransferase (ALT/SGPT) 9, Alkaline Phospha tase 83, Total Protein 6.4, Albumin 2.4L 08/13/22 15:19: Glucometer 211H 08/13/22 21:17: Glucometer 194H 08/14/22 05:03: White Blood Count 11.3H, Red Blood Count 4.10, Hemoglobin 11.1L, Hematocrit 33L, Mean Corpuscular Volume 82, Mean Corpuscular Hemoglobin 27, Mean Corpuscular Hemoglobin Concent 33, Red Cell Distribution Width 14.8H, Platelet Count 262, Mean Platelet Volume 9.8, Immature Granulocyte % (Auto) 0, Neutrophils (%) ( Auto) 67, Lymphocytes (%) (Auto) 25, Monocytes (%) (Auto) 7, Eosinophils (%) (Auto) 1, Basophils (%) (Auto) 0, Neutrophils # (Auto) 7.5, Lymphocytes # (Auto) 2.8, Monocytes # (Auto) 0.8, Eosinophils # (Auto) 0.1, Basophils # (Auto) 0.0, Immature Granulocyte # (Auto) 0.1, Sodium Level 137, Potassium Level 3.0L, Chloride Level 107, Carbon Dioxide Level 23, Anion Gap 7, Blood Urea Nitrogen 10, Creatinine 0.61, Estimat Glomerular Filtration Rate 104, BUN/Creatinine Ratio 16, Glucose Level 88, Calcium Level 8.2L, Corrected Calcium 9.6, Total Bilirubin 0.3, Aspartate Amino Transf (AST/SGOT) 16, Alanine Aminotransferase (ALT/SGPT) 9, Alkaline Phosphatase 79, Total Protein 6.3L, Albumin 2.3L, Glucometer 98 08/14/22 11:19: Glucometer 136H 08/14/22 12:23: Vancomycin Level Trough 2.8L Microbiology 08/12/22 Blood Culture - Preliminary, Resulted No growth Assessment/Plan Assessment/Plan Assess & Plan/Chief Complaint left foot necrosis with likely osteomyelitis. agrees to MRI. will then plan for appropriate level of debridement. Clinical Quality Measures DVT/VTE Risk/Contraindication: Contraindications-Mechi: Other *list below* Other: possible dvt MICKY KUMAR MD Aug 14, 2022 13:14
[2022-08-14] MEDS: VANCOMYCIN 1250 MG/NS 250 ML PREMIX IV SCH (13:23)
[2022-08-14 15:20] VITALS: BP 120/68
--- NOTE | 2022-08-14 15:42 | Progress Note ---
Subjective Date Seen by a Provider: Aug 14, 2022 Time Seen by a Provider: 15:00 Subjective/Events-last exam was able to have MRI with osteo identified metatarsal 4th and 5th. now states amenable to surg. Focused Exam Lactate Level 08/12/22 11:07: Lactic Acid Level 2.83*H 08/12/22 12:56: Lactic Acid Level 2.99*H Objective Exam Vital Signs Date Time Temp Pulse Resp B/P (MAP) Pulse Ox O2 Delivery O2 Flow Rate FiO2 08/14/22 15:20 36.6 78 18 120/68 (85) 94 Room Air 08/14/22 13:15 75 08/14/22 12:00 36.6 73 16 127/75 (92) 100 Room Air 08/14/22 08:00 Room Air 08/14/22 07:37 36.5 89 16 109/53 (71) 93 Room Air 08/14/22 07:36 85 08/14/22 06:37 94 Room Air 0.00 08/14/22 03:19 37.4 96 16 114/60 (78) 94 Room Air 08/14/22 01:00 101 08/13/22 23:19 36.9 88 17 112/63 (79) 95 Room Air 08/13/22 19:51 36.2 88 17 96/50 (65) 94 Room Air 08/13/22 19:50 Room Air 08/13/22 19:18 Room Air 08/13/22 19:00 91 I & O 08/14/22 07:00 Intake Total 1980 ml Output Total 2925 ml Balance -945 ml Capillary Refill : Less Than 3 Seconds General Appearance: No Apparent Distress HEENT: PERRL/EOMI Neck: Full Range of Motion Respiratory: Decreased Breath Sounds, Wheezing Cardiovascular: Regular Rate, Rhythm Gastrointestinal: normal bowel sounds, non tender, soft Extremity: Normal Capillary Refill Neurologic/Psychiatric: Alert Skin: Normal Color Lymphatic: No Adenopathy Results Lab Laboratory Tests 08/13/22 21:17: Glucometer 194H 08/14/22 05:03: Glucometer 98, White Blood Count 11.3H, Red Blood Count 4.10, Hemoglobin 11.1L, Hematocrit 33L, Mean Corpuscular Volume 82, Mean Corpuscular Hemoglobin 27, Mean Corpuscular Hemoglobin Concent 33, Red Cell Distribution Width 14.8H, Platelet Count 262, Mean Platelet Volume 9.8, Immature Granulocyte % (Auto) 0, Neutrophils (%) (Auto) 67, Lymphocytes (%) (Auto) 25, Monocytes (%) (Auto) 7, Eosinophils (%) (Auto) 1, Basophils (%) (Auto) 0, Neutrophils # (Auto) 7.5, Lymphocytes # (Auto) 2.8, Monocytes # (Auto) 0.8, Eosinophils # (Auto) 0.1, Basophils # (Auto) 0.0, Immature Granulocyte # (Auto) 0.1, Sodium Level 137, Potassium Level 3.0L, Chloride Level 107, Carbon Dioxide Level 23, Anion Gap 7, Blood Urea Nitrogen 10, Creatinine 0.61, Estimat Glomerular Filtration Rate 104, BUN/Creatinine Ratio 16, Glucose Level 88, Calcium Level 8.2L, Corrected Calcium 9.6, Total Bilirubin 0.3, Aspartate Amino Transf (AST/SGOT) 16, Alanine Aminotransferase (ALT/SGPT) 9, Alkaline Phosphatase 79, Total Protein 6.3L, Albumin 2.3L 08/14/22 11:19: Glucometer 136H 08/14/22 12:23: Vancomycin Level Trough 2.8L 08/14/22 15:16: Glucometer 186H Microbiology 08/12/22 Blood Culture - Preliminary, Resulted No growth 08/12/22 Urine Culture - Final, Complete YEAST Assessment/Plan Assessment/Plan Assess & Plan/Chief Complaint left foot necrosis with osteomyelitis left 4th and 5th phalange and metarsal head will then plan soft tissue debridement, 4th and 5th TMA and possible wound vac placement in am. Clinical Quality Measures DVT/VTE Risk/Contraindication: Contraindications-Mechi: Other *list below* Other: possible dvt MICKY KUMAR MD Aug 14, 2022 15:42
[2022-08-14 19:18] VITALS: BP 136/82
[2022-08-14 23:22] VITALS: BP 134/78
[2022-08-15] VITALS (12 sets, daily range): BP systolic 101–132; BP diastolic 59–72
[2022-08-15] MEDS: ENOXAPARIN 80 MG/0.8 ML (LOVENOX) SYR SC SCH ×2 (00:51→13:55)
[2022-08-15] MEDS: VANCOMYCIN 1250 MG/NS 250 ML PREMIX IV SCH ×2 (00:51→13:55)
[2022-08-15] MEDS: NS IV 1000 ML 1,000 ML IV SCH ×2 (00:51→18:20)
[2022-08-15] MEDS: PIPERACILLIN SODIUM/TAZOBACTAM 4.5 GM in NS (IVPB) 100 ML IV SCH ×3 (02:44→18:19)
[2022-08-15] MEDS: inSUlin ASPART (NovoLOG) 1 UNIT/0.01 ML (CHARGE PER UNIT) SC SCH ×4 (05:13→20:27)
[2022-08-15 05:33] LABS: BASOPHILS % (AUTO) 0 % (0-10); EOSINOPHILS # (AUTO) 0.1 10^3/uL (0.0-0.3); EOSINOPHILS % (AUTO) 1 % (0-10); HEMATOCRIT 34 % (35-52); LYMPHOCYTES # (AUTO) 2.8 10^3/uL (1.0-4.0); LYMPHOCYTES % (AUTO) 26 % (12-44); MEAN CORPUSCULAR HEMOGLOBIN 27 pg (25-34); MEAN CORPUSCULAR HGB CONC 32 g/dL (32-36); MEAN CORPUSCULAR VOLUME 83 fL (80-99); MEAN PLATELET VOLUME 9.8 fL (9.0-12.2); MONOCYTES # (AUTO) 0.7 10^3/uL (0.0-1.0); MONOCYTES % (AUTO) 6 % (0-12); NEUTROPHILS # (AUTO) 7.3 10^3/uL (1.8-7.8); NEUTROPHILS % (AUTO) 66 % (42-75); PLATELET COUNT 277 10^3/uL (130-400)
[2022-08-15 05:44] LABS: ALBUMIN 2.2 GM/DL (3.2-4.5)
[2022-08-15 05:45] LABS: POTASSIUM 3.8 MMOL/L (3.6-5.0)
[2022-08-15 05:46] LABS: CALCIUM 8.3 MG/DL (8.5-10.1)
[2022-08-15 05:47] LABS: TOTAL PROTEIN 6.2 GM/DL (6.4-8.2)
[2022-08-15 05:49] LABS: BILIRUBIN,TOTAL 0.2 MG/DL (0.1-1.0)
[2022-08-15 05:51] LABS: CREATININE SERUM 0.59 MG/DL (0.60-1.30)
[2022-08-15] MEDS: DOCUSATE SODIUM 100 MG (COLACE) CAP PO SCH ×2 (08:28→20:26)
[2022-08-15] MEDS: SENNOSIDES 8.6 MG (SENOKOT) TAB PO SCH ×2 (08:28→20:26)
--- NOTE | 2022-08-15 10:06 | Progress Note-Pre Operative ---
Pre-Operative Progress Note Date of Available H&P: Aug 15, 2022 Date H&P Reviewed: Aug 15, 2022 Time H&P Reviewed: 09:00 History & Physical: No changes noted Pre-Operative Diagnosis: necrosis/osteomyelitis left foot 4th and 5th digit and surrounding tissue. MICKY KUMAR MD Aug 15, 2022 10:06
--- NOTE | 2022-08-15 11:04 | Progress Note ---
Subjective Subjective/Events-last exam Patient sleeping comfortably this AM. NPO for surgery. Bed bound. Denies any pain when resting but uncomfortable during exam. Review of Systems General: Fatigue, Malaise Pulmonary: No Dyspnea, No Cough Cardiovascular: Edema; No: Chest Pain, Palpitations Gastrointestinal: No: Nausea, Vomiting, Abdominal Pain Musculoskeletal: leg pain, foot pain Neurological: Weakness, Incoordination, Confusion Focused Exam Lactate Level 08/12/22 11:07: Lactic Acid Level 2.83*H 08/12/22 12:56: Lactic Acid Level 2.99*H Objective Exam Last Set of Vital Signs Vital Signs Date Time Temp Pulse Resp B/P (MAP) Pulse Ox O2 Delivery O2 Flow Rate FiO2 08/15/22 08:00 95 Room Air 0.00 08/15/22 07:31 74 08/15/22 07:31 36.7 18 107/72 (84) Capillary Refill : Less Than 3 Seconds I&O Intake and Output 08/15/22 00:00 Intake Total 3957 ml Output Total 3625 ml Balance 332 ml Intake Oral 2607 ml IV Total 1350 ml Output Urine Total 3625 ml General: Alert, No Acute Distress Lungs: Clear to Auscultation, Normal Air Movement Heart: Regular Rate, No Murmurs Abdomen: Normal Bowel Sounds, Soft, No Tenderness, No Masses Extremities: Other (swelling mildly improved, still with purulent drainage and foul odor) Neuro: Normal Speech Results/Procedures Lab Laboratory Tests 08/14/22 11:19: Glucometer 136H 08/14/22 12:23: Vancomycin Level Trough 2.8L 08/14/22 15:16: Glucometer 186H 08/14/22 20:07: Glucometer 212H 08/15/22 05:05: Glucometer 134H 08/15/22 05:06: White Blood Count 11.0, Red Blood Count 4.11, Hemoglobin 11.0L, Hematocrit 34L, Mean Corpuscular Volume 83, Mean Corpuscular Hemoglobin 27, Mean Corpuscular Hemoglobin Concent 32, Red Cell Distribution Width 14.8H, Platelet Count 277, Mean Platelet Volume 9.8, Immature Granulocyte % (Auto) 1, Neutrophils (%) (Auto) 66, Lymphocytes (%) (Auto) 26, Monocytes (%) (Auto) 6, Eosinophils (%) (Auto) 1, Basophils (%) (Auto) 0, Neutrophils # (Auto) 7.3, Lymphocytes # (Auto) 2.8, Monocytes # (Auto) 0.7, Eosinophils # (Auto) 0.1, Basophils # (Auto) 0.0, Immature Granulocyte # (Auto) 0.1, Sodium Level 137, Potassium Level 3.8, Chloride Level 107, Carbon Dioxide Level 24, Anion Gap 6, Blood Urea Nitrogen 8, Creatinine 0.59L, Estimat Glomerular Filtration Rate 105, BUN/Creatinine Ratio 14, Glucose Level 136H, Calcium Level 8.3L, Corrected Calcium 9.7, Total Bilirubin 0.2, Aspartate Amino Transf (AST/SGOT) 24, Alanine Aminotransferase (ALT/SGPT) 21, Alkaline Phosphatase 122, Total Protein 6.2L, Albumin 2.2L Microbiology 08/12/22 Blood Culture - Preliminary, Resulted No growth 08/12/22 Urine Culture - Final, Complete YEAST Assessment/Plan Assessment/Plan (1) Sepsis Status: Acute Assessment & Plan: - IV antibiotics and continue IVFs 08/14: Blood pressure improved today, continue IV AB 08/15: Sepsis resolved, HDS, Continue IV AB Qualifiers: Qualified Codes: A41.9 - Sepsis, unspecified organism (2) Osteomyelitis of left foot Status: Acute Assessment & Plan: 08/15: Osteomyelitis confirmed by MRI, Plan for surgery per Dr De La Cruz Qualifiers: Qualified Codes: M86.9 - Osteomyelitis, unspecified (3) Cellulitis of left leg Status: Acute Assessment & Plan: - Will need MRI to evaluate for Osteomyelitis, wound consult placed 08/14: Needs MRI completed, will attempt with premedication (4) Uncontrolled diabetes mellitus Status: Acute Assessment & Plan: - Started on Insulin, accuchecks ACHS, A1c pending 08/14: A1c 17.0, blood sugars better controlled with insulin Qualifiers: Qualified Codes: E11.65 - Type 2 diabetes mellitus with hyperglycemia (5) Insulin dependent diabetes mellitus with complications Status: Chronic (6) 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 Status: Chronic (7) HTN (hypertension) Status: Chronic Assessment & Plan: - Continue IVFs, normo/hypo tensive at this time Qualifiers: Qualified Codes: I10 - Essential (primary) hypertension (8) Substance abuse Status: Chronic Assessment & Plan: - Discussed the need for cessation (9) DVT prophylaxis Assessment & Plan: -Lovenox, h/o DVT (10) Discharge planning issues Assessment & Plan: 08/14: Plan for patient to go to SNF, waiting on General surgery on whether or not she is going to get surgery during this admission 08/15: Patient will need SNF, will reevaluate after surgery Clinical Quality Measures DVT/VTE Risk/Contraindication: Contraindications-Mechi: Other *list below* Other: possible dvt SUNI CABEZAS MD Aug 15, 2022 11:04
[2022-08-15] MEDS ORDERED: LORazepam INJ 2 MG/ML (ATIVAN) VIAL IVP NR (13:45)
[2022-08-15] MEDS ORDERED: SEVOFLURANE (ULTANE) 15 ML INHAL SOLN ONE (14:54)
[2022-08-15] MEDS ORDERED: LIDOCAINE PF 2% 5 ML (XYLOCAINE) VIAL ONE (14:54)
[2022-08-15] MEDS ORDERED: fentaNYL INJ 100 MCG/2 ML AMP ONE (14:54)
[2022-08-15] MEDS ORDERED: ONDANSETRON 4 MG/2 ML (SDV) Z0FRAN ONE (14:54)
[2022-08-15] MEDS ORDERED: proPOfol 200 MG/20 ML (DIPRIVAN) VIAL IV ONE (14:54)
[2022-08-15] MEDS ORDERED: MIDAZOLAM 2 MG/2 ML (VERSED) VIAL ONE (14:54)
[2022-08-15] MEDS ORDERED: LACTATED RINGERS 1,000 ML IV PRN (15:15)
[2022-08-15] MEDS ORDERED: BUP/EPI 0.5% 1:200,000 (SENSORCAINE) 30 ML VIAL ONE (15:27)
[2022-08-15] MEDS ORDERED: PHENYLEPHRINE 100 MCG/ML 10 ML (ANESTHESIA) SYR ONE (15:46)
--- NOTE | 2022-08-15 16:08 | Progress Note-Post Operative ---
Post-Operative Progess Note Surgeon (s)/Cotton Presser (s) Surgeon MICKY KUMAR MD Cotton Presser: none Pre-Operative Diagnosis necrosis/osteomyelitis left foot 4th and 5th digit and surrounding tissue. Post-Operative Diagnosis same Procedure & Operative Findings Date of Procedure 08/15/22 Procedure Performed/Findings foot nerve block. transmetatarsal resection left foot 4th and 5th digit with debridement skin/muscle/bone [id number]. Anesthesia Type general LMA. foot nerve block. Estimated Blood Loss Estimated blood loss (mL): minimal Specimens/Packing Specimens Removed left foot metatarsal head and digit with surrounding soft tissue 4th and 5th di git. MICKY KUMAR MD Aug 15, 2022 16:08
[2022-08-15] MEDS ORDERED: morphine INJ 10 MG/ML 1ML (SYR OR VIAL) IVP ONE (16:15)
[2022-08-15] MEDS ORDERED: ONDANSETRON 4 MG/2 ML (SDV) Z0FRAN IVP PRN (16:15)
[2022-08-15] MEDS ORDERED: HYPOCHLOROUS ACID/NaCl (VASHE) 250 ML IR PRN (17:30)
[2022-08-15] MEDS: LORazepam 0.5 MG (ATIVAN) TABLET PO PRN (20:26)
--- NOTE | 2022-08-15 23:40 | OPERATIVE REPORT ---
DATE OF SERVICE: 08/15/2022 ATTENDING FOREIGN LANGUAGE PROFESSOR: [facility]. ADMITTING PHYSICIAN: Billie Power DO PREOPERATIVE DIAGNOSES: Osteomyelitis, left foot fourth and fifth digit as well as the metatarsal head with surrounding soft tissue necrosis encompassing skin, subcutaneous tissue and muscle as well as bone. This overall area was approximately 10 x 15 cm in size, encompassing both the plantar and dorsal surfaces. POSTOPERATIVE DIAGNOSES: Osteomyelitis, left foot fourth and fifth digit as well as the metatarsal head with surrounding soft tissue necrosis encompassing skin, subcutaneous tissue and muscle as well as bone. This overall area was approximately 10 x 15 cm in size, encompassing both the plantar and dorsal surfaces. PROCEDURE: Wide debridement, soft tissue surrounding the fourth and fifth left foot phalangeal and metatarsal region encompassing skin, subcutaneous tissue, muscle and bone as well as a transmetatarsal amputation. Foot nerve block. SURGEON: Micky Kumar MD ANESTHESIA: General laryngeal mask airway. Foot nerve block. ESTIMATED BLOOD LOSS: Minimal. FINDINGS: Necrotic skin, subcutaneous tissue and muscle layers of the left foot fourth and fifth digit and metacarpophalangeal joint, encompassing all layers of tissue. DISPOSITION: The patient tolerated the procedure well. INDICATIONS: The patient is a 56-year-old female who was brought in by EMS due to a swollen left foot and left foot pain. She is a very poor historian, has a longstanding history of methamphetamine use, homelessness and is seen on the streets on numerous occasions. She has a number of medical comorbidities including history of chronic venous insufficiency, history of DVT, insulin-dependent diabetes, COPD, coronary artery disease and again is an active user of methamphetamine. We were consulted for evaluation of her left foot where there was signs of chronic venous insufficiency of bilateral lower extremities; however, much more significant on the left with redness and erythema extending into the ankle. There was also significant amount of pedal and ankle edema. There was an open wound along the plantar surface with overlying redness and erythema of the left foot at approximately the fourth and fifth metacarpophalangeal joint and this inflammation did extend laterally and to the dorsal surface of the foot. This was tender to palpation. She did have palpable posterior tibial and dorsalis pedis pulses. 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 She is now here for amputation and wide debridement. DESCRIPTION OF PROCEDURE: The patient was brought to the operating room, laid supine on the table. After adequate IV pain and sedative medications and general laryngeal mask airway intubation, the left foot was prepped and draped in standard surgical fashion. We then proceeded with a left foot block anesthetizing the posterior tibial nerve, peroneal nerve as well as the anterior tibial nerve using 0.5% Marcaine with epinephrine. The area around our resection margin was also anesthetized. We then measured out the area of what appeared to be necrotic devitalized tissue and viable noninfected and well perfused tissue along the plantar and dorsal aspects of the left lateral foot. Adding up all surfaces, this was approximately 15 x 10 cm. This area was marked off with a marking pen. We then proceeded with opening of the skin using a #15 blade. Our distal edges was bleeding indicating good perfusion. We then proceeded with dissection of the subcutaneous tissue, muscle layers, tendons, and ligaments using electrocautery. Once the body of the metatarsals were identified, periosteal elevators were then used to remove any muscle attachment as well as periosteum. Good hemostasis was observed and the fourth and fifth metatarsals were cut with a bone cutter. The edges were then smoothened with a bone rasp. Again, the surrounding tissue did bleed somewhat indicating well perfused tissue left behind. The open wound was then packed with saline-soaked gauze followed by pack of 4 x 4 gauze, Kerlix wrap and Coban and a walking shoe. The patient tolerated the procedure well. We will send her back to the medical/surgical floor and continue with IV antibiotics. We will also consult nursing wound care for placement of a wound VAC. We will also continue with IV fluid resuscitation and IV antibiotics as well as a 2000 protein-calorie ADA diet limited to 75 grams of carbohydrates. Once stable, she may be discharged home; however, she does have a number of psychosocial issues and may be homeless and we will consult social worker for potential other interventions or placement. Job ID: [id number] DocumentID: [id number] Dictated Date: 08/15/2022 16:21:33 Behaviorist Date: 08/15/2022 23:34:00 Dictated By: MICKY KUMAR MD
[2022-08-16] MEDS: VANCOMYCIN 1250 MG/NS 250 ML PREMIX IV SCH (00:27)
[2022-08-16] MEDS: ENOXAPARIN 80 MG/0.8 ML (LOVENOX) SYR SC SCH ×2 (00:27→11:09)
[2022-08-16 03:10] VITALS: BP 118/76
[2022-08-16] MEDS: PIPERACILLIN SODIUM/TAZOBACTAM 4.5 GM in NS (IVPB) 100 ML IV SCH ×3 (03:20→19:06)
[2022-08-16 05:36] LABS: BASOPHILS % (AUTO) 0 % (0-10); EOSINOPHILS # (AUTO) 0.1 10^3/uL (0.0-0.3); EOSINOPHILS % (AUTO) 1 % (0-10); HEMATOCRIT 36 % (35-52); HEMOGLOBIN 11.9 g/dL (11.5-16.0); LYMPHOCYTES # (AUTO) 2.2 10^3/uL (1.0-4.0); LYMPHOCYTES % (AUTO) 21 % (12-44); MEAN CORPUSCULAR HEMOGLOBIN 27 pg (25-34); MEAN CORPUSCULAR HGB CONC 33 g/dL (32-36); MEAN CORPUSCULAR VOLUME 82 fL (80-99); MEAN PLATELET VOLUME 9.3 fL (9.0-12.2); MONOCYTES # (AUTO) 0.9 10^3/uL (0.0-1.0); MONOCYTES % (AUTO) 8 % (0-12); NEUTROPHILS # (AUTO) 7.2 10^3/uL (1.8-7.8); NEUTROPHILS % (AUTO) 68 % (42-75); PLATELET COUNT 285 10^3/uL (130-400); WHITE BLOOD COUNT 10.5 10^3/uL (4.3-11.0)
[2022-08-16] MEDS: inSUlin ASPART (NovoLOG) 1 UNIT/0.01 ML (CHARGE PER UNIT) SC SCH ×4 (05:39→20:14)
[2022-08-16 05:50] LABS: ALBUMIN 2.3 GM/DL (3.2-4.5); POTASSIUM 3.9 MMOL/L (3.6-5.0)
[2022-08-16 05:51] LABS: CALCIUM 8.5 MG/DL (8.5-10.1)
[2022-08-16 05:52] LABS: TOTAL PROTEIN 6.8 GM/DL (6.4-8.2)
[2022-08-16 05:54] LABS: BILIRUBIN,TOTAL 0.3 MG/DL (0.1-1.0)
[2022-08-16 05:56] LABS: CREATININE SERUM 0.61 MG/DL (0.60-1.30)
[2022-08-16 07:25] VITALS: BP 144/70
[2022-08-16] MEDS: NS IV 1000 ML 1,000 ML IV SCH ×2 (08:14→17:05)
[2022-08-16] MEDS: SENNOSIDES 8.6 MG (SENOKOT) TAB PO SCH ×2 (09:16→21:02)
[2022-08-16] MEDS: DOCUSATE SODIUM 100 MG (COLACE) CAP PO SCH ×2 (09:16→21:02)
--- NOTE | 2022-08-16 10:49 | Anesthesia-General Post-Op ---
General Patient Condition Mental Status/LOC: Same as Preop Cardiovascular: Satisfactory Nausea/Vomiting: Absent Respiratory: Satisfactory Pain: Controlled Complications: Absent Post Op Complications Complications None Follow Up Care/Instructions Patient Instructions None needed. Anesthesia/Patient Condition Patient Condition Patient is doing well, no complaints, stable vital signs, no apparent adverse anesthesia problems. No complications reported per nursing. NAYANA TIMMONS CRNA Aug 16, 2022 10:49
[2022-08-16 11:27] VITALS: BP 113/57
--- NOTE | 2022-08-16 12:06 | Progress Note ---
Subjective Date Seen by a Provider: Aug 16, 2022 Time Seen by a Provider: 11:40 Subjective/Events-last exam Patient seen with Dr. De La Cruz. Patient reports doing well. Denies any pain of the left foot. Tolerating diet. Objective Exam Vital Signs Date Time Temp Pulse Resp B/P (MAP) Pulse Ox O2 Delivery O2 Flow Rate FiO2 08/16/22 11:27 36.5 94 18 113/57 (75) 95 Room Air 08/16/22 07:37 77 08/16/22 07:25 36.5 72 18 144/70 (94) 97 Room Air 08/16/22 03:10 36.2 76 16 118/76 (90) 97 Room Air 0.00 0.00 08/16/22 01:00 80 08/15/22 23:08 36.3 75 16 124/62 (82) 97 Room Air 0.00 0.00 08/15/22 20:00 Room Air 08/15/22 19:45 36.3 75 18 130/62 (84) 97 Room Air 0.00 08/15/22 19:00 80 08/15/22 16:50 Room Air 0.00 08/15/22 16:48 36.3 86 16 132/60 (84) 90 Room Air 0.00 08/15/22 16:40 36.1 23 121/68 (85) 94 Room Air 08/15/22 16:35 Room Air 08/15/22 16:30 21 121/70 (87) 96 Room Air 08/15/22 16:20 OxyMask 10.00 08/15/22 16:20 15 117/63 (81) 100 OxyMask 10.00 08/15/22 16:10 21 108/60 (76) 100 OxyMask 10.00 08/15/22 16:06 36.3 20 101/61 (74) 99 OxyMask 10.00 08/15/22 16:06 OxyMask 10.00 08/15/22 15:14 36.7 67 93 08/15/22 12:44 67 I & O 08/16/22 07:00 Intake Total 650 ml Output Total 4150 ml Balance -3500 ml Capillary Refill : Less Than 3 SecondsLess Than 3 Seconds General Appearance: No Apparent Distress, WD/WN Respiratory: No Accessory Muscle Use, No Respiratory Distress Gastrointestinal: normal bowel sounds, non tender, soft Extremity: Normal Range of Motion, Other (left foot wound vac in place) Neurologic/Psychiatric: Alert, Normal Mood/Affect Skin: Normal Color, Warm/Dry Results Lab Laboratory Tests 08/15/22 16:50: Glucometer 156H 08/15/22 19:47: Glucometer 226H 08/16/22 05:07: Glucometer 136H 08/16/22 05:24: White Blood Count 10.5, Red Blood Count 4.41, Hemoglobin 11.9, Hematocrit 36, Mean Corpuscular Volume 82, Mean Corpuscular Hemoglobin 27, Mean Corpuscular Hemoglobin Concent 33, Red Cell Distribution Width 14.6H, Platelet Count 285, Mean Platelet Volume 9.3, Immature Granulocyte % (Auto) 1, Neutrophils (%) (Auto) 68, Lymphocytes (%) (Auto) 21, Monocytes (%) (Auto) 8, Eosinophils (%) (Auto) 1, Basophils (%) (Auto) 0, Neutrophils # (Auto) 7.2, Lymphocytes # (Auto) 2.2, Monocytes # (Auto) 0.9, Eosinophils # (Auto) 0.1, Basophils # (Auto) 0.0, Immature Granulocyte # (Auto) 0.1, Sodium Level 134L, Potassium Level 3.9, Chloride Level 102, Carbon Dioxide Level 26, Anion Gap 6, Blood Urea Nitrogen 8, Creatinine 0.61, Estimat Glomerular Filtration Rate 104, BUN/Creatinine Ratio 13, Glucose Level 133H, Calcium Level 8.5, Corrected Calcium 9.9, Total Bilirubin 0.3, Aspartate Amino Transf (AST/SGOT) 20, Alanine Aminotransferase (ALT/SGPT) 19, Alkaline Phosphatase 117, Total Protein 6.8, Albumin 2.3L 08/16/22 10:21: Glucometer 259H Microbiology 08/14/22 MRSA Screen - Final, Complete MRSA not isolated 08/12/22 Blood Culture - Preliminary, Resulted No growth 08/12/22 Urine Culture - Final, Complete YEAST Assessment/Plan Assessment/Plan Assess & Plan/Chief Complaint A 56 year old female with left foot necrosis with osteomyelitis left 4th and 5th phalange and metarsal head, S/P soft tissue debridement, 4th and 5th TMA and wound vac placement VSS WBC 10.5 Continue wound vac IV abx pain and nausea meds as needed SS for placement Clinical Quality Measures DVT/VTE Risk/Contraindication: Contraindications-Mechi: Other *list below* Other: possible dvt DAISY GREEN UNDERCOATER Aug 16, 2022 12:06
--- NOTE | 2022-08-16 12:15 | Progress Note ---
Subjective Subjective/Events-last exam Patient states that she is doing ok. Denies any pain in foot. Wound vac in place. Review of Systems General: Fatigue Pulmonary: No Dyspnea, No Cough Cardiovascular: No: Chest Pain, Palpitations, Edema Gastrointestinal: No: Nausea, Vomiting, Abdominal Pain, Diarrhea, Constipation Musculoskeletal: leg pain, foot pain Neurological: Weakness, Incoordination Objective Exam Last Set of Vital Signs Vital Signs Date Time Temp Pulse Resp B/P (MAP) Pulse Ox O2 Delivery O2 Flow Rate FiO2 08/16/22 11:27 36.5 94 18 113/57 (75) 95 Room Air 08/16/22 03:10 0.00 0.00 Capillary Refill : Less Than 3 SecondsLess Than 3 Seconds I&O Intake and Output 08/16/22 00:00 Intake Total 450 ml Output Total 3800 ml Balance -3350 ml Intake Oral 450 ml Output Urine Total 3800 ml General: Alert, Oriented X3, No Acute Distress Lungs: Clear to Auscultation, Normal Air Movement Heart: Regular Rate, No Murmurs Abdomen: Normal Bowel Sounds, Soft, No Tenderness Extremities: Other (Wound vac in place draining blood tinged serous fluid) Neuro: Normal Speech Psych/Mental Status: Mental Status NL, Mood NL Results/Procedures Lab Laboratory Tests 08/15/22 16:50: Glucometer 156H 08/15/22 19:47: Glucometer 226H 08/16/22 05:07: Glucometer 136H 08/16/22 05:24: White Blood Count 10.5, Red Blood Count 4.41, Hemoglobin 11.9, Hematocrit 36, Mean Corpuscular Volume 82, Mean Corpuscular Hemoglobin 27, Mean Corpuscular Hemoglobin Concent 33, Red Cell Distribution Width 14.6H, Platelet Count 285, Mean Platelet Volume 9.3, Immature Granulocyte % (Auto) 1, Neutrophils (%) (Auto) 68, Lymphocytes (%) (Auto) 21, Monocytes (%) (Auto) 8, Eosinophils (%) (Auto) 1, Basophils (%) (Auto) 0, Neutrophils # (Auto) 7.2, Lymphocytes # (Auto) 2.2, Monocytes # (Auto) 0.9, Eosinophils # (Auto) 0.1, Basophils # (Auto) 0.0, Immature Granulocyte # (Auto) 0.1, Sodium Level 134L, Potassium Level 3.9, Chloride Level 102, Carbon Dioxide Level 26, Anion Gap 6, Blood Urea Nitrogen 8, Creatinine 0.61, Estimat Glomerular Filtration Rate 104, BUN/Creatinine Ratio 13, Glucose Level 133H, Calcium Level 8.5, Corrected Calcium 9.9, Total Bilirubin 0.3, Aspartate Amino Transf (AST/SGOT) 20, Alanine Aminotransferase (ALT/SGPT) 19, Alkaline Phosphatase 117, Total Protein 6.8, Albumin 2.3L 08/16/22 10:21: Glucometer 259H Microbiology 08/14/22 MRSA Screen - Final, Complete MRSA not isolated 08/12/22 Blood Culture - Preliminary, Resulted No growth 08/12/22 Urine Culture - Final, Complete YEAST Assessment/Plan Assessment/Plan (1) Sepsis Status: Acute Assessment & Plan: - IV antibiotics and continue IVFs 08/14: Blood pressure improved today, continue IV AB 08/15: Sepsis resolved, HDS, Continue IV AB 08/16: s/p debridment and toe amputation, wound vac in place, working on placement Qualifiers: Qualified Codes: A41.9 - Sepsis, unspecified organism (2) Osteomyelitis of left foot Status: Acute Assessment & Plan: 08/15: Osteomyelitis confirmed by MRI, Plan for surgery per Dr De La Cruz 08/16: POD #1 Qualifiers: Qualified Codes: M86.9 - Osteomyelitis, unspecified (3) Cellulitis of left leg Status: Acute Assessment & Plan: - Will need MRI to evaluate for Osteomyelitis, wound consult placed 08/14: Needs MRI completed, will attempt with premedication (4) Uncontrolled diabetes mellitus Status: Acute Assessment & Plan: - Started on Insulin, accuchecks ACHS, A1c pending 08/14: A1c 17.0, blood sugars better controlled with insulin 08/16: increase levemir to 18 units BID Qualifiers: Qualified Codes: E11.65 - Type 2 diabetes mellitus with hyperglycemia (5) Insulin dependent diabetes mellitus with complications Status: Chronic (6) 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 Status: Chronic (7) HTN (hypertension) Status: Chronic Assessment & Plan: - Continue IVFs, normo/hypo tensive at this time Qualifiers: Qualified Codes: I10 - Essential (primary) hypertension (8) Substance abuse Status: Chronic Assessment & Plan: - Discussed the need for cessation (9) DVT prophylaxis Assessment & Plan: -Lovenox, h/o DVT (10) Discharge planning issues Assessment & Plan: 08/14: Plan for patient to go to SNF, waiting on General surgery on whether or not she is going to get surgery during this admission 08/15: Patient will need SNF, will reevaluate after surgery Clinical Quality Measures DVT/VTE Risk/Contraindication: Contraindications-Mechi: Other *list below* Other: possible dvt SUNI CABEZAS MD Aug 16, 2022 12:15
[2022-08-16] MEDS: LORazepam INJ 2 MG/ML (ATIVAN) VIAL IVP PRN (15:13)
[2022-08-16 15:29] VITALS: BP 138/70
[2022-08-16] MEDS: LORazepam 0.5 MG (ATIVAN) TABLET PO PRN (16:59)
[2022-08-16] MEDS ORDERED: NICOTINE 21 MG (NICODERM) PATCH TD NR (17:00)
[2022-08-16 20:14] VITALS: BP 136/69
[2022-08-17 00:38] VITALS: BP 165/73
[2022-08-17] MEDS: ENOXAPARIN 80 MG/0.8 ML (LOVENOX) SYR SC SCH ×2 (00:38→11:41)
[2022-08-17] MEDS ORDERED: NS (IVPB) 100 ML ONE (02:56)
[2022-08-17] MEDS ORDERED: PIPERACILLIN/TAZO 4.5 GM VIAL (ZOSYN) IV ONE (02:56)
[2022-08-17] MEDS: LORazepam INJ 2 MG/ML (ATIVAN) VIAL IVP PRN (03:10)
[2022-08-17] MEDS: PIPERACILLIN SODIUM/TAZOBACTAM 4.5 GM in NS (IVPB) 100 ML IV SCH (03:10)
[2022-08-17 03:48] VITALS: BP 110/64
--- NOTE | 2022-08-17 05:31 | Progress Note - Hospitalist ---
Subjective HPI/CC On Admission Date Seen by Provider: Aug 17, 2022 Time Seen by Provider: 11:00 Subjective/Events-last exam Patient doing a lot better We will initiate PT and OT since she has not been out of bed Bowels have not moved yet so we will initiate laxatives Antibiotics changed to p.o. Awaiting placement at [facility] and rehab Discontinue catheter Labs reviewed Review of Systems General: Fatigue, Malaise Musculoskeletal: foot pain Objective Exam Vital Signs Vital Signs Date Time Temp Pulse Resp B/P (MAP) Pulse Ox O2 Delivery O2 Flow Rate FiO2 08/17/22 23:48 37.1 83 12 127/75 (92) 97 Room Air 08/16/22 19:45 0.00 Capillary Refill : Less Than 3 SecondsLess Than 3 Seconds General Appearance: No Apparent Distress, WD/WN, Chronically ill, Thin Respiratory: Lungs Clear, Normal Breath Sounds Cardiovascular: Regular Rate, Rhythm Neurologic/Psychiatric: Alert, Oriented x3 Results/Procedures Lab Laboratory Tests 08/17/22 17:36 Patient resulted labs reviewed. Assessment/Plan Assessment and Plan Assess & Plan/Chief Complaint Assessment: Osteomyelitis of left foot now with wound VAC after partial amputation Diabetes Constipation Illicit drug use Plan: IV antibiotics changed to p.o. Awaiting placement in alf Wound VAC DC catheter Initiate laxatives PT and OT Clinical Quality Measures DVT/VTE Risk/Contraindication: Contraindications-Mechi: Other *list below* Other: possible dvt KAPIL NEWSOME DO Aug 17, 2022 05:31
[2022-08-17] MEDS: inSUlin ASPART (NovoLOG) 1 UNIT/0.01 ML (CHARGE PER UNIT) SC SCH ×4 (06:45→20:40)
[2022-08-17] MEDS: NS IV 1000 ML 1,000 ML IV SCH (07:13)
[2022-08-17 08:00] VITALS: BP 106/60
[2022-08-17] MEDS: NICOTINE 21 MG (NICODERM) PATCH TD SCH (08:01)
[2022-08-17] MEDS: DOCUSATE SODIUM 100 MG (COLACE) CAP PO SCH ×2 (08:01→21:07)
[2022-08-17] MEDS: NICOTINE PATCH REMOVAL TP SCH (08:02)
[2022-08-17] MEDS: SENNOSIDES 8.6 MG (SENOKOT) TAB PO SCH ×2 (08:02→21:07)
[2022-08-17] MEDS: LORazepam 0.5 MG (ATIVAN) TABLET PO PRN (08:02)
[2022-08-17] MEDS ORDERED: LACTULOSE SYRUP 10GM/15ML (ENULOSE) 30ML UDC PO ONE (10:45)
[2022-08-17] MEDS ORDERED: SENNA W/DOCUSATE (SENOKOT S) TABLET PO ONE (10:45)
[2022-08-17] MEDS: AUGMENTIN 875 MG TAB (AMOXICILLIN/CLAVULANATE) PO SCH ×2 (10:52→21:07)
--- NOTE | 2022-08-17 11:52 | Physical Therapy Evaluation ---
PT Evaluation-General Medical Diagnosis Admission Date Aug 12, 2022 at 13:07 Medical Diagnosis: osteomyelitis left foot Onset Date: Aug 12, 2022 Therapy Diagnosis Therapy Diagnosis: generalized weakness/debility Height/Weight Height (Feet): 5 Height (Inches): 7.00 Weight (Pounds): 190 Weight (Ounces): 3.2 Precautions Precautions/Isolations: Fall Prevention, Standard Precautions Referral Physician: Jannet Reason for Referral: Evaluation/Treatment Medical History Pertinent Medical History: Alcoholism, CAD, COPD, DM, Neuropathy, Smoking Additional Medical History meth use Current History EMS secondary to left foot wound and not taking care of herself Reviewed History: Yes Prior Prior Level of Function SCALE: Activities may be completed with or without assistive devices. 4-Jjclnblsph-nudtqji completes the activity by him/herself with no assistance from a helper. 5-Set-up or Clean-up Assistance-helper sets up or cleans up; patient completes activity. [place] assists only prior to or following the activity. 4-Supervision or Touching Assistance-helper provides verbal cues and/or touching/steadying and/or contact guard assistance as patient completes activity. Assistance may be provided throughout the activity or intermittently. 3-Partial/Moderate Assistance-helper does LESS THAN HALF the effort. [place] lifts, holds or supports trunk or limbs, but provides less than half the effort. 2-Substantial/Maximal Assistance-helper does MORE THAN HALF the effort. [place] lifts or holds trunk or limbs and provides more than half the effort. 4-Hkvbqpzuo-otdhpf does ALL the effort. Patient does none of the effort to complete the activity. Or, the assistance of 2 or more helpers is required for the patient to complete the activity. If activity was not attempted, code reason: 7-Patient Refused. 9-Not Applicable-not attempted and the patient did not perform the activity before the current illness, exacerbation or injury. 10-Not Attempted due to Environmental Limitations-(lack of equipment, weather restraints, etc.). 88-Not Attempted due to Medical Conditions or Safety Concerns. Bed Mobility: 6 Transfers (B,C,W/C): 6 Gait: 6 Indoor Mobility (Ambulation): Independent Prior Devices Use: None PT Evaluation-Current Subjective Patient agrees to PT. Objective Patient Orientation: Person ROM/Strength ROM Lower Extremities bilateral LE WFL Strength Lower Extremities 3/5 grossly bilateral LE all planes Integumentary/Posture Bladder Incontinence: Richardson Cath Posture trunk flexed/kyphotic Neuromuscular (Tone, Coordination, Reflexes) diminished coordination due to drug use Sensory Vision: Functional Hearing: Functional Transfers Lying to Sitting/Side of Bed(Q: 3 Sit to Stand (QC): 3 Chair/Azp-kl-Kirba Xfer(QC): 3 Gait Mode of Locomotion: Walk Anticipated Mode of Locomotion: Walk Walk 10 feet (QC): 3 Walk 50 ft with 2 Turns(QC): 88 Gait Assistive Device: FWW Comments/Gait Description minimal foot clearance with noted trunk flexed posture Balance Sitting Static: Fair Sitting Dynamic: Fair Standing Static: Poor Standing Dynamic: Poor Assessment/Needs Patient will benefit from skilled PT to address functional strength and mobility to improve current LOF. Patient requires time to complete all functional tasks. Rehab Potential: Guarded Post Rehab Potential-Barriers: compliance PT Towboat Operator Goals Towboat Operator Goals PT Fpc Goals Time Frame: Sep 01, 2022 Roll Left & Right (QC): 4 Sit to Lying (QC): 4 Lying-Sitting on Side/Bed(QC): 4 Sit to Stand (QC): 4 Chair/Qws-rv-Fucht Xfer(QC): 4 Toilet Transfer (QC): 4 Walk 10 feet (QC): 4 Walk 50ft with 2 Turns (QC): 4 PT Plan Problem List Problem List: Activity Tolerance, Functional Strength, Safety, Balance, Gait, Transfer, Bed Mobility Treatment/Plan Treatment Plan: Continue Plan of Care Treatment Plan: Bed Mobility, Education, Functional Activity Maggy, Functional Strength, Gait, Safety, Therapeutic Exercise, Transfers Treatment Duration: Sep 01, 2022 Frequency: 6 times per week Estimated Hrs Per Day: .25 hour per day Time Time In: 1050 Time Out: 1105 DATE: Aug 17, 2022 Total Billed Treatment Time: 15 [facility] KATARZYNA MCDONALD PT Aug 17, 2022 11:52
--- NOTE | 2022-08-17 12:28 | Progress Note ---
Subjective Date Seen by a Provider: Aug 17, 2022 Time Seen by a Provider: 11:00 Subjective/Events-last exam doing well. eating very well. pain controlled. wound vac in place. Objective Exam Vital Signs Date Time Temp Pulse Resp B/P (MAP) Pulse Ox O2 Delivery O2 Flow Rate FiO2 08/17/22 08:00 36.5 78 18 106/60 (75) 98 Room Air 08/17/22 08:00 98 Room Air 08/17/22 07:11 Room Air 08/17/22 07:00 76 08/17/22 03:48 84 18 110/64 (79) 95 08/17/22 01:00 80 08/17/22 00:38 36.6 78 18 165/73 (103) 97 Room Air 08/16/22 20:14 85 18 136/69 (91) 95 Room Air 08/16/22 19:45 95 Room Air 0.00 08/16/22 19:00 85 08/16/22 15:29 36.8 75 17 138/70 (92) 96 Room Air 08/16/22 12:41 80 I & O 08/17/22 07:00 Intake Total 2060 ml Output Total 5200 ml Balance -3140 ml Capillary Refill : Less Than 3 SecondsLess Than 3 Seconds General Appearance: No Apparent Distress HEENT: PERRL/EOMI Neck: Full Range of Motion Respiratory: Decreased Breath Sounds, Rhonci, Wheezing Cardiovascular: Regular Rate, Rhythm Gastrointestinal: normal bowel sounds, non tender, soft Extremity: Normal Capillary Refill, Other (left foot vac in place, no new areas redness/erythema) Neurologic/Psychiatric: Alert, Oriented x3 Skin: Normal Color Lymphatic: No Adenopathy Results Lab Laboratory Tests 08/16/22 16:38: Glucometer 247H 08/16/22 20:09: Glucometer 157H 08/17/22 06:42: Glucometer 155H 08/17/22 11:33: Glucometer 272H Microbiology 08/14/22 MRSA Screen - Final, Complete MRSA not isolated 08/12/22 Blood Culture - Preliminary, Resulted No growth 08/12/22 Urine Culture - Final, Complete YEAST Assessment/Plan Assessment/Plan Assess & Plan/Chief Complaint left foot necrosis with osteomyelitis left 4th and 5th phalange and metarsal head s/p debridement and TMA 4th and 5th digit. continue ambulation. ok to switch to augmentin PO. SS working on transfer to SNF Clinical Quality Measures DVT/VTE Risk/Contraindication: Contraindications-Mechi: Other *list below* Other: possible dvt MICKY KUMAR MD Aug 17, 2022 12:28
--- NOTE | 2022-08-17 12:36 | Occupational Therapy Eval ---
OT Evaluation-General/PLF Medical Diagnosis Admission Date Aug 12, 2022 at 13:07 Medical Diagnosis: osteomyelitis left foot Onset Date: Aug 12, 2022 Therapy Diagnosis Therapy Diagnosis: weakness Height/Weight Height (Feet): 5 Height (Inches): 7.00 Weight (Pounds): 190 Weight (Ounces): 3.2 Precautions Precautions/Isolations: Fall Prevention, Standard Precautions Weight Bear Status Weight Bearing Restriction: Weight Bearing/Tolerated Location Restriction: L LE wound on dorsum of foot, s/p toe amputation Referral Physician: Jannet Referral Reason: Evaluation/Treatment Medical History Pertinent Medical History: Alcoholism, CAD, COPD, DM, Neuropathy, Smoking Social History Current Living Status: Homeless ADL-Prior Level of Function SCALE: Activities may be completed with or without assistive devices. 2-Ychbmtgbro-emgtmko completes the activity by him/herself with no assistance from a helper. 5-Set-up or Clean-up Assistance-helper sets up or cleans up; patient completes activity. [place] assists only prior to or following the activity. 4-Supervision or Touching Assistance-helper provides verbal cues and/or touching/steadying and/or contact guard assistance as patient completes a ctivity. Assistance may be provided throughout the activity or intermittently. 3-Partial/Moderate Assistance-helper does LESS THAN HALF the effort. [place] lifts, holds or supports trunk or limbs, but provides less than half the effort. 2-Substantial/Maximal Assistance-helper does MORE THAN HALF the effort. [place] lifts or holds trunk or limbs and provides more than half the effort. 4-Vqxmhnpeu-rvmjvc does ALL the effort. Patient does none of the effort to complete the activity. Or, the assistance of 2 or more helpers is required for the patient to complete the activity. If activity was not attempted, code reason: 7-Patient Refused. 9-Not Applicable-not attempted and the patient did not perform the activity before the current illness, exacerbation or injury. 10-Not Attempted due to Environmental Limitations-(lack of equipment, weather restraints, etc.). 88-Not Attempted due to Medical Conditions or Safety Concerns. Self Care: Needed Some Help Functional Cognition: Needed Some Help OT Current Status Subjective Agreeable to therapy Mental Status/Objective Patient Orientation: Person, Place Attachments: Richardson Catheter, IV, Other-See Comments (wound vac) Current Upper Extremity ROM BUE ROM WFLS Upper Extremity Coordination BUE [facility] WFLs Upper Extremity Strength -4/5 grossly ADL-Treatment ADL-Current Set up for partial sponge bathe, OT performed difficult areas d/t time constraint Eating (QC): 6 (new dentures) Oral Hygiene (QC): 5 Shower/Bathe Self (QC): 3 Upper Body Dressing (QC): 4 Lower Body Dressing (QC): 4 On/Off Footwear (QC): 3 Toileting Hygiene (QC): 4 Education OT Patient Education: Correct positioning, Exercise program, Modified ADL techniques, Progress toward Goal/Update tx plan, Purpose of tx/functional activities, Reviewed precautions, Rehab process, Safety issues, Transfer techniques Teaching Recipient: Patient Teaching Methods: Demonstration, Discussion Response to Teaching: Verbalize Understanding, Reinforcement Needed OT Elevator Installer Goals Elevator Installer Goals Eating (QC): 6 Oral Hygiene (QC): 6 (WC level) Toileting Hygiene (QC): 6 Shower/Bathe Self (QC): 5 Upper Body Dressing (QC): 6 Lower Body Dressing (QC): 6 On/Off Footwear (QC): 6 1=Demonstrate adherence to instructed precautions during ADL tasks. 2=Patient will verbalize/demonstrate understanding of assistive devices/modifications for ADL. 3=Patient will improve strength/tolerance for activity to enable patient to perform ADL's. OT Education/Plan Problem List/Assessment Assessment: Decreased Activ Tolerance, Decreased Safety Aware, Impaired Cognition, Impaired Funct Balance, Impaired Self-Care Skills Discharge Recommendations Plan/Recommendations: Continue POC Treatment Plan/Plan of Care Treatment,Training & Education: Yes Patient would benefit from OT for education, treatment and training to promote independence in ADL's, mobility, safety and/or upper extremity function for ADL's. Plan of Care: ADL Retraining, Cognitive Retraining, Functional Mobility, Group Exercise/Act as Ind, UE Funct Exercise/Act Treatment Duration: Aug 25, 2022 Frequency: 3 times per week (3-5 times per week) Estimated Hrs Per Day: .25 hour per day Rehab Potential: Guarded Time Start Time: 10:50 Stop Time: 11:05 DATE: Aug 17, 2022 Total Time Billed (hr/min): 15 Billed Treatment Time EVM 15 min CARINE FRAZIER OT Aug 17, 2022 12:36
[2022-08-17 16:23] VITALS: BP 137/83
[2022-08-17 17:41] LABS: BASOPHILS % (AUTO) 0 % (0-10); EOSINOPHILS # (AUTO) 0.1 10^3/uL (0.0-0.3); EOSINOPHILS % (AUTO) 2 % (0-10); HEMATOCRIT 40 % (35-52); HEMOGLOBIN 12.9 g/dL (11.5-16.0); LYMPHOCYTES # (AUTO) 2.5 10^3/uL (1.0-4.0); LYMPHOCYTES % (AUTO) 31 % (12-44); MEAN CORPUSCULAR HEMOGLOBIN 27 pg (25-34); MEAN CORPUSCULAR HGB CONC 32 g/dL (32-36); MEAN CORPUSCULAR VOLUME 83 fL (80-99); MEAN PLATELET VOLUME 9.3 fL (9.0-12.2); MONOCYTES # (AUTO) 0.5 10^3/uL (0.0-1.0); MONOCYTES % (AUTO) 6 % (0-12); NEUTROPHILS # (AUTO) 4.7 10^3/uL (1.8-7.8); NEUTROPHILS % (AUTO) 60 % (42-75); PLATELET COUNT 349 10^3/uL (130-400); WHITE BLOOD COUNT 7.9 10^3/uL (4.3-11.0)
[2022-08-17 17:58] LABS: ALBUMIN 2.5 GM/DL (3.2-4.5); POTASSIUM 3.8 MMOL/L (3.6-5.0)
[2022-08-17 18:00] LABS: CALCIUM 8.8 MG/DL (8.5-10.1)
[2022-08-17 18:01] LABS: TOTAL PROTEIN 7.4 GM/DL (6.4-8.2)
[2022-08-17 18:03] LABS: BILIRUBIN,TOTAL 0.2 MG/DL (0.1-1.0)
[2022-08-17 18:04] LABS: CREATININE SERUM 0.65 MG/DL (0.60-1.30)
[2022-08-17 20:05] VITALS: BP 132/77
[2022-08-17] MEDS: SENNA W/DOCUSATE (SENOKOT S) TABLET PO SCH (21:07)
[2022-08-17] MEDS: LACTULOSE SYRUP 10GM/15ML (ENULOSE) 30ML UDC PO SCH (21:07)
[2022-08-17 23:48] VITALS: BP 127/75
[2022-08-18] MEDS: ENOXAPARIN 80 MG/0.8 ML (LOVENOX) SYR SC SCH ×2 (01:07→14:00)
[2022-08-18 05:46] LABS: BASOPHILS % (AUTO) 0 % (0-10); EOSINOPHILS # (AUTO) 0.1 10^3/uL (0.0-0.3); EOSINOPHILS % (AUTO) 1 % (0-10); HEMATOCRIT 38 % (35-52); HEMOGLOBIN 12.1 g/dL (11.5-16.0); LYMPHOCYTES # (AUTO) 3.6 10^3/uL (1.0-4.0); LYMPHOCYTES % (AUTO) 42 % (12-44); MEAN CORPUSCULAR HEMOGLOBIN 27 pg (25-34); MEAN CORPUSCULAR HGB CONC 32 g/dL (32-36); MEAN CORPUSCULAR VOLUME 84 fL (80-99); MEAN PLATELET VOLUME 9.6 fL (9.0-12.2); MONOCYTES # (AUTO) 0.6 10^3/uL (0.0-1.0); MONOCYTES % (AUTO) 7 % (0-12); NEUTROPHILS # (AUTO) 4.2 10^3/uL (1.8-7.8); NEUTROPHILS % (AUTO) 49 % (42-75); PLATELET COUNT 466 10^3/uL (130-400); WHITE BLOOD COUNT 8.6 10^3/uL (4.3-11.0)
[2022-08-18 05:58] LABS: ALBUMIN 2.5 GM/DL (3.2-4.5); BILIRUBIN,TOTAL 0.2 MG/DL (0.1-1.0); CALCIUM 8.9 MG/DL (8.5-10.1); CREATININE SERUM 0.61 MG/DL (0.60-1.30); POTASSIUM 3.7 MMOL/L (3.6-5.0); TOTAL PROTEIN 7.4 GM/DL (6.4-8.2)
[2022-08-18] MEDS: inSUlin ASPART (NovoLOG) 1 UNIT/0.01 ML (CHARGE PER UNIT) SC SCH ×4 (07:11→20:15)
--- NOTE | 2022-08-18 07:13 | Progress Note - Hospitalist ---
Subjective HPI/CC On Admission Date Seen by Provider: Aug 18, 2022 Time Seen by Provider: 11:00 Subjective/Events-last exam No major issues Bowels are moving Pain is controlled Review of Systems Musculoskeletal: leg pain, foot pain Objective Exam Vital Signs Vital Signs Date Time Temp Pulse Resp B/P (MAP) Pulse Ox O2 Delivery O2 Flow Rate FiO2 08/18/22 15:52 37.1 79 17 119/67 (84) 97 Room Air 08/18/22 09:26 0.00 Capillary Refill : Less Than 3 SecondsLess Than 3 Seconds General Appearance: No Apparent Distress, WD/WN, Chronically ill Results/Procedures Lab Laboratory Tests 08/17/22 17:36 08/18/22 05:12 Patient resulted labs reviewed. Assessment/Plan Assessment and Plan Assess & Plan/Chief Complaint Assessment: Osteomyelitis of left foot now with wound VAC after partial amputation Diabetes Constipation Illicit drug use Plan: IV antibiotics changed to p.o. Awaiting placement in custodial Wound VAC DC catheter PT and OT Clinical Quality Measures DVT/VTE Risk/Contraindication: Contraindications-Mechi: Other *list below* Other: possible dvt KAPIL NEWSOME DO Aug 18, 2022 07:13
[2022-08-18 08:45] VITALS: BP 101/68
[2022-08-18] MEDS: SENNA W/DOCUSATE (SENOKOT S) TABLET PO SCH ×2 (08:48→20:51)
[2022-08-18] MEDS: NICOTINE 21 MG (NICODERM) PATCH TD SCH (08:48)
[2022-08-18] MEDS: DOCUSATE SODIUM 100 MG (COLACE) CAP PO SCH ×2 (08:48→20:51)
[2022-08-18] MEDS: LACTULOSE SYRUP 10GM/15ML (ENULOSE) 30ML UDC PO SCH ×2 (08:48→20:51)
[2022-08-18] MEDS: NICOTINE PATCH REMOVAL TP SCH (08:49)
[2022-08-18] MEDS: SENNOSIDES 8.6 MG (SENOKOT) TAB PO SCH ×2 (08:53→20:51)
[2022-08-18] MEDS: AUGMENTIN 875 MG TAB (AMOXICILLIN/CLAVULANATE) PO SCH ×2 (08:53→20:51)
--- NOTE | 2022-08-18 10:10 | Physical Therapy Daily Note ---
PT Daily Note-Current Subjective Pt. in bed, agrees to sit up in chair. No c/o pain. Pain Section J - Health Conditions 1. Rarely or not at all 2. Occasionally 3. Frequently 4. Almost constantly 8. Unable to answer Pain Effect on Sleep: 1 Pain Interference with Therapy: 1 Pain Interference w/Day-to-Day: 1 Mental Status wound vac Transfers SCALE: Activities may be completed with or without assistive devices. 6-Ehdwhliuoj-ibtfvvu completes the activity by him/herself with no assistance from a helper. 5-Set-up or Clean-up Assistance-helper sets up or cleans up; patient completes activity. [place] assists only prior to or following the activity. 4-Supervision or Touching Assistance-helper provides verbal cues and/or touching/steadying and/or contact guard assistance as patient completes activity. Assistance may be provided throughout the activity or intermittently. 3-Partial/Moderate Assistance-helper does LESS THAN HALF the effort. [place] lifts, holds or supports trunk or limbs, but provides less than half the effort. 2-Substantial/Maximal Assistance-helper does MORE THAN HALF the effort. [place] lifts or holds trunk or limbs and provides more than half the effort. 0-Akaquqidw-enqbeb does ALL the effort. Patient does none of the effort to complete the activity. Or, the assistance of 2 or more helpers is required for the patient to complete the activity. If activity was not attempted, code reason: 7-Patient Refused. 9-Not Applicable-not attempted and the patient did not perform the activity before the current illness, exacerbation or injury. 10-Not Attempted due to Environmental Limitations-(lack of equipment, weather restraints, etc.). 88-Not Attempted due to Medical Conditions or Safety Concerns. Lying to Sitting/Side of Bed(Q: 4 Sit to Stand (QC): 4 Chair/Bxf-ou-Zohrc Xfer(QC): 4 incontinent of BM while in bed, assist from nurse with pericare while therapist is CGA with standing balance Gait Training Does the Patient Walk?: Yes Distance: 5 ft Gait Persons Needed: 1 Gait Assistive Device: FWW Assessment Current Status: Good Progress Pt. required only CGA with transfers and ambulation bed to chair today using FWW. Pt. was incontinent of BM and assist for pericare. Pt. up in chair post session with call light and all needs met. PT Restaurant Crew Member Goals Restaurant Crew Member Goals PT Restaurant Crew Member Goals Time Frame: Sep 01, 2022 Roll Left & Right (QC): 4 Sit to Lying (QC): 4 Lying-Sitting on Side/Bed(QC): 4 Sit to Stand (QC): 4 Chair/Wxf-yo-Lmjac Xfer(QC): 4 Toilet Transfer (QC): 4 Walk 10 feet (QC): 4 Walk 50ft with 2 Turns (QC): 4 PT Plan Treatment/Plan Treatment Plan: Continue Plan of Care Treatment Plan: Bed Mobility, Education, Functional Activity Maggy, Functional Strength, Gait, Safety, Therapeutic Exercise, Transfers Treatment Duration: Sep 01, 2022 Frequency: 6 times per week Estimated Hrs Per Day: .25 hour per day Time Time In: 822 Time Out: 835 DATE: Aug 18, 2022 Total Billed Treatment Time: 13 Total Billed Treatment 1, FA 13' SUNG BOBO PT Aug 18, 2022 10:10
--- NOTE | 2022-08-18 15:15 | Progress Note - Surgery ---
Subjective Time Seen by a Provider: 10:56 Subjective/Events-last exam Pt seen and examined, was sleeping but easily arousable. Denied pain. Review of Systems Pulmonary: No Dyspnea, No Cough Cardiovascular: No: Chest Pain, Palpitations Gastrointestinal: No: Nausea, Vomiting, Abdominal Pain Objective Exam Vital Signs Date Time Temp Pulse Resp B/P (MAP) Pulse Ox O2 Delivery O2 Flow Rate FiO2 08/18/22 09:26 98 Room Air 0.00 08/18/22 08:45 80 17 101/68 (79) 98 Room Air 08/17/22 23:48 37.1 83 12 127/75 (92) 97 Room Air 08/17/22 20:05 37.2 87 16 132/77 (95) 95 Room Air 08/17/22 20:00 Room Air 08/17/22 19:11 Room Air 08/17/22 16:23 36.6 89 16 137/83 (101) 95 Room Air l I & O 08/18/22 07:00 Intake Total 4098 ml Output Total 3825 ml Balance 273 ml Capillary Refill : Less Than 3 SecondsLess Than 3 Seconds General Appearance: No Apparent Distress, Chronically ill, Thin HEENT: PERRL/EOMI Respiratory: Lungs Clear, Normal Breath Sounds Cardiovascular: Regular Rate, Rhythm Gastrointestinal: normal bowel sounds, non tender, soft Extremity: Normal Capillary Refill, Other (left foot vac in place, no new areas redness/erythema) Neurologic/Psychiatric: Alert, Oriented x3 Results Lab Laboratory Tests 08/17/22 16:26: Glucometer 257H 08/17/22 17:36: White Blood Count 7.9, Red Blood Count 4.81, Hemoglobin 12.9, Hematocrit 40, Mean Corpuscular Volume 83, Mean Corpuscular Hemoglobin 27, Mean Corpuscular Hemoglobin Concent 32, Red Cell Distribution Width 14.9H, Platelet Count 349, Mean Platelet Volume 9.3, Immature Granulocyte % (Auto) 1, Neutrophils (%) (Auto) 60, Lymphocytes (%) (Auto) 31, Monocytes (%) (Auto) 6, Eosinophils (%) (Auto) 2, Basophils (%) (Auto) 0, Neutrophils # (Auto) 4.7, Lymphocytes # (Auto) 2.5, Monocytes # (Auto) 0.5, Eosinophils # (Auto) 0.1, Basophils # (Auto) 0.0, Immature Granulocyte # (Auto) 0.1, Sodium Level 138, Potassium Level 3.8, Chloride Level 104, Carbon Dioxide Level 25, Anion Gap 9, Blood Urea Nitrogen 9, Creatinine 0.65, Estimat Glomerular Filtration Rate 103, BUN/Creatinine Ratio 14, Glucose Level 264H, Calcium Level 8.8, Corrected Calcium 10.0, Total Bilirubin 0.2, Aspartate Amino Transf (AST/SGOT) 21, Alanine Aminotransferase (ALT/SGPT) 15, Alkaline Phosphatase 111, Total Protein 7.4, Albumin 2.5L 08/17/22 20:03: Glucometer 207H 08/18/22 05:12: White Blood Count 8.6, Red Blood Count 4.49, Hemoglobin 12.1, Hematocrit 38, Mean Corpuscular Volume 84, Mean Corpuscular Hemoglobin 27, Mean Corpuscular Hemoglobin Concent 32, Red Cell Distribution Width 14.9H, Platelet Count 466H, Mean Platelet Volume 9.6, Immature Granulocyte % (Auto) 1, Neutrophils (%) (Auto) 49, Lymphocytes (%) (Auto) 42, Monocytes (%) (Auto) 7, Eosinophils (%) (Auto) 1, Basophils (%) (Auto) 0, Neutrophils # (Auto) 4.2, Lymphocytes # (Auto) 3.6, Monocytes # (Auto) 0.6, Eosinophils # (Auto) 0.1, Basophils # (Auto) 0.0, Immature Granulocyte # (Auto) 0.1, Sodium Level 138, Potassium Level 3.7, Chloride Level 106, Carbon Dioxide Level 24, Anion Gap 8, Blood Urea Nitrogen 9, Creatinine 0.61, Estimat Glomerular Filtration Rate 104, BUN/Creatinine Ratio 15, Glucose Level 122H, Calcium Level 8.9, Corrected Calcium 10.1, Total Bilirubin 0.2, Aspartate Amino Transf (AST/SGOT) 16, Alanine Aminotransferase (ALT/SGPT) 13, Alkaline Phosphatase 97, Total Protein 7.4, Albumin 2.5L 08/18/22 05:47: Glucometer 184H 08/18/22 10:53: Glucometer 307H Microbiology 08/14/22 MRSA Screen - Final, Complete MRSA not isolated 08/12/22 Blood Culture - Final, Complete No growth 08/12/22 Urine Culture - Final, Complete YEAST Assessment/Plan Assessment/Plan Assessment/Plan Left foot necrosis with osteomyelitis left 4th and 5th phalange and metarsal head s/p debridement and TMA 4th and 5th digit. Encourage ambulation, switch to augmentin PO, Wound VAC change on Saturday and SS working on transfer to SNF Clinical Quality Measures DVT/VTE Risk/Contraindication: Contraindications-Mechi: Other *list below* Other: possible dvt MACK HERNÁNDEZ DO Aug 18, 2022 15:15
[2022-08-18 15:52] VITALS: BP 119/67
[2022-08-18 20:12] VITALS: BP 128/68
[2022-08-18 23:22] VITALS: BP 113/71
[2022-08-19] MEDS: ENOXAPARIN 80 MG/0.8 ML (LOVENOX) SYR SC SCH ×3 (01:07→23:47)
[2022-08-19 04:52] VITALS: BP 126/79
[2022-08-19] MEDS: inSUlin ASPART (NovoLOG) 1 UNIT/0.01 ML (CHARGE PER UNIT) SC SCH ×4 (05:38→20:47)
[2022-08-19 06:19] LABS: BASOPHILS % (AUTO) 0 % (0-10); EOSINOPHILS # (AUTO) 0.2 10^3/uL (0.0-0.3); EOSINOPHILS % (AUTO) 2 % (0-10); HEMATOCRIT 37 % (35-52); HEMOGLOBIN 11.4 g/dL (11.5-16.0); LYMPHOCYTES # (AUTO) 3.5 10^3/uL (1.0-4.0); LYMPHOCYTES % (AUTO) 38 % (12-44); MEAN CORPUSCULAR HEMOGLOBIN 26 pg (25-34); MEAN CORPUSCULAR HGB CONC 31 g/dL (32-36); MEAN CORPUSCULAR VOLUME 85 fL (80-99); MEAN PLATELET VOLUME 9.6 fL (9.0-12.2); MONOCYTES # (AUTO) 0.7 10^3/uL (0.0-1.0); MONOCYTES % (AUTO) 8 % (0-12); NEUTROPHILS # (AUTO) 4.7 10^3/uL (1.8-7.8); NEUTROPHILS % (AUTO) 51 % (42-75); PLATELET COUNT 416 10^3/uL (130-400); WHITE BLOOD COUNT 9.2 10^3/uL (4.3-11.0)
--- NOTE | 2022-08-19 06:28 | Progress Note - Hospitalist ---
Subjective HPI/CC On Admission Date Seen by Provider: Aug 19, 2022 Time Seen by Provider: 09:00 Subjective/Events-last exam Patient doing about the same Denies any new issues Awaiting usp placement Objective Exam Vital Signs Vital Signs Date Time Temp Pulse Resp B/P (MAP) Pulse Ox O2 Delivery O2 Flow Rate FiO2 08/19/22 08:50 36.3 84 98 21 08/19/22 08:00 Room Air 0.00 08/19/22 07:16 17 81/55 (64) Capillary Refill : Less Than 3 SecondsLess Than 3 Seconds General Appearance: No Apparent Distress, WD/WN, Chronically ill Respiratory: Lungs Clear Cardiovascular: Regular Rate, Rhythm Neurologic/Psychiatric: Alert, Oriented x3, No Motor/Sensory Deficits, Normal Mood/Affect Results/Procedures Lab Laboratory Tests 08/19/22 05:20 Patient resulted labs reviewed. Assessment/Plan Assessment and Plan Assess & Plan/Chief Complaint Assessment: Osteomyelitis of left foot now with wound VAC after partial amputation Diabetes Constipation Illicit drug use Plan: IV antibiotics changed to p.o. Awaiting placement in usp Wound VAC DC catheter PT and OT Clinical Quality Measures DVT/VTE Risk/Contraindication: Contraindications-Mechi: Other *list below* Other: possible dvt KAPIL NEWSOME DO Aug 19, 2022 06:28
[2022-08-19 06:34] LABS: ALBUMIN 2.6 GM/DL (3.2-4.5); BILIRUBIN,TOTAL 0.2 MG/DL (0.1-1.0); CREATININE SERUM 0.73 MG/DL (0.60-1.30); POTASSIUM 4.2 MMOL/L (3.6-5.0); TOTAL PROTEIN 7.6 GM/DL (6.4-8.2)
[2022-08-19 07:16] VITALS: BP 81/55
[2022-08-19] MEDS: DOCUSATE SODIUM 100 MG (COLACE) CAP PO SCH ×2 (07:59→20:46)
[2022-08-19] MEDS: SENNA W/DOCUSATE (SENOKOT S) TABLET PO SCH ×2 (07:59→20:47)
[2022-08-19] MEDS: LACTULOSE SYRUP 10GM/15ML (ENULOSE) 30ML UDC PO SCH ×2 (07:59→20:46)
[2022-08-19] MEDS: SENNOSIDES 8.6 MG (SENOKOT) TAB PO SCH ×2 (07:59→20:47)
[2022-08-19] MEDS: NICOTINE PATCH REMOVAL TP SCH (08:00)
[2022-08-19] MEDS: LORazepam 0.5 MG (ATIVAN) TABLET PO PRN ×2 (08:00→13:41)
[2022-08-19] MEDS: NICOTINE 21 MG (NICODERM) PATCH TD SCH (08:00)
[2022-08-19] MEDS: AUGMENTIN 875 MG TAB (AMOXICILLIN/CLAVULANATE) PO SCH ×2 (08:00→20:45)
[2022-08-19 08:50] VITALS: BP 81/55
--- NOTE | 2022-08-19 13:44 | Progress Note - Surgery ---
Subjective Time Seen by a Provider: 11:21 Subjective/Events-last exam Pt seen and examined, was sitting up in chair but sleeping. Easily arousable and denied pain in foot. Review of Systems Pulmonary: No Dyspnea, No Cough Cardiovascular: No: Chest Pain, Palpitations Gastrointestinal: No: Nausea, Vomiting, Abdominal Pain Musculoskeletal: No: foot pain Objective Exam Vital Signs Date Time Temp Pulse Resp B/P (MAP) Pulse Ox O2 Delivery O2 Flow Rate FiO2 08/19/22 08:50 36.3 84 98 21 08/19/22 08:00 98 Room Air 0.00 08/19/22 07:16 36.3 86 17 81/55 (64) 98 Room Air 08/19/22 07:15 98 Room Air 0.00 08/19/22 04:52 36.2 76 18 126/79 (95) 98 Room Air 08/18/22 23:22 36.6 80 16 113/71 (85) 95 Room Air 08/18/22 20:12 37.6 74 16 128/68 (88) 94 Room Air 08/18/22 20:00 Room Air 08/18/22 15:52 37.1 79 17 119/67 (84) 97 Room Air I & O 08/19/22 07:00 Intake Total 1825 ml Output Total 800 ml Balance 1025 ml Capillary Refill : Less Than 3 SecondsLess Than 3 Seconds General Appearance: No Apparent Distress, Chronically ill, Thin HEENT: PERRL/EOMI Respiratory: Lungs Clear, Normal Breath Sounds, No Accessory Muscle Use, No Respiratory Distress Cardiovascular: Regular Rate, Rhythm Extremity: Normal Capillary Refill, Other (left foot vac in place, no new areas redness/erythema) Results Lab Laboratory Tests 08/18/22 15:43: Glucometer 204H 08/18/22 20:14: Glucometer 171H 08/19/22 05:20: White Blood Count 9.2, Red Blood Count 4.32, Hemoglobin 11.4L, Hematocrit 37, Mean Corpuscular Volume 85, Mean Corpuscular Hemoglobin 26, Mean Corpuscular Hemoglobin Concent 31L, Red Cell Distribution Width 14.9H, Platelet Count 416H, Mean Platelet Volume 9.6, Immature Granulocyte % (Auto) 1, Neutrophils (%) (Auto) 51, Lymphocytes (%) (Auto) 38, Monocytes (%) (Auto) 8, Eosinophils (%) (A uto) 2, Basophils (%) (Auto) 0, Neutrophils # (Auto) 4.7, Lymphocytes # (Auto) 3.5, Monocytes # (Auto) 0.7, Eosinophils # (Auto) 0.2, Basophils # (Auto) 0.0, Immature Granulocyte # (Auto) 0.1, Sodium Level 134L, Potassium Level 4.2, Ch loride Level 102, Carbon Dioxide Level 24, Anion Gap 8, Blood Urea Nitrogen 10, Creatinine 0.73, Estimat Glomerular Filtration Rate 96, BUN/Creatinine Ratio 14, Glucose Level 350H, Calcium Level 9.0, Corrected Calcium 10.1, Total Bilirubin 0.2, Aspartate Amino Transf (AST/SGOT) 18, Alanine Aminotransferase (ALT/SGPT) 13, Alkaline Phosphatase 96, Total Protein 7.6, Albumin 2.6L 08/19/22 05:21: Glucometer 341H 08/19/22 10:43: Glucometer 167H Microbiology 08/14/22 MRSA Screen - Final, Complete MRSA not isolated 08/12/22 Blood Culture - Final, Complete No growth 08/12/22 Urine Culture - Final, Complete YEAST Assessment/Plan Assessment/Plan Assessment/Plan Left foot necrosis with osteomyelitis left 4th and 5th phalange and metarsal head s/p debridement and TMA 4th and 5th digit. Encourage ambulation, switch to augmentin PO, Wound VAC change on Saturday and SS working on transfer to SNF Clinical Quality Measures DVT/VTE Risk/Contraindication: Contraindications-Mechi: Other *list below* Other: possible dvt MACK HERNÁNDEZ DO Aug 19, 2022 13:44
[2022-08-19 15:34] VITALS: BP_SYST 103; BP_SYST 120; BP_DIAS 57; BP_DIAS 62
[2022-08-19 19:18] VITALS: BP 98/58
[2022-08-19 23:43] VITALS: BP 109/67
[2022-08-20] MEDS: inSUlin ASPART (NovoLOG) 1 UNIT/0.01 ML (CHARGE PER UNIT) SC SCH ×4 (05:39→20:26)
--- NOTE | 2022-08-20 05:50 | Progress Note - Hospitalist ---
Subjective HPI/CC On Admission Date Seen by Provider: Aug 20, 2022 Time Seen by Provider: 09:00 Subjective/Events-last exam No major issues Awaiting [facility] Review of Systems General: Fatigue, Malaise Objective Exam Vital Signs Vital Signs Date Time Temp Pulse Resp B/P (MAP) Pulse Ox O2 Delivery O2 Flow Rate FiO2 08/20/22 08:11 36.7 82 22 97/58 (71) 97 Room Air 08/19/22 23:43 0.00 0.00 08/19/22 08:50 21 Capillary Refill : Less Than 3 SecondsLess Than 3 Seconds General Appearance: No Apparent Distress, WD/WN, Chronically ill Respiratory: Lungs Clear Results/Procedures Lab Laboratory Tests 08/20/22 05:28 Patient resulted labs reviewed. Assessment/Plan Assessment and Plan Assess & Plan/Chief Complaint Assessment: Osteomyelitis of left foot now with wound VAC after partial amputation Diabetes Constipation Illicit drug use Plan: IV antibiotics changed to p.o. Awaiting placement in [facility] Wound VAC PT and OT Clinical Quality Measures DVT/VTE Risk/Contraindication: Contraindications-Mechi: Other *list below* Other: possible dvt KAPIL NEWSOME DO Aug 20, 2022 05:50
[2022-08-20 06:11] LABS: BASOPHILS % (AUTO) 0 % (0-10); EOSINOPHILS # (AUTO) 0.1 10^3/uL (0.0-0.3); EOSINOPHILS % (AUTO) 1 % (0-10); HEMATOCRIT 37 % (35-52); HEMOGLOBIN 11.5 g/dL (11.5-16.0); LYMPHOCYTES # (AUTO) 3.3 10^3/uL (1.0-4.0); LYMPHOCYTES % (AUTO) 35 % (12-44); MEAN CORPUSCULAR HEMOGLOBIN 26 pg (25-34); MEAN CORPUSCULAR HGB CONC 32 g/dL (32-36); MEAN CORPUSCULAR VOLUME 84 fL (80-99); MEAN PLATELET VOLUME 9.3 fL (9.0-12.2); MONOCYTES # (AUTO) 0.6 10^3/uL (0.0-1.0); MONOCYTES % (AUTO) 7 % (0-12); NEUTROPHILS # (AUTO) 5.4 10^3/uL (1.8-7.8); NEUTROPHILS % (AUTO) 56 % (42-75); PLATELET COUNT 421 10^3/uL (130-400); WHITE BLOOD COUNT 9.6 10^3/uL (4.3-11.0)
[2022-08-20 06:20] LABS: ALBUMIN 2.6 GM/DL (3.2-4.5)
[2022-08-20 06:21] LABS: POTASSIUM 4.5 MMOL/L (3.6-5.0)
[2022-08-20 06:22] LABS: CALCIUM 8.9 MG/DL (8.5-10.1)
[2022-08-20 06:23] LABS: TOTAL PROTEIN 7.4 GM/DL (6.4-8.2)
[2022-08-20 06:25] LABS: BILIRUBIN,TOTAL 0.2 MG/DL (0.1-1.0)
[2022-08-20 06:27] LABS: CREATININE SERUM 0.73 MG/DL (0.60-1.30)
[2022-08-20 08:11] VITALS: BP 97/58
[2022-08-20] MEDS: NICOTINE PATCH REMOVAL TP SCH (09:14)
[2022-08-20] MEDS: NICOTINE 21 MG (NICODERM) PATCH TD SCH (09:15)
[2022-08-20] MEDS: LACTULOSE SYRUP 10GM/15ML (ENULOSE) 30ML UDC PO SCH ×2 (09:15→20:27)
[2022-08-20] MEDS: SENNOSIDES 8.6 MG (SENOKOT) TAB PO SCH ×2 (09:15→20:27)
[2022-08-20] MEDS: DOCUSATE SODIUM 100 MG (COLACE) CAP PO SCH ×2 (09:15→20:27)
[2022-08-20] MEDS: LORazepam 0.5 MG (ATIVAN) TABLET PO PRN (09:15)
[2022-08-20] MEDS: AUGMENTIN 875 MG TAB (AMOXICILLIN/CLAVULANATE) PO SCH ×2 (09:15→20:27)
[2022-08-20] MEDS: SENNA W/DOCUSATE (SENOKOT S) TABLET PO SCH ×2 (09:16→20:27)
--- NOTE | 2022-08-20 10:58 | Physical Therapy Daily Note ---
PT Daily Note-Current Subjective Patient very slow to verbally respond. Agrees to therapy. Pain Section J - Health Conditions 1. Rarely or not at all 2. Occasionally 3. Frequently 4. Almost constantly 8. Unable to answer Pain Effect on Sleep: 1 Pain Interference with Therapy: 1 Pain Interference w/Day-to-Day: 1 Mental Status Patient Orientation: Person wound vac left foot Transfers SCALE: Activities may be completed with or without assistive devices. 4-Batihsezuq-kpjubdd completes the activity by him/herself with no assistance from a helper. 5-Set-up or Clean-up Assistance-helper sets up or cleans up; patient completes activity. [place] assists only prior to or following the activity. 4-Supervision or Touching Assistance-helper provides verbal cues and/or touching/steadying and/or contact guard assistance as patient completes activity. Assistance may be provided throughout the activity or intermittently. 3-Partial/Moderate Assistance-helper does LESS THAN HALF the effort. [place] lifts, holds or supports trunk or limbs, but provides less than half the effort. 2-Substantial/Maximal Assistance-helper does MORE THAN HALF the effort. [place] lifts or holds trunk or limbs and provides more than half the effort. 1-Vmvyiqrvg-rfdufx does ALL the effort. Patient does none of the effort to complete the activity. Or, the assistance of 2 or more helpers is required for the patient to complete the activity. If activity was not attempted, code reason: 7-Patient Refused. 9-Not Applicable-not attempted and the patient did not perform the activity before the current illness, exacerbation or injury. 10-Not Attempted due to Environmental Limitations-(lack of equipment, weather restraints, etc.). 88-Not Attempted due to Medical Conditions or Safety Concerns. Sit to Stand (QC): 4 Chair/Gtx-bl-Idncj Xfer(QC): 4 Gait Training Distance: 125' Walk 10 feet (QC): 4 Walk 50 ft with 2 Turns(QC): 4 Gait Assistive Device: FWW CGA for safety/slow steady gait sequence Assessment Patient tolerated treatment well and remains up in recliner with chair alarm ac tivated. Patient requires VC's for body placement in FWW PT Senior Living Goals Senior Living Goals PT Director Of Nuclear Medicine Goals Time Frame: Sep 01, 2022 Roll Left & Right (QC): 4 Sit to Lying (QC): 4 Lying-Sitting on Side/Bed(QC): 4 Sit to Stand (QC): 4 Chair/Bzv-it-Dtmxt Xfer(QC): 4 Toilet Transfer (QC): 4 Walk 10 feet (QC): 4 Walk 50ft with 2 Turns (QC): 4 PT Plan Treatment/Plan Treatment Plan: Continue Plan of Care Treatment Plan: Bed Mobility, Education, Functional Activity Maggy, Functional Strength, Gait, Safety, Therapeutic Exercise, Transfers Treatment Duration: Sep 01, 2022 Frequency: 6 times per week Estimated Hrs Per Day: .25 hour per day Time Time In: 955 Time Out: 1010 DATE: Aug 20, 2022 Total Billed Treatment Time: 15 Total Billed Treatment 1 visit GT 15 min KATARZYNA MCDONALD PT Aug 20, 2022 10:58
--- NOTE | 2022-08-20 11:13 | Occupational Ther Daily Note ---
OT Current Status-Daily Note Subjective On arrival patient completing shower, OT and patient complete dressing Mental Status/Objective Patient Orientation: Person, Place, Situation Attachments: Other-See Comments (wound vac, IV port covered for shower) ADL-Treatment Therapy Code Descriptions/Definitions Functional [place] Measure: 0=Not Assessed/NA 4=Minimal Assistance 1=Total Assistance 5=Supervision or Setup 2=Maximal Assistance 6=Modified [place] 3=Moderate Assistance 7=Complete IndependenceSCALE: Activities may be completed with or without assistive devices. 4-Oklcsjenfg-stadodj completes the activity by him/herself with no assistance from a helper. 5-Set-up or Clean-up Assistance-helper sets up or cleans up; patient completes activity. [place] assists only prior to or following the activity. 4-Supervision or Touching Assistance-helper provides verbal cues and/or touching/steadying and/or contact guard assistance as patient completes activity. Assistance may be provided throughout the activity or intermittently. 3-Partial/Moderate Assistance-helper does LESS THAN HALF the effort. [place] lifts, holds or supports trunk or limbs, but provides less than half the effort. 2-Substantial/Maximal Assistance-helper does MORE THAN HALF the effort. [place] lifts or holds trunk or limbs and provides more than half the effort. 6-Ttcdtoqdk-zdqlfp does ALL the effort. Patient does none of the effort to complete the activity. Or, the assistance of 2 or more helpers is required for the patient to complete the activity. If activity was not attempted, code reason: 7-Patient Refused. 9-Not Applicable-not attempted and the patient did not perform the activity before the current illness, exacerbation or injury. 10-Not Attempted due to Environmental Limitations-(lack of equipment, weather restraints, etc.). 88-Not Attempted due to Medical Conditions or Safety Concerns. Eating (QC): 6 Oral Hygiene (QC): 4 Bathing Location: L Arm, R Arm, L Upper Leg, R Upper Leg, L Lower Leg (including foot), R Lower Leg (including foot), Chest, Abdomen, Buttocks, Perineal Area Shower/Bathe Self (QC): 3 Upper Body Dressing (QC): 4 Lower Body Dressing (QC): 3 On/Off Footwear: 3 Toileting Hygiene (QC): 3 Toilet Transfer (QC): 3 Education OT Patient Education: Correct positioning, Exercise program, Modified ADL techniques, Progress toward Goal/Update tx plan, Purpose of tx/functional activities, Reviewed precautions, Rehab process, Safety issues, Transfer techniques, Use of adapted equipment Teaching Recipient: Patient Teaching Methods: Demonstration, Discussion Response to Teaching: Reinforcement Needed OT Custodial Goals Custodial Goals Eating (QC): 6 Oral Hygiene (QC): 6 (WC level) Toileting Hygiene (QC): 6 Shower/Bathe Self (QC): 5 Upper Body Dressing (QC): 6 Lower Body Dressing (QC): 6 On/Off Footwear (QC): 6 1=Demonstrate adherence to instructed precautions during ADL tasks. 2=Patient will verbalize/demonstrate understanding of assistive devices/modifications for ADL. 3=Patient will improve strength/tolerance for activity to enable patient to perform ADL's. OT Education/Plan Problem List/Assessment Assessment: Decreased Activ Tolerance, Decreased Safety Aware, Decreased UE Strength, Impaired Cognition, Impaired Self-Care Skills Discharge Recommendations Plan/Recommendations: Continue POC Treatment Plan/Plan of Care Patient would benefit from OT for education, treatment and training to promote independence in ADL's, mobility, safety and/or upper extremity function for ADL's. Plan of Care: ADL Retraining, Cognitive Retraining, Functional Mobility, Group Exercise/Act as Ind, UE Funct Exercise/Act Treatment Duration: Aug 25, 2022 Frequency: 3 times per week (3-5 times per week) Estimated Hrs Per Day: .25 hour per day Rehab Potential: Guarded Time Start Time: 09:56 Stop Time: 10:10 DATE: Aug 20, 2022 Total Time Billed (hr/min): 14 Billed Treatment Time ADL 14 min CARINE FRAZIER OT Aug 20, 2022 11:13
[2022-08-20] MEDS: ENOXAPARIN 80 MG/0.8 ML (LOVENOX) SYR SC SCH ×2 (11:57→23:35)
[2022-08-20 16:00] VITALS: BP 122/68
--- NOTE | 2022-08-20 16:01 | Progress Note ---
Subjective Date Seen by a Provider: Aug 20, 2022 Time Seen by a Provider: 15:00 Subjective/Events-last exam doing ok. wound starting to granulate in. ambulating with assistance. Objective Exam Vital Signs Date Time Temp Pulse Resp B/P (MAP) Pulse Ox O2 Delivery O2 Flow Rate FiO2 08/20/22 08:11 36.7 82 22 97/58 (71) 97 Room Air 08/20/22 08:00 Room Air 08/19/22 23:43 36.4 81 18 109/67 (81) 94 Room Air 0.00 0.00 08/19/22 20:00 Room Air 08/19/22 19:18 36.4 86 20 98/58 (71) 98 Room Air I & O 08/20/22 07:00 Intake Total 1660 ml Balance 1660 ml Capillary Refill : Less Than 3 SecondsLess Than 3 Seconds General Appearance: No Apparent Distress HEENT: PERRL/EOMI Neck: Full Range of Motion Respiratory: Chest Non Tender, Rhonci, Wheezing Cardiovascular: Regular Rate, Rhythm Gastrointestinal: normal bowel sounds, non tender, soft Extremity: Normal Capillary Refill Neurologic/Psychiatric: Alert Skin: Normal Color Lymphatic: No Adenopathy Results Lab Laboratory Tests 08/19/22 20:05: Glucometer 123H 08/20/22 05:27: Glucometer 249H 08/20/22 05:28: White Blood Count 9.6, Red Blood Count 4.36, Hemoglobin 11.5, Hematocrit 37, Mean Corpuscular Volume 84, Mean Corpuscular Hemoglobin 26, Mean Corpuscular Hemoglobin Concent 32, Red Cell Distribution Width 14.8H, Platelet Count 421H, Mean Platelet Volume 9.3, Immature Granulocyte % (Auto) 1, Neutrophils (%) (Auto) 56, Lymphocytes (%) (Auto) 35, Monocytes (%) (Auto) 7, Eosinophils (%) (Auto) 1, Basophils (%) (Auto) 0, Neutrophils # (Auto) 5.4, Lymphocytes # (Auto) 3.3, Monocytes # (Auto) 0.6, Eosinophils # (Auto) 0.1, Basophils # (Auto) 0.0, Immature Granulocyte # (Auto) 0.1, Sodium Level 134L, Potassium Level 4.5, Chloride Level 100, Carbon Dioxide Level 26, Anion Gap 8, Blood Urea Nitrogen 14, Creatinine 0.73, Estimat Glomerular Filtration Rate 96, BUN/Creatinine Ratio 19, Glucose Level 279H, Calcium Level 8.9, Corrected Calcium 10.0, Total Bilirubin 0.2, Aspartate Amino Transf (AST/SGOT) 14, Alanine Aminotransferase (ALT/SGPT) 12, Alkaline Phosphatase 82, Total Protein 7.4, Albumin 2.6L 08/20/22 10:32: Glucometer 228H Microbiology 08/14/22 MRSA Screen - Final, Complete MRSA not isolated 08/12/22 Blood Culture - Final, Complete No growth 08/12/22 Urine Culture - Final, Complete YEAST Assessment/Plan Assessment/Plan Assess & Plan/Chief Complaint left foot necrosis with osteomyelitis left 4th and 5th phalange and metarsal head s/p debridement and TMA 4th and 5th digit. continue ambulation. ok to switch to augmentin PO. SS working on transfer to SNF. scheduled for transfer to SNF on (08/21). Clinical Quality Measures DVT/VTE Risk/Contraindication: Contraindications-Mechi: Other *list below* Other: possible dvt MICKY KUMAR MD Aug 20, 2022 16:01
[2022-08-20 23:12] VITALS: BP 105/58
[2022-08-21] MEDS: inSUlin ASPART (NovoLOG) 1 UNIT/0.01 ML (CHARGE PER UNIT) SC SCH ×2 (05:37→11:35)
[2022-08-21 05:52] LABS: BASOPHILS % (AUTO) 0 % (0-10); EOSINOPHILS # (AUTO) 0.2 10^3/uL (0.0-0.3); EOSINOPHILS % (AUTO) 2 % (0-10); HEMATOCRIT 37 % (35-52); HEMOGLOBIN 11.6 g/dL (11.5-16.0); LYMPHOCYTES # (AUTO) 3.4 10^3/uL (1.0-4.0); LYMPHOCYTES % (AUTO) 38 % (12-44); MEAN CORPUSCULAR HEMOGLOBIN 27 pg (25-34); MEAN CORPUSCULAR HGB CONC 32 g/dL (32-36); MEAN CORPUSCULAR VOLUME 84 fL (80-99); MONOCYTES # (AUTO) 0.7 10^3/uL (0.0-1.0); MONOCYTES % (AUTO) 8 % (0-12); NEUTROPHILS # (AUTO) 4.7 10^3/uL (1.8-7.8); NEUTROPHILS % (AUTO) 52 % (42-75); PLATELET COUNT 444 10^3/uL (130-400)
[2022-08-21] MEDS ORDERED: NICO1PAT34 TD (06:05)
[2022-08-21] MEDS ORDERED: SENN-271 PO (06:05)
[2022-08-21] MEDS ORDERED: LORA-404 PO (06:05)
[2022-08-21] MEDS ORDERED: AMOX1TAB12 PO (06:05)
[2022-08-21] MEDS ORDERED: INSU100V5 SQ (06:05)
[2022-08-21] MEDS ORDERED: INSU100V16 SQ (06:05)
[2022-08-21] MEDS ORDERED: ENOX40DI13 SQ (06:05)
[2022-08-21] MEDS ORDERED: OXC5T PO (06:05)
[2022-08-21] MEDS ORDERED: LACT20SO2 PO (06:05)
[2022-08-21] MEDS ORDERED: ACET325T49 PO (06:05)
--- NOTE | 2022-08-21 06:06 | Discharge Inst-Skilled Nursing ---
Discharge Inst-Skilled NF Reconcile Patient Problems Problems Reviewed?: Yes Patient Instructions Patient Problems: Foot osteomyelitis s/p partial amputation Meth use DM Patient Instructions: Wound vac Consult/Follow Up/Orders Skilled NF Admit to: [facility] Certification (SNF) I certify that SNF services are required to be given on an inpatient basis because of the above named patient's need for halfway care on a continuing basis for the conditions(s) for which he/she was receiving inpatient hospital services prior to his/her transfer to the SNF. Jail Facility Order: Nursing Services, Technology Education Teacher-Evaluate & Treat, Physical Therapy-Evaluate & Treat Oxygen Delivery Method: Room Air Discharge Diet: ADA Diet Daily Activity as Tolerated: Yes Resuscitation Status: Full Code New & Resume Previous Orders New Medications: Enoxaparin Sodium (Lovenox) 40 Mg/0.4 Ml Syringe 40 MG SQ DAILY, #14 EA Insulin Aspart (Novolog) 100 Unit/Ml Susp 5 UNIT SQ AC, #10 ML Lorazepam (Ativan) 0.5 Mg Tablet 0.5 MG PO TID PRN for ANXIETY, #15 TAB Acetaminophen (Acetaminophen) 325 Mg Tablet 650 MG PO Q4H PRN for TEMPERATURE, #30 TAB Amoxicillin/Potassium Clav (Amox Tr-K Clv 875-125 mg Tab) 875 Mg-125 Mg Tablet 875 MG PO BID, #12 TAB Insulin Determir (Levemir) 100 Unit/Ml Soln 18 UNIT SQ BID, #10 ML Lactulose (Lactulose) 20 Gram/30 Ml Solution 10 GM PO BID, #120 ML Nicotine (Nicoderm Cq) 21 Mg/24 Hour Patch.td24 21 MG TD DAILY@0900, #30 PATCH Oxycodone Hcl (Oxyir Tablet) 5 Mg Tab 5 MG PO Q4HR PRN for PAIN-SEE DOSE INSTRUCTIONS, #20 TAB Sennosides/Docusate Sodium (Stool Softener-Laxative Tablet) 8.6 Mg-50 Mg Tablet 1 EA PO BID, #60 TAB Billie Power Aug 21, 2022 06:05 BILLIE POWER DO Aug 21, 2022 06:06
--- NOTE | 2022-08-21 06:07 | Discharge Summary ---
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 She did have uncontrolled diabetes requiring insulin administration. Labs remained stable. Meth use withdraw resolved. She was deemed stable for discharge to [facility] and rehab to further recover before discharge home. Labs and Pending Lab Test: Laboratory Tests 08/20/22 10:32: Glucometer 228H 08/20/22 16:20: Glucometer 168H 08/20/22 20:16: Glucometer 264H 08/21/22 05:29: Glucometer 146H 08/21/22 05:30: White Blood Count [Pending], Red Blood Count [Pending], Hemoglobin [Pending], Hematocrit [Pending], Mean Corpuscular Volume [Pending], Mean Corpuscular Hemoglobin [Pending], Mean Corpuscular Hemoglobin Concent [Pending], Red Cell Distribution Width [Pending], Platelet Count [Pending], Mean Platelet Volume [Pending], Neutrophils (%) (Auto) [Pending], Lymphocytes (%) (Auto) [Pending], Monocytes (%) (Auto) [Pending], Eosinophils (%) (Auto) [Pending], Basophils (%) (Auto) [Pending], Neutrophils # (Auto) [Pending], Lymphocytes # (Auto) [Pending], Monocytes # (Auto) [Pending], Eosinophils # (Auto) [Pending], Basophils # (Auto) [Pending], Sodium Level [Pending], Potassium Level [Pending], Chloride Level [Pending], Carbon Dioxide Level [Pending], Anion Gap [Pending], Blood Urea Nitrogen [Pending], Creatinine [Pending], BUN/Creatinine Ratio [Pending], Glucose Level [Pending], Calcium Level [Pending], Corrected Calcium [Pending], Total Bilirubin [Pending], Aspartate Amino Transf (AST/SGOT) [Pending], Alanine Aminotransferase (ALT/SGPT) [Pending], Alkaline Phosphatase [Pending], Total Protein [Pending], Albumin [Pending] Microbiology 08/14/22 MRSA Screen - Final, Complete MRSA not isolated 08/12/22 Blood Culture - Final, Complete No growth 08/12/22 Urine Culture - Final, Complete YEAST Home Meds Active Ativan (Lorazepam) 0.5 Mg Tablet 0.5 Mg PO TID PRN Lovenox (Enoxaparin Sodium) 40 Mg/0.4 Ml Syringe 40 Mg SQ DAILY Novolog (Insulin Aspart) 100 Unit/Ml Susp 5 Unit SQ AC Levemir (Insulin Determir) 100 Unit/Ml Soln 18 Unit SQ BID Stool Softener-Laxative Tablet (Sennosides/Docusate Sodium) 8.6 Mg-50 Mg Tablet 1 Ea PO BID Lactulose 20 Gram/30 Ml Solution 10 Gm PO BID Acetaminophen 325 Mg Tablet 650 Mg PO Q4H PRN Oxyir Tablet (Oxycodone HCl) 5 Mg Tab 5 Mg PO Q4HR PRN Nicoderm Cq (Nicotine) 21 Mg/24 Hour Patch.td24 21 Mg TD DAILY@0900 Amox Tr-K Clv 875-125 mg Tab (Amoxicillin/Potassium Clav) 875 Mg-125 Mg Tablet 875 Mg PO BID Assessment/Pt Instructions PCP for intermediate rounds Discharge Planning: <30 minutes discharge planning Discharge Instructions Discharge Diet: ADA Diet Discharge Physical Examination Vital Signs Vital Signs Date Time Temp Pulse Resp B/P (MAP) Pulse Ox O2 Delivery O2 Flow Rate FiO2 08/20/22 23:12 36.6 78 14 105/58 (74) 95 Room Air 0.00 0.00 08/19/22 08:50 21 General Appearance: No Apparent Distress, WD/WN, Chronically ill, Thin Neurologic/Psychiatric: Alert, Oriented x3, No Motor/Sensory Deficits, Normal Mood/Affect Allergies: Coded Allergies: levofloxacin (Verified Allergy, Unknown, 06/21/14) sulfamethoxazole (Unverified Allergy, Unknown, 06/21/14) trimethoprim (Unverified Allergy, Unknown, 06/21/14) Discharge Summary Date of Admission Aug 12, 2022 at 13:07 Date of Discharge Discharge Date: Aug 21, 2022 Discharge Diagnosis Assessment: Osteomyelitis of left foot now with wound VAC after partial amputation Diabetes Constipation Illicit drug use Plan: IV antibiotics changed to p.o. Awaiting placement in intermediate Wound VAC PT and OT Clinical Quality Measures DVT/VTE Risk/Contraindication: Contraindications-Mechi: Other *list below* Other: possible dvt KAPIL NEWSOME DO Aug 21, 2022 06:07
[2022-08-21 06:19] LABS: ALBUMIN 2.7 GM/DL (3.2-4.5); BILIRUBIN,TOTAL 0.2 MG/DL (0.1-1.0); CREATININE SERUM 0.64 MG/DL (0.60-1.30); POTASSIUM 4.2 MMOL/L (3.6-5.0); TOTAL PROTEIN 7.6 GM/DL (6.4-8.2)
[2022-08-21 07:17] VITALS: BP 97/59
[2022-08-21] MEDS: NICOTINE PATCH REMOVAL TP SCH (08:53)
[2022-08-21] MEDS: NICOTINE 21 MG (NICODERM) PATCH TD SCH (08:53)
[2022-08-21] MEDS: LACTULOSE SYRUP 10GM/15ML (ENULOSE) 30ML UDC PO SCH (08:54)
[2022-08-21] MEDS: SENNOSIDES 8.6 MG (SENOKOT) TAB PO SCH (08:56)
[2022-08-21] MEDS: LORazepam 0.5 MG (ATIVAN) TABLET PO PRN (08:56)
[2022-08-21] MEDS: AUGMENTIN 875 MG TAB (AMOXICILLIN/CLAVULANATE) PO SCH (08:56)
[2022-08-21] MEDS: DOCUSATE SODIUM 100 MG (COLACE) CAP PO SCH (08:56)
[2022-08-21] MEDS: SENNA W/DOCUSATE (SENOKOT S) TABLET PO SCH (08:56)
[2022-08-21 13:11] VITALS: BP 97/59
--- NOTE | 2022-08-22 11:09 | Physician Query Clarification ---
PQ-Uncertain Diagnosis Admission/Discharge Admission Date: Aug 12, 2022 at 13:07 Discharge Date: Aug 21, 2022 at 13:10 Dr. Power, The medical record reflects the following clinical scenario: History/Risk Factors: DM Osteomyelitis, ulcer Lt 4th, 5th metatarsal, cellulitis Lt leg Clinical Findings: WBC 11.1-12.2, Lactic acid 2.99, T 37.0, P 107, R 18 Treatment: IV Piperacillin, IV Vancomycin Question: Is sepsis a clinically valid diagnosis? Sepsis was documented in the H&P and Dr. Navarro PN's with no further doc umentation in the medical record. Please document a response in Progress Note or Discharge Summary. 1. Yes, clinically valid, condition resolved. 2. No, condition ruled out. 3. Other, with explanation of clinical findings. 4. Undetermined, no explanation for clinical findings. PHYSICIAN RESPONSE Diagnosis clinically valid: Yes, Conditon resolved In responding to this query, please exercise your independent professional judgment. The purpose of this communication is to more accurately reflect the complexity of your patients condition. The fact that a question is asked does not imply that any particular answer is desired or expected. Thank you for your timely response to this clarification. Requestors name: Antoine THIS PHYSICIAN QUERY FORM IS A PERMANENT PART OF THE MEDICAL RECORD ANTOINE HOOVER Aug 22, 2022 11:09 KAPIL POWER DO Aug 22, 2022 12:36
== END 2022-08-21 13:10 | DRG 854 ==
LOC: EDUNIT# 10:39 → ER 10:40 → 4TH 13:07
PROVIDERS: ADMIT Internal Medicine; ATTEND Internal Medicine
PROC: 0Y6N0ZF Detachment at Left Foot, Partial 5th Ray, Open Approach (ICD-10-PCS; 2022-08-15)
PROC: 0QBP0ZZ Excision of Left Metatarsal, Open Approach (ICD-10-PCS; 2022-08-15)
PROC: 0QBR0ZZ Excision of Left Toe Phalanx, Open Approach (ICD-10-PCS; 2022-08-15)
PROC: 0Y6N0ZD Detachment at Left Foot, Partial 4th Ray, Open Approach (ICD-10-PCS; principal; 2022-08-15 15:13)
DX: A41.9 Sepsis, unspecified organism (principal); F15.13 Other stimulant abuse with withdrawal; L97.424 Non-pressure chronic ulcer of left heel and midfoot with necrosis of bone; L03.116 Cellulitis of left lower limb; M86.8X7 Other osteomyelitis, ankle and foot; E11.621 Type 2 diabetes mellitus with foot ulcer; E11.69 Type 2 diabetes mellitus with other specified complication; E11.65 Type 2 diabetes mellitus with hyperglycemia; E11.40 Type 2 diabetes mellitus with diabetic neuropathy, unspecified; J44.9 Chronic obstructive pulmonary disease, unspecified; I87.2 Venous insufficiency (chronic) (peripheral); K21.9 Gastro-esophageal reflux disease without esophagitis; M19.90 Unspecified osteoarthritis, unspecified site; F41.9 Anxiety disorder, unspecified; F31.9 Bipolar disorder, unspecified; F25.9 Schizoaffective disorder, unspecified; Z20.822 Contact with and (suspected) exposure to COVID-19; F90.9 Attention-deficit hyperactivity disorder, unspecified type; K59.00 Constipation, unspecified; I25.10 Atherosclerotic heart disease of native coronary artery without angina pectoris; Z91.199 Patient's noncompliance with other medical treatment and regimen due to unspecified reason; Z86.718 Personal history of other venous thrombosis and embolism; Z88.1 Allergy status to other antibiotic agents; Z88.2 Allergy status to sulfonamides
CPT/HCPCS: 36415; 51702; 71045; 73590; 73620; 80053; 80202; 80306; 80320; 81000; 82947; 83036; 83605; 85025; 85379; 85610; 85730; 86141; 87040; 87081; 87088; 87636; 93970; 94760; 96361; 96365; 96367; 96368; 96372

== ENCOUNTER → 2022-08-29 | Outpatient (CLI) | payer MEDICARE, MEDICAID ==
[~2022-08-29] MED LIST changes: +ACET325T49 PO; +AMOX1TAB12 PO; +ENOX40DI13 SQ; +INSU100V16 SQ; +INSU100V5 SQ; +LACT20SO2 PO; +LORA-404 PO; +NICO1PAT34 TD; +OXC5T PO; +SENN-271 PO
== END ==
LOC: WOUNDCARE 09:05
PROVIDERS: ATTEND Family Medicine
DX: T81.31XA Disruption of external operation (surgical) wound, not elsewhere classified, initial encounter (principal); M86.172 Other acute osteomyelitis, left ankle and foot; E11.621 Type 2 diabetes mellitus with foot ulcer; E11.65 Type 2 diabetes mellitus with hyperglycemia; E11.40 Type 2 diabetes mellitus with diabetic neuropathy, unspecified; E44.0 Moderate protein-calorie malnutrition; M65.072 Abscess of tendon sheath, left ankle and foot; T43.655A Adverse effect of methamphetamines, initial encounter; T65.292A Toxic effect of other tobacco and nicotine, intentional self-harm, initial encounter; Z91.198 Patient's noncompliance with other medical treatment and regimen for other reason; E11.52 Type 2 diabetes mellitus with diabetic peripheral angiopathy with gangrene
CPT/HCPCS: 11042; 11045; 87070; 87205

== ENCOUNTER → 2022-09-06 | Outpatient (CLI) | payer MEDICARE, MEDICAID | LOC: WOUNDCARE 10:27 | PROVIDERS: ATTEND Family Medicine | DX: T81.31XA Disruption of external operation (surgical) wound, not elsewhere classified, initial encounter (principal); M86.172 Other acute osteomyelitis, left ankle and foot; E11.621 Type 2 diabetes mellitus with foot ulcer; E11.65 Type 2 diabetes mellitus with hyperglycemia; E11.40 Type 2 diabetes mellitus with diabetic neuropathy, unspecified; E44.0 Moderate protein-calorie malnutrition; M65.072 Abscess of tendon sheath, left ankle and foot; T43.655A Adverse effect of methamphetamines, initial encounter; T65.292A Toxic effect of other tobacco and nicotine, intentional self-harm, initial encounter; Z91.198 Patient's noncompliance with other medical treatment and regimen for other reason | CPT/HCPCS: 11042; 11045 ==

== ENCOUNTER → 2022-09-12 | Outpatient (CLI) | payer MEDICARE, MEDICAID | LOC: WOUNDCARE 08:26 | PROVIDERS: ATTEND Family Medicine | DX: T81.31XA Disruption of external operation (surgical) wound, not elsewhere classified, initial encounter (principal); M86.172 Other acute osteomyelitis, left ankle and foot; E11.621 Type 2 diabetes mellitus with foot ulcer; E11.65 Type 2 diabetes mellitus with hyperglycemia; E11.40 Type 2 diabetes mellitus with diabetic neuropathy, unspecified; E44.0 Moderate protein-calorie malnutrition; M65.072 Abscess of tendon sheath, left ankle and foot; T43.655A Adverse effect of methamphetamines, initial encounter; L97.509 Non-pressure chronic ulcer of other part of unspecified foot with unspecified severity; E11.52 Type 2 diabetes mellitus with diabetic peripheral angiopathy with gangrene; I96 Gangrene, not elsewhere classified | CPT/HCPCS: 11042; 11045 ==

== ENCOUNTER → 2022-09-19 | Outpatient (CLI) | payer MEDICARE, MEDICAID ==
--- NOTE | 2022-09-19 17:14 | Diagnostic Imaging Report ---
INDICATION: Diabetes. Left foot ulcer. COMPARISON: None. TECHNIQUE: Routine grayscale and color-flow duplex evaluation of the left lower extremity, the R2 system was performed. FINDINGS: Normal triphasic flow is identified within the left common femoral artery extending through the superficial and popliteal arteries. Grayscale and color flow images show no focal hemodynamic significant stenosis based on NASCET criteria. There is triphasic waveform within the proximal and mid posterior tibial artery, but becomes monophasic distally. Monophasic flow is also noted within the anterior tibial and dorsalis pedis arteries. IMPRESSION: 1. Probable small vessel disease of the left calf, but no evidence of focal significant stenosis. Dictated by: Dictated on workstation # [id number]
== END ==
LOC: RAD 13:45
PROVIDERS: ATTEND Family Medicine
DX: T81.31XA Disruption of external operation (surgical) wound, not elsewhere classified, initial encounter (principal); M86.172 Other acute osteomyelitis, left ankle and foot; E11.621 Type 2 diabetes mellitus with foot ulcer; E11.65 Type 2 diabetes mellitus with hyperglycemia; E11.40 Type 2 diabetes mellitus with diabetic neuropathy, unspecified; E44.0 Moderate protein-calorie malnutrition; M65.072 Abscess of tendon sheath, left ankle and foot; T43.655A Adverse effect of methamphetamines, initial encounter; T65.292A Toxic effect of other tobacco and nicotine, intentional self-harm, initial encounter; Z91.198 Patient's noncompliance with other medical treatment and regimen for other reason; L97.529 Non-pressure chronic ulcer of other part of left foot with unspecified severity
CPT/HCPCS: 93926

== ENCOUNTER → 2022-09-21 | Outpatient (CLI) | payer MEDICARE, MEDICAID | LOC: WOUNDCARE 08:24 | PROVIDERS: ATTEND Family Medicine | DX: T81.31XA Disruption of external operation (surgical) wound, not elsewhere classified, initial encounter (principal); M86.172 Other acute osteomyelitis, left ankle and foot; E11.621 Type 2 diabetes mellitus with foot ulcer; E11.65 Type 2 diabetes mellitus with hyperglycemia; E11.40 Type 2 diabetes mellitus with diabetic neuropathy, unspecified; E44.0 Moderate protein-calorie malnutrition; M65.072 Abscess of tendon sheath, left ankle and foot; T43.655A Adverse effect of methamphetamines, initial encounter; E11.52 Type 2 diabetes mellitus with diabetic peripheral angiopathy with gangrene; I96 Gangrene, not elsewhere classified | CPT/HCPCS: 11042; 11045 ==

== ENCOUNTER → 2022-10-08 | Outpatient (CLI) | payer MEDICARE, MEDICAID | LOC: WOUNDCARE 08:40 | PROVIDERS: ATTEND Family Medicine | DX: T81.31XA Disruption of external operation (surgical) wound, not elsewhere classified, initial encounter (principal); M86.172 Other acute osteomyelitis, left ankle and foot; E11.621 Type 2 diabetes mellitus with foot ulcer; E11.65 Type 2 diabetes mellitus with hyperglycemia; E11.40 Type 2 diabetes mellitus with diabetic neuropathy, unspecified; E44.0 Moderate protein-calorie malnutrition; M65.072 Abscess of tendon sheath, left ankle and foot; T43.625A Adverse effect of amphetamines, initial encounter; T65.292A Toxic effect of other tobacco and nicotine, intentional self-harm, initial encounter; I70.245 Atherosclerosis of native arteries of left leg with ulceration of other part of foot; E11.52 Type 2 diabetes mellitus with diabetic peripheral angiopathy with gangrene; I96 Gangrene, not elsewhere classified; L97.509 Non-pressure chronic ulcer of other part of unspecified foot with unspecified severity | CPT/HCPCS: 11042; 11045; 99211 ==

== ENCOUNTER → 2022-10-16 | Outpatient (CLI) | payer MEDICARE, MEDICAID | LOC: WOUNDCARE 09:23 | PROVIDERS: ATTEND Family Medicine | DX: T81.31XA Disruption of external operation (surgical) wound, not elsewhere classified, initial encounter (principal); M86.172 Other acute osteomyelitis, left ankle and foot; E11.621 Type 2 diabetes mellitus with foot ulcer; E11.65 Type 2 diabetes mellitus with hyperglycemia; E11.40 Type 2 diabetes mellitus with diabetic neuropathy, unspecified; E44.0 Moderate protein-calorie malnutrition; M65.072 Abscess of tendon sheath, left ankle and foot; T43.625A Adverse effect of amphetamines, initial encounter; T65.222A Toxic effect of tobacco cigarettes, intentional self-harm, initial encounter; I70.245 Atherosclerosis of native arteries of left leg with ulceration of other part of foot; E11.52 Type 2 diabetes mellitus with diabetic peripheral angiopathy with gangrene; I96 Gangrene, not elsewhere classified | CPT/HCPCS: 11042; 11045; 87070; 87205 ==

== ENCOUNTER 2022-10-21 15:28 | Emergency (ER) | payer MEDICARE, MEDICAID ==
[~2022-10-21] VITALS: Ht 167 cm; Wt 81.6 kg
[2022-10-21] MEDS ORDERED: FUROSEMIDE INJECTION 40 MG/4 ML VIAL IV STA (15:38)
--- NOTE | 2022-10-21 15:45 | ED General ---
General Chief Complaint: Lower Extremity Stated Complaint: FOOT PAIN Nursing Triage Note: PT TO [facility] 8 BY [facility] WITH CC OF LT FOOT PAIN/WOUND, 5 MG OXY AND 5 MG ATIVAN GIVEN ABOUT45 MIN [facility]YZ[facility] Source of Information: Patient Exam Limitations: No Limitations History of Present Illness Date Seen by Provider: Oct 21, 2022 Time Seen by Provider: 15:32 Initial Comments Here with report of left foot pain and bilateral leg swelling. [facility] and was refusing dressing change due to foot pain and she refused blood sugar check as well. She was given on Ativan and oxycodone and that did not help it to her satisfaction she requested transport to the emergency department for the jail report. This was verified by report from EMS. EMS reports normal vital signs in route. Patient admits to refusing evaluation there and was waiting for another nurse but is amiable to our evaluation. Her main complaint is that her legs are swelling and they are tight. She was recently started on Lasix 40 mg. Follows with [facility]. She is a resident of [facility]. Denies fever or chills. Denies breathing problems or cough. Patient reports she is getting wound dressings done daily now instead of twice a day and that the wound is healing well to the left foot where she had amputation of the fourth and fifth toes. Timing/Duration: 1 Hour Severity: Mild Associated Systoms: No Fever/Chills, No Nausea/Vomiting, No Shortness of Air, No Weakness Allergies and Home Medications Allergies Coded Allergies: levofloxacin (Verified Allergy, Unknown, 06/21/14) sulfamethoxazole (Unverified Allergy, Unknown, 06/21/14) trimethoprim (Unverified Allergy, Unknown, 06/21/14) Patient Home Medication List Home Medication List Reviewed: Yes Acetaminophen (Acetaminophen) 325 Mg Tablet, 650 MG PO Q4H PRN for TEMPERATURE Prescribed by: KAPIL NEWSOME on 08/21/22604 Amoxicillin/Potassium Clav (Amox Tr-K Clv 875-125 mg Tab) 875 Mg-125 Mg Tablet, 875 MG PO BID Prescribed by: KAPIL NEWSOME on 08/21/22604 Enoxaparin Sodium (Lovenox) 40 Mg/0.4 Ml Syringe, 40 MG SQ DAILY Prescribed by: KAPIL NEWSOME on 08/21/22604 Insulin Aspart (Novolog) 100 Unit/Ml Susp, 5 UNIT SQ AC Prescribed by: KAPIL NEWSOME on 08/21/22604 Insulin Determir (Levemir) 100 Unit/Ml Soln, 18 UNIT SQ BID Prescribed by: KAPIL NEWSOME on 08/21/22604 Lactulose (Lactulose) 20 Gram/30 Ml Solution, 10 GM PO BID Prescribed by: KAPIL NEWSOME on 08/21/22604 Lorazepam (Ativan) 0.5 Mg Tablet, 0.5 MG PO TID PRN for ANXIETY Prescribed by: KAPIL NEWSOME on 08/21/22604 Nicotine (Nicoderm Cq) 21 Mg/24 Hour Patch.td24, 21 MG TD DAILY@0900 Prescribed by: KAPIL NEWSOME on 08/21/22604 Oxycodone Hcl (Oxyir Tablet) 5 Mg Tab, 5 MG PO Q4HR PRN for PAIN-SEE DOSE INSTRUCTIONS Prescribed by: KAPIL NEWSOME on 08/21/22604 Sennosides/Docusate Sodium (Stool Softener-Laxative Tablet) 8.6 Mg-50 Mg Tablet, 1 EA PO BID Prescribed by: KAPIL NEWSOME on 08/21/22604 Review of Systems Review of Systems Constitutional: No fever EENTM: no symptoms reported Respiratory: No cough, No short of breath Cardiovascular: No chest pain; edema Gastrointestinal: No nausea, No vomiting Musculoskeletal: joint pain, muscle pain Skin: No change in color; lesions Past Iggcrax-Jdajpa-Yauree Hx Patient Social History Tobacco Use?: Yes Tobacco type used: Cigarettes Smoking Status: Current Everyday Smoker Substance use?: No Alcohol Use?: No Immunizations Up To Date Tetanus Booster (TDap): Unknown Seasonal Allergies Seasonal Allergies: No Past Medical History Surgery/Hospitalization HX: Partial Hysterectomy/Spine Surgery/Cholecystectomy Surgeries: Yes (STENT IN R URETER, BACK SURGERY, SUSANA FILTER) Gallbladder, Hysterectomy, Orthopedic, Renal, Tubal Ligation Respiratory: Yes (NO CPAP) Asthma, Sleep Apnea, COPD Currently Using CPAP: No Currently Using BIPAP: No Cardiac: Yes (DVT LEFT LEG; CHRONIC VENOUS INSUFFICIENCY) Chronic Edema/Swelling, Coronary Artery Disease, Deep Vein Thrombosis Neurological: Yes Neuropathy 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 Sexually Transmitted Disease: No HIV/AIDS: No Genitourinary: Yes Kidney Stones Gastrointestinal: Yes Gastroesophageal Reflux Musculoskeletal: Yes (CHRONIC LEG PAIN--L>R, osteomyelitis left foot) Arthritis, Chronic Back Pain Endocrine: Yes Diabetes, Insulin dep HEENT: No Loss of Vision: Denies Hearing Impairment: Denies Cancer: No Psychosocial: Yes Anxiety, Suicide Attempts, Bipolar, Depression Integumentary: Yes (VENOUS STASIS CHANGES TO LEGS-LEFT > RIGHT) Blood Disorders: Yes (HX OF BLOOD CLOTS) Adverse Reaction/Blood Tranf: No Family Medical History Reviewed Nursing Family Hx Diabetes mellitus 19 FATHER EMPHYSEMA 19 FATHER EPIEPSY G8 SISTER Hypertension 19 MOTHER STROKE 19 MOTHER No Family History of: Asthma No Pertinent Family Hx, Diabetes, Hypertension Physical Exam Vital Signs Vital Signs - First Documented 10/21/22 15:31 Temp 36.4 Pulse 98 Resp 18 B/P (MAP) 105/81 (89) Pulse Ox 98 O2 Delivery Room Air Capillary Refill : Less Than 3 Seconds Height, Weight, BMI Height: 5'7.00" Weight: 190lbs. 3.2oz. [id number]; 29.00 BMI Method:Stated General Appearance: No Apparent Distress, Chronically ill HEENT: PERRL/EOMI, Pharynx Normal Neck: Non Tender, Supple Respiratory: Lungs Clear, Normal Breath Sounds Cardiovascular: No Murmur, Tachycardia Extremity: Normal Range of Motion, Pedal Edema (6 edema to knees bilateral) Neurologic/Psychiatric: Alert, Oriented x3 Skin: Warm/Dry, Other (Wound dressing taken down to left foot and wound dressing removed. Wound appears to be healing well without significant foul- smelling drainage or red streaks up the foot.) Progress/Results/Core Measures Suspected Sepsis SIRS Temperature: Pulse: 98 Respiratory Rate: 18 Laboratory Tests 10/21/22 15:50: White Blood Count 10.8 Blood Pressure 105 /81 Mean: 89 Laboratory Tests 10/21/22 15:50: Creatinine 0.88, Platelet Count 190, Total Bilirubin 0.5 Results/Orders Lab Results Laboratory Tests Test 10/21/22 15:50 Range/Units White Blood Count 10.8 4.3-11.0 10^3/uL Red Blood Count 4.84 3.80-5.11 10^6/uL Hemoglobin 14.1 11.5-16.0 g/dL Hematocrit 43 35-52 % Mean Corpuscular Volume 89 80-99 fL Mean Corpuscular Hemoglobin 29 25-34 pg Mean Corpuscular Hemoglobin Concent 33 32-36 g/dL Red Cell Distribution Width 14.2 10.0-14.5 % Platelet Count 190 130-400 10^3/uL Mean Platelet Volume 9.9 9.0-12.2 fL Immature Granulocyte % (Auto) 0 % Neutrophils (%) (Auto) 74 42-75 % Lymphocytes (%) (Auto) 17 12-44 % Monocytes (%) (Auto) 7 0-12 % Eosinophils (%) (Auto) 2 0-10 % Basophils (%) (Auto) 0 0-10 % Neutrophils # (Auto) 8.0 H 1.8-7.8 10^3/uL Lymphocytes # (Auto) 1.9 1.0-4.0 10^3/uL Monocytes # (Auto) 0.7 0.0-1.0 10^3/uL Eosinophils # (Auto) 0.2 0.0-0.3 10^3/uL Basophils # (Auto) 0.0 0.0-0.1 10^3/uL Immature Granulocyte # (Auto) 0.0 0.0-0.1 10^3/uL Sodium Level 135 135-145 MMOL/L Potassium Level 4.0 3.6-5.0 MMOL/L Chloride Level 98 98-107 MMOL/L Carbon Dioxide Level 23 21-32 MMOL/L Anion Gap 14 5-14 MMOL/L Blood Urea Nitrogen 22 H 7-18 MG/DL Creatinine 0.88 0.60-1.30 MG/DL Estimat Glomerular Filtration Rate 76 BUN/Creatinine Ratio 25 Glucose Level 224 H 70-105 MG/DL Calcium Level 9.8 8.5-10.1 MG/DL Corrected Calcium 9.5 8.5-10.1 MG/DL Total Bilirubin 0.5 0.1-1.0 MG/DL Aspartate Amino Transf (AST/SGOT) 17 5-34 U/L Alanine Aminotransferase (ALT/SGPT) 15 0-55 U/L Alkaline Phosphatase 112 40-136 U/L B-Type Natriuretic Peptide 29.0 <100.0 PG/ML Total Protein 9.9 H 6.4-8.2 GM/DL Albumin 4.4 3.2-4.5 GM/DL My Orders Orders - KYREE PLUNKETT MD Ed Iv/Invasive Line Start (10/21/22 15:38) Bnp [place] (10/21/22 15:38) Cbc With Automated Diff (10/21/22 15:38) Comprehensive Metabolic Panel (10/21/22 15:38) Furosemide Injection (Furosemide Injec (10/21/22 15:38) Vital Signs/I&O 10/21/22 15:31 Temp 36.4 Pulse 98 Resp 18 B/P (MAP) 105/81 (89) Pulse Ox 98 O2 Delivery Room Air Capillary Refill : Less Than 3 Seconds Blood Pressure Mean: 89 Progress Note : Progress Note Seen and evaluated. IV, labs including CBC, CMP and BNP ordered. Lasix 40 mg IV ordered. Monitor patient. Differential diagnosis includes edema, electrolyte abnormality, renal dysfunction 648: Patient has been up to the bathroom. The CBC reviewed and nonconcerning. CMP grossly normal except glucose at 224 with negative BNP. Potassium and creatinine are normal. We will increase Lasix at the jail to 40 mg p.o. twice daily for 3 days and then return to normal dosing. She will need to follow-up with her primary care doctor after. Discharged home with return precautions. Patient verbalized understanding of instructions and agreement with plan. Departure Impression Primary Impression: Lower extremity edema Additional Impression: Dressing change Disposition: 01 HOME, SELF-CARE Condition: Stable Departure-Patient Inst. Decision time for Depature: 16:50 Referrals: [facility] (PCP/Family) Primary Care Physician Patient Instructions: Dependent Edema (DC), Wound Care (DC) Add. Discharge Instructions: All discharge instructions reviewed with patient and/or family. Voiced understanding. The dressing was changed and your glucose is 224. You will increase your Lasix to 40 mg by mouth twice daily for the next 3 days starting tomorrow and then return to normal dosing. Follow-up with your doctor this week for recheck and further evaluation. Return for worse pain, fever, vomiting, weakness, breathing problems or other concerns as needed. Continue normal dressing changes as previously scheduled per jail protocol. KYREE PLUNKETT MD Oct 21, 2022 15:45
[2022-10-21 16:03] LABS: BASOPHILS % (AUTO) 0 % (0-10); EOSINOPHILS # (AUTO) 0.2 10^3/uL (0.0-0.3); EOSINOPHILS % (AUTO) 2 % (0-10); HEMATOCRIT 43 % (35-52); HEMOGLOBIN 14.1 g/dL (11.5-16.0); LYMPHOCYTES # (AUTO) 1.9 10^3/uL (1.0-4.0); LYMPHOCYTES % (AUTO) 17 % (12-44); MEAN CORPUSCULAR HEMOGLOBIN 29 pg (25-34); MEAN CORPUSCULAR HGB CONC 33 g/dL (32-36); MEAN CORPUSCULAR VOLUME 89 fL (80-99); MEAN PLATELET VOLUME 9.9 fL (9.0-12.2); MONOCYTES # (AUTO) 0.7 10^3/uL (0.0-1.0); MONOCYTES % (AUTO) 7 % (0-12); NEUTROPHILS % (AUTO) 74 % (42-75); PLATELET COUNT 190 10^3/uL (130-400); WHITE BLOOD COUNT 10.8 10^3/uL (4.3-11.0)
[2022-10-21 16:06] LABS: ALBUMIN 4.4 GM/DL (3.2-4.5)
[2022-10-21 16:07] LABS: CALCIUM 9.8 MG/DL (8.5-10.1)
[2022-10-21 16:09] LABS: TOTAL PROTEIN 9.9 GM/DL (6.4-8.2)
[2022-10-21 16:10] LABS: BILIRUBIN,TOTAL 0.5 MG/DL (0.1-1.0)
[2022-10-21 16:12] LABS: CREATININE SERUM 0.88 MG/DL (0.60-1.30)
[2022-10-21 17:05] VITALS: BP 116/81
== END 2022-10-21 17:05 | disposition home or self-care (01) ==
LOC: EDUNIT# 15:28 → ER 15:29
DX: R60.0 Localized edema (principal); Z48.01 Encounter for change or removal of surgical wound dressing; F17.210 Nicotine dependence, cigarettes, uncomplicated
CPT/HCPCS: 36415; 80053; 83880; 85025

== ENCOUNTER 2022-10-25 10:04 | Emergency (ER) | payer MEDICARE, MEDICAID ==
[~2022-10-25] VITALS: Ht 170 cm; Wt 85.8 kg
[~2022-10-25 10:04] MED LIST changes: -APIX5TAB PO
--- NOTE | 2022-10-25 10:47 | ED Lower Extremity ---
General Chief Complaint: Lower Extremity Stated Complaint: LEG SWELLING | LT LEG PAIN Source: patient Exam Limitations: no limitations History of Present Illness Date Seen by Provider: Oct 25, 2022 Time Seen by Provider: 10:46 Initial Comments Janet is a 57-year-old female sent over from Dr. Martinez and wound care for evaluation of worsening left leg swelling, redness, drainage from her recent amputation site in the left foot. Janet is complaining of pain all the way up the leg. She denies feeling short of breath she denies chest pain. She does not believe she has had a fever. She denies nausea vomiting or diarrhea. She states that her right leg is also a bit swollen. She is a bit belligerent and has to be urged to answer questions. She seems upset that she is in the emergency department. Onset: other (Unknown) Severity: severe Pain/Injury Location: left leg Modifying Factors: Worse With Jarring, Worse With Movement Allergies and Home Medications Allergies Coded Allergies: levofloxacin (Verified Allergy, Unknown, 10/25/22) sulfamethoxazole (Unverified Allergy, Unknown, 10/25/22) trimethoprim (Unverified Allergy, Unknown, 10/25/22) Patient Home Medication List Home Medication List Reviewed: Yes Acetaminophen (Acetaminophen) 325 Mg Tablet, 650 MG PO Q4H PRN for TEMPERATURE Prescribed by: KAPIL NEWSOME on 08/21/22604 Amoxicillin/Potassium Clav (Amox Tr-K Clv 875-125 mg Tab) 875 Mg-125 Mg Tablet, 875 MG PO BID Prescribed by: KAPIL NEWSOME on 08/21/22604 Enoxaparin Sodium (Lovenox) 40 Mg/0.4 Ml Syringe, 40 MG SQ DAILY Prescribed by: KAPIL NEWSOME on 08/21/22604 Insulin Aspart (Novolog) 100 Unit/Ml Susp, 5 UNIT SQ AC Prescribed by: KAPIL NEWSOME on 08/21/22604 Insulin Determir (Levemir) 100 Unit/Ml Soln, 18 UNIT SQ BID Prescribed by: KAPIL NEWSOME on 08/21/22604 Lactulose (Lactulose) 20 Gram/30 Ml Solution, 10 GM PO BID Prescribed by: KAPIL NEWSOME on 08/21/22604 Lorazepam (Ativan) 0.5 Mg Tablet, 0.5 MG PO TID PRN for ANXIETY Prescribed by: KAPIL NEWSOME on 08/21/22604 Nicotine (Nicoderm Cq) 21 Mg/24 Hour Patch.td24, 21 MG TD DAILY@0900 Prescribed by: KAPIL NEWSOME on 08/21/22604 Oxycodone Hcl (Oxyir Tablet) 5 Mg Tab, 5 MG PO Q4HR PRN for PAIN-SEE DOSE INSTRUCTIONS Prescribed by: KAPIL NEWSOME on 08/21/22604 Sennosides/Docusate Sodium (Stool Softener-Laxative Tablet) 8.6 Mg-50 Mg Tablet, 1 EA PO BID Prescribed by: KAPIL NEWSOME on 08/21/22604 Review of Systems Constitutional: see HPI EENTM: no symptoms reported Respiratory: no symptoms reported Cardiovascular: no symptoms reported Gastrointestinal: no symptoms reported Genitourinary: no symptoms reported Musculoskeletal: other (Left leg pain and swelling) Skin: no symptoms reported Past Jvwnmxj-Lbufkb-Qwjakw Hx Immunizations Up To Date Tetanus Booster (TDap): Unknown Seasonal Allergies Seasonal Allergies: No Past Medical History Surgery/Hospitalization HX: Partial Hysterectomy/Spine Surgery/Cholecystectomy Surgeries: Yes (STENT IN R URETER, BACK SURGERY, SUSANA FILTER) Gallbladder, Hysterectomy, Orthopedic, Renal, Tubal Ligation Respiratory: Yes (NO CPAP) Asthma, Sleep Apnea, COPD Currently Using CPAP: No Currently Using BIPAP: No Cardiac: Yes (DVT LEFT LEG; CHRONIC VENOUS INSUFFICIENCY) Chronic Edema/Swelling, Coronary Artery Disease, Deep Vein Thrombosis Neurological: Yes Neuropathy 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 Disorders: No [employer]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 Sexually Transmitted Disease: No HIV/AIDS: No Genitourinary: Yes Kidney Stones Gastrointestinal: Yes Gastroesophageal Reflux Musculoskeletal: Yes (CHRONIC LEG PAIN--L>R, osteomyelitis left foot) Arthritis, Chronic Back Pain Endocrine: Yes Diabetes, Insulin dep HEENT: No Loss of Vision: Denies Hearing Impairment: Denies Cancer: No Psychosocial: Yes Anxiety, Suicide Attempts, Bipolar, Depression Integumentary: Yes (VENOUS STASIS CHANGES TO LEGS-LEFT > RIGHT) Blood Disorders: Yes (HX OF BLOOD CLOTS) Adverse Reaction/Blood Tranf: No Family Medical History Diabetes mellitus 19 FATHER EMPHYSEMA 19 FATHER EPIEPSY G8 SISTER Hypertension 19 MOTHER STROKE 19 MOTHER No Family History of: Asthma No Pertinent Family Hx, Diabetes, Hypertension Physical Exam Vital Signs Vital Signs - First Documented 10/25/22 10:39 Temp 36.9 Pulse 104 Resp 16 B/P (MAP) 104/71 (82) Pulse Ox 98 Capillary Refill : Height, Weight, BMI Height: 5'7.00" Weight: 190lbs. 3.2oz. 86.957481hx; 29.00 BMI Method:Stated General Appearance: WD/WN, no apparent distress, obese HEENT: PERRL/EOMI, other (Poor dentition moist oral mucosa) Neck: normal inspection Cardiovascular: regular rate, rhythm, tachycardia (105), other (2+ radial pulses bilaterally, 1+ dorsalis pedis pulses bilaterally) Respiratory: lungs clear, normal breath sounds, no respiratory distress, no accessory muscle use Gastrointestinal: non tender, soft, other (Obese) Hips: bilateral hip normal inspection Legs: left leg pain, left leg soft tissue tenderness, left leg swelling; right leg other (3+ pitting edema to the entirety of the left lower extremity. Patient is very apprehensive with exam. Has significant pain primarily to the upper thigh on the left leg no open wounds are appreciated. There is moderate erythema throughout; right leg has 1-2+ pitting edema and is a little bit more erythematous over the anterior lower extremity) Knees: left knee swelling Ankles: left ankle pain, left ankle soft tissue tenderness, left ankle swelling Feet: left foot pain, left foot soft tissue tenderness, left foot swelling Neurologic/Psychiatric: alert, oriented x 3, other (Belligerent, hostile) Skin: normal color, warm/dry, other (See extremity exam) Progress/Results/Core Measures Results/Orders My Orders Orders - REYES CRISOSTOMO MD Cbc With Automated Diff (10/25/22 10:55) Comprehensive Metabolic Panel (10/25/22 10:55) Blood Culture (10/25/22 10:55) Sputum Culture (10/25/22 10:55) Urinalysis (10/25/22 10:55) Urine Culture (10/25/22 10:55) Protime With Inr (10/25/22 10:55) Partial Thromboplastin Time (10/25/22 10:55) Chest 1 View, Ap/Pa Only (10/25/22 10:55) Ed Iv/Invasive Line Start (10/25/22 10:55) Ed Iv/Invasive Line Start (10/25/22 10:55) Vital Signs Adult Sepsis Patie Q15M (10/25/22 10:55) O2 (10/25/22 10:55) Remove Rings In Anticipation O (10/25/22 10:55) Lactic Acid Analyzer (10/25/22 10:55) Us Venous Lower Ext Lt (10/25/22 10:55) Wound Culture (10/25/22 10:55) Erythrocyte Sedimentation Rate (10/25/22 10:55) Foot, Left, 2 View (10/25/22 10:55) Oxycodone Immediate Rel Tablet (Oxycodon (10/25/22 11:30) Medications Given in ED Current Medications Medications Dose Ordered Sig/Phuc Route Start Time Stop Time Status Last Admin Dose Admin Oxycodone HCl 5 mg ONCE ONCE PO 10/25/22 11:30 10/25/22 11:31 DC 10/25/22 11:41 5 MG Vital Signs/I&O 10/25/22 10:39 Temp 36.9 Pulse 104 Resp 16 B/P (MAP) 104/71 (82) Pulse Ox 98 Progress Progress Note : Time: 13:04 Progress Note Patient seen and evaluated by me. Evaluation today includes physical exam, "septic" work-up. This includes CBC, Chem-12, coags, urinalysis, chest x-ray, blood cultures, D-dimer. Additionally she had an x-ray of the left foot as well as DVT ultrasound of the left lower extremity. Pertinent physical exam findings well-developed well-nourished obese female in no acute distress with stable vital signs. She seems very simple in mentation yet hostile and belligerent. Heart is regular, tachycardic. Lungs are clear abdomen benign. Significant lower extremity edema, erythema and tenderness. She has surgical wound to the left lateral foot status post amputation of her fourth and fifth toes. The wound bed is grayish-green with purulence. Nontender. Differential diagnosis based on history and physical exam, DVT left lower extremity, cellulitis/sepsis/dehydration Patient was very confrontational regarding laboratory work-up and evaluation. She was initially compliant with having an IV placed in wound care clinic. The IV would not draw here in the ED so blood was not obtainable. She pulled out her own IV and initially refused her chest x-ray. Throughout all of this ultrasound was able to come in and perform the DVT study of her left leg. Findings significant for diffuse DVT in the entirety of the venous system of the left leg. I went back in and had a long discussion with Janet regarding work-up of recurrent infection in the leg especially where the amputation site is. I told her about the blood clot in her leg as the cause of her pain. I recommended that she have her blood work done and possibly be readmitted for more IV antibiotics she stated when I left the room that she would do this howeve every time her nurse went in to restart her IV and draw blood she refused. Finally I went back in and spoke with Janet about continuing to refuse the care she came to the emergency room for. I communicated to her that this is a life-threatening condition without treatment. She will develop an infection as well without proper treatment that could be life-threatening. I told her that the risks of leaving AGAINST MEDICAL ADVICE or that she could even in transport back to the senior living. She refused to repeat that statement back to me so I asked her do understand that you could from this condition without treatment and she said yes. She is oriented to herself, situation and date. I believe she is competent to make her own decisions, and while I do not agree with her decision and do have some questions regarding her intelligence, I cannot force her to succumb to treatment. She then told me that I could leave the room and that she wanted to call the senior living to have someone come and get her. I will type up discharge instructions for her. I will prescribe Eliquis 5 mg twice daily. Return precautions will be provided on the written paperwork. She will also be provided with an AMA form to sign as well. Diagnostic Imaging Diagonstic Imaging: Xray Plain Films/CT/US/NM/MRI: chest Comments [facility], [facility]. [place], [place] NAME: JANET WEAVER [facility] REC#: [id number] PT STATUS: REG ER : 1965 PHYSICIAN: REYES CRISOSTOMO MD ADMIT DATE: 10/25/22/ER Signed Date of Exam:10/25/22 CHEST 1 VIEW, AP/PA ONLY EXAMINATION: Chest 1 view HISTORY: Left leg pain and swelling. Edema. Congestion. COMPARISON: 08/12/2022. FINDINGS: The lung volumes are normal. No focal consolidation is seen. No large pleural effusion or pneumothorax is seen. The cardiomediastinal silhouette is normal in size and contour. There is calcified aortic atherosclerotic plaque. No acute osseous abnormality is seen. IMPRESSION: 1. No acute pleuroparenchymal process. Dictated by: Dictated on workstation # [id number] Dict: 10/25/22 1231 Trans: 10/25/22 1237 [facility] [id number] Interpreted by: BUBBA CONWAY DO Electronically signed by: BUBBA CONWAY DO 10/25/22 123 Diagonstic Imaging: Xray Comments [facility], [place] NAME: MEGJANET [facility] REC#: [id number] PT STATUS: REG ER : 1965 PHYSICIAN: REYES CRISOSTOMO MD ADMIT DATE: 10/25/22/ER Signed Date of Exam:10/25/22 FOOT, LEFT, 2 VIEW CLINICAL HISTORY: Left foot pain and swelling. COMPARISON: 08/12/2022. TECHNIQUE: 2 views of the left foot. FINDINGS: There has been interval amputation of the left 4th and 5th toes at the base of the metatarsal. No new radiographic evidence of osteomyelitis. No acute fracture. There is generalized soft tissue swelling in the left foot. IMPRESSION: 1. Interval amputation of the left 4th and 5th toes at the base of the metatarsals. 2. No new evidence of osteomyelitis. No acute fracture. 3. Generalized soft tissue edema in the left foot. Dictated by: Dictated on workstation # [id number] Dict: 10/25/22 1233 Trans: 10/25/22 1246 [facility] [id number] Interpreted by: BUBBA CONWAY DO Electronically signed by: BUBBA CONWAY DO 10/25/22 1246 Diagonstic Imaging: Ultrasound [facility] [place] [place] [facility] [id number] PT STATUS: REG ER : 1965 PHYSICIAN: REYES CRISOSTOMO MD ADMIT DATE: 10/25/22/ER Signed Date of Exam:10/25/22 US VENOUS LOWER EXT LT EXAMINATION: US Lower Extremity Venous Duplex Left. TECHNIQUE: Multiple real-time grayscale images were obtained over the left lower extremity in various projections. Additional spectral analysis and color Doppler duplex images were also obtained. HISTORY: Left lower extremity pain and swelling. COMPARISON: None available. FINDINGS: Occlusive deep vein thrombus is seen involving the left common femoral, profunda femoris, superficial femoral, popliteal, and calf vessels of the left lower extremity. These vessels demonstrate noncompressibility without color Doppler filling. IMPRESSION: 1. Occlusive deep vein thrombus throughout the left lower extremity venous system. Dictated by: Dictated on workstation # [id number] Dict: 10/25/22 1132 Trans: 10/25/22 1147 [place] [id number] Interpreted by: BUBBA CONWAY DO Electronically signed by: BUBBA CONWAY DO 10/25/22 1147 Departure Impression Primary Impression: Left leg DVT Qualified Codes: I82.402 - Acute embolism and thrombosis of unspecified deep veins of left lower extremity Additional Impressions: Infection of left foot Medical non-compliance Disposition: 07 AGAINST MEDICAL ADVICE Condition: Against Medical Advice Departure-Patient Inst. Decision time for Depature: 13:10 Referrals: [facility] (PCP/Family) Primary Care Physician Patient Instructions: Deep Vein Thrombosis (DVT) ED Add. Discharge Instructions: Continue wound dressing changes to the left foot as instructed at the senior living. You have a blood clot in your leg that could move it anytime into your lungs and cause sudden . I am starting you on a medication called Eliquis. You will need to take 1 pill twice daily to help prevent further clotting up your abdomen into your chest and into your heart and lungs. This medication can cause you to bleed easily. I am also restarting you on Augmentin, antibiotic for the presumptive infection where your toes were amputated. You should follow-up this week as soon as possible to reevaluate treatment. Return to the emergency department for any new, concerning or emergent complaints. Scripts Apixaban (Eliquis) 5 Mg Tablet 5 MG PO BID, #28 TAB Prov: REYES CRISOSTOMO MD 10/25/22 Amoxicillin/Potassium Clav (Amox Tr-K Clv 875-125 mg Tab) 875 Mg-125 Mg Tablet 1 EACH PO BID for 7 Days, #14 TAB Prov: REYES CRISOSTOMO MD 10/25/22 Copy Copies To 1: CHANDRA HINTON DO Copies To 2: CONRADO MARTINEZ MD, KATHRYN M MD Oct 25, 2022 10:47
[2022-10-25] MEDS ORDERED: oxyCODONE IMMEDIATE RELEASE 5 MG TABLET PO ONE (11:30)
--- NOTE | 2022-10-25 11:40 | Diagnostic Imaging Report ---
EXAMINATION: US Lower Extremity Venous Duplex Left. TECHNIQUE: Multiple real-time grayscale images were obtained over the left lower extremity in various projections. Additional spectral analysis and color Doppler duplex images were also obtained. HISTORY: Left lower extremity pain and swelling. COMPARISON: None available. FINDINGS: Occlusive deep vein thrombus is seen involving the left common femoral, profunda femoris, superficial femoral, popliteal, and calf vessels of the left lower extremity. These vessels demonstrate noncompressibility without color Doppler filling. IMPRESSION: 1. Occlusive deep vein thrombus throughout the left lower extremity venous system. Dictated by: Dictated on workstation # [id number]
--- NOTE | 2022-10-25 12:34 | Diagnostic Imaging Report ---
EXAMINATION: Chest 1 view HISTORY: Left leg pain and swelling. Edema. Congestion. COMPARISON: 08/12/2022. FINDINGS: The lung volumes are normal. No focal consolidation is seen. No large pleural effusion or pneumothorax is seen. The cardiomediastinal silhouette is normal in size and contour. There is calcified aortic atherosclerotic plaque. No acute osseous abnormality is seen. IMPRESSION: 1. No acute pleuroparenchymal process. Dictated by: Dictated on workstation # [id number]
--- NOTE | 2022-10-25 12:41 | Diagnostic Imaging Report ---
CLINICAL HISTORY: Left foot pain and swelling. COMPARISON: 08/12/2022. TECHNIQUE: 2 views of the left foot. FINDINGS: There has been interval amputation of the left 4th and 5th toes at the base of the metatarsal. No new radiographic evidence of osteomyelitis. No acute fracture. There is generalized soft tissue swelling in the left foot. IMPRESSION: 1. Interval amputation of the left 4th and 5th toes at the base of the metatarsals. 2. No new evidence of osteomyelitis. No acute fracture. 3. Generalized soft tissue edema in the left foot. Dictated by: Dictated on workstation # [id number]
[2022-10-25] MEDS ORDERED: APIX5TAB PO (13:14)
[2022-10-25] MEDS ORDERED: AMOX1TAB12 PO (13:14)
[2022-10-25 13:30] VITALS: BP 114/81
== END 2022-10-25 13:35 | disposition left against medical advice (07) ==
LOC: EDUNIT# 10:04 → ER 10:06
DX: I82.402 Acute embolism and thrombosis of unspecified deep veins of left lower extremity (principal); L08.9 Local infection of the skin and subcutaneous tissue, unspecified; Z91.198 Patient's noncompliance with other medical treatment and regimen for other reason; R00.0 Tachycardia, unspecified; E11.9 Type 2 diabetes mellitus without complications; Z79.4 Long term (current) use of insulin; Z88.1 Allergy status to other antibiotic agents; Z88.2 Allergy status to sulfonamides
CPT/HCPCS: 71045; 73620; 87070; 87077; 87186; 87205

== ENCOUNTER 2022-10-25 15:51 | Emergency (ER) | payer MEDICARE, MEDICAID ==
[~2022-10-25 15:51] MED LIST changes: +APIX5TAB PO
[2022-10-25 16:13] VITALS: BP 110/73
--- NOTE | 2022-10-25 16:48 | ED General ---
General Chief Complaint: Lower Extremity Stated Complaint: LEG SWOLLEN Nursing Triage Note: PT TO RM 10 BY WC WITH C/O WORSENING PAIN IN L LEG Source of Information: Patient Exam Limitations: No Limitations History of Present Illness Date Seen by Provider: Oct 25, 2022 Time Seen by Provider: 16:45 Allergies and Home Medications Allergies Coded Allergies: levofloxacin (Verified Allergy, Unknown, 10/25/22) sulfamethoxazole (Unverified Allergy, Unknown, 10/25/22) trimethoprim (Unverified Allergy, Unknown, 10/25/22) Patient Home Medication List Acetaminophen (Acetaminophen) 325 Mg Tablet, 650 MG PO Q4H PRN for TEMPERATURE Prescribed by: KAPIL NEWSOME on 08/21/22604 Amoxicillin/Potassium Clav (Amox Tr-K Clv 875-125 mg Tab) 875 Mg-125 Mg Tablet, 875 MG PO BID Prescribed by: KAPIL NEWSOME on 08/21/22604 Amoxicillin/Potassium Clav (Amox Tr-K Clv 875-125 mg Tab) 875 Mg-125 Mg Tablet, 1 EACH PO BID Prescribed by: REYES CRISOSTOMO on 10/25/22 1314 Apixaban (Eliquis) 5 Mg Tablet, 5 MG PO BID Prescribed by: REYES CRISOSTOMO on 10/25/22 1314 Enoxaparin Sodium (Lovenox) 40 Mg/0.4 Ml Syringe, 40 MG SQ DAILY Prescribed by: KAPIL NEWSOME on 08/21/22604 Insulin Aspart (Novolog) 100 Unit/Ml Susp, 5 UNIT SQ AC Prescribed by: KAPIL NEWSOME on 08/21/22604 Insulin Determir (Levemir) 100 Unit/Ml Soln, 18 UNIT SQ BID Prescribed by: KAPIL NEWSOME on 08/21/22604 Lactulose (Lactulose) 20 Gram/30 Ml Solution, 10 GM PO BID Prescribed by: KAPIL NEWSOME on 08/21/22604 Lorazepam (Ativan) 0.5 Mg Tablet, 0.5 MG PO TID PRN for ANXIETY Prescribed by: KAPIL NEWSOME on 08/21/22604 Nicotine (Nicoderm Cq) 21 Mg/24 Hour Patch.td24, 21 MG TD DAILY@0900 Prescribed by: KAPIL NEWSOME on 6/13/23 0605 Oxycodone Hcl (Oxyir Tablet) 5 Mg Tab, 5 MG PO Q4HR PRN for PAIN-SEE DOSE INSTRUCTIONS Prescribed by: KAPIL NEWSOME on 08/21/22604 Sennosides/Docusate Sodium (Stool Softener-Laxative Tablet) 8.6 Mg-50 Mg Tablet, 1 EA PO BID Prescribed by: KAPIL NEWSOME on 08/21/22604 Past Ikyvdjt-Njxfmz-Wjukiy Hx Patient Social History Tobacco Use?: No Use of E-Cig and/or Vaping dev: No Substance use?: No Alcohol Use?: No Pt feels they are or have been: No Immunizations Up To Date Tetanus Booster (TDap): Unknown Seasonal Allergies Seasonal Allergies: No Past Medical History Surgery/Hospitalization HX: Partial Hysterectomy/Spine Surgery/Cholecystectomy/AMPUTATION OF 4TH AND 5TH TOE AND PORTION OF LATERAL FOOT. 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 Sexually Transmitted Disease: No HIV/AIDS: No Genitourinary: Yes Kidney Stones Gastrointestinal: Yes Gastroesophageal Reflux Musculoskeletal: Yes (CHRONIC LEG PAIN--L>R, osteomyelitis left foot) Arthritis, Chronic Back Pain Endocrine: Yes Diabetes, Insulin dep HEENT: No Loss of Vision: Denies Hearing Impairment: Denies Cancer: No Psychosocial: Yes Anxiety, Suicide Attempts, Bipolar, Depression Integumentary: Yes (VENOUS STASIS CHANGES TO LEGS-LEFT > RIGHT) Blood Disorders: Yes (HX OF BLOOD CLOTS) Adverse Reaction/Blood Tranf: No Family Medical History Diabetes mellitus 19 FATHER EMPHYSEMA 19 FATHER EPIEPSY G8 SISTER Hypertension 19 MOTHER STROKE 19 MOTHER No Family History of: Asthma No Pertinent Family Hx, Diabetes, Hypertension Physical Exam Vital Signs Vital Signs - First Documented 10/25/22 16:13 Temp 36.4 Pulse 110 Resp 17 B/P (MAP) 110/73 (85) Pulse Ox 93 O2 Delivery Room Air Capillary Refill : Height, Weight, BMI Height: 5'7.00" Weight: 190lbs. 3.2oz. 86.227914sh; 29.00 BMI Method:Stated Progress/Results/Core Measures Suspected Sepsis SIRS Temperature: Pulse: 110 Respiratory Rate: 17 Laboratory Tests 10/25/22 16:55: White Blood Count 16.5H Blood Pressure 110 /73 Mean: 85 Laboratory Tests 10/25/22 16:55: Creatinine 0.78, INR Comment 1.2, Platelet Count 252, Total Bilirubin 0.9 Results/Orders Lab Results Laboratory Tests Test 10/25/22 16:55 Range/Units White Blood Count 16.5 H 4.3-11.0 10^3/uL Red Blood Count 4.12 3.80-5.11 10^6/uL Hemoglobin 11.8 11.5-16.0 g/dL Hematocrit 36 35-52 % Mean Corpuscular Volume 87 80-99 fL Mean Corpuscular Hemoglobin 29 25-34 pg Mean Corpuscular Hemoglobin Concent 33 32-36 g/dL Red Cell Distribution Width 14.0 10.0-14.5 % Platelet Count 252 130-400 10^3/uL Mean Platelet Volume 9.5 9.0-12.2 fL Immature Granulocyte % (Auto) 1 % Neutrophils (%) (Auto) 76 H 42-75 % Lymphocytes (%) (Auto) 14 12-44 % Monocytes (%) (Auto) 9 0-12 % Eosinophils (%) (Auto) 1 0-10 % Basophils (%) (Auto) 0 0-10 % Neutrophils # (Auto) 12.7 H 1.8-7.8 10^3/uL Lymphocytes # (Auto) 2.3 1.0-4.0 10^3/uL Monocytes # (Auto) 1.4 H 0.0-1.0 10^3/uL Eosinophils # (Auto) 0.1 0.0-0.3 10^3/uL Basophils # (Auto) 0.0 0.0-0.1 10^3/uL Immature Granulocyte # (Auto) 0.1 0.0-0.1 10^3/uL Neutrophils % (Manual) 73 % Lymphocytes % (Manual) 16 % Monocytes % (Manual) 10 % Band Neutrophils 1 % Platelet Estimate ADEQUATE Blood Morphology Comment NORMAL Prothrombin Time 15.5 H 12.2-14.7 SEC INR Comment 1.2 0.8-1.4 Activated Partial Thromboplast Time 31 24-35 SEC Sodium Level 132 L 135-145 MMOL/L Potassium Level 3.7 3.6-5.0 MMOL/L Chloride Level 95 L 98-107 MMOL/L Carbon Dioxide Level 26 21-32 MMOL/L Anion Gap 11 5-14 MMOL/L Blood Urea Nitrogen 28 H 7-18 MG/DL Creatinine 0.78 0.60-1.30 MG/DL Estimat Glomerular Filtration Rate 88 BUN/Creatinine Ratio 36 Glucose Level 86 70-105 MG/DL Calcium Level 9.0 8.5-10.1 MG/DL Corrected Calcium 9.3 8.5-10.1 MG/DL Total Bilirubin 0.9 0.1-1.0 MG/DL Aspartate Amino Transf (AST/SGOT) 20 5-34 U/L Alanine Aminotransferase (ALT/SGPT) 12 0-55 U/L Alkaline Phosphatase 118 40-136 U/L Total Protein 8.7 H 6.4-8.2 GM/DL Albumin 3.6 3.2-4.5 GM/DL My Orders Orders - REYES CRISOSTOMO MD Ed Iv/Invasive Line Start (10/25/22 16:36) Cbc With Automated Diff (10/25/22 16:36) Comprehensive Metabolic Panel (10/25/22 16:36) Ua Culture If Indicated (10/25/22 16:36) Protime With Inr (10/25/22 16:36) Partial Thromboplastin Time (10/25/22 16:36) Manual Differential (10/25/22 16:55) Vital Signs/I&O 10/25/22 16:13 Temp 36.4 Pulse 110 Resp 17 B/P (MAP) 110/73 (85) Pulse Ox 93 O2 Delivery Room Air Capillary Refill : Blood Pressure Mean: 85 Progress Note : Time: 18:09 Departure Impression Primary Impression: Left leg DVT Qualified Codes: I82.402 - Acute embolism and thrombosis of unspecified deep veins of left lower extremity Additional Impression: Medical non-compliance Disposition: 01 HOME, SELF-CARE Condition: Stable Departure-Patient Inst. Decision time for Depature: 18:10 Referrals: [facility] (PCP/Family) Primary Care Physician Patient Instructions: Deep Vein Thrombosis (DVT) ED Add. Discharge Instructions: Take the Eliquis I have prescribed TWICE A DAY. Also get the antibiotics I prescribed earlier and take them as directed. You need a follow up appointment with your doctor next week as well as ongoing care from WOUND CARE. Please have a follow up made tomorrow. Do not take Ibuprofen while on Eliquis. You can take Tyelnol extra strength 2 tablets every 6 hours as needed for pain. If you have a fever, worsening pain or shortness of breath/chest pain - please return to the Emergency Department for re-evaluation. REYES CRISOSTOMO MD Oct 25, 2022 16:48
[2022-10-25 17:01] LABS: BASOPHILS % (AUTO) 0 % (0-10); EOSINOPHILS # (AUTO) 0.1 10^3/uL (0.0-0.3); EOSINOPHILS % (AUTO) 1 % (0-10); HEMATOCRIT 36 % (35-52); HEMOGLOBIN 11.8 g/dL (11.5-16.0); LYMPHOCYTES # (AUTO) 2.3 10^3/uL (1.0-4.0); LYMPHOCYTES % (AUTO) 14 % (12-44); MEAN CORPUSCULAR HEMOGLOBIN 29 pg (25-34); MEAN CORPUSCULAR HGB CONC 33 g/dL (32-36); MEAN CORPUSCULAR VOLUME 87 fL (80-99); MEAN PLATELET VOLUME 9.5 fL (9.0-12.2); MONOCYTES # (AUTO) 1.4 10^3/uL (0.0-1.0); MONOCYTES % (AUTO) 9 % (0-12); NEUTROPHILS # (AUTO) 12.7 10^3/uL (1.8-7.8); NEUTROPHILS % (AUTO) 76 % (42-75); PLATELET COUNT 252 10^3/uL (130-400); WHITE BLOOD COUNT 16.5 10^3/uL (4.3-11.0)
[2022-10-25 17:10] LABS: ALBUMIN 3.6 GM/DL (3.2-4.5); INR 1.2 (0.8-1.4); PROTHROMBIN TIME PATIENT 15.5 SEC (12.2-14.7)
[2022-10-25 17:11] LABS: POTASSIUM 3.7 MMOL/L (3.6-5.0)
[2022-10-25 17:13] LABS: TOTAL PROTEIN 8.7 GM/DL (6.4-8.2)
[2022-10-25 17:15] LABS: BILIRUBIN,TOTAL 0.9 MG/DL (0.1-1.0)
[2022-10-25 17:16] LABS: CREATININE SERUM 0.78 MG/DL (0.60-1.30)
[2022-10-25 17:34] LABS: BAND NEUTROPHILS 1 %; LYMPHOCYTES % (MANUAL) 16 %; MONOCYTES % (MANUAL) 10 %; NEUTROPHILS % (MANUAL) 73 %; PLATELET ESTIMATE ADEQUATE; RBC MORPH NORMAL
== END 2022-10-25 19:39 | disposition home or self-care (01) ==
LOC: EDUNIT# 15:51 → ER 15:53
DX: I82.402 Acute embolism and thrombosis of unspecified deep veins of left lower extremity (principal); E11.9 Type 2 diabetes mellitus without complications; Z79.4 Long term (current) use of insulin; Z91.148 Patient's other noncompliance with medication regimen for other reason
CPT/HCPCS: 36415; 80053; 85007; 85027; 85610; 85652; 85730

== ENCOUNTER → 2022-10-25 | Outpatient (CLI) | payer MEDICARE, MEDICAID ==
[~2022-10-25] MED LIST changes: +APIX5TAB PO
== END ==
LOC: WOUNDCARE 09:10
PROVIDERS: ATTEND Family Medicine
DX: T81.31XA Disruption of external operation (surgical) wound, not elsewhere classified, initial encounter (principal); M86.172 Other acute osteomyelitis, left ankle and foot; E11.621 Type 2 diabetes mellitus with foot ulcer; E11.65 Type 2 diabetes mellitus with hyperglycemia; E11.40 Type 2 diabetes mellitus with diabetic neuropathy, unspecified; E44.0 Moderate protein-calorie malnutrition; M65.072 Abscess of tendon sheath, left ankle and foot; T43.655A Adverse effect of methamphetamines, initial encounter; T65.292A Toxic effect of other tobacco and nicotine, intentional self-harm, initial encounter; I70.245 Atherosclerosis of native arteries of left leg with ulceration of other part of foot; R60.0 Localized edema; B96.5 Pseudomonas (aeruginosa) (mallei) (pseudomallei) as the cause of diseases classified elsewhere; B95.61 Methicillin susceptible Staphylococcus aureus infection as the cause of diseases classified elsewhere; E11.52 Type 2 diabetes mellitus with diabetic peripheral angiopathy with gangrene
CPT/HCPCS: 11042; 11045

== ENCOUNTER 2022-10-29 15:56 | Emergency (ER) | payer MEDICARE, MEDICAID ==
[~2022-10-29] VITALS: Ht 165 cm; Wt 91.0 kg
[2022-10-29 16:08] VITALS: BP 107/66
[2022-10-29] MEDS ORDERED: oxyCODONE IMMEDIATE RELEASE 5 MG TABLET PO ONE (16:45)
[2022-10-29 16:47] LABS: BASOPHILS # (AUTO) 0.1 10^3/uL (0.0-0.1); BASOPHILS % (AUTO) 0 % (0-10); EOSINOPHILS # (AUTO) 0.4 10^3/uL (0.0-0.3); EOSINOPHILS % (AUTO) 3 % (0-10); HEMATOCRIT 33 % (35-52); HEMOGLOBIN 11.1 g/dL (11.5-16.0); LYMPHOCYTES # (AUTO) 2.4 10^3/uL (1.0-4.0); LYMPHOCYTES % (AUTO) 15 % (12-44); MEAN CORPUSCULAR HEMOGLOBIN 28 pg (25-34); MEAN CORPUSCULAR HGB CONC 33 g/dL (32-36); MEAN CORPUSCULAR VOLUME 85 fL (80-99); MEAN PLATELET VOLUME 9.1 fL (9.0-12.2); MONOCYTES # (AUTO) 1.3 10^3/uL (0.0-1.0); MONOCYTES % (AUTO) 8 % (0-12); NEUTROPHILS # (AUTO) 12.3 10^3/uL (1.8-7.8); NEUTROPHILS % (AUTO) 73 % (42-75); PLATELET COUNT 439 10^3/uL (130-400); WHITE BLOOD COUNT 16.7 10^3/uL (4.3-11.0)
--- NOTE | 2022-10-29 16:56 | Diagnostic Imaging Report ---
INDICATION: Swelling, shortness of air. COMPARISON: 10/25/2022. FINDINGS: Heart size and vascularity are stable and normal. No findings of edema or pneumonia. No pleural fluid. IMPRESSION: Unremarkable frontal chest. Dictated by: Dictated on workstation # [id number]
[2022-10-29 17:03] LABS: CALCIUM 8.7 MG/DL (8.5-10.1)
[2022-10-29 17:04] LABS: TOTAL PROTEIN 7.5 GM/DL (6.4-8.2)
[2022-10-29 17:06] LABS: BILIRUBIN,TOTAL 0.4 MG/DL (0.1-1.0)
[2022-10-29 17:08] LABS: CREATININE SERUM 0.73 MG/DL (0.60-1.30)
[2022-10-29 17:14] LABS: INR 1.2 (0.8-1.4)
--- NOTE | 2022-10-29 17:17 | ED General ---
General Chief Complaint: Lower Extremity Stated Complaint: LEG SWELLING Nursing Triage Note: PT TO RM 2 BY WC WITH C/O INCREASING PAIN IN L LEG DUE TO DVT. ACCORDING TO FACILITY, PT TOOK ELEQUIS TODAY BUT REFUSED OVER THE WEEKEND Source of Information: Patient Exam Limitations: No Limitations History of Present Illness Date Seen by Provider: Oct 29, 2022 Time Seen by Provider: 16:30 Initial Comments Here from skilled nursing with report of intermittently taking her medicines for her blood clots including Eliquis as well as her antibiotics for possible cellulitis. Patient states that she has been taking everything right just like she is supposed to. She has been seen here multiple times in the last 2 weeks and has left AMA or declined admission. She states that she will do what ever she is supposed to do today. She is asking for pain medicine for her leg and she is currently on oxycodone 5 mg tablets every 4 hours as needed pain. Denies breathing problems. Patient has chronic weakness and known DVT with known wound to the left foot that is healing. No report of vomiting or diarrhea. Timing/Duration: 1 Week, Constant Severity: Moderate Associated Systoms: No Chest Pain, No Cough, No Fever/Chills, No Nausea/Vomiting, No Shortness of Air Allergies and Home Medications Allergies Coded Allergies: levofloxacin (Verified Allergy, Unknown, 10/25/22) sulfamethoxazole (Unverified Allergy, Unknown, 10/25/22) trimethoprim (Unverified Allergy, Unknown, 10/25/22) Patient Home Medication List Home Medication List Reviewed: Yes Acetaminophen (Acetaminophen) 325 Mg Tablet, 650 MG PO Q4H PRN for TEMPERATURE Prescribed by: KAPIL NEWSOME on 08/21/22 0605 Amoxicillin/Potassium Clav (Amox Tr-K Clv 875-125 mg Tab) 875 Mg-125 Mg Tablet, 875 MG PO BID Prescribed by: KAPIL NEWSOME on 08/21/22 0605 Amoxicillin/Potassium Clav (Amox Tr-K Clv 875-125 mg Tab) 875 Mg-125 Mg Tablet, 1 EACH PO BID Prescribed by: REYES CRISOSTOMO on 10/25/22 1314 Apixaban (Eliquis) 5 Mg Tablet, 5 MG PO BID Prescribed by: REYES CRISOSTOMO on 10/25/22 1314 Enoxaparin Sodium (Lovenox) 40 Mg/0.4 Ml Syringe, 40 MG SQ DAILY Prescribed by: KAPIL NEWSOME on 08/21/22604 Insulin Aspart (Novolog) 100 Unit/Ml Susp, 5 UNIT SQ AC Prescribed by: KAPIL NEWSOME on 08/21/22604 Insulin Determir (Levemir) 100 Unit/Ml Soln, 18 UNIT SQ BID Prescribed by: KAPIL NEWSOME on 08/21/22604 Lactulose (Lactulose) 20 Gram/30 Ml Solution, 10 GM PO BID Prescribed by: KAPIL NEWSOME on 08/21/22604 Lorazepam (Ativan) 0.5 Mg Tablet, 0.5 MG PO TID PRN for ANXIETY Prescribed by: KAPIL NEWSOME on 08/21/22604 Nicotine (Nicoderm Cq) 21 Mg/24 Hour Patch.td24, 21 MG TD DAILY@0900 Prescribed by: KAPIL NEWSOME on 08/21/22604 Oxycodone Hcl (Oxyir Tablet) 5 Mg Tab, 5 MG PO Q4HR PRN for PAIN-SEE DOSE INSTRUCTIONS Prescribed by: KAPIL NEWSOME on 08/21/22604 Sennosides/Docusate Sodium (Stool Softener-Laxative Tablet) 8.6 Mg-50 Mg Tablet, 1 EA PO BID Prescribed by: KAPIL NEWSOME on 08/21/22604 Review of Systems Review of Systems Constitutional: see HPI; No chills, No fever EENTM: no symptoms reported Respiratory: No cough, No short of breath Cardiovascular: No chest pain; edema Gastrointestinal: No nausea, No vomiting Genitourinary: no symptoms reported Musculoskeletal: No back pain; joint pain, muscle pain Skin: lesions Psychiatric/Neurological: Emotional Problems Past Uvomjyc-Mrhmgj-Ymsehm Hx Patient Social History Tobacco Use?: No Use of E-Cig and/or Vaping dev: No Substance use?: No Alcohol Use?: No Pt feels they are or have been: No Immunizations Up To Date Tetanus Booster (TDap): Unknown Seasonal Allergies Seasonal Allergies: No Past Medical History Surgery/Hospitalization HX: Partial Hysterectomy/Spine Surgery/Cholecystectomy/AMPUTATION OF 4TH AND 5TH TOE AND PORTION OF LATERAL FOOT. 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 Sexually Transmitted Disease: No HIV/AIDS: No Genitourinary: Yes Kidney Stones Gastrointestinal: Yes Gastroesophageal Reflux Musculoskeletal: Yes (CHRONIC LEG PAIN--L>R, osteomyelitis left foot) Arthritis, Chronic Back Pain Endocrine: Yes Diabetes, Insulin dep HEENT: No Loss of Vision: Denies Hearing Impairment: Denies Cancer: No Psychosocial: Yes Anxiety, Suicide Attempts, Bipolar, Depression Integumentary: Yes (VENOUS STASIS CHANGES TO LEGS-LEFT > RIGHT) Blood Disorders: Yes (HX OF BLOOD CLOTS) Adverse Reaction/Blood Tranf: No Family Medical History Reviewed Nursing Family Hx Diabetes mellitus 19 FATHER EMPHYSEMA 19 FATHER EPIEPSY G8 SISTER Hypertension 19 MOTHER STROKE 19 MOTHER No Family History of: Asthma No Pertinent Family Hx, Diabetes, Hypertension Physical Exam-Suspected Sepsis Physical Exam Vital Signs Vital Signs - First Documented 10/29/22 16:08 Temp 36.7 Pulse 93 Resp 17 B/P (MAP) 107/66 (80) Pulse Ox 97 Capillary Refill : Blood Pressure Mean: 80 Height, Weight, BMI Height: 5'7.00" Weight: 190lbs. 3.2oz. 86.794511vr; 33.00 BMI Method:Stated General Appearance: No Apparent Distress, Chronically ill HEENT: PERRL/EOMI, Pharynx Normal Neck: Non Tender, Supple Respiratory: Lungs Clear, Normal Breath Sounds Cardiovascular: Regular Rate, Rhythm, No Murmur Gastrointestinal: Non Tender, Soft Back: Normal Inspection, No CVA Tenderness, No Vertebral Tenderness Extremity: Pedal Edema (3+ bilateral lower extremities to above knees), Other (Seen to left foot that is clean, dry and intact without red streaks up the leg but lower legs are reddened) Neurologic/Psychiatric: Alert, Oriented x3, Other (Intermittently agitated in agreement with care) Skin: warm/dry, other (Bilateral lower extremities with redness noted in the soft tissue without red streaks up the leg. This is all mid calf or below bilateral) Focused Exam Lactate Level 10/29/22 16:39: Lactic Acid Level 1.48 Lactic Acid Level Laboratory Tests Test 10/29/22 16:39 Lactic Acid Level 1.48 MMOL/L (0.50-2.00) Progress/Results/Core Measures Suspected Sepsis SIRS Temperature: Pulse: 93 Respiratory Rate: 17 Laboratory Tests 10/29/22 16:39: White Blood Count 16.7H Blood Pressure 107 /66 Mean: 80 10/29/22 16:39: Lactic Acid Level 1.48 Laboratory Tests 10/29/22 16:39: Creatinine 0.73, INR Comment 1.2, Platelet Count 439H, Total Bilirubin 0.4 Results/Orders Lab Results Laboratory Tests Test 10/29/22 16:39 Range/Units White Blood Count 16.7 H 4.3-11.0 10^3/uL Red Blood Count 3.91 3.80-5.11 10^6/uL Hemoglobin 11.1 L 11.5-16.0 g/dL Hematocrit 33 L 35-52 % Mean Corpuscular Volume 85 80-99 fL Mean Corpuscular Hemoglobin 28 25-34 pg Mean Corpuscular Hemoglobin Concent 33 32-36 g/dL Red Cell Distribution Width 14.1 10.0-14.5 % Platelet Count 439 H 130-400 10^3/uL Mean Platelet Volume 9.1 9.0-12.2 fL Immature Granulocyte % (Auto) 2 % Neutrophils (%) (Auto) 73 42-75 % Lymphocytes (%) (Auto) 15 12-44 % Monocytes (%) (Auto) 8 0-12 % Eosinophils (%) (Auto) 3 0-10 % Basophils (%) (Auto) 0 0-10 % Neutrophils # (Auto) 12.3 H 1.8-7.8 10^3/uL Lymphocytes # (Auto) 2.4 1.0-4.0 10^3/uL Monocytes # (Auto) 1.3 H 0.0-1.0 10^3/uL Eosinophils # (Auto) 0.4 H 0.0-0.3 10^3/uL Basophils # (Auto) 0.1 0.0-0.1 10^3/uL Immature Granulocyte # (Auto) 0.3 H 0.0-0.1 10^3/uL Prothrombin Time 15.0 H 12.2-14.7 SEC INR Comment 1.2 0.8-1.4 Activated Partial Thromboplast Time 38 H 24-35 SEC Sodium Level 135 135-145 MMOL/L Potassium Level 4.0 3.6-5.0 MMOL/L Chloride Level 97 L 98-107 MMOL/L Carbon Dioxide Level 28 21-32 MMOL/L Anion Gap 10 5-14 MMOL/L Blood Urea Nitrogen 16 7-18 MG/DL Creatinine 0.73 0.60-1.30 MG/DL Estimat Glomerular Filtration Rate 95 BUN/Creatinine Ratio 22 Glucose Level 153 H 70-105 MG/DL Lactic Acid Level 1.48 0.50-2.00 MMOL/L Calcium Level 8.7 8.5-10.1 MG/DL Corrected Calcium 9.5 8.5-10.1 MG/DL Total Bilirubin 0.4 0.1-1.0 MG/DL Aspartate Amino Transf (AST/SGOT) 22 5-34 U/L Alanine Aminotransferase (ALT/SGPT) 14 0-55 U/L Alkaline Phosphatase 99 40-136 U/L Total Protein 7.5 6.4-8.2 GM/DL Albumin 3.0 L 3.2-4.5 GM/DL My Orders Orders - KYREE PLUNKETT MD Cbc With Automated Diff (10/29/22 16:35) Comprehensive Metabolic Panel (10/29/22 16:35) Blood Culture (10/29/22 16:35) Sputum Culture (10/29/22 16:35) Urinalysis (10/29/22 16:35) Urine Culture (10/29/22 16:35) Protime With Inr (10/29/22 16:35) Partial Thromboplastin Time (10/29/22 16:35) Chest 1 View, Ap/Pa Only (10/29/22 16:35) Ed Iv/Invasive Line Start (10/29/22 16:35) Vital Signs Adult Sepsis Patie Q15M (10/29/22 16:35) O2 (10/29/22 16:35) Remove Rings In Anticipation O (10/29/22 16:35) Lactic Acid Analyzer (10/29/22 16:35) Oxycodone Immediate Rel Tablet (Oxycodon (10/29/22 16:45) Medications Given in ED Current Medications Medications Dose Ordered Sig/Phuc Route Start Time Stop Time Status Last Admin Dose Admin Oxycodone HCl 5 mg ONCE ONCE PO 10/29/22 16:45 10/29/22 16:46 DC 10/29/22 16:43 5 MG Vital Signs/I&O 10/29/22 16:08 Temp 36.7 Pulse 93 Resp 17 B/P (MAP) 107/66 (80) Pulse Ox 97 Capillary Refill : Blood Pressure Mean: 80 Progress Note : Progress Note Seen and evaluated. Sepsis protocol initiated. Patient apparently took her Eliquis and her antibiotic today but skilled nursing report states that she has not been taking that well over the weekend. Patient has been known to go AGAINST MEDICAL ADVICE especially over the last 2 weeks. Previous 2 visits, apparently left AMA. Currently she is agreeable to plan. We will get IV and labs including CBC, CMP, blood cultures and lactic acid as well as UA and chest x-ray for sepsis protocol. Monitor patient. I did order oxycodone 5 mg immediate release for pain. Monitor patient. Differential diagnosis includes DVT, cellulitis, sepsis 1753: CBC reviewed and white count is elevated but consistent with previous visit 4 days ago. CMP grossly normal. Lactic acid is negative. Chest x-ray reviewed by me shows no obvious infiltrate on my interpretation and report agrees. Patient is now stating that she wants to leave and she is going to walk back to the skilled nursing. She will stay for a dose of Rocephin IV as this will at least get a little bit more antibiotic and her before she leaves this time. 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 Patient is adamant that she has not refused many of her medicines at the skilled nursing and she does not know what they are talking about but then does not want to listen to her medical advice now. prison. She has accepted the Rocephin IV. No indication for admission currently so we will discharge her back and she will continue the medications as previously prescribed. 1803: Patient now wants to leave AMA. She is refusing antibiotics. She has verbalized understanding of the risks and states she knows her rights and wants to leave. I did discuss with her at length that intermittent therapy with cellulitis and DVT could ultimately cause her and patient states that she is doing everything like she is supposed to and wants to leave. I did discuss again with her the risk of severe infection and and she verbalized understanding with myself and 2 other nurses present. She will sign the AMA paperwork. Diagnostic Imaging Diagonstic Imaging: Xray Plain Films/CT/US/NM/MRI: chest Comments [facility] [place] NAME: KATARZYNA WEAVER [facility] REC#: [id number] PT STATUS: REG ER : 1965 PHYSICIAN: KYREE PLUNKETT MD ADMIT DATE: 10/29/22/ER Draft Date of Exam:10/29/22 CHEST 1 VIEW, AP/PA ONLY INDICATION: Swelling, shortness of air. COMPARISON: 10/25/2022. FINDINGS: Heart size and vascularity are stable and normal. No findings of edema or pneumonia. No pleural fluid. IMPRESSION: Unremarkable frontal chest. Dictated on workstation # [id number] Dict: 10/29/22 1652 Trans: 10/29/22 1655 [id number] Interpreted by: SALONI CARLSON Electronically signed by: Departure Impression Primary Impression: Cellulitis of left leg Additional Impression: Left leg DVT Qualified Codes: I82.402 - Acute embolism and thrombosis of unspecified deep veins of left lower extremity Disposition: 07 AGAINST MEDICAL ADVICE Condition: Against Medical Advice Departure-Patient Inst. Decision time for Depature: 18:08 Referrals: [facility] (PCP/Family) Primary Care Physician Patient Instructions: Cellulitis (Skin Infection), Adult (DC), Deep Vein Thrombosis (Blood Clots in the Legs) (DC) Add. Discharge Instructions: All discharge instructions reviewed with patient and/or family. Voiced understanding. It is imperative that you take your medications as prescribed. Do not refused to take your medicines as they are there to help you. Your leg swelling and infection will not get better without the medicines. Return for other concerns as needed. KYREE PLUNKETT MD Oct 29, 2022 17:17
[2022-10-29] MEDS ORDERED: cefTRIAXone 1,000 MG VIAL IV/IM ONE (17:53)
[2022-10-29] MEDS: cefTRIAXone IV/IM 1,000 MG in NS (IVPB) 50 ML 50 ML IV STA ×2 (17:59→18:01)
== END 2022-10-29 18:11 | disposition left against medical advice (07) ==
LOC: EDUNIT# 15:56 → ER 15:58
DX: L03.116 Cellulitis of left lower limb (principal); I82.402 Acute embolism and thrombosis of unspecified deep veins of left lower extremity; E11.9 Type 2 diabetes mellitus without complications; Z79.4 Long term (current) use of insulin; Z79.01 Long term (current) use of anticoagulants; Z88.1 Allergy status to other antibiotic agents; Z88.2 Allergy status to sulfonamides
CPT/HCPCS: 36415; 71045; 80053; 83605; 85025; 85610; 85730; 87040

== ENCOUNTER → 2022-10-30 | Outpatient (CLI) | payer MEDICARE, MEDICAID | LOC: WOUNDCARE 08:56 | PROVIDERS: ATTEND Family Medicine | DX: T81.31XA Disruption of external operation (surgical) wound, not elsewhere classified, initial encounter (principal); M86.172 Other acute osteomyelitis, left ankle and foot; E11.621 Type 2 diabetes mellitus with foot ulcer; E11.65 Type 2 diabetes mellitus with hyperglycemia; E11.40 Type 2 diabetes mellitus with diabetic neuropathy, unspecified; E44.0 Moderate protein-calorie malnutrition; M65.072 Abscess of tendon sheath, left ankle and foot; T43.655A Adverse effect of methamphetamines, initial encounter; T65.222A Toxic effect of tobacco cigarettes, intentional self-harm, initial encounter; I70.245 Atherosclerosis of native arteries of left leg with ulceration of other part of foot; R60.0 Localized edema; B96.5 Pseudomonas (aeruginosa) (mallei) (pseudomallei) as the cause of diseases classified elsewhere; B95.62 Methicillin resistant Staphylococcus aureus infection as the cause of diseases classified elsewhere; Z91.198 Patient's noncompliance with other medical treatment and regimen for other reason; Z91.148 Patient's other noncompliance with medication regimen for other reason; E11.52 Type 2 diabetes mellitus with diabetic peripheral angiopathy with gangrene; I96 Gangrene, not elsewhere classified | CPT/HCPCS: 11042; 11045 ==

== ENCOUNTER → 2022-11-09 | Outpatient (CLI) | payer MEDICARE, MEDICAID | LOC: WOUNDCARE 08:50 | PROVIDERS: ATTEND Family Medicine | DX: T81.31XA Disruption of external operation (surgical) wound, not elsewhere classified, initial encounter (principal); M86.172 Other acute osteomyelitis, left ankle and foot; E11.621 Type 2 diabetes mellitus with foot ulcer; E11.65 Type 2 diabetes mellitus with hyperglycemia; E11.40 Type 2 diabetes mellitus with diabetic neuropathy, unspecified; E44.0 Moderate protein-calorie malnutrition; M65.072 Abscess of tendon sheath, left ankle and foot; T43.655A Adverse effect of methamphetamines, initial encounter; T65.222A Toxic effect of tobacco cigarettes, intentional self-harm, initial encounter; I70.245 Atherosclerosis of native arteries of left leg with ulceration of other part of foot; R59.0 Localized enlarged lymph nodes; B96.5 Pseudomonas (aeruginosa) (mallei) (pseudomallei) as the cause of diseases classified elsewhere; B95.62 Methicillin resistant Staphylococcus aureus infection as the cause of diseases classified elsewhere; Z91.148 Patient's other noncompliance with medication regimen for other reason; Z91.198 Patient's noncompliance with other medical treatment and regimen for other reason; I82.402 Acute embolism and thrombosis of unspecified deep veins of left lower extremity; E11.52 Type 2 diabetes mellitus with diabetic peripheral angiopathy with gangrene; I96 Gangrene, not elsewhere classified | CPT/HCPCS: 11042; 11045 ==

== ENCOUNTER → 2022-11-19 | Outpatient (CLI) | payer MEDICARE, MEDICAID | LOC: WOUNDCARE 13:52 | PROVIDERS: ATTEND Family Medicine | DX: I96 Gangrene, not elsewhere classified (principal); T81.31XA Disruption of external operation (surgical) wound, not elsewhere classified, initial encounter; M86.172 Other acute osteomyelitis, left ankle and foot; E11.621 Type 2 diabetes mellitus with foot ulcer; E11.65 Type 2 diabetes mellitus with hyperglycemia; E11.40 Type 2 diabetes mellitus with diabetic neuropathy, unspecified; E44.0 Moderate protein-calorie malnutrition; M65.072 Abscess of tendon sheath, left ankle and foot; T43.625A Adverse effect of amphetamines, initial encounter; T65.292A Toxic effect of other tobacco and nicotine, intentional self-harm, initial encounter; I70.245 Atherosclerosis of native arteries of left leg with ulceration of other part of foot; R60.0 Localized edema; B96.5 Pseudomonas (aeruginosa) (mallei) (pseudomallei) as the cause of diseases classified elsewhere; B95.61 Methicillin susceptible Staphylococcus aureus infection as the cause of diseases classified elsewhere; I82.402 Acute embolism and thrombosis of unspecified deep veins of left lower extremity; Z91.198 Patient's noncompliance with other medical treatment and regimen for other reason; Z91.148 Patient's other noncompliance with medication regimen for other reason | CPT/HCPCS: 11042; 11045 ==

== ENCOUNTER → 2022-11-28 | Outpatient (CLI) | payer MEDICARE, MEDICAID | LOC: WOUNDCARE 09:05 | PROVIDERS: ATTEND Family Medicine | DX: T81.31XA Disruption of external operation (surgical) wound, not elsewhere classified, initial encounter (principal); I96 Gangrene, not elsewhere classified; M86.172 Other acute osteomyelitis, left ankle and foot; I70.245 Atherosclerosis of native arteries of left leg with ulceration of other part of foot; I82.402 Acute embolism and thrombosis of unspecified deep veins of left lower extremity; E11.621 Type 2 diabetes mellitus with foot ulcer; E11.65 Type 2 diabetes mellitus with hyperglycemia; E11.40 Type 2 diabetes mellitus with diabetic neuropathy, unspecified; E44.0 Moderate protein-calorie malnutrition; M65.072 Abscess of tendon sheath, left ankle and foot; T43.655A Adverse effect of methamphetamines, initial encounter; T65.292A Toxic effect of other tobacco and nicotine, intentional self-harm, initial encounter; R60.0 Localized edema; B96.5 Pseudomonas (aeruginosa) (mallei) (pseudomallei) as the cause of diseases classified elsewhere; Z91.148 Patient's other noncompliance with medication regimen for other reason; Z91.198 Patient's noncompliance with other medical treatment and regimen for other reason | CPT/HCPCS: 11042; 11045 ==

== ENCOUNTER → 2022-12-25 | Outpatient (CLI) | payer MEDICARE, MEDICAID | LOC: WOUNDCARE 13:49 | PROVIDERS: ATTEND Family Medicine | DX: E11.621 Type 2 diabetes mellitus with foot ulcer (principal); E11.65 Type 2 diabetes mellitus with hyperglycemia; E11.40 Type 2 diabetes mellitus with diabetic neuropathy, unspecified; M86.172 Other acute osteomyelitis, left ankle and foot; T81.31XA Disruption of external operation (surgical) wound, not elsewhere classified, initial encounter; E44.0 Moderate protein-calorie malnutrition; M65.072 Abscess of tendon sheath, left ankle and foot; T43.655A Adverse effect of methamphetamines, initial encounter; T65.292A Toxic effect of other tobacco and nicotine, intentional self-harm, initial encounter; I70.245 Atherosclerosis of native arteries of left leg with ulceration of other part of foot; R60.0 Localized edema; B96.5 Pseudomonas (aeruginosa) (mallei) (pseudomallei) as the cause of diseases classified elsewhere; Z91.148 Patient's other noncompliance with medication regimen for other reason; Z91.198 Patient's noncompliance with other medical treatment and regimen for other reason; I82.402 Acute embolism and thrombosis of unspecified deep veins of left lower extremity; E11.52 Type 2 diabetes mellitus with diabetic peripheral angiopathy with gangrene | CPT/HCPCS: 97597 ==

== ENCOUNTER → 2023-01-01 | Outpatient (CLI) | payer MEDICARE, MEDICAID | LOC: WOUNDCARE 08:24 | PROVIDERS: ATTEND Family Medicine | DX: E11.621 Type 2 diabetes mellitus with foot ulcer (principal); E11.65 Type 2 diabetes mellitus with hyperglycemia; E11.40 Type 2 diabetes mellitus with diabetic neuropathy, unspecified; T81.31XA Disruption of external operation (surgical) wound, not elsewhere classified, initial encounter; M86.172 Other acute osteomyelitis, left ankle and foot; E44.0 Moderate protein-calorie malnutrition; M65.072 Abscess of tendon sheath, left ankle and foot; T43.655A Adverse effect of methamphetamines, initial encounter; T65.292A Toxic effect of other tobacco and nicotine, intentional self-harm, initial encounter; I70.245 Atherosclerosis of native arteries of left leg with ulceration of other part of foot; R60.0 Localized edema; B96.5 Pseudomonas (aeruginosa) (mallei) (pseudomallei) as the cause of diseases classified elsewhere; Z91.148 Patient's other noncompliance with medication regimen for other reason; Z91.198 Patient's noncompliance with other medical treatment and regimen for other reason; I82.402 Acute embolism and thrombosis of unspecified deep veins of left lower extremity; E11.52 Type 2 diabetes mellitus with diabetic peripheral angiopathy with gangrene | CPT/HCPCS: 11042 ==

== ENCOUNTER → 2023-01-07 | Outpatient (CLI) | payer MEDICARE, MEDICAID | LOC: WOUNDCARE 10:14 | PROVIDERS: ATTEND Family Medicine | DX: E11.621 Type 2 diabetes mellitus with foot ulcer (principal); E11.65 Type 2 diabetes mellitus with hyperglycemia; E11.40 Type 2 diabetes mellitus with diabetic neuropathy, unspecified; M86.172 Other acute osteomyelitis, left ankle and foot; T81.31XA Disruption of external operation (surgical) wound, not elsewhere classified, initial encounter; E44.0 Moderate protein-calorie malnutrition; M65.072 Abscess of tendon sheath, left ankle and foot; T43.655A Adverse effect of methamphetamines, initial encounter; T65.292A Toxic effect of other tobacco and nicotine, intentional self-harm, initial encounter; I70.245 Atherosclerosis of native arteries of left leg with ulceration of other part of foot; R60.0 Localized edema; B96.5 Pseudomonas (aeruginosa) (mallei) (pseudomallei) as the cause of diseases classified elsewhere; Z91.198 Patient's noncompliance with other medical treatment and regimen for other reason; I82.402 Acute embolism and thrombosis of unspecified deep veins of left lower extremity; E11.52 Type 2 diabetes mellitus with diabetic peripheral angiopathy with gangrene | CPT/HCPCS: 11042 ==

== ENCOUNTER → 2023-01-18 | Outpatient (CLI) | payer MEDICARE, MEDICAID | LOC: WOUNDCARE 08:22 | PROVIDERS: ATTEND Family Medicine | DX: T81.31XA Disruption of external operation (surgical) wound, not elsewhere classified, initial encounter (principal); I96 Gangrene, not elsewhere classified; E11.621 Type 2 diabetes mellitus with foot ulcer; E11.65 Type 2 diabetes mellitus with hyperglycemia; E11.40 Type 2 diabetes mellitus with diabetic neuropathy, unspecified; M86.172 Other acute osteomyelitis, left ankle and foot; E44.0 Moderate protein-calorie malnutrition; M65.072 Abscess of tendon sheath, left ankle and foot; T43.655A Adverse effect of methamphetamines, initial encounter; T65.292A Toxic effect of other tobacco and nicotine, intentional self-harm, initial encounter; I70.245 Atherosclerosis of native arteries of left leg with ulceration of other part of foot; R60.0 Localized edema; B96.5 Pseudomonas (aeruginosa) (mallei) (pseudomallei) as the cause of diseases classified elsewhere; I82.402 Acute embolism and thrombosis of unspecified deep veins of left lower extremity; Z91.198 Patient's noncompliance with other medical treatment and regimen for other reason; Z91.148 Patient's other noncompliance with medication regimen for other reason | CPT/HCPCS: 11042 ==

== ENCOUNTER → 2023-01-25 | Outpatient (CLI) | payer MEDICARE, MEDICAID | LOC: WOUNDCARE 08:28 | PROVIDERS: ATTEND Family Medicine | DX: T81.31XA Disruption of external operation (surgical) wound, not elsewhere classified, initial encounter (principal); M86.172 Other acute osteomyelitis, left ankle and foot; E11.621 Type 2 diabetes mellitus with foot ulcer; E11.65 Type 2 diabetes mellitus with hyperglycemia; E11.40 Type 2 diabetes mellitus with diabetic neuropathy, unspecified; E44.0 Moderate protein-calorie malnutrition; M65.072 Abscess of tendon sheath, left ankle and foot; T43.655A Adverse effect of methamphetamines, initial encounter; T65.292A Toxic effect of other tobacco and nicotine, intentional self-harm, initial encounter; I70.245 Atherosclerosis of native arteries of left leg with ulceration of other part of foot; I82.402 Acute embolism and thrombosis of unspecified deep veins of left lower extremity; E11.52 Type 2 diabetes mellitus with diabetic peripheral angiopathy with gangrene; B96.5 Pseudomonas (aeruginosa) (mallei) (pseudomallei) as the cause of diseases classified elsewhere; Z91.148 Patient's other noncompliance with medication regimen for other reason; R60.0 Localized edema; Z91.198 Patient's noncompliance with other medical treatment and regimen for other reason | CPT/HCPCS: 11042 ==

== ENCOUNTER → 2023-02-08 | Outpatient (CLI) | payer MEDICARE, MEDICAID ==
[2023-02-08 09:31] LABS: BASOPHILS % (AUTO) 0 % (0-10); EOSINOPHILS # (AUTO) 0.3 10^3/uL (0.0-0.3); EOSINOPHILS % (AUTO) 4 % (0-10); HEMATOCRIT 44 % (35-52); HEMOGLOBIN 14.3 g/dL (11.5-16.0); LYMPHOCYTES # (AUTO) 1.9 10^3/uL (1.0-4.0); LYMPHOCYTES % (AUTO) 30 % (12-44); MEAN CORPUSCULAR HEMOGLOBIN 27 pg (25-34); MEAN CORPUSCULAR HGB CONC 32 g/dL (32-36); MEAN CORPUSCULAR VOLUME 84 fL (80-99); MEAN PLATELET VOLUME 9.6 fL (9.0-12.2); MONOCYTES # (AUTO) 0.6 10^3/uL (0.0-1.0); MONOCYTES % (AUTO) 9 % (0-12); NEUTROPHILS # (AUTO) 3.6 10^3/uL (1.8-7.8); NEUTROPHILS % (AUTO) 57 % (42-75); PLATELET COUNT 235 10^3/uL (130-400); WHITE BLOOD COUNT 6.4 10^3/uL (4.3-11.0)
[2023-02-08 09:52] LABS: ALBUMIN 4.1 GM/DL (3.2-4.5); BILIRUBIN,TOTAL 0.5 MG/DL (0.1-1.0); CALCIUM 9.6 MG/DL (8.5-10.1); CREATININE SERUM 0.77 MG/DL (0.60-1.30); POTASSIUM 3.8 MMOL/L (3.6-5.0); TOTAL PROTEIN 8.5 GM/DL (6.4-8.2)
== END ==
LOC: WOUNDCARE 08:33
PROVIDERS: ATTEND Family Medicine
DX: T81.31XA Disruption of external operation (surgical) wound, not elsewhere classified, initial encounter (principal); I70.245 Atherosclerosis of native arteries of left leg with ulceration of other part of foot; I82.402 Acute embolism and thrombosis of unspecified deep veins of left lower extremity; E11.621 Type 2 diabetes mellitus with foot ulcer; E11.65 Type 2 diabetes mellitus with hyperglycemia; E11.40 Type 2 diabetes mellitus with diabetic neuropathy, unspecified; M86.172 Other acute osteomyelitis, left ankle and foot; E44.0 Moderate protein-calorie malnutrition; M65.072 Abscess of tendon sheath, left ankle and foot; T43.625A Adverse effect of amphetamines, initial encounter; T65.292A Toxic effect of other tobacco and nicotine, intentional self-harm, initial encounter; R60.0 Localized edema; B96.5 Pseudomonas (aeruginosa) (mallei) (pseudomallei) as the cause of diseases classified elsewhere; Z91.148 Patient's other noncompliance with medication regimen for other reason; Z91.198 Patient's noncompliance with other medical treatment and regimen for other reason
CPT/HCPCS: 11042; 36415; 80053; 83036; 85025